=== PATIENT | male | born 1955 | race Caucasian/White ===

== ENCOUNTER → 2016-12-14 | Outpatient (CLI) | payer OTHER ==
[~2016-12-14] MED LIST: ASPCH81X PO; CALC-440 PO; CETI10TA10 PO; CHOL20007 PO; CLOP1TAB15 PO; COEN1CAP17 PO; CYAN100020 PO; DOCU100C31 PO; DOXA4TAB2 PO; FLUO20CA20 PO; FLUT0.15 NAE; GABA-112 PO; HYDR-4332 PO; HYDR50TA3 PO; HYOS1TAB PO; LANS30CA41 PO; LIVALO PO; METO1TAB71 PO; MULT-506 PO; NTRARSCL SL; OPTIRAY 320 IV PRN; OXYC-57 PO; POTA1TAB97 PO; RAMI10CA PO; SUCR1TAB29 PO; TEMA15CA4 PO; TYL325X PO
[2016-12-14 13:26] LABS: BASO % 0.2 %; BASO ABS # 0.01 K/uL (0-0.2); EOS % 3.7 %; LYMPH % 36.8 %; LYMPH ABS # 2.21 K/uL (1.2-3.4); MEAN CELL VOLUME 90.1 fL (80-100); MEAN CORPUSCULAR HEMOGLOBIN 31.7 pg (25-34); MEAN PLATELET VOLUME 9.9 fL (7.4-10.4); MONO % 7.7 %; NEUT % 51.6 %; PLATELET COUNT 183 K/uL (130-400); RED BLOOD COUNT 4.77 M/uL (4.7-6.1)
[2016-12-14 13:35] LABS: COMPLETE YES; MEAN CORPUSCULAR HGB CONC 35.1 g/dl (32-36)
[2016-12-14 13:49] LABS: ALT/SGPT 29 U/L (12-78); BLOOD UREA NITROGEN 14 mg/dl (7-18); BUN/CREATININE RATIO 14.2 (10-20); CARBON DIOXIDE 26 mmol/L (21-32); CHLORIDE 103 mmol/L (98-107); CREATININE 0.96 mg/dl (0.60-1.40); GLUCOSE 84 mg/dl (70-99); MAGNESIUM 2.1 mg/dl (1.8-2.4); POTASSIUM 3.8 mmol/L (3.5-5.1); SODIUM 140 mmol/L (136-145)
[2016-12-14 13:57] LABS: ALB/GLOB RATIO 1.4 (0.9-2); ALKALINE PHOSPHATASE 91 U/L (45-117); AST/SGOT 22 U/L (15-37)
--- NOTE | 2016-12-14 15:44 | DIAGNOSTIC IMAGING REPORT ---
CT OF THE ABDOMEN AND PELVIS WITH CONTRAST CLINICAL HISTORY: Abdominal pain. COMPARISON STUDY: CT of the abdomen and pelvis September 29, 2016. TECHNIQUE: Following IV administration of 93 mL of Optiray-320, axial images of the abdomen and pelvis were obtained from the lung bases to the proximal femurs. Images were reviewed in the axial, sagittal, and coronal planes. IV contrast was administered without complication. Oral contrast was administered. CT DOSE: 2175.06 mGy.cm FINDINGS: Lung bases are clear. Pacer leads are noted. Post surgical findings involving the stomach are unchanged. There is no pneumatosis, free air or portal venous gas. The liver, spleen, adrenal glands, kidneys and pancreas are unremarkable. There is no biliary or pancreatic ductal dilatation. There is no hydronephrosis. There are post surgical findings within the spine. The appendix is normal. An old epiploic appendage along the anterior aspect of the descending colon is incidentally noted. There is mild wall thickening with minimal mesenteric infiltration of a small bowel loop within the right mid abdomen. The extent of small bowel wall thickening has improved since exam of September 29, 2016. There is a moderate amount of stool within the colon. There is no lymphadenopathy. There are no suspicious osseous lesions. IMPRESSION: 1. Normal appendix. 2. Mild wall thickening with minimal associated mesenteric infiltration and hyperemia of a small bowel loop within the right mid abdomen. This suggests a nonspecific enteritis. Similar but more extensive findings were shown on CT of September 29, 2016. 3. Colonic diverticulosis without evidence for acute diverticulitis. Electronically signed by: Meir Vasquez M.D. 12/14/2016 3:42 PM Dictated Date/Time: 12/14/2016 3:32 PM
--- NOTE | 2016-12-18 09:41 | CODING QUERY MEDICAL NECESSITY ---
SUPPORTING DIAGNOSIS NEEDED A supporting diagnosis is required for the test/procedure performed on this patient in order for us to be reimbursed by the patient's insurance. Please provide a supporting diagnosis for the following test/procedure listed below next to the test name along with your signature. *If there is no additional diagnosis for this patient that would support the following test/procedure please document that below next to the test/procedure. Test(s)/Procedure(s) that require a supporting diagnosis: * VITAMIN D 25-HYDROXY DIAGNOSIS: * DOS: 12/14/16 Provider Signature: Date: Thank you Tianna Alejo Health Information Management Once completed, please kindly fax back to [phone] For questions please call [phone]
== END | disposition home or self-care (01) ==
LOC: C.CTS 12:54
PROVIDERS: ATTEND Nurse Practitioner
DX: K35.89 Other acute appendicitis (principal); M54.5 Low back pain; I10 Essential (primary) hypertension; E78.5 Hyperlipidemia, unspecified; K21.0 Gastro-esophageal reflux disease with esophagitis; F33.0 Major depressive disorder, recurrent, mild; E55.9 Vitamin D deficiency, unspecified

== ENCOUNTER 2016-12-22 07:29 | Day surgery (SDC) | payer OTHER ==
[2016-12-11 12:25] VITALS: BMI 41.0
--- NOTE | 2016-12-11 13:06 | PAT Medication Instructions ---
Service Date Dec 11, 2016. Current Home Medication List Acetaminophen (Tylenol), 650 MG PO Q4 PRN for Pain Aspirin (Aspirin Chewable), 81 MG PO HS Calcium Citrate-Vitamin D (Calcium Citrate + D3), 1 TAB PO QAM Cetirizine Hcl (Zyrtec), 10 MG PO QAM Cholecalciferol (Vitamin D3), 1 TAB PO QAM Clopidogrel (Plavix), 75 MG PO QAM Coenzyme Q10 (Ubidecarenone) (Co Q 10), 200 MG PO QPM Cyanocobalamin (Vitamin B12), 1 TAB PO DAILY AT NOON Docusate Sodium (Docusate Sodium), 100 MG PO BID Doxazosin Mesylate (Cardura), 4 MG PO HS Fluoxetine Hcl (Pmdd) (Fluoxetine), 1 CAP PO QPM Fluticasone Propionate (Nasal) (Flonase Allergy Relief), 1 SPRAY BHAVIK DAILY PRN for PRN Gabapentin (Neurontin), 100-200 MG PO QPM Hydrochlorothiazide (Hctz), 50 MG PO QAM Hydrocodone-Acetaminophen (LORTAB 10-325 mg), 1 TAB PO QID PRN for Pain Hyoscyamine Sulfate (Levsin), 0.125 MG PO Q6 PRN for ABD PAIN Lansoprazole (Prevacid), 30 MG PO BID Metoprolol Succinate (Toprolxl (Toprol-Xl), 100 MG PO QAM Multivitamin (Multivitamin), 1 TAB PO QAM Nitroglycerin (Nitrolingual Pumpspray), [address] SL DIRECTED PRN for Chest Pain Potassium Chloride (K-Tab), 1 TAB PO BID Ramipril (Ramipril), 1 CAP PO BID Sucralfate (Carafate), 1 TAB PO QID Temazepam (Restoril), 15 MG PO HS [Livalo], 4 MG PO HS Medication Instructions For Your Scheduled Surgery - To continue Aspirin prior to surgery per surgeon/news wire photo operator instructions: Aspirin (Aspirin Chewable), 81 MG PO HS - To hold Plavix 7 days prior to surgery per surgeon/news wire photo operator instructions: Clopidogrel (Plavix), 75 MG PO QAM - Hold the following medications starting 12/12/16: Coenzyme Q10 (Ubidecarenone) (Co Q 10), 200 MG PO QPM - Hold the following medications the morning of surgery: Sucralfate (Carafate), 1 TAB PO QID Potassium Chloride (K-Tab), 1 TAB PO BID Multivitamin (Multivitamin), 1 TAB PO QAM Hyoscyamine Sulfate (Levsin), 0.125 MG PO Q6 PRN for ABD PAIN Hydrochlorothiazide (Hctz), 50 MG PO QAM Docusate Sodium (Docusate Sodium), 100 MG PO BID Cyanocobalamin (Vitamin B12), 1 TAB PO DAILY AT NOON Cetirizine Hcl (Zyrtec), 10 MG PO QAM Cholecalciferol (Vitamin D3), 1 TAB PO QAM Calcium Citrate-Vitamin D (Calcium Citrate + D3), 1 TAB PO QAM Ramipril (Ramipril), 1 CAP PO BID - Take the following medications the morning of surgery with a sip of water: Nitroglycerin (Nitrolingual Pumpspray), 1 SPRAY SL DIRECTED PRN for Chest Pain (if needed) Metoprolol Succinate (Toprolxl (Toprol-Xl), 100 MG PO QAM Lansoprazole (Prevacid), 30 MG PO BID Hydrocodone-Acetaminophen (LORTAB 10-325 mg), 1 TAB PO QID PRN for Pain (okay to take up to 4 hours prior to surgery if needed) Fluticasone Propionate (Nasal) (Flonase Allergy Relief), 1 SPRAY BHAVIK DAILY PRN for PRN Acetaminophen (Tylenol), 650 MG PO Q4 PRN for Pain - Hold the following medications as scheduled the night before surgery: Ramipril (Ramipril), 1 CAP PO BID - Take the following medications as scheduled the night before surgery: Temazepam (Restoril), 15 MG PO HS Sucralfate (Carafate), 1 TAB PO QID Potassium Chloride (K-Tab), 1 TAB PO BID Nitroglycerin (Nitrolingual Pumpspray), 1 SPRAY SL DIRECTED PRN for Chest Pain (if needed) Lansoprazole (Prevacid), 30 MG PO BID Hyoscyamine Sulfate (Levsin), 0.125 MG PO Q6 PRN for ABD PAIN Hydrocodone-Acetaminophen (LORTAB 10-325 mg), 1 TAB PO QID PRN for Pain Gabapentin (Neurontin), 100-200 MG PO QPM Fluticasone Propionate (Nasal) (Flonase Allergy Relief), 1 SPRAY BHAVIK DAILY PRN for PRN Fluoxetine Hcl (Pmdd) (Fluoxetine), 1 CAP PO QPM Doxazosin Mesylate (Cardura), 4 MG PO HS Docusate Sodium (Docusate Sodium), 100 MG PO BID Acetaminophen (Tylenol), 650 MG PO Q4 PRN for Pain [Livalo], 4 MG PO HS If you have any questions please call us at [phone] (Courtney Tellez PA-C) or [phone] or [phone]
[2016-12-11 14:15] LABS: BASO % 0.6 %; BASO ABS # 0.03 K/uL (0-0.2); COMPLETE YES; HEMATOCRIT 42.3 % (42-52); LYMPH % 34.7 %; LYMPH ABS # 1.89 K/uL (1.2-3.4); MEAN CELL VOLUME 89.8 fL (80-100); MEAN CORPUSCULAR HEMOGLOBIN 31.6 pg (25-34); MEAN CORPUSCULAR HGB CONC 35.2 g/dl (32-36); MEAN PLATELET VOLUME 10.2 fL (7.4-10.4); MONO % 12.3 %; NEUT % 48.4 %; PLATELET COUNT 181 K/uL (130-400); RED BLOOD COUNT 4.71 M/uL (4.7-6.1); WHITE BLOOD COUNT 5.45 K/uL (4.8-10.8)
[2016-12-11 14:32] LABS: BUN/CREATININE RATIO 13.7 (10-20); CALCIUM 9.1 mg/dl (8.5-10.1); CREATININE 0.95 mg/dl (0.60-1.40); POTASSIUM 3.8 mmol/L (3.5-5.1)
[2016-12-22] VITALS (7 sets, daily range): BP systolic 124–150; BP diastolic 53–99; PULSE 69–76; TEMP 36.5–36.9; O2SAT 93–96; Ht 170.2 cm; Wt 121.3 kg
[~2016-12-22] VITALS: Ht 170.2 cm; Wt 121.3 kg
[~2016-12-22 07:29] MED LIST changes: +CEFAZOLIN 3000 MG/65 ML D5W 65 ML IV SCH; +LACTATED RINGER'S 1000ML 1,000 ML IV SCH; -OPTIRAY 320 IV PRN; -OXYC-57 PO
[2016-12-22] MEDS ORDERED: MIDAZOLAM HCL 1 MG/ML 2ML VIAL ONE (08:04)
[2016-12-22] MEDS ORDERED: PROPOFOL IV EMULSION 10 MG/ML 20 ML VIAL IV ONE (08:04)
[2016-12-22] MEDS ORDERED: FENTANYL CITRATE INJ 50 MCG/1 ML 2 ML VIAL ONE ×3 (08:04→10:27)
[2016-12-22] MEDS ORDERED: LIDOCAINE HCL 2% 2 ML VIAL (20MG/ML) ONE (08:04)
[2016-12-22] MEDS ORDERED: ONDANSETRON INJ 2 MG/ML 2 ML VIAL ONE (08:04)
[2016-12-22] MEDS ORDERED: ROCURONIUM BROMIDE 10 MG/ML 5 ML VIAL ONE (08:04)
[2016-12-22] MEDS ORDERED: LIDOCAINE HCL 1% 20 ML VIAL ONE (09:11)
[2016-12-22] MEDS ORDERED: BUPIVACAINE 0.5 % 5 MG/1 ML MPF 30ML VIAL ONE (09:12)
[2016-12-22] MEDS ORDERED: BACITRACIN OINT 15 GM TUBE ONE (09:12)
--- NOTE | 2016-12-22 09:13 | History and Physical ---
History & Physical Date & Time of Service: Dec 22, 2016 at 09:01 Chief Complaint: Chronic Cholecystitis Primary Care Physician: Apolonia Bolanos History of Present Illness Source: patient pt is a 61 year old male who presents with dysfunction of gallbladder, pt persents with RUQ pain, nausea, no vomiting, pt had HIDA scan showed lower EF of gallbladder, pt requests to do cholecystectomy, pt had CAD and 6 heart stents in and pacemaker in 2001, pt saw his broadcast news producer for cardiac clearence, pt acepted the surgery risks. Past Medical/Surgical History Medical Problems: (1) A-fib Status: Chronic (2) AAA (abdominal aortic aneurysm) Status: Resolved (3) ATRIAL FIBRILLATION Status: Chronic (4) CARDIAC PACEMAKER IN SITU Status: Chronic (5) CORONARY ATHEROSCLEROSIS OF [place] CORONARY VESSEL Status: Chronic (6) ESOPHAGEAL STRICTURE Status: Chronic (7) ESOPHAGUS DISORDERS NEC Status: Chronic (8) Heart disease Status: Chronic (9) HYPERLIPIDEMIA NEC/NOS Status: Chronic (10) Myocardial infarction Status: Resolved (11) OBESITY, NOS Status: Chronic (12) OLD MYOCARDIAL INFARCT Status: Chronic (13) Post percutaneous transluminal coronary angioplasty Status: Resolved Surgical Problems: (1) Stented coronary artery Permanent Comment: x6 Status: Resolved Family History Cancer Diabetes mellitus Heart disease Hypertension Kidney disease Kidney stones Lung disease Social History Smoking Status: Never Smoker Smokeless Tobacco Use: No Alcohol Use: occasionally Drug Use: none Marital Status: Occupational Status: employed Immunizations History of Influenza Vaccine: No History of Tetanus Vaccine?: Yes Tetanus Immunization Date: May 18, 2001 History of Pneumococcal: No History of Hepatitis B Vaccine: Unknown Multi-Drug Resistant Organisms History of MDRO: No Allergies Coded Allergies: Loratadine (Verified Allergy, Severe, BREATHING DIFFICULTY, 12/22/16) Shellfish (Verified Allergy, Severe, DYSPNEA, 12/22/16) Diphenhydramine (Verified Allergy, Intermediate, HIVES, 12/22/16) HIVES Macrolides (Verified Allergy, Intermediate, E-MYCIN=HIVES; "MYCINS"-- JAUNDICE, 12/22/16) Fish Allergy (Verified Allergy, Mild, THROAT SWELLS, 12/22/16) Rofecoxib (Verified Adverse Reaction, Severe, CARDIAC SX, 12/22/16) Home Medications Scheduled Aspirin (Aspirin Chewable), 81 MG PO HS Calcium Citrate-Vitamin D (Calcium Citrate + D3), 1 TAB PO BID Cetirizine Hcl (Zyrtec), 10 MG PO QAM Cholecalciferol (Vitamin D3), 1 TAB PO QAM Clopidogrel (Plavix), 75 MG PO QAM Coenzyme Q10 (Ubidecarenone) (Co Q 10), 200 MG PO QPM Cyanocobalamin (Vitamin B12), 1 TAB PO DAILY AT NOON Docusate Sodium (Docusate Sodium), 100 MG PO BID Doxazosin Mesylate (Cardura), 4 MG PO HS Fluoxetine Hcl (Pmdd) (Fluoxetine), 1 CAP PO QPM Gabapentin (Neurontin), 100-200 MG PO QPM Hydrochlorothiazide (Hctz), 50 MG PO QAM Lansoprazole (Prevacid), 30 MG PO BID Metoprolol Succinate (Toprolxl (Toprol-Xl), 100 MG PO QAM Multivitamin (Multivitamin), 1 TAB PO QAM Potassium Chloride (K-Tab), 1 TAB PO BID Ramipril (Ramipril), 1 CAP PO BID Sucralfate (Carafate), 1 TAB PO QID Temazepam (Restoril), 15 MG PO HS [Livalo], 4 MG PO HS Scheduled PRN Acetaminophen (Tylenol), 650 MG PO Q4 PRN for Pain Fluticasone Propionate (Nasal) (Flonase Allergy Relief), 1 SPRAY BHAVIK DAILY PRN for PRN Hydrocodone-Acetaminophen (LORTAB 10-325 mg), 1 TAB PO QID PRN for Pain Hyoscyamine Sulfate (Levsin), 0.125 MG PO Q6 PRN for ABD PAIN Nitroglycerin (Nitrolingual Pumpspray), [address] SPR[address] SL DIRECTED PRN for Chest Pain Review of Systems Constitutional: No chills, No fatigue, No fever, No problem reported, No sweats , No weakness, No weight loss Eyes: No diplopia, No discharge, No eye pain, No problem reported, No redness, No worsening of vision ENT: No dental problems, No hearing loss, No nasal symptoms, No problem reported, No sore throat, No tinnitus, No trouble swallowing, No unusual epistaxis Respiratory: No cough, No dyspnea at rest, No dyspnea on exertion, No hemoptysis, No problem reported, No shortness of breath, No sputum, No wheezing Cardiovascular: No PND, No chest pain, No claudication, No edema, No orthopnea , No palpitations, No problem reported Abdomen: + nausea (RUQ pain, ), + pain Musculoskeletal: No calf pain, No joint pain, No muscle pain, No problem reported, No swelling Genitourinary - Male: No dysuria, No hematuria, No impotence, No lesions, No penile discharge, No problem reported, No urinary frequency, No urinary hesitancy, No urinary incontinence, No urinary retention, No urinary urgency Neurologic: No balance problems, No memory loss, No numbness/tingling, No paralysis, No problem reported, No vertigo, No weakness Psychiatric: No anhedonism, No anxiety, No depression symptoms, No insomnia, No problem reported, No substance abuse Endocrine: No excessive thirst, No excessive urination, No fatigue, No problem reported Hematologic / Lymphatic: No abnormal bleeding/bruising, No clotting problems, No night sweats, No problem reported, No swollen lymph nodes Physical Exam Vital Signs Date Time Temp Pulse Resp B/P Pulse Ox O2 Delivery O2 Flow Rate FiO2 12/22/16 07:40 36.9 76 18 133/85 95 Room Air General Appearance: WD/WN Head: normocephalic Eyes: normal inspection ENT: normal ENT inspection Neck: supple, no JVD Respiratory/Chest: chest non-tender, lungs clear, normal breath sounds Cardiovascular: regular rate, rhythm, no edema, no gallop, no JVD Abdomen/GI: normal bowel sounds, non tender, soft, + tenderness (tenderness at RUQ, no rebound pain, ) Extremities/Musculoskelatal: normal inspection, no calf tenderness, normal capillary refill Neurologic/Psych: middleware 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 architect II-XII nml as tested, no motor/sensory deficits, alert, normal mood/affect Skin: normal color, warm/dry, no rash Diagnostics Diagnostic Radiology HIDA scan, dysfunction of gallbladder disorder Impression Assessment and Plan IMP chronic cholecystitis, dysfunction of gallbladder disorder Plan, pt will have laparospic cholecystectomy, possible open or cholangiogram, D /W benefits, risks and alternatives of catie procedure, the risks- infection, bleeding, injury CBD, bowel, may need ERCP, biliary leak, AR, DVT, stroke, , incisonal hernia, pt understood, he and his agree with the surgery, I answered all questions, ASA Classification: ASA Class III VTE Prophylaxis Given or contraindicated: SCD's
--- NOTE | 2016-12-22 09:13 | History & Physical Bridge Note ---
H&P Re-Evaluation Bridge Note: I have examined the patient, reviewed the History & Physical and in the interval since the performance of the History & Physical I have noted the following changes of clinical significance: No changes noted
[2016-12-22] MEDS ORDERED: DEXAMETHASONE SOD INJ 4 MG/ML VIAL ONE (09:51)
[2016-12-22] MEDS ORDERED: HYDROmorphone INJ 1 MG/ML SYR IV PRN ×2 (10:00→11:30)
[2016-12-22] MEDS ORDERED: EpHEDrine SULFATE INJ 50 MG/ML AMP IV PRN (10:00)
[2016-12-22] MEDS ORDERED: PROMETHAZINE HCL INJ 6.25 MG in SODIUM CHLORIDE 0.9% 50ML 50 ML IV PRN (10:00)
[2016-12-22] MEDS ORDERED: ONDANSETRON INJ 2 MG/ML 2 ML VIAL IV PRN ×2 (10:00→11:30)
[2016-12-22] MEDS ORDERED: ATROPINE SULFATE 0.1 MG/ML 5ML SYR IV PRN (10:00)
[2016-12-22] MEDS ORDERED: GLYCOPYRROLATE INJ 0.2 MG/ML VIAL ONE (10:53)
[2016-12-22] MEDS ORDERED: NEOSTIGMINE METHYLSULFATE 5 MG/5 ML SYR ONE (10:53)
[2016-12-22] MEDS ORDERED: D5W AND 1/2NSS + 20MEQ KCL 1,000 ML IV SCH (11:21)
--- NOTE | 2016-12-22 11:21 | [facility] Post Operative Brief Note ---
Immediate Operative Summary Operative Date Dec 22, 2016. Pre-Operative Diagnosis Chronic cholecystitis, dysfunction of gallbladder disorder Post-Operative Diagnosis Chronic cholecystitis, dysfunction of gallbladder disorder Procedure(s) Performed Laparoscopic Cholecystectomy Surgeon Dr. Durant Lead Oxide Mill Tender Surgeon(s) None Estimated Blood Loss 20mL Findings chronic cholecystitis Fluids (cc crystalloids) 900ml Specimens Specimen A. Gallbladder Drains none Anesthesia general Complication(s) None Disposition Recovery Room / PACU
[2016-12-22] MEDS ORDERED: OXYC-57 PO (11:26)
--- NOTE | 2016-12-22 11:28 | Discharge Instructions ---
Discharge Instructions Visit Reason for Visit: Chronic Cholecystitis Discharge Discharge Diagnosis / Problem: S/P laparoscopic cholecystectomy Discharge Goals Goal(s): Decrease discomfort, Improve function Activity Recommendations Activity Limitations: per Instructions/Follow-up section Lifting Limitations: no more than 25 pounds Exercise/Sports Limitations: gradually increase as tolerated May Resume Sexual Activity: when tolerated Shower/Bathe: may shower/bathe in 3 days Driving or Machine Use: resume 3 days after discharge Anesthesia . Post Anesthesia Instructions: If you have had General Anesthesia or IV Sedation: * Do not drive today. * Resume driving when surgeon permits. * Do not make important decisions or sign legal documents today. * Call surgeon for: 1. Temperature elevations greater than 101 degrees F. 2. Uncontrollable pain. 3. Excessive bleeding. 4. Persistent nausea and vomiting. 5. Medication intolerance (nausea, vomiting or rash). * For nausea and vomiting use only clear liquids such as: tea, soda, bouillon until nausea subsides, then gradually increase diet as tolerated. * If you have any concerns or questions, call your surgeon's office. If physician is unavailable and it is an emergency, call 911 or go to the nearest emergency room. . Instructions / Follow-Up Instructions / Follow-Up keep the dressing on for 4 days, he can take a shower on 12/26/2016, no driving while taking pain medicine. Follow up 1 week, . Procedures Procedures Performed: Laparoscopic Cholecystectomy Pending Studies Studies pending at discharge: no Medical Emergencies . Who to Call and When: Medical Emergencies: If at any time you feel your situation is an emergency, please call 911 immediately. . Non-Emergent Contact Non-Emergency issues call your: Primary Care Provider Call Non-Emergent contact if: you have a fever, temperature is above 100.5, your pain is not controlled, your pain is worsening, wound has increased drainage, wound has increased redness . . "Provider Documentation" section prepared by John Durant.
[2016-12-22] MEDS ORDERED: OXYCODONE/ACETAMINOPHEN 5-325 TAB PO PRN (11:30)
[2016-12-22] MEDS: FENTANYL CITRATE INJ 50 MCG/1 ML 2 ML VIAL IV PRN ×3 (11:35→11:45)
--- NOTE | 2016-12-22 12:12 | Anesthesiology Progress Note ---
Anesthesia Post Op Note Date & Time Dec 22, 2016 at 12:13 Vital Signs Pain Intensity: 2 Vital Signs Past 12 Hours Date Time Temp Pulse Resp B/P Pulse Ox O2 Delivery O2 Flow Rate FiO2 12/22/16 12:05 36.4 71 16 124/83 95 Nasal Cannula 2 12/22/16 11:55 73 12 136/94 95 Nasal Cannula 2 12/22/16 11:45 70 21 127/86 95 Nasal Cannula 2 12/22/16 11:35 70 18 132/92 100 Mask 10 12/22/16 11:27 36.0 71 16 146/93 100 Mask 10 12/22/16 07:40 36.9 76 18 133/85 95 Room Air Notes Mental Status: alert / awake / arousable, participated in evaluation Pt Amnestic to Procedure: Yes Nausea / Vomiting: adequately controlled Pain: adequately controlled Airway Patency, RR, SpO2: stable & adequate BP & HR: stable & adequate Hydration State: stable & adequate Anesthetic Complications: no major complications apparent
--- NOTE | 2016-12-22 12:57 | OPERATIVE REPORT ---
DATE OF OPERATION: 12/22/2016 PREOPERATIVE DIAGNOSIS: Chronic cholecystitis, dysfunctional gallbladder disease. POSTOPERATIVE DIAGNOSIS: Same. PROCEDURE: Laparoscopic cholecystectomy. SURGEON: Dr. John Durant. ANESTHESIA: General. ESTIMATED BLOOD LOSS: About 20 mL. FINDINGS: Chronic cholecystitis. COMPLICATIONS: None. IV FLUIDS: 900 mL. INDICATIONS FOR THE PROCEDURE: This is a 61-year-old gentleman who presented with right upper quadrant pain. The patient had HIDA scan showing dysfunctional gallbladder. The patient will be required to do laparoscopic cholecystectomy, possible open, possible cholangiogram. I did talk to the patient about the benefit and risk, alternate procedure. I indicated the risks may include but not limited such as bleeding, infection, injury to common bile duct, injury to bowel, myocardial infarction, DVT, stroke, incisional hernia, bile leak and even . The patient understands. He signed informed consent and I answered all questions. DETAILS OF PROCEDURE: We brought the patient to the OR, put the patient in the supine position. The patient received SCD on bilateral legs to prevent DVT. Also, the patient received 2 grams Ancef IV for prophylactic antibiotic. The patient received general anesthesia without difficulty. The abdomen was prepped and draped in routine sterile fashion. After a timeout, I injected local anesthesia by using 1% lidocaine mixed with 0.5% Marcaine around the umbilical area. I made a small incision just above umbilical, opened fascia and opened peritoneum under direct vision. I put a Margie trocar in, connected to CO2 to create pneumoperitoneum. Flow rate is 6 liter per minute. Pressure not more than 14 mmHg. Once we got a nice pneumoperitoneum, we put a 10 mm camera in to look around the abdomen. Shows no more findings on the small bowel, large bowel and liver. However, there was significant chronic inflammation on the gallbladder where the omentum covers the gallbladder on . Then, we put another three 5 mm trocar on the right upper quadrant. Once all trocars in, I put grasper in to hold the base of the gallbladder, put the direction to the diaphragm. Then, we put another grasper in to hold the pouch over the gallbladder, put the latter to expose the triangle of Calot. We peeled out the omentum from the gallbladder, we checked, no active bleeding. The cystic duct was identified and mobilized. I put two 5 mm metal clips on the proximal cystic duct, one on the distal cystic duct. Then I used scissor for transection of the cystic duct. Then the cystic artery was identified and mobilized. I put two 5 mm metal clips on the proximal cystic artery. On the distal cystic artery. Then I used scissor for transection of cystic artery. Then I used Bovie to take down the gallbladder from the liver bed, we checked, no active bleeding and no bile leak. Then we removed the gallbladder through the catch bag. Then we reinserted Margie trocar in and created pneumoperitoneum again. Checked abdomen and liver bed, no active bleeding, no bile leak. Then we removed all trocars under direct vision. No active bleeding from trocar sites. The pneumoperitoneum was released. The umbilical incision, fascial layer closed by #1 Vicryl [id number] x2, closed subcutaneous layer by using 2-0 Vicryl interrupted, and closed skin by using 4-0 Vicryl. I then closed another 5mm trocar site of skin only by using 4-0 Vicryl. Then we put the dressing on. The patient tolerated the procedure well. After the procedure, I did talk to the patient and about the OR finding and procedure. We did also give them the postop care instruction. The patient transferred to recovery room in stable condition. All the instrument, needle and sponge count correct x2 at the end of the case. The specimen sent to pathology. Also, instruct patient and patient's resume Plavix today. They understand. I will follow the patient in 1 week. I attest to the content of the Intraoperative Record and any orders documented therein. Any exceptions are noted below. JOSÉ ANTONIO
[2016-12-22] MEDS ORDERED: NURSING VERBAL MED ORDER ONE (15:03)
[2016-12-22] MEDS ORDERED: METOCLOPRAMIDE HCL INJ 5 MG/ML 2 ML VIAL ONE (15:04)
== END 2016-12-22 16:57 | disposition home or self-care (01) ==
LOC: C.ACU 07:29
PROVIDERS: ATTEND Surgery
DX: K80.10 Calculus of gallbladder with chronic cholecystitis without obstruction (principal); K82.8 Other specified diseases of gallbladder; I25.10 Atherosclerotic heart disease of native coronary artery without angina pectoris; I48.91 Unspecified atrial fibrillation; I25.2 Old myocardial infarction; F32.9 Major depressive disorder, single episode, unspecified; G47.33 Obstructive sleep apnea (adult) (pediatric); M19.90 Unspecified osteoarthritis, unspecified site; Z95.0 Presence of cardiac pacemaker; Z91.013 Allergy to seafood; Z98.84 Bariatric surgery status; E66.9 Obesity, unspecified; Z68.41 Body mass index [BMI] 40.0-44.9, adult; Z96.653 Presence of artificial knee joint, bilateral; Z98.890 Other specified postprocedural states; Z88.1 Allergy status to other antibiotic agents; Z79.02 Long term (current) use of antithrombotics/antiplatelets; Z79.82 Long term (current) use of aspirin; Z80.9 Family history of malignant neoplasm, unspecified; Z83.3 Family history of diabetes mellitus; Z82.49 Family history of ischemic heart disease and other diseases of the circulatory system; Z84.1 Family history of disorders of kidney and ureter

== ENCOUNTER → 2017-02-15 | Outpatient (CLI) | payer OTHER ==
[~2017-02-15] MED LIST changes: -CEFAZOLIN 3000 MG/65 ML D5W 65 ML IV SCH; -LACTATED RINGER'S 1000ML 1,000 ML IV SCH; +METO-649 PO; -METO1TAB71 PO
--- NOTE | 2017-02-15 17:51 | ECHOCARDIOGRAM REPORT ---
*NOTICE TO RECEIVING DEMOCRAT AGENCY This information is strictly Confidential and protected under [place] law. [place] law prohibits you from making any further disclosure of this information unless further disclosure is expressly permitted by the written consent of the person to whom it pertains or is authorized by law. A general authorization for the release of medical or other information is not sufficient for this purpose. Hospital accepts no responsibility if the information is made available to any other person, INCLUDING THE PATIENT. Interpretation Summary * Name: TAWNYA BUENO Study Date: 02/15/2017 03:04 PM BP: 167/97 mmHg * Patient Location: [facility] HR: 71 * : 1955 (M/d/yyyy) Gender: Male Height: 67 in * Age: 61 yrs Ethnicity: CA Weight: 260 lb * Ordering Physician: Pedro Burks * Referring Physician: Apolonia Bolanos * Performed By: Carola Myers RCS * * Reason For Study: CAD * BSA: 2.3 m2 * -- Conclusions -- * 1. Normal LV size. Mild concentric LVH. * 2. Normal LV systolic function. LVEF 55-60%. No regional wall motion abnormalities. * 3. Normal RV size and function. * 4. Moderate aortic regurgitation. * 5. Mild mitral regurgitation. * 6. Mildly dilated aortic root (4.3 cm). * 7. Grade I diastolic dysfunction. * 8. No prior studies for comparison. Procedure Details * A complete two-dimensional transthoracic echocardiogram was performed (2D, M-mode, Doppler and color flow Doppler). Left Ventricle * The left ventricle is normal in size. * There is mild concentric left ventricular hypertrophy. * Ejection Fraction = 55-60%. * No regional wall motion abnormalities noted. Right Ventricle * There is a pacemaker lead in the right ventricle. * The right ventricle is grossly normal size. * The right ventricular systolic function is normal as assessed by tricuspid annular plane systolic excursion (TAPSE) (normal >1.5 cm). Atria * The left atrium is borderline dilated. * Right atrial size is normal. * No ASD detected; PFO is not assessed. Mitral Valve * The mitral valve is grossly normal. * There is mild mitral annular calcification. * There is no mitral valve stenosis. * There is mild mitral regurgitation. Tricuspid Valve * The tricuspid valve is not well visualized. * There is no tricuspid stenosis. * There is trace tricuspid regurgitation. Aortic Valve * The aortic valve opens well. * No hemodynamically significant valvular aortic stenosis. * Moderate aortic regurgitation. Pulmonic Valve * The pulmonary valve is inadequately visualized, but the Doppler data is adequate for interpretation. * Pulmonic stenosis is absent. * Trace pulmonic valvular regurgitation. Great Vessels * The aortic Sinus(es) of Valsalva are mildly dilated. Pericardium/Pleural * There is no pericardial effusion. Great Vessels * There is no evidence of pulmonary hypertension. The PA systolic pressure is less than 36 mmHg. Left Ventricular Diastolic Function * Grade I diastolic dysfunction, (abnormal relaxation pattern). MMode 2D Measurements and Calculations IVSd 1.1 cm IVSs 1.6 cm LVIDd 5.6 cm LVIDs 4.0 cm LVPWd 1.1 cm LVPWs 1.7 cm IVS/LVPW 0.97 FS 28.5 % EDV(Teich) 151.2 ml ESV(Teich) 68.9 ml EF(Teich) 54.4 % EDV(cubed) 171.9 ml ESV(cubed) 62.7 ml EF(cubed) 63.5 % % IVS thick 48.6 % % LVPW thick 47.9 % LV mass(C)d 251.9 grams LV mass(C)dI 111.4 grams/m\S\2 LV mass(C)s 270.5 grams LV mass(C)sI 119.6 grams/m\S\2 CO(Teich) 5.8 l/min CI(Teich) 2.6 l/min/m\S\2 SV(Teich) 82.3 ml SI(Teich) 36.4 ml/m\S\2 CO(cubed) 7.8 l/min CI(cubed) 3.4 l/min/m\S\2 SV(cubed) 109.2 ml SI(cubed) 48.3 ml/m\S\2 Ao root diam 4.3 cm Ao root area 14.8 cm\S\2 ACS 1.8 cm LA dimension 4.8 cm LA/Ao 1.1 LVAd ap4 45.5 cm\S\2 LVLd ap4 9.9 cm EDV(MOD-sp4) 174.0 ml LVAs ap4 24.8 cm\S\2 LVLs ap4 8.1 cm ESV(MOD-sp4) 68.0 ml EF(MOD-sp4) 60.9 % LVAd ap2 43.0 cm\S\2 LVLd ap2 10.2 cm EDV(MOD-sp2) 152.0 ml LVAs ap2 23.8 cm\S\2 LVLs ap2 8.6 cm ESV(MOD-sp2) 57.0 ml EF(MOD-sp2) 62.5 % CO(MOD-sp4) 7.5 l/min CI(MOD-sp4) 3.3 l/min/m\S\2 SV(MOD-sp4) 106.0 ml SI(MOD-sp4) 46.9 ml/m\S\2 CO(MOD-sp2) 6.7 l/min CI(MOD-sp2) 3.0 l/min/m\S\2 SV(MOD-sp2) 95.0 ml SI(MOD-sp2) 42.0 ml/m\S\2 Doppler Measurements and Calculations MV E max vikash 64.1 cm/sec MV A max vikash 68.9 cm/sec MV E/A 0.93 MV P1/2t max vikash 77.1 cm/sec MV P1/2t 87.0 msec MVA(P1/2t) 2.5 cm\S\2 MV dec slope 259.5 cm/sec\S\2 MV dec time 0.20 sec Ao V2 max 147.3 cm/sec Ao max PG 8.7 mmHg Ao max PG (full) 4.5 mmHg AI max vikash 416.8 cm/sec AI max PG 69.5 mmHg AI dec slope 246.2 cm/sec\S\2 AI P1/2t 495.9 msec LV V1 max PG 4.1 mmHg LV V1 max 101.8 cm/sec PA V2 max 78.9 cm/sec PA max PG 2.5 mmHg PI max vikash 214.8 cm/sec PI max PG 18.4 mmHg PI dec slope 238.8 cm/sec\S\2 PI P1/2t 263.4 msec TR max vikash 237.0 cm/sec
== END | disposition home or self-care (01) ==
LOC: C.CPL 14:39
PROVIDERS: ATTEND Nurse Practitioner
DX: I25.10 Atherosclerotic heart disease of native coronary artery without angina pectoris (principal); E78.5 Hyperlipidemia, unspecified; I10 Essential (primary) hypertension

== ENCOUNTER → 2017-06-28 | Outpatient (CLI) | payer OTHER ==
[~2017-06-28] MED LIST changes: -METO-649 PO; +METO1TAB71 PO
[2017-06-28 11:55] LABS: BASO % 0.5 %; BASO ABS # 0.03 K/uL (0-0.2); COMPLETE YES; HEMATOCRIT 40.6 % (42-52); IG% 0.2 %; LYMPH % 19.1 %; LYMPH ABS # 1.24 K/uL (1.2-3.4); MEAN CELL VOLUME 88.6 fL (80-100); MEAN CORPUSCULAR HEMOGLOBIN 30.8 pg (25-34); MEAN CORPUSCULAR HGB CONC 34.7 g/dl (32-36); MEAN PLATELET VOLUME 10.1 fL (7.4-10.4); MONO % 9.3 %; NEUT % 68.9 %; PLATELET COUNT 166 K/uL (130-400); RED BLOOD COUNT 4.58 M/uL (4.7-6.1); WHITE BLOOD COUNT 6.48 K/uL (4.8-10.8)
[2017-06-28 12:15] LABS: ALT/SGPT 23 U/L (12-78); BLOOD UREA NITROGEN 18 mg/dl (7-18); BUN/CREATININE RATIO 19.9 (10-20); CALCIUM 8.7 mg/dl (8.5-10.1); CARBON DIOXIDE 28 mmol/L (21-32); CHLORIDE 105 mmol/L (98-107); CHOLESTEROL 131 mg/dl (0-200); CREATININE 0.91 mg/dl (0.60-1.40); GLUCOSE,FASTING 101 mg/dl (70-99); MAGNESIUM 1.9 mg/dl (1.8-2.4); POTASSIUM 3.4 mmol/L (3.5-5.1); SODIUM 141 mmol/L (136-145)
[2017-06-28 12:24] LABS: ALB/GLOB RATIO 1.3 (0.9-2); ALKALINE PHOSPHATASE 78 U/L (45-117); AST/SGOT 17 U/L (15-37); CHOLESTEROL/HDL RATIO 2.6; HDL CHOLESTEROL 51 mg/dl; LDL CHOLESTEROL CALCULATED 61 mg/dl; TRIGLYCERIDES 94 mg/dl (0-150); VERY LOW DENSITY LIPOPROT CALC 19 mg/dl
--- NOTE | 2017-07-07 11:45 | CODING QUERY MEDICAL NECESSITY ---
CQSUPPORTING DIAGNOSIS NEEDED A supporting diagnosis is required for the test/procedure performed on this patient in order for us to be reimbursed by the patient's insurance. Please provide a supporting diagnosis for the following test/procedure listed below next to the test name along with your signature. *If there is no additional diagnosis for this patient that would support the following test/procedure please document that below next to the test/procedure. Test(s)/Procedure(s) that require a supporting diagnosis: DOS 06/28/17 PROSTATE SPECIFIC (PSA) TEST Provider Signature: Date: Thank you Kathy Casas Health Information Management Once completed, please kindly fax back to [phone] For questions please call [phone]
== END | disposition home or self-care (01) ==
LOC: C.LABPBG 09:41
PROVIDERS: ATTEND Nurse Practitioner
DX: E55.9 Vitamin D deficiency, unspecified (principal); E78.5 Hyperlipidemia, unspecified; M54.5 Low back pain; E03.9 Hypothyroidism, unspecified; D51.1 Vitamin B12 deficiency anemia due to selective vitamin B12 malabsorption with proteinuria; I10 Essential (primary) hypertension; K21.0 Gastro-esophageal reflux disease with esophagitis; Z12.5 Encounter for screening for malignant neoplasm of prostate

== ENCOUNTER → 2017-10-08 | Outpatient (CLI) | payer OTHER ==
[~2017-10-08] MED LIST changes: +METO-649 PO; -METO1TAB71 PO; +REGADENOSON 0.4 MG/5 ML SYR ONE
--- NOTE | 2017-10-08 21:20 | Myocardial Perfusion Study ---
Myocardial Perfusion Study Rpt Myocardial Perfusion Study Rpt Date of Service 10/08/2017 Myocardial Perfusion Study Rpt Procedure: 1. Myocardial perfusion study performed in multiple views/images 2. Lexiscan pharmacologic stress ECG Indications: 1. Chest pain 2. Multivessel CAD Consent: Informed written consent was obtained prior to the procedure. Ordering physician: Dr. Jacome Procedural details: For the stress portion of the study, Lexiscan 0.4 mg was intravenously administered followed by a saline flush. This was followed by 32.9 mCi of technetium 99m Cardiolite, injected at 11:28 a.m. on 10/08/2017. 30 minutes following the injection, imaging of the heart was performed in multiple projections. For the rest portion of the study, 10.9 mCi technetium 99m Cardiolite was injected intravenously at 9:45 a.m. on 10/08/17. 1 hour following the injection, imaging of the heart was performed in the same projections. Lexiscan stress ECG: Resting ECG demonstrated: NSR at 71 bpm. Normal ECG. Maximum heart rate: 73 bpm Resting blood pressure: 160/96 mmHg Maximum blood pressure: 160/96 mmHg Maximal, age-predicted heart rate: 46 % Significant ST changes: None Arrhythmia: None Symptoms: Chest pain Findings: Rotating raw imaging demonstrated no significant lung uptake. There is no significant motion artifact. Heart size appeared normal. Myocardial perfusion demonstrated no significant fixed or reversible defect to suggest infarct or ischemia. Ejection fraction: 53 % Wall motion: Normal No significant transient ischemic dilation. Impression: 1. Normal myocardial perfusion study without suggestion of significant ischemia or infarct. 2. Low normal LV systolic function. EF 53%. 3. Normal wall motion. 4. No arrhythmia. 5. Lexiscan induced chest pain. 6. Nondiagnostic Lexiscan ECG.
== END | disposition home or self-care (01) ==
LOC: C.NUCL 09:27
PROVIDERS: ATTEND Internal Medicine Cardiovascular Disease
DX: I10 Essential (primary) hypertension (principal); I25.10 Atherosclerotic heart disease of native coronary artery without angina pectoris; R07.89 Other chest pain

== ENCOUNTER → 2017-10-22 | Outpatient (CLI) | payer OTHER ==
[~2017-10-22] MED LIST changes: +NURSING VERBAL MED ORDER ONE; -REGADENOSON 0.4 MG/5 ML SYR ONE
--- NOTE | 2017-10-22 12:59 | DIAGNOSTIC IMAGING REPORT ---
THORACIC SPINE WITHOUT HISTORY: 62 years-old Male THORACIC BACK PAIN acute generalized back pain COMPARISON: Chest CT 09/16/2015 TECHNIQUE: Multiplanar multisequence MRI of the thoracic spine was obtained without contrast. FINDINGS: Mild artifact on the power generating plant operator images from the patient's left pectoral pacemaker. Display Department Manager images demonstrate no gross abnormality of the chest, imaged neck or abdomen. Imaged posterior fossa structures are unremarkable. Postoperative changes with anterior fusion at C6-C7. Broad-based posterior disc bulge with mild facet arthropathy at C7-T1 flattens the ventral thecal sac without significant central canal or foraminal narrowing on the sagittal images alone. Indeterminate T2 hyperintense 5 mm lesion of the right hepatic lobe. Small hiatal hernia. Posterior marquise and screw fusion at T12-L1. The right pedicle screw at T12 is again noted to be in close proximity to the adjacent superior endplate of T12. There is moderate severe intervertebral disc space narrowing at the T11-T12 level with broad-based posterior disc osteophyte complex and moderate facet arthrosis with flattening of the ventral thecal sac. No significant central canal narrowing. There is moderate bilateral foraminal stenosis at this level. At T10-T11 there is posterior spondylitic spurring with broad-based posterior disc bulge and moderate facet arthrosis causing mild central canal and moderate bilateral foraminal narrowing. Small posterior disc bulging is seen at the T8-T9 and T9-T10 levels without significant central canal or foraminal narrowing identified. Mild to moderate bone marrow edema of the T11 vertebral body is likely reactive. No acute fracture or subluxation identified. IMPRESSION: 1. Posterior marquise and screw fusion at T12-L1. The right pedicle screw at T12 is again noted to be within close proximity to the adjacent superior endplate. 2. Moderate to severe intervertebral disc space narrowing at the T11-T12 level with broad-based posterior disc osteophyte complex and moderate facet arthropathy flattens the ventral thecal sac causing moderate bilateral foraminal narrowing without significant central canal stenosis. 3. Discogenic degenerative changes and facet arthropathy at T10-T11 as above cause mild central canal and moderate bilateral foraminal narrowing. The above report was generated using voice recognition software. It may contain grammatical, syntax or spelling errors. Electronically signed by: Clayton Dias M.D. 10/22/2017 12:58 PM Dictated Date/Time: 10/22/2017 9:34 AM
== END | disposition home or self-care (01) ==
LOC: C.MRI 08:14
PROVIDERS: ATTEND Orthopaedic Surgery Orthopaedic Surgery of the Spine
DX: M48.04 Spinal stenosis, thoracic region (principal); Z98.1 Arthrodesis status; M99.72 Connective tissue and disc stenosis of intervertebral foramina of thoracic region

== ENCOUNTER → 2017-11-19 | Outpatient (CLI) | payer OTHER ==
[~2017-11-19] MED LIST changes: +ACET-1693 PO; -CHOL20007 PO; +CYCL10TA6 PO; -DOXA4TAB2 PO; +DOXAZOSIN PO; +HYDR-4079 PO; -HYDR-4332 PO; -METO-649 PO; +METO200T32 PO; +NITROGLYCERIN SL; -NTRARSCL SL; -NURSING VERBAL MED ORDER ONE; +PROC1TAB5 PO; +RANI150T85 PO; -SUCR1TAB29 PO; -TYL325X PO; +VITAMIN D2 PO
== END | disposition home or self-care (01) ==
LOC: C.LABPBG 07:45
PROVIDERS: ATTEND Family Medicine
DX: I10 Essential (primary) hypertension (principal); E78.00 Pure hypercholesterolemia, unspecified; K21.0 Gastro-esophageal reflux disease with esophagitis

== ENCOUNTER 2017-11-22 11:26 | Inpatient (IN) | payer OTHER ==
[2017-11-11 12:53] VITALS: BMI 41.0
--- NOTE | 2017-11-11 13:42 | PAT Medication Instructions ---
Service Date Nov 11, 2017. Current Home Medication List Acetaminophen Tab (Tylenol), 650 MG PO PRN Aspirin (Aspirin Chewable), 81 MG PO HS Calcium Citrate-Vitamin D (Calcium Citrate + D3), 1 TAB PO BID Cetirizine Hcl (Zyrtec), 10 MG PO QAM Clopidogrel (Plavix), 75 MG PO QAM Coenzyme Q10 (Ubidecarenone) (Co Q 10), 200 MG PO QPM Cyanocobalamin (Vitamin B12), 500 MCG PO DAILY AT NOON Cyclobenzaprine Hcl (Flexeril), 10 MG PO TID Docusate Sodium (Docusate Sodium), 100 MG PO TID' Fluoxetine Hcl (Pmdd) (Fluoxetine), 1 CAP PO QPM Fluticasone Propionate (Nasal) (Flonase Allergy Relief), 1 SPRAY BHAVIK DAILY PRN for PRN Gabapentin (Neurontin), 300 MG PO BID Hydrochlorothiazide (Hctz), 50 MG PO QAM Hydrocodone/Acetaminophen 10MG/325MG ([place] 10MG/325MG), 1 TAB PO Q4H PRN for Pain Hyoscyamine Sulfate (Levsin), 0.125 MG PO TID Lansoprazole (Prevacid), 30 MG PO BID Metoprolol Succinate (Toprolxl (Toprol-Xl), 100 MG PO QAM Multivitamin (Multivitamin), 1 TAB PO QAM Potassium Chloride (K-Tab), 1 TAB PO BID Prochlorperazine Maleate (Compazine), 10 MG PO HS Ramipril (Ramipril), 1 CAP PO BID Ranitidine (Zantac), 150 MG PO QPM Temazepam (Restoril), 15 MG PO HS [Doxazosin], 1 MG PO HS [Livalo], 4 MG PO HS [Nitroglycerin], 1 SPRAY SL PRN [Vitamin D2], 1.25 MG PO WEEKLY Medication Instructions For Your Scheduled Surgery -Contact your bindery machine tender SOON POSSIBLE for instructions for: Clopidogrel (Plavix), 75 MG PO QAM -Continue as directed: [Nitroglycerin], 1 SPRAY SL PRN - Hold the following medications 2 weeks prior to surgery: Coenzyme Q10 (Ubidecarenone) (Co Q 10), 200 MG PO QPM - Hold the following medications the night before surgery: Ramipril (Ramipril), 1 CAP PO BID - Hold the following medications the morning of surgery: [Vitamin D2], 1.25 MG PO WEEKLY Calcium Citrate-Vitamin D (Calcium Citrate + D3), 1 TAB PO BID Cetirizine Hcl (Zyrtec), 10 MG PO QAM Cyclobenzaprine Hcl (Flexeril), 10 MG PO TID Docusate Sodium (Docusate Sodium), 100 MG PO TID' Hydrochlorothiazide (Hctz), 50 MG PO QAM Multivitamin (Multivitamin), 1 TAB PO QAM Ramipril (Ramipril), 1 CAP PO BID Potassium Chloride (K-Tab), 1 TAB PO BID Hyoscyamine Sulfate (Levsin), 0.125 MG PO TID - Take the following medications the morning of surgery with a sip of water: Acetaminophen Tab (Tylenol), 650 MG PO PRN (if needed, can be taken up to four hours before surgery) Fluticasone Propionate (Nasal) (Flonase Allergy Relief), 1 SPRAY BHAVIK DAILY PRN for PRN (if needed) Gabapentin (Neurontin), 300 MG PO BID Metoprolol Succinate (Toprolxl (Toprol-Xl), 100 MG PO QAM Lansoprazole (Prevacid), 30 MG PO BID Hydrocodone/Acetaminophen 10MG/325MG ([place] 10MG/325MG), 1 TAB PO Q4H PRN for Pain (if needed, can be taken up to four hours before surgery) - Take the following medications as scheduled the night before surgery: Acetaminophen Tab (Tylenol), 650 MG PO PRN (if needed) Aspirin (Aspirin Chewable), 81 MG PO HS Calcium Citrate-Vitamin D (Calcium Citrate + D3), 1 TAB PO BID Cyanocobalamin (Vitamin B12), 500 MCG PO DAILY AT NOON Cyclobenzaprine Hcl (Flexeril), 10 MG PO TID Docusate Sodium (Docusate Sodium), 100 MG PO TID' Fluoxetine Hcl (Pmdd) (Fluoxetine), 1 CAP PO QPM Fluticasone Propionate (Nasal) (Flonase Allergy Relief), 1 SPRAY BHAVIK DAILY PRN for PRN (if needed) Gabapentin (Neurontin), 300 MG PO BID Lansoprazole (Prevacid), 30 MG PO BID Ranitidine (Zantac), 150 MG PO QPM Temazepam (Restoril), 15 MG PO HS [Doxazosin], 1 MG PO HS [Livalo], 4 MG PO HS Potassium Chloride (K-Tab), 1 TAB PO BID Prochlorperazine Maleate (Compazine), 10 MG PO HS Hyoscyamine Sulfate (Levsin), 0.125 MG PO TID If you have any questions please call us at [phone] or [phone] or [phone]
--- NOTE | 2017-11-11 14:22 | DIAGNOSTIC IMAGING REPORT ---
TWO VIEW CHEST CLINICAL HISTORY: Preoperative examination. FINDINGS: PA and lateral chest radiographs are compared to study dated 08/27/2015 and correlated with chest CT dated 09/07/2016. A 2-lead cardiac pacemaker is unchanged in position and partially obscures the left mid chest. The heart is enlarged and there is atherosclerotic calcification of the thoracic aorta. The pulmonary vasculature is noncongested. There are low lung volumes with bibasilar atelectasis. No airspace consolidation or pleural effusion is identified. There is no pneumothorax. The skeletal structures are osteopenic. Degenerative changes noted throughout the imaged spine. Fusion hardware is seen in the lower cervical spine and in the lumbar spine. Cholecystectomy clips are noted. IMPRESSION: 1. Cardiomegaly and cardiac pacemaker. There is no radiographic evidence of congestive failure. 2. Low lung volumes with bibasilar atelectasis. Electronically signed by: Viraj Palacios M.D. 11/11/2017 2:21 PM Dictated Date/Time: 11/11/2017 2:20 PM
[2017-11-11 14:23] LABS: BASO % 0.3 %; BASO ABS # 0.02 K/uL (0-0.2); EOS % 4.1 %; EOS ABS # 0.27 K/uL (0-0.5); HEMATOCRIT 42.1 % (42-52); HEMOGLOBIN 14.6 g/dL (14.0-18.0); IG# 0.01 K/uL (0.00-0.02); LYMPH ABS # 1.45 K/uL (1.2-3.4); MEAN CORPUSCULAR HEMOGLOBIN 30.9 pg (25-34); MEAN CORPUSCULAR HGB CONC 34.7 g/dl (32-36); MEAN PLATELET VOLUME 9.9 fL (7.4-10.4); MONO ABS # 0.79 K/uL (0.11-0.59); NEUT % 61.4 %; NEUT ABS # 4.06 K/uL (1.4-6.5); PLATELET COUNT 200 K/uL (130-400); RED CELL DISTRIBUTION WIDTH CV 13.7 % (11.5-14.5)
[2017-11-11 14:33] LABS: PTT PATIENT 28.2 SECONDS (21.0-31.0)
[2017-11-11 16:34] LABS: CALCIUM 8.6 mg/dl (8.5-10.1); CREATININE 0.97 mg/dl (0.60-1.40); POTASSIUM 3.1 mmol/L (3.5-5.1)
[~2017-11-22] VITALS: Ht 172.7 cm; Wt 123.6 kg
[2017-11-22] VITALS (13 sets, daily range): BP systolic 130–153; BP diastolic 81–98; PULSE 70–72; TEMP 35.4–36.7; O2SAT 94–97; Ht 172.7 cm; Wt 123.6 kg
[~2017-11-22 11:26] MED LIST changes: +ATROPINE SULFATE 0.1 MG/ML 5ML SYR IV PRN; +CEFAZOLIN 3000MG IV PUSH 15 ML IV SCH; +EpHEDrine SULFATE INJ 50 MG/ML AMP IV PRN; +HYDROmorphone INJ 1 MG/ML SYR IV PRN; +LACTATED RINGER'S 1000ML 1,000 ML IV SCH; +ONDANSETRON INJ 2 MG/ML 2 ML VIAL IV PRN
[2017-11-22] MEDS ORDERED: MIDAZOLAM HCL 1 MG/ML 2ML VIAL ONE (13:20)
[2017-11-22] MEDS ORDERED: FENTANYL CITRATE INJ 50 MCG/1 ML 2 ML VIAL ONE ×3 (13:21→16:54)
--- NOTE | 2017-11-22 13:36 | History and Physical ---
History & Physical Date Nov 22, 2017. Chief Complaint Back pain, History of Present Illness The patient is a 62 year old male with complaints of back pain Past Medical/Surgical History Medical Problems: (1) A-fib (2) AAA (abdominal aortic aneurysm) (3) ATRIAL FIBRILLATION (4) CARDIAC PACEMAKER IN SITU (5) CORONARY ATHEROSCLEROSIS OF [place] CORONARY VESSEL (6) ESOPHAGEAL STRICTURE (7) ESOPHAGUS DISORDERS NEC (8) Heart disease (9) HYPERLIPIDEMIA NEC/NOS (10) Myocardial infarction (11) OBESITY, NOS (12) OLD MYOCARDIAL INFARCT (13) Post percutaneous transluminal coronary angioplasty Surgical Problems: (1) Stented coronary artery Additional History Hepatic Disease: No Endocrine Disorder: No Kidney Disease: No Hypertension: Yes Heart Disease: No Bleeding Tendencies: No Infectious Diseases: No Allergies Coded Allergies: Loratadine (Verified Allergy, Severe, BREATHING DIFFICULTY, 11/11/17) Shellfish (Verified Allergy, Severe, throat gets scratchy, 11/11/17) Diphenhydramine (Verified Allergy, Intermediate, HIVES, 11/11/17) HIVES Macrolides (Verified Allergy, Intermediate, E-MYCIN=HIVES; "MYCINS"-- JAUNDICE, 11/11/17) Fish Allergy (Verified Allergy, Mild, THROAT SWELLS, 11/11/17) Rofecoxib (Verified Adverse Reaction, Severe, CARDIAC SX, 11/11/17) Oxycodone (Verified Adverse Reaction, Unknown, TERRIBLE DREAMS, DISORIENTATION, 11/22/17) Home Medications Scheduled Acetaminophen Tab (Tylenol), 650 MG PO PRN Calcium Citrate-Vitamin D (Calcium Citrate + D3), 1 TAB PO BID Cetirizine Hcl (Zyrtec), 10 MG PO QAM Clopidogrel (Plavix), 75 MG PO QAM Coenzyme Q10 (Ubidecarenone) (Co Q 10), 200 MG PO QPM Cyanocobalamin (Vitamin B12), 500 MCG PO DAILY AT NOON Cyclobenzaprine Hcl (Flexeril), 10 MG PO TID Docusate Sodium (Docusate Sodium), 100 MG PO TID' Fluoxetine Hcl (Pmdd) (Fluoxetine), 1 CAP PO QPM Gabapentin (Neurontin), 300 MG PO BID Hydrochlorothiazide (Hctz), 50 MG PO QAM Hyoscyamine Sulfate (Levsin), 0.125 MG PO TID Lansoprazole (Prevacid), 30 MG PO BID Metoprolol Succinate (Toprolxl (Toprol-Xl), 100 MG PO QAM Multivitamin (Multivitamin), 1 TAB PO QAM Potassium Chloride (K-Tab), 1 TAB PO BID Prochlorperazine Maleate (Compazine), 10 MG PO HS Ramipril (Ramipril), 1 CAP PO BID Ranitidine (Zantac), 150 MG PO QPM Temazepam (Restoril), 15 MG PO HS [Doxazosin], 1 MG PO HS [Livalo], 4 MG PO HS [Nitroglycerin], 1 SPRAY SL PRN [Vitamin D2], 1.25 MG PO WEEKLY Scheduled PRN Fluticasone Propionate (Nasal) (Flonase Allergy Relief), 1 SPRAY BHAVIK DAILY PRN for PRN Hydrocodone/Acetaminophen 10MG/325MG ([place] 10MG/325MG), 1 TAB PO Q4H PRN for Pain Physical Examination Skin: warm/dry, no rash Eyes: normal inspection, EOMI, sclerae normal ENT: normal ENT inspection, pharynx normal Head: normocephalic, atraumatic Neck: supple, no adenopathy, trachea midline Respiratory/Chest: lungs clear, normal breath sounds, no respiratory distress Cardiovascular: regular rate, rhythm, no edema, no murmur Abdomen / GI: normal bowel sounds, non tender Back: normal inspection Extremities: normal inspection, normal range of motion Neurologic/Psych: no motor/sensory deficits, alert, normal reflexes, oriented x 3 Diagnosis Thoracic stenosis Plan of Treatment T9 to T12 decompression and fusion
[2017-11-22] MEDS ORDERED: BUPIVACAINE/EPINEPHRINE 0.5% MPF 1:200,000 30 ML VIAL ONE (14:04)
[2017-11-22] MEDS ORDERED: BACITRACIN 50000 UNIT VIAL ONE (14:04)
[2017-11-22] MEDS ORDERED: HYDROmorphone INJ 2 MG/ML SYR/VIAL ONE (14:53)
[2017-11-22] MEDS ORDERED: NEOSTIGMINE METHYLSULFATE 1 MG/ML 10ML VIAL ONE (15:05)
[2017-11-22] MEDS ORDERED: ONDANSETRON INJ 2 MG/ML 2 ML VIAL ONE (15:05)
[2017-11-22] MEDS ORDERED: LIDOCAINE HCL 2% 2 ML VIAL (20MG/ML) ONE (15:05)
[2017-11-22] MEDS ORDERED: DEXAMETHASONE SOD INJ 4 MG/ML VIAL ONE (15:05)
[2017-11-22] MEDS ORDERED: LABETALOL HCL IV 5 MG/ML 20ML IV ONE (15:05)
[2017-11-22] MEDS ORDERED: PROPOFOL IV EMULSION 10 MG/ML 20 ML VIAL IV ONE (15:05)
[2017-11-22] MEDS ORDERED: GLYCOPYRROLATE INJ 0.2 MG/ML VIAL ONE (15:05)
[2017-11-22] MEDS ORDERED: ROCURONIUM BROMIDE 10 MG/ML 5 ML VIAL IV ONE (15:05)
[2017-11-22] MEDS ORDERED: ALBUMIN HUMAN 5% 12.5 GM/250 ML VIAL IV ONE (16:14)
[2017-11-22] MEDS ORDERED: FLOSEAL HEMOSTATIC MATRIX 10ML TOP ONE (16:30)
[2017-11-22] MEDS ORDERED: SODIUM CHLORIDE 0.9% 1000ML 1,000 ML IV SCH (16:36)
--- NOTE | 2017-11-22 16:36 | [facility] Operative Report ---
Operative Report Operative Date Nov 22, 2017. Pre-Operative Diagnosis Thoracic stenosis T9-T12 Post-Operative Diagnosis Same as preoperative diagnosis Procedure(s) Performed #1 removal instrumentation T12. 2 extrusion of fusion T12-L1. 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 #4 posterior spinal fusion T9-T10 T11-T12. #5 this posterior segment instrumentation T9 T10 T11. #6 number effusion T 11 T12. #7 plates of the cage 8 x 22 mm T11 12. #8 placement of locally harvested morcellized autograft in the posterior gutters. #Physician in physical sponge and Master graft the posterior gutters and osteotome bone graft in the interbody space. Surgeon Dr. Almaraz Mid Level Practitioner Surgeon(s) Tatyana LOPEZ Estimated Blood Loss 400ml Findings Severe thoracic spinal stenosis with instability Specimens a. explanted hardware t12 Description of Procedure Patient was met with preoperatively case discussed all questions addressed. After informed consent obtained patient was taken to the operative suite and underwent intubation please temporal position injection table on top of the Montez frame. All bony prominences were well-padded I suspected to ensure no external pressure placed upon them. This point the lumbar spine is prepped and draped in the normal sterile fashion. Sharp dissection with the assistance of Bovie cautery was performed down to and exposing the lamina and transverse processes of T9 T10 T11 needs rotation at T12-L1. I then proceeded to remove the pedicle screws at T12 explained fusion mass at T12-L1 noted to be intact. Then performed a complete laminectomy of T11 and T 10 from caudal to cephalad fashion dressing obvious facet hypertrophy instability and stenosis. Pedicle screws were then placed and T9 T10 T11 bilaterally with assistance of fluoroscopy. I then performed a facetectomy of T 1112 and through a transforaminal approach on the right performed a complete discectomy of T 1112 turning the endplates to subcortical bleeding bone. An 8 x 22 mm peek cage filled with osteoporotic bone graft was inserted. Process rods were placed and connected to the existing marquise with barrel connectors. All apparatus was locked in position. The incision using copious irrigated and bone graft was placed from T9 to L1 bilaterally. A 15 round ROME drain inserted. Incision closed with 1 Vicryl in the fascia tubercle substantially 4-0 Monocryl for fashion closure Steri-Strips sterile dressing was placed. Patient was awakened taken to PACU in stable condition. Please note Elham Choudhary was present throughout the entire procedure involved in patient positioning complex portions of the surgery and for asking closure. I attest to the content of the Intraoperative Record and any orders documented therein. Any exceptions are noted below.
--- NOTE | 2017-11-22 16:44 | DIAGNOSTIC IMAGING REPORT ---
THORACIC SPINE 2 VIEW HISTORY: 62 years-old Male T9-T12 status post decompression with fusion at T9-T12 COMPARISON: Thoracic spine MR 10/22/2017 TECHNIQUE: 3 spot fluoroscopic images of the thoracic spine were obtained utilizing 35.2 seconds fluoroscopy time FINDINGS: Status post decompression posteriorly with posterior marquise and screw fusion hardware within the region of the thoracic spine with exact levels unknown secondary to small [id number]. Discectomy changes are seen at L1 level. Alignment appears satisfactory. IMPRESSION: Fluoroscopic assistance as above. Please see operative report for further details. The above report was generated using voice recognition software. It may contain grammatical, syntax or spelling errors. Electronically signed by: Clayton Dias M.D. 11/22/2017 4:43 PM Dictated Date/Time: 11/22/2017 4:41 PM
[2017-11-22] MEDS ORDERED: NALOXONE HCL 0.4 MG/1 ML VIAL/CARP IV PRN ×2 (16:45)
[2017-11-22] MEDS ORDERED: LORAZEPAM 0.5 MG TAB PO PRN (16:45)
[2017-11-22] MEDS ORDERED: DO NOT ADMINISTER FLU VACCINE PRN (16:45)
[2017-11-22] MEDS ORDERED: METOCLOPRAMIDE HCL INJ 5 MG/ML 2 ML VIAL IV PRN (16:45)
[2017-11-22] MEDS ORDERED: ALUMINUM/MAGNESIUM SUSP 30 ML UDC PO PRN (16:45)
[2017-11-22] MEDS ORDERED: hydrOXYzine HCL 25 MG TAB PO PRN (16:45)
[2017-11-22] MEDS ORDERED: FLUTICASONE PROPIONATE NA SPR 16 GM BTL NAE PRN (16:45)
[2017-11-22] MEDS ORDERED: BISACODYL 10 MG SUPP PR PRN (16:45)
[2017-11-22] MEDS ORDERED: MAGNESIUM HYDROXIDE SUSP 30 ML UDC PO PRN (16:45)
[2017-11-22] MEDS ORDERED: DO NOT ADMINISTER PNEUMOCOCCAL VACCINE PRN (16:45)
[2017-11-22] MEDS ORDERED: LORAZEPAM INJ 0.5 MG in SYRINGE 0 ML IV PRN (16:45)
[2017-11-22] MEDS ORDERED: ACETAMINOPHEN 500 MG TAB PO PRN (16:45)
[2017-11-22] MEDS ORDERED: ACETAMINOPHEN IV 100 ML IV PRN (16:45)
[2017-11-22] MEDS ORDERED: PROMETHAZINE HCL INJ 12.5 MG in SODIUM CHLORIDE 0.9% 50ML 50 ML IV PRN (16:45)
[2017-11-22] MEDS ORDERED: HYDROmorphone HCL 0.5MG/ML 50 ML CASSETTE IV PRN (16:45)
[2017-11-22] MEDS ORDERED: HYDROmorphone INJ 1 MG/ML SYR ONE (16:54)
[2017-11-22] MEDS ORDERED: HYDROmorphone HCL 0.5MG/ML 50 ML CASSETTE ONE (17:01)
[2017-11-22] MEDS: FENTANYL CITRATE INJ 50 MCG/1 ML 2 ML VIAL IV PRN ×3 (17:34→17:52)
[2017-11-22] MEDS ORDERED: DEXTROSE 5% IV SCH ×2 (17:45→18:30)
[2017-11-22] MEDS ORDERED: METHYLPREDNISOLONE IV SCH ×2 (17:45→18:30)
--- NOTE | 2017-11-22 18:26 | Anesthesiology Progress Note ---
Anesthesia Post Op Note Date & Time Nov 22, 2017 at 18:14 Vital Signs Pain Intensity: 5 Vital Signs Past 12 Hours Date Time Temp Pulse Resp B/P (MAP) Pulse Ox O2 Delivery O2 Flow Rate FiO2 11/22/17 18:00 36.0 70 11 143/84 95 Nasal Cannula 4 11/22/17 16:53 36.4 73 16 137/92 100 Oxymask 10 11/22/17 12:09 36.7 70 18 146/98 97 Room Air Notes Mental Status: alert / awake / arousable, participated in evaluation Pt Amnestic to Procedure: Yes Nausea / Vomiting: adequately controlled Pain: adequately controlled Airway Patency, RR, SpO2: stable & adequate BP & HR: stable & adequate Hydration State: stable & adequate Anesthetic Complications: no major complications apparent On emergence, patient had significant pain and was given a dose of dilaudid on arrival in pacu. this improved his pain significantly but it was noted that he had no voluntary movement in his lower extremities and no sensation noted below aproximately the inguinal ligament bilaterally. Dr Almaraz was at bedside and examined the patient extensively. During the case, adequate hemodynamics were maintained with MAP>80 throughout for adequate spinal cord perfusion by arterial line. Blood loss was reasonable for the procedure. He received adequate fluid volume and did have urine output throughout the case. No pressors were required for the case to maintain adequate MAP. Surgical positioning was carefully performed by both surgeon and anesthesia team. Intraoperative neuromonitoring data was not available. Surgeon did speak to the hospitalist and would like patient to be monitored on med-surgical floor. I see no acute medical issues that need critical care management in this patient. I spoke with Dr Almaraz who will start the patient on a steroid protocol.
--- NOTE | 2017-11-22 18:58 | Medical Consult ---
Consultation Date of Consultation: Nov 22, 2017. Attending Physician: Barry Almaraz D.O. Reason for Consultation: Medical Management History of Present Illness This is a 62 yo M with PMHx of CAD s/p multiple cardiac stents ( last in LAD x 2 at [facility]), parosysmal afib, smyptomatic bradycardia s/p dual chamber pacemaker insertion, HTN, HLD, DM II, DENICE, GERD, morbidy obesity, who is now s/p T9-T12 decompression/fusion, T12 hardware removal, interbody fusion at T11-T12 by Dr. Armstrong on 11/22/17. The patient lacked sensation below groin s/ p surgical procedure and was started on Solumedrol 30 mg/kg as a loading dose followed by a solumedrol infusion of 5.4 mg/kg/ml x 23 hours. The patients Lili, is present at bedside. The patient is very somnolent at the time of my exam, but easily awoken with verbal stimuli. He still has no sensation to light touch and is unable to move his lower extremities bilaterally. He is feeling somewhat nauseous at this point. A dilaudid PLATE DRYING MACHINE TENDER is in place without basal rate, but has 0.25 mg Q10 min and he has pushed it only a few times since being on the medical floor. He is having some back spasms at present but is relieved with minimal movement from side to side in the bed. He denies any other acute complaints. Past Medical/Surgical History Medical Problems: (1) A-fib (2) AAA (abdominal aortic aneurysm) (3) ATRIAL FIBRILLATION (4) CARDIAC PACEMAKER IN SITU (5) CORONARY ATHEROSCLEROSIS OF [place] CORONARY VESSEL (6) ESOPHAGEAL STRICTURE (7) ESOPHAGUS DISORDERS NEC (8) Heart disease (9) HYPERLIPIDEMIA NEC/NOS (10) Myocardial infarction (11) OBESITY, NOS (12) OLD MYOCARDIAL INFARCT (13) Post percutaneous transluminal coronary angioplasty (14) Thoracic spinal stenosis Surgical Problems: (1) Stented coronary artery Family History Cancer Diabetes mellitus Heart disease Hypertension Kidney disease Kidney stones Lung disease Social History Smoking Status: Former Smoker Drug Use: none Marital Status: Housing Status: lives with family Occupation Status: employed Allergies Coded Allergies: Loratadine (Verified Allergy, Severe, BREATHING DIFFICULTY, 11/11/17) Shellfish (Verified Allergy, Severe, throat gets scratchy, 11/11/17) Diphenhydramine (Verified Allergy, Intermediate, HIVES, 11/11/17) HIVES Macrolides (Verified Allergy, Intermediate, E-MYCIN=HIVES; "MYCINS"-- JAUNDICE, 11/11/17) Fish Allergy (Verified Allergy, Mild, THROAT SWELLS, 11/11/17) Rofecoxib (Verified Adverse Reaction, Severe, CARDIAC SX, 11/11/17) Oxycodone (Verified Adverse Reaction, Unknown, TERRIBLE DREAMS, DISORIENTATION, 11/22/17) Current Inpatient Medications Current Inpatient Medications Medications (Trade) Dose Ordered Sig/Berta Route Start Time Stop Time Status Last Admin Dose Admin Lactated Ringer's 1,000 ml @ 15 mls/hr Q24H IV 11/22/17 06:00 11/23/17 05:59 Fentanyl Citrate (Fentanyl Inj) 25 mcg Q5M PRN IV 11/22/17 09:30 11/22/17 19:00 11/22/17 17:52 25 MCG Hydromorphone HCl (Dilaudid Inj) 0.5 mg Q5M PRN IV 11/22/17 09:30 11/22/17 19:00 Ondansetron HCl (Zofran Inj) 4 mg ONE PRN IV 11/22/17 09:30 11/22/17 19:00 Ephedrine Sulfate (EpHEDrine SULFATE INJ) 5 mg Q5M PRN IV 11/22/17 09:30 11/22/17 19:00 Atropine Sulfate (Atropine Sulfate 0.1mg/ml Inj) 0.5 mg Q1M PRN IV 11/22/17 09:30 11/22/17 19:00 Dexamethasone Sodium Phosphate 6 mg/Syringe 1.5 ml @ 1 mls/min Q8H IV 11/22/17 16:45 11/23/17 08:47 UNV Promethazine HCl 12.5 mg/Sodium Chloride 50.5 ml @ 202 mls/hr Q6H PRN IV 11/22/17 16:45 12/22/17 16:44 Ondansetron HCl (Zofran Inj) 4 mg Q6H PRN IV 11/22/17 16:45 12/22/17 16:44 Metoclopramide HCl (Reglan Inj) 10 mg Q6H PRN IV 11/22/17 16:45 12/22/17 16:44 Lorazepam (Ativan Tab) 0.5 mg Q8H PRN PO 11/22/17 16:45 12/22/17 16:44 Lorazepam 0.5 mg/ Syringe 0.25 ml @ 1 mls/min Q8H PRN IV 11/22/17 16:45 12/22/17 16:44 Pneumococcal Polysaccharide Vaccine 1 ea PRN PRN N/A 11/22/17 16:45 12/22/17 16:44 Influenza Virus Vacc Triv Types A&B 1 ea PRN PRN N/A 11/22/17 16:45 12/22/17 16:44 Polyethylene (Miralax Powder Packet) 17 gm Q6 PO 11/24/17 06:00 12/24/17 05:59 UNV Bisacodyl (Dulcolax Supp) 10 mg DAILY PRN OR 11/22/17 16:45 12/22/17 16:44 Magnesium Hydroxide (Milk Of Magnesia Susp) 30 ml DAILY PRN PO 11/22/17 16:45 12/22/17 16:44 Hydromorphone HCl (Dilaudid Inj) 0.5-1mg prn moder... Q3H PRN IV 11/22/17 16:45 12/06/17 16:44 UNV Cefazolin Sodium 3000 mg/Dextrose 65 ml @ 100 mls/hr Q8H IV 11/22/17 16:45 11/23/17 01:23 UNV Sodium Chloride 1,000 ml @ 150 mls/hr Q6H40M IV 11/22/17 16:36 12/22/17 16:35 UNV Acetaminophen (Tylenol Tab) 1,000 mg Q8H PRN PO 11/22/17 16:45 12/22/17 16:44 Acetaminophen 100 ml @ 400 mls/hr Q8H PRN IV 11/22/17 16:45 12/22/17 16:44 Naloxone HCl (Narcan Inj) 0.1 mg Q5M PRN IV 11/22/17 16:45 12/22/17 16:44 Senna/Docusate Sodium (Senokot S Tab) 2 tab HS PO 11/22/17 21:00 12/22/17 20:59 UNV Sodium Biphosphate/ Sodium Phosphate (Fleet Enema) 132 ml ONE PRN OR 11/22/17 16:45 12/22/17 16:44 Hydroxyzine HCl (Vistaril Tab) 25 mg Q8H PRN PO 11/22/17 16:45 12/22/17 16:44 Al Hydroxide/Mg Hydroxide (Maalox Susp) 30 ml Q6H PRN PO 11/22/17 16:45 12/22/17 16:44 Famotidine (Pepcid Tab) 20 mg Q12 PRN PO 11/22/17 16:45 12/22/17 16:44 Miscellaneous Information (Discontinue PLATE DRYING MACHINE TENDER) 1 ea TODAY@0600 N/A 11/23/17 06:00 11/23/17 06:01 Naloxone HCl (Narcan Inj) 0.1 mg Q5M PRN IV 11/22/17 16:45 11/23/17 06:00 Hydromorphone HCl (Dilaudid Dairy Manufacturing Technologist) 25 mg PRN PRN IV 11/22/17 16:45 11/23/17 06:00 Sodium Chloride 1,000 ml @ 15 mls/hr Q24H IV 11/22/17 16:36 11/23/17 06:00 Cetirizine HCl (zyrTEC TAB) 10 mg QAM PO 11/23/17 09:00 12/23/17 08:59 UNV Cyclobenzaprine HCl (Flexeril Tab) 10 mg TID PO 11/22/17 21:00 12/22/17 20:59 UNV Fluticasone Propionate (Flonase Nasal Lander) 1 sprays DAILY PRN BHAVIK 11/22/17 16:45 12/22/17 16:44 Gabapentin (Neurontin Cap) 300 mg BID PO 11/22/17 21:00 12/22/17 20:59 UNV Hydrochlorothiazide (Hydrochlorothiazide Tab) 50 mg QAM PO 11/23/17 09:00 12/23/17 08:59 UNV Acetaminophen/ Hydrocodone Bitart ([place] 10/325 Tab) 1 tab Q4H PRN PO 11/22/17 16:45 12/06/17 16:44 UNV Hyoscyamine Sulfate (Levsin Tab) 0.125 mg TID PO 11/22/17 21:00 12/22/17 20:59 UNV Metoprolol Succinate (Toprol Xl Tab) 100 mg QAM PO 11/23/17 09:00 12/23/17 08:59 UNV Prochlorperazine Maleate (Compazine Tab) 10 mg HS PO 11/22/17 21:00 12/22/17 20:59 UNV Ranitidine HCl (zANTac TAB) 150 mg QPM PO 11/22/17 21:00 12/22/17 20:59 UNV Temazepam (Restoril Cap) 15 mg HS PO 11/22/17 21:00 12/22/17 20:59 UNV Non-Formulary Medication (Ramipril ) 1 cap BID PO 11/22/17 21:00 12/22/17 20:59 UNV Non-Formulary Medication ([Doxazosin] ) 1 mg HS PO 11/22/17 21:00 12/22/17 20:59 UNV Non-Formulary Medication ([Livalo] ) 4 mg HS PO 11/22/17 21:00 12/22/17 20:59 UNV Methylprednisolone Sodium Succinate 3700 mg/Dextrose 309.2 ml @ 618.4 mls/ hr TODAY@1745 IV 11/22/17 17:45 11/22/17 23:59 11/22/17 17:55 618.4 MLS/HR Methylprednisolone Sodium Succinate 85968 mg/Dextrose 1,245.6 ml @ 54.157 mls/hr TODAY@1830 IV 11/22/17 18:30 11/23/17 17:29 Review of Systems Constitutional: No fever, sweats or chills, + fatigue Eyes: No diplopia, no worsening or blurred vision ENT: normal hearing, no trouble swallowing Respiratory: No cough, sputum, dyspnea at rest or on exertion Cardiovascular: No chest pain, tightness or palpitations Abdomen: No pain, nausea, vomiting, diarrhea or constipation Back: lower back pain Neurologic: + weakness and numbness/tingling, or balance problems Psychiatric: No anxiety or depression Skin: No rash or itch Physical Exam Date Time Temp Pulse Resp B/P (MAP) Pulse Ox O2 Delivery O2 Flow Rate FiO2 11/22/17 18:28 72 10 11/22/17 18:28 73 10 97 1/22/18 18:26 129/69 18 18:23 70 19 96 18 18:23 70 19 11/22/17 18:21 139/69 11/22/17 18:20 70 20 139/69 97 Nasal Cannula 4 11/22/17 18:18 72 12 18 18:18 73 12 98 11/22/17 18:16 138/73 11/22/17 18:13 70 10 11/22/17 18:13 70 10 96 11/22/17 18:11 140/77 11/22/17 18:08 75 12 11/22/17 18:08 75 12 98 11/22/17 18:06 145/82 11/22/17 18:03 70 12 95 11/22/17 18:03 70 12 11/22/17 18:01 143/84 11/22/17 18:00 36.0 70 11 143/84 95 Nasal Cannula 4 11/22/17 17:58 70 12 94 11/22/17 17:58 70 12 11/22/17 17:56 146/85 11/22/17 17:53 70 16 92 11/22/17 17:53 70 16 11/22/17 17:51 149/80 11/22/17 17:48 70 12 11/22/17 17:48 70 12 93 11/22/17 17:46 157/90 11/22/17 17:43 70 21 11/22/17 17:43 70 21 97 11/22/17 17:42 153/78 11/22/17 17:38 70 17 11/22/17 17:38 70 17 97 11/22/17 17:37 154/84 18 17:33 70 10 18 17:33 71 10 100 18 17:31 151/106 18 17:28 70 24 98 18 17:28 69 24 18 17:26 171/96 11/22/17 17:23 70 14 18 17:23 70 14 98 11/22/17 17:21 152/108 11/22/17 17:20 177/98 11/22/17 17:18 70 10 11/22/17 17:18 70 10 99 11/22/17 17:16 147/103 11/22/17 17:13 70 19 11/22/17 17:13 70 19 173/84 99 11/22/17 17:11 168/108 11/22/17 17:08 73 14 11/22/17 17:08 73 14 152/100 99 11/22/17 17:06 143/109 11/22/17 17:03 70 1 11/22/17 17:03 70 10 99 11/22/17 17:01 143/75 11/22/17 16:58 72 18 11/22/17 16:58 71 18 99 11/22/17 16:56 140/84 11/22/17 16:53 75 18 137/92 100 11/22/17 16:53 36.4 73 16 137/92 100 Oxymask 10 11/22/17 16:53 75 18 11/22/17 12:09 36.7 70 18 146/98 97 Room Air General: + Somnolent, no apparent distress, awakens easily to verbal stimuli, obese Head: Normocephalic, atraumatic ENT: PERRL, EOMI, no pharyngeal exudate, mucous membranes moist Chest: on 4 L via NC, Clear to auscultation, no adventitious breath sounds Cardiac: Regular rate and rhythm, + systolic murmur grade III/, no JVD, normal peripheral pulses, good capillary refill Abdominal: NABS x 4 quadrants, soft, nontender to palpation, no rebound, guarding or tenderness Extremities: Normal inspection, no peripheral edema or erythema, calfs nontender to palpation Psych: Normal mood and affect Neuro: AAO x 3, strength absent in lower extremities bilaterally, absent sensation to light touch in bilateral lower extremity, no motor deficits, speech is clear Assessment & Plan This is a 62 yo M with PMHx of CAD s/p multiple cardiac stents ( last in LAD x 2 at [facility]), parosysmal afib, smyptomatic bradycardia s/p dual chamber pacemaker insertion, HTN, HLD, DM II, DENICE, GERD, morbid obesity, who is now s/p T9-T12 decompression/fusion, T12 hardware removal, interbody fusion at T11-T12 by Dr. Armstrong on 11/22/17. The patient lacked sensation below groin s/p surgical procedure and was started on Solumedrol protocol. S/p T9 - T12 decompression fusion, T12 hardware removal - Pain management with dilaudid take away worker, no muscle relaxer ordered at this time, pt does use this at home, consider adding if worsening muscle spasm but would wait at this time due to somnolence.. - Continue solumedrol infusion per primary team: Solumedrol 30 mg/kg as a loading dose followed by a solumedrol infusion of 5.4 mg/kg/ml x 23 hours. - Frequent neurochecks, recommend Q1H until resolvement of sx - Bowel regimen per primary team HTN HLD CAD s/p multiple stents Paroxsysmal afib - Continue on FINANCIAL DEALERS meds: metoprolol succ 100 mg QAM. Pt is not on a statin therapy. No blood thinners. DENICE - Pt is supposed to wear CPAP at home but does not tolerate it- therefore refusing to wear this currently. Maintain on 4 L O2 via NC for now. DM II - Not on home insulin or oral medications - Check A1C with am labs - ISS with accuchecks while on solumedrol infusion GERD - Cont ranitidine - patient likely the patient frequently wakes up with Altace and mouth, and vomits due to GERD - monitor. DVT ppx: no chemical anticoagulation, nonambulatory at this point, monitor closely. CODE STATU: Full code Disposition: From home, lives with , KAYLEE to assist with dc planning, per primary team Reviewed: Pt Seen/Exam by Me History Pt has been a bit groggy s/p anesthesia. Tolerating PO without issue but has not had much given grogginess. Denies chest pain, SOB. Has no sensation or motor function of LE. Agree with HPI/ROS as noted by PA. General Appearance: WD/WN, no apparent distress Respiratory: normal breath sounds, no respiratory distress Cardiovascular: normal peripheral pulses, regular rate, rhythm Gastrointestinal: non tender, soft Extremities: non-tender, no pedal edema Neurologic/Psychiatric: alert, other (answers all questions but is a bit slow to respond) Skin Characteristics: normal color, warm/dry Assessment/Plan Agree with plan as outlined above Pt is s/p ortho surgery and was found to have no sensation or motor use of his LE post-op. Has been started on high dose steroid protocol per ortho, they will manage this Otherwise reported as uncomplicated OR course, uncertain reasoning for paralysis Borderline DM, monitor with steroids Untx DENICE
[2017-11-22] MEDS ORDERED: GLUCOSE 40% GEL 15 GM TUBE PO PRN (19:30)
[2017-11-22] MEDS ORDERED: GLUCAGON FOR INJ 1 MG VIAL SQ PRN (19:30)
[2017-11-22] MEDS ORDERED: GLUCOSE 10 TABS/TUBE PO PRN (19:30)
[2017-11-22] MEDS ORDERED: DEXTROSE 50% 50 ML SYR IV PRN (19:30)
[2017-11-22] MEDS: ONDANSETRON INJ 2 MG/ML 2 ML VIAL IV PRN (19:44)
[2017-11-22] MEDS: SODIUM CHLORIDE 0.9% 1000ML 1,000 ML IV SCH (19:53)
[2017-11-22] MEDS ORDERED: POTASSIUM CHLORIDE 20 MEQ TABCR PO STA (20:15)
--- NOTE | 2017-11-22 20:19 | Progress Note ---
Progress Note Date of Service Nov 22, 2017. Progress Note low temp following surgery, will plan for shanel hugger x 2 hours and reassess need to continue, hemodynamically stable otherwise hypokalemia- 40 meq PO kcl
[2017-11-22] MEDS: TEMAZEPAM 15 MG CAP PO SCH (21:00)
[2017-11-22] MEDS: CYCLOBENZAPRINE HCL 10 MG TAB PO SCH (21:00)
[2017-11-22] MEDS: INSULIN ASPART 100 UNITS/ML 3 ML PEN SC SCH (21:00)
[2017-11-22] MEDS: RANITIDINE HCL 150 MG TAB PO SCH (21:44)
[2017-11-22] MEDS: DOCUSATE SODIUM/SENNA 50/8.6MG TAB PO SCH (21:44)
[2017-11-22] MEDS: GABAPENTIN 300 MG CAP PO SCH (21:44)
[2017-11-22] MEDS: CEFAZOLIN IV 3,000 MG in SYRINGE 0 ML IV SCH (21:45)
[2017-11-22] MEDS: PROCHLORPERAZINE MALEATE 10 MG TAB PO SCH (21:45)
[2017-11-22] MEDS: HYOSCYAMINE SULFATE 0.125 MG SL TAB PO SCH (21:45)
[2017-11-22] MEDS: DOXAZosin TAB 1 MG TAB PO SCH (21:45)
[2017-11-22] MEDS: ENALAPRIL MALEATE 10 MG TAB PO SCH (21:47)
[2017-11-22 23:04] LABS: HEMATOCRIT 38.3 % (42-52); HEMOGLOBIN 13.1 g/dL (14.0-18.0); IG# 0.03 K/uL (0.00-0.02); LYMPH % 7.1 %; LYMPH ABS # 0.65 K/uL (1.2-3.4); MEAN CELL VOLUME 88.7 fL (80-100); MEAN CORPUSCULAR HEMOGLOBIN 30.3 pg (25-34); MEAN PLATELET VOLUME 9.8 fL (7.4-10.4); MONO % 0.7 %; MONO ABS # 0.06 K/uL (0.11-0.59); NEUT % 91.9 %; NEUT ABS # 8.45 K/uL (1.4-6.5); PLATELET COUNT 166 K/uL (130-400); RED CELL DISTRIBUTION WIDTH CV 13.5 % (11.5-14.5); RED CELL DISTRIBUTION WIDTH SD 44.2 fL (36.4-46.3); WHITE BLOOD COUNT 9.19 K/uL (4.8-10.8)
[2017-11-22 23:24] LABS: BLOOD UREA NITROGEN 23 mg/dl (7-18); CARBON DIOXIDE 25 mmol/L (21-32); CREATININE 1.04 mg/dl (0.60-1.40); GLUCOSE 191 mg/dl (70-99); POTASSIUM 3.6 mmol/L (3.5-5.1); SODIUM 137 mmol/L (136-145)
[2017-11-22 23:28] LABS: MEAN CORPUSCULAR HGB CONC 34.2 g/dl (32-36)
[2017-11-23] VITALS (11 sets, daily range): BP systolic 120–143; BP diastolic 66–82; PULSE 69–81; TEMP 36.3–37.1; O2SAT 94–97
[2017-11-23] MEDS ORDERED: DEXTROSE 5% IV SCH ×2
[2017-11-23] MEDS ORDERED: METHYLPREDNISOLONE IV SCH ×2
[2017-11-23] MEDS ORDERED: DEXAMETHASONE INJ 6 MG in SYRINGE 0 ML IV SCH
[2017-11-23] MEDS: SODIUM CHLORIDE 0.9% 1000ML 1,000 ML IV SCH (02:35)
[2017-11-23] MEDS: ONDANSETRON INJ 2 MG/ML 2 ML VIAL IV PRN (05:47)
[2017-11-23] MEDS ORDERED: DC PCA SCH (06:00)
[2017-11-23] MEDS: CEFAZOLIN IV 3,000 MG in SYRINGE 0 ML IV SCH (06:32)
--- NOTE | 2017-11-23 06:54 | DIAGNOSTIC IMAGING REPORT ---
CHEST ONE VIEW PORTABLE HISTORY: 62 years-old Male hypoxia hypothermia acute hypoxia COMPARISON: Chest radiograph 11/11/2017 TECHNIQUE: Portable AP view of the chest FINDINGS: Cardiac silhouette is again mildly enlarged. Left subclavian pacer appears unchanged with leads intact. There is no pneumothorax, large pleural effusion or overt pulmonary edema. Linear subsegmental bibasilar opacities, left greater the right suggest atelectasis. Bones of the chest appear grossly intact. Fusion hardware of the thoracolumbar spine. Fusion hardware of the cervical spine also noted. IMPRESSION: 1. Cardiomegaly without acute process. 2. Minimal bibasilar opacities suggest atelectasis. The above report was generated using voice recognition software. It may contain grammatical, syntax or spelling errors. Electronically signed by: Clayton Dias M.D. 11/23/2017 6:52 AM Dictated Date/Time: 11/23/2017 6:51 AM
[2017-11-23 07:09] LABS: HEMOGLOBIN 11.8 g/dL (14.0-18.0); IG# 0.03 K/uL (0.00-0.02); LYMPH % 4.7 %; LYMPH ABS # 0.48 K/uL (1.2-3.4); MEAN CELL VOLUME 88.1 fL (80-100); MEAN CORPUSCULAR HEMOGLOBIN 30.6 pg (25-34); MEAN CORPUSCULAR HGB CONC 34.7 g/dl (32-36); MEAN PLATELET VOLUME 10.1 fL (7.4-10.4); MONO % 0.8 %; MONO ABS # 0.08 K/uL (0.11-0.59); NEUT % 94.2 %; NEUT ABS # 9.57 K/uL (1.4-6.5); PLATELET COUNT 173 K/uL (130-400); RED CELL DISTRIBUTION WIDTH CV 13.6 % (11.5-14.5); RED CELL DISTRIBUTION WIDTH SD 43.9 fL (36.4-46.3); WHITE BLOOD COUNT 10.16 K/uL (4.8-10.8)
[2017-11-23 07:41] LABS: CALCIUM 7.7 mg/dl (8.5-10.1); CREATININE 0.99 mg/dl (0.60-1.40)
[2017-11-23 08:07] LABS: HEMOGLOBIN A1C 4.8 % (4.5-5.6)
[2017-11-23] MEDS: HYDROmorphone INJ 0.5 MG/0.5 ML SYR IV PRN ×3 (08:22→21:51)
[2017-11-23] MEDS: INSULIN ASPART 100 UNITS/ML 3 ML PEN SC SCH ×4 (08:34→21:50)
--- NOTE | 2017-11-23 08:51 | Clinical Documentation Query ---
MARIA GUADALUPE Lester : CLINICAL DOCUMENTATION QUERIES QUERY 1 OF 2 Patient a 62 year old male admitted to undergo following elective procedure on 11/22/17: #1 removal instrumentation T12. 2 extrusion of fusion T12-L1. 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 #4 posterior spinal fusion T9-T10 T11-T12. #5 this posterior segment instrumentation T9 T10 T11. #6 number effusion T 11 T12. #7 plates of the cage 8 x 22 mm T11 12. #8 placement of locally harvested morcellized autograft in the posterior gutters. #Physician in physical sponge and Master graft the posterior gutters and osteotome bone graft in the interbody space. IM documentation includes T11-12 interbody fusion. [place] unsure if this is contradictory or voice recognition in operative record is erroneous. Please clarify as clinically appropriate to avoid phlebotomy tech uncertainty and ensure appropriate DRG assignment. Thank you. In your clinical opinion is this patient being managed for/was one of the performed procedures: ( ) T11-T12 Interbody fusion ( ) Not Agree ( ) Other explanation of clinical findings (Please Explain) ( ) Unable to determine (Please Define) ( ) Need to Discuss QUERY 2 OF 2 Patient remains without purposeful movement or sensation of bilateral legs and distal extremities since surgery. Patient was recieving and IV infusion of Solumedrol. No intraoperative complications noted. As appropriate, consider documentation as suggested below. Thank you. In your clinical opinion is this patient being managed for: ( ) (Possible)Spinal cord edema, incidental ( ) (Possible)Spinal cord edema, a complication of care ( ) Not Agree ( ) Other explanation of clinical findings (Please Explain) ( ) Unable to determine (Please Define) ( ) Need to Discuss The medical record reflects the following clinical findings, treatment, and risk factors. Clinical Indicators: As above Treatment: As above Risk Factors: Performed intraoperative procedures as documented. Please clarify and document your clinical opinion in the progress notes and discharge summary. Terms such as "probable", "suspected", "likely", "questionable", "possible", or "still to be ruled out" are acceptable. Please clarify and document your clinical opinion in the progress notes and discharge summary. Terms such as "probable", "suspected", "likely", "questionable", "possible", or "still to be ruled out" are acceptable. IF IN AGREEMENT, YOU MUST DOCUMENT ABOVE DIAGNOSTIC STATEMENT IN DAILY PROGRESS NOTES AND DISCHARGE SUMMARY. This document is not part of the patient's record. Thank You, Lenny Blanco, RN [phone]
--- NOTE | 2017-11-23 08:56 | Hospitalist Progress Note ---
Hospitalist Progress Note Date of Service Nov 23, 2017. Subjective Pt evaluation today including: conversation w/ patient, conversation w/ family , physical exam, chart review, lab review Pain: minimal low back pain PO Intake: fair Voiding: cooley catheter in place The patient was seen and examined this morning. Pt reports feeling ok this morning. He has some mild lower back pain. He still has no sensation in his legs bilaterally or the ability to move it. When sitting up for lung exam he notes a "wave of sensation down into both his legs" like "my leg is falling asleep" and further describes pin/needle-like sensation slightly. He vomited once this morning but was able to keep oatmeal down. We will plan on a neurology consult today and continuing the solumedrol infusion. Pts son is present at bedside and updated. His , Yvonne was also updated by phone. Additional Comments: Constitutional: No fever, sweats or chills, + fatigue Eyes: No diplopia, no worsening or blurred vision ENT: normal hearing, no trouble swallowing Respiratory: No cough, sputum, dyspnea at rest or on exertion Cardiovascular: No chest pain, tightness or palpitations Abdomen: No pain, nausea, vomiting, diarrhea or constipation Back: lower back pain Neurologic: + weakness and numbness/tingling, or balance problems Psychiatric: No anxiety or depression Skin: No rash or itch Objective Vital Signs Date Time Temp Pulse Resp B/P (MAP) Pulse Ox O2 Delivery O2 Flow Rate FiO2 11/23/17 08:25 36.3 69 18 131/78 (95) 96 Nasal Cannula 4.0 11/23/17 04:05 36.4 74 20 134/78 (96) 97 Nasal Cannula 4.0 11/23/17 04:00 Nasal Cannula 11/23/17 01:47 36.3 11/22/17 23:59 Nasal Cannula 11/22/17 23:24 36.4 72 14 150/83 (105) 97 Nasal Cannula 4.0 11/22/17 23:00 36.2 71 16 97 4.0 11/22/17 22:42 36.2 11/22/17 22:36 35.9 71 16 146/87 (106) 97 Nasal Cannula 4.0 11/22/17 22:18 35.9 11/22/17 21:38 72 130/81 (97) 94 Nasal Cannula 4.0 11/22/17 21:26 36.0 18 21:20 35.4 11/22/17 20:40 36.0 70 19 133/83 (100) 94 Nasal Cannula 4.0 11/22/17 20:02 35.5 11/22/17 19:40 35.6 70 19 153/91 (111) 96 Nasal Cannula 4.0 11/22/17 19:10 36.0 70 19 139/86 (103) 95 Nasal Cannula 4.0 11/22/17 18:40 94 Nasal Cannula 4.0 11/22/17 18:40 36.4 71 14 147/88 (107) 94 Nasal Cannula 4.0 11/22/17 18:40 Nasal Cannula 4.0 11/22/17 18:28 72 10 11/22/17 18:28 73 10 97 11/22/17 18:26 129/69 11/22/17 18:23 70 19 96 11/22/17 18:23 70 19 11/22/17 18:21 139/69 11/22/17 18:20 70 20 139/69 97 Nasal Cannula 4 11/22/17 18:18 72 12 11/22/17 18:18 73 12 98 11/22/17 18:16 138/73 11/22/17 18:13 70 10 11/22/17 18:13 70 10 96 11/22/17 18:11 140/77 11/22/17 18:08 75 12 11/22/17 18:08 75 12 98 11/22/17 18:06 145/82 11/22/17 18:03 70 12 95 11/22/17 18:03 70 12 11/22/17 18:01 143/84 11/22/17 18:00 36.0 70 11 143/84 95 Nasal Cannula 4 11/22/17 17:58 70 12 94 11/22/17 17:58 70 12 11/22/17 17:56 146/85 11/22/17 17:53 70 16 92 11/22/17 17:53 70 16 11/22/17 17:51 149/80 11/22/17 17:48 70 12 11/22/17 17:48 70 12 93 11/22/17 17:46 157/90 11/22/17 17:43 70 21 11/22/17 17:43 70 21 97 11/22/17 17:42 153/78 11/22/17 17:38 70 17 11/22/17 17:38 70 17 97 11/22/17 17:37 154/84 11/22/17 17:33 70 10 11/22/17 17:33 71 10 100 11/22/17 17:31 151/106 11/22/17 17:28 70 24 98 11/22/17 17:28 69 24 11/22/17 17:26 171/96 11/22/17 17:23 70 14 11/22/17 17:23 70 14 98 11/22/17 17:21 152/108 11/22/17 17:20 177/98 11/22/17 17:18 70 10 11/22/17 17:18 70 10 99 11/22/17 17:16 147/103 11/22/17 17:13 70 19 11/22/17 17:13 70 19 173/84 99 11/22/17 17:11 168/108 11/22/17 17:08 73 14 11/22/17 17:08 73 14 152/100 99 11/22/17 17:06 143/109 11/22/17 17:03 70 1 11/22/17 17:03 70 10 99 11/22/17 17:01 143/75 11/22/17 16:58 72 18 11/22/17 16:58 71 18 99 11/22/17 16:56 140/84 11/22/17 16:53 75 18 137/92 100 11/22/17 16:53 36.4 73 16 137/92 100 Oxymask 10 11/22/17 16:53 75 18 11/22/17 12:09 36.7 70 18 146/98 97 Room Air Physical Exam Notes: General: + Awake, no apparent distress, obese Head: Normocephalic, atraumatic ENT: PERRL, EOMI, no pharyngeal exudate, mucous membranes moist Chest: on 4 L via NC, Clear to auscultation, no adventitious breath sounds Cardiac: Regular rate and rhythm, + systolic murmur grade III/, no JVD, normal peripheral pulses, good capillary refill Abdominal: NABS x 4 quadrants, soft, nontender to palpation, no rebound, guarding or tenderness Extremities: Normal inspection, no peripheral edema or erythema, calfs nontender to palpation Psych: Normal mood and affect Neuro: AAO x 3, strength absent in lower extremities bilaterally, absent sensation to light touch in bilateral lower extremity, no motor deficits, speech is clear Laboratory Results Last 24 Hours Test 11/22/17 20:56 11/22/17 22:53 11/23/17 06:19 11/23/17 06:31 Bedside Glucose 169 mg/dl 191 mg/dl White Blood Count 9.19 K/uL 10.16 K/uL Red Blood Count 4.32 M/uL 3.86 M/uL Hemoglobin 13.1 g/dL 11.8 g/dL Hematocrit 38.3 % 34.0 % Mean Corpuscular Volume 88.7 fL 88.1 fL Mean Corpuscular Hemoglobin 30.3 pg 30.6 pg Mean Corpuscular Hemoglobin Concent 34.2 g/dl 34.7 g/dl Platelet Count 166 K/uL 173 K/uL Mean Platelet Volume 9.8 fL 10.1 fL Neutrophils (%) (Auto) 91.9 % 94.2 % Lymphocytes (%) (Auto) 7.1 % 4.7 % Monocytes (%) (Auto) 0.7 % 0.8 % Eosinophils (%) (Auto) 0.0 % 0.0 % Basophils (%) (Auto) 0.0 % 0.0 % Neutrophils # (Auto) 8.45 K/uL 9.57 K/uL Lymphocytes # (Auto) 0.65 K/uL 0.48 K/uL Monocytes # (Auto) 0.06 K/uL 0.08 K/uL Eosinophils # (Auto) 0.00 K/uL 0.00 K/uL Basophils # (Auto) 0.00 K/uL 0.00 K/uL RDW Standard Deviation 44.2 fL 43.9 fL RDW Coefficient of Variation 13.5 % 13.6 % Immature Granulocyte % (Auto) 0.3 % 0.3 % Immature Granulocyte # (Auto) 0.03 K/uL 0.03 K/uL Sodium Level 137 mmol/L 136 mmol/L Potassium Level 3.6 mmol/L 4.0 mmol/L Chloride Level 103 mmol/L 102 mmol/L Carbon Dioxide Level 25 mmol/L 23 mmol/L Anion Gap 9.0 mmol/L 10.0 mmol/L Blood Urea Nitrogen 23 mg/dl 20 mg/dl Creatinine 1.04 mg/dl 0.99 mg/dl Est Creatinine Clear Calc Drug Dose 94.2 ml/min 99.0 ml/min Estimated GFR () 88.8 94.2 Estimated GFR (Non- 76.6 81.3 BUN/Creatinine Ratio 21.6 19.9 Random Glucose 191 mg/dl 213 mg/dl Calcium Level 8.0 mg/dl 7.7 mg/dl Troponin I < 0.015 ng/ml Estimated Average Glucose 91 mg/dl Hemoglobin A1c 4.8 % Assessment and Plan This is a 62 yo M with PMHx of CAD s/p multiple cardiac stents ( last in LAD x 2 at [facility]), parosysmal afib, smyptomatic bradycardia s/p dual chamber pacemaker insertion, HTN, HLD, DM II, DENICE, GERD, morbid obesity, who is now s/p T9-T12 decompression/fusion, T12 hardware removal, interbody fusion at T11-T12 by Dr. Armstrong on 11/22/17. The patient lacked sensation below groin s/p surgical procedure and was started on Solumedrol protocol. S/p T9 - T12 decompression fusion, T12 hardware removal - Pain management with dilaudid manager council, no muscle relaxer ordered at this time, pt does use this at home, consider adding if worsening muscle spasm but would wait at this time due to somnolence.. - Continue solumedrol infusion per primary team: Solumedrol 30 mg/kg as a loading dose followed by a solumedrol infusion of 5.4 mg/kg/ml x 23 hours. - Frequent neurochecks, recommend Q1H until resolvement of sx - Consult neurology today - Considering MRI T-spine W/WO contrast - will make sure Dr. Almaraz agrees with this prior to ordering the study. Will not order until steriod infusion is completed. - Bowel regimen per primary team - PT nauseous and vomited this morning, continue antiemetics, likely dilaudid worsening nausea. He is tolerating PO intake fairly well this morning. 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 Pt is not on a statin therapy. No blood thinners. Hypokalemia - resolved. DENICE - Pt is supposed to wear CPAP at home but does not tolerate it- therefore refusing to wear this currently. Maintain on 4 L O2 via NC for now. DM II - Not on home insulin or oral medications - Check A1C with am labs - ISS with accuchecks while on solumedrol infusion GERD - Cont ranitidine - patient likely the patient frequently wakes up with foul taste in mouth, and vomits due to GERD - monitor. DVT ppx: no chemical anticoagulation, nonambulatory at this point, monitor closely. CODE STATU: Full code Disposition: From home, lives with , KAYLEE to assist with dc planning, per primary team Son, Chuck and , Yvonne both updated with plan for today.
[2017-11-23] MEDS: CETIRIZINE HCL 10 MG TAB PO SCH (09:30)
[2017-11-23] MEDS: CYCLOBENZAPRINE HCL 10 MG TAB PO SCH ×3 (09:31→22:00)
[2017-11-23] MEDS: METOPROLOL SUCC 50MG EXT REL TAB PO SCH (09:31)
[2017-11-23] MEDS: HYOSCYAMINE SULFATE 0.125 MG SL TAB PO SCH ×3 (09:31→22:00)
[2017-11-23] MEDS: ENALAPRIL MALEATE 10 MG TAB PO SCH ×2 (09:31→22:00)
[2017-11-23] MEDS: HYDROCHLOROTHIAZIDE 50 MG TAB PO SCH (09:31)
[2017-11-23] MEDS: GABAPENTIN 300 MG CAP PO SCH ×2 (09:31→22:00)
--- NOTE | 2017-11-23 09:33 | Anesthesiology Progress Note ---
Anesthesia Progress Note Date of Service Nov 23, 2017. Progress Notes Went to see Mr. Snyder this morning and spoke at length with he and his son. As stated in previous notes he continues to have inability to move his b/l lower extremities, has loss of sensation and also loss of proprioception. I was involved with the induction and intubation of this patient before turning over the case to pressure controller anesthesia team (report given, questions answered). Induction and intubation were uneventful. He was easily intubated and blood pressure was stable as demonstrated via the arterial line. I spoke briefly to attending surgeon, Dr. Almaraz, this morning and he stated he plans on doing an MRI on this patient today. I also called the patient's primary team and suggested that they involve neurology service in order to provide full neurological exam and treatment options. PA for primary team stated they would place the consult. In talking with the patient, I answered all questions relating to anesthesia. Our service will continue to monitor peripherally.
--- NOTE | 2017-11-23 09:47 | Anesthesiology Progress Note ---
Anesthesia Post Op Note Date & Time Nov 23, 2017 at 09:45 Vital Signs Pain Intensity: 4 Vital Signs Past 12 Hours Date Time Temp Pulse Resp B/P (MAP) Pulse Ox O2 Delivery O2 Flow Rate FiO2 11/23/17 08:25 36.3 69 18 131/78 (95) 96 Nasal Cannula 4.0 11/23/17 04:05 36.4 74 20 134/78 (96) 97 Nasal Cannula 4.0 11/23/17 04:00 Nasal Cannula 11/23/17 01:47 36.3 11/22/17 23:59 Nasal Cannula 11/22/17 23:24 36.4 72 14 150/83 (105) 97 Nasal Cannula 4.0 11/22/17 23:00 36.2 71 16 97 4.0 11/22/17 22:42 36.2 11/22/17 22:36 35.9 71 16 146/87 (106) 97 Nasal Cannula 4.0 11/22/17 22:18 35.9 Notes Mental Status: alert / awake / arousable Pt Amnestic to Procedure: Yes Nausea / Vomiting: improving with treatment Pain: improving with treatment Airway Patency, RR, SpO2: stable & adequate BP & HR: stable & adequate Hydration State: stable & adequate Anesthetic Complications: pt c/o nausea and having difficulty keep oral medications down; pt requests to continue IV pain medications until able to keep oral meds down; Pt is unable to move his lower extremeties and has no sensation in either leg. Pt states he woke up like this and has not had any improvement since; Pt also stated that he had a very low temperature over night that did not improve with a Jasmeet Hugger.
[2017-11-23] MEDS: HYDROCODONE/ACETAMI 10/325 TAB PO PRN ×2 (12:15→18:04)
--- NOTE | 2017-11-23 12:24 | Neurology Consultation ---
Neurology Consultation Date of Consultation: Nov 23, 2017. Attending Physician: Barry Almaraz D.O. Primary Care Physician: Apolonia Bolanos Reason for Consultation: Consultation for lower extremity paralysis and numbness History of Present Illness Source: patient, family, hospital records This is a 62-year-old male who presented for back pain and T9 through T12 thoracic decompression and fusion with T12 hardware removal on the . Patient postop was noted not to be able to move his legs and had diffuse numbness in lower extremities. Patient was started on a Solu-Medrol protocol per surgical team. Patient is not sure that he seen any sniffing improvement or worsening of symptoms since yesterday although his family reports that he was sort of out of it because of medications postop last night. Patient reports that overall his back pain does feel better compared to preop. He denies any radiculopathy type symptoms. He has some deep muscular pain in the area of the right hip. Denies any new arm symptoms. Reports that he normally has some intermittent numbness and tingling in his upper extremities secondary to chronic neck pain status post C5/C6 fusion. Denies any history of stroke. Denies any facial symptoms. Denies any changes with his vision. Denies any changes with his cognition. Denies any changes with his speech or swallowing. Patient reports that he did have some mild sense that he was urinating this morning. Past Medical/Surgical History CAD status post stents A. fib Bradycardia status post pacer Hypertension Dyslipidemia Diabetes type 2 Obstructive sleep apnea C5/C6 fusion Family History Family history cancer, diabetes, CAD Father: heart disease Mother: heart disease Sibling(s): heart disease Social History Normally patient is independent in his activities of daily living. No current tobacco use Smoking Status: Former smoker Drug Use: none Marital Status: Housing Status: lives with family Occupation Status: employed Allergies Coded Allergies: Loratadine (Verified Allergy, Severe, BREATHING DIFFICULTY, 11/11/17) Shellfish (Verified Allergy, Severe, throat gets scratchy, 11/11/17) Diphenhydramine (Verified Allergy, Intermediate, HIVES, 11/11/17) HIVES Macrolides (Verified Allergy, Intermediate, E-MYCIN=HIVES; "MYCINS"-- JAUNDICE, 11/11/17) Fish Allergy (Verified Allergy, Mild, THROAT SWELLS, 11/11/17) Rofecoxib (Verified Adverse Reaction, Severe, CARDIAC SX, 11/11/17) Oxycodone (Verified Adverse Reaction, Unknown, TERRIBLE DREAMS, DISORIENTATION, 11/22/17) Current Inpatient Medications Current Inpatient Medications Medications (Trade) Dose Ordered Sig/Berta Route Start Time Stop Time Status Last Admin Dose Admin Promethazine HCl 12.5 mg/Sodium Chloride 50.5 ml @ 202 mls/hr Q6H PRN IV 11/22/17 16:45 12/22/17 16:44 Ondansetron HCl (Zofran Inj) 4 mg Q6H PRN IV 11/22/17 16:45 12/22/17 16:44 11/23/17 05:47 4 MG Metoclopramide HCl (Reglan Inj) 10 mg Q6H PRN IV 11/22/17 16:45 12/22/17 16:44 11/23/17 08:32 10 MG Lorazepam (Ativan Tab) 0.5 mg Q8H PRN PO 11/22/17 16:45 12/22/17 16:44 Lorazepam 0.5 mg/ Syringe 0.25 ml @ 1 mls/min Q8H PRN IV 11/22/17 16:45 12/22/17 16:44 Pneumococcal Polysaccharide Vaccine 1 ea PRN PRN N/A 11/22/17 16:45 12/22/17 16:44 Influenza Virus Vacc Triv Types A&B 1 ea PRN PRN N/A 11/22/17 16:45 12/22/17 16:44 Polyethylene (Miralax Powder Packet) 17 gm Q6 PO 11/24/17 06:00 12/24/17 05:59 Bisacodyl (Dulcolax Supp) 10 mg DAILY PRN MD 11/22/17 16:45 12/22/17 16:44 Magnesium Hydroxide (Milk Of Magnesia Susp) 30 ml DAILY PRN PO 11/22/17 16:45 12/22/17 16:44 Hydromorphone HCl (Dilaudid Inj) 0.5-1mg prn moder... Q3H PRN IV 11/23/17 06:00 12/07/17 05:59 11/23/17 08:22 1 MG Acetaminophen (Tylenol Tab) 1,000 mg Q8H PRN PO 11/22/17 16:45 12/22/17 16:44 Acetaminophen 100 ml @ 400 mls/hr Q8H PRN IV 11/22/17 16:45 12/22/17 16:44 Naloxone HCl (Narcan Inj) 0.1 mg Q5M PRN IV 11/22/17 16:45 12/22/17 16:44 Senna/Docusate Sodium (Senokot S Tab) 2 tab HS PO 11/22/17 21:00 12/22/17 20:59 11/22/17 21:44 2 TAB Sodium Biphosphate/ Sodium Phosphate (Fleet Enema) 132 ml ONE PRN MD 11/22/17 16:45 12/22/17 16:44 Hydroxyzine HCl (Vistaril Tab) 25 mg Q8H PRN PO 11/22/17 16:45 12/22/17 16:44 Al Hydroxide/Mg Hydroxide (Maalox Susp) 30 ml Q6H PRN PO 11/22/17 16:45 12/22/17 16:44 Famotidine (Pepcid Tab) 20 mg Q12 PRN PO 11/22/17 16:45 12/22/17 16:44 Cetirizine HCl (zyrTEC TAB) 10 mg QAM PO 11/23/17 09:00 12/23/17 08:59 11/23/17 09:30 10 MG Cyclobenzaprine HCl (Flexeril Tab) 10 mg TID PO 11/22/17 21:00 12/22/17 20:59 11/23/17 09:31 10 MG Fluticasone Propionate (Flonase Nasal [place]) 1 sprays DAILY PRN BHAVIK 11/22/17 16:45 12/22/17 16:44 Gabapentin (Neurontin Cap) 300 mg BID PO 11/22/17 21:00 12/22/17 20:59 11/23/17 09:31 300 MG Hydrochlorothiazide (Hydrochlorothiazide Tab) 50 mg QAM PO 11/23/17 09:00 12/23/17 08:59 11/23/17 09:31 50 MG Acetaminophen/ Hydrocodone Bitart ([place] 10/325 Tab) 1 tab Q4H PRN PO 11/23/17 06:00 12/07/17 05:59 Hyoscyamine Sulfate (Levsin Tab) 0.125 mg TID PO 11/22/17 21:00 12/22/17 20:59 11/23/17 09:31 0.125 MG Metoprolol Succinate (Toprol Xl Tab) 100 mg QAM PO 11/23/17 09:00 12/23/17 08:59 11/23/17 09:31 100 MG Prochlorperazine Maleate (Compazine Tab) 10 mg HS PO 11/22/17 21:00 12/22/17 20:59 11/22/17 21:45 10 MG Ranitidine HCl (zANTac TAB) 150 mg QPM PO 11/22/17 21:00 12/22/17 20:59 11/22/17 21:44 150 MG Temazepam (Restoril Cap) 15 mg HS PO 11/22/17 21:00 12/22/17 20:59 Enalapril Maleate (Vasotec Tab) 20 mg BID PO 11/22/17 21:00 12/22/17 20:59 11/23/17 09:31 20 MG Doxazosin Mesylate (Cardura Tab) 1 mg HS PO 11/22/17 21:00 12/22/17 20:59 11/22/17 21:45 1 MG Miscellaneous Information (Order Awaiting Action) 1 ea QS N/A 11/23/17 00:00 12/23/17 00:00 Insulin Aspart (novoLOG ASPART) SLIDING SCALE If C... ACHS SC 11/22/17 21:00 12/22/17 20:59 11/23/17 08:34 5 UNITS Glucose (Glucose 40% Gel) 15-30 GRAMS 15 GRAMS... UD PRN PO 11/22/17 19:30 12/22/17 19:29 Glucose (Glucose Chew Tab) 4-8 Tablets 4 Tabl... UD PRN PO 11/22/17 19:30 12/22/17 19:29 Dextrose (Dextrose 50% 50ML Syringe) 25-50ML OF 50% DW IV FOR... UD PRN IV 11/22/17 19:30 12/22/17 19:29 Glucagon (Glucagon Inj) 1 mg UD PRN SQ 11/22/17 19:30 2/21/18 19:29 Review of Systems Complete review of systems otherwise negative except for the above noted in history of present illness Physical Exam Vital Signs (Past 24 Hrs): Date Time Temp Pulse Resp B/P (MAP) Pulse Ox O2 Delivery O2 Flow Rate FiO2 11/23/17 08:25 36.3 69 18 131/78 (95) 96 Nasal Cannula 4.0 11/23/17 08:00 Nasal Cannula 11/23/17 04:05 36.4 74 20 134/78 (96) 97 Nasal Cannula 4.0 11/23/17 04:00 Nasal Cannula 11/23/17 01:47 36.3 11/22/17 23:59 Nasal Cannula 11/22/17 23:24 36.4 72 14 150/83 (105) 97 Nasal Cannula 4.0 11/22/17 23:00 36.2 71 16 97 4.0 11/22/17 22:42 36.2 11/22/17 22:36 35.9 71 16 146/87 (106) 97 Nasal Cannula 4.0 11/22/17 22:18 35.9 11/22/17 21:38 72 130/81 (97) 94 Nasal Cannula 4.0 11/22/17 21:26 36.0 11/22/17 21:20 35.4 11/22/17 20:40 36.0 70 19 133/83 (100) 94 Nasal Cannula 4.0 11/22/17 20:02 35.5 11/22/17 19:40 35.6 70 19 153/91 (111) 96 Nasal Cannula 4.0 11/22/17 19:10 36.0 70 19 139/86 (103) 95 Nasal Cannula 4.0 11/22/17 18:40 94 Nasal Cannula 4.0 11/22/17 18:40 36.4 71 14 147/88 (107) 94 Nasal Cannula 4.0 11/22/17 18:40 Nasal Cannula 4.0 11/22/17 18:28 72 10 11/22/17 18:28 73 10 97 11/22/17 18:26 129/69 11/22/17 18:23 70 19 96 11/22/17 18:23 70 19 11/22/17 18:21 139/69 11/22/17 18:20 70 20 139/69 97 Nasal Cannula 4 11/22/17 18:18 72 12 11/22/17 18:18 73 12 98 11/22/17 18:16 138/73 11/22/17 18:13 70 10 11/22/17 18:13 70 10 96 11/22/17 18:11 140/77 11/22/17 18:08 75 12 11/22/17 18:08 75 12 98 11/22/17 18:06 145/82 11/22/17 18:03 70 12 95 11/22/17 18:03 70 12 11/22/17 18:01 143/84 11/22/17 18:00 36.0 70 11 143/84 95 Nasal Cannula 4 11/22/17 17:58 70 12 94 11/22/17 17:58 70 12 11/22/17 17:56 146/85 11/22/17 17:53 70 16 92 11/22/17 17:53 70 16 11/22/17 17:51 149/80 11/22/17 17:48 70 12 11/22/17 17:48 70 12 93 11/22/17 17:46 157/90 11/22/17 17:43 70 21 11/22/17 17:43 70 21 97 11/22/17 17:42 153/78 11/22/17 17:38 70 17 11/22/17 17:38 70 17 97 11/22/17 17:37 154/84 11/22/17 17:33 70 10 11/22/17 17:33 71 10 100 11/22/17 17:31 151/106 11/22/17 17:28 70 24 98 11/22/17 17:28 69 24 18 17:26 171/96 11/22/17 17:23 70 14 11/22/17 17:23 70 14 98 11/22/17 17:21 152/108 11/22/17 17:20 177/98 11/22/17 17:18 70 10 11/22/17 17:18 70 10 99 18 17:16 147/103 11/22/17 17:13 70 19 11/22/17 17:13 70 19 173/84 99 11/22/17 17:11 168/108 11/22/17 17:08 73 14 11/22/17 17:08 73 14 152/100 99 11/22/17 17:06 143/109 11/22/17 17:03 70 1 11/22/17 17:03 70 10 99 11/22/17 17:01 143/75 11/22/17 16:58 72 18 11/22/17 16:58 71 18 99 11/22/17 16:56 140/84 11/22/17 16:53 75 18 137/92 100 11/22/17 16:53 36.4 73 16 137/92 100 Oxymask 10 11/22/17 16:53 75 18 Gen.: Patient is alert and sitting in bed, in no acute distress. HEENT: Normocephalic /atraumatic, no scleral icterus Heart: Regular rate and rhythm Extremities: No gross deformities or rashes noted Neurological examination: Mental status: Patient is alert and oriented x3. Attention and concentration normal for the situation. Good fund of knowledge. Remote and recent memory intact. Speech is fluent without any dysarthria or aphasia noted Cranial nerve: Funduscopic examination was unremarkable. No papilledema. Pupils equally round and reactive to light. Extraocular muscles intact without nystagmus. No facial asymmetry noted. Facial sensation intact. Tongue is midline. Good palatal elevation. Good shoulder shrug bilaterally. Hearing grossly intact to voice. Strength: 5/5 both proximal and distally in bilateral upper extremities. There is no arm drift. Tone is normal. 0/5 in bilateral lower extremities in all muscle groups diffusely. Abdominal muscle movement appeared to be intact. Sensation: Grossly intact to light touch in bilateral upper extremities. Patient reported some burning sensation around the level of T10/T11 on his abdomen and decrease of sensation around T11/T12. Absolute no ability to feel in the groin area and lower extremities. Deep tendon reflexes: +1 in bilateral biceps, brachioradialis and +0 patellar. Toes were upgoing to plantar stimulation bilaterally Coordination: Patient had good finger to nose without dysmetria Gait could not be tested secondary to lower extremity paralysis Laboratory Results Past 24 Hours: 11/23/17 06:31 Red Blood Count 3.86, Mean Corpuscular Volume 88.1, Mean Corpuscular Hemoglobin 30.6, Mean Corpuscular Hemoglobin Concent 34.7, Mean Platelet Volume 10.1, Neutrophils (%) (Auto) 94.2, Lymphocytes (%) (Auto) 4.7, Monocytes (%) (Auto) 0.8, Eosinophils (%) (Auto) 0.0, Basophils (%) (Auto) 0.0, Neutrophils # (Auto) 9.57, Lymphocytes # (Auto) 0.48, Monocytes # (Auto) 0.08, Eosinophils # (Auto) 0.00, Basophils # (Auto) 0.00 11/23/17 06:31 Test 11/22/17 22:53 11/23/17 06:31 11/23/17 11:45 Troponin I < 0.015 ng/ml (0-0.045) White Blood Count 10.16 K/uL (4.8-10.8) Red Blood Count 3.86 M/uL (4.7-6.1) Hemoglobin 11.8 g/dL (14.0-18.0) Hematocrit 34.0 % (42-52) Mean Corpuscular Volume 88.1 fL (80-100) Mean Corpuscular Hemoglobin 30.6 pg (25-34) Mean Corpuscular Hemoglobin Concent 34.7 g/dl (32-36) Platelet Count 173 K/uL (130-400) Mean Platelet Volume 10.1 fL (7.4-10.4) Neutrophils (%) (Auto) 94.2 % Lymphocytes (%) (Auto) 4.7 % Monocytes (%) (Auto) 0.8 % Eosinophils (%) (Auto) 0.0 % Basophils (%) (Auto) 0.0 % Neutrophils # (Auto) 9.57 K/uL (1.4-6.5) Lymphocytes # (Auto) 0.48 K/uL (1.2-3.4) Monocytes # (Auto) 0.08 K/uL (0.11-0.59) Eosinophils # (Auto) 0.00 K/uL (0-0.5) Basophils # (Auto) 0.00 K/uL (0-0.2) RDW Standard Deviation 43.9 fL (36.4-46.3) RDW Coefficient of Variation 13.6 % (11.5-14.5) Immature Granulocyte % (Auto) 0.3 % Immature Granulocyte # (Auto) 0.03 K/uL (0.00-0.02) Anion Gap 10.0 mmol/L (3-11) Est Creatinine Clear Calc Drug Dose 99.0 ml/min Estimated GFR () 94.2 Estimated GFR (Non- 81.3 BUN/Creatinine Ratio 19.9 (10-20) Estimated Average Glucose 91 mg/dl Hemoglobin A1c 4.8 % (4.5-5.6) Calcium Level 7.7 mg/dl (8.5-10.1) Bedside Glucose 318 mg/dl (70-99) Impression This is a 62-year-old male with numbness and complete paralysis of the bilateral lower extremities with a sensory level around T11/T12. Symptoms occurred postop after T9 through T12 decompression and fusion with T12 hardware removal November 22. Differential diagnosis includes postoperative inflammation of the cord, spinal shock, compressive lesion, versus spinal stroke. Plan Agree with trial of steroids to see if this improves his symptoms. I don't have any additional recommendations for acute treatment Ideally an MRI of the T-spine would be helpful for further evaluation to evaluate for compressive lesion versus spinal infarct. May be limited due to recent hardware. If unable to get an MRI of the back, could consider CT of the T-spine, although this would not give good information on the spinal cord itself but would at least give us an idea if there is a compressive lesion. Discussed differential diagnosis with patient and family and various prognosis depending on etiology for spinal cord lesion and paralysis. Discussed that best case scenario would be spinal shock or inflammation as this would likely improve with steroids and time. Discussed intermediate prognosis if compressive lesion depending on type in etiology. Discussed likely poor prognosis if spinal stroke. If the patient truly does have A. fib, should be on anticoagulation for stroke prevention. Anticoagulation versus antiplatelets should be resumed postop whenever surgically safe to do so. Physical therapy evaluation and treatment as indicated postop Thank you for allowing me to participate in this patient's care. If there is any questions or concerns, fell free to call/page me
--- NOTE | 2017-11-23 13:18 | Progress Note ---
Progress Note Date of Service Nov 23, 2017. Progress Note Patient is postop day #1. His thoracic back pain is reasonably controlled. Describes a burning sensation along the lower abdomen bilaterally. Compared last evening he is starting to appreciate sensation in his lower extremities left greater than right. Last evening on exam he had absolutely no sensation to palpation of his upper thighs. Today there is some improvement to the upper thighs. He notes appreciable sensation bilateral lower extremities. No motor function at this time. He has reasonable proprioception to the left lower extremity absent on the right. He has Babinski bilaterally. There is no evidence of clonus. At this time we will order an MRI of the thoracic spine to be performed either today or tomorrow. We'll transfer him to the orthopedic floor today.
[2017-11-23] MEDS: PROCHLORPERAZINE MALEATE 10 MG TAB PO SCH (22:00)
[2017-11-23] MEDS: RANITIDINE HCL 150 MG TAB PO SCH (22:00)
[2017-11-23] MEDS: DOCUSATE SODIUM/SENNA 50/8.6MG TAB PO SCH (22:00)
[2017-11-23] MEDS: TEMAZEPAM 15 MG CAP PO SCH (22:32)
[2017-11-23] MEDS: DOXAZosin TAB 1 MG TAB PO SCH (22:32)
[2017-11-24] MEDS: POLYETHYLENE (MIRALAX) 17 GM PACK PO SCH ×4 (05:32→18:07)
[2017-11-24] MEDS: HYDROCODONE/ACETAMI 10/325 TAB PO PRN ×3 (05:37→21:03)
[2017-11-24 06:58] VITALS: BP 133/73; PULSE 75; TEMP 36.6; O2SAT 95
[2017-11-24] MEDS: HYOSCYAMINE SULFATE 0.125 MG SL TAB PO SCH ×3 (08:53→20:55)
[2017-11-24] MEDS: HYDROCHLOROTHIAZIDE 50 MG TAB PO SCH (08:53)
[2017-11-24] MEDS: CYCLOBENZAPRINE HCL 10 MG TAB PO SCH ×3 (08:53→20:56)
[2017-11-24] MEDS: METOPROLOL SUCC 50MG EXT REL TAB PO SCH (08:54)
[2017-11-24] MEDS: GABAPENTIN 300 MG CAP PO SCH ×2 (08:54→20:55)
[2017-11-24] MEDS: CETIRIZINE HCL 10 MG TAB PO SCH (08:55)
[2017-11-24] MEDS: ENALAPRIL MALEATE 10 MG TAB PO SCH ×2 (08:55→20:55)
[2017-11-24] MEDS ORDERED: NURSING VERBAL MED ORDER ONE (09:00)
[2017-11-24] MEDS: INSULIN ASPART 100 UNITS/ML 3 ML PEN SC SCH ×4 (09:02→21:53)
--- NOTE | 2017-11-24 09:03 | Hospitalist Progress Note ---
Hospitalist Progress Note Date of Service Nov 24, 2017. Subjective Pt evaluation today including: conversation w/ patient, conversation w/ family , physical exam, chart review, lab review Pain: Mild low back soreness PO Intake: Good Voiding: cooley catheter in place The patient was seen and examined this morning. Pt reports doing better today. He is starting to regain sensation in his lower extremities. Last evening could feel scd squeeze on the left side, and he is gaining sensation in the Left great toe. He has minimal sensation in the R upper leg and is beginning to feel the scds squeeze there as well. He is unsure if he's passing gas, and has not had a bowel movement, but is tolerating a PO diet without difficulty. His family at bedside was updated and all their questions and concerns were addressed. Plans to repeat thoracic MRI today since solumedrol gtt finished. ROS: 6 point ROS reviewed and negative. Objective Vital Signs Date Time Temp Pulse Resp B/P (MAP) Pulse Ox O2 Delivery O2 Flow Rate FiO2 11/24/17 08:22 Room Air 11/24/17 06:58 36.6 75 19 133/73 (93) 95 Room Air 11/23/17 23:52 95 Nasal Cannula 2.0 11/23/17 23:35 37.1 81 18 126/69 (88) 95 Nasal Cannula 2.0 11/23/17 22:30 78 135/78 (97) 11/23/17 21:55 77 133/73 (93) 11/23/17 19:29 36.8 80 16 125/73 (90) 94 Room Air 11/23/17 15:12 36.5 73 16 128/79 (95) 96 2.0 11/23/17 14:30 Nasal Cannula 11/23/17 14:18 36.7 75 18 143/82 (102) 94 Room Air 11/23/17 13:58 36.7 77 16 96 4.0 11/23/17 12:13 36.7 77 16 120/66 (84) 96 Nasal Cannula 4.0 11/23/17 12:00 Nasal Cannula Physical Exam Notes: General: + Awake, no apparent distress, obese Head: Normocephalic, atraumatic ENT: PERRL, EOMI, no pharyngeal exudate, mucous membranes moist Chest: on 4 L via NC, Clear to auscultation, no adventitious breath sounds Cardiac: Regular rate and rhythm, + systolic murmur grade III/, no JVD, normal peripheral pulses, good capillary refill Abdominal: NABS x 4 quadrants, soft, nontender to palpation, no rebound, guarding or tenderness Extremities: Normal inspection, no peripheral edema or erythema, calfs nontender to palpation Psych: Normal mood and affect Neuro: AAO x 3, Pt has sensation to light touch in the lateral dorsal aspect of the left foot, and upper lateral thighs bilaterally, strength 0/5 BLE. Pt is able to move R great toe slightly. Unable to dorsi or plantarflex BLE. Speech is clear Laboratory Results Last 24 Hours Test 11/23/17 11:45 11/23/17 17:29 11/23/17 20:57 Bedside Glucose 318 mg/dl 183 mg/dl 186 mg/dl Assessment and Plan This is a 62 yo M with PMHx of CAD s/p multiple cardiac stents ( last in LAD x 2 at [facility]), parosysmal afib, smyptomatic bradycardia s/p dual chamber pacemaker insertion, HTN, HLD, DM II, DENICE, GERD, morbid obesity, who is now s/p T9-T12 decompression/fusion, T12 hardware removal, interbody fusion at T11-T12 by Dr. Armstrong on 11/22/17. The patient lacked sensation below groin s/p surgical procedure and was started on Solumedrol protocol x 24 hrs. 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 - Neuro consulted - appreciate recs - Repeat MRI T-spine W/WO contrast today - N/V resolved at this point - continue antiemetics prn - Will start on daily miralax and dulcolax tabs as pt without BM x 3-4 days and tolerating PO intake. Can make prn once has BM. HTN HLD CAD s/p multiple stents Paroxsysmal afib - Continue on [employer] meds: metoprolol succ 100 mg QAM. Pt is not on a statin therapy. No blood thinners. - Neuro recs being on anticoagulation at earliest time when able for stroke prevention. Hypokalemia - resolved. DENICE - Pt is supposed to wear CPAP at home but does not tolerate it- therefore refusing to wear this currently. Maintain on 4 L O2 via NC for now. DM II - Not on home insulin or oral medications - A1C= 4.8 - ISS with accuchecks while on solumedrol infusion GERD - Cont ranitidine - patient likely the patient frequently wakes up with foul taste in mouth, and vomits due to GERD - monitor. DVT ppx: no chemical anticoagulation, nonambulatory at this point, monitor closely. CODE STATU: Full code Disposition: From home, lives with , KAYLEE to assist with dc planning, per primary team SonChuck other family at bedside updated, all questions and concerns were addressed.
[2017-11-24] MEDS: FAMOTIDINE 20 MG TAB PO PRN ×2 (09:25→22:00)
[2017-11-24] MEDS: HYDROmorphone INJ 0.5 MG/0.5 ML SYR IV PRN ×2 (12:51→16:53)
--- NOTE | 2017-11-24 12:51 | Neurology Progress Notes ---
Neurology Progress Note Date of Service Nov 24, 2017. Subjective The patient reports some improved sensation of movement since I saw him yesterday morning. Denies any new neurological symptoms or worsening of symptoms. Objective Date Time Temp Pulse Resp B/P (MAP) Pulse Ox O2 Delivery O2 Flow Rate FiO2 11/24/17 08:22 Room Air 11/24/17 06:58 36.6 75 19 133/73 (93) 95 Room Air 11/23/17 23:52 95 Nasal Cannula 2.0 11/23/17 23:35 37.1 81 18 126/69 (88) 95 Nasal Cannula 2.0 11/23/17 22:30 78 135/78 (97) 11/23/17 21:55 77 133/73 (93) 11/23/17 19:29 36.8 80 16 125/73 (90) 94 Room Air 11/23/17 15:12 36.5 73 16 128/79 (95) 96 2.0 11/23/17 14:30 Nasal Cannula 11/23/17 14:18 36.7 75 18 143/82 (102) 94 Room Air 11/23/17 13:58 36.7 77 16 96 4.0 Last 24 Hours Test 11/23/17 17:29 11/23/17 20:57 11/24/17 08:11 11/24/17 12:08 Bedside Glucose 183 mg/dl 186 mg/dl 161 mg/dl 188 mg/dl Exam: Gen.: Patient is alert and laying in bed, in no acute distress. HEENT: Normocephalic /atraumatic, no scleral icterus Extremities: No gross deformities or rashes noted Neurological examination: Mental status: Patient is alert and oriented x3. Attention and concentration normal for the situation. Good fund of knowledge. Remote and recent memory intact. Speech is fluent without any dysarthria or aphasia noted Cranial nerve: No facial asymmetry noted. Hearing grossly intact to voice. Strength: 5/5 both proximal and distally in bilateral upper extremities. Abdominal muscle movement appeared to be intact. 2/5 right great toe movement, 3 /5 to movement and dorsiflexion. Otherwise lower extremity strength bilaterally 0/5. Sensation: Grossly intact to light touch in bilateral upper extremities. Patient reported some burning sensation around the level of T10/T11 on his abdomen and decrease of sensation around T12 (seems slightly improved compared to yesterday). Absolute no ability to feel in the lower extremities. Gait could not be tested secondary to lower extremity paralysis Current Inpatient Medications Medications (Trade) Dose Ordered Sig/Berta Route Start Time Stop Time Status Last Admin Dose Admin Promethazine HCl 12.5 mg/Sodium Chloride 50.5 ml @ 202 mls/hr Q6H PRN IV 11/22/17 16:45 12/22/17 16:44 Ondansetron HCl (Zofran Inj) 4 mg Q6H PRN IV 11/22/17 16:45 12/22/17 16:44 11/23/17 05:47 4 MG Metoclopramide HCl (Reglan Inj) 10 mg Q6H PRN IV 11/22/17 16:45 12/22/17 16:44 11/23/17 08:32 10 MG Lorazepam (Ativan Tab) 0.5 mg Q8H PRN PO 11/22/17 16:45 12/22/17 16:44 Lorazepam 0.5 mg/ Syringe 0.25 ml @ 1 mls/min Q8H PRN IV 11/22/17 16:45 12/22/17 16:44 Pneumococcal Polysaccharide Vaccine 1 ea PRN PRN N/A 11/22/17 16:45 12/22/17 16:44 Influenza Virus Vacc Triv Types A&B 1 ea PRN PRN N/A 11/22/17 16:45 12/22/17 16:44 Polyethylene (Miralax Powder Packet) 17 gm Q6 PO 11/24/17 06:00 12/24/17 05:59 11/24/17 11:56 17 GM Bisacodyl (Dulcolax Supp) 10 mg DAILY PRN [place] 11/22/17 16:45 12/22/17 16:44 Magnesium Hydroxide (Milk Of Magnesia Susp) 30 ml DAILY PRN PO 11/22/17 16:45 12/22/17 16:44 Hydromorphone HCl (Dilaudid Inj) 0.5-1mg prn moder... Q3H PRN IV 11/23/17 06:00 12/07/17 05:59 11/23/17 21:51 0.5 MG Acetaminophen (Tylenol Tab) 1,000 mg Q8H PRN PO 11/22/17 16:45 12/22/17 16:44 Acetaminophen 100 ml @ 400 mls/hr Q8H PRN IV 11/22/17 16:45 12/22/17 16:44 Naloxone HCl (Narcan Inj) 0.1 mg Q5M PRN IV 11/22/17 16:45 12/22/17 16:44 Senna/Docusate Sodium (Senokot S Tab) 2 tab HS PO 11/22/17 21:00 12/22/17 20:59 11/23/17 22:00 2 TAB Sodium Biphosphate/ Sodium Phosphate (Fleet Enema) 132 ml ONE PRN [place] 11/22/17 16:45 12/22/17 16:44 Hydroxyzine HCl (Vistaril Tab) 25 mg Q8H PRN PO 11/22/17 16:45 12/22/17 16:44 Al Hydroxide/Mg Hydroxide (Maalox Susp) 30 ml Q6H PRN PO 11/22/17 16:45 12/22/17 16:44 Famotidine (Pepcid Tab) 20 mg Q12 PRN PO 11/22/17 16:45 12/22/17 16:44 11/24/17 09:25 20 MG Cetirizine HCl (zyrTEC TAB) 10 mg QAM PO 11/23/17 09:00 12/23/17 08:59 11/24/17 08:55 10 MG Cyclobenzaprine HCl (Flexeril Tab) 10 mg TID PO 11/22/17 21:00 12/22/17 20:59 11/24/17 08:53 10 MG Fluticasone Propionate (Flonase Nasal [place]) 1 sprays DAILY PRN BHAVIK 11/22/17 16:45 12/22/17 16:44 Gabapentin (Neurontin Cap) 300 mg BID PO 11/22/17 21:00 12/22/17 20:59 11/24/17 08:54 300 MG Hydrochlorothiazide (Hydrochlorothiazide Tab) 50 mg QAM PO 11/23/17 09:00 12/23/17 08:59 11/24/17 08:53 50 MG Acetaminophen/ Hydrocodone Bitart ([place] 10/325 Tab) 1 tab Q4H PRN PO 11/23/17 06:00 12/07/17 05:59 11/24/17 11:16 1 TAB Hyoscyamine Sulfate (Levsin Tab) 0.125 mg TID PO 11/22/17 21:00 12/22/17 20:59 11/24/17 08:53 0.125 MG Metoprolol Succinate (Toprol Xl Tab) 100 mg QAM PO 11/23/17 09:00 12/23/17 08:59 11/24/17 08:54 100 MG Prochlorperazine Maleate (Compazine Tab) 10 mg HS PO 11/22/17 21:00 12/22/17 20:59 11/23/17 22:00 10 MG Ranitidine HCl (zANTac TAB) 150 mg QPM PO 11/22/17 21:00 12/22/17 20:59 11/23/17 22:00 150 MG Temazepam (Restoril Cap) 15 mg HS PO 11/22/17 21:00 12/22/17 20:59 11/23/17 22:32 15 MG Enalapril Maleate (Vasotec Tab) 20 mg BID PO 11/22/17 21:00 12/22/17 20:59 11/24/17 08:55 20 MG Doxazosin Mesylate (Cardura Tab) 1 mg HS PO 11/22/17 21:00 12/22/17 20:59 11/23/17 22:32 1 MG Miscellaneous Information (Order Awaiting Action) 1 ea QS N/A 11/23/17 00:00 12/23/17 00:00 Insulin Aspart (novoLOG ASPART) SLIDING SCALE If C... ACHS SC 11/22/17 21:00 12/22/17 20:59 11/24/17 09:02 5 UNITS Glucose (Glucose 40% Gel) 15-30 GRAMS 15 GRAMS... UD PRN PO 11/22/17 19:30 12/22/17 19:29 Glucose (Glucose Chew Tab) 4-8 Tablets 4 Tabl... UD PRN PO 11/22/17 19:30 12/22/17 19:29 Dextrose (Dextrose 50% 50ML Syringe) 25-50ML OF 50% DW IV FOR... UD PRN IV 11/22/17 19:30 12/22/17 19:29 Glucagon (Glucagon Inj) 1 mg UD PRN SQ 11/22/17 19:30 12/22/17 19:29 Impression This is a 62-year-old male with numbness and complete paralysis of the bilateral lower extremities with a sensory level around T11/T12. Symptoms occurred postop after T9 through T12 decompression and fusion with T12 hardware removal November 22. Differential diagnosis includes postoperative inflammation of the cord, spinal shock, compressive lesion, versus spinal stroke. Mild improvement of strength and sensation in the last 24 hours Plan Agree with trial of steroids to see if this improves his symptoms. Ideally an MRI of the T-spine would be helpful for further evaluation to evaluate for compressive lesion versus spinal infarct. May be limited due to recent hardware. MRI is pending If unable to get an MRI of the back, could consider CT of the T-spine, although this would not give good information on the spinal cord itself but would at least give us an idea if there is a compressive lesion. If the patient truly does have A. fib, should be on anticoagulation for stroke prevention. Anticoagulation versus antiplatelets should be resumed postop whenever surgically safe to do so. Physical therapy evaluation and treatment as indicated postop Thank you for allowing me to participate in this patient's care. If there is any questions or concerns, fell free to call/page me
[2017-11-24] MEDS ORDERED: BISACODYL 5 MG TABEC PO SCH (13:30)
--- NOTE | 2017-11-24 16:07 | DIAGNOSTIC IMAGING REPORT ---
MRI OF THE THORACIC SPINE WITHOUT CONTRAST CLINICAL HISTORY: Postoperative neurologic deficit. Spinal stenosis. COMPARISON: MRI of the thoracic spine October 22, 2017. TECHNIQUE: Utilizing a 1.5 Teresa magnet and dedicated coil, multiplanar, multiecho imaging of the thoracic spine was performed without IV contrast. FINDINGS: The patient is status post interval T11-T12 discectomy with interbody spacer placement since MRI of October 22, 2017. T12 pedicle screws have been removed. Mild loss of height of the superior endplate of T12 is similar to exam of October 22, 2017. A multilevel laminectomy is noted. Evaluation is,] susceptibility artifact from the hardware. There has been placement of bilateral pedicle screws at the T9, T10 and T11 level since prior exam. Thoracic cord signal is suboptimally assessed given susceptibility artifact however there is suggestion of increased central T2 signal within the cord at the T10-T11 level. This was not present on prior MRI. Note is made of a tiny T1 and T2 hyperintense intracanalicular collection at the T9-T10 level within the posterior aspect of the canal that measures 3.5 x 0.2 cm in size. This may reflect a tiny subdural hematoma. No additional intracanalicular fluid collections are present. Paravertebral soft tissues are unremarkable. Central canal is patent within the thoracic canal. Please note that the inferior aspect of the fusion within the lumbar region was not imaged on this thoracic spine MRI. The neural foramen are difficult to assess given susceptibility artifact within the lower thoracic spine. IMPRESSION: 1. Interval postoperative findings within the thoracic spine including removal of T12 pedicle screws, T11-T12 discectomy and T9-T11 bilateral pedicle screw fusion. 2. Suspected central T2 hyperintensity within the thoracic cord at the T10-T11 level which is suboptimally assessed due to artifact from the hardware. This cord signal abnormality could reflect cord edema or short segment cord infarct. 3. Tiny 3.5 x 0.2 cm T1 and T2 hyperintense intracanalicular fluid collection at the T9-T10 level which may reflect a tiny subdural hematoma. No significant mass effect. A short-term follow-up MRI of the thoracic spine might be considered. Electronically signed by: Meir Vasquez M.D. 11/24/2017 4:06 PM Dictated Date/Time: 11/24/2017 3:42 PM
[2017-11-24 16:15] VITALS: BP 163/87; PULSE 84; TEMP 36.4; O2SAT 93
--- NOTE | 2017-11-24 16:22 | Progress Note ---
Progress Note Date of Service Nov 24, 2017. Progress Note Patient is seen today. He states his back pain is relatively well controlled. He describes continued burning sensation along the T12 dermatome bilaterally. His noting sensations in the bilateral lower extremities. On exam he's exhibiting the beginnings of motor function to plantar flexion dorsiflexion and hip flexors on the left. Absence of motor function on the right lower extremity. There is beginnings of sensation and proprioception to the left lower extremity compared to the right. An MRI was obtained of the thoracic spine. Demonstrates what appears to be some swelling within the cord at the T10 11 region. There is some difficulty in thorough assessment secondary to metal artifact. The hardware however isn't appropriate placement. There is no evidence of any significant epidural hematoma. Assessment status post thoracic fusion with postoperative neurologic deficit. Plan at this time we will initiate anticoagulation tomorrow. We'll consult occupational therapy further input as the patient would like to begin working with his lower extremities. We will be consult in [facility] for placement in the future.
[2017-11-24 20:30] VITALS: BP 136/70; PULSE 74; TEMP 36.6; O2SAT 96
[2017-11-24] MEDS: PROCHLORPERAZINE MALEATE 10 MG TAB PO SCH (20:55)
[2017-11-24] MEDS: DOCUSATE SODIUM/SENNA 50/8.6MG TAB PO SCH (20:55)
[2017-11-24] MEDS: RANITIDINE HCL 150 MG TAB PO SCH (20:55)
[2017-11-24] MEDS: TEMAZEPAM 15 MG CAP PO SCH (20:55)
[2017-11-24] MEDS: PITAVASTATIN CALCIUM 4 MG TAB PO SCH (20:56)
[2017-11-24] MEDS: DOXAZosin TAB 1 MG TAB PO SCH (21:00)
[2017-11-25] VITALS: BP 132/73; PULSE 71; TEMP 36.5; O2SAT 94
[2017-11-25] MEDS: POLYETHYLENE (MIRALAX) 17 GM PACK PO SCH ×6 (05:28→23:44)
--- NOTE | 2017-11-25 08:19 | Hospitalist Progress Note ---
Hospitalist Progress Note Date of Service Nov 25, 2017. Subjective Pt evaluation today including: conversation w/ patient, conversation w/ family , physical exam, chart review, lab review, review of studies Pain: Low back pain PO Intake: Good Voiding: cooley catheter in place The patient was seen and examined this morning. Pt reports not doing well today - his spirits are low, and he is borderline crying when I walked into the room. He is having pain in his back today, but denies sensation of pain down into his legs. His bowels have not moved since admission, although he is having the sensation of needing to have a BM. Pt is tolerating oral intake well. Pt has not yet worked with occupational or physical therapy, but agreeable to this today. ROS: 6 point ROS reviewed and otherwise negative. Objective Vital Signs Date Time Temp Pulse Resp B/P (MAP) Pulse Ox O2 Delivery O2 Flow Rate FiO2 11/25/17 00:00 36.5 71 18 132/73 (92) 94 Room Air 11/24/17 20:30 36.6 74 18 136/70 (92) 96 Room Air 11/24/17 20:00 Room Air 11/24/17 16:15 36.4 84 18 163/87 (112) 93 Room Air 11/24/17 08:22 Room Air Physical Exam Notes: General: + Awake, no apparent distress, obese Head: Normocephalic, atraumatic ENT: PERRL, EOMI, no pharyngeal exudate, mucous membranes moist Chest: on room air, Clear to auscultation, no adventitious breath sounds Cardiac: Regular rate and rhythm, + systolic murmur grade III/, no JVD, normal peripheral pulses, good capillary refill Abdominal: NABS x 4 quadrants, soft, nontender to palpation, no rebound, guarding or tenderness Extremities: Normal inspection, no peripheral edema or erythema, calfs nontender to palpation Psych: Normal mood and affect Neuro: AAO x 3, Pt has sensation to light touch in the lateral dorsal aspect of the left foot and bottom of the left foot below the great toe, sensation to upper lateral right thigh, strength 0/5 BLE. Unable to dorsi or plantarflex BLE. Speech is clear Laboratory Results Last 24 Hours Test 11/24/17 12:08 11/24/17 17:04 11/24/17 20:48 11/25/17 08:08 Bedside Glucose 188 mg/dl 156 mg/dl 183 mg/dl Assessment and Plan This is a 62 yo M with PMHx of CAD s/p multiple cardiac stents ( last in LAD x 2 at [facility]), parosysmal afib, smyptomatic bradycardia s/p dual chamber pacemaker insertion, HTN, HLD, DM II, DENICE, GERD, morbid obesity, who is now s/p T9-T12 decompression/fusion, T12 hardware removal, interbody fusion at T11-T12 by Dr. Armstrong on 11/22/17. The patient lacked sensation below groin s/p surgical procedure and was started on Solumedrol protocol x 24 hrs. S/p T9 - T12 decompression fusion, T12 hardware removal - Pain management with dilaudid fire investigator, flexeril on board for muscle spasm - Solumedrol 30 mg/kg as a loading dose followed by a solumedrol infusion of 5.4 mg/kg/ml x 23 hours - completed. - Neuro consulted - appreciate recs - Repeat MRI T-spine W/WO contrast11/24 showed T10-T11 hyperintensity which could reflect cord edema or short segment cord infarct. Also a ting 3.5 x 0.2 cm T1 and T2 hyperintense intracanalicular fluid collection at level of T9-T10 which may reflect a tiny subdural hematoma. Will repeat MRI short term, possibly tomorrow. - N/V resolved at this point - continue antiemetics prn - Cont daily miralax and increase dulcolax 10 mg BID today, pt uses 5 mg AC at home regularly. No BM x 4 days and tolerating PO intake. Can make prn once has BM. - PT/OT planning to do Passive ROM today and work with the pt HTN HLD CAD s/p multiple stents Paroxsysmal afib - Continue on [employer] meds: metoprolol succ 100 mg QAM. Pt is not on a statin therapy. - Resume plavix today. Hypokalemia - resolved DENICE - Pt is supposed to wear CPAP at home but does not tolerate it- therefore refusing to wear this currently. On room air DM II - Not on home insulin or oral medications - A1C= 4.8 - ISS with accuchecks while on solumedrol infusion GERD - Cont ranitidine - patient likely the patient frequently wakes up with foul taste in mouth, and vomits due to GERD - monitor. DVT ppx: no chemical anticoagulation, nonambulatory at this point, monitor closely. CODE STATU: Full code Disposition: From home, lives with , KAYLEE to assist with dc planning, per primary team Son, Chuck and daughter updated, all questions and concerns were addressed.
[2017-11-25 08:52] LABS: HEMATOCRIT 33.6 % (42-52); HEMOGLOBIN 11.5 g/dL (14.0-18.0); MEAN CELL VOLUME 89.8 fL (80-100); MEAN CORPUSCULAR HEMOGLOBIN 30.7 pg (25-34); MEAN CORPUSCULAR HGB CONC 34.2 g/dl (32-36); PLATELET COUNT 162 K/uL (130-400); RED CELL DISTRIBUTION WIDTH CV 13.9 % (11.5-14.5); RED CELL DISTRIBUTION WIDTH SD 45.7 fL (36.4-46.3); WHITE BLOOD COUNT 11.47 K/uL (4.8-10.8)
[2017-11-25 09:17] LABS: CALCIUM 8.2 mg/dl (8.5-10.1); CREATININE 0.78 mg/dl (0.60-1.40); POTASSIUM 3.5 mmol/L (3.5-5.1)
--- NOTE | 2017-11-25 09:39 | Neurology Progress Notes ---
Neurology Progress Note Date of Service Nov 25, 2017. Subjective Sensation and movement is about the same compared to yesterday. No new neurological symptoms MRI of the thoracic spine report and images were reviewed by myself. Patient does have some increased signal in the T10/T11 area of the spinal cord. To me looks more concentric and does not seem to necessarily fit a vascular territory. My opinion as this may be more consistent with edema rather than a spinal stroke, although spinal ischemia cannot 100% be ruled out. Also noted on MRI is a tiny T9/T10 hematoma Objective Date Time Temp Pulse Resp B/P (MAP) Pulse Ox O2 Delivery O2 Flow Rate FiO2 11/25/17 08:20 Room Air 11/25/17 00:00 36.5 71 18 132/73 (92) 94 Room Air 11/24/17 20:30 36.6 74 18 136/70 (92) 96 Room Air 11/24/17 20:00 Room Air 11/24/17 16:15 36.4 84 18 163/87 (112) 93 Room Air Last 24 Hours Test 11/24/17 12:08 11/24/17 17:04 11/24/17 20:48 11/25/17 08:31 Bedside Glucose 188 mg/dl 156 mg/dl 183 mg/dl 126 mg/dl Test 11/25/17 08:37 White Blood Count 11.47 K/uL Red Blood Count 3.74 M/uL Hemoglobin 11.5 g/dL Hematocrit 33.6 % Mean Corpuscular Volume 89.8 fL Mean Corpuscular Hemoglobin 30.7 pg Mean Corpuscular Hemoglobin Concent 34.2 g/dl RDW Standard Deviation 45.7 fL RDW Coefficient of Variation 13.9 % Platelet Count 162 K/uL Mean Platelet Volume 10.0 fL Sodium Level 138 mmol/L Potassium Level 3.5 mmol/L Chloride Level 103 mmol/L Carbon Dioxide Level 31 mmol/L Anion Gap 5.0 mmol/L Blood Urea Nitrogen 19 mg/dl Creatinine 0.78 mg/dl Est Creatinine Clear Calc Drug Dose 125.7 ml/min Estimated GFR () 112.1 Estimated GFR (Non- 96.7 BUN/Creatinine Ratio 24.8 Random Glucose 126 mg/dl Calcium Level 8.2 mg/dl Exam: Gen.: Patient is alert and laying in bed, in no acute distress. HEENT: Normocephalic /atraumatic, no scleral icterus Extremities: No gross deformities or rashes noted Neurological examination: Mental status: Patient is alert and oriented x3. Attention and concentration normal for the situation. Good fund of knowledge. Remote and recent memory intact. Speech is fluent without any dysarthria or aphasia noted Cranial nerve: No facial asymmetry noted. Hearing grossly intact to voice. Strength: 5/5 both proximal and distally in bilateral upper extremities. Abdominal muscle movement appeared to be intact.1-2/5 toe movement and dorsiflexion/planter flex. Otherwise lower extremity strength bilaterally 0/5. Sensation: Grossly intact to light touch in bilateral upper extremities. Sensory level around around T11/12. Absolute no ability to feel in the lower extremities. Gait could not be tested secondary to lower extremity paralysis Current Inpatient Medications Medications (Trade) Dose Ordered Sig/Berta Route Start Time Stop Time Status Last Admin Dose Admin Promethazine HCl 12.5 mg/Sodium Chloride 50.5 ml @ 202 mls/hr Q6H PRN IV 11/22/17 16:45 12/22/17 16:44 Ondansetron HCl (Zofran Inj) 4 mg Q6H PRN IV 11/22/17 16:45 12/22/17 16:44 11/23/17 05:47 4 MG Metoclopramide HCl (Reglan Inj) 10 mg Q6H PRN IV 11/22/17 16:45 12/22/17 16:44 11/23/17 08:32 10 MG Lorazepam (Ativan Tab) 0.5 mg Q8H PRN PO 11/22/17 16:45 12/22/17 16:44 Lorazepam 0.5 mg/ Syringe 0.25 ml @ 1 mls/min Q8H PRN IV 11/22/17 16:45 12/22/17 16:44 Pneumococcal Polysaccharide Vaccine 1 ea PRN PRN N/A 11/22/17 16:45 12/22/17 16:44 Influenza Virus Vacc Triv Types A&B 1 ea PRN PRN N/A 11/22/17 16:45 12/22/17 16:44 Polyethylene (Miralax Powder Packet) 17 gm Q6 PO 11/24/17 06:00 12/24/17 05:59 11/24/17 18:07 17 GM Bisacodyl (Dulcolax Supp) 10 mg DAILY PRN AL 11/22/17 16:45 12/22/17 16:44 Magnesium Hydroxide (Milk Of Magnesia Susp) 30 ml DAILY PRN PO 11/22/17 16:45 12/22/17 16:44 Hydromorphone HCl (Dilaudid Inj) 0.5-1mg prn moder... Q3H PRN IV 11/23/17 06:00 12/07/17 05:59 11/24/17 16:53 1 MG Acetaminophen (Tylenol Tab) 1,000 mg Q8H PRN PO 11/22/17 16:45 12/22/17 16:44 Acetaminophen 100 ml @ 400 mls/hr Q8H PRN IV 11/22/17 16:45 12/22/17 16:44 Naloxone HCl (Narcan Inj) 0.1 mg Q5M PRN IV 11/22/17 16:45 12/22/17 16:44 Senna/Docusate Sodium (Senokot S Tab) 2 tab HS PO 11/22/17 21:00 12/22/17 20:59 11/24/17 20:55 2 TAB Sodium Biphosphate/ Sodium Phosphate (Fleet Enema) 132 ml ONE PRN AL 11/22/17 16:45 12/22/17 16:44 Hydroxyzine HCl (Vistaril Tab) 25 mg Q8H PRN PO 11/22/17 16:45 12/22/17 16:44 Al Hydroxide/Mg Hydroxide (Maalox Susp) 30 ml Q6H PRN PO 11/22/17 16:45 12/22/17 16:44 Famotidine (Pepcid Tab) 20 mg Q12 PRN PO 11/22/17 16:45 12/22/17 16:44 11/24/17 22:00 20 MG Cetirizine HCl (zyrTEC TAB) 10 mg QAM PO 11/23/17 09:00 12/23/17 08:59 11/24/17 08:55 10 MG Cyclobenzaprine HCl (Flexeril Tab) 10 mg TID PO 11/22/17 21:00 12/22/17 20:59 11/24/17 20:56 10 MG Fluticasone Propionate (Flonase Nasal [place]) 1 sprays DAILY PRN BHAVIK 11/22/17 16:45 12/22/17 16:44 Gabapentin (Neurontin Cap) 300 mg BID PO 11/22/17 21:00 12/22/17 20:59 11/24/17 20:55 300 MG Hydrochlorothiazide (Hydrochlorothiazide Tab) 50 mg QAM PO 11/23/17 09:00 12/23/17 08:59 11/24/17 08:53 50 MG Acetaminophen/ Hydrocodone Bitart ([place] 10/325 Tab) 1 tab Q4H PRN PO 11/23/17 06:00 12/07/17 05:59 11/24/17 21:03 1 TAB Hyoscyamine Sulfate (Levsin Tab) 0.125 mg TID PO 11/22/17 21:00 12/22/17 20:59 11/24/17 20:55 0.125 MG Metoprolol Succinate (Toprol Xl Tab) 100 mg QAM PO 11/23/17 09:00 12/23/17 08:59 11/24/17 08:54 100 MG Prochlorperazine Maleate (Compazine Tab) 10 mg HS PO 11/22/17 21:00 12/22/17 20:59 11/24/17 20:55 10 MG Ranitidine HCl (zANTac TAB) 150 mg QPM PO 11/22/17 21:00 12/22/17 20:59 11/24/17 20:55 150 MG Temazepam (Restoril Cap) 15 mg HS PO 11/22/17 21:00 12/22/17 20:59 11/24/17 20:55 15 MG Enalapril Maleate (Vasotec Tab) 20 mg BID PO 11/22/17 21:00 12/22/17 20:59 11/24/17 20:55 20 MG Insulin Aspart (novoLOG ASPART) SLIDING SCALE If C... ACHS SC 11/22/17 21:00 12/22/17 20:59 11/24/17 21:53 1 UNITS Glucose (Glucose 40% Gel) 15-30 GRAMS 15 GRAMS... UD PRN PO 11/22/17 19:30 12/22/17 19:29 Glucose (Glucose Chew Tab) 4-8 Tablets 4 Tabl... UD PRN PO 11/22/17 19:30 12/22/17 19:29 Dextrose (Dextrose 50% 50ML Syringe) 25-50ML OF 50% DW IV FOR... UD PRN IV 11/22/17 19:30 12/22/17 19:29 Glucagon (Glucagon Inj) 1 mg UD PRN SQ 11/22/17 19:30 12/22/17 19:29 Polyethylene (Miralax Powder Packet) 17 gm DAILY PO 11/24/17 13:30 12/24/17 13:29 Bisacodyl (Dulcolax Tab) 10 mg DAILY PO 11/24/17 13:30 12/24/17 13:29 11/24/17 13:43 10 MG Pitavastatin (Livalo) 4 mg HS PO 11/24/17 21:00 12/24/17 20:59 11/24/17 20:56 4 MG Doxazosin Mesylate (Cardura Tab) 1 mg HS PO 11/24/17 21:00 12/24/17 20:59 11/24/17 21:00 1 MG Clopidogrel Bisulfate (plAVix TAB) 75 mg QAM PO 11/25/17 09:00 12/25/17 08:59 Impression This is a 62-year-old male with numbness and complete paralysis of the bilateral lower extremities with a sensory level around T11/T12. Symptoms occurred postop after T9 through T12 decompression and fusion with T12 hardware removal November 22. Likely symptoms secondary to postoperative spinal cord edema , but cannot completely rule out spinal stroke Plan Overall prognosis is uncertain. I'm hopeful that signal changes on MRI are more indicative of edema which could improve. My opinion is signal changes more consistent with edema rather than a spinal stroke, although spinal ischemia cannot 100% be ruled out. Physical therapy evaluation and treatment as indicated postop. Consider repeating MRI T-spine in 1-2days to make sure no worsening of T9/T10 subdural hematoma Thank you for allowing me to participate in this patient's care. If there is any questions or concerns, fell free to call/page me
[2017-11-25] MEDS: CETIRIZINE HCL 10 MG TAB PO SCH (10:10)
[2017-11-25] MEDS: ENALAPRIL MALEATE 10 MG TAB PO SCH ×2 (10:10→21:35)
[2017-11-25] MEDS: METOPROLOL SUCC 50MG EXT REL TAB PO SCH (10:10)
[2017-11-25] MEDS: GABAPENTIN 300 MG CAP PO SCH ×2 (10:10→21:35)
[2017-11-25] MEDS: HYDROCHLOROTHIAZIDE 50 MG TAB PO SCH (10:11)
[2017-11-25] MEDS: HYOSCYAMINE SULFATE 0.125 MG SL TAB PO SCH ×3 (10:11→21:40)
[2017-11-25] MEDS: CYCLOBENZAPRINE HCL 10 MG TAB PO SCH ×3 (10:11→21:34)
[2017-11-25] MEDS: INSULIN ASPART 100 UNITS/ML 3 ML PEN SC SCH ×4 (10:12→21:00)
[2017-11-25] MEDS: CLOPIDOGREL BISULFATE 75 MG TAB PO SCH (10:19)
[2017-11-25] MEDS: HYDROCODONE/ACETAMI 10/325 TAB PO PRN (10:20)
[2017-11-25] MEDS ORDERED: ENOXAPARIN 40 MG/0.4 ML SYR SQ SCH (10:45)
[2017-11-25] MEDS ORDERED: NURSING VERBAL MED ORDER ONE ×2 (11:00→13:15)
--- NOTE | 2017-11-25 12:07 | Progress Note ---
Progress Note Date of Service Nov 25, 2017. Progress Note Patient is seen today with his family at the bedside. States his pain is well- controlled. Denies any headache nausea or vomiting. He is eating relatively well. On exam his neuro status appears to be plateaued. He still has some motor function to the left lower extremity but absent on the right. Sensory he feels is steadily improving. Plan at this time we will initiate Lovenox maintain the ROME drain. We will be consult [facility] for possible transfer after the weekend.
--- NOTE | 2017-11-25 12:18 | Clinical Documentation Query ---
ROSALBA Mcpherosn : CLINICAL DOCUMENTATION QUERY Patient remains without purposeful movement or sensation of bilateral legs and distal extremities since surgery. Patient was recieving and IV infusion of Solumedrol. No intraoperative complications noted. As appropriate, consider documentation as suggested below. Thank you. In your clinical opinion is this patient being managed for: ( x ) Likely Spinal cord edema, a complication of care The medical record reflects the following clinical findings, treatment, and risk factors. Clinical Indicators: As above Treatment: As above Risk Factors: Performed intraoperative procedures as documented. Please clarify and document your clinical opinion in the progress notes and discharge summary. Terms such as "probable", "suspected", "likely", "questionable", "possible", or "still to be ruled out" are acceptable. IF IN AGREEMENT, YOU MUST DOCUMENT ABOVE DIAGNOSTIC STATEMENT IN DAILY PROGRESS NOTES AND DISCHARGE SUMMARY. This document is not part of the patient's record. Thank You, Lenny Blanco, RN [phone]
[2017-11-25] MEDS: LANSOPRAZOLE 30MG CAP PO SCH (13:50)
[2017-11-25] MEDS: HYDROmorphone INJ 0.5 MG/0.5 ML SYR IV PRN (14:07)
[2017-11-25 15:20] VITALS: BP 152/81; PULSE 70; TEMP 36.4; O2SAT 96
[2017-11-25] MEDS: ENOXAPARIN 30 MG/0.3 ML SYR SQ SCH (18:10)
[2017-11-25] MEDS ORDERED: POTASSIUM CHLORIDE 20 MEQ TABCR PO SCH (21:00)
[2017-11-25] MEDS ORDERED: PANTOprazole SOD 40 MG TAB PO SCH (21:00)
[2017-11-25] MEDS: BISACODYL 5 MG TABEC PO SCH (21:32)
[2017-11-25] MEDS: TEMAZEPAM 15 MG CAP PO SCH (21:32)
[2017-11-25] MEDS: DOXAZosin TAB 1 MG TAB PO SCH (21:33)
[2017-11-25] MEDS: PROCHLORPERAZINE MALEATE 10 MG TAB PO SCH (21:33)
[2017-11-25] MEDS: RANITIDINE HCL 150 MG TAB PO SCH (21:36)
[2017-11-25] MEDS: DOCUSATE SODIUM/SENNA 50/8.6MG TAB PO SCH (21:37)
[2017-11-25] MEDS: PITAVASTATIN CALCIUM 4 MG TAB PO SCH (21:39)
[2017-11-25] MEDS: POTASSIUM CHLORIDE 20 MEQ TABCR PO SCH (21:39)
[2017-11-25 23:25] VITALS: BP 142/76; PULSE 74; TEMP 36.5; O2SAT 95
[2017-11-26] MEDS: POLYETHYLENE (MIRALAX) 17 GM PACK PO SCH ×5 (05:29→23:23)
[2017-11-26] MEDS: ENOXAPARIN 30 MG/0.3 ML SYR SQ SCH (05:30)
[2017-11-26 07:09] VITALS: BP 158/91; PULSE 70; TEMP 36.6; O2SAT 95
[2017-11-26] MEDS: INSULIN ASPART 100 UNITS/ML 3 ML PEN SC SCH (08:00)
--- NOTE | 2017-11-26 08:26 | Hospitalist Progress Note ---
Hospitalist Progress Note Date of Service Nov 26, 2017. Subjective Pt evaluation today including: conversation w/ patient, conversation w/ family , physical exam, chart review, lab review, review of studies Pain: Mild low back pain PO Intake: Good Voiding: cooley catheter in place The patient was seen and examined this morning. Pt reports doing ok today. He is having mild lower back pain. Pt is unsure if his ability to feel in the lower legs is improved today. He has still not been able to have a BM, despite feeling the sensation like he needs to. ROS: Point ROS reviewed and negative other than listed per HPI. Objective Vital Signs Date Time Temp Pulse Resp B/P (MAP) Pulse Ox O2 Delivery O2 Flow Rate FiO2 11/26/17 07:09 36.6 70 19 158/91 (113) 95 Room Air 11/25/17 23:40 Room Air 11/25/17 23:25 36.5 74 18 142/76 (98) 95 Room Air 11/25/17 16:30 Room Air 11/25/17 15:20 36.4 70 18 152/81 (104) 96 Room Air Physical Exam Notes: General: + Awake, no apparent distress, obese Head: Normocephalic, atraumatic ENT: PERRL, EOMI, no pharyngeal exudate, mucous membranes moist Chest: on room air, Clear to auscultation, no adventitious breath sounds Cardiac: Regular rate and rhythm, + systolic murmur grade III/, no JVD, normal peripheral pulses, good capillary refill Abdominal: NABS x 4 quadrants, soft, nontender to palpation, no rebound, guarding or tenderness Extremities: Normal inspection, no peripheral edema or erythema, calfs nontender to palpation Psych: Normal mood and affect Neuro: AAO x 3, Pt has sensation to light touch in the lateral dorsal aspect and bottom of the left foot below the great toe, sensation to upper lateral left and right thigh, increased sensation to the right plantar region of foot. Pt can plantar flex with the left foot. Speech is clear Laboratory Results Last 24 Hours Test 11/25/17 08:31 11/25/17 08:37 11/25/17 12:04 11/25/17 17:15 Bedside Glucose 126 mg/dl 187 mg/dl 95 mg/dl White Blood Count 11.47 K/uL Red Blood Count 3.74 M/uL Hemoglobin 11.5 g/dL Hematocrit 33.6 % Mean Corpuscular Volume 89.8 fL Mean Corpuscular Hemoglobin 30.7 pg Mean Corpuscular Hemoglobin Concent 34.2 g/dl RDW Standard Deviation 45.7 fL RDW Coefficient of Variation 13.9 % Platelet Count 162 K/uL Mean Platelet Volume 10.0 fL Sodium Level 138 mmol/L Potassium Level 3.5 mmol/L Chloride Level 103 mmol/L Carbon Dioxide Level 31 mmol/L Anion Gap 5.0 mmol/L Blood Urea Nitrogen 19 mg/dl Creatinine 0.78 mg/dl Est Creatinine Clear Calc Drug Dose 125.7 ml/min Estimated GFR () 112.1 Estimated GFR (Non- 96.7 BUN/Creatinine Ratio 24.8 Random Glucose 126 mg/dl Calcium Level 8.2 mg/dl Test 11/25/17 20:42 Bedside Glucose 102 mg/dl Assessment and Plan This is a 62 yo M with PMHx of CAD s/p multiple cardiac stents ( last in [facility] x 2 at [facility]), parosysmal afib, smyptomatic bradycardia s/p dual chamber pacemaker insertion, HTN, HLD, DM II, DENICE, GERD, morbid obesity, who is now s/p T9-T12 decompression/fusion, T12 hardware removal, interbody fusion at T11-T12 by Dr. Armstrong on 11/22/17. The patient lacked sensation below groin s/p surgical procedure and was started on Solumedrol protocol x 24 hrs. S/p T9 - T12 decompression fusion, T12 hardware removal - Pain management with dilaudid job compositor, flexeril on board for muscle spasm - Solumedrol 30 mg/kg as a loading dose followed by a solumedrol infusion of 5.4 mg/kg/ml x 23 hours - completed. - Neuro consulted - appreciate recs - Repeat MRI T-spine W/WO contrast11/24 showed T10-T11 hyperintensity which could reflect cord edema or short segment cord infarct. Also a showed a 3.5 x 0.2 cm T1 and T2 hyperintense intracanalicular fluid collection at level of T9- T10 which may reflect a tiny subdural hematoma. Consider repeat MRI today or tomorrow - per Dr. Almaraz - N/V resolved at this point - continue antiemetics prn - Cont daily miralax and increase dulcolax 10 mg BID today, pt uses 5 mg AC at home regularly. No BM x 5 days and tolerating PO intake. Consider more aggressive bowel regimen if the pt does not have BM if loss of bowel function thought to be involved - PT/OT on board- planning for dc to [facility] after the weekend. 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 Pt is not on a statin therapy. - Resume plavix today. - Decrease lovenox 40 mg daily for DVT ppx - pt was not on anticoagulation for afib prior to admission, remote history and is atrially paced -follows in [place]. Hx femoral pseudoaneurysm Hx of AAA - Follow with Dr. Bey as an outpatient - reports these as stable. Hypokalemia - resolved DENICE - Pt is supposed to wear CPAP at home but does not tolerate it- therefore refusing to wear this currently. On room air DM II - Not on home insulin or oral medications - A1C= 4.8 - ISS with accuchecks can be d/c'd since off solumedrol x 48 hrs and glucose remains stable.. GERD - Cont ranitidine - patient likely the patient frequently wakes up with foul taste in mouth, and vomits due to GERD - monitor. DVT ppx: Lovenox daily, nonambulatory at this point CODE STATU: Full code Disposition: From home, lives with , KAYLEE to assist with dc planning to after weekend, per primary team updated at bedside, all questions and concerns were addressed. At this time medicine will sign off. Thank you for allowing us to participate in Mr. Snyder's care. Please do not hesitate to call with questions or concerns.
[2017-11-26] MEDS: HYDROmorphone INJ 0.5 MG/0.5 ML SYR IV PRN ×3 (08:28→17:00)
[2017-11-26] MEDS: CYCLOBENZAPRINE HCL 10 MG TAB PO SCH ×3 (09:49→20:21)
[2017-11-26] MEDS: POTASSIUM CHLORIDE 20 MEQ TABCR PO SCH ×2 (09:50→20:23)
[2017-11-26] MEDS: GABAPENTIN 300 MG CAP PO SCH ×2 (09:51→20:20)
[2017-11-26] MEDS: LANSOPRAZOLE 30MG CAP PO SCH (09:52)
[2017-11-26] MEDS: HYOSCYAMINE SULFATE 0.125 MG SL TAB PO SCH ×3 (09:52→20:21)
[2017-11-26] MEDS: CLOPIDOGREL BISULFATE 75 MG TAB PO SCH (09:55)
[2017-11-26] MEDS: CETIRIZINE HCL 10 MG TAB PO SCH (09:55)
[2017-11-26] MEDS: METOPROLOL SUCC 50MG EXT REL TAB PO SCH (09:58)
[2017-11-26] MEDS: ENALAPRIL MALEATE 10 MG TAB PO SCH ×2 (09:58→20:22)
[2017-11-26] MEDS: HYDROCHLOROTHIAZIDE 50 MG TAB PO SCH (09:59)
[2017-11-26] MEDS: BISACODYL 5 MG TABEC PO SCH ×2 (10:01→20:28)
[2017-11-26] MEDS ORDERED: NURSING VERBAL MED ORDER ONE (11:00)
[2017-11-26] MEDS: HYDROCODONE/ACETAMI 10/325 TAB PO PRN (11:11)
--- NOTE | 2017-11-26 13:29 | Progress Note ---
Progress Note Date of Service Nov 26, 2017. Progress Note Back pain is controlled this time. Vital signs are stable. ROME drain decreasing appropriate. On exam he is simple bed. He is talking with his family. He exhibits marked decreased sensation motor deficits to the right lower extremity. He demonstrates some maintenance of proprioception in beginnings of motor function involving the left lower extremity. Assessment status post thoracic decompression fusion preplan this time we will change his Lovenox to once daily. We will most likely discontinue the drain Wednesday or Wednesday. We'll plan for possible rehabilitation next week.
[2017-11-26 15:50] VITALS: BP 147/91; PULSE 70; TEMP 36.7; O2SAT 95
[2017-11-26] MEDS: DOCUSATE SODIUM/SENNA 50/8.6MG TAB PO SCH (20:19)
[2017-11-26] MEDS: RANITIDINE HCL 150 MG TAB PO SCH (20:19)
[2017-11-26] MEDS: PITAVASTATIN CALCIUM 4 MG TAB PO SCH (20:22)
[2017-11-26] MEDS: DOXAZosin TAB 1 MG TAB PO SCH (20:24)
[2017-11-26] MEDS: PROCHLORPERAZINE MALEATE 10 MG TAB PO SCH (20:24)
[2017-11-26] MEDS: TEMAZEPAM 15 MG CAP PO SCH (20:28)
[2017-11-26 20:30] VITALS: BP 128/77; PULSE 71
[2017-11-26 23:00] VITALS: BP 110/71; PULSE 79; TEMP 36.8; O2SAT 93
[2017-11-27] MEDS: POLYETHYLENE (MIRALAX) 17 GM PACK PO SCH ×5 (06:10→23:57)
[2017-11-27 07:27] VITALS: BP 149/85; PULSE 71; TEMP 36.7; O2SAT 96
[2017-11-27] MEDS: CYCLOBENZAPRINE HCL 10 MG TAB PO SCH ×3 (08:31→22:23)
[2017-11-27] MEDS: POTASSIUM CHLORIDE 20 MEQ TABCR PO SCH ×2 (08:31→22:23)
[2017-11-27] MEDS: HYOSCYAMINE SULFATE 0.125 MG SL TAB PO SCH ×3 (08:32→22:22)
[2017-11-27] MEDS: CLOPIDOGREL BISULFATE 75 MG TAB PO SCH (08:32)
[2017-11-27] MEDS: LANSOPRAZOLE 30MG CAP PO SCH (08:32)
[2017-11-27] MEDS: GABAPENTIN 300 MG CAP PO SCH ×2 (08:32→22:23)
[2017-11-27] MEDS: CETIRIZINE HCL 10 MG TAB PO SCH (08:33)
[2017-11-27] MEDS: ENOXAPARIN 40 MG/0.4 ML SYR SQ SCH (08:33)
[2017-11-27] MEDS: METOPROLOL SUCC 50MG EXT REL TAB PO SCH (08:34)
[2017-11-27] MEDS: ENALAPRIL MALEATE 10 MG TAB PO SCH ×2 (08:34→22:22)
[2017-11-27] MEDS: HYDROCHLOROTHIAZIDE 50 MG TAB PO SCH (08:35)
[2017-11-27] MEDS: BISACODYL 5 MG TABEC PO SCH ×2 (08:38→22:26)
[2017-11-27] MEDS: HYDROmorphone INJ 0.5 MG/0.5 ML SYR IV PRN ×3 (08:39→23:32)
[2017-11-27 08:40] VITALS: BP 126/79; PULSE 78
--- NOTE | 2017-11-27 09:32 | Progress Note ---
Progress Note Date of Service Nov 27, 2017. Progress Note Patient is denying any discomfort today. Continues to note sensation numbness tingling the right lower extremity. He is experiencing some modest increased motor function to the right foot. He has not had a bowel movement as of yet. He is having flatus. On exam his strength and bed he appears comfortable. Sensory exam is unchanged bilaterally. He was able to elicit some motion of the right toes. This is a new finding. Assessment status post thoracic decompression and fusion. Plan at this time we are considering [facility] transfer next week. We will DC the drain and change the dressing today. He is to get to the chair as tolerated.
[2017-11-27] MEDS: HYDROCODONE/ACETAMI 10/325 TAB PO PRN ×2 (12:21→18:39)
[2017-11-27 15:48] VITALS: BP 128/81; PULSE 75; TEMP 36.4; O2SAT 94
[2017-11-27] MEDS: DOXAZosin TAB 1 MG TAB PO SCH (22:21)
[2017-11-27] MEDS: PROCHLORPERAZINE MALEATE 10 MG TAB PO SCH (22:21)
[2017-11-27] MEDS: DOCUSATE SODIUM/SENNA 50/8.6MG TAB PO SCH (22:22)
[2017-11-27] MEDS: RANITIDINE HCL 150 MG TAB PO SCH (22:24)
[2017-11-27] MEDS: PITAVASTATIN CALCIUM 4 MG TAB PO SCH (22:26)
[2017-11-27] MEDS: TEMAZEPAM 15 MG CAP PO SCH (22:26)
[2017-11-27 22:51] VITALS: BP 134/81; PULSE 76; TEMP 36.9; O2SAT 94
[2017-11-28] MEDS: POLYETHYLENE (MIRALAX) 17 GM PACK PO SCH ×5 (05:36→23:43)
[2017-11-28 07:51] VITALS: BP 114/75; PULSE 80; TEMP 37; O2SAT 96
[2017-11-28] MEDS: LANSOPRAZOLE 30MG CAP PO SCH (08:24)
[2017-11-28] MEDS: CYCLOBENZAPRINE HCL 10 MG TAB PO SCH ×3 (08:25→21:22)
[2017-11-28] MEDS: HYOSCYAMINE SULFATE 0.125 MG SL TAB PO SCH ×3 (08:26→21:23)
[2017-11-28] MEDS: GABAPENTIN 300 MG CAP PO SCH ×2 (08:26→21:21)
[2017-11-28] MEDS: HYDROCHLOROTHIAZIDE 50 MG TAB PO SCH (08:26)
[2017-11-28] MEDS: POTASSIUM CHLORIDE 20 MEQ TABCR PO SCH ×2 (08:26→21:23)
[2017-11-28] MEDS: CETIRIZINE HCL 10 MG TAB PO SCH (08:27)
[2017-11-28] MEDS: METOPROLOL SUCC 50MG EXT REL TAB PO SCH (08:27)
[2017-11-28] MEDS: CLOPIDOGREL BISULFATE 75 MG TAB PO SCH (08:27)
[2017-11-28] MEDS: ENOXAPARIN 40 MG/0.4 ML SYR SQ SCH (08:28)
[2017-11-28] MEDS: ENALAPRIL MALEATE 10 MG TAB PO SCH ×2 (08:28→21:22)
[2017-11-28] MEDS: BISACODYL 5 MG TABEC PO SCH ×2 (08:34→21:15)
--- NOTE | 2017-11-28 12:39 | Progress Note ---
Progress Note Date of Service Nov 28, 2017. Progress Note Patient's pain is controlled. He expresses as anxiousness to begin a rehabilitation at [facility]. Vital signs are stable. On exam he is in chair at the bedside. His thoracic incision is clean is no erythema. She has modest swelling in the upper thoracic region mostly consistent with subcutaneous edema related to bed rest. Lower extremity exam neural function is unchanged. Plan at this time we will begin the process for transition to [facility] hopefully this week.
[2017-11-28] MEDS: HYDROmorphone INJ 0.5 MG/0.5 ML SYR IV PRN ×2 (12:44→18:48)
[2017-11-28] MEDS: HYDROCODONE/ACETAMI 10/325 TAB PO PRN ×2 (14:05→21:15)
--- NOTE | 2017-11-28 14:36 | DIAGNOSTIC IMAGING REPORT ---
BILATERAL LOWER EXTREMITY VENOUS DOPPLER CLINICAL HISTORY: rule out dvt COMPARISON STUDY: Left lower extremity venous Doppler May 20, 2009 and bilateral lower extremity venous Doppler August 06, 2008. TECHNIQUE: Sonography of the deep venous system of the bilateral lower extremities was performed. Compression and augmentation were evaluated. FINDINGS: The bilateral common femoral, superficial femoral and popliteal veins were compressible. Augmentation was normal. Flow was shown within the deep calf vessels. IMPRESSION: No evidence of deep venous thrombus within the bilateral lower extremities. Electronically signed by: Meir Vasquez M.D. 11/28/2017 2:35 PM Dictated Date/Time: 11/28/2017 2:34 PM
[2017-11-28 15:30] VITALS: BP 109/72; PULSE 79; TEMP 36.8; O2SAT 94
[2017-11-28] MEDS: SOD PHOSPHATE/SOD BIPHOSPHATE ENEMA 132 ML BTL PR PRN (17:47)
[2017-11-28 21:20] VITALS: BP 126/77; PULSE 88
[2017-11-28] MEDS: TEMAZEPAM 15 MG CAP PO SCH (21:20)
[2017-11-28] MEDS: PITAVASTATIN CALCIUM 4 MG TAB PO SCH (21:21)
[2017-11-28] MEDS: RANITIDINE HCL 150 MG TAB PO SCH (21:21)
[2017-11-28] MEDS: PROCHLORPERAZINE MALEATE 10 MG TAB PO SCH (21:23)
[2017-11-28] MEDS: DOXAZosin TAB 1 MG TAB PO SCH (21:23)
[2017-11-28] MEDS: DOCUSATE SODIUM/SENNA 50/8.6MG TAB PO SCH (21:24)
[2017-11-28 23:00] VITALS: BP 104/73; PULSE 99; TEMP 37; O2SAT 93
[2017-11-29] MEDS: POLYETHYLENE (MIRALAX) 17 GM PACK PO SCH ×3 (05:57→12:08)
[2017-11-29 06:10] VITALS: BP 111/69; PULSE 86; TEMP 36.7; O2SAT 94
[2017-11-29] MEDS: HYDROCODONE/ACETAMI 10/325 TAB PO PRN ×2 (07:34→17:14)
[2017-11-29] MEDS: BISACODYL 5 MG TABEC PO SCH ×2 (07:34→21:14)
[2017-11-29] MEDS: CYCLOBENZAPRINE HCL 10 MG TAB PO SCH ×3 (07:35→21:10)
[2017-11-29] MEDS: POTASSIUM CHLORIDE 20 MEQ TABCR PO SCH ×2 (07:35→21:10)
[2017-11-29] MEDS: LANSOPRAZOLE 30MG CAP PO SCH (07:36)
[2017-11-29] MEDS: HYOSCYAMINE SULFATE 0.125 MG SL TAB PO SCH ×3 (07:36→21:10)
[2017-11-29] MEDS: GABAPENTIN 300 MG CAP PO SCH ×2 (07:36→21:09)
[2017-11-29] MEDS: ENOXAPARIN 40 MG/0.4 ML SYR SQ SCH (07:37)
[2017-11-29] MEDS: CLOPIDOGREL BISULFATE 75 MG TAB PO SCH (07:37)
[2017-11-29] MEDS: CETIRIZINE HCL 10 MG TAB PO SCH (07:37)
[2017-11-29 07:38] VITALS: BP 97/62; PULSE 85
[2017-11-29] MEDS: METOPROLOL SUCC 50MG EXT REL TAB PO SCH (07:39)
[2017-11-29] MEDS: ENALAPRIL MALEATE 10 MG TAB PO SCH ×2 (07:40→21:09)
[2017-11-29] MEDS: HYDROCHLOROTHIAZIDE 50 MG TAB PO SCH (07:40)
[2017-11-29] MEDS ORDERED: NURSING VERBAL MED ORDER ONE (12:15)
[2017-11-29 12:17] VITALS: BP 106/68
[2017-11-29] MEDS: HYDROmorphone INJ 0.5 MG/0.5 ML SYR IV PRN ×2 (13:24→19:51)
--- NOTE | 2017-11-29 13:54 | Progress Note ---
Progress Note Date of Service Nov 29, 2017. Progress Note Patient's back pain is controlled today. His vital signs are stable. Results of his Doppler exam are negative for any evidence of DVT. His exam reveals some spontaneous motion of the bilateral lower extremities. Today I am appreciating more motor function spontaneity on the right lower extremity than previously. Assessment status post thoracic decompression and fusion. Plan this time we are waiting approval for [facility]. He is medically stable for transfer when possible.
[2017-11-29] MEDS ORDERED: HYDR-4079 PO (13:56)
--- NOTE | 2017-11-29 13:57 | Discharge Instructions ---
Discharge Instructions Date of Service Nov 29, 2017. Admission Reason for Admission: Spinal Stenosis Discharge Discharge Diagnosis / Problem: thoracic spinal stenosis Discharge Goals Goal(s): Improve function Activity Recommendations Activity Limitations: per Instructions/Follow-up section . Instructions / Follow-Up Instructions / Follow-Up ACTIVITY RECOMMENDATIONS: SELF CARE INSTRUCTIONS AFTER THORACIC/LUMBAR FUSIONS 1. You may walk to your tolerance. It is good exercise for your legs and back. Expect some back and intermittent leg aches and pains. 2. You may perform "counter-top" level activities (make a sandwich, antonio with a project, etc.). 3. No bending or lifting of more than 10 pounds or back twisting of any nature (roll like a log when turning in bed). 4. You may ride in a car for 20-30 minutes at a time. No driving until after your first visit with your doctor. 5. Frequent changes of position and restricting sitting to 30 minutes at a time will help limit the amount of back spasms and stiffness you may experience. 6. You may discontinue the use of ambulatory aids (cane, crutches, etc.) once your strength and confidence allow. 7. You may senior accounting associate the shower and let water strike your incision when you arrive home at least once daily. Do not take a tub bath, sit in a hot tub or go into a swimming pool until after your first recheck in the office. SPECIAL CARE INSTRUCTIONS: VERY IMPORTANT TO READ AND REVIEW A. Your surgical incision has been closed with a cosmetic suture under the skin that will dissolve in about 6 weeks. In 14 days, you can use a pair of clean scissors and cut the suture that is left outside of the skin at the ends of your incision. 1. The small skin tapes can be removed 7 days after surgery if they have not fallen off by that point. 2. You may keep the wound open to air as much as possible to promote healing after post-op day number 5 unless told otherwise by your doctor. 3. If you think the wound looks like it is becoming infected (redness or worsening drainage) and/or you are experiencing fever, chill or worsening back pain and muscle spasms, contact the office so that we may evaluate you as soon as possible. B. Complications are uncommon, but please contact us if you have any signs or symptoms of: 1. wound infection (fever higher than 102.5 degrees F, redness, separation of wound, drainage, or increasing pain from the incision) 2. blood clots in legs (pain, swelling, redness and warmth in legs) 3. urinary tract infection (fever higher than 102.5 degrees F, burning upon urination or increased frequency of urination) 4. nerve problems (inability to walk on your toes or heels, numbness, loss of bowel or bladder control) 5. any other symptoms that concern you C. Please call the office at if you have any concerns or questions about your operation or recovery. D. No smoking! Smoking drastically decreases the chance of a solid fusion. E. Do not take any anti-inflammatory medications (Indocin, Advil, Motrin, Aspirin, Naprosyn, etc.) as these may inhibit the chance of a solid fusion. Tylenol is okay to take for pain. MANAGING PAIN AFTER SPINAL SURGERY 1. Narcotic medication is intended for short-term use and will be provided for surgical pain. Surgical pain usually lasts for a period of 4-6 weeks. Narcotic medication includes Percocet, Vicodin, Darvocet, Tylenol #3 or Lortab. 2. Longer-term pain is more appropriately treated with non-narcotic medication such as Tylenol ES. 3. Muscle spasm is not appropriately treated with narcotics. Muscle relaxers such as Soma, Flexeril or Skelaxin can be used along with Tylenol ES. 4. Remember that we all live with some "aches and pains". This is not unusual or uncommon after an injury or as we get older. a. Back pain is expected and may include muscle spasms for 4 to 6 weeks after surgery. The pain should gradually improve. If the pain worsens for no apparent reason, please contact the office. b. Intermittent leg pain may also be experienced and should not be concerned about unless it worsens for no apparent reason. If so, please contact the office. 5. We will provide appropriate medication within the normal guidelines of their prescribed use. We will also be very cautious and aware of potential abuse and extended duration of patients' medication needs. a. Pain medications are for your comfort and to assist with sleep and rest so that the tissue can heal. They are not provided in order to return to normal activity and should not be used through the day. To do so or worsening pain at night can result from ongoing tissue damage and development of tolerance to the prescribed medicine. 6. Please allow 2-3 days to process refills. Prescriptions will not be mailed but must be picked up at the office. FOLLOW UP VISIT: Keep your scheduled follow-up appointment. Any questions, please call the office at . Current Hospital Diet Patient's current hospital diet: Regular Diet Discharge Diet Recommended Diet: Regular Diet Procedures Procedures Performed: #1 removal instrumentation T12. 2 extrusion of fusion T12-L1. 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 #4 posterior spinal fusion T9-T10 T11-T12. #5 this posterior segment instrumentation T9 T10 T11. #6 number effusion T 11 T12. #7 plates of the cage 8 x 22 mm T11 12. #8 placement of locally harvested morcellized autograft in the posterior gutters. #Physician in physical sponge and Master graft the posterior gutters and osteotome bone graft in the interbody space. Pending Studies Studies pending at discharge: no Laboratory Results Hemoglobin A1c Test 11/23/17 06:31 Range/Units Estimated Average Glucose 91 mg/dl Hemoglobin A1c 4.8 4.5-5.6 % Medical Emergencies . Who to Call and When: Medical Emergencies: If at any time you feel your situation is an emergency, please call 911 immediately. . Non-Emergent Contact Non-Emergency issues call your: Primary Care Provider . "Provider Documentation" section prepared by Barry Almaraz. . VTE Core Measure Inpt VTE Proph given/why not?: Enoxaparin (Lovenox)FREDY, TEliza Roman, SCD's
[2017-11-29 15:35] VITALS: BP 119/77; PULSE 95; TEMP 36.8; O2SAT 92
[2017-11-29 21:04] VITALS: BP 122/79; PULSE 98
[2017-11-29] MEDS: DOCUSATE SODIUM/SENNA 50/8.6MG TAB PO SCH (21:09)
[2017-11-29] MEDS: RANITIDINE HCL 150 MG TAB PO SCH (21:09)
[2017-11-29] MEDS: DOXAZosin TAB 1 MG TAB PO SCH (21:10)
[2017-11-29] MEDS: PROCHLORPERAZINE MALEATE 10 MG TAB PO SCH (21:10)
[2017-11-29] MEDS: PITAVASTATIN CALCIUM 4 MG TAB PO SCH (21:11)
[2017-11-29] MEDS: TEMAZEPAM 15 MG CAP PO SCH (21:14)
[2017-11-29 23:10] VITALS: BP 115/75; PULSE 104; TEMP 37.4; O2SAT 93
[2017-11-30] MEDS: HYDROmorphone INJ 0.5 MG/0.5 ML SYR IV PRN ×3 (04:24→14:02)
[2017-11-30 07:25] VITALS: BP 137/76; PULSE 89; TEMP 36.7; O2SAT 95
[2017-11-30] MEDS: BISACODYL 5 MG TABEC PO SCH (09:04)
[2017-11-30] MEDS: CYCLOBENZAPRINE HCL 10 MG TAB PO SCH ×2 (09:04→13:56)
[2017-11-30] MEDS: POTASSIUM CHLORIDE 20 MEQ TABCR PO SCH (09:05)
[2017-11-30] MEDS: HYDROCHLOROTHIAZIDE 50 MG TAB PO SCH (09:05)
[2017-11-30] MEDS: GABAPENTIN 300 MG CAP PO SCH (09:06)
[2017-11-30] MEDS: POLYETHYLENE (MIRALAX) 17 GM PACK PO SCH (09:06)
[2017-11-30] MEDS: HYOSCYAMINE SULFATE 0.125 MG SL TAB PO SCH ×2 (09:06→13:56)
[2017-11-30] MEDS: LANSOPRAZOLE 30MG CAP PO SCH (09:07)
[2017-11-30] MEDS: METOPROLOL SUCC 50MG EXT REL TAB PO SCH (09:09)
[2017-11-30] MEDS: CETIRIZINE HCL 10 MG TAB PO SCH (09:09)
[2017-11-30] MEDS: ENALAPRIL MALEATE 10 MG TAB PO SCH (09:09)
[2017-11-30] MEDS: ENOXAPARIN 40 MG/0.4 ML SYR SQ SCH (09:11)
[2017-11-30] MEDS: CLOPIDOGREL BISULFATE 75 MG TAB PO SCH (09:11)
[2017-11-30 10:10] VITALS: BP 149/91; PULSE 50; O2SAT 99
[2017-11-30] MEDS: SOD PHOSPHATE/SOD BIPHOSPHATE ENEMA 132 ML BTL PR PRN (11:13)
[2017-11-30 12:23] VITALS: BP 149/91; PULSE 50; TEMP 36.7; O2SAT 99
--- NOTE | 2017-11-30 16:59 | Discharge Summary ---
Orthopedic Discharge Summary Admission Date/Reason Nov 22, 2017 at 14:00 Spinal Stenosis. Discharge Date/Disposition Nov 30, 2017 Rehab Diagnosis Principal Diagnosis: Thoracic spinal stenosis with neurologic deficit Admission Physical Exam As per Admitting History & Physical. Hospital Course Patient underwent thoracic decompression and fusion on November 22. Postoperatively he developed marked paralysis the bilateral extremities. He was stable otherwise. Spent the first evening in the PACU and then transferred to the orthopedic floor for the remainder of his stay. Throughout his stay was initiated physical therapy occupational therapy. He was demonstrating some subtle signs of motor function involving the lower extremities. His incision was clean dry and intact and healing appropriate. The drain was removed postop day 5. He was simply transferred to [facility] for continued rehabilitation. Discharge orders and instructions can be found on the chart for further review. Discharge Instructions Please refer to the electronic Patient Visit Report (Discharge Instructions) for additional information.
--- NOTE | 2017-12-28 13:34 | EDITING REQUIRED CODING QUERY ---
CODING QUERY To promote full compliance with coding requirements relating to patient care, provider participation is requested in all cases of dental equipment repairer uncertainty. Please assist us with the question(s) below: Coding Question(s): 1. Please clarify below, in your clinical opinion, regarding documentation in record and Discharge Summary that postoperatively the patient developed marked paralysis in the bilateral extremities. ( x ) This was a postoperative complication ( ) This was not a postoperative complication - was an expected outcome 2. Please clarify below, in your clinical opinion regarding documentation by Neurology of likely symptoms secondary to postoperative spinal cord edema, but cannot completely rule out spinal stroke. ( x ) Spinal Cord Edema and possible Spinal Stroke were possible and were postoperative complications ( ) Spinal Cord Edema and possible Spinal Stroke were ruled out ( ) Spinal Cord Edema and possible Spinal Stroke were possible but were not postoperative complications ( ) Other: Specify Likely symptoms secondary to postoperative spinal cord edema, but cannot completely rule out spinal stroke Plan Physician's Response(s): Thank you Navya Abdalla Principal Diagnosis: "_that condition established after study, to be chiefly responsible for occasioning the admission of the patient to the hospital for care." Co-Existing Principal Diagnosis: "_when two or more diagnoses equally meet the criteria for principal diagnosis as determined by the circumstances of admission, diagnostic work up, and/or therapy provided, and the Alphabetic Index, Tabular List, or another coding guideline does not provide sequencing direction, any one of the diagnoses may be sequenced first." "When the physician has documented what appears to be a current diagnosis in the body of the record, but has not included the diagnosis in the final diagnostic statement, the physician should be asked whether the diagnosis should be added." (Source Coding [facility] 2 QTR90. p3-4)
== END 2017-11-30 15:00 | DRG 453 ==
LOC: C.ACU 11:26 → C.3E 14:00 → ENRESERV 18:13 → C.2T 23:22 → ENRESERV 11-23 13:30 → C.3E 11-23 13:59
PROVIDERS: ADMIT Orthopaedic Surgery Orthopaedic Surgery of the Spine; ATTEND Orthopaedic Surgery Orthopaedic Surgery of the Spine
PROC: 0RT90ZZ Resection of Thoracic Vertebral Disc, Open Approach (ICD-10-PCS; principal; 2017-11-22 13:45)
PROC: 0RG7071 Fusion of 2 to 7 Thoracic Vertebral Joints with Autologous Tissue Substitute, Posterior Approach, Posterior Column, Open Approach (ICD-10-PCS; principal; 2017-11-22 13:45)
PROC: 0RG60AJ Fusion of Thoracic Vertebral Joint with Interbody Fusion Device, Posterior Approach, Anterior Column, Open Approach (ICD-10-PCS; principal; 2017-11-22 13:45)
PROC: 0RP604Z Removal of Internal Fixation Device from Thoracic Vertebral Joint, Open Approach (ICD-10-PCS; principal; 2017-11-22 13:45)
DX: M48.04 Spinal stenosis, thoracic region (principal); G95.19 Other vascular myelopathies; G95.11 Acute infarction of spinal cord (embolic) (nonembolic); G97.82 Other postprocedural complications and disorders of nervous system; G95.89 Other specified diseases of spinal cord; G82.20 Paraplegia, unspecified; Z68.41 Body mass index [BMI] 40.0-44.9, adult; E87.6 Hypokalemia; I25.10 Atherosclerotic heart disease of native coronary artery without angina pectoris; I48.0 Paroxysmal atrial fibrillation; E11.9 Type 2 diabetes mellitus without complications; I25.2 Old myocardial infarction; K21.9 Gastro-esophageal reflux disease without esophagitis; G47.33 Obstructive sleep apnea (adult) (pediatric); E78.5 Hyperlipidemia, unspecified; E66.01 Morbid (severe) obesity due to excess calories; Z51.81 Encounter for therapeutic drug level monitoring; Z79.899 Other long term (current) drug therapy; Z79.82 Long term (current) use of aspirin; Z95.5 Presence of coronary angioplasty implant and graft; Z95.0 Presence of cardiac pacemaker; Z98.1 Arthrodesis status; Z87.891 Personal history of nicotine dependence; Z83.3 Family history of diabetes mellitus; Z82.49 Family history of ischemic heart disease and other diseases of the circulatory system; Z84.1 Family history of disorders of kidney and ureter; Y83.8 Other surgical procedures as the cause of abnormal reaction of the patient, or of later complication, without mention of misadventure at the time of the procedure; Y92.239 Unspecified place in hospital as the place of occurrence of the external cause; Y99.8 Other external cause status; I10 Essential (primary) hypertension; E78.00 Pure hypercholesterolemia, unspecified; K21.0 Gastro-esophageal reflux disease with esophagitis

== ENCOUNTER → 2017-12-03 | Outpatient (CLI) | payer OTHER ==
[~2017-12-03] MED LIST changes: -ACET-1693 PO; +ACET325T96 PO; -ASPCH81X PO; -ATROPINE SULFATE 0.1 MG/ML 5ML SYR IV PRN; -CEFAZOLIN 3000MG IV PUSH 15 ML IV SCH; -CLOP1TAB15 PO; -EpHEDrine SULFATE INJ 50 MG/ML AMP IV PRN; -HYDROmorphone INJ 1 MG/ML SYR IV PRN; -LACTATED RINGER'S 1000ML 1,000 ML IV SCH; +NURSING VERBAL MED ORDER ONE; -ONDANSETRON INJ 2 MG/ML 2 ML VIAL IV PRN; -RANI150T85 PO; +ZNTT/150 PO
--- NOTE | 2017-12-03 16:26 | DIAGNOSTIC IMAGING REPORT ---
THORACIC SPINE WITHOUT CLINICAL HISTORY: 62 years-old Male presenting with PAIN, RECENT SURGERY. TECHNIQUE: Multisequence, multiplanar MR imaging of the thoracic spine was performed without the use of intravenous contrast. IV contrast: None. COMPARISON: 11/24/2017. FINDINGS: Localizer images: Unremarkable. Extensive posterior bilateral transpedicular screw and marquise fixation extending from T9 to S1 skipping the T12 and L5 levels. Interbody spacer is noted at T11-12 as on prior exam. Laminectomy defect at T11, unchanged. Partially visualized anterior cervical discectomy and fusion of C6-7. Extensive T2 hyperintensity in the thoracolumbar operative bed and superficial edema in the posterior subcutaneous tissues. A laminar fluid collection is also evident, which is persistent. Extensive hardware results in susceptibility artifact that limits diagnostic sensitivity at the operative levels. Allowing for this, normal thoracic kyphosis preserved. Vertebral bodies maintain normal height and alignment. Few benign hemangiomas evident, for example at T7 and T8. Bone marrow signal intensity at the operative levels is grossly normal allowing for susceptibility artifact degradation. Allowing for limited visualization, no epidural or subdural collection on the current exam. The spinal cord demonstrates abnormal signal intensity at the level of T9-10, best demonstrated on axial images. This is centrally located and at the same level as on prior exam. The nonoperative levels demonstrate no evidence of neural foraminal or spinal canal narrowing. IMPRESSION: 1. Extensive postsurgical changes of the thoracolumbar spine with T9-S1 fusion, skipping the T12 and L5 levels. Laminectomy defect at T11. Extensive signal abnormality in the operative bed may relate to exuberant edema and/or granulation tissue. 2. Superficial fluid collection in the subcutaneous tissue of the operative bed, likely seroma. Sterility of the collection cannot be confirmed. 3. Persistent signal abnormality in the central spinal cord at T9-10, which raises concern for spinal cord infarct or edema. 4. The examination is limited due to extensive susceptibility artifact arising from the hardware at the operative levels. Electronically signed by: Leobardo Chow M.D. 12/03/2017 4:24 PM Dictated Date/Time: 12/03/2017 4:13 PM
== END | disposition home or self-care (01) ==
LOC: C.MRI 15:04
PROVIDERS: ATTEND Physical Medicine & Rehabilitation
DX: R52 Pain, unspecified (principal)

== ENCOUNTER → 2018-06-01 | Outpatient (CLI) | payer OTHER ==
[~2018-06-01] MED LIST changes: +ACET-1693 PO; -ACET325T96 PO; -NURSING VERBAL MED ORDER ONE; +PROC10TA PO; -PROC1TAB5 PO; +RANI150T85 PO; -ZNTT/150 PO
--- NOTE | 2018-06-01 17:21 | ECHOCARDIOGRAM REPORT ---
*NOTICE TO RECEIVING REPUBLICAN AGENCY This information is strictly Confidential and protected under [place] law. [place] law prohibits you from making any further disclosure of this information unless further disclosure is expressly permitted by the written consent of the person to whom it pertains or is authorized by law. A general authorization for the release of medical or other information is not sufficient for this purpose. Hospital accepts no responsibility if the information is made available to any other person, INCLUDING THE PATIENT. Interpretation Summary * Name: TAWNYA BUENO Study Date: 06/01/2018 12:32 PM BP: 136/92 mmHg * Patient Location: [facility] HR: 73 * : 1955 (M/d/yyyy) Gender: Male Height: 67 in * Age: 62 yrs Ethnicity: [place] Weight: 245 lb * Ordering Physician: Michael Wood * Referring Physician: Michael Wood * Performed By: Malia Garcia RDCS * * Reason For Study: Hypertension, History of Coronary Artery Disease, Atrial Fibrillation * BSA: 2.2 m2 * -- Conclusions -- * 1. Normal LV size. Mild concentric LVH. * 2. LVEF 50-55%. Inferior wall hypokinesis. * 3. Mildly dilated RV, normal function. * 4. Moderate aortic regurgitation. * 5. Mild mitral regurgitation. * 6. Borderline dilated aortic root (4.1 cm). * 7. Grade I diastolic dysfunction. * 8. Compared with prior study on 02/15/2017: No significant changes. Procedure Details * A complete two-dimensional transthoracic echocardiogram was performed (2D, M-mode, Doppler and color flow Doppler). Left Ventricle * The left ventricle is grossly normal size. * There is mild concentric left ventricular hypertrophy. * Ejection Fraction = 50-55%. * There is mild inferior wall hypokinesis. Right Ventricle * There is a pacemaker lead in the right ventricle. * The right ventricle is mildly dilated. * The right ventricular systolic function is qualitatively normal. Atria * The left atrial size is normal. * Right atrial size is normal. * No ASD detected; PFO is not assessed. Mitral Valve * The mitral valve is grossly normal. * There is no mitral valve stenosis. * There is mild mitral regurgitation. Tricuspid Valve * There is trace tricuspid regurgitation. * Right ventricular systolic pressure is normal. Aortic Valve * No hemodynamically significant valvular aortic stenosis. * Moderate aortic regurgitation. Pulmonic Valve * The pulmonary valve is inadequately visualized, but the Doppler data is adequate for interpretation. * Pulmonic stenosis is absent. * There is no significant pulmonary regurgitation. Great Vessels * Borderline dilated ascending aorta. Pericardium/Pleural * There is no pericardial effusion. Great Vessels * Normal inferior vena cava size and collapsability with sniff indicates a normal right atrial pressure of 3 mmHg Left Ventricular Diastolic Function * Grade I diastolic dysfunction, (abnormal relaxation pattern). MMode 2D Measurements and Calculations IVSd 1.1 cm IVSs 1.4 cm LVIDd 5.0 cm LVIDs 3.6 cm LVPWd 1.3 cm LVPWs 1.6 cm IVS/LVPW 0.88 FS 27.5 % EDV(Teich) 115.7 ml ESV(Teich) 54.2 ml EF(Teich) 53.2 % EDV(cubed) 121.5 ml ESV(cubed) 46.4 ml EF(cubed) 61.8 % % IVS thick 27.5 % % LVPW thick 24.7 % LV mass(C)d 227.3 grams LV mass(C)dI 103.1 grams/m\S\2 LV mass(C)s 200.0 grams LV mass(C)sI 90.7 grams/m\S\2 SV(Teich) 61.5 ml SI(Teich) 27.9 ml/m\S\2 SV(cubed) 75.1 ml SI(cubed) 34.1 ml/m\S\2 Ao root diam 3.5 cm Ao root area 9.8 cm\S\2 ACS 1.9 cm LA dimension 3.6 cm asc Aorta Diam 4.2 cm LA/Ao 1.0 LVAd ap4 46.4 cm\S\2 LVLd ap4 9.9 cm EDV(MOD-sp4) 180.2 ml EDV(sp4-el) 183.8 ml LVAs ap4 28.7 cm\S\2 LVLs ap4 8.7 cm ESV(MOD-sp4) 84.6 ml ESV(sp4-el) 80.4 ml EF(MOD-sp4) 53.0 % EF(sp4-el) 56.3 % LVAd ap2 44.7 cm\S\2 LVLd ap2 10.7 cm EDV(MOD-sp2) 163.8 ml EDV(sp2-el) 158.7 ml LVAs ap2 27.3 cm\S\2 LVLs ap2 8.9 cm ESV(MOD-sp2) 76.9 ml ESV(sp2-el) 71.4 ml EF(MOD-sp2) 53.1 % EF(sp2-el) 55.0 % LVLd %diff 7.1 % EDV(MOD-bp) 177.0 ml LVLs %diff 2.0 % ESV(MOD-bp) 81.3 ml EF(MOD-bp) 54.1 % SV(MOD-sp4) 95.6 ml SI(MOD-sp4) 43.4 ml/m\S\2 SV(MOD-sp2) 87.0 ml SI(MOD-sp2) 39.5 ml/m\S\2 SV(MOD-bp) 95.7 ml SI(MOD-bp) 43.4 ml/m\S\2 SV(sp4-el) 103.5 ml SI(sp4-el) 46.9 ml/m\S\2 SV(sp2-el) 87.3 ml SI(sp2-el) 39.6 ml/m\S\2 Doppler Measurements and Calculations MV E max vikash 56.1 cm/sec MV A max vikash 70.8 cm/sec MV E/A 0.79 MV dec time 0.23 sec Ao V2 max 179.1 cm/sec Ao max PG 12.9 mmHg Ao max PG (full) 7.9 mmHg AI max vikash 367.7 cm/sec AI max PG 54.2 mmHg AI dec slope 240.2 cm/sec\S\2 AI P1/2t 448.4 msec LV V1 max PG 5.0 mmHg LV V1 max 112.0 cm/sec PA V2 max 76.7 cm/sec PA max PG 2.4 mmHg TR max vikash 209.7 cm/sec
== END | disposition home or self-care (01) ==
LOC: C.CPL 12:56
PROVIDERS: ATTEND Family Medicine
DX: I10 Essential (primary) hypertension (principal); I25.10 Atherosclerotic heart disease of native coronary artery without angina pectoris; Z95.5 Presence of coronary angioplasty implant and graft

== ENCOUNTER 2018-12-13 07:00 | Inpatient (IN) ==
--- NOTE | 2018-12-06 13:57 | PAT Medication Instructions ---
Medication Instructions Date of Service December 06, 2018 Home Medications acetaminophen 325 mg PO Q6H NEEDED amlodipine [Norvasc] 5 mg PO QAM aspirin [Aspir-81] 81 mg PO DAILY baclofen 20 mg PO QID calcium carbonate-vitamin D3 [Calcium 500 + D] 1 tab PO BID cetirizine [Zyrtec] 10 mg PO QAM clopidogrel [Plavix] 75 mg PO DAILY coenzyme Q10 [CoQ-10] 200 mg PO QPM docusate sodium 100 mg PO TID doxazosin 1 mg PO HS fluticasone [Flonase] 1 spray INTRANASAL DAILY NEEDED glycerin (adult) [Suppository] 1 supp [place] DAILY NEEDED hydrochlorothiazide 12.5 mg PO QAM hydrocodone-acetaminophen 1 tab PO QID NEEDED lansoprazole [Prevacid] 30 mg PO QAM meclizine 12.5 mg PO TID NEEDED metoprolol succinate 100 mg PO QAM mirabegron [Myrbetriq] 50 mg PO QAM multivitamin 1 tab PO QAM nitroglycerin [Nitrostat] 1 tab SUBLINGUAL NEEDED pitavastatin calcium [Livalo] 4 mg PO HS potassium chloride 20 meq PO BID pregabalin [Lyrica] 200 mg PO BID prochlorperazine maleate 10 mg PO HS ramipril 10 mg PO HS ranitidine HCl 150 mg PO HS temazepam 15 mg PO HS NEEDED vitamin Y58-zomsx acid 1 tab PO QAM duloxetine 60 mg PO PM famotidine 20 mg PO HS lidocaine [Lidocaine Pain Relief] 2 patch TOPICAL DAILY sennosides 8.6 mg PO Lunch trazodone 0.5 tab PO HS Continue as directed nitroglycerin [Nitrostat] 1 tab SUBLINGUAL NEEDED ASK your prescriber and surgeon clopidogrel [Plavix] 75 mg PO DAILY STOP taking 2 weeks before surgery coenzyme Q10 [CoQ-10] 200 mg PO QPM STOP taking 24 hours before surgery lidocaine [Lidocaine Pain Relief] 2 patch TOPICAL DAILY Lidocaine Ointment DO NOT take the morning of surgery baclofen 20 mg PO QID calcium carbonate-vitamin D3 [Calcium 500 + D] 1 tab PO BID cetirizine [Zyrtec] 10 mg PO QAM docusate sodium 100 mg PO TID fluticasone [Flonase] 1 spray INTRANASAL DAILY NEEDED glycerin (adult) [Suppository] 1 supp [place] DAILY NEEDED hydrochlorothiazide 12.5 mg PO QAM meclizine 12.5 mg PO TID NEEDED mirabegron [Myrbetriq] 50 mg PO QAM multivitamin 1 tab PO QAM potassium chloride 20 meq PO BID pregabalin [Lyrica] 200 mg PO BID vitamin L29-avjcm acid 1 tab PO QAM sennosides 8.6 mg PO Lunch Take morning of surgery With a small sip of water, OTHERWISE NOTHING TO EAT OR DRINK AFTER MIDNIGHT: acetaminophen 325 mg PO Q6H NEEDED amlodipine [Norvasc] 5 mg PO QAM aspirin [Aspir-81] 81 mg PO DAILY hydrocodone-acetaminophen 1 tab PO QID NEEDED lansoprazole [Prevacid] 30 mg PO QAM metoprolol succinate 100 mg PO QAM Take evening before surgery acetaminophen 325 mg PO Q6H NEEDED baclofen 20 mg PO QID calcium carbonate-vitamin D3 [Calcium 500 + D] 1 tab PO BID docusate sodium 100 mg PO TID doxazosin 1 mg PO HS hydrocodone-acetaminophen 1 tab PO QID NEEDED meclizine 12.5 mg PO TID NEEDED pitavastatin calcium [Livalo] 4 mg PO HS potassium chloride 20 meq PO BID pregabalin [Lyrica] 200 mg PO BID prochlorperazine maleate 10 mg PO HS ramipril 10 mg PO HS temazepam 15 mg PO HS NEEDED duloxetine 60 mg PO PM famotidine 20 mg PO HS sennosides 8.6 mg PO Lunch trazodone 0.5 tab PO HS Other Notes If you have any questions please call us at [phone] or [phone] or [phone] or [phone]
--- NOTE | 2018-12-06 14:03 | Anesthesiology Consultation ---
Date of Service December 06, 2018 Assessment & Plan (1) Encounter for pre-operative examination: Chart Review Chart Review: Acceptable Risk for Surgery and Patient seen in Pre Admission Testing Consults Requested cardiac (Nehemiah Springer PA-C (12/09)) Patient was seen by cardio on 12/09 who stated that "Patient is a low to intermediate cardiac risk for his upcoming spinal surgery. Recommend that patient take his usual doses of Metoprolol Succinate ER and Aspirin on the morning of surgery with sips of water. Patient may hold Plavix for 5 to 7 days leading up to surgery -- and should restart Plavix after surgery as soon as hemostasis allows. There is no need for further cardiac workup at this time." Teaching & Discussion Pre-Anesthesia Teaching/Discussion Notes: Instructed NPO after midnight before surgery, except medications with 15 cc of water. Medication instructions provided according to the PAT guidelines. History Surgery Operation Date: 12/13/18 09:05 Proposed Procedures p T9-T11 Removal of Hardware, T5-T11 Decompression and Fusion - Barry Almaraz DO Height/Weight Height: 5 ft 7 in Weight: 140.614 kg Allergies Allergy/AdvReac Type Severity Reaction Status Date / Time loratadine Allergy Severe BREATHING Verified 12/05/18 15:36 DIFFICULTY shellfish derived Allergy Severe throat Verified 12/05/18 15:36 gets scratchy diphenhydramine Allergy Intermediate HIVES Verified 12/05/18 15:36 Macrolide Antibiotics Allergy Intermediate E-MYCIN=HIVES; Verified 12/05/18 15: 36 "MYCINS"--JAUNDICE Fish Containing Products Allergy Mild THROAT Verified 12/05/18 15:36 SWELLS rofecoxib AdvReac Severe CARDIAC SX Verified 12/05/18 15:36 oxycodone AdvReac Intermediate TERRIBLE Verified 12/05/18 15:36 DREAMS,DISORIENTATION Medications Home Medications Medication Instructions Recorded Confirmed Last Taken acetaminophen 325 mg PO Q6H PRN 12/05/18 12/05/18 Unknown amlodipine [Norvasc] 5 mg PO QAM 12/05/18 12/05/18 Unknown aspirin [Aspir-81] 81 mg PO DAILY 12/05/18 12/05/18 Unknown baclofen 20 mg PO QID 12/05/18 12/05/18 Unknown calcium carbonate-vitamin D3 1 tab PO BID 12/05/18 12/05/18 Unknown [Calcium 500 + D] cetirizine [Zyrtec] 10 mg PO QAM 12/05/18 12/05/18 Unknown clopidogrel [Plavix] 75 mg PO DAILY 12/05/18 12/05/18 Unknown coenzyme Q10 [CoQ-10] 200 mg PO QPM 12/05/18 12/05/18 Unknown docusate sodium 100 mg PO TID 12/05/18 12/05/18 Unknown doxazosin 1 mg PO HS 12/05/18 12/05/18 Unknown fluticasone [Flonase Allergy 1 spray INTRANASAL DAILY PRN 12/05/18 12/05/18 Unknown Relief] glycerin (adult) [Suppository 1 supp [place] DAILY PRN 12/05/18 12/05/18 Unknown Adult] hydrochlorothiazide 12.5 mg PO QAM 12/05/18 12/05/18 Unknown hydrocodone-acetaminophen 1 tab PO QID PRN 12/05/18 12/05/18 Unknown lansoprazole [Prevacid] 30 mg PO QAM 12/05/18 12/05/18 Unknown meclizine 12.5 mg PO TID PRN 12/05/18 12/05/18 Unknown metoprolol succinate 100 mg PO QAM 12/05/18 12/05/18 Unknown mirabegron [Myrbetriq] 50 mg PO QAM 12/05/18 12/05/18 Unknown multivitamin 1 tab PO QAM 12/05/18 12/05/18 Unknown nitroglycerin [Nitrostat] 1 tab SUBLINGUAL UD PRN 12/05/18 12/05/18 Unknown pitavastatin calcium [Livalo] 4 mg PO HS 12/05/18 12/05/18 Unknown potassium chloride 20 meq PO BID 12/05/18 12/05/18 Unknown pregabalin [Lyrica] 200 mg PO BID 12/05/18 12/05/18 Unknown prochlorperazine maleate 10 mg PO HS 12/05/18 12/05/18 Unknown ramipril 10 mg PO HS 12/05/18 12/05/18 Unknown temazepam 15 mg PO HS PRN 12/05/18 12/05/18 Unknown vitamin Q60-mfypj acid 1 tab PO QAM 12/05/18 12/05/18 Unknown duloxetine 60 mg PO PM 12/06/18 12/06/18 Unknown famotidine 20 mg PO HS 12/06/18 12/06/18 Unknown lidocaine [Lidocaine Pain Relief] 2 patch TOPICAL DAILY 12/06/18 12/06/18 Unknown sennosides 8.6 mg PO LD 12/06/18 12/06/18 Unknown trazodone 0.5 tab PO HS 12/06/18 12/06/18 Unknown Past Medical History Medical History Aortic aneurysm MONITORED WITH DR. KURTZ Atrial fibrillation Bilateral leg paresthesia FOLLOW THORACIC INTERBODY FUSION NOV 2017 CAD (coronary artery disease) STENTS X6 GERD (gastroesophageal reflux disease) Hyperlipidemia Hypertension Myocardial Infarction PER MEDICAL RECORD. S/P PCI X 6 STENTS, LAST 2 IN [facility] Neurogenic bladder Neurogenic bowel Osteoarthritis Pacemaker HX OF SYMPTOMATIC SINUS BRADYCARDIA. PT FOLLOWS WITH DR. CONTRERAS Paralysis PARLYSIS/PARATHESIA OF B/L LOWER EXTREMITIES FOLLOW LOWER THORACIC INTERBODY FUSION NOV 2017. Self-catheterizes urinary bladder Q3H. USES 16FRENCH Sleep apnea DOES NOT WEAR CPAP Past Surgical History Surgical History Fusion of spine THORACIC NOV 2017 - 8.0 ETT, MAC #3, Secured @ 22cm. Smooth induction with atraumatic intubation. Grade 1 view. H/O sinus surgery History of arthroscopic surgery of shoulder X2 (LEFT) History of cardiac cath TOTAL OF 6 STENTS, FOLLOWS WITH DR. CONTRERAS History of cardiac pacemaker History of cholecystectomy History of gastric bypass GASTRIC SLEEVE PROCEDURE History of total knee replacement BILATERAL S/P UPPP (uvulopalatopharyngoplasty) S/P cervical spinal fusion c5-6 Past Anesthesia History No Hx of Anesthesia Complications and No Family Hx of Anesthesia Complications History of PONV No Motion Sickness Screening History of Motion Sickness: Yes Social History Smoking Status: Former smoker Smoking cigarettes per day: Smoked 1ppd x 15 years Do You Dip or Chew Tobacco: No Smoking End Date: Quit 32 years ago Hx Alcohol Use: No alcohol intake frequency: holidays/special occasions only Hx Substance Use: No substance use type: does not use Exercise / Class Metabolic Activity IV < 2 Limit ADL/Bedbound Review of Systems Patient denies chest pain, shortness of breath, dyspnea on exertion, joint pain , reflux, cough, wheezing, palpitations. +Joint pain (back, hands) Physical Exam Vital Signs BP: 147/82 P: 71 R: 16 T: 98.0 SPO2: 95% on RA Constitutional + morbidly obese ENMT Thyromental Distance: < 3.5 Finger Breadths (3) Mallampati Class: I Mouth / Teeth: 2 1. s/p UPPP Neck normal visual inspection, trachea midline and + thick neck Respiratory normal respiratory effort Auscultation: lungs clear to auscultation bilaterally Cardiovascular Rate/Rhythm: regular rate and regular rhythm Heart Sounds: + murmur (3/6) Vessels: no carotid bruit Psychiatric Orientation: alert and oriented x 3 lethargic Testing Electrocardiogram Date: 08/01/18 Atrial paced rhythm @ 72bpm. Moderate voltage criteria for LVH, may be normal variant. When compared with ECG of 11/22/17, T wave inversion no longer evident in inferior leads. Other Testing Chest CT 09/19/18: No axillary, supraclavicular, or mediastinal lymphadenopathy. Evaluation of the pamela limited without intravenous contrast. Allowing for nongated technique, the ascending aorta measures 4.3 cm, previously 4.2 cm. Normal heart size. Coronary artery calcification. No pericardial or pleural effusion. Postsurgical changes of the stomach along the greater curvature. Small hiatal hernia. Mild stool burden throughout normal caliber colon. Cholecystectomy clips. On lung windows, no pneumothorax. Central airways patent. No focal infiltrate or nodule. PACER CHECK 11/01/18: [employer] A2DR01 Battery Remainin-11.5 years Implant Date: 05/22/14 % Pacing: A - 91.8, RV - 0.0 Mode: AAIR <=> DDDR Ventricular High Rate Episodes #41 Laboratory Results Blood Type O Positive 12/06/18 14:40 Antibody Screen NEGATIVE 12/06/18 14:40 PT 10.7 Seconds (9.0-12.0) 12/06/18 14:40 INR 1.1 (0.9-1.1) 12/06/18 14:40 APTT 28.7 Seconds (21.0-31.0) 12/06/18 14:40 Urine Color Yellow 12/06/18 Unknown Urine Appearance Clear (Clear) 12/06/18 Unknown Urine pH 7.0 (4.5-7.5) 12/06/18 Unknown Ur Specific [place] 1.018 (1.000-1.030) 12/06/18 Unknown Urine Protein Negative (Negative) 12/06/18 Unknown Urine Glucose (UA) Negative (Negative) 12/06/18 Unknown Urine Ketones Negative (Negative) 12/06/18 Unknown Urine Nitrite Positive (Negative) H 12/06/18 Unknown Ur Leukocyte Esterase 2+ (Negative) H 12/06/18 Unknown Urine WBC (Auto) 10-30 /hpf (0-5) H 12/06/18 Unknown Urine RBC (Auto) 0-4 /hpf (0-4) 12/06/18 Unknown U Hyaline Cast (Auto) 5-10 /lpf (0-5) H 12/06/18 Unknown U Epithel Cells (Auto) >30 /lpf (0-5) H 12/06/18 Unknown Urine Bacteria (Auto) 4+ (Negative) H 12/06/18 Unknown 12/06/18 Unknown Urine Culture - Final Urine,Straight Cath Escherichia coli Laboratory Tests 11/03/18 11/03/18 14:42 14:42 WBC 5.64 Hgb 13.6 L Hct 41.2 L Plt Count 213 Sodium 140 Potassium 3.6 Chloride 108 H Carbon Dioxide 28 BUN 24 H Creatinine 0.79 Glucose 76
[2018-12-06 15:24] LABS: INR 1.1 (0.9-1.1); Partial Thromboplastin Ratio 1.1; Partial Thromboplastin Time 28.7 Seconds (21.0-31.0); Prothrombin Time 10.7 Seconds (9.0-12.0)
[2018-12-06 15:44] LABS: Appearance Urine Clear (Clear); Bacteria Urine Automated 4+ (Negative); Bilirubin Urine Negative (Negative); Color Urine Yellow; Epithelial Cell Urine Auto >30 /lpf (0-5); Glucose Urine UA Negative (Negative); Ketones Urine Negative (Negative); Leukocyte Esterase Urine 2+ (Negative); Nitrite Urine Positive (Negative); Protein Urine Negative (Negative); Specific Gravity Urine 1.018 (1.000-1.030); Urobilinogen Urine Negative (Negative)
[~2018-12-13 07:00] MED LIST changes: -ACET-1693 PO; +ACETAMINOPHEN 500 MG TAB PO SCH; -CALC-440 PO; +CEFAZOLIN 3000MG 65 ML IV SCH; -CETI10TA10 PO; -COEN1CAP17 PO; -CYAN100020 PO; -CYCL10TA6 PO; +CeleBREX 200 MG CAP PO SCH; -DOCU100C31 PO; -DOXAZOSIN PO; -FLUO20CA20 PO; -FLUT0.15 NAE; -GABA-112 PO; +GABAPENTIN 300 MG x 2 PO SCH; -HYDR-4079 PO; -HYDR50TA3 PO; -HYOS1TAB PO; -LANS30CA41 PO; -LIVALO PO; +LR 15ML/HR IV SCH; -METO200T32 PO; -MULT-506 PO; -NITROGLYCERIN SL; -POTA1TAB97 PO; -PROC10TA PO; -RAMI10CA PO; -RANI150T85 PO; -TEMA15CA4 PO; -VITAMIN D2 PO
[2018-12-13] MEDS ORDERED: fentaNYL citrate 100 MCG/2 ML VIAL ONE ×6 (08:10→12:15)
[2018-12-13] MEDS ORDERED: MIDAZOLAM HCL 1 MG/ML 2ML VIAL ONE (08:11)
[2018-12-13] MEDS ORDERED: HYDROmorphone INJ 2 MG/ML SYR/VIAL ONE ×3 (08:11→11:19)
--- NOTE | 2018-12-13 08:39 | History & Physical Bridge Note ---
Date of Service December 13, 2018 History & Physical Bridge Note I have examined the patient, reviewed the History & Physical and in the interval since the performance of the History & Physical I have noted the following changes of clinical significance: no changes noted
--- NOTE | 2018-12-13 08:41 | History & Physical Report ---
Date of Service December 13, 2018 Assessment & Plan (1) Fracture of pedicle of thoracic vertebra: Removal of hardware T9-T11 fusion T5-T11 Present on Admission?: Yes History of Present Illness Chief Complaint: Back and leg pain Primary Care Provider: Apolonia Bolanos This is a 63-year-old male well-known to me is here for surgical intervention after failing extensive course of nonoperative care. Allergies Allergy/AdvReac Type Severity Reaction Status Date / Time loratadine Allergy Severe BREATHING Verified 12/13/18 07:55 DIFFICULTY shellfish derived Allergy Severe throat Verified 12/13/18 07:55 gets scratchy diphenhydramine Allergy Intermediate HIVES Verified 12/13/18 07:55 Macrolide Antibiotics Allergy Intermediate E-MYCIN=HIVES; Verified 12/13/18 07: 55 "MYCINS"--JAUNDICE Fish Containing Products Allergy Mild THROAT Verified 12/13/18 07:55 SWELLS rofecoxib AdvReac Severe CARDIAC SX Verified 12/13/18 07:55 oxycodone AdvReac Intermediate TERRIBLE Verified 12/13/18 07:55 DREAMS,DISORIENTATION Home Medications Home Medications Medication Instructions Recorded Confirmed Type acetaminophen 325 mg PO Q6H PRN 12/05/18 12/05/18 History amlodipine [Norvasc] 5 mg PO QAM 12/05/18 12/13/18 History aspirin [Aspir-81] 81 mg PO DAILY 12/05/18 12/13/18 History baclofen 20 mg PO QID 12/05/18 12/13/18 History calcium carbonate-vitamin D3 1 tab PO BID 12/05/18 12/13/18 History [Calcium 500 + D] cetirizine [Zyrtec] 10 mg PO QAM 12/05/18 12/13/18 History clopidogrel [Plavix] 75 mg PO DAILY 12/05/18 12/13/18 History coenzyme Q10 [CoQ-10] 200 mg PO QPM 12/05/18 12/13/18 History docusate sodium 100 mg PO TID 12/05/18 12/13/18 History doxazosin 1 mg PO HS 12/05/18 12/13/18 History fluticasone [Flonase Allergy 1 spray INTRANASAL DAILY PRN 12/05/18 12/13/18 History Relief] glycerin (adult) [Suppository 1 supp [place] DAILY PRN 12/05/18 12/13/18 History Adult] hydrochlorothiazide 12.5 mg PO QAM 12/05/18 12/13/18 History hydrocodone-acetaminophen 1 tab PO QID PRN 12/05/18 12/13/18 History lansoprazole [Prevacid] 30 mg PO QAM 12/05/18 12/13/18 History meclizine 12.5 mg PO TID PRN 12/05/18 12/13/18 History metoprolol succinate 100 mg PO QAM 12/05/18 12/13/18 History mirabegron [Myrbetriq] 50 mg PO QAM 12/05/18 12/13/18 History multivitamin 1 tab PO QAM 12/05/18 12/13/18 History nitroglycerin [Nitrostat] 1 tab SUBLINGUAL UD PRN 12/05/18 12/05/18 History pitavastatin calcium [Livalo] 4 mg PO HS 12/05/18 12/13/18 History potassium chloride 20 meq PO BID 12/05/18 12/13/18 History pregabalin [Lyrica] 200 mg PO BID 12/05/18 12/13/18 History prochlorperazine maleate 10 mg PO HS 12/05/18 12/05/18 History ramipril 10 mg PO HS 12/05/18 12/13/18 History temazepam 15 mg PO HS PRN 12/05/18 12/05/18 History vitamin O71-yuwoq acid 1 tab PO QAM 12/05/18 12/13/18 History duloxetine 60 mg PO PM 12/06/18 12/13/18 History famotidine 20 mg PO HS 12/06/18 12/13/18 History lidocaine [Lidocaine Pain Relief] 2 patch TOPICAL DAILY 12/06/18 12/06/18 History sennosides 8.6 mg PO LD 12/06/18 12/13/18 History trazodone 0.5 tab PO HS 12/06/18 12/13/18 History Past Med/Surg History Social History Current Living Situation: Spouse Other Information That Helps Us Care for You: No Feels Safe at Home: Yes Safety Concerns: Feels Safe At This Time Smoking Status: Former smoker Cigarettes per Day: Smoked 1ppd x 15 years Do You Dip or Chew Tobacco: No Smoking End Date: Quit 32 years ago Hx Alcohol Use: No Hx Substance Use: No Beliefs That Will Affect Care: None Preferred Language: Korean Communication Ability: Effective Heavy Equipment Supervisor Required: No
[2018-12-13] MEDS ORDERED: BACITRACIN INJ 50,000 UNIT VIAL ONE (08:47)
[2018-12-13] MEDS ORDERED: BUPIVACAINE/EPINEPHRINE 0.5% MPF 1:200,000 30 ML VIAL ONE (08:47)
[2018-12-13] MEDS ORDERED: LARYING-O-JET KIT (LTA) ONE (08:52)
[2018-12-13] MEDS ORDERED: DEXAMETHASONE SOD INJ 4 MG/ML VIAL ONE ×2 (08:52→11:24)
[2018-12-13] MEDS ORDERED: LIDOCAINE HCL 2% 2 ML VIAL/AMP(20MG/ML) INFIL ONE ×2 (08:52→11:24)
[2018-12-13] MEDS ORDERED: GLYCOPYRROLATE 0.2 MG/ML VIAL ONE ×2 (08:52→11:24)
[2018-12-13] MEDS ORDERED: NEOSTIGMINE METHYLSULFATE 1 MG/ML 10ML VIAL ONE ×2 (08:52→11:24)
[2018-12-13] MEDS ORDERED: ONDANSETRON INJ 2 MG/ML 2 ML VIAL ONE ×2 (08:52→11:24)
[2018-12-13] MEDS ORDERED: PROPOFOL IV EMULSION 10 MG/ML 20 ML VIAL IV ONE ×2 (08:52→11:24)
[2018-12-13] MEDS ORDERED: ePHEDrine sulfate 50 MG/ML AMP IV PRN (09:15)
[2018-12-13] MEDS ORDERED: ONDANSETRON INJ 2 MG/ML 2 ML VIAL IV PRN ×2 (09:15→13:52)
[2018-12-13] MEDS ORDERED: fentaNYL citrate 100 MCG/2 ML VIAL IV PRN (09:15)
[2018-12-13] MEDS ORDERED: HYDROmorphone INJ 2 MG/ML SYR/VIAL IV PRN (09:15)
[2018-12-13] MEDS ORDERED: ATROPINE SULFATE 0.1 MG/ML 10ML SYR IV PRN (09:15)
[2018-12-13] MEDS ORDERED: ESMOLOL HCL INJ 10 MG/ML 10ML VIAL IV ONE ×2 (10:04→11:24)
[2018-12-13] MEDS ORDERED: PHENYLEPHRINE 100MCG/ML 5ML SYR ONE ×2 (10:04→11:24)
[2018-12-13] MEDS ORDERED: FLOSEAL HEMOSTATIC MATRIX 10ML TOP ONE (10:13)
[2018-12-13] MEDS ORDERED: ROCURONIUM BROMIDE 10 MG/ML 5 ML VIAL ONE ×2 (11:24→12:05)
--- NOTE | 2018-12-13 11:59 | Operative Report ---
Post Operative Report Pre & Post Diagnosis Operation Date: 12/13/18 07:45 Pre-Op Diagnosis: Pain in Thoracic Spine Post-Op Diagnosis: Pain in Thoracic Spine Procedure Operation Date: 12/13/18 07:45 Actual Procedures #1 removal of posterior segmental instrumentation T9 through T11. #2 expiration of fusion T9 through T11. #3 posterior spinal fusion T5-T10. #4 placement posterior segmental instrumentation T6-T11. Surgeon Barry Almaraz DO Director Of Music Elham Choudhary Estimated Blood Loss 200 Findings Consistent with Post-Op Diagnosis Specimens None Description of Procedure Patient was met with preoperatively case discussed all questions addressed. After informed consent obtained patient was taken to the operative suite underwent intubation and placed in a prone position the Zach table on top of the Montez frame. All bony prominences well-padded eyes inspected to ensure no external pressure placed upon. This point the thoracolumbar spine was prepped and draped in a sterile fashion. Sharp dissection with the assistance of Bovie cautery was performed down to and exposing the lamina and transverse processes of T5 T6-T7-T8 and the instrumentation at the T9-T10-T11 bilaterally. Then proceeded move the hardware bilaterally and upon expiration of fusion noted evidence of nonunion the T9-T10 level. I then proceeded to put pedicle screws in T6-T7-T8 bilaterally with assistance of fluoroscopy and placed new screws in T8 10 and T11 bilaterally. The previously placed barrel connectors were removed and new ones placed. Process marquise was then contoured and locked in position bilaterally. A cross-link was also utilized. I then burred the lamina and transverse process of T5-T6-T7 T8-T9-T10 to subcortical bleeding bone placed infuse collagen sponge, mass graft and local autograft in the posterior gutters. 15 round ROME drain inserted. Incision was then closed with 1 Vicryl fascia 2-0 Vicryl subtenons in 4 Monocryl for final skin closure Steri- Strip sterile dressings placed. Patient awakened taken to PACU in stable condition. Please note Elham Choudhary was present throughout the entire procedure involved in patient positioning complex portions of the surgery and final skin closure. I attest to the content of the Intraoperative Record and any orders documented therein. Any exceptions are noted below.
--- NOTE | 2018-12-13 12:06 | Fluoroscopy Report ---
Thoracic SPINE, INTRAOPERATIVE FLUOROSCOPY HISTORY: T9 T11 removal of hardware. T5 T11 fusion. FLUOROSCOPY TIME: 1 minute and 14 seconds. FINDINGS: Intraoperative fluoroscopy was provided for the thoracic spine. 2 fluoroscopic spot images were obtained. Posterior decompression and fusion seen within the mid to lower thoracic spine. The ex act levels are difficult to determine on this focused imaging. IMPRESSION: Fluoroscopy provided for a posterior decompression and fusion within the mid to lower tho racic spine. Electronically signed by: Sukhi Alanis M.D. 12/13/2018 12:04 PM
[2018-12-13] MEDS ORDERED: raNITIdine HCl 25 MG/ML VIAL ONE (12:22)
[2018-12-13] MEDS ORDERED: METOCLOPRAMIDE HCL INJ 5 MG/ML 2 ML VIAL ONE (12:22)
--- NOTE | 2018-12-13 13:24 | Anesthesiology Progress Note ---
Date of Service December 13, 2018 Anesthesia Post Procedure Vital Signs Vital Signs: Temp Pulse Pulse Resp BP BP Pulse Ox 12/13/18 13:20 70 16 160/91 H 95 12/13/18 13:10 36.4 C L 70 14 158/84 H 94 12/13/18 13:00 70 14 163/91 H 94 12/13/18 12:50 70 14 176/96 H 98 12/13/18 12:40 70 14 145/90 H 97 12/13/18 12:30 36.0 C L 71 12 144/84 H 98 12/13/18 08:21 36.5 C 69 18 163/95 H 94 Pain Intensity Medial Back: Pain Intensity: 5 Notes Mental Status: alert / awake / arousable Patient Amnestic to Procedure: Yes Nausea / Vomiting: adequately controlled Pain: adequately controlled Airway Patency, RR, SpO2: stable & adequate BP & HR: stable & adequate Hydration State: stable & adequate Anesthetic Complications: no major complications apparent
[2018-12-13] MEDS ORDERED: MECLIZINE 12.5 MG TAB PO PRN (13:52)
[2018-12-13] MEDS ORDERED: MAGNESIUM HYDROXIDE SUSP 30 ML UDC PO PRN (13:52)
[2018-12-13] MEDS ORDERED: LORazepam 0.5 MG/1 ML VIAL IV PRN (13:52)
[2018-12-13] MEDS ORDERED: PROMETHAZINE HCL 12.5 MG in SODIUM CHLORIDE 0.9% 50 ML IV PRN (13:52)
[2018-12-13] MEDS ORDERED: FAMOTIDINE 20 MG TAB PO PRN (13:52)
[2018-12-13] MEDS ORDERED: DO NOT ADMINISTER FLU VACCINE PRN (13:52)
[2018-12-13] MEDS ORDERED: DO NOT ADMINISTER PNEUMOCOCCAL VACCINE PRN (13:52)
[2018-12-13] MEDS ORDERED: GLYCERIN ADULT 12 EA SUPP PR PRN (13:52)
[2018-12-13] MEDS ORDERED: SENNA 8.6 MG TAB PO SCH (13:52)
[2018-12-13] MEDS ORDERED: ONDANSETRON 4 MG TAB PO PRN (13:52)
[2018-12-13] MEDS ORDERED: HYDROCODONE/ACETAMOPHEN 5/325MG TAB PO PRN (13:52)
[2018-12-13] MEDS ORDERED: ACETAMINOPHEN 500 MG TAB PO PRN (13:52)
[2018-12-13] MEDS ORDERED: ALUMINUM/MAGNESIUM SUSP 30 ML UDC PO PRN (13:52)
[2018-12-13] MEDS ORDERED: LORazepam 0.5 MG TAB PO PRN (13:52)
[2018-12-13] MEDS ORDERED: METOCLOPRAMIDE HCL INJ 5 MG/ML 2 ML VIAL IV PRN (13:52)
[2018-12-13] MEDS ORDERED: ACETAMINOPHEN 325 MG TAB PO PRN (13:52)
[2018-12-13] MEDS ORDERED: SOD PHOSPHATE/SOD BIPHOSPHATE ENEMA 132 ML BTL PR PRN (13:52)
[2018-12-13] MEDS ORDERED: NITROGLYCERIN SL 0.4 MG/TAB TAB SL PRN (13:52)
[2018-12-13] MEDS ORDERED: NON-FORMULARY MEDICATION (Docusate Sodium [Docusate Sodium] 100 MG) PO SCH (14:00)
[2018-12-13] MEDS ORDERED: ALBUT/IPRATROP 3MG/0.5MG NEB 3 ML VIAL NEB STA (14:14)
--- NOTE | 2018-12-13 14:20 | History & Physical Report ---
Date of Service December 13, 2018 Assessment & Plan (1) Back pain: s/p OR on 12/[address] Almaraz Diet per ortho Pre-op Hb 13.6 Pt is still quite sedated post-op O2 sats and HR/BP are WNL Advised to call anesthesia if new issues arise or pulse ox is dropping (2) Wheezing: No documented hx of COPD Pt quit smoking >30 yrs ago Likely related to intubation during OR, possibly some underlying lung disease Nebs now x1, Q4hr x24hr Would benefit from formal PFTs as outpt (3) UTI (urinary tract infection): Pre-op UA on 12/06 + for UTI with cx showing pansensitive ecoli Start rocephin 12/13 (4) Paralysis: Occurred s/p ortho surgery last year No movement of R LE, some ability to lift L LE Baclofen and lyrica for spasm related to paralysis UE were not affected (5) Myocardial infarction: Hx of [place] x4, stents x6 states aspirin was not held pre-op per ortho instructions Resume plavix when able (6) A-fib: Ongoing aspirin Pt was cardioverted many years ago (7) Stented coronary artery: As above (8) Hypertension: continue home meds (9) DENICE (obstructive sleep apnea): Noncompliant with CPAP per (10) Hyperlipidemia: continue home meds (11) GERD (gastroesophageal reflux disease): continue home meds (12) Depression: continue home meds (13) DVT prophylaxis: As per ortho History of Present Illness Primary Care Provider: Apolonia Bolanos 63 y/o M who was admitted on 12/13 s/p hardware removal and fusion with Dr. Almaraz. Nursing is having a difficult time keeping pt awake post-op. He does wake to physical stimulus but does not stay awake. No PO intake attempted yet. states she was told that surgery went well and without complications. states she was called by PCP last night to notify that pt has a UTI that was found on his pre-op labs. Pt has neurogenic bladder with urinary frequency and pain at baseline. Pt does not stay awake long enough for full ROS. Allergies Allergy/AdvReac Type Severity Reaction Status Date / Time loratadine Allergy Severe BREATHING Verified 12/13/18 07:55 DIFFICULTY shellfish derived Allergy Severe throat Verified 12/13/18 07:55 gets scratchy diphenhydramine Allergy Intermediate HIVES Verified 12/13/18 07:55 Macrolide Antibiotics Allergy Intermediate E-MYCIN=HIVES; Verified 12/13/18 07: 55 "MYCINS"--JAUNDICE Fish Containing Products Allergy Mild THROAT Verified 12/13/18 07:55 SWELLS rofecoxib AdvReac Severe CARDIAC SX Verified 12/13/18 07:55 oxycodone AdvReac Intermediate TERRIBLE Verified 12/13/18 07:55 DREAMS,DISORIENTATION Home Medications Home Medications Medication Instructions Recorded Confirmed Type acetaminophen 325 mg PO Q6H PRN 12/05/18 12/05/18 History amlodipine [Norvasc] 5 mg PO QAM 12/05/18 12/13/18 History aspirin [Aspir-81] 81 mg PO DAILY 12/05/18 12/13/18 History baclofen 20 mg PO QID 12/05/18 12/13/18 History calcium carbonate-vitamin D3 1 tab PO BID 12/05/18 12/13/18 History [Calcium 500 + D] cetirizine [Zyrtec] 10 mg PO QAM 12/05/18 12/13/18 History clopidogrel [Plavix] 75 mg PO DAILY 12/05/18 12/13/18 History coenzyme Q10 [CoQ-10] 200 mg PO QPM 12/05/18 12/13/18 History docusate sodium 100 mg PO TID 12/05/18 12/13/18 History doxazosin 1 mg PO HS 12/05/18 12/13/18 History fluticasone [Flonase Allergy 1 spray INTRANASAL DAILY PRN 12/05/18 12/13/18 History Relief] glycerin (adult) [Suppository 1 supp ME DAILY PRN 12/05/18 12/13/18 History Adult] hydrochlorothiazide 25 mg PO QAM 12/05/18 12/13/18 History hydrocodone-acetaminophen 1 tab PO QID PRN 12/05/18 12/13/18 History lansoprazole [Prevacid] 30 mg PO QAM 12/05/18 12/13/18 History meclizine 12.5 mg PO TID PRN 12/05/18 12/13/18 History metoprolol succinate 100 mg PO QAM 12/05/18 12/13/18 History mirabegron [Myrbetriq] 50 mg PO QAM 12/05/18 12/13/18 History multivitamin 1 tab PO QAM 12/05/18 12/13/18 History nitroglycerin [Nitrostat] 1 tab SUBLINGUAL UD PRN 12/05/18 12/05/18 History pitavastatin calcium [Livalo] 4 mg PO HS 12/05/18 12/13/18 History potassium chloride 20 meq PO BID 12/05/18 12/13/18 History pregabalin [Lyrica] 200 mg PO TID 12/05/18 12/13/18 History ramipril 10 mg PO HS 12/05/18 12/13/18 History vitamin [id number] acid 1 tab PO QAM 12/05/18 12/13/18 History duloxetine 60 mg PO PM 12/06/18 12/13/18 History famotidine 20 mg PO HS 12/06/18 12/13/18 History lidocaine [Lidocaine Pain Relief] 2 patch TOPICAL DAILY 12/06/18 12/06/18 History sennosides 8.6 mg PO LD 12/06/18 12/13/18 History trazodone 0.5 tab PO HS 12/06/18 12/13/18 History Past Med/Surg History Medical History Aortic aneurysm MONITORED WITH DR. KURTZ Atrial fibrillation Bilateral leg paresthesia FOLLOW THORACIC INTERBODY FUSION NOV 2017 CAD (coronary artery disease) STENTS X6 GERD (gastroesophageal reflux disease) Hyperlipidemia Hypertension Myocardial Infarction PER MEDICAL RECORD. S/P PCI X 6 STENTS, LAST 2 IN LAD, [facility] Neurogenic bladder Neurogenic bowel Osteoarthritis Pacemaker HX OF SYMPTOMATIC SINUS BRADYCARDIA. PT FOLLOWS WITH DR. CONTRERAS Paralysis PARLYSIS/PARATHESIA OF B/L LOWER EXTREMITIES FOLLOW LOWER THORACIC INTERBODY FUSION NOV 2017. Self-catheterizes urinary bladder Q3H. USES 16FRENCH Sleep apnea DOES NOT WEAR CPAP Surgical History Fusion of spine THORACIC NOV 2017 - 8.0 ETT, MAC #3, Secured @ 22cm. Smooth induction with atraumatic intubation. Grade 1 view. H/O sinus surgery History of arthroscopic surgery of shoulder X2 (LEFT) History of cardiac cath TOTAL OF 6 STENTS, FOLLOWS WITH DR. CONTRERAS History of cardiac pacemaker History of cholecystectomy History of gastric bypass GASTRIC SLEEVE PROCEDURE History of total knee replacement BILATERAL S/P UPPP (uvulopalatopharyngoplasty) S/P cervical spinal fusion c5-6 Social History Current Living Situation: Spouse Other Information That Helps Us Care for You: No Feels Safe at Home: Yes Safety Concerns: Feels Safe At This Time Smoking Status: Former smoker Cigarettes per Day: Smoked 1ppd x 15 years Do You Dip or Chew Tobacco: No Smoking End Date: Quit 32 years ago Hx Alcohol Use: No Hx Substance Use: No Beliefs That Will Affect Care: None Preferred Language: Welsh Communication Ability: Effective 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 Required: No Review of Systems Pertinent positives and negatives reviewed in HPI--all others negative Physical Exam 2 Vital Signs (Past 24 Hours): Last Vital Signs Temp 36.4 C L 12/13/18 13:53 Pulse 70 12/13/18 13:53 Resp 12 12/13/18 13:53 BP 154/95 H 12/13/18 13:53 Pulse Ox 95 12/13/18 13:53 Constitutional: WD/WN, vitals as above Eyes: normal visual reyes by confrontation and + anicteric sclerae Neck: normal visual inspection and trachea midline Respiratory: normal respiratory effort; no respiratory distress Auscultation: + wheezes (diffuse, expiratory) Cardiovascular: Rate/Rhythm: regular rate and regular rhythm Gastrointestinal (Abdomen): Inspection/Auscultation: abdomen not distended Percussion/Palpation: abdomen soft; abdomen nontender Musculoskeletal: Head/Neck/Chest: normocephalic and head atraumatic negative for edema, peripheral pulses intact Skin: no rashes, warm and dry Neurologic: awake; not confused Wakes to physical stimulus but does not stay awake Psychiatric: Orientation: alert and oriented to person Resting comfortably Code Status & VTE Plan Code Status Full code VTE Prophylaxis Plan VTE Prophylaxis will be ordered: Yes
[2018-12-13] MEDS: ALBUT/IPRATROP 3MG/0.5MG NEB 3 ML VIAL NEB SCH ×3 (15:17→23:15)
[2018-12-13] MEDS: HYDROCODONE/ACETAMOPHEN 5/325MG TAB PO PRN ×2 (15:55→22:10)
[2018-12-13] MEDS: cefTRIAXone SODIUM 1,000 MG in SODIUM CHLOR 0.9% AD-VAN 50 ML IV SCH (15:58)
[2018-12-13] MEDS: SODIUM CHLORIDE 0.9% 1000ML 1,000 ML IV SCH (16:02)
[2018-12-13] MEDS: PREGABALIN 100 MG CAP PO SCH ×2 (16:02→22:10)
[2018-12-13] MEDS: BACLOFEN 20 MG TAB PO SCH ×2 (19:25→22:11)
[2018-12-13] MEDS: CEFAZOLIN 2000MG 2,000 MG/15 ML SYR IV SCH (19:46)
[2018-12-13] MEDS: HYDROmorphone INJ 0.5 MG/0.5 ML SYR IV PRN ×2 (19:47→23:56)
[2018-12-13] MEDS ORDERED: NON-FORMULARY MEDICATION (Coenzyme Q10 [Coq-10] 200 MG) PO SCH (21:00)
[2018-12-13] MEDS: CALCIUM 600MG + VIT D 400 IU TAB PO SCH (22:11)
[2018-12-13] MEDS: DOCUSATE SODIUM/SENNA 50/8.6MG TAB PO SCH (22:12)
[2018-12-13] MEDS: ENALAPRIL MALEATE 10 MG TAB PO SCH (22:12)
[2018-12-13] MEDS: FAMOTIDINE 20 MG TAB PO SCH (22:13)
[2018-12-13] MEDS: TRAZODONE HCL 50 MG TAB PO SCH (22:13)
[2018-12-13] MEDS: DULOXETINE HCL 60 MG CAP PO SCH (22:14)
[2018-12-13] MEDS: DOXAZOSIN MESYLATE 1 MG TAB PO SCH (22:15)
[2018-12-13] MEDS: POTASSIUM CHLORIDE 20 MEQ TABCR PO SCH (22:15)
[2018-12-14] MEDS: SODIUM CHLORIDE 0.9% 1000ML 1,000 ML IV SCH ×2 (00:01→06:40)
[2018-12-14] MEDS: CEFAZOLIN 2000MG 2,000 MG/15 ML SYR IV SCH (00:04)
[2018-12-14] MEDS: HYDROCODONE/ACETAMOPHEN 5/325MG TAB PO PRN ×3 (03:22→17:52)
[2018-12-14] MEDS: ALBUT/IPRATROP 3MG/0.5MG NEB 3 ML VIAL NEB SCH ×6 (04:40→23:15)
[2018-12-14] MEDS: POLYETHYLENE (MIRALAX) 17 GM PACK PO SCH ×3 (05:29→17:51)
[2018-12-14] MEDS ORDERED: Nursing to Pharmacy Communication ONE (05:54)
[2018-12-14 06:46] LABS: Basophils # (auto) 0.02 K/uL (0-0.2); Basophils % (auto) 0.2 %; Eosinophils # (auto) 0.11 K/uL (0-0.5); Eosinophils % (auto) 1.3 %; Hematocrit (blood only) 32.9 % (42-52); Hemoglobin 10.7 g/dL (14.0-18.0); Immature Granulocytes # (auto) 0.02 K/uL (0.00-0.02); Immature Granulocytes % (auto) 0.2 %; Lymphocytes # (auto) 1.28 K/uL (1.2-3.4); Lymphocytes % (auto) 15.6 %; Mean Corpuscular Hgb Conc 32.5 g/dL (32-36); Mean Corpuscular Volume 90.1 fL (80-100); Mean Platelet Volume 9.9 fL (7.4-10.4); Monocytes # (auto) 0.81 K/uL (0.11-0.59); Monocytes % (auto) 9.9 %; Neutrophils # (auto) 5.97 K/uL (1.4-6.5); Neutrophils % (auto) 72.8 %; Platelet Count 164 K/uL (130-400); RDW Coefficient of Variation 15.9 % (11.5-14.5); Red Blood Count 3.65 M/uL (4.7-6.1); White Blood Count 8.21 K/uL (4.8-10.8)
[2018-12-14 07:22] LABS: Calcium 7.8 mg/dl (8.5-10.1); Est GFR (African American) 107.5; Est GFR (Non-African American) 92.7; Potassium 3.9 mmol/L (3.5-5.1)
[2018-12-14] MEDS: HYDROmorphone INJ 0.5 MG/0.5 ML SYR IV PRN ×2 (08:27→23:53)
[2018-12-14] MEDS ORDERED: CYANOCOBALAMIN 500 MCG TABLET (VITAMIN B-12) PO SCH (09:00)
[2018-12-14] MEDS: PREGABALIN 100 MG CAP PO SCH ×3 (09:01→21:54)
[2018-12-14] MEDS: MIRABEGRON ER 25 MG TAB PO SCH (09:01)
[2018-12-14] MEDS: PANTOprazole 40 MG TAB PO SCH (09:01)
[2018-12-14] MEDS: FOLIC ACID 400 MCG TAB PO SCH (09:02)
[2018-12-14] MEDS: AMLODIPINE BESYLATE 5 MG TAB PO SCH (09:02)
[2018-12-14] MEDS: POTASSIUM CHLORIDE 20 MEQ TABCR PO SCH (09:02)
[2018-12-14] MEDS: hydroCHLOROthiazide 25 MG TAB PO SCH (09:02)
[2018-12-14] MEDS: ASPIRIN 81 MG ECTAB PO SCH (09:03)
[2018-12-14] MEDS: MULTIVITAMIN TAB PO SCH (09:03)
[2018-12-14] MEDS: CETIRIZINE HCL 10 MG TABLET PO SCH (09:04)
[2018-12-14] MEDS: BACLOFEN 20 MG TAB PO SCH ×4 (09:04→22:23)
[2018-12-14] MEDS: CALCIUM 600MG + VIT D 400 IU TAB PO SCH ×2 (09:04→21:31)
[2018-12-14] MEDS: METOPROLOL SUCC 50MG EXT REL TAB PO SCH (09:04)
[2018-12-14] MEDS: CYANOCOBALAMIN 500 MCG TABLET (VITAMIN B-12) PO SCH (09:17)
[2018-12-14] MEDS: BISACODYL 10 MG SUPP PR PRN (10:34)
--- NOTE | 2018-12-14 13:07 | Orthopedic Progress Note ---
Date of Service December 14, 2018 Assessment & Plan (1) Fracture of pedicle of thoracic vertebra: This time we will begin process for hopeful transfer to rehab facility. He may begin occupational therapy physical therapy today we would like to avoid heavy straining and pulling of his upper extremities so as not to loosen the upper thoracic construct. Present on Admission?: Yes Subjective Patient's pain is controlled. Denies any radicular complaints. Physical Exam 2 Vital Signs (Past 24 Hours): Last Vital Signs Temp 36.9 C 12/14/18 08:06 Pulse 82 12/14/18 11:24 Resp 18 12/14/18 11:24 BP 101/58 L 12/14/18 10:50 Pulse Ox 91 12/14/18 11:24 Physical Exam: On exam is alert and oriented comfortable with range of motion of his upper extremities. No changes in his lower extremity exam.
[2018-12-14] MEDS: cefTRIAXone SODIUM 1,000 MG in SODIUM CHLOR 0.9% AD-VAN 50 ML IV SCH (14:13)
--- NOTE | 2018-12-14 20:57 | Hospitalist Progress Note ---
Date of Service December 14, 2018 Assessment & Plan (1) Back pain: s/p OR on 12/[address] Almaraz for thoracic spine fusion -doing well post-op -ain control, bowel regimen in place Pre-op Hb 13.6 and 10.7 post-op -plan for rehab placement (2) Wheezing: Had wheezing post-op, now resolved No documented hx of COPD Pt quit smoking >30 yrs ago Likely related to intubation during OR, possibly some underlying lung disease -continue nebs Would benefit from formal PFTs as outpt (3) UTI (urinary tract infection): Has neurogenic bladder and self-caths at home Pre-op UA on 12/06 + for UTI with cx showing pansensitive ecoli -continue rocephin -day #2 (4) Paralysis: Occurred s/p ortho surgery last year No movement of R LE, some ability to lift L LE -continue Baclofen and lyrica for spasm related to paralysis UE were not affected (5) Myocardial infarction: Hx of [place] x4, stents x6, most recent was to the LAD in [facility] in 2012 -continue ASA, metoprolol -his statin not available here-asked to bring in from home Resume plavix when able as per Ortho Had Lexiscan stress in 2017 that was normal (6) A-fib: Had Afib x 3 months several years ago and was cardioverted, no problems since then and not on anticoagulation (7) Stented coronary artery: As above (8) Hypertension: Controlled -continue home meds of metoprolol, ACEi (substituted here with enalapril for ramipril 5mg bid), HCTZ, and amlodipine 5mg daily (9) DENICE (obstructive sleep apnea): Noncompliant with CPAP per (10) Hyperlipidemia: -on Livalo at home, not available here-can bring in from home (11) GERD (gastroesophageal reflux disease): continue PPI, H2 vasquez (12) Depression: stable -continue Cymbalta (13) DVT prophylaxis: SCDs Dispo-remain on med/surg floor, plan to transfer to rehab when ok with Ortho Will follow along Subjective Pt feeling better than yesterday, pain in back is improved. Denies CP or SOB. Has a mildly productive cough. No BM yet, has Izquierdo in place, self-caths at home. Denies abd pain. Review of Systems All systems reviewed & are unremarkable except as noted in HPI & below Physical Exam 2 Vital Signs (Past 24 Hours): Last Vital Signs Temp 37 C 12/14/18 15:01 Pulse 77 12/14/18 19:34 Resp 16 12/14/18 19:34 BP 138/70 12/14/18 15:01 Pulse Ox 90 12/14/18 19:34 Constitutional: WD/WN, vitals as above + morbidly obese Eyes: PERRL, conjunctivae normal, anicteric sclerae ENMT: external ear and nose normal, oropharynx normal Neck: trachea midline, no thyromegaly Respiratory: normal respiratory effort, lungs clear to auscultation Cardiovascular: RRR, no murmur, no edema Gastrointestinal (Abdomen): normal bowel sounds, soft, nontender, no hepatosplenomegaly Musculoskeletal: Extremities: extremities normal to inspection; no cyanosis and no clubbing Skin: no rashes, warm and dry Neurologic: awake Psychiatric: A+Ox3, euthymic affect Genitourinary: Izquierdo catheter in place Results & Data Laboratory Results 12/14/18 12/14/18 12/14/18 Range/Units 06:29 06:29 06:29 WBC 8.21 (4.8-10.8) K/uL RBC 3.65 L (4.7-6.1) M/uL Hgb 10.7 L (14.0-18.0) g/dL Hct 32.9 L (42-52) % MCV 90.1 (80-100) fL MCH 29.3 (25-34) pg MCHC 32.5 (32-36) g/dL RDW Std Deviation 52.0 H (36.4-46.3) fL RDW Coeff of Jimi 15.9 H (11.5-14.5) % Plt Count 164 (130-400) K/uL MPV 9.9 (7.4-10.4) fL Immature Gran % (Auto) 0.2 % Neut % (Auto) 72.8 % Lymph % (Auto) 15.6 % [place] % (Auto) 9.9 % Eos % (Auto) 1.3 % Baso % (Auto) 0.2 % Immature Gran # (Auto) 0.02 (0.00-0.02) K/uL Neut # (Auto) 5.97 (1.4-6.5) K/uL Lymph # (Auto) 1.28 (1.2-3.4) K/uL [place] # (Auto) 0.81 H (0.11-0.59) K/uL Eos # (Auto) 0.11 (0-0.5) K/uL Baso # (Auto) 0.02 (0-0.2) K/uL Sodium 138 (136-145) mmol/L Potassium 3.9 (3.5-5.1) mmol/L Chloride 106 (98-107) mmol/L Carbon Dioxide 27 (21-32) mmol/L Anion Gap 5.0 (3-11) BUN 21 H (7-18) mg/dl Creatinine 0.85 (0.6-1.4) mg/dl Est Cr Clr Drug Dosing 121.0 ml/min Est GFR ( Amer) 107.5 Est GFR (Non-Af Amer) 92.7 BUN/Creatinine Ratio 25.0 H (10-20) Glucose 120 H (70-99) mg/dl Calcium 7.8 L (8.5-10.1) mg/dl Hepatitis C Ab Screen Neg (Neg) _ (1) UTI (urinary tract infection) Urinary tract infection type: catheter-associated UTI Indwelling urinary catheter type: unspecified Encounter type: subsequent encounter Qualified Code (s): T83.511D - Infection and inflammatory reaction due to indwelling urethral catheter, subsequent encounter; N39.0 - Urinary tract infection, site not specified (2) A-fib Atrial fibrillation type: paroxysmal Qualified Code(s): I48.0 - Paroxysmal atrial fibrillation (3) Hypertension Hypertension type: essential hypertension Qualified Code(s): I10 - Essential (primary) hypertension (4) Hyperlipidemia Hyperlipidemia type: unspecified Qualified Code(s): E78.5 - Hyperlipidemia, unspecified
[2018-12-14] MEDS: TRAMADOL HCL 50 MG TABLET PO PRN (21:25)
[2018-12-14] MEDS: TRAZODONE HCL 50 MG TAB PO SCH (21:29)
[2018-12-14] MEDS: DULOXETINE HCL 60 MG CAP PO SCH (21:31)
[2018-12-14] MEDS: DOXAZOSIN MESYLATE 1 MG TAB PO SCH (21:31)
[2018-12-14] MEDS: FAMOTIDINE 20 MG TAB PO SCH (21:33)
[2018-12-14] MEDS: DOCUSATE SODIUM/SENNA 50/8.6MG TAB PO SCH (21:33)
[2018-12-14] MEDS: ENALAPRIL MALEATE 10 MG TAB PO SCH (21:34)
[2018-12-15] MEDS: POLYETHYLENE (MIRALAX) 17 GM PACK PO SCH (01:28)
[2018-12-15] MEDS: ALBUT/IPRATROP 3MG/0.5MG NEB 3 ML VIAL NEB SCH ×4 (02:50→15:58)
[2018-12-15 07:44] LABS: Basophils # (auto) 0.01 K/uL (0-0.2); Basophils % (auto) 0.1 %; Eosinophils # (auto) 0.17 K/uL (0-0.5); Hematocrit (blood only) 34.3 % (42-52); Hemoglobin 10.8 g/dL (14.0-18.0); Immature Granulocytes # (auto) 0.02 K/uL (0.00-0.02); Immature Granulocytes % (auto) 0.2 %; Lymphocytes # (auto) 1.23 K/uL (1.2-3.4); Lymphocytes % (auto) 14.8 %; Mean Corpuscular Hgb Conc 31.5 g/dL (32-36); Mean Corpuscular Volume 91.5 fL (80-100); Mean Platelet Volume 10.5 fL (7.4-10.4); Monocytes # (auto) 0.88 K/uL (0.11-0.59); Monocytes % (auto) 10.6 %; Neutrophils % (auto) 72.3 %; Platelet Count 166 K/uL (130-400); RDW Coefficient of Variation 16.2 % (11.5-14.5); RDW Standard Deviation 54.3 fL (36.4-46.3); Red Blood Count 3.75 M/uL (4.7-6.1); White Blood Count 8.31 K/uL (4.8-10.8)
[2018-12-15 08:22] LABS: BUN Creatinine Ratio 19.3 (10-20); Calcium 8.1 mg/dl (8.5-10.1); Creatinine Clr Calc Pharmacy 130.2 ml/min; Est GFR (African American) 110.8; Est GFR (Non-African American) 95.6; Potassium 3.9 mmol/L (3.5-5.1)
[2018-12-15] MEDS: PREGABALIN 100 MG CAP PO SCH ×3 (08:48→21:03)
[2018-12-15] MEDS: POTASSIUM CHLORIDE 20 MEQ TABCR PO SCH (08:48)
[2018-12-15] MEDS: CYANOCOBALAMIN 500 MCG TABLET (VITAMIN B-12) PO SCH (08:48)
[2018-12-15] MEDS: CALCIUM 600MG + VIT D 400 IU TAB PO SCH ×2 (08:48→21:05)
[2018-12-15] MEDS: MULTIVITAMIN TAB PO SCH (08:49)
[2018-12-15] MEDS: PANTOprazole 40 MG TAB PO SCH (08:49)
[2018-12-15] MEDS: CETIRIZINE HCL 10 MG TABLET PO SCH (08:49)
[2018-12-15] MEDS: METOPROLOL SUCC 50MG EXT REL TAB PO SCH (08:49)
[2018-12-15] MEDS: AMLODIPINE BESYLATE 5 MG TAB PO SCH (08:49)
[2018-12-15] MEDS: MIRABEGRON ER 25 MG TAB PO SCH (08:50)
[2018-12-15] MEDS: FOLIC ACID 400 MCG TAB PO SCH (08:51)
[2018-12-15] MEDS: hydroCHLOROthiazide 25 MG TAB PO SCH (08:51)
[2018-12-15] MEDS: ASPIRIN 81 MG ECTAB PO SCH (08:51)
[2018-12-15] MEDS: BACLOFEN 20 MG TAB PO SCH ×5 (08:52→21:10)
--- NOTE | 2018-12-15 09:03 | Orthopedic Progress Note ---
Date of Service December 15, 2018 Assessment & Plan (1) Fracture of pedicle of thoracic vertebra: This time were hoping to have him qualified for rehab in the next few days. ROME drain is decreasing appropriately. He be okay for discharge by Wednesday. Present on Admission?: Yes Subjective Back pain is controlled. He did not get out of the bed yesterday. But hopefully will today upon arrival of his custom wheelchair. Physical Exam 2 Vital Signs (Past 24 Hours): Last Vital Signs Temp 37.0 C 12/15/18 08:00 Pulse 88 12/15/18 08:00 Resp 20 12/15/18 08:00 BP 109/70 12/15/18 08:00 Pulse Ox 95 12/15/18 08:00 Physical Exam: Exam he is alert and oriented. Neurologically unchanged. Appears comfortable.
[2018-12-15] MEDS: HYDROmorphone INJ 0.5 MG/0.5 ML SYR IV PRN ×2 (09:33→18:05)
[2018-12-15] MEDS: cefTRIAXone SODIUM 1,000 MG in SODIUM CHLOR 0.9% AD-VAN 50 ML IV SCH ×2 (14:20→15:42)
[2018-12-15] MEDS ORDERED: ALBUT/IPRATROP 3MG/0.5MG NEB 3 ML VIAL NEB PRN (16:16)
[2018-12-15] MEDS ORDERED: COUGH DROP (SUGAR FREE) LOZ 24 LOZ/1 BOX BUCCAL ONE (17:31)
[2018-12-15] MEDS ORDERED: NURSING DECISION MEDICATION ONE (18:03)
[2018-12-15] MEDS ORDERED: COUGH DROP (SUGAR FREE) LOZ 24 LOZ/1 BOX BUCCAL PRN (18:13)
[2018-12-15] MEDS: BISACODYL 10 MG SUPP PR PRN (20:43)
[2018-12-15] MEDS: TRAZODONE HCL 50 MG TAB PO SCH (21:03)
[2018-12-15] MEDS: DOXAZOSIN MESYLATE 1 MG TAB PO SCH (21:04)
[2018-12-15] MEDS: FAMOTIDINE 20 MG TAB PO SCH (21:04)
[2018-12-15] MEDS: DULOXETINE HCL 60 MG CAP PO SCH (21:05)
[2018-12-15] MEDS: ENALAPRIL MALEATE 10 MG TAB PO SCH (21:05)
[2018-12-15] MEDS: DOCUSATE SODIUM/SENNA 50/8.6MG TAB PO SCH (21:07)
[2018-12-15] MEDS: [UNRECOGNIZED DRUG - REMARK] PO SCH (21:07)
[2018-12-15] MEDS: HYDROCODONE/ACETAMOPHEN 5/325MG TAB PO PRN (23:46)
[2018-12-16] MEDS: HYDROmorphone INJ 0.5 MG/0.5 ML SYR IV PRN ×2 (05:15→11:11)
--- NOTE | 2018-12-16 06:52 | Hospitalist Progress Note ---
Date of Service December 15, 2018 Assessment & Plan (1) Back pain: s/p OR on 12/[address] Almaraz for thoracic spine fusion -doing well post-op -Continue with pain control, bowel regimen in place Pre-op Hb 13.6 and mean stable at 10.8 post-op day #2 -plan for rehab placement in the next 1-2 days (2) Wheezing: Had wheezing post-op, now resolved, has some mildly productive cough Lung exam is clear No documented hx of COPD Pt quit smoking >30 yrs ago Likely related to intubation during OR, possibly some underlying lung disease -continue nebs Would benefit from formal PFTs as outpt -Encouraged incentive spirometry at the bedside-moved it to where he could reach it on the bedside table -No need for antibiotics at this point (3) UTI (urinary tract infection): Has neurogenic bladder and self-caths at home Pre-op UA on 12/06 + for UTI with cx showing pansensitive ecoli -continue rocephin -day #3 and transition to p.o. antibiotics tomorrow for 4 more days (4) Paralysis: Occurred s/p ortho surgery last year No movement of R LE, some ability to lift L LE -continue Baclofen and lyrica for spasm related to paralysis UE were not affected (5) Myocardial infarction: Hx of [place] x4, stents x6, most recent was to the LAD in [facility] in 2012 -continue ASA, metoprolol -his statin not available here-asked to bring in from home which he did today Resume plavix when able as per Ortho Had Lexiscan stress in 2017 that was normal No evidence of perioperative ID at this point (6) A-fib: Had Afib x 3 months several years ago and was cardioverted, no problems since then and not on anticoagulation (7) Stented coronary artery: As above (8) Hypertension: Controlled -continue home meds of metoprolol, ACEi (substituted here with enalapril for ramipril 5mg bid), HCTZ, and amlodipine 5mg daily (9) DENICE (obstructive sleep apnea): Noncompliant with CPAP per (10) Hyperlipidemia: -on Livalo at home,-his brought it in from home today (11) GERD (gastroesophageal reflux disease): continue PPI, H2 vasquez (12) Depression: stable -continue Cymbalta (13) DVT prophylaxis: SCDs Dispo-remain on med/surg floor, plan to transfer to rehab when ok with Ortho Hospitalist service will sign off at this time -Just needs 4 more days of Keflex, restart Plavix when able to Please call with questions or reconsult if new or acute issues arise. Thank you Subjective Patient reports still having pain in the mid back but is perhaps a little bit better. He is coughing up a little bit of mucus, but remains afebrile. No chest pain or shortness of breath. He is feeling frustrated with his situation and wishes he can walk again. Vital signs remained stable Review of Systems All systems reviewed & are unremarkable except as noted in HPI & below Physical Exam 2 Vital Signs (Past 24 Hours): Last Vital Signs Temp 36.9 C 12/15/18 23:44 Pulse 88 12/15/18 23:17 Resp 18 12/15/18 23:17 BP 118/64 12/15/18 23:17 Pulse Ox 95 12/15/18 23:17 Constitutional: WD/WN, vitals as above + morbidly obese Eyes: PERRL, conjunctivae normal, anicteric sclerae ENMT: external ear and nose normal, oropharynx normal Neck: trachea midline, no thyromegaly Respiratory: normal respiratory effort, lungs clear to auscultation Cardiovascular: RRR, no murmur, no edema Gastrointestinal (Abdomen): normal bowel sounds, soft, nontender, no hepatosplenomegaly Musculoskeletal: Extremities: extremities normal to inspection; no cyanosis and no clubbing Skin: no rashes, warm and dry Neurologic: awake Psychiatric: A+Ox3, euthymic affect Genitourinary: Izquierdo catheter in place draining clear yellow urine Results & Data Laboratory Results 12/15/18 12/15/18 Range/Units 06:56 06:56 WBC 8.31 (4.8-10.8) K/uL RBC 3.75 L (4.7-6.1) M/uL Hgb 10.8 L (14.0-18.0) g/dL Hct 34.3 L (42-52) % MCV 91.5 (80-100) fL MCH 28.8 (25-34) pg MCHC 31.5 L (32-36) g/dL RDW Std Deviation 54.3 H (36.4-46.3) fL RDW Coeff of Jimi 16.2 H (11.5-14.5) % Plt Count 166 (130-400) K/uL MPV 10.5 H (7.4-10.4) fL Immature Gran % (Auto) 0.2 % Neut % (Auto) 72.3 % Lymph % (Auto) 14.8 % [place] % (Auto) 10.6 % Eos % (Auto) 2.0 % Baso % (Auto) 0.1 % Immature Gran # (Auto) 0.02 (0.00-0.02) K/uL Neut # (Auto) 6.00 (1.4-6.5) K/uL Lymph # (Auto) 1.23 (1.2-3.4) K/uL [place] # (Auto) 0.88 H (0.11-0.59) K/uL Eos # (Auto) 0.17 (0-0.5) K/uL Baso # (Auto) 0.01 (0-0.2) K/uL Sodium 140 (136-145) mmol/L Potassium 3.9 (3.5-5.1) mmol/L Chloride 105 (98-107) mmol/L Carbon Dioxide 29 (21-32) mmol/L Anion Gap 6.0 (3-11) BUN 15 (7-18) mg/dl Creatinine 0.79 (0.6-1.4) mg/dl Est Cr Clr Drug Dosing 130.2 ml/min Est GFR ( Amer) 110.8 Est GFR (Non-Af Amer) 95.6 BUN/Creatinine Ratio 19.3 (10-20) Glucose 123 H (70-99) mg/dl Calcium 8.1 L (8.5-10.1) mg/dl _ (1) UTI (urinary tract infection) Urinary tract infection type: catheter-associated UTI Hematuria presence: Indwelling urinary catheter type: unspecified Encounter type: subsequent encounter Qualified Code(s): T83.511D - Infection and inflammatory reaction due to indwelling urethral catheter, subsequent encounter; N39.0 - Urinary tract infection, site not specified (2) A-fib Atrial fibrillation type: paroxysmal Qualified Code(s): I48.0 - Paroxysmal atrial fibrillation (3) Hypertension Hypertension type: essential hypertension Qualified Code(s): I10 - Essential (primary) hypertension (4) Hyperlipidemia Hyperlipidemia type: unspecified Qualified Code(s): E78.5 - Hyperlipidemia, unspecified
[2018-12-16] MEDS: TRAMADOL HCL 50 MG TABLET PO PRN (07:27)
[2018-12-16] MEDS: cephALEXin 500 MG CAP PO SCH ×3 (09:32→20:49)
[2018-12-16] MEDS: PANTOprazole 40 MG TAB PO SCH (09:33)
[2018-12-16] MEDS: METOPROLOL SUCC 50MG EXT REL TAB PO SCH (09:33)
[2018-12-16] MEDS: MULTIVITAMIN TAB PO SCH (09:33)
[2018-12-16] MEDS: BACLOFEN 20 MG TAB PO SCH ×4 (09:33→20:46)
[2018-12-16] MEDS: CYANOCOBALAMIN 500 MCG TABLET (VITAMIN B-12) PO SCH (09:34)
[2018-12-16] MEDS: ASPIRIN 81 MG ECTAB PO SCH (09:34)
[2018-12-16] MEDS: AMLODIPINE BESYLATE 5 MG TAB PO SCH (09:34)
[2018-12-16] MEDS: POTASSIUM CHLORIDE 20 MEQ TABCR PO SCH (09:34)
[2018-12-16] MEDS: CALCIUM 600MG + VIT D 400 IU TAB PO SCH ×2 (09:34→20:51)
[2018-12-16] MEDS: CETIRIZINE HCL 10 MG TABLET PO SCH (09:35)
[2018-12-16] MEDS: FOLIC ACID 400 MCG TAB PO SCH (09:35)
[2018-12-16] MEDS: hydroCHLOROthiazide 25 MG TAB PO SCH (09:35)
[2018-12-16] MEDS: MIRABEGRON ER 25 MG TAB PO SCH (09:35)
[2018-12-16] MEDS: PREGABALIN 100 MG CAP PO SCH ×3 (09:37→20:46)
--- NOTE | 2018-12-16 15:07 | Orthopedic Progress Note ---
Date of Service December 16, 2018 Assessment & Plan (1) Fracture of pedicle of thoracic vertebra: This time we will continue physical therapy throughout the weekend. Monitor his ROME output. Hopefully in the next few days begin transitioning from IV narcotics to p.o.'s. We are awaiting rehab placement hopefully early next week as this is undoubtedly the best disposition for this patient. Present on Admission?: Yes Subjective Patient's back pain is controlled however he is still requiring IV narcotic medications to control his pain. He is tolerating physical therapy relatively well. He does require considerable assistance to transfer from the bed to his chair. Physical Exam 2 Vital Signs (Past 24 Hours): Last Vital Signs Temp 37.0 C 12/16/18 06:52 Pulse 78 12/16/18 06:52 Resp 18 12/16/18 06:52 BP 106/67 12/16/18 06:52 Pulse Ox 93 12/16/18 06:52 Physical Exam: Neurologically unchanged testing to his lower extremities. Upper extremities are strong to testing.
[2018-12-16] MEDS: HYDROCODONE/ACETAMOPHEN 5/325MG TAB PO PRN (19:14)
[2018-12-16] MEDS: BISACODYL 10 MG SUPP PR PRN (20:32)
[2018-12-16] MEDS: [UNRECOGNIZED DRUG - REMARK] PO SCH (20:47)
[2018-12-16] MEDS: FAMOTIDINE 20 MG TAB PO SCH (20:49)
[2018-12-16] MEDS: DOCUSATE SODIUM/SENNA 50/8.6MG TAB PO SCH (20:49)
[2018-12-16] MEDS: DOXAZOSIN MESYLATE 1 MG TAB PO SCH (20:50)
[2018-12-16] MEDS: TRAZODONE HCL 50 MG TAB PO SCH (20:50)
[2018-12-16] MEDS: DULOXETINE HCL 60 MG CAP PO SCH (20:52)
[2018-12-16] MEDS: ENALAPRIL MALEATE 10 MG TAB PO SCH (20:53)
[2018-12-17] MEDS: HYDROCODONE/ACETAMOPHEN 5/325MG TAB PO PRN ×3 (07:17→17:40)
[2018-12-17] MEDS: POTASSIUM CHLORIDE 20 MEQ TABCR PO SCH (08:41)
[2018-12-17] MEDS: MULTIVITAMIN TAB PO SCH (08:41)
[2018-12-17] MEDS: cephALEXin 500 MG CAP PO SCH ×3 (08:41→21:29)
[2018-12-17] MEDS: PANTOprazole 40 MG TAB PO SCH (08:41)
[2018-12-17] MEDS: hydroCHLOROthiazide 25 MG TAB PO SCH (08:41)
[2018-12-17] MEDS: MIRABEGRON ER 25 MG TAB PO SCH (08:42)
[2018-12-17] MEDS: CALCIUM 600MG + VIT D 400 IU TAB PO SCH ×2 (08:42→21:30)
[2018-12-17] MEDS: CETIRIZINE HCL 10 MG TABLET PO SCH (08:42)
[2018-12-17] MEDS: ASPIRIN 81 MG ECTAB PO SCH (08:42)
[2018-12-17] MEDS: CYANOCOBALAMIN 500 MCG TABLET (VITAMIN B-12) PO SCH (08:42)
[2018-12-17] MEDS: FOLIC ACID 400 MCG TAB PO SCH (08:42)
[2018-12-17] MEDS: BACLOFEN 20 MG TAB PO SCH ×4 (08:42→21:29)
[2018-12-17] MEDS: AMLODIPINE BESYLATE 5 MG TAB PO SCH (08:42)
[2018-12-17] MEDS: METOPROLOL SUCC 50MG EXT REL TAB PO SCH (08:43)
[2018-12-17] MEDS: PREGABALIN 100 MG CAP PO SCH ×3 (08:47→21:26)
[2018-12-17] MEDS: HYDROmorphone INJ 0.5 MG/0.5 ML SYR IV PRN ×4 (08:47→15:21)
--- NOTE | 2018-12-17 09:20 | Orthopedic Progress Note ---
Date of Service December 17, 2018 Assessment & Plan (1) Fracture of pedicle of thoracic vertebra: We will continue with pain control efforts. Continue GI and DVT prophylaxis. We will continue with efforts to get him into a rehab facility later this week. Subjective Patient was seen in room 312 bedside this morning. He is postoperative day #4. He states he has some increased pain in the back itself. He is not nauseous. He is tolerating p.o. without difficulties. Physical Exam 2 Vital Signs (Past 24 Hours): Last Vital Signs Temp 37.1 C 12/17/18 08:00 Pulse 76 12/17/18 08:00 Resp 20 12/17/18 08:00 BP 110/72 12/17/18 08:00 Pulse Ox 94 12/17/18 08:00 Physical Exam: On exam he is alert and oriented. He answers questions appropriately. His abdomen soft nontender his calves are supple and nontender. His dressings clean dry and intact.
[2018-12-17] MEDS: TRAZODONE HCL 50 MG TAB PO SCH (21:26)
[2018-12-17] MEDS: DOCUSATE SODIUM/SENNA 50/8.6MG TAB PO SCH (21:28)
[2018-12-17] MEDS: FAMOTIDINE 20 MG TAB PO SCH (21:29)
[2018-12-17] MEDS: ENALAPRIL MALEATE 10 MG TAB PO SCH (21:31)
[2018-12-17] MEDS: DULOXETINE HCL 60 MG CAP PO SCH (21:32)
[2018-12-17] MEDS: [UNRECOGNIZED DRUG - REMARK] PO SCH (21:33)
[2018-12-17] MEDS: DOXAZOSIN MESYLATE 1 MG TAB PO SCH (21:33)
[2018-12-18] MEDS: HYDROmorphone INJ 0.5 MG/0.5 ML SYR IV PRN ×4 (04:34→18:23)
[2018-12-18] MEDS: HYDROCODONE/ACETAMOPHEN 5/325MG TAB PO PRN ×2 (06:01→21:59)
[2018-12-18] MEDS: POTASSIUM CHLORIDE 20 MEQ TABCR PO SCH (08:49)
[2018-12-18] MEDS: hydroCHLOROthiazide 25 MG TAB PO SCH (08:49)
[2018-12-18] MEDS: BACLOFEN 20 MG TAB PO SCH ×4 (08:49→20:24)
[2018-12-18] MEDS: CETIRIZINE HCL 10 MG TABLET PO SCH (08:49)
[2018-12-18] MEDS: FOLIC ACID 400 MCG TAB PO SCH (08:49)
[2018-12-18] MEDS: MIRABEGRON ER 25 MG TAB PO SCH (08:49)
[2018-12-18] MEDS: cephALEXin 500 MG CAP PO SCH ×3 (08:49→20:27)
[2018-12-18] MEDS: AMLODIPINE BESYLATE 5 MG TAB PO SCH (08:49)
[2018-12-18] MEDS: MULTIVITAMIN TAB PO SCH (08:50)
[2018-12-18] MEDS: METOPROLOL SUCC 50MG EXT REL TAB PO SCH (08:50)
[2018-12-18] MEDS: CYANOCOBALAMIN 500 MCG TABLET (VITAMIN B-12) PO SCH (08:50)
[2018-12-18] MEDS: CALCIUM 600MG + VIT D 400 IU TAB PO SCH ×2 (08:50→20:29)
[2018-12-18] MEDS: PANTOprazole 40 MG TAB PO SCH (08:50)
[2018-12-18] MEDS: ASPIRIN 81 MG ECTAB PO SCH (08:50)
[2018-12-18] MEDS: PREGABALIN 100 MG CAP PO SCH ×3 (08:54→21:25)
--- NOTE | 2018-12-18 12:26 | Orthopedic Progress Note ---
Date of Service December 18, 2018 Assessment & Plan (1) Fracture of pedicle of thoracic vertebra: At this time we are awaiting rehab placement. He would be a very poor candidate for a halfway facility as it did not be equipped to handle his needs as a spinal cord injury patient. We will change and DC his dressing today. Present on Admission?: Yes Subjective Back pain is controlled. Still requiring some IV Dilaudid to control all of his symptoms. He is not transferred to the chair yet today. Physical Exam 2 Vital Signs (Past 24 Hours): Last Vital Signs Temp 37.0 C 12/18/18 07:16 Pulse 71 12/18/18 08:50 Resp 18 12/18/18 07:13 BP 123/72 12/18/18 08:50 Pulse Ox 94 12/18/18 07:13 Physical Exam: On exam he does appear alert and oriented today much improved from a day ago. He is relatively comfortable. There is no changes in his neurologic status.
[2018-12-18] MEDS: ACETAMINOPHEN 1,000 MG/100 ML VIAL IV PRN (15:14)
[2018-12-18] MEDS: BISACODYL 10 MG SUPP PR PRN (18:24)
[2018-12-18] MEDS: DOXAZOSIN MESYLATE 1 MG TAB PO SCH (20:28)
[2018-12-18] MEDS: FAMOTIDINE 20 MG TAB PO SCH (20:29)
[2018-12-18] MEDS: [UNRECOGNIZED DRUG - REMARK] PO SCH (20:30)
[2018-12-18] MEDS: DULOXETINE HCL 60 MG CAP PO SCH (20:30)
[2018-12-18] MEDS: TRAZODONE HCL 50 MG TAB PO SCH (20:31)
[2018-12-18] MEDS: DOCUSATE SODIUM/SENNA 50/8.6MG TAB PO SCH (20:31)
[2018-12-18] MEDS: ENALAPRIL MALEATE 10 MG TAB PO SCH (20:33)
[2018-12-19] MEDS: HYDROmorphone INJ 0.5 MG/0.5 ML SYR IV PRN ×3 (08:01→19:50)
[2018-12-19] MEDS: hydroCHLOROthiazide 25 MG TAB PO SCH (09:09)
[2018-12-19] MEDS: cephALEXin 500 MG CAP PO SCH ×3 (09:10→19:58)
[2018-12-19] MEDS: ASPIRIN 81 MG ECTAB PO SCH (09:10)
[2018-12-19] MEDS: CALCIUM 600MG + VIT D 400 IU TAB PO SCH ×2 (09:10→19:58)
[2018-12-19] MEDS: FOLIC ACID 400 MCG TAB PO SCH (09:10)
[2018-12-19] MEDS: POTASSIUM CHLORIDE 20 MEQ TABCR PO SCH (09:11)
[2018-12-19] MEDS: BACLOFEN 20 MG TAB PO SCH ×4 (09:11→19:56)
[2018-12-19] MEDS: MIRABEGRON ER 25 MG TAB PO SCH (09:12)
[2018-12-19] MEDS: AMLODIPINE BESYLATE 5 MG TAB PO SCH (09:12)
[2018-12-19] MEDS: MULTIVITAMIN TAB PO SCH (09:12)
[2018-12-19] MEDS: METOPROLOL SUCC 50MG EXT REL TAB PO SCH (09:13)
[2018-12-19] MEDS: PANTOprazole 40 MG TAB PO SCH (09:13)
[2018-12-19] MEDS: CYANOCOBALAMIN 500 MCG TABLET (VITAMIN B-12) PO SCH (09:14)
[2018-12-19] MEDS: CETIRIZINE HCL 10 MG TABLET PO SCH (09:14)
[2018-12-19] MEDS: PREGABALIN 100 MG CAP PO SCH ×3 (09:19→21:00)
[2018-12-19] MEDS: HYDROCODONE/ACETAMOPHEN 5/325MG TAB PO PRN ×2 (11:28→15:53)
--- NOTE | 2018-12-19 16:10 | Hospitalist Progress Note ---
Date of Service December 19, 2018 Assessment & Plan (1) Back pain: S/p OR on 12/[address] Almaraz for thoracic spine fusion. Doing well post- op. - Post-operative care per primary team. (2) Wheezing: Had some wheezing post-op, now resolved. Also had some mildly productive cough, but this is also resolved at this point. No documented hx of COPD, and patient quit smoking >30 yrs ago. - Likely related to intubation during OR, or possibly some underlying lung disease - Has not used PRN nebs. - Would benefit from formal PFTs as outpatient (3) UTI (urinary tract infection): Has neurogenic bladder and self-caths at home. Pre-op UA on 12/06 was + for UTI with culture showing fulton-sensitive E. coli. Initially on ceftriaxone; then switched to cephalexin. - Finish Keflex on 12/20 (4) Paralysis: Occurred s/p ortho surgery last year. No movement of R LE, some ability to lift L LE. Upper extremities not effected. - Continue Baclofen and lyrica for spasm related to paralysis (5) Myocardial infarction: Hx of MS x4, stents x6, most recent was to the LAD in [facility] in 2011. Had Lexiscan stress in 2017 that was normal. - Continue ASA, metoprolol - Continue pitavastatin. - As of 12/19, Plavix has not been restarted. - Resume Plavix when able as per ortho (6) A-fib: Had Afib x 3 months several years ago and was cardioverted, no problems since then and not on anticoagulation. - No inpatient needs (7) Hypertension: Controlled while inpatient with BPs mostly 110/75. - Continue home meds of metoprolol, ACEi (substituted here with enalapril for ramipril 5mg bid), HCTZ, and amlodipine 5mg daily (8) DENICE (obstructive sleep apnea): Non-compliant with CPAP per . - No inpatient needs (9) Hyperlipidemia: - Continue home pitavastatin (10) GERD (gastroesophageal reflux disease): - Continue PPI, H2 vasquez (11) Depression: Stable. - Continue Cymbalta (12) DVT prophylaxis: SCDs Given medical stability, Hospital Medicine team will sign off. Please re- consult with any questions or concerns. Thank you for letting us assist in the care of this patient! Subjective 63yo M w/ hx of back pain who was presented as a medical consult after surgery. This morning, he has no issues. Denies further back pain. Would like to go to the [facility]. Reports no fevers/chills, chest pain, shortness of breath, abdominal pain, nausea, or vomiting. Physical Exam 2 Vital Signs (Past 24 Hours): Last Vital Signs Temp 36.5 C 12/19/18 15:15 Pulse 70 12/19/18 15:15 Resp 18 12/19/18 15:15 BP 115/75 12/19/18 15:15 Pulse Ox 93 12/19/18 15:15 Constitutional: WD/WN, vitals as above + morbidly obese Eyes: PERRL, conjunctivae normal, anicteric sclerae normal visual reyes by confrontation and + anicteric sclerae ENMT: external ear and nose normal, oropharynx normal Neck: trachea midline, no thyromegaly normal visual inspection and trachea midline Respiratory: normal respiratory effort, lungs clear to auscultation normal respiratory effort; no respiratory distress Auscultation: + wheezes (diffuse , expiratory) Cardiovascular: RRR, no murmur, no edema Rate/Rhythm: regular rate and regular rhythm Gastrointestinal (Abdomen): normal bowel sounds, soft, nontender, no hepatosplenomegaly Inspection/Auscultation: abdomen not distended Percussion/Palpation: abdomen soft; abdomen nontender Musculoskeletal: Head/Neck/Chest: normocephalic and head atraumatic Extremities: extremities normal to inspection; no cyanosis and no clubbing Skin: no rashes, warm and dry Neurologic: awake; not confused Psychiatric: A+Ox3, euthymic affect Orientation: alert and oriented to person _ (1) UTI (urinary tract infection) Encounter type: subsequent encounter Hematuria presence: Indwelling urinary catheter type: unspecified Urinary tract infection type: catheter- associated UTI Qualified Code(s): T83.511D - Infection and inflammatory reaction due to indwelling urethral catheter, subsequent encounter; N39.0 - Urinary tract infection, site not specified (2) A-fib Atrial fibrillation type: paroxysmal Qualified Code(s): I48.0 - Paroxysmal atrial fibrillation (3) Hyperlipidemia Hyperlipidemia type: unspecified Qualified Code(s): E78.5 - Hyperlipidemia, unspecified (4) Hypertension Hypertension type: essential hypertension Qualified Code(s): I10 - Essential (primary) hypertension
[2018-12-19] MEDS: DOCUSATE SODIUM/SENNA 50/8.6MG TAB PO SCH (19:56)
[2018-12-19] MEDS: TRAZODONE HCL 50 MG TAB PO SCH (19:57)
[2018-12-19] MEDS: DOXAZOSIN MESYLATE 1 MG TAB PO SCH (19:58)
[2018-12-19] MEDS: FAMOTIDINE 20 MG TAB PO SCH (19:59)
[2018-12-19] MEDS: DULOXETINE HCL 60 MG CAP PO SCH (19:59)
[2018-12-19] MEDS: ENALAPRIL MALEATE 10 MG TAB PO SCH (20:00)
[2018-12-19] MEDS: [UNRECOGNIZED DRUG - REMARK] PO SCH (20:00)
[2018-12-20] MEDS: HYDROCODONE/ACETAMOPHEN 5/325MG TAB PO PRN ×2 (05:43→18:37)
[2018-12-20] MEDS: MULTIVITAMIN TAB PO SCH (08:46)
[2018-12-20] MEDS: METOPROLOL SUCC 50MG EXT REL TAB PO SCH (08:47)
[2018-12-20] MEDS: PANTOprazole 40 MG TAB PO SCH (08:47)
[2018-12-20] MEDS: CYANOCOBALAMIN 500 MCG TABLET (VITAMIN B-12) PO SCH (08:47)
[2018-12-20] MEDS: AMLODIPINE BESYLATE 5 MG TAB PO SCH (08:47)
[2018-12-20] MEDS: MIRABEGRON ER 25 MG TAB PO SCH (08:47)
[2018-12-20] MEDS: hydroCHLOROthiazide 25 MG TAB PO SCH (08:48)
[2018-12-20] MEDS: FOLIC ACID 400 MCG TAB PO SCH (08:48)
[2018-12-20] MEDS: BACLOFEN 20 MG TAB PO SCH ×4 (08:48→20:47)
[2018-12-20] MEDS: POTASSIUM CHLORIDE 20 MEQ TABCR PO SCH (08:48)
[2018-12-20] MEDS: ASPIRIN 81 MG ECTAB PO SCH (08:48)
[2018-12-20] MEDS: CALCIUM 600MG + VIT D 400 IU TAB PO SCH ×2 (08:48→20:47)
[2018-12-20] MEDS: CETIRIZINE HCL 10 MG TABLET PO SCH (08:48)
[2018-12-20] MEDS: PREGABALIN 100 MG CAP PO SCH ×3 (08:56→21:01)
[2018-12-20] MEDS: HYDROmorphone INJ 0.5 MG/0.5 ML SYR IV PRN ×2 (08:56→16:27)
--- NOTE | 2018-12-20 09:26 | Orthopedic Progress Note ---
Date of Service December 19, 2018 Assessment & Plan (1) Paralysis: This time we will continue to monitor his pain control. We await placement for rehab in the next few days. Present on Admission?: Yes Subjective Thoracic back pain is controlled yet still requiring IV narcotics for adequate pain control. Physical Exam 2 Vital Signs (Past 24 Hours): Last Vital Signs Temp 36.8 C 12/20/18 07:17 Pulse 70 12/20/18 08:45 Resp 18 12/20/18 07:17 BP 128/72 12/20/18 08:45 Pulse Ox 93 12/20/18 07:17 Physical Exam: Physical exam he is alert and oriented today. Appears comfortable. He is able to sit up without significant discomfort. Neurologically unchanged.
--- NOTE | 2018-12-20 10:21 | Orthopedic Progress Note ---
Date of Service December 20, 2018 Assessment & Plan (1) Paralysis: At this time we will continue to encourage transfers from the bed to the chair. We will await final disposition for rehab. Present on Admission?: Yes Subjective Patient's back pain is steadily improving. He is requiring less IV narcotic. Physical Exam 2 Vital Signs (Past 24 Hours): Last Vital Signs Temp 36.8 C 12/20/18 07:17 Pulse 70 12/20/18 08:45 Resp 18 12/20/18 07:17 BP 128/72 12/20/18 08:45 Pulse Ox 93 12/20/18 07:17 Physical Exam: On exam he is sitting in bed. Appears comfortable.
[2018-12-20] MEDS: ACETAMINOPHEN 1,000 MG/100 ML VIAL IV PRN (13:49)
[2018-12-20] MEDS: FLUTICASONE PROPIONATE NA SPR 16 GM BTL PRN (16:35)
[2018-12-20] MEDS: DULOXETINE HCL 60 MG CAP PO SCH (20:47)
[2018-12-20] MEDS: DOXAZOSIN MESYLATE 1 MG TAB PO SCH (20:47)
[2018-12-20] MEDS: TRAZODONE HCL 50 MG TAB PO SCH (20:47)
[2018-12-20] MEDS: ENALAPRIL MALEATE 10 MG TAB PO SCH (20:49)
[2018-12-20] MEDS: FAMOTIDINE 20 MG TAB PO SCH (20:49)
[2018-12-20] MEDS: DOCUSATE SODIUM/SENNA 50/8.6MG TAB PO SCH (20:49)
[2018-12-20] MEDS: [UNRECOGNIZED DRUG - REMARK] PO SCH (20:50)
[2018-12-20] MEDS: BISACODYL 10 MG SUPP PR PRN (20:58)
[2018-12-21] MEDS: HYDROmorphone INJ 0.5 MG/0.5 ML SYR IV PRN (00:32)
[2018-12-21] MEDS: HYDROCODONE/ACETAMOPHEN 5/325MG TAB PO PRN ×3 (07:52→20:40)
[2018-12-21] MEDS: FLUTICASONE PROPIONATE NA SPR 16 GM BTL PRN (07:53)
[2018-12-21] MEDS: METOPROLOL SUCC 50MG EXT REL TAB PO SCH (07:55)
[2018-12-21] MEDS: CALCIUM 600MG + VIT D 400 IU TAB PO SCH ×2 (08:46→20:35)
[2018-12-21] MEDS: BACLOFEN 20 MG TAB PO SCH ×4 (08:46→20:34)
[2018-12-21] MEDS: PANTOprazole 40 MG TAB PO SCH (08:46)
[2018-12-21] MEDS: CYANOCOBALAMIN 500 MCG TABLET (VITAMIN B-12) PO SCH (08:46)
[2018-12-21] MEDS: MIRABEGRON ER 25 MG TAB PO SCH (08:46)
[2018-12-21] MEDS: MULTIVITAMIN TAB PO SCH (08:46)
[2018-12-21] MEDS: AMLODIPINE BESYLATE 5 MG TAB PO SCH (08:46)
[2018-12-21] MEDS: CETIRIZINE HCL 10 MG TABLET PO SCH (08:46)
[2018-12-21] MEDS: FOLIC ACID 400 MCG TAB PO SCH (08:47)
[2018-12-21] MEDS: ASPIRIN 81 MG ECTAB PO SCH (08:48)
[2018-12-21] MEDS: hydroCHLOROthiazide 25 MG TAB PO SCH (08:48)
[2018-12-21] MEDS: PREGABALIN 100 MG CAP PO SCH ×3 (08:52→20:34)
[2018-12-21] MEDS: POTASSIUM CHLORIDE 20 MEQ TABCR PO SCH (09:51)
--- NOTE | 2018-12-21 10:53 | Orthopedic Progress Note ---
Date of Service December 21, 2018 Assessment & Plan (1) Paralysis: At this time we will continue to encourage bed to chair transfers. He stands with assistance. We are awaiting final determination for rehab placement. Hopefully this will be accomplished in the next day or so. Present on Admission?: Yes Subjective Patient feels that his thoracic back symptoms are steadily improving. Physical Exam 2 Vital Signs (Past 24 Hours): Last Vital Signs Temp 36.7 C 12/21/18 07:20 Pulse 72 12/21/18 07:20 Resp 18 12/21/18 07:20 BP 105/67 12/21/18 07:20 Pulse Ox 93 12/21/18 07:20 Physical Exam: On exam he is alert and oriented today. Upper extremity function excellent. No changes with his lower extremity exam.
[2018-12-21] MEDS: FAMOTIDINE 20 MG TAB PO SCH (20:34)
[2018-12-21] MEDS: DOCUSATE SODIUM/SENNA 50/8.6MG TAB PO SCH (20:34)
[2018-12-21] MEDS: DOXAZOSIN MESYLATE 1 MG TAB PO SCH (20:34)
[2018-12-21] MEDS: DULOXETINE HCL 60 MG CAP PO SCH (20:34)
[2018-12-21] MEDS: ENALAPRIL MALEATE 10 MG TAB PO SCH (20:34)
[2018-12-21] MEDS: TRAZODONE HCL 50 MG TAB PO SCH (20:34)
[2018-12-21] MEDS: [UNRECOGNIZED DRUG - REMARK] PO SCH (20:37)
[2018-12-22] MEDS: HYDROCODONE/ACETAMOPHEN 5/325MG TAB PO PRN ×3 (06:21→20:34)
[2018-12-22] MEDS: CYANOCOBALAMIN 500 MCG TABLET (VITAMIN B-12) PO SCH (09:04)
[2018-12-22] MEDS: AMLODIPINE BESYLATE 5 MG TAB PO SCH (09:04)
[2018-12-22] MEDS: FLUTICASONE PROPIONATE NA SPR 16 GM BTL PRN (09:05)
[2018-12-22] MEDS: MULTIVITAMIN TAB PO SCH (09:05)
[2018-12-22] MEDS: MIRABEGRON ER 25 MG TAB PO SCH (09:05)
[2018-12-22] MEDS: PANTOprazole 40 MG TAB PO SCH (09:05)
[2018-12-22] MEDS: BACLOFEN 20 MG TAB PO SCH ×4 (09:05→20:30)
[2018-12-22] MEDS: METOPROLOL SUCC 50MG EXT REL TAB PO SCH (09:05)
[2018-12-22] MEDS: CALCIUM 600MG + VIT D 400 IU TAB PO SCH ×2 (09:06→20:29)
[2018-12-22] MEDS: ASPIRIN 81 MG ECTAB PO SCH (09:06)
[2018-12-22] MEDS: hydroCHLOROthiazide 25 MG TAB PO SCH (09:06)
[2018-12-22] MEDS: POTASSIUM CHLORIDE 20 MEQ TABCR PO SCH (09:06)
[2018-12-22] MEDS: FOLIC ACID 400 MCG TAB PO SCH (09:06)
[2018-12-22] MEDS: CETIRIZINE HCL 10 MG TABLET PO SCH (09:06)
[2018-12-22] MEDS: PREGABALIN 100 MG CAP PO SCH ×3 (09:13→20:30)
[2018-12-22] MEDS ORDERED: ANUSOL SUPP 1 EA PR PRN (10:01)
--- NOTE | 2018-12-22 10:03 | Orthopedic Progress Note ---
Date of Service December 22, 2018 Assessment & Plan (1) Paralysis: This time we will continue transfers from bed to chair. Like him to stand as much as possible with assistance. We will hope for rehab placement the next day or so. Present on Admission?: Yes Subjective Thoracic back pain is steadily improving. Physical Exam 2 Vital Signs (Past 24 Hours): Last Vital Signs Temp 36.6 C 12/22/18 07:19 Pulse 73 12/22/18 09:00 Resp 18 12/22/18 07:19 BP 121/72 12/22/18 09:00 Pulse Ox 91 12/22/18 07:19 Physical Exam: Patient is very alert and oriented today. Is good strength testing upper extremities. Left lower extremity demonstrates steady strength. Right lower extremity still dense weakness.
[2018-12-22] MEDS: TRAZODONE HCL 50 MG TAB PO SCH (20:29)
[2018-12-22] MEDS: DOXAZOSIN MESYLATE 1 MG TAB PO SCH (20:29)
[2018-12-22] MEDS: DULOXETINE HCL 60 MG CAP PO SCH (20:29)
[2018-12-22] MEDS: [UNRECOGNIZED DRUG - REMARK] PO SCH (20:30)
[2018-12-22] MEDS: ENALAPRIL MALEATE 10 MG TAB PO SCH (20:31)
[2018-12-22] MEDS: FAMOTIDINE 20 MG TAB PO SCH (20:31)
[2018-12-22] MEDS: DOCUSATE SODIUM/SENNA 50/8.6MG TAB PO SCH (20:31)
[2018-12-22] MEDS: BISACODYL 10 MG SUPP PR PRN (20:31)
[2018-12-23] MEDS: HYDROCODONE/ACETAMOPHEN 5/325MG TAB PO PRN ×3 (04:47→22:53)
[2018-12-23] MEDS: ASPIRIN 81 MG ECTAB PO SCH (09:42)
[2018-12-23] MEDS: CALCIUM 600MG + VIT D 400 IU TAB PO SCH ×2 (09:42→21:30)
[2018-12-23] MEDS: PANTOprazole 40 MG TAB PO SCH (09:42)
[2018-12-23] MEDS: hydroCHLOROthiazide 25 MG TAB PO SCH (09:42)
[2018-12-23] MEDS: FOLIC ACID 400 MCG TAB PO SCH (09:42)
[2018-12-23] MEDS: CETIRIZINE HCL 10 MG TABLET PO SCH (09:43)
[2018-12-23] MEDS: CYANOCOBALAMIN 500 MCG TABLET (VITAMIN B-12) PO SCH (09:43)
[2018-12-23] MEDS: MIRABEGRON ER 25 MG TAB PO SCH (09:43)
[2018-12-23] MEDS: AMLODIPINE BESYLATE 5 MG TAB PO SCH (09:43)
[2018-12-23] MEDS: MULTIVITAMIN TAB PO SCH (09:43)
[2018-12-23] MEDS: BACLOFEN 20 MG TAB PO SCH ×4 (09:43→21:29)
[2018-12-23] MEDS: FLUTICASONE PROPIONATE NA SPR 16 GM BTL PRN (09:43)
[2018-12-23] MEDS: METOPROLOL SUCC 50MG EXT REL TAB PO SCH (09:43)
[2018-12-23] MEDS: POTASSIUM CHLORIDE 20 MEQ TABCR PO SCH (09:44)
[2018-12-23] MEDS: PREGABALIN 100 MG CAP PO SCH ×3 (09:48→21:30)
--- NOTE | 2018-12-23 10:05 | Orthopedic Progress Note ---
Date of Service December 23, 2018 Assessment & Plan (1) Paralysis: This time we will continue therapy while he is in the hospital. We are awaiting approval for rehab. Present on Admission?: Yes Subjective Back pain is steadily improving. No other complaints today. Physical Exam 2 Vital Signs (Past 24 Hours): Last Vital Signs Temp 36.6 C 12/23/18 07:02 Pulse 70 12/23/18 09:41 Resp 20 12/23/18 09:41 BP 103/63 12/23/18 09:41 Pulse Ox 95 12/23/18 07:02 Physical Exam: On exam he sitting up in bed. He appears comfortable. No changes in neurologic status.
[2018-12-23] MEDS: HYDROmorphone INJ 0.5 MG/0.5 ML SYR IV PRN (16:24)
[2018-12-23] MEDS: ENALAPRIL MALEATE 10 MG TAB PO SCH (21:28)
[2018-12-23] MEDS: BISACODYL 10 MG SUPP PR PRN (21:28)
[2018-12-23] MEDS: DOCUSATE SODIUM/SENNA 50/8.6MG TAB PO SCH (21:28)
[2018-12-23] MEDS: FAMOTIDINE 20 MG TAB PO SCH (21:29)
[2018-12-23] MEDS: TRAZODONE HCL 50 MG TAB PO SCH (21:29)
[2018-12-23] MEDS: DULOXETINE HCL 60 MG CAP PO SCH (21:29)
[2018-12-23] MEDS: DOXAZOSIN MESYLATE 1 MG TAB PO SCH (21:29)
[2018-12-23] MEDS: [UNRECOGNIZED DRUG - REMARK] PO SCH (21:30)
[2018-12-24] MEDS: HYDROCODONE/ACETAMOPHEN 5/325MG TAB PO PRN ×2 (08:24→23:27)
[2018-12-24] MEDS: ASPIRIN 81 MG ECTAB PO SCH (08:56)
[2018-12-24] MEDS: CALCIUM 600MG + VIT D 400 IU TAB PO SCH ×2 (08:56→20:59)
[2018-12-24] MEDS: FOLIC ACID 400 MCG TAB PO SCH (08:57)
[2018-12-24] MEDS: hydroCHLOROthiazide 25 MG TAB PO SCH (08:57)
[2018-12-24] MEDS: POTASSIUM CHLORIDE 20 MEQ TABCR PO SCH (08:58)
[2018-12-24] MEDS: PREGABALIN 100 MG CAP PO SCH ×3 (08:58→21:05)
[2018-12-24] MEDS: BACLOFEN 20 MG TAB PO SCH ×4 (08:58→20:55)
[2018-12-24] MEDS: AMLODIPINE BESYLATE 5 MG TAB PO SCH (08:59)
[2018-12-24] MEDS: MULTIVITAMIN TAB PO SCH (08:59)
[2018-12-24] MEDS: MIRABEGRON ER 25 MG TAB PO SCH (08:59)
[2018-12-24] MEDS: CYANOCOBALAMIN 500 MCG TABLET (VITAMIN B-12) PO SCH (09:00)
[2018-12-24] MEDS: PANTOprazole 40 MG TAB PO SCH (09:00)
[2018-12-24] MEDS: CETIRIZINE HCL 10 MG TABLET PO SCH (09:00)
[2018-12-24] MEDS: METOPROLOL SUCC 50MG EXT REL TAB PO SCH (09:00)
--- NOTE | 2018-12-24 10:32 | Orthopedic Progress Note ---
Date of Service December 24, 2018 Assessment & Plan (1) Paralysis: This time we will continue therapy while he is in the hospital. We are awaiting approval for rehab. Supervising Physician Co-Signing Physician Notes Dr. Barry Almaraz Subjective Back pain is steadily improving. No other complaints today. We are continuing to wait for authorization to discharge to [facility] Physical Exam 2 Vital Signs (Past 24 Hours): Last Vital Signs Temp 36.5 C 12/24/18 07:49 Pulse 69 12/24/18 07:49 Resp 18 12/24/18 07:49 BP 119/75 12/24/18 07:49 Pulse Ox 96 12/24/18 07:49 Physical Exam: Sitting in his motorized wheelchair. No obvious distress. Alert and oriented x3. Strength is unchanged bilateral lower extremities. Constitutional: WD/WN, vitals as above well developed and + morbidly obese Eyes: normal visual reyes by confrontation ENMT: external ear and nose normal, oropharynx normal Neck: normal visual inspection Respiratory: normal respiratory effort Cardiovascular: Extremities: normal capillary refill Gastrointestinal (Abdomen): Inspection/Auscultation: abdomen normal to inspection Skin: no rashes, warm and dry Psychiatric: A+Ox3, euthymic affect Eye Contact: good eye contact
[2018-12-24] MEDS: HYDROmorphone INJ 0.5 MG/0.5 ML SYR IV PRN ×2 (13:19→18:49)
[2018-12-24] MEDS: DULOXETINE HCL 60 MG CAP PO SCH (20:55)
[2018-12-24] MEDS: DOCUSATE SODIUM/SENNA 50/8.6MG TAB PO SCH (20:56)
[2018-12-24] MEDS: FAMOTIDINE 20 MG TAB PO SCH (20:56)
[2018-12-24] MEDS: TRAZODONE HCL 50 MG TAB PO SCH (20:57)
[2018-12-24] MEDS: ENALAPRIL MALEATE 10 MG TAB PO SCH (20:57)
[2018-12-24] MEDS: DOXAZOSIN MESYLATE 1 MG TAB PO SCH (20:58)
[2018-12-24] MEDS: [UNRECOGNIZED DRUG - REMARK] PO SCH (20:59)
[2018-12-25] MEDS: HYDROCODONE/ACETAMOPHEN 5/325MG TAB PO PRN ×4 (06:18→21:50)
[2018-12-25] MEDS: CALCIUM 600MG + VIT D 400 IU TAB PO SCH ×2 (08:39→20:29)
[2018-12-25] MEDS: ASPIRIN 81 MG ECTAB PO SCH (08:40)
[2018-12-25] MEDS: POTASSIUM CHLORIDE 20 MEQ TABCR PO SCH (08:40)
[2018-12-25] MEDS: hydroCHLOROthiazide 25 MG TAB PO SCH (08:40)
[2018-12-25] MEDS: FOLIC ACID 400 MCG TAB PO SCH (08:40)
[2018-12-25] MEDS: BACLOFEN 20 MG TAB PO SCH ×4 (08:41→20:29)
[2018-12-25] MEDS: PREGABALIN 100 MG CAP PO SCH ×3 (08:41→20:28)
[2018-12-25] MEDS: MULTIVITAMIN TAB PO SCH (08:41)
[2018-12-25] MEDS: MIRABEGRON ER 25 MG TAB PO SCH (08:42)
[2018-12-25] MEDS: PANTOprazole 40 MG TAB PO SCH (08:42)
[2018-12-25] MEDS: AMLODIPINE BESYLATE 5 MG TAB PO SCH (08:42)
[2018-12-25] MEDS: HYDROmorphone INJ 0.5 MG/0.5 ML SYR IV PRN (08:43)
[2018-12-25] MEDS: CETIRIZINE HCL 10 MG TABLET PO SCH (08:43)
[2018-12-25] MEDS: METOPROLOL SUCC 50MG EXT REL TAB PO SCH (08:43)
[2018-12-25] MEDS: CYANOCOBALAMIN 500 MCG TABLET (VITAMIN B-12) PO SCH (08:43)
--- NOTE | 2018-12-25 10:16 | Orthopedic Progress Note ---
Date of Service December 25, 2018 Assessment & Plan (1) Paralysis: This time we will continue therapy while he is in the hospital. We are awaiting approval for rehab. Supervising Physician Co-Signing Physician Notes Dr. Barry Almaraz Subjective Back pain is steadily improving. No other complaints today. We are continuing to wait for authorization to discharge to [facility] Physical Exam 2 Vital Signs (Past 24 Hours): Last Vital Signs Temp 36.2 C L 12/25/18 07:15 Pulse 69 12/25/18 07:15 Resp 15 12/25/18 07:15 BP 120/77 12/25/18 07:15 Pulse Ox 98 12/25/18 07:15 Constitutional: WD/WN, vitals as above well developed and + morbidly obese Eyes: normal visual reyes by confrontation ENMT: external ear and nose normal, oropharynx normal Neck: normal visual inspection Respiratory: normal respiratory effort Cardiovascular: Extremities: normal capillary refill Gastrointestinal (Abdomen): Inspection/Auscultation: abdomen normal to inspection Skin: no rashes, warm and dry Psychiatric: A+Ox3, euthymic affect Eye Contact: good eye contact
[2018-12-25] MEDS: ENALAPRIL MALEATE 10 MG TAB PO SCH (20:28)
[2018-12-25] MEDS: DOCUSATE SODIUM/SENNA 50/8.6MG TAB PO SCH (20:28)
[2018-12-25] MEDS: DOXAZOSIN MESYLATE 1 MG TAB PO SCH (20:29)
[2018-12-25] MEDS: FAMOTIDINE 20 MG TAB PO SCH (20:29)
[2018-12-25] MEDS: TRAZODONE HCL 50 MG TAB PO SCH (20:29)
[2018-12-25] MEDS: [UNRECOGNIZED DRUG - REMARK] PO SCH (20:29)
[2018-12-25] MEDS: DULOXETINE HCL 60 MG CAP PO SCH (20:29)
[2018-12-25] MEDS: BISACODYL 10 MG SUPP PR PRN (21:45)
[2018-12-26] MEDS: HYDROCODONE/ACETAMOPHEN 5/325MG TAB PO PRN ×5 (05:21→23:49)
[2018-12-26] MEDS: CALCIUM 600MG + VIT D 400 IU TAB PO SCH ×2 (08:33→21:51)
[2018-12-26] MEDS: ASPIRIN 81 MG ECTAB PO SCH (08:33)
[2018-12-26] MEDS: hydroCHLOROthiazide 25 MG TAB PO SCH (08:34)
[2018-12-26] MEDS: FOLIC ACID 400 MCG TAB PO SCH (08:34)
[2018-12-26] MEDS: POTASSIUM CHLORIDE 20 MEQ TABCR PO SCH (08:34)
[2018-12-26] MEDS: MULTIVITAMIN TAB PO SCH (08:35)
[2018-12-26] MEDS: BACLOFEN 20 MG TAB PO SCH ×4 (08:35→21:50)
[2018-12-26] MEDS: PREGABALIN 100 MG CAP PO SCH ×3 (08:35→21:48)
[2018-12-26] MEDS: MIRABEGRON ER 25 MG TAB PO SCH (08:35)
[2018-12-26] MEDS: PANTOprazole 40 MG TAB PO SCH (08:36)
[2018-12-26] MEDS: METOPROLOL SUCC 50MG EXT REL TAB PO SCH (08:36)
[2018-12-26] MEDS: AMLODIPINE BESYLATE 5 MG TAB PO SCH (08:36)
[2018-12-26] MEDS: CETIRIZINE HCL 10 MG TABLET PO SCH (08:36)
[2018-12-26] MEDS: CYANOCOBALAMIN 500 MCG TABLET (VITAMIN B-12) PO SCH (08:36)
--- NOTE | 2018-12-26 13:42 | Orthopedic Progress Note ---
Date of Service December 26, 2018 Assessment & Plan (1) Paralysis: After discussion with the physician in [place] at the rehab facility. She is working to accept this patient in next day or so. Clearly this is the best disposition for Mr. Snyder. Hopefully he will be discharged Wednesday or Wednesday. Present on Admission?: Yes Subjective Back pain is steadily improving. No complaints today. Physical Exam 2 Vital Signs (Past 24 Hours): Last Vital Signs Temp 36.5 C 12/26/18 07:25 Pulse 75 12/26/18 07:25 Resp 18 12/26/18 07:25 BP 128/74 12/26/18 07:25 Pulse Ox 92 12/26/18 07:25 Physical Exam: Patient is in the chair at the bedside. His dressing is clean dry and intact. There is no erythema no drainage.
[2018-12-26] MEDS: FLUTICASONE PROPIONATE NA SPR 16 GM BTL PRN (16:26)
[2018-12-26] MEDS: BISACODYL 10 MG SUPP PR PRN (21:48)
[2018-12-26] MEDS: [UNRECOGNIZED DRUG - REMARK] PO SCH (21:48)
[2018-12-26] MEDS: FAMOTIDINE 20 MG TAB PO SCH (21:50)
[2018-12-26] MEDS: DOXAZOSIN MESYLATE 1 MG TAB PO SCH (21:51)
[2018-12-26] MEDS: ENALAPRIL MALEATE 10 MG TAB PO SCH (21:51)
[2018-12-26] MEDS: TRAZODONE HCL 50 MG TAB PO SCH (21:52)
[2018-12-26] MEDS: DOCUSATE SODIUM/SENNA 50/8.6MG TAB PO SCH (21:52)
[2018-12-26] MEDS: DULOXETINE HCL 60 MG CAP PO SCH (21:53)
[2018-12-27] MEDS: CALCIUM 600MG + VIT D 400 IU TAB PO SCH ×2 (07:51→20:36)
[2018-12-27] MEDS: ASPIRIN 81 MG ECTAB PO SCH (07:52)
[2018-12-27] MEDS: BACLOFEN 20 MG TAB PO SCH ×4 (07:53→20:35)
[2018-12-27] MEDS: PREGABALIN 100 MG CAP PO SCH ×3 (07:53→20:37)
[2018-12-27] MEDS: hydroCHLOROthiazide 25 MG TAB PO SCH (07:53)
[2018-12-27] MEDS: POTASSIUM CHLORIDE 20 MEQ TABCR PO SCH (07:53)
[2018-12-27] MEDS: MIRABEGRON ER 25 MG TAB PO SCH (07:54)
[2018-12-27] MEDS: PANTOprazole 40 MG TAB PO SCH (07:54)
[2018-12-27] MEDS: AMLODIPINE BESYLATE 5 MG TAB PO SCH (07:54)
[2018-12-27] MEDS: METOPROLOL SUCC 50MG EXT REL TAB PO SCH (07:54)
[2018-12-27] MEDS: MULTIVITAMIN TAB PO SCH (07:54)
[2018-12-27] MEDS: CYANOCOBALAMIN 500 MCG TABLET (VITAMIN B-12) PO SCH (07:55)
[2018-12-27] MEDS: HYDROCODONE/ACETAMOPHEN 5/325MG TAB PO PRN (07:56)
[2018-12-27] MEDS: FOLIC ACID 400 MCG TAB PO SCH (08:16)
[2018-12-27] MEDS: CETIRIZINE HCL 10 MG TABLET PO SCH (08:16)
[2018-12-27] MEDS: HYDROmorphone INJ 0.5 MG/0.5 ML SYR IV PRN (11:03)
[2018-12-27] MEDS: TRAMADOL HCL 50 MG TABLET PO PRN ×2 (17:15→22:07)
[2018-12-27] MEDS: ENALAPRIL MALEATE 10 MG TAB PO SCH (20:34)
[2018-12-27] MEDS: TRAZODONE HCL 50 MG TAB PO SCH (20:34)
[2018-12-27] MEDS: DOCUSATE SODIUM/SENNA 50/8.6MG TAB PO SCH (20:35)
[2018-12-27] MEDS: FAMOTIDINE 20 MG TAB PO SCH (20:35)
[2018-12-27] MEDS: DOXAZOSIN MESYLATE 1 MG TAB PO SCH (20:36)
[2018-12-27] MEDS: DULOXETINE HCL 60 MG CAP PO SCH (20:36)
[2018-12-27] MEDS: [UNRECOGNIZED DRUG - REMARK] PO SCH (20:36)
[2018-12-27] MEDS: BISACODYL 10 MG SUPP PR PRN (20:44)
[2018-12-28] MEDS: TRAMADOL HCL 50 MG TABLET PO PRN (07:10)
[2018-12-28] MEDS: PANTOprazole 40 MG TAB PO SCH (08:17)
[2018-12-28] MEDS: hydroCHLOROthiazide 25 MG TAB PO SCH (08:17)
[2018-12-28] MEDS: MULTIVITAMIN TAB PO SCH (08:17)
[2018-12-28] MEDS: METOPROLOL SUCC 50MG EXT REL TAB PO SCH (08:18)
[2018-12-28] MEDS: CALCIUM 600MG + VIT D 400 IU TAB PO SCH (08:18)
[2018-12-28] MEDS: AMLODIPINE BESYLATE 5 MG TAB PO SCH (08:18)
[2018-12-28] MEDS: CYANOCOBALAMIN 500 MCG TABLET (VITAMIN B-12) PO SCH (08:18)
[2018-12-28] MEDS: FOLIC ACID 400 MCG TAB PO SCH (08:18)
[2018-12-28] MEDS: POTASSIUM CHLORIDE 20 MEQ TABCR PO SCH (08:18)
[2018-12-28] MEDS: CETIRIZINE HCL 10 MG TABLET PO SCH (08:19)
[2018-12-28] MEDS: BACLOFEN 20 MG TAB PO SCH (08:19)
[2018-12-28] MEDS: ASPIRIN 81 MG ECTAB PO SCH (08:19)
[2018-12-28] MEDS: MIRABEGRON ER 25 MG TAB PO SCH (08:19)
[2018-12-28] MEDS: PREGABALIN 100 MG CAP PO SCH (08:21)
--- NOTE | 2018-12-28 16:38 | Discharge Summary ---
Date of Service December 28, 2018 Admission HPI Per Admitting Provider 63 y/o M who was admitted on 12/13 s/p hardware removal and fusion with Dr. Almaraz. Nursing is having a difficult time keeping pt awake post-op. He does wake to physical stimulus but does not stay awake. No PO intake attempted yet. states she was told that surgery went well and without complications. states she was called by PCP last night to notify that pt has a UTI that was found on his pre-op labs. Pt has neurogenic bladder with urinary frequency and pain at baseline. Pt does not stay awake long enough for full ROS. Principal Diagnosis Fractured pedicle with loose instrumentation and chronic persistent back pain. Discharge Data Allergies Allergy/AdvReac Type Severity Reaction Status Date / Time loratadine Allergy Severe BREATHING Verified 12/13/18 07:55 DIFFICULTY shellfish derived Allergy Severe throat Verified 12/13/18 07:55 gets scratchy diphenhydramine Allergy Intermediate HIVES Verified 12/13/18 07:55 Macrolide Antibiotics Allergy Intermediate E-MYCIN=HIVES; Verified 12/13/18 07:55 "MYCINS"--JAUNDICE Fish Containing Products Allergy Mild THROAT Verified 12/13/18 07:55 SWELLS rofecoxib AdvReac Severe CARDIAC SX Verified 12/13/18 07:55 oxycodone AdvReac Intermediate TERRIBLE Verified 12/13/18 07:55 DREAMS,DISORIENTATION Consultations 12/13/18 13:52 Consult Case Management - Discharge Planning Routine Consult Hospitalist Routine 12/27/18 10:07 Burn CD for patient Routine Procedures Performed Operation Date: 12/13/18 07:45 Actual Procedures p T6-T11 Fusion, Use of Infuse and Osteamp(Not Applicable) - Barry Almaraz DO s T9-T11 Removal of Hardware(Not Applicable) - Barry Almaraz DO Ordered Studies 12/13/18 09:05 FL fluoroscopy <1hr Routine FL thoracic spine 2V Routine Hospital Course (1) Paralysis: Patient underwent removal of instrumentation and extension of the fusion from T6-T11. He tolerated this well was taken to orthopedic floor postoperatively. His postoperative course was relatively uneventful. His ROME drain decreased over the normal time. 3-4 days was subsequently removed. His pain would require IV narcotics for about a week. But eventually became much more controlled. He tolerated physical therapy occupational outpatient therapy throughout his stay and was ultimately transferred to inpatient rehab facility in [facility]. Total Time Total Time Spent Total Time Spent (In Minutes): Not applicable Discharge Plan Discharge Items Patient Disposition: Transfer Inpatient Rehab Fac Reason For Visit: Pain in Thoracic Spine Discharge Diagnosis: spinal cord injury with neurodeficits Discharge Goals: Improve function and Increase independence Activity: Per 'Additional Instructions' section Non-emergency contact: Primary Care Provider Call non-emergency contact if: you have any medication questions Follow-up/Referrals: Apolonia Bolanos [Primary Care Provider] - Diet: Regular Addtl Provider Instructions: ACTIVITY RECOMMENDATIONS: SELF CARE INSTRUCTIONS AFTER THORACIC/LUMBAR FUSIONS 1. You may walk to your tolerance. It is good exercise for your legs and back. Expect some back and intermittent leg aches and pains. 2. You may perform "counter-top" level activities (make a sandwich, antonio with a project, etc.). 3. No bending or lifting of more than 10 pounds or back twisting of any nature (roll like a log when turning in bed). 4. You may ride in a car for 20-30 minutes at a time. No driving until after your first visit with your doctor. 5. Frequent changes of position and restricting sitting to 30 minutes at a time will help limit the amount of back spasms and stiffness you may experience. 6. You may discontinue the use of ambulatory aids (cane, crutches, etc.) once your strength and confidence allow. 7. You may injection molding machine operator the shower and let water strike your incision when you arrive home at least once daily. Do not take a tub bath, sit in a hot tub or go into a swimming pool until after your first recheck in the office. SPECIAL CARE INSTRUCTIONS: VERY IMPORTANT TO READ AND REVIEW A. Your surgical incision has been closed with a cosmetic suture under the skin that will dissolve in about 6 weeks. In 14 days, you can use a pair of clean scissors and cut the suture that is left outside of the skin at the ends of your incision. 1. The small skin tapes can be removed 7 days after surgery if they have not fallen off by that point. 2. You may keep the wound open to air as much as possible to promote healing after post-op day number 5 unless told otherwise by your doctor. 3. If you think the wound looks like it is becoming infected (redness or worsening drainage) and/or you are experiencing fever, chill or worsening back pain and muscle spasms, contact the office so that we may evaluate you as soon as possible. B. Complications are uncommon, but please contact us if you have any signs or symptoms of: 1. wound infection (fever higher than 102.5 degrees F, redness, separation of wound, drainage, or increasing pain from the incision) 2. blood clots in legs (pain, swelling, redness and warmth in legs) 3. urinary tract infection (fever higher than 102.5 degrees F, burning upon urination or increased frequency of urination) 4. nerve problems (inability to walk on your toes or heels, numbness, loss of bowel or bladder control) 5. any other symptoms that concern you C. Please call the office at if you have any concerns or questions about your operation or recovery. D. No smoking! Smoking drastically decreases the chance of a solid fusion. E. Do not take any anti-inflammatory medications (Indocin, Advil, Motrin, Aspirin, Naprosyn, etc.) as these may inhibit the chance of a solid fusion. Tylenol is okay to take for pain. MANAGING PAIN AFTER SPINAL SURGERY 1. Narcotic medication is intended for short-term use and will be provided for surgical pain. Surgical pain usually lasts for a period of 4-6 weeks. Narcotic medication includes Percocet, Vicodin, Darvocet, Tylenol #3 or Lortab. 2. Longer-term pain is more appropriately treated with non-narcotic medication such as Tylenol ES. 3. Muscle spasm is not appropriately treated with narcotics. Muscle relaxers such as Soma, Flexeril or Skelaxin can be used along with Tylenol ES. 4. Remember that we all live with some "aches and pains". This is not unusual or uncommon after an injury or as we get older. a. Back pain is expected and may include muscle spasms for 4 to 6 weeks after surgery. The pain should gradually improve. If the pain worsens for no apparent reason, please contact the office. b. Intermittent leg pain may also be experienced and should not be concerned about unless it worsens for no apparent reason. If so, please contact the office. 5. We will provide appropriate medication within the normal guidelines of their prescribed use. We will also be very cautious and aware of potential abuse and extended duration of patients' medication needs. a. Pain medications are for your comfort and to assist with sleep and rest so that the tissue can heal. They are not provided in order to return to normal activity and should not be used through the day. To do so or worsening pain at night can result from ongoing tissue damage and development of tolerance to the prescribed medicine. 6. Please allow 2-3 days to process refills. Prescriptions will not be mailed but must be picked up at the office. FOLLOW UP VISIT: Keep your scheduled follow-up appointment. Any questions, please call the office at . Prescriptions: New hydrocodone-acetaminophen [Rusk] 5-325 mg Tablet 1 - 2 tab PO Q4H PRN (Reason: Pain, Severe) Qty: 30 RF: 0 tramadol 50 mg Tablet 50 mg PO Q4H PRN (Reason: Pain, Moderate) Qty: 30 RF: 0 Continued multivitamin Tablet 1 tab PO QAM RF: 0 acetaminophen 325 mg Tablet 325 mg PO Q6H PRN (Reason: Pain) RF: 0 doxazosin 1 mg Tablet 1 mg PO HS RF: 0 hydrocodone-acetaminophen 5-325 mg Tablet 1 tab PO QID PRN (Reason: Pain) RF: 0 metoprolol succinate 100 mg Tablet Extended Release 24 Hr 100 mg PO QAM RF: 0 meclizine 12.5 mg Tablet 12.5 mg PO TID PRN (Reason: Vertigo) RF: 0 clopidogrel [Plavix] 75 mg Tablet 75 mg PO DAILY RF: 0 amlodipine [Norvasc] 5 mg Tablet 5 mg PO QAM RF: 0 aspirin [Aspir-81] 81 mg Tablet,Delayed Release (Dr/Ec) 81 mg PO DAILY RF: 0 baclofen 20 mg Tablet 20 mg PO QID RF: 0 lansoprazole [Prevacid] 30 mg Capsule,Delayed Release(Dr/Ec) 30 mg PO QAM RF: 0 nitroglycerin [Nitrostat] 0.4 mg Tablet, Sublingual 1 tab Sublingual UD PRN (Reason: Chest Pain) RF: 0 fluticasone [Flonase Allergy Relief] 50 mcg/actuation [place],Suspension 1 spray INTRANASAL DAILY PRN (Reason: PRN) RF: 0 docusate sodium 100 mg Tablet 100 mg PO TID RF: 0 ramipril 5 mg Capsule 10 mg PO HS RF: 0 coenzyme Q10 [CoQ-10] 100 mg Capsule 200 mg PO QPM RF: 0 glycerin (adult) [Suppository Adult] Suppository 1 supp [place] DAILY PRN (Reason: Constipation) RF: 0 calcium carbonate-vitamin D3 [Calcium 500 + D] 500 mg(1,250mg) -200 unit Tablet 1 tab PO BID RF: 0 pregabalin [Lyrica] 200 mg Capsule 200 mg PO TID RF: 0 cetirizine [Zyrtec] 10 mg Capsule 10 mg PO QAM RF: 0 vitamin U48-drnpr acid 500-400 mcg Tablet 1 tab PO QAM RF: 0 pitavastatin calcium [Livalo] 4 mg Tablet 4 mg PO HS RF: 0 mirabegron [Myrbetriq] 50 mg Tablet Extended Release 24 Hr 50 mg PO QAM RF: 0 potassium chloride 20 mEq Tablet Extended Release 20 meq PO QAM RF: 0 famotidine 20 mg Tablet 20 mg PO HS RF: 0 trazodone 50 mg Tablet 0.5 tab PO HS RF: 0 duloxetine 60 mg Capsule,Delayed Release(Dr/Ec) 60 mg PO PM RF: 0 sennosides 8.6 mg Tablet 8.6 mg PO LD RF: 0 lidocaine [Lidocaine Pain Relief] 4 % Adhesive Patch,Medicated 2 patch TOPICAL DAILY RF: 0 hydrochlorothiazide 25 mg Tablet 50 mg PO DAILY RF: 0 Stand-Alone Forms: [facility], Opioid Pain Management Discharge Orders: Discharge Order (Routine); Ordered 12/27/18 Ordered By: Barry Almaraz Skilled Items Patient informed of condition?: Yes DNR: No Discharge Level of Care: Acute rehab Communicable Disease: No Discharge Prognosis: Stable Admission Data Admit Date/Time: 12/13/18 12:08 Attending Provider: Barry Almaraz Admit Provider: Barry Almaraz Primary Care Provider: Apolonia Bolanos Other Providers: Reginaldo Nova Service: Surgical Services Other DC Date/Time DO NOT enter until pt leaves facility: 12/28/18 09:30
== END 2018-12-28 09:30 | DRG 460 ==
LOC: ASU 07:00 → 3E 12:08

== ENCOUNTER 2022-02-13 12:25 | Inpatient (IN) ==
[2022-02-13] MEDS ORDERED: SODIUM CHLORIDE 0.9% 1000ML 1,000 ML IV STA (13:02)
[2022-02-13] MEDS ORDERED: ACETAMINOPHEN 1000 MG/100 ML IV IV STA (13:02)
[2022-02-13] MEDS ORDERED: MoRPHine SULFATE 4 MG/ML 1 ML CARP\\VIAL IV STA (13:02)
[2022-02-13] MEDS ORDERED: ONDANSETRON INJ 2 MG/ML 2 ML VIAL IV STA (13:02)
[2022-02-13 13:12] LABS: Basophils # (auto) 0.01 K/uL (0-0.2); Basophils % (auto) 0.1 %; Eosinophils # (auto) 0.01 K/uL (0-0.5); Eosinophils % (auto) 0.1 %; Hematocrit (blood only) 48.5 % (42-52); Hemoglobin 16.3 g/dL (14.0-18.0); Immature Granulocytes # (auto) 0.04 K/uL (0.00-0.02); Immature Granulocytes % (auto) 0.2 %; Lymphocytes # (auto) 1.17 K/uL (1.2-3.4); Lymphocytes % (auto) 5.9 %; Mean Corpuscular Hgb Conc 33.6 g/dL (32-36); Mean Corpuscular Volume 92.4 fL (80-100); Mean Platelet Volume 11.5 fL (7.4-10.4); Monocytes # (auto) 1.48 K/uL (0.11-0.59); Monocytes % (auto) 7.5 %; Neutrophils # (auto) 17.09 K/uL (1.4-6.5); Neutrophils % (auto) 86.2 %; Platelet Count 341 K/uL (130-400); RDW Coefficient of Variation 16.4 % (11.5-14.5); RDW Standard Deviation 55.2 fL (36.4-46.3); Red Blood Count 5.25 M/uL (4.7-6.1)
[2022-02-13] MEDS ORDERED: CEFEPIME 2,000 MG/20 ML VIAL IV STA (13:15)
[2022-02-13 13:22] LABS: Albumin Level 4.4 gm/dl (3.4-5.0); Bilirubin,Total 1.2 mg/dl (0.2-1.0); Calcium 10.1 mg/dl (8.5-10.1); Partial Thromboplastin Time 26.4 Seconds (21.0-31.0); Potassium 4.4 mmol/L (3.5-5.1); Prothrombin Time 10.9 Seconds (9.0-12.0)
--- NOTE | 2022-02-13 13:32 | XRay Report ---
XR chest 1V portable CLINICAL HISTORY: abd pain TECHNIQUE: Single frontal radiograph of the chest was obtained. Comparison: Comparison is made to chest radiograph 11/02/2020 FINDINGS: Pacemaker is unchanged. The cardiomediastinal silhouette is normal. Lungs are underinflated but clear . Degenerative changes are seen in the left greater than right shoulders. No evidence of pleural effu jason or pneumothorax. IMPRESSION: No acute chest disease. ACT 112: Negative or not required by law. Electronically signed by: Fransico Austin M.D. 02/13/2022 1:31 PM
[2022-02-13 13:36] LABS: Albumin Globulin Ratio 1.6 (0.9-2); BUN Creatinine Ratio 28.9 (10-20); Creatinine Clr Calc Pharmacy 115.2 ml/min; Est GFR (African American) 102.8 ml/min; Est GFR (Non-African American) 88.7 ml/min; Globulin 2.8 gm/dl (2.5-4.0); Total Protein 7.2 gm/dl (6.0-8.3)
--- NOTE | 2022-02-13 13:36 | Emergency Department Note ---
Impression & Plan Diffuse abdominal pain, SBO (small bowel obstruction), Vomiting, Leukocytosis, Acute hyperglycemia ED Provider Note NAME: TAWNYA BUENO AGE: 66 SEX: M : 1955 ARRIVES VIA: Ambulance INFORMANT: [Patient] ED PROVIDER(S): [Viraj Ma MD] CHIEF COMPLAINT: Abdominal pain, vomiting HISTORY OF PRESENT ILLNESS: The patient is a 66-year-old male who is paraplegic at the T10 level. The patient states that for 3 days, he has had some diffuse abdominal pain and bloating and vomiting. He has not had a good bowel movement in a week. He is concerned for bowel obstruction as he has had 1 before. There has been no fever, no respiratory complaints, no cough or congestion. He does have a chronic Izquierdo catheter but the urine has stayed its normal color. The patient has tried an enema as well as some magnesium citrate, this has not helped. He vomited up the mag citrate. The abdominal pain is diffuse and moderate in severity. REVIEW OF SYSTEMS: See HPI for pertinent positives and negatives. A total of ten systems were reviewed and were otherwise negative. PMHx/PSHx: See Below SOCIAL HISTORY: See Below. PHYSICAL EXAM: GENERAL: Patient is in no acute distress. HEENT: No acute trauma, normocephalic atraumatic, mucous membranes moist, no na jillian congestion, no scleral icterus. NECK: No stridor, no adenopathy, no meningismus, trachea is midline. LUNGS: Clear to auscultation bilaterally, no wheeze, no rhonchi, breath sounds equal. HEART: Without murmurs gallops or rubs, regular rate and rhythm. ABDOMEN: Soft, mildly diffusely tender, distention noted, bowel sounds positive, no hernias, no peritonitis. EXTREMITIES: No cyanosis. Moderate bilateral pedal edema. NEUROLOGIC: Oriented x 3, upper extremities move normally, no movement of his lower extremities. SKIN: No rash, no jaundice, no diaphoresis. DIFFERENTIAL DIAGNOSIS: Appendicitis, testicular torsion, diverticulitis, UTI, bacteremia or sepsis, obstruction, mesenteric ischemia, aortic pathology, inflammatory bowel disease, renal colic, PUD, pancreatitis, biliary pathology, hernia, volvulus, constipation, as well as other pathologies. EMERGENCY DEPARTMENT COURSE/PROCEDURES: ECG: Indication is abdominal pain and vomiting. The ECG shows a sinus tachycardia with a rate of 110. There is some nonspecific ST change. There is an old inferior infarct. There is no ST elevation, no PVCs. The QTc is 441. Continuous Cardiac Monitoring: An order was placed for continuous cardiac monitoring. The monitor shows a rate of 119 with sinus tachycardia. MEDICAL DECISION MAKING: There is a significant leukocytosis at 19,000, this would be consistent with infection or the stress of his vomiting. There was a normal hemoglobin and platelet count. No coagulopathy. Renal panel testing did not show renal failure. Glucose was high at 400. Lactic acid level was not elevated making sepsis or bowel ischemia less likely. There were some very subtle liver enzyme elevations. No evidence for pancreatitis. Urinalysis was suspicious for infection, urine culture is pending. COVID testing is pending. Chest film did not show pneumonia or CHF. No free air. Abdominal and pelvis CT shows evidence for a small bowel obstruction. A kidney lesion was noted for which follow-up was suggested. The patient was given IV saline, 2 L. He received IV morphine, IV Zofran and IV cefepime. He received IV Tylenol and IV insulin. The patient is in need of a hospital stay. He has a high white count, he has a small bowel obstruction, he was quite hyperglycemic and did present tachycardic. I spoke with the patient, I talked to general surgery. The patient has consented to an NG tube to low intermittent suction. This was ordered. I spoke with case management, the on-call hospitalist was consulted. 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 GERD (gastroesophageal reflux disease) Hyperlipidemia Hypertension Morbid obesity Myocardial Infarction X4 - LAST WAS 2011 Neurogenic bladder Neurogenic bowel Osteoarthritis Pacemaker MEDTRONIC; 2/2 SYMPTOMATIC BRADYCARDIA- LAST PACER CHECK 12/09/18 Paralysis PARLYSIS/PARATHESIA OF B/L LOWER EXTREMITIES FOLLOWING LOWER THORACIC INTERBODY FUSION 11/2017 Prediabetes Self-catheterizes urinary bladder Q3H WITH 16FRENCH Sleep apnea DOES NOT WEAR CPAP; S/P UPPP 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 Surgical History Fusion of spine T9-T11 Removal of Hardware, T5-T11 Decompression and Fusion: 12/13/18: Grade view 1, MAC#3, ETT 8.5 at [facility] H/O sinus surgery History of arthroscopic surgery of shoulder X2 (LEFT) History of back surgery X4 History of cardiac cath X15; TOTAL OF 6 STENTS History of cardiac pacemaker History of cholecystectomy History of gastric bypass GASTRIC SLEEVE PROCEDURE History of total knee replacement B/L S/P cervical spinal fusion C5-6 S/P UPPP (uvulopalatopharyngoplasty) Status post insertion of intrathecal baclofen pump May 2020-Prometra pump at [facility] Social History Smoking Status: Former smoker Tobacco Type: Cigarettes Second Hand Exposure: No; Hx Alcohol Use: Yes Alcohol type: hard liquor Hx Substance Use: No Preferred Language: Sinhala Communication Ability: Effective Visual Impairment: No Limitations Hearing Ability: Normal Content Assistant Required: No Beliefs That Will Affect Care: None marital status: Current Living Situation: Spouse current occupational status: retired Feels Safe at Home: Yes Assistive Devices: Glasses and Wheelchair Allergies Allergies Allergy/AdvReac Type Severity Reaction Status Date / Time loratadine Allergy Severe BREATHING Verified 02/13/22 14:24 DIFFICULTY shellfish derived Allergy Severe throat Verified 02/13/22 14:24 gets scratchy diphenhydramine Allergy Intermediate HIVES Verified 02/13/22 14:24 Macrolide Antibiotics Allergy Intermediate E-MYCIN=HIVES; Verified 02/13/22 14:24 "MYCINS"--JAUNDICE Fish Containing Products Allergy Mild THROAT Verified 02/13/22 14:24 SWELLS rofecoxib AdvReac Severe CHEST PAIN Verified 02/13/22 14:24 oxycodone AdvReac Intermediate TERRIBLE Verified 02/13/22 14:24 DREAMS,DISORIENTATION Home Meds Home Medications Medication Instructions Recorded Confirmed calcium carbonate 500 mg-vitamin 1 tab PO BID 12/05/18 02/13/22 D3 5 mcg (200 unit) tablet (Calcium 500 + D) cetirizine 10 mg capsule (Zyrtec) 10 mg PO QAM 12/05/18 02/13/22 clopidogrel 75 mg tablet (Plavix) 75 mg PO QAM 12/05/18 02/13/22 coenzyme Q10 100 mg capsule 200 mg PO HS 12/05/18 02/13/22 (CoQ-10) docusate sodium 100 mg tablet 100 mg PO TID 12/05/18 02/13/22 fluticasone propionate 50 1 spray INTRANASAL QAM 12/05/18 02/13/22 mcg/actuation nasal spray,suspension (Flonase Allergy Relief) multivitamin 1 tab PO QAM 12/05/18 02/13/22 nitroglycerin 0.4 mg sublingual 1 tab SUBLINGUAL UD PRN 12/05/18 02/13/22 tablet (Nitrostat) duloxetine 60 mg capsule,delayed 60 mg PO HS 12/06/18 02/13/22 release sennosides 8.6 mg tablet 8.6 mg PO BID 12/06/18 02/13/22 trazodone 50 mg tablet 25 mg PO HS 12/06/18 02/13/22 omeprazole 20 mg capsule,delayed 20 mg PO BID 04/15/20 02/13/22 release metformin 1,000 mg tablet 1,000 mg PO BID 07/02/20 02/13/22 lidocaine 5 % topical ointment 1 applic TOPICAL Q6H g 07/10/20 02/13/22 mirabegron 50 mg tablet,extended 50 mg PO QAM 07/10/20 02/13/22 release 24 hr (Myrbetriq) bisacodyl 10 mg rectal suppository 10 mg WV QAM 09/24/20 02/13/22 (Dulcolax (bisacodyl)) polyethylene glycol 3350 17 8.5 g PO HS 09/24/20 02/13/22 gram/dose oral powder (Miralax) tizanidine 4 mg capsule 4 mg PO TID 09/24/20 02/13/22 aspirin 81 mg tablet,delayed 81 mg PO HS 10/30/20 02/13/22 release hydrocodone 10 mg-acetaminophen 1 tab PO TID PRN 10/30/20 02/13/22 325 mg tablet alendronate 70 mg tablet 70 mg PO WK 02/13/22 02/13/22 bacitracin zinc 500 unit/gram 1 applic TOPICAL QAM 02/13/22 02/13/22 topical ointment carvedilol 12.5 mg tablet 6.25 mg PO BID 02/13/22 02/13/22 cholecalciferol (vitamin D3) 25 50 mcg PO QDL 02/13/22 02/13/22 mcg (1,000 unit) capsule (Vitamin D3) clotrimazole 1 % topical cream 1 applic TOPICAL QAM 02/13/22 02/13/22 cyanocobalamin (vitamin B-12) 500 1,000 mcg PO QAM 02/13/22 02/13/22 mcg tablet (Vitamin B-12) furosemide 40 mg tablet 40 mg PO QAM 02/13/22 02/13/22 ibuprofen 400 mg tablet 400 mg PO Q8H PRN 02/13/22 02/13/22 lidocaine 5 % topical patch 1 patch TRANSDERMAL ONAMOFFPM 02/13/22 02/13/22 lidocaine HCl 2 % mucosal jelly 1 applic TOPICAL QAM 02/13/22 02/13/22 nitroglycerin 400 mcg/spray 1 spray TRANSLINGUAL UD PRN 02/13/22 02/13/22 translingual nystatin 100,000 unit/gram topical 1 applic TOPICAL QAM 02/13/22 02/13/22 powder pitavastatin magnesium 4 mg tablet 4 mg PO HS 02/13/22 02/13/22 (Zypitamag) ramipril 10 mg capsule 10 mg PO BID 02/13/22 02/13/22 spironolactone 25 mg tablet 25 mg PO QAM 02/13/22 02/13/22 Results & Data (ED) Vital Signs Vital Signs - 24 hr 02/13/22 12:27 02/13/22 13:41 Temperature 36.6 C Temperature Source Oral Pulse Rate 121 H Pulse Rate [Left] 108 H Pulse Rhythm Regular Pulse Rhythm [Left] Regular Pulse Strength Normal Pulse Strength [Left] Normal Respiratory Rate 16 18 Respiratory Effort / Characteristics Non-Labored Spontaneous Non-Labored Spontaneous Respiratory Depth Normal Normal Respiratory Pattern Regular Blood Pressure 175/110 H Blood Pressure [Right Arm] 108/73 Blood Pressure Mean 131 Blood Pressure Mean [Right Arm] 84 Blood Pressure Position Lying Blood Pressure Position [Right Arm] Lying Pulse Oximetry 93 96 Oxygen Delivery Method Room Air Nasal Cannula Oxygen Flow Rate 2 Sepsis Recent Fever Within 48 Hours No Sepsis New/Unexplained Change in Mental Status No Sepsis Action Taken by Nursing No Action Required Home Medications Current Medication List: was personally reviewed by me Laboratory Data Attestation: I reviewed the patient's lab results. Result diagrams: 02/13/22 12:30 02/13/22 12:30 Lab Results 02/13/22 02/13/22 02/13/22 Range/Units 12:30 12:30 12:30 WBC 19.80 H (4.8-10.8) K/uL RBC 5.25 (4.7-6.1) M/uL Hgb 16.3 (14.0-18.0) g/dL Hct 48.5 (42-52) % MCV 92.4 (80-100) fL MCH 31.0 (25-34) pg MCHC 33.6 (32-36) g/dL RDW Std Deviation 55.2 H (36.4-46.3) fL RDW Coeff of Jimi 16.4 H (11.5-14.5) % Plt Count 341 (130-400) K/uL MPV 11.5 H (7.4-10.4) fL Immature Gran % (Auto) 0.2 % Neut % (Auto) 86.2 % Lymph % (Auto) 5.9 % Isabela % (Auto) 7.5 % Eos % (Auto) 0.1 % Baso % (Auto) 0.1 % Neut # (Auto) 17.09 H (1.4-6.5) K/uL Lymph # (Auto) 1.17 L (1.2-3.4) K/uL Isabela # (Auto) 1.48 H (0.11-0.59) K/uL Eos # (Auto) 0.01 (0-0.5) K/uL Baso # (Auto) 0.01 (0-0.2) K/uL Immature Gran # (Auto) 0.04 H (0.00-0.02) K/uL PT 10.9 (9.0-12.0) Seconds INR 1.0 (0.9-1.1) APTT 26.4 (21.0-31.0) Seconds PTT Ratio 1.0 Sodium 132 L (136-145) mmol/L Potassium 4.4 (3.5-5.1) mmol/L Chloride 91 L (98-107) mmol/L Carbon Dioxide 30 (21-32) mmol/L Anion Gap 11 (3-11) BUN 26 H (6-23) mg/dl Creatinine 0.90 (0.6-1.4) mg/dl Est Cr Clr Drug Dosing 115.2 ml/min Est GFR ( Amer) 102.8 ml/min Est GFR (Non-Af Amer) 88.7 ml/min BUN/Creatinine Ratio 28.9 H (10-20) Glucose 401 H* (70-99(Fasting)) mg/dl POC Glucose (70-99) mg/dl Lactate (0.4-2.0) mmol/L Calcium 10.1 (8.5-10.1) mg/dl Total Bilirubin 1.2 H (0.2-1.0) mg/dl AST 43 H (13-39) U/L ALT 66 H (7-52) U/L Alkaline Phosphatase 92 (34-104) U/L Total Protein 7.2 (6.0-8.3) gm/dl Albumin 4.4 (3.4-5.0) gm/dl Globulin 2.8 (2.5-4.0) gm/dl Albumin/Globulin Ratio 1.6 (0.9-2) Lipase 14 (11-82) U/L Urine Color Urine Appearance (Clear) Urine pH (4.5-7.5) Ur Specific [place] (1.000-1.030) Urine Protein (Negative) Urine Glucose (UA) (Negative) Urine Ketones (Negative) Urine Blood (Negative) Urine Nitrite (Negative) Urine Bilirubin (Negative) Urine Urobilinogen (Negative) Ur Leukocyte Esterase (Negative) Urine WBC (Auto) (0-5) /hpf Urine RBC (Auto) (0-4) /hpf U Hyaline Cast (Auto) (0-5) /lpf U Epithel Cells (Auto) (0-5) /lpf Urine Bacteria (Auto) (Negative) Amorphous Sediment (None Prsent) 02/13/22 02/13/22 02/13/22 Range/Units 12:45 13:26 15:43 WBC (4.8-10.8) K/uL RBC (4.7-6.1) M/uL Hgb (14.0-18.0) g/dL Hct (42-52) % MCV (80-100) fL MCH (25-34) pg MCHC (32-36) g/dL RDW Std Deviation (36.4-46.3) fL RDW Coeff of Jimi (11.5-14.5) % Plt Count (130-400) K/uL MPV (7.4-10.4) fL Immature Gran % (Auto) % Neut % (Auto) % Lymph % (Auto) % Isabela % (Auto) % Eos % (Auto) % Baso % (Auto) % Neut # (Auto) (1.4-6.5) K/uL Lymph # (Auto) (1.2-3.4) K/uL Isabela # (Auto) (0.11-0.59) K/uL Eos # (Auto) (0-0.5) K/uL Baso # (Auto) (0-0.2) K/uL Immature Gran # (Auto) (0.00-0.02) K/uL PT (9.0-12.0) Seconds INR (0.9-1.1) APTT (21.0-31.0) Seconds PTT Ratio Sodium (136-145) mmol/L Potassium (3.5-5.1) mmol/L Chloride (98-107) mmol/L Carbon Dioxide (21-32) mmol/L Anion Gap (3-11) BUN (6-23) mg/dl Creatinine (0.6-1.4) mg/dl Est Cr Clr Drug Dosing ml/min Est GFR ( Amer) ml/min Est GFR (Non-Af Amer) ml/min BUN/Creatinine Ratio (10-20) Glucose (70-99(Fasting)) mg/dl POC Glucose 345 H* (70-99) mg/dl Lactate 1.5 (0.4-2.0) mmol/L Calcium (8.5-10.1) mg/dl Total Bilirubin (0.2-1.0) mg/dl AST (13-39) U/L ALT (7-52) U/L Alkaline Phosphatase (34-104) U/L Total Protein (6.0-8.3) gm/dl Albumin (3.4-5.0) gm/dl Globulin (2.5-4.0) gm/dl Albumin/Globulin Ratio (0.9-2) Lipase (11-82) U/L Urine Color Yellow Urine Appearance Cloudy A (Clear) Urine pH 5.0 (4.5-7.5) Ur Specific [place] 1.029 (1.000-1.030) Urine Protein Trace H (Negative) Urine Glucose (UA) 3+ H (Negative) Urine Ketones 2+ H (Negative) Urine Blood Trace H (Negative) Urine Nitrite Negative (Negative) Urine Bilirubin Negative (Negative) Urine Urobilinogen Negative (Negative) Ur Leukocyte Esterase Trace H (Negative) Urine WBC (Auto) 10-30 H (0-5) /hpf Urine RBC (Auto) 5-10 H (0-4) /hpf U Hyaline Cast (Auto) 0 (0-5) /lpf U Epithel Cells (Auto) >30 H (0-5) /lpf Urine Bacteria (Auto) 4+ H (Negative) Amorphous Sediment Present A (None Prsent) Administered Medications Discontinued Medications Acetaminophen (Acetaminophen 1000 Mg/100 Ml Iv) 1,000 mg IV NOW STA Stop: 02/13/22 13:03 Last Admin: 02/13/22 13:20 Dose: 1,000 mg Documented by: [id number] Sodium Chloride (Nss 1000ml) 1,000 mls @ 999 mls/hr IV .Q1H1M STA Stop: 02/13/22 14:02 Last Infusion: 02/13/22 14:24 Dose: 0 mls/hr Documented by: [id number] Admin: 02/13/22 13:19 Dose: 999 mls/hr Documented by: [id number] Cefepime HCl (Maxipime) 2,000 mg in 20 mls @ 5 mls/min IV NOW STA; Protocol Stop: 02/13/22 13:18 Last Admin: 02/13/22 13:43 Dose: 5 mls/min Documented by: [id number] Insulin Human Regular (Novolin-R Insulin Per Unit Charge) 10 units IV NOW STA Stop: 02/13/22 13:55 Last Admin: 02/13/22 14:51 Dose: 10 units Documented by: [id number] Cosigned by: [id number] Ioversol (Optiray 320 125ml) 120 ml IV ONCE ONE Stop: 02/13/22 14:36 Last Admin: 02/13/22 14:36 Dose: 120 ml Documented by: [id number] Morphine Sulfate (Morphine Sulfate 4 Mg/Ml 1 Ml Carp\\Vial) 4 mg IV NOW STA Stop: 02/13/22 13:03 Last Admin: 02/13/22 13:21 Dose: 4 mg Documented by: [id number] Ondansetron HCl (Ondansetron Inj 2 Mg/Ml 2 Ml Vial) 4 mg IV NOW STA Stop: 02/13/22 13:03 Last Admin: 02/13/22 13:19 Dose: 4 mg Documented by: [id number] Imaging Data Radiologist's Impression: Abdomen/Pelvis CT 02/13/22 13:02 CT SCAN OF THE ABDOMEN AND PELVIS WITH IV CONTRAST CLINICAL HISTORY: Generalized abdominal pain. Vomiting. COMPARISON STUDY: Abdominal CT dated 10/30/2020 and 12/14/2016. TECHNIQUE: Following the IV administration of 120 cc of Optiray 320, CT scan of the abdomen and pelvis is performed from the lung bases to the proximal femora. Images are reviewed in the axial, sagittal, and coronal planes. IV contrast was administered without complication. A dose lowering technique was utilized adhering to the principles of ALARA. The examination is degraded by large body habitus, with streak artifact from the body wall abutting the CT gantry. There is also erosive and streak artifact from metallic spinal hardware. CT DOSE: 2238.70 mGy.cm FINDINGS: Lung bases: The heart is normal in size and without pericardial effusion. Pacemaker leads are noted. Circumferential wall thickening is noted in the mid to distal esophagus with mucosal hyperemia. The lung bases are clear noting bibasilar scarring/atelectasis. Liver: The contrast-enhanced liver is enlarged, measuring 22.0 cm in length. The liver demonstrates diffusely diminished attenuation consistent with severe hepatic steatosis.. There is no intrahepatic biliary ductal dilatation. The hepatic veins and portal veins are patent. Gallbladder: Surgically absent noting clips in the gallbladder fossa. Spleen: Normal in size and attenuation. Pancreas: Unremarkable. Adrenal glands: Unremarkable. Kidneys: The contrast enhanced kidneys demonstrate cortical atrophy and are without hydronephrosis. The kidneys enhance symmetrically. A 1.6 cm enhancing cortical lesion is suggested in the interpolar left kidney on axial image #255. Abdominal vasculature: The abdominal aorta is normal in course and caliber noting moderate to advanced atherosclerotic calcification. Stomach and bowel: There is a small hiatal hernia. Postoperative change is noted in the stomach. The small bowel loops are distended and fluid-filled, measuring up to 4.5 cm in diameter. The distal/terminal ileum is decompressed, and the appearance is consistent with a small bowel obstruction. A transition point is suggested in the anterior right lower quadrant on image #265. No focally thick walled bowel loops are identified. There is no pneumatosis intestinalis or portal venous gas. There is mild colonic diverticulosis without CT evidence of acute diverticulitis. Fecal retention is seen throughout the colon. The appendix is well-visualized and normal. Peritoneum: There is no intraperitoneal free air or abdominal ascites. Lymphadenopathy: None. Pelvic viscera: The bladder is decompressed around a suprapubic catheter. The prostate is diminutive and heterogeneous. Skeletal structures: The skeletal structures are osteopenic. Spondylotic and extensive postoperative change is seen throughout the thoracolumbar spine. No lytic or blastic lesions are seen. A pain pump catheter is noted in the right lower quadrant abdominal wall. Lead enters the central spinal canal in the lumbar region and extends into the thoracic region. 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 IMPRESSION: 1. Findings are consistent with a small bowel obstruction. A transition point is identified in the right lower quadrant involving the distal ileum. 2. No intraperitoneal free air is identified. There are no thick walled bowel loops, pneumatosis intestinalis, or portal venous gas. 3. There is a new 1.6 cm enhancing cortical lesion suggested in the interpolar left kidney. This is highly suspicious for renal cell carcinoma, and follow-up with urology is recommended. 4. The mid to distal esophagus is thick walled and edematous. Correlate clinically for evidence of esophagitis. 5. Hepatomegaly and severe hepatic steatosis. 6. Additional findings as above. ACT 112: Positive. There are findings on this exam that require communication between the performing entity and the patient following Patient Test Result Information Act ([place] Act 112) guidelines. Electronically signed by: Viraj Palacios M.D. 02/13/2022 3:08 PM Chest X-Ray 02/13/22 13:03 XR chest 1V portable CLINICAL HISTORY: abd pain TECHNIQUE: Single frontal radiograph of the chest was obtained. Comparison: Comparison is made to chest radiograph 11/02/2020 FINDINGS: Pacemaker is unchanged. The cardiomediastinal silhouette is normal. Lungs are underinflated but clear. Degenerative changes are seen in the left greater than right shoulders. No evidence of pleural effusion or pneumothorax. IMPRESSION: No acute chest disease. ACT 112: Negative or not required by law. Electronically signed by: Fransico Austin M.D. 02/13/2022 1:31 PM Discharge Plan Visit Data Chief Complaint: Abdominal Pain Stated Complaint: Abdominal pain ED Provider: Viraj Ma Discharge Problem: Diffuse abdominal pain, SBO (small bowel obstruction), Vomiting, Leukocytosis, Acute hyperglycemia Patient Disposition: Admitted As Inpatient Condition: Fair Forms Stand Alone Forms: [facility] Prescriptions Prescriptions: No Action tizanidine 4 mg capsule 4 mg PO TID RF: 0 polyethylene glycol 3350 [Miralax] 17 gram/dose powder 8.5 g PO HS RF: 0 bisacodyl [Dulcolax (bisacodyl)] 10 mg suppository 10 mg WV QAM RF: 0 metformin 1,000 mg tablet 1,000 mg PO BID RF: 0 lidocaine 5 % ointment 1 applic topical Q6H RF: 0 Myrbetriq 50 mg tablet extended release 24 hr 50 mg PO QAM RF: 0 omeprazole 20 mg capsule,delayed release(DR/EC) 20 mg PO BID RF: 0 multivitamin Tablet 1 tab PO QAM RF: 0 clopidogrel [Plavix] 75 mg Tablet 75 mg PO QAM RF: 0 nitroglycerin [Nitrostat] 0.4 mg Tablet, Sublingual 1 tab Sublingual UD PRN (Reason: Chest Pain) RF: 0 fluticasone propionate [Flonase Allergy Relief] 50 mcg/actuation [place],Suspension 1 spray INTRANASAL QAM RF: 0 docusate sodium 100 mg Tablet 100 mg PO TID RF: 0 coenzyme Q10 [CoQ-10] 100 mg Capsule 200 mg PO HS RF: 0 calcium carbonate-vitamin D3 [Calcium 500 + D] 500 mg(1,250mg) -200 unit Tablet 1 tab PO BID RF: 0 Zyrtec 10 mg Capsule 10 mg PO QAM RF: 0 trazodone 50 mg Tablet 25 mg PO HS RF: 0 duloxetine 60 mg Capsule,Delayed Release(Dr/Ec) 60 mg PO HS RF: 0 sennosides 8.6 mg Tablet 8.6 mg PO BID RF: 0 aspirin 81 mg Tablet,Delayed Release (Dr/Ec) 81 mg PO HS RF: 0 hydrocodone-acetaminophen 10-325 mg Tablet 1 tab PO TID PRN (Reason: Pain) RF: 0 carvedilol 12.5 mg tablet 6.25 mg PO BID RF: 0 alendronate 70 mg tablet 70 mg PO WK RF: 0 bacitracin zinc 500 unit/gram ointment 1 applic TOPICAL QAM RF: 0 cyanocobalamin (vitamin B-12) [Vitamin B-12] 500 mcg Tablet 1,000 mcg PO QAM RF: 0 clotrimazole 1 % cream 1 applic TOPICAL QAM RF: 0 cholecalciferol (vitamin D3) [Vitamin D3] 25 mcg (1,000 unit) Capsule 50 mcg PO QDL RF: 0 furosemide 40 mg tablet 40 mg PO QAM RF: 0 lidocaine HCl 2 % jelly 1 applic topical QAM RF: 0 spironolactone 25 mg tablet 25 mg PO QAM RF: 0 lidocaine 5 % adhesive patch,medicated 1 patch transdermal ONAMOFFPM RF: 0 ibuprofen 400 mg tablet 400 mg PO Q8H PRN (Reason: Pain) RF: 0 nitroglycerin 400 mcg/spray spray,non-aerosol 1 spray translingual UD PRN (Reason: Chest Pain) RF: 0 nystatin 100,000 unit/gram powder 1 applic TOPICAL QAM RF: 0 ramipril 10 mg capsule 10 mg PO BID RF: 0 Zypitamag 4 mg tablet 4 mg PO HS RF: 0 Referrals Referrals: Apolonia Bolanos CRNP [Outside Practitioners] -
[2022-02-13 13:48] LABS: Appearance Urine Cloudy (Clear); Bacteria Urine Automated 4+ (Negative); Bilirubin Urine Negative (Negative); Blood Urine Trace (Negative); Color Urine Yellow; Epithelial Cell Urine Auto >30 /lpf (0-5); Glucose Urine UA 3+ (Negative); Ketones Urine 2+ (Negative); Leukocyte Esterase Urine Trace (Negative); Nitrite Urine Negative (Negative); Protein Urine Trace (Negative); Specific Gravity Urine 1.029 (1.000-1.030); Urobilinogen Urine Negative (Negative)
[2022-02-13] MEDS ORDERED: NovoLIN-R INSULIN PER UNIT CHARGE IV STA (13:54)
[2022-02-13 14:04] LABS: Amorphous Sediment Urine Present (None Prsent)
[2022-02-13 14:05] LABS: Cast Urine Automated 0 /lpf (0-5)
[2022-02-13] MEDS ORDERED: OPTIRAY 320 125ml IV ONE (14:35)
[2022-02-13] MEDS ORDERED: SODIUM CHLORIDE 0.9% 1000ML 1,000 ML IV ONE (15:02)
--- NOTE | 2022-02-13 15:11 | CT Scan Report ---
CT SCAN OF THE ABDOMEN AND PELVIS WITH IV CONTRAST CLINICAL HISTORY: Generalized abdominal pain. Vomiting. COMPARISON STUDY: Abdominal CT dated 10/30/2020 and 12/14/2016. TECHNIQUE: Following the IV administration of 120 cc of Optiray 320, CT scan of the abdomen and pelv is is performed from the lung bases to the proximal femora. Images are reviewed in the axial, sagitta l, and coronal planes. IV contrast was administered without complication. A dose lowering technique w as utilized adhering to the principles of ALARA. The examination is degraded by large body habitus, w ith streak artifact from the body wall abutting the CT gantry. There is also erosive and streak artif act from metallic spinal hardware. CT DOSE: 2238.70 mGy.cm FINDINGS: Lung bases: The heart is normal in size and without pericardial effusion. Pacemaker leads are noted. Circumferential wall thickening is noted in the mid to distal esophagus with mucosal hyperemia. The l nighat bases are clear noting bibasilar scarring/atelectasis. Liver: The contrast-enhanced liver is enlarged, measuring 22.0 cm in length. The liver demonstrates d iffusely diminished attenuation consistent with severe hepatic steatosis.. There is no intrahepatic b iliary ductal dilatation. The hepatic veins and portal veins are patent. Gallbladder: Surgically absent noting clips in the gallbladder fossa. Spleen: Normal in size and attenuation. Pancreas: Unremarkable. Adrenal glands: Unremarkable. Kidneys: The contrast enhanced kidneys demonstrate cortical atrophy and are without hydronephrosis. T he kidneys enhance symmetrically. A 1.6 cm enhancing cortical lesion is suggested in the interpolar l eft kidney on axial image #255. Abdominal vasculature: The abdominal aorta is normal in course and caliber noting moderate to advance d atherosclerotic calcification. Stomach and bowel: There is a small hiatal hernia. Postoperative change is noted in the stomach. The small bowel loops are distended and fluid-filled, measuring up to 4.5 cm in diameter. The distal/term inal ileum is decompressed, and the appearance is consistent with a small bowel obstruction. A transi tion point is suggested in the anterior right lower quadrant on image #265. No focally thick walled b owel loops are identified. There is no pneumatosis intestinalis or portal venous gas. There is mild c olonic diverticulosis without CT evidence of acute diverticulitis. Fecal retention is seen throughout the colon. The appendix is well-visualized and normal. Peritoneum: There is no intraperitoneal free air or abdominal ascites. Lymphadenopathy: None. Pelvic viscera: The bladder is decompressed around a suprapubic catheter. The prostate is diminutive and heterogeneous. Skeletal structures: The skeletal structures are osteopenic. Spondylotic and extensive postoperative change is seen throughout the thoracolumbar spine. No lytic or blastic lesions are seen. A pain pump catheter is noted in the right lower quadrant abdominal wall. Lead enters the central spinal canal in the lumbar region and extends into the thoracic region. 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 IMPRESSION: 1. Findings are consistent with a small bowel obstruction. A transition point is identified in the ri ght lower quadrant involving the distal ileum. 2. No intraperitoneal free air is identified. There are no thick walled bowel loops, pneumatosis inte stinalis, or portal venous gas. 3. There is a new 1.6 cm enhancing cortical lesion suggested in the interpolar left kidney. This is h ighly suspicious for renal cell carcinoma, and follow-up with urology is recommended. 4. The mid to distal esophagus is thick walled and edematous. Correlate clinically for evidence of es ophagitis. 5. Hepatomegaly and severe hepatic steatosis. 6. Additional findings as above. ACT 112: Positive. There are findings on this exam that require communication between the performing entity and the patient following Patient Test Result Information Act ([place] Act 112) guidelines. Electronically signed by: Viraj Palacios M.D. 02/13/2022 3:08 PM
--- NOTE | 2022-02-13 15:28 | History & Physical Report ---
Date of Service February 13, 2022 Assessment & Plan (1) SBO (small bowel obstruction): Plan: -Small bowel loops distended and fluid-filled with distal/terminal ileum decompressed, transition point suggested an anterior right lower quadrant. -NG placed in ED, CXR confirmed correct position. -General surgery consulted, recommending nonoperative treatment for now. -N.p.o. with LRs at 80 cc/hour. -Zofran 4 mg IV every 6 hours as needed. -Famotidine 20 mg IV every 12 hours. -Pain management with Tylenol, Toradol, Dilaudid. -With leukocytosis, otherwise nontoxic and afebrile. No signs/symptoms of infection, suspect this is reactive. Received cefepime in ED, will hold off on further abx. -Will hold aspirin and Plavix for 24 hours in case the need for surgical intervention arises. Plan to restart this tomorrow. (2) CAD (coronary artery disease): Plan: -Long history of numerous drug-eluting stents placed over the years, has been stable for some time. -Hold aspirin, Plavix, carvedilol, statin, ramipril, diuretics while NPO. (3) Hypertension: Plan: -Normotensive now, will hold p.o. BP meds while patient is n.p.o due to SBO -10 mg IV hydralazine every 4 hours as needed for SBP >180. (4) Atrial fibrillation: Plan: -Paroxysmal, pacer in place. Not on anticoagulation. -Follows with Dr. Jacome as outpatient. -Holding p.o. meds for now while n.p.o. due to SBO. (5) Hyperglycemia: Plan: -Glucose on BMP 401, patient is on Metformin only at home. -DC Metformin while here, received 10 units IV insulin in ED. Repeat BGM 345. -While patient is n.p.o., will have BGM every 6 hours with SSI. BGM achs when tolerating p.o. intake. -A1c in AM. -Perhaps elevated in setting of infection. Per , his sugars run in the 140 - 190s at home. -Heart healthy/CC diet once tolerating p.o. intake. (6) Pacemaker: Plan: -Follow-up with cardiology as outpatient. (7) Neurogenic bladder: Plan: -Indwelling Izquierdo catheter in place. - (8) Spastic paraparesis: Plan: -With baclofen pump and Zanaflex 4mg 3 times daily. -Has been having increasing spasms for the past 2 weeks, requesting an IV muscle relaxer in place of p.o. Zanaflex while inpatient. (9) Aortic aneurysm: Plan: -Chronic, stable. -Follows as outpatient with vascular surgery. (10) Aortic insufficiency: Plan: -Echocardiogram from 2018 shows moderate AI. -Follows with outpatient cardiology. (11) GERD (gastroesophageal reflux disease): Plan: -Pepcid 20 mg twice daily at home, will convert to IV while NPO. (12) Renal mass: Plan: -New 1.6 cm enhancing cortical lesion on left kidney, highly suspicious for renal cell carcinoma. Patient reports that he is aware and that it has been present on previous imaging, do not see it reported on CT from 10/2020. -Recommend follow-up with urology upon discharge. (13) LFT elevation: Plan: -CT A/P noted hepatomegaly and severe hepatic steatosis. -Is on Lasix and spironolactone, will continue these when tolerating PO intake. Plan: -Admit to Med/Surg -SCDs and Lovenox for DVT ppx. -DNR/DNI. Did discuss this with both patient and , who is at bedside. Patient states after having several heart attacks, he no longer wishes for any interventions, including chest compressions, defibrillation, medications, intubation in the event that his heart were to stop. History of Present Illness Primary Care Provider: NO PCP Mr. Snyder is a 65y M with a PMH of paraplegia from T10 down with neurogenic bladder & suprapubic catheter, CAD with multiple stents on plavix & ASA, HTN, HLD, paroxysmal afib, pacemaker placement, AAA, GERD, and depression who presents today with complaints of constipation and vomiting. Patient has not had a bowel movement in 4-5 days despite a regular bowel regimen due to his paraplegic status. Last night he took mag citrate to try to have a BM, shortly after he began throwing it up and has been vomiting intermittently ever since. Emesis is nonbloody, he has some abdominal pain with distention. Is otherwise without complaint, no fever/chills, weakness, myalgias, chest pain, palpitations, shortness breath, cough, melena, hematochezia, increased urinary urgency/frequency, dysuria, hematuria. In ED, he was initially hypertensive 175/110, now 108/73 after adequate pain control. Other vital signs within normal limits, stable. CT A/P revealed small bowel loops distended and fluid-filled with distal/terminal ileum decompressed, transition point in anterior RLQ. Also noted is a new 1.6 cm lesion on left kidney suspicious for renal cell carcinoma. Hepatomegaly and severe hepatic steatosis. Labs significant for WBC 19.8, glucose 401, to be 1.2, AST 43, ALT 66. UA contaminated with >30 epi cells, significant for some white blood cells and bacteria with suprapubic catheter in place. CXR unremarkable. Allergies Allergy/AdvReac Type Severity Reaction Status Date / Time loratadine Allergy Severe BREATHING Verified 02/13/22 14:24 DIFFICULTY shellfish derived Allergy Severe throat Verified 02/13/22 14:24 gets scratchy diphenhydramine Allergy Intermediate HIVES Verified 02/13/22 14:24 Macrolide Antibiotics Allergy Intermediate E-MYCIN=HIVES; Verified 02/13/22 14:24 "MYCINS"--JAUNDICE Fish Containing Products Allergy Mild THROAT Verified 02/13/22 14:24 SWELLS rofecoxib AdvReac Severe CHEST PAIN Verified 02/13/22 14:24 oxycodone AdvReac Intermediate TERRIBLE Verified 02/13/22 14:24 DREAMS,DISORIENTATION Home Medications Medication Instructions Recorded Confirmed Type calcium carbonate 500 mg-vitamin 1 tab PO BID 12/05/18 02/13/22 History D3 5 mcg (200 unit) tablet (Calcium 500 + D) cetirizine 10 mg capsule (Zyrtec) 10 mg PO QAM 12/05/18 02/13/22 History clopidogrel 75 mg tablet (Plavix) 75 mg PO QAM 12/05/18 02/13/22 History coenzyme Q10 100 mg capsule 200 mg PO HS 12/05/18 02/13/22 History (CoQ-10) docusate sodium 100 mg tablet 100 mg PO TID 12/05/18 02/13/22 History fluticasone propionate 50 1 spray INTRANASAL QAM 12/05/18 02/13/22 History mcg/actuation nasal spray,suspension (Flonase Allergy Relief) multivitamin 1 tab PO QAM 12/05/18 02/13/22 History nitroglycerin 0.4 mg sublingual 1 tab SUBLINGUAL UD PRN 12/05/18 02/13/22 History tablet (Nitrostat) duloxetine 60 mg capsule,delayed 60 mg PO HS 12/06/18 02/13/22 History release sennosides 8.6 mg tablet 8.6 mg PO BID 12/06/18 02/13/22 History trazodone 50 mg tablet 25 mg PO HS 12/06/18 02/13/22 History omeprazole 20 mg capsule,delayed 20 mg PO BID 04/15/20 02/13/22 History release metformin 1,000 mg tablet 1,000 mg PO BID 07/02/20 02/13/22 History lidocaine 5 % topical ointment 1 applic TOPICAL Q6H g 07/10/20 02/13/22 History mirabegron 50 mg tablet,extended 50 mg PO QAM 07/10/20 02/13/22 History release 24 hr (Myrbetriq) bisacodyl 10 mg rectal suppository 10 mg FL QAM 09/24/20 02/13/22 History (Dulcolax (bisacodyl)) polyethylene glycol 3350 17 8.5 g PO HS 09/24/20 02/13/22 History gram/dose oral powder (Miralax) tizanidine 4 mg capsule 4 mg PO TID 09/24/20 02/13/22 History aspirin 81 mg tablet,delayed 81 mg PO HS 10/30/20 02/13/22 History release hydrocodone 10 mg-acetaminophen 1 tab PO TID PRN 10/30/20 02/13/22 History 325 mg tablet alendronate 70 mg tablet 70 mg PO WK 02/13/22 02/13/22 History bacitracin zinc 500 unit/gram 1 applic TOPICAL QAM 02/13/22 02/13/22 History topical ointment carvedilol 12.5 mg tablet 6.25 mg PO BID 02/13/22 02/13/22 History cholecalciferol (vitamin D3) 25 50 mcg PO QDL 02/13/22 02/13/22 History mcg (1,000 unit) capsule (Vitamin D3) clotrimazole 1 % topical cream 1 applic TOPICAL QAM 02/13/22 02/13/22 History cyanocobalamin (vitamin B-12) 500 1,000 mcg PO QAM 02/13/22 02/13/22 History mcg tablet (Vitamin B-12) furosemide 40 mg tablet 40 mg PO QAM 02/13/22 02/13/22 History ibuprofen 400 mg tablet 400 mg PO Q8H PRN 02/13/22 02/13/22 History lidocaine 5 % topical patch 1 patch TRANSDERMAL ONAMOFFPM 02/13/22 02/13/22 History lidocaine HCl 2 % mucosal jelly 1 applic TOPICAL QAM 02/13/22 02/13/22 History nitroglycerin 400 mcg/spray 1 spray TRANSLINGUAL UD PRN 02/13/22 02/13/22 History translingual nystatin 100,000 unit/gram topical 1 applic TOPICAL QAM 02/13/22 02/13/22 History powder pitavastatin magnesium 4 mg tablet 4 mg PO HS 02/13/22 02/13/22 History (Zypitamag) ramipril 10 mg capsule 10 mg PO BID 02/13/22 02/13/22 History spironolactone 25 mg tablet 25 mg PO QAM 02/13/22 02/13/22 History 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 GERD (gastroesophageal reflux disease) Hyperlipidemia Hypertension Morbid obesity Myocardial Infarction X4 - LAST WAS 2011 Neurogenic bladder Neurogenic bowel Osteoarthritis Pacemaker MEDTRONIC; 2/2 SYMPTOMATIC BRADYCARDIA- LAST PACER CHECK 12/09/18 Paralysis PARLYSIS/PARATHESIA OF B/L LOWER EXTREMITIES FOLLOWING LOWER THORACIC INTERBODY FUSION 11/2017 Prediabetes Self-catheterizes urinary bladder Q3H WITH 16FRENCH Sleep apnea DOES NOT WEAR CPAP; S/P UPPP 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 Surgical History Fusion of spine T9-T11 Removal of Hardware, T5-T11 Decompression and Fusion: 12/13/18: Grade view 1, MAC#3, ETT 8.5 at [facility] H/O sinus surgery History of arthroscopic surgery of shoulder X2 (LEFT) History of back surgery X4 History of cardiac cath X15; TOTAL OF 6 STENTS History of cardiac pacemaker History of cholecystectomy History of gastric bypass GASTRIC SLEEVE PROCEDURE History of total knee replacement B/L S/P cervical spinal fusion C5-6 S/P UPPP (uvulopalatopharyngoplasty) Status post insertion of intrathecal baclofen pump May 2020-Prometra pump at [facility] Social History Smoking Status: Former smoker Tobacco Type: Cigarettes Second Hand Exposure: No; Hx Alcohol Use: Yes Alcohol type: hard liquor Hx Substance Use: No Preferred Language: Kenyan Communication Ability: Effective Visual Impairment: No Limitations Hearing Ability: Normal Estimator Binding Required: No Beliefs That Will Affect Care: None marital status: Current Living Situation: Spouse current occupational status: retired Feels Safe at Home: Yes Assistive Devices: Glasses and Wheelchair Review of Systems Review of Systems: Constitutional: No fever/chills, weakness, fatigue, myalgias, anorexia, night sweats Eyes: No diplopia, no worsening or blurred vision ENT: normal hearing, no trouble swallowing Respiratory: No cough, sputum, dyspnea at rest or on exertion Cardiovascular: No chest pain, tightness or palpitations Abdomen: abdominal pain with nausea, vomiting since last evening, constipated with last BM reportedly 4-5 days ago. : Denies dysuria, hematuria, increased urgency/frequency, urinary retention Musculoskeletal: No joint pain, calf pain, swelling Neurologic: No weakness, numbness/tingling, or balance problems Psychiatric: No anxiety or depression Skin: No rash or itch Physical Exam Physical Exam: General: awake, alert, no apparent distress, wearing 2L NC; patient with visible spasms occurring periodically during my visit Head: Normocephalic, atraumatic ENT: PERRL, EOMI, no pharyngeal exudate, mucous membranes moist Chest: Clear to auscultation, on room air, no adventitious breath sounds Cardiac: Regular rate and rhythm, no murmur, no JVD, normal peripheral pulses, good capillary refill Abdominal: abdomen is distended, nontender to palpation, NABS x 4 quadrants, soft, nontender to palpation, no rebound, guarding Extremities: Normal inspection, no peripheral edema or erythema, calfs nontender to palpation Psych: Normal mood and affect Neuro: AAO x 3, strength intact bilaterally and rated 5/5, no motor deficits, speech is clear, no peripheral sensory deficits Skin: no rash or erythema Results & Data Results & Data ([facility]) Vital Signs (Past 12 Hours) Vital Signs Temp Pulse Pulse Resp BP BP Pulse Ox 02/13/22 13:41 108 H 18 108/73 96 02/13/22 12:27 36.6 C 121 H 16 175/110 H 93 Laboratory Results Abnormal lab results 02/13/22 02/13/22 02/13/22 Range/Units 12:30 12:30 12:45 WBC 19.80 H (4.8-10.8) K/uL RDW Std Deviation 55.2 H (36.4-46.3) fL RDW Coeff of Jimi 16.4 H (11.5-14.5) % MPV 11.5 H (7.4-10.4) fL Neut # (Auto) 17.09 H (1.4-6.5) K/uL Lymph # (Auto) 1.17 L (1.2-3.4) K/uL Terry # (Auto) 1.48 H (0.11-0.59) K/uL Immature Gran # (Auto) 0.04 H (0.00-0.02) K/uL Sodium 132 L (136-145) mmol/L Chloride 91 L (98-107) mmol/L BUN 26 H (6-23) mg/dl BUN/Creatinine Ratio 28.9 H (10-20) Glucose 401 H* (70-99(Fasting)) mg/dl POC Glucose (70-99) mg/dl Total Bilirubin 1.2 H (0.2-1.0) mg/dl AST 43 H (13-39) U/L ALT 66 H (7-52) U/L Urine Appearance Cloudy A (Clear) Urine Protein Trace H (Negative) Urine Glucose (UA) 3+ H (Negative) Urine Ketones 2+ H (Negative) Urine Blood Trace H (Negative) Ur Leukocyte Esterase Trace H (Negative) Urine WBC (Auto) 10-30 H (0-5) /hpf Urine RBC (Auto) 5-10 H (0-4) /hpf U Epithel Cells (Auto) >30 H (0-5) /lpf Urine Bacteria (Auto) 4+ H (Negative) Amorphous Sediment Present A (None Prsent) 02/13/22 Range/Units 15:43 WBC (4.8-10.8) K/uL RDW Std Deviation (36.4-46.3) fL RDW Coeff of Jimi (11.5-14.5) % MPV (7.4-10.4) fL Neut # (Auto) (1.4-6.5) K/uL Lymph # (Auto) (1.2-3.4) K/uL Terry # (Auto) (0.11-0.59) K/uL Immature Gran # (Auto) (0.00-0.02) K/uL Sodium (136-145) mmol/L Chloride (98-107) mmol/L BUN (6-23) mg/dl BUN/Creatinine Ratio (10-20) Glucose (70-99(Fasting)) mg/dl POC Glucose 345 H* (70-99) mg/dl Total Bilirubin (0.2-1.0) mg/dl AST (13-39) U/L ALT (7-52) U/L Urine Appearance (Clear) Urine Protein (Negative) Urine Glucose (UA) (Negative) Urine Ketones (Negative) Urine Blood (Negative) Ur Leukocyte Esterase (Negative) Urine WBC (Auto) (0-5) /hpf Urine RBC (Auto) (0-4) /hpf U Epithel Cells (Auto) (0-5) /lpf Urine Bacteria (Auto) (Negative) Amorphous Sediment (None Prsent) Diagnostic Findings Abdomen/Pelvis CT 02/13/22 13:02 CT SCAN OF THE ABDOMEN AND PELVIS WITH IV CONTRAST CLINICAL HISTORY: Generalized abdominal pain. Vomiting. COMPARISON STUDY: Abdominal CT dated 10/30/2020 and 12/14/2016. TECHNIQUE: Following the IV administration of 120 cc of Optiray 320, CT scan of the abdomen and pelvis is performed from the lung bases to the proximal femora. Images are reviewed in the axial, sagittal, and coronal planes. IV contrast was administered without complication. A dose lowering technique was utilized adhering to the principles of ALARA. The examination is degraded by large body habitus, with streak artifact from the body wall abutting the CT gantry. There is also erosive and streak artifact from metallic spinal hardware. CT DOSE: 2238.70 mGy.cm FINDINGS: Lung bases: The heart is normal in size and without pericardial effusion. Pacemaker leads are noted. Circumferential wall thickening is noted in the mid to distal esophagus with mucosal hyperemia. The lung bases are clear noting bibasilar scarring/atelectasis. Liver: The contrast-enhanced liver is enlarged, measuring 22.0 cm in length. The liver demonstrates diffusely diminished attenuation consistent with severe hepatic steatosis.. There is no intrahepatic biliary ductal dilatation. The hepatic veins and portal veins are patent. Gallbladder: Surgically absent noting clips in the gallbladder fossa. Spleen: Normal in size and attenuation. Pancreas: Unremarkable. Adrenal glands: Unremarkable. Kidneys: The contrast enhanced kidneys demonstrate cortical atrophy and are without hydronephrosis. The kidneys enhance symmetrically. A 1.6 cm enhancing cortical lesion is suggested in the interpolar left kidney on axial image #255. Abdominal vasculature: The abdominal aorta is normal in course and caliber noting moderate to advanced atherosclerotic calcification. Stomach and bowel: There is a small hiatal hernia. Postoperative change is noted in the stomach. The small bowel loops are distended and fluid-filled, measuring up to 4.5 cm in diameter. The distal/terminal ileum is decompressed, and the appearance is consistent with a small bowel obstruction. A transition point is suggested in the anterior right lower quadrant on image #265. No focally thick walled bowel loops are identified. There is no pneumatosis intestinalis or portal venous gas. There is mild colonic diverticulosis without CT evidence of acute diverticulitis. Fecal retention is seen throughout the colon. The appendix is well-visualized and normal. Peritoneum: There is no intraperitoneal free air or abdominal ascites. Lymphadenopathy: None. Pelvic viscera: The bladder is decompressed around a suprapubic catheter. The prostate is diminutive and heterogeneous. Skeletal structures: The skeletal structures are osteopenic. Spondylotic and extensive postoperative change is seen throughout the thoracolumbar spine. No lytic or blastic lesions are seen. A pain pump catheter is noted in the right lower quadrant abdominal wall. Lead enters the central spinal canal in the lumbar region and extends into the thoracic region. 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 IMPRESSION: 1. Findings are consistent with a small bowel obstruction. A transition point is identified in the right lower quadrant involving the distal ileum. 2. No intraperitoneal free air is identified. There are no thick walled bowel loops, pneumatosis intestinalis, or portal venous gas. 3. There is a new 1.6 cm enhancing cortical lesion suggested in the interpolar left kidney. This is highly suspicious for renal cell carcinoma, and follow-up with urology is recommended. 4. The mid to distal esophagus is thick walled and edematous. Correlate clinically for evidence of esophagitis. 5. Hepatomegaly and severe hepatic steatosis. 6. Additional findings as above. ACT 112: Positive. There are findings on this exam that require communication between the performing entity and the patient following Patient Test Result Inf ormation Act ([place] Act 112) guidelines. Electronically signed by: Viraj Palacios M.D. 02/13/2022 3:08 PM Chest X-Ray 02/13/22 13:03 XR chest 1V portable CLINICAL HISTORY: abd pain TECHNIQUE: Single frontal radiograph of the chest was obtained. Comparison: Comparison is made to chest radiograph 11/02/2020 FINDINGS: Pacemaker is unchanged. The cardiomediastinal silhouette is normal. Lungs are underinflated but clear. Degenerative changes are seen in the left greater than right shoulders. No evidence of pleural effusion or pneumothorax. IMPRESSION: No acute chest disease. ACT 112: Negative or not required by law. Electronically signed by: Fransico Austin M.D. 02/13/2022 1:31 PM ECG Additional Comments: Sinus tachycardia Inferior infarct (cited on or before 13-DEC-2018) Possible Anterior infarct , age undetermined Abnormal ECG When compared with ECG of 13-DEC-2018 15:07, Sinus rhythm has replaced Electronic atrial pacemaker Vent. rate has increased BY 40 BPM Questionable change in QRS duration. Code Status & VTE Plan Code Status Full code. Supervising Physician Co-Signing Physician Notes Patient seen and examined, chart reviewed, case discussed with Bernadette Bull PA-C and agree with assessment and plan as above except as otherwise noted. 65-year-old male with a history of paraplegia from T10 down with suprapubic catheter with reduced output and who on CT has evidence of small bowel obstruction with right lower quadrant transition point. Leukocytosis to 19. Patient is sleeping comfortably at provider assessment at bedside, some output from NG tube which has been repositioned just prior to visit. Abdomen is distended but nontender. Breathing comfortably on exam. Tachycardia improved, regular rate and rhythm at bedside assessment. Surgery consulted, recommended for conservative medical management at this time. Continue n.p.o. with IV fluids, bowel rest, NGT. Management of chronic issues as above. Given that no surgery anticipated at this time, would resume antiplatelets as soon as able to tolerate p.o given cardiac history with stents PG Care Time/CCT Total # of Minutes Spent Total Time Spent with Patient: Total time spent is greater than 50% in coordination of care (as documented) at patient's floor/unit and/or counseling patient: Coding Level of Care Code 44372 Initial Inpt Care Lvl 3 Diagnoses SBO (small bowel obstruction) K56.609 CAD (coronary artery disease) I25.10 Atrial fibrillation I48.91 Pacemaker Z95.0 Neurogenic bladder N31.9 Spastic paraparesis Aortic aneurysm I71.9 Hypertension I10 Hypertension type: essential hypertension GERD (gastroesophageal reflux disease) K21.9 Aortic insufficiency I35.1 Renal mass N28.89 Hyperglycemia R73.9 LFT elevation R79.89 (1) Hypertension Hypertension type: essential hypertension Qualified Code(s): I10 - Essential (primary) hypertension
--- NOTE | 2022-02-13 16:07 | Surgery Consultation ---
Date of Consultation February 13, 2022 Assessment & Plan (1) SBO (small bowel obstruction): This is a 65y M with a PMH of paraplegia from T10 down with suprapubic catheter, h/o spinal surgery, CAD with multiple stents on plavix, pacemaker placement, sleeve gastrectomy, cholecystectomy, who presents to the [facility] ED on 02/13/22 with complaints of constipation despite an aggressive bowel regimen associated with nausea/vomiting.Patient has been constipated for the last 3-5 days despite a prescribed bowel regimen the helps him with daily. In the ER today patient underwent a CT a/p that revealed findings consistent with a small bowel obstruction with transition point in the RLQ. WBC 19. On exam patient's abdomen is soft with no specific tenderness to palpation. Patient is tachycardic currently receiving IVF hydration. At this point we recommend a trial of conservative measures for his SBO. He has gotten through on previous admission without surgical intervention. We recommend and NGT and NPO with IVF for bowel rest. We will continue to follow. History of Present Illness History of Present Illness This is a 65y M with a PMH of paraplegia from T10 down with suprapubic catheter, h/o spinal surgery, CAD with multiple stents on plavix, pacemaker placement, sleeve gastrectomy, cholecystectomy, who presents to the [facility] ED on 02/13/22 with complaints of constipation associated with nausea/vomiting.Patient has been constipated for the last 3-5 days despite a prescribed bowel regimen the helps him with daily. She started using Mg Citrate and Enema's with only very small BM's yesterday and today. After patient ate some ukrainian soup yesterday he began feeling unwell and started having multiple bouts of emesis. He has been having ongoing abdominal spasms over the last couple of weeks and have gotten slightly worse of recent. In the ER today patient underwent a CT a/p that revealed findings consistent with a small bowel obstruction with transition point in the RLQ. He is feeling mildly better at the moment. Allergies Allergy/AdvReac Type Severity Reaction Status Date / Time loratadine Allergy Severe BREATHING Verified 02/13/22 14:24 DIFFICULTY shellfish derived Allergy Severe throat Verified 02/13/22 14:24 gets scratchy diphenhydramine Allergy Intermediate HIVES Verified 02/13/22 14:24 Macrolide Antibiotics Allergy Intermediate E-MYCIN=HIVES; Verified 02/13/22 14:24 "MYCINS"--JAUNDICE Fish Containing Products Allergy Mild THROAT Verified 02/13/22 14:24 SWELLS rofecoxib AdvReac Severe CHEST PAIN Verified 02/13/22 14:24 oxycodone AdvReac Intermediate TERRIBLE Verified 02/13/22 14:24 DREAMS,DISORIENTATION Home Medications Medication Instructions Recorded Confirmed Type calcium carbonate 500 mg-vitamin 1 tab PO BID 12/05/18 02/13/22 History D3 5 mcg (200 unit) tablet (Calcium 500 + D) cetirizine 10 mg capsule (Zyrtec) 10 mg PO QAM 12/05/18 02/13/22 History clopidogrel 75 mg tablet (Plavix) 75 mg PO QAM 12/05/18 02/13/22 History coenzyme Q10 100 mg capsule 200 mg PO HS 12/05/18 02/13/22 History (CoQ-10) docusate sodium 100 mg tablet 100 mg PO TID 12/05/18 02/13/22 History fluticasone propionate 50 1 spray INTRANASAL QAM 12/05/18 02/13/22 History mcg/actuation nasal spray,suspension (Flonase Allergy Relief) multivitamin 1 tab PO QAM 12/05/18 02/13/22 History nitroglycerin 0.4 mg sublingual 1 tab SUBLINGUAL UD PRN 12/05/18 02/13/22 History tablet (Nitrostat) duloxetine 60 mg capsule,delayed 60 mg PO HS 12/06/18 02/13/22 History release sennosides 8.6 mg tablet 8.6 mg PO BID 12/06/18 02/13/22 History trazodone 50 mg tablet 25 mg PO HS 12/06/18 02/13/22 History omeprazole 20 mg capsule,delayed 20 mg PO BID 04/15/20 02/13/22 History release metformin 1,000 mg tablet 1,000 mg PO BID 07/02/20 02/13/22 History lidocaine 5 % topical ointment 1 applic TOPICAL Q6H g 07/10/20 02/13/22 History mirabegron 50 mg tablet,extended 50 mg PO QAM 07/10/20 02/13/22 History release 24 hr (Myrbetriq) bisacodyl 10 mg rectal suppository 10 mg DE QAM 09/24/20 02/13/22 History (Dulcolax (bisacodyl)) polyethylene glycol 3350 17 8.5 g PO HS 09/24/20 02/13/22 History gram/dose oral powder (Miralax) tizanidine 4 mg capsule 4 mg PO TID 09/24/20 02/13/22 History aspirin 81 mg tablet,delayed 81 mg PO HS 10/30/20 02/13/22 History release hydrocodone 10 mg-acetaminophen 1 tab PO TID PRN 10/30/20 02/13/22 History 325 mg tablet alendronate 70 mg tablet 70 mg PO WK 02/13/22 02/13/22 History bacitracin zinc 500 unit/gram 1 applic TOPICAL QAM 02/13/22 02/13/22 History topical ointment carvedilol 12.5 mg tablet 6.25 mg PO BID 02/13/22 02/13/22 History cholecalciferol (vitamin D3) 25 50 mcg PO QDL 02/13/22 02/13/22 History mcg (1,000 unit) capsule (Vitamin D3) clotrimazole 1 % topical cream 1 applic TOPICAL QAM 02/13/22 02/13/22 History cyanocobalamin (vitamin B-12) 500 1,000 mcg PO QAM 02/13/22 02/13/22 History mcg tablet (Vitamin B-12) furosemide 40 mg tablet 40 mg PO QAM 02/13/22 02/13/22 History ibuprofen 400 mg tablet 400 mg PO Q8H PRN 02/13/22 02/13/22 History lidocaine 5 % topical patch 1 patch TRANSDERMAL ONAMOFFPM 02/13/22 02/13/22 History lidocaine HCl 2 % mucosal jelly 1 applic TOPICAL QAM 02/13/22 02/13/22 History nitroglycerin 400 mcg/spray 1 spray TRANSLINGUAL UD PRN 02/13/22 02/13/22 History translingual nystatin 100,000 unit/gram topical 1 applic TOPICAL QAM 02/13/22 02/13/22 History powder pitavastatin magnesium 4 mg tablet 4 mg PO HS 02/13/22 02/13/22 History (Zypitamag) ramipril 10 mg capsule 10 mg PO BID 02/13/22 02/13/22 History spironolactone 25 mg tablet 25 mg PO QAM 02/13/22 02/13/22 History baclofen 10 mg tablet 10 mg PO QID 02/14/22 02/14/22 History pregabalin 225 mg capsule 225 mg PO BID 02/14/22 02/14/22 History Patient History Medical History Aortic aneurysm UNDER SURVEILLANCE BY VASCULAR (TESSIE) Aortic insufficiency Atrial fibrillation CAD (coronary artery disease) STENTS X6*; MOST RECENT 08/2012 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 GERD (gastroesophageal reflux disease) Hyperlipidemia Hypertension Morbid obesity Myocardial Infarction X4 - LAST WAS 2011 Neurogenic bladder Neurogenic bowel Osteoarthritis Pacemaker [employer]TR[employer]; 12/03 SYMPTOMATIC BRADYCARDIA- LAST PACER CHECK 12/09/18 Paralysis PARLYSIS/PARATHESIA OF B/L LOWER EXTREMITIES FOLLOWING LOWER THORACIC INTERBODY FUSION 11/2017 Prediabetes Self-catheterizes urinary bladder Q3H WITH 16FRENCH Sleep apnea DOES NOT WEAR CPAP; S/P UPPP 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 Surgical History Fusion of spine T9-T11 Removal of Hardware, T5-T11 Decompression and Fusion: 12/13/18: Grade view 1, MAC#3, ETT 8.5 at [facility] H/O sinus surgery History of arthroscopic surgery of shoulder X2 (LEFT) History of back surgery X4 History of cardiac cath X15; TOTAL OF 6 STENTS History of cardiac pacemaker History of cholecystectomy History of gastric bypass GASTRIC SLEEVE PROCEDURE History of total knee replacement B/L S/P cervical spinal fusion C5-6 S/P UPPP (uvulopalatopharyngoplasty) Status post insertion of intrathecal baclofen pump May 2020-Prometra pump at [facility] Social History Smoking Status: Former smoker Tobacco Type: Cigarettes Second Hand Exposure: No; Do You Dip or Chew Tobacco: No; Hx Alcohol Use: No Hx Substance Use: No Preferred Language: Greek Communication Ability: Effective Visual Impairment: No Limitations Hearing Ability: Normal Property Insurance Claims Examiner Required: No Beliefs That Will Affect Care: None marital status: Current Living Situation: Spouse Current Living Situation Comment: is care 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 current occupational status: retired Other Information That Helps Us Care for You: No Feels Safe at Home: Yes Safety Concerns: Feels Safe At This Time Assistive Devices: Glasses and Wheelchair Assistive Devices Comment: Cpap on recall Review of Systems Constitutional: + sweats; no fever and no chills Respiratory: no dyspnea Gastrointestinal: + abdominal pain, + bloating, + nausea, + vomiting and + constipation Physical Exam Physical Exam: drowsy, but easily awakens and communicative Gastrointestinal (Abdomen): Inspection/Auscultation: + abdomen distended (mild) Percussion/Palpation: abdomen soft; abdomen nontender Results & Data ([facility]) Vital Signs (Past 12 Hours) Vital Signs Temp Pulse Pulse Resp BP BP Pulse Ox 02/13/22 13:41 108 H 18 108/73 96 02/13/22 12:27 36.6 C 121 H 16 175/[address] SCAN OF THE ABDOMEN AND PELVIS WITH IV CONTRAST CLINICAL HISTORY: Generalized abdominal pain. Vomiting. COMPARISON STUDY: Abdominal CT dated 10/30/2020 and 12/14/2016. TECHNIQUE: Following the IV administration of 120 cc of Optiray 320, CT scan of the abdomen and pelvis is performed from the lung bases to the proximal femora. Images are reviewed in the axial, sagittal, and coronal planes. IV contrast was administered without complication. A dose lowering technique was utilized adhering to the principles of ALARA. The examination is degraded by large body habitus, with streak artifact from the body wall abutting the CT gantry. There is also erosive and streak artifact from metallic spinal hardware. CT DOSE: 2238.70 mGy.cm FINDINGS: Lung bases: The heart is normal in size and without pericardial effusion. Pacemaker leads are noted. Circumferential wall thickening is noted in the mid to distal esophagus with mucosal hyperemia. The lung bases are clear noting bibasilar scarring/atelectasis. Liver: The contrast-enhanced liver is enlarged, measuring 22.0 cm in length. The liver demonstrates diffusely diminished attenuation consistent with severe hepatic steatosis.. There is no intrahepatic biliary ductal dilatation. The hepatic veins and portal veins are patent. Gallbladder: Surgically absent noting clips in the gallbladder fossa. Spleen: Normal in size and attenuation. Pancreas: Unremarkable. Adrenal glands: Unremarkable. Kidneys: The contrast enhanced kidneys demonstrate cortical atrophy and are without hydronephrosis. The kidneys enhance symmetrically. A 1.6 cm enhancing cortical lesion is suggested in the interpolar left kidney on axial image #255. Abdominal vasculature: The abdominal aorta is normal in course and caliber noting moderate to advanced atherosclerotic calcification. Stomach and bowel: There is a small hiatal hernia. Postoperative change is noted in the stomach. The small bowel loops are distended and fluid-filled, measuring up to 4.5 cm in diameter. The distal/terminal ileum is decompressed, and the appearance is consistent with a small bowel obstruction. A transition point is suggested in the anterior right lower quadrant on image #265. No focally thick walled bowel loops are identified. There is no pneumatosis intestinalis or portal venous gas. There is mild colonic diverticulosis without CT evidence of acute diverticulitis. Fecal retention is seen throughout the colon. The appendix is well-visualized and normal. Peritoneum: There is no intraperitoneal free air or abdominal ascites. Lymphadenopathy: None. Pelvic viscera: The bladder is decompressed around a suprapubic catheter. The prostate is diminutive and heterogeneous. Skeletal structures: The skeletal structures are osteopenic. Spondylotic and extensive postoperative change is seen throughout the thoracolumbar spine. No lytic or blastic lesions are seen. A pain pump catheter is noted in the right lower quadrant abdominal wall. Lead enters the central spinal canal in the lumbar region and extends into the thoracic region. 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 IMPRESSION: 1. Findings are consistent with a small bowel obstruction. A transition point is identified in the right lower quadrant involving the distal ileum. 2. No intraperitoneal free air is identified. There are no thick walled bowel loops, pneumatosis intestinalis, or portal venous gas. 3. There is a new 1.6 cm enhancing cortical lesion suggested in the interpolar left kidney. This is highly suspicious for renal cell carcinoma, and follow-up with urology is recommended. 4. The mid to distal esophagus is thick walled and edematous. Correlate clinically for evidence of esophagitis. 5. Hepatomegaly and severe hepatic steatosis. 6. Additional findings as above. ACT 112: Positive. There are findings on this exam that require communication between the performing entity and the patient following Patient Test Result Information Act ([place] Act 112) guidelines. Electronically signed by: Viraj Palacios M.D. 02/13/2022 3:08 PM PG Care Time/CCT Total # of Minutes Spent Total Time Spent with Patient: Total time spent is greater than 50% in coordination of care (as documented) at patient's floor/unit and/or counseling patient: Coding Level of Care Code 63036 Initial Inpt Care Lvl 3 Diagnoses SBO (small bowel obstruction) K56.609
--- NOTE | 2022-02-13 16:24 | XRay Report ---
XR KUB/Abdomen 1 view CLINICAL HISTORY: ng tube placement TECHNIQUE: 1 view of the abdomen was obtained. Comparison: Comparison is made to abdomen radiograph 11/02/2020 FINDINGS: Posterior fixation hardware and dual-lead pacemaker are seen. An enteric tube terminates within the s tomach, however the side port appears to lie above the stomach. Lung bases are unremarkable. Partial visualization of bowel gas with suggestion of gaseous distention. IMPRESSION: Enteric tube side-port appears to lie above the diaphragm. The tube could be advanced approximately 1 0 cm for improved positioning. ACT 112: Negative or not required by law. Electronically signed by: Fransico Austin M.D. 02/13/2022 4:21 PM
[2022-02-13] MEDS ORDERED: ONDANSETRON INJ 2 MG/ML 2 ML VIAL IV PRN (19:14)
[2022-02-13] MEDS ORDERED: DEXTROSE 50% 50 ML SYRINGE IV PRN (19:14)
[2022-02-13] MEDS ORDERED: GLUCAGON FOR INJ 1 MG VIAL SQ PRN (19:14)
[2022-02-13] MEDS ORDERED: GLUCOSE 40% GEL 15 GM TUBE PO PRN (19:14)
[2022-02-13] MEDS ORDERED: ACETAMINOPHEN 1000 MG/100 ML IV IV PRN (19:14)
[2022-02-13] MEDS ORDERED: GLUCOSE 10 TABS/TUBE PO PRN (19:14)
[2022-02-13] MEDS ORDERED: CARBOHYDRATES FOR HYPOGLYCEMIA PO PRN (19:14)
[2022-02-13] MEDS ORDERED: NITROGLYCERIN SL 0.4 MG/TAB TAB SL PRN (19:39)
[2022-02-13] MEDS ORDERED: hydrALAZINE HCL 20 MG/ML VIAL IV PRN (20:49)
[2022-02-13] MEDS: LACTATED RINGER'S 1,000 ML IV SCH (22:01)
[2022-02-13] MEDS ORDERED: Nursing to Pharmacy Communication SCH (22:15)
[2022-02-13] MEDS: INSULIN ASPART PER UNIT SC SCH ×2 (22:26→22:27)
[2022-02-14] MEDS: INSULIN ASPART PER UNIT SC SCH ×4 (00:17→21:48)
[2022-02-14] MEDS: MoRPHine SULFATE 2 MG/ML CARP IV PRN ×3 (06:30→19:45)
[2022-02-14 06:50] LABS: BUN Creatinine Ratio 34.5 (10-20); Calcium 8.5 mg/dl (8.5-10.1); Creatinine Clr Calc Pharmacy 116.4 ml/min; Est GFR (African American) 104.2 ml/min; Est GFR (Non-African American) 89.9 ml/min; Magnesium 2.6 mg/dl (1.7-2.4); Potassium 4.2 mmol/L (3.5-5.1)
--- NOTE | 2022-02-14 06:52 | Electrocardiogram Report ---
Test Reason : Blood Pressure : / mmHG Vent. Rate : 110 BPM Atrial Rate : 110 BPM P-R Int : 156 ms QRS Dur : 084 ms QT Int : 326 ms P-R-T Axes : 053 -17 090 degrees QTc Int : 441 ms Sinus tachycardia Inferior infarct (cited on or before 13-DEC-2018) Possible Anterior infarct , age undetermined Nonspecific T wave abnormality Abnormal ECG When compared with ECG of 13-DEC-2018 15:07, Sinus rhythm has replaced Electronic atrial pacemaker Vent. rate has increased BY 40 BPM Confirmed by Pedro Burks ([id number]) on 02/14/2022 6:52:33 AM Referred By: Confirmed By:Pedro Burks
[2022-02-14 07:27] LABS: Basophils # (auto) 0.02 K/uL (0-0.2); Basophils % (auto) 0.2 %; Eosinophils # (auto) 0.34 K/uL (0-0.5); Eosinophils % (auto) 3.5 %; Hematocrit (blood only) 44.2 % (42-52); Hemoglobin 14.5 g/dL (14.0-18.0); Immature Granulocytes # (auto) 0.01 K/uL (0.00-0.02); Immature Granulocytes % (auto) 0.1 %; Lymphocytes # (auto) 1.48 K/uL (1.2-3.4); Lymphocytes % (auto) 15.2 %; Mean Corpuscular Hemoglobin 30.9 pg (25-34); Mean Corpuscular Hgb Conc 32.8 g/dL (32-36); Mean Platelet Volume 10.9 fL (7.4-10.4); Monocytes # (auto) 1.13 K/uL (0.11-0.59); Monocytes % (auto) 11.6 %; Neutrophils # (auto) 6.75 K/uL (1.4-6.5); Neutrophils % (auto) 69.4 %; Platelet Count 265 K/uL (130-400); RDW Coefficient of Variation 16.9 % (11.5-14.5); RDW Standard Deviation 58.3 fL (36.4-46.3); White Blood Count 9.73 K/uL (4.8-10.8)
[2022-02-14] MEDS: CHLORASEPTIC 1.4% SOLN 180 ML BTL MT PRN ×4 (08:15→16:54)
[2022-02-14] MEDS: BACITRACIN OINT 15 GM TUBE TOP SCH (08:18)
[2022-02-14] MEDS: CLOTRIMAZOLE 1% CR 15 GM TUBE TOP SCH (08:18)
[2022-02-14 08:34] LABS: Estimated Average Glucose 223 mg/dl; Hemoglobin A1C 9.4 % (4.5-5.6)
--- NOTE | 2022-02-14 10:39 | Surgery Progress Note ---
Date of Service February 14, 2022 Assessment & Plan (1) SBO (small bowel obstruction): Plan: Patient here with concern for SBO NGT placed yesterday, so far 125cc documented Pt is drowsy, but reports no belly pain/nausea at time being WBC improved to 9 (19) KUB ordered and we will f/u on results (appears there may be gas in colon), but anticipate keeping NGT in until further return of bowel function as above. labs much improved. KUB now shows no sbo will perform clamp trial and d/c ngt and start clears if tolerates clamp trial. Admission and Anticipated Discharge Date Admission Date: February 13, 2022 Subjective Patient drowsy this AM. But he does deny abdominal pain/nausea currently. Physical Exam Physical Exam: drowsy Gastrointestinal (Abdomen): Percussion/Palpation: abdomen nontender NGT with 125cc documented Results & Data ([facility]) Vital Signs (Past 12 Hours) Vital Signs Temp Pulse Resp BP BP Pulse Ox 02/14/22 08:10 36.7 C 86 16 165/89 H 97 02/13/22 22:51 36.6 C 90 18 106/73 97 PG Care Time/CCT Total # of Minutes Spent Total Time Spent with Patient: Total time spent is greater than 50% in coordination of care (as documented) at patient's floor/unit and/or counseling patient: Coding Level of Care Code 98320 Subseq Hosp Care Lvl 3 Diagnoses SBO (small bowel obstruction) K56.609
--- NOTE | 2022-02-14 10:48 | XRay Report ---
XR KUB/Abdomen 1 view CLINICAL HISTORY: Evaluate suspected small bowel obstruction. COMPARISON STUDY: 02/13/2022 TECHNIQUE: Multiple supine radiographs were obtained. FINDINGS: The bowel gas pattern is within normal limits without evidence for dilatation or obstruction. NG tube is seen within the region of the gastric fundus. There is no evidence for organomegaly or gross intr a-abdominal mass. No abnormal calcifications are seen along the course of the urinary tracts bilatera lly. No acute osseous pathology. IMPRESSION: 1. No acute intra-abdominal abnormality. ACT 112: Negative or not required by law. Electronically signed by: Diego Santana M.D. 02/14/2022 10:47 AM
[2022-02-14] MEDS: LIDOCAINE 5% 1 PATCH TD SCH (12:04)
[2022-02-14] MEDS: NYSTATIN POWDER 15GM BTL EXT SCH (12:06)
[2022-02-14] MEDS ORDERED: Nursing to Pharmacy Communication SCH ×2 (12:30→16:45)
[2022-02-14] MEDS: bisacodyL 10 MG SUPP PR SCH ×2 (13:25→13:49)
[2022-02-14] MEDS: LACTATED RINGER'S 1,000 ML IV SCH (15:30)
--- NOTE | 2022-02-14 15:30 | Hospitalist Progress Note ---
Date of Service February 14, 2022 Assessment & Plan (1) SBO (small bowel obstruction): Plan: -Small bowel loops distended and fluid-filled with distal/terminal ileum decompressed, transition point suggested an anterior right lower quadrant. -Appreciate surgery management, appears to be improving -Zofran 4 mg IV every 6 hours as needed. -Famotidine 20 mg IV every 12 hours. -Pain management with Tylenol, Toradol, Dilaudid. -With leukocytosis, otherwise nontoxic and afebrile. No signs/symptoms of infection, suspect this is reactive. Received cefepime in ED, will hold off on further abx. (2) CAD (coronary artery disease): Plan: -Long history of numerous drug-eluting stents placed over the years, has been stable for some time. -Hold aspirin, Plavix, carvedilol, statin, ramipril, diuretics while NPO. (3) Hypertension: Plan: -Normotensive now, continue to hold carvedilol, ramipril, furosemide and spironolactone. (4) Atrial fibrillation: Plan: -Paroxysmal, pacer in place. Not on anticoagulation. -Follows with Dr. Jacome as outpatient. -Holding p.o. meds for now while n.p.o. due to SBO. (5) Hyperglycemia: Plan: -Glucose on BMP 401, patient is on Metformin only at home. -DC Metformin while here -Continue Novolog: Goal BSG Range: Low 100 mg/dL, High 140 mg/dL Correction Factor: 20 mg/dL/unit Carbohydrate ratio = 10 g/unit BSGs ACHS if eating, q6h if npo -start Lantus -HbA1C 9.4; likely will need escalation of medications on discharge -Perhaps elevated in setting of infection. Per , his sugars run in the 140 - 190s at home. -Heart healthy/CC diet once tolerating p.o. intake. (6) Pacemaker: Plan: -Follow-up with cardiology as outpatient. (7) Neurogenic bladder: Plan: -Indwelling suprapubic catheter in place. (8) Spastic paraparesis: Plan: -With baclofen pump, baclofen PO and Zanaflex 4mg 3 times daily - restarted now tolerating PO. -IV lorazepam 0.5mg now to help with this. (9) Aortic aneurysm: Plan: -Chronic, stable. -Follows as outpatient with vascular surgery. (10) Aortic insufficiency: Plan: -Echocardiogram from 2018 shows moderate AI. -Follows with outpatient cardiology. (11) GERD (gastroesophageal reflux disease): Plan: -Pepcid 20 mg twice daily at home, will convert to IV while NPO. (12) Renal mass: Plan: -New 1.6 cm enhancing cortical lesion on left kidney, highly suspicious for renal cell carcinoma. Patient reports that he is aware and that it has been present on previous imaging, do not see it reported on CT from 10/2020. -Recommend follow-up with urology upon discharge. (13) LFT elevation: Plan: -CT A/P noted hepatomegaly and severe hepatic steatosis. -Is on Lasix and spironolactone, will continue these when tolerating PO intake. Plan: -Admit to Med/Surg -SCDs and Lovenox for DVT ppx -DNR/DNI Admission and Anticipated Discharge Date Admission Date: February 13, 2022 Subjective NG tube removed by surgery. No nausea, vomiting or abdominal pain. Main concern is muscle spasms in his lower legs. Usually takes routine tizanidine and baclofen.but held due to not taking oral intake. Now cleared for clear liquid diet per surgery. KUB XR this morning unremakrable. Review of Systems Review of Systems: All systems reviewed & are unremarkable except as noted in Subjective Physical Exam Constitutional: WD/WN, vitals as above + morbidly obese Respiratory: normal respiratory effort, lungs clear to auscultation Cardiovascular: Rate/Rhythm: regular rate and regular rhythm Heart Sounds: no murmur Gastrointestinal (Abdomen): Inspection/Auscultation: normal bowel sounds Percussion/Palpation: abdomen soft; abdomen nontender, no guarding and abdomen not rigid Neurologic: moves all extremities and awake; not confused frequent spasm of bilateral lower extremities Psychiatric: A+Ox3, euthymic affect Results & Data Results & Data ([facility]) Vital Signs (Past 12 Hours) Vital Signs Temp Pulse Resp BP Pulse Ox 02/14/22 12:57 84 137/83 02/14/22 08:10 36.7 C 86 16 165/89 H 97 PG Care Time/CCT Total # of Minutes Spent Total Time Spent with Patient: Total time spent is greater than 50% in coordination of care (as documented) at patient's floor/unit and/or counseling patient: Coding Level of Care Code 55894 Subseq Hosp Care Lvl 2 Diagnoses SBO (small bowel obstruction) K56.609 CAD (coronary artery disease) I25.10 Hypertension I10 Hypertension type: essential hypertension Atrial fibrillation I48.91 Hyperglycemia R73.9 Pacemaker Z95.0 Neurogenic bladder N31.9 Spastic paraparesis Aortic aneurysm I71.9 Aortic insufficiency I35.1 GERD (gastroesophageal reflux disease) K21.9 Renal mass N28.89 LFT elevation R79.89 (1) Hypertension Hypertension type: essential hypertension Qualified Code(s): I10 - Essential (primary) hypertension
[2022-02-14] MEDS ORDERED: LORazepam 2 MG/1 ML VIAL IV STA (17:43)
[2022-02-14] MEDS: traZODone HCL 50 MG TAB PO SCH (20:05)
[2022-02-14] MEDS: BACLOFEN 10 MG TAB PO SCH (20:05)
[2022-02-14] MEDS: tiZANidine HCL 4 MG TABLET PO SCH (20:05)
[2022-02-14] MEDS: PREGABALIN 75 MG CAP PO SCH (20:05)
[2022-02-14] MEDS: DULoxetine HCL 60 MG CAP PO SCH (20:05)
[2022-02-14] MEDS: FLUTICASONE PROPIONATE NA SPR 16 GM BTL NAE SCH (20:06)
[2022-02-14] MEDS: FAMOTIDINE 20 MG in SYRINGE 3 ML IV SCH (21:47)
[2022-02-14] MEDS: INSULIN GLARGINE SOLOSTAR 100 UNITS/ML 3 ML PEN SC SCH (21:48)
[2022-02-15] MEDS: MoRPHine SULFATE 4 MG/ML 1 ML CARP\\VIAL IV PRN ×3 (00:26→07:19)
[2022-02-15] MEDS ORDERED: BACLOFEN 10 MG TAB PO STA (02:37)
[2022-02-15] MEDS: LACTATED RINGER'S 1,000 ML IV SCH (02:44)
[2022-02-15 07:06] LABS: Basophils # (auto) 0.01 K/uL (0-0.2); Basophils % (auto) 0.2 %; Eosinophils # (auto) 0.23 K/uL (0-0.5); Eosinophils % (auto) 3.7 %; Hematocrit (blood only) 39.2 % (42-52); Hemoglobin 12.8 g/dL (14.0-18.0); Immature Granulocytes # (auto) 0.01 K/uL (0.00-0.02); Immature Granulocytes % (auto) 0.2 %; Lymphocytes # (auto) 1.56 K/uL (1.2-3.4); Lymphocytes % (auto) 25.3 %; Mean Corpuscular Hemoglobin 30.8 pg (25-34); Mean Corpuscular Hgb Conc 32.7 g/dL (32-36); Mean Corpuscular Volume 94.5 fL (80-100); Mean Platelet Volume 10.4 fL (7.4-10.4); Monocytes # (auto) 0.86 K/uL (0.11-0.59); Monocytes % (auto) 13.9 %; Neutrophils % (auto) 56.7 %; Platelet Count 189 K/uL (130-400); RDW Coefficient of Variation 16.7 % (11.5-14.5); Red Blood Count 4.15 M/uL (4.7-6.1); White Blood Count 6.17 K/uL (4.8-10.8)
[2022-02-15 07:27] LABS: BUN Creatinine Ratio 29.7 (10-20); Creatinine Clr Calc Pharmacy 158.2 ml/min; Est GFR (African American) 118.3 ml/min
[2022-02-15] MEDS: tiZANidine HCL 4 MG TABLET PO SCH ×4 (08:25→20:17)
[2022-02-15] MEDS: BACLOFEN 10 MG TAB PO SCH ×3 (08:25→17:12)
[2022-02-15] MEDS: FLUTICASONE PROPIONATE NA SPR 16 GM BTL NAE SCH ×2 (08:26→20:16)
[2022-02-15] MEDS: NYSTATIN POWDER 15GM BTL EXT SCH (08:26)
[2022-02-15] MEDS: LIDOCAINE 5% 1 PATCH TD SCH (08:26)
[2022-02-15] MEDS: CLOTRIMAZOLE 1% CR 15 GM TUBE TOP SCH (08:27)
[2022-02-15] MEDS: BACITRACIN OINT 15 GM TUBE TOP SCH (08:27)
[2022-02-15] MEDS: PREGABALIN 75 MG CAP PO SCH ×2 (08:30→20:17)
[2022-02-15] MEDS: FAMOTIDINE 20 MG in SYRINGE 3 ML IV SCH ×2 (08:31→20:16)
[2022-02-15] MEDS: INSULIN ASPART PER UNIT SC SCH ×4 (08:41→21:11)
[2022-02-15] MEDS ORDERED: ALENDRONATE SODIUM 70 MG TAB PO SCH (09:00)
--- NOTE | 2022-02-15 09:22 | Surgery Progress Note ---
Date of Service February 15, 2022 Assessment & Plan (1) SBO (small bowel obstruction): Plan: Small bowel obstruction appears to clinically be resolved. We will advance his diet. I would recommend consideration from the primary service for discharge later today so that he can see his neurologist in [place] which she has an appointment for tomorrow. With his spastic paralysis getting this appointment is his priority and I agree with this. (2) Status post insertion of intrathecal baclofen pump: (3) Spastic paraparesis: Admission and Anticipated Discharge Date Admission Date: February 13, 2022 Subjective Patient seen. From a GI perspective is doing well. He had 2 bowel movements. No nausea and is tolerating liquids. Physical Exam Physical Exam: Alert. No acute distress however he intermittently has full body spasms from his spinal cord disease. Abdomen is obese. Soft. Nontender. Results & Data ([facility]) Vital Signs (Past 12 Hours) Vital Signs Temp Pulse Pulse Resp BP Pulse Ox 02/15/22 07:18 36.4 C L 85 18 113/70 95 02/15/22 00:50 80 12 96 02/14/22 22:03 36.4 C L 87 18 122/78 98 PG Care Time/CCT Total # of Minutes Spent Total Time Spent with Patient: Total time spent is greater than 50% in coordination of care (as documented) at patient's floor/unit and/or counseling patient: Coding Level of Care Code 89287 Subseq Hosp Care Lvl 2 Diagnoses SBO (small bowel obstruction) K56.609 Status post insertion of intrathecal baclofen pump Z97.8 Spastic paraparesis
[2022-02-15] MEDS ORDERED: FUROSEMIDE 40 MG/4 ML VIAL IV STA (10:05)
[2022-02-15] MEDS: CLOPIDOGREL BISULFATE 75 MG TAB PO SCH (10:38)
[2022-02-15] MEDS: MIRABEGRON ER 25 MG TAB PO SCH (10:38)
[2022-02-15] MEDS: PANTOprazole 40 MG TAB PO SCH ×2 (10:38→20:17)
[2022-02-15] MEDS: SPIRONOLACTONE 25 MG TAB PO SCH (10:38)
--- NOTE | 2022-02-15 10:49 | XRay Report ---
XR chest 1V portable HISTORY: 66 years-old Male shortness of breath acute shortness of breath COMPARISON: Chest radiograph 02/13/2022 TECHNIQUE: AP view of the chest FINDINGS: The cardiac silhouette is enlarged. Left subclavian pacer. There is no pneumothorax, pleural effusion , airspace consolidation or overt pulmonary edema. Eventration of the right hemidiaphragm. Degenerati ve changes of the shoulders and spine. Cervical spinal fusion hardware. Thoracolumbar spinal fusion h ardware. Intrathecal catheter is better seen on the comparison CT study. Air-filled loops of bowel wi thin the upper abdomen are partially imaged. IMPRESSION: No acute process. ACT 112: Negative or not required by law. The above report was generated using voice recognition software. It may contain grammatical, syntax o r spelling errors. Electronically signed by: Sg Dias M.D. 02/15/2022 10:48 AM
[2022-02-15] MEDS ORDERED: LORazepam 2 MG/1 ML VIAL IV STA (10:58)
[2022-02-15] MEDS: cefTRIAXone SODIUM 2,000 MG in DEXTROSE 5% 50 ML IV SCH (11:58)
[2022-02-15] MEDS: LORazepam 2 MG/1 ML VIAL IV PRN (14:16)
--- NOTE | 2022-02-15 15:05 | Hospitalist Progress Note ---
Date of Service February 15, 2022 Assessment & Plan (1) SBO (small bowel obstruction): Plan: -Small bowel loops distended and fluid-filled with distal/terminal ileum decompressed, transition point suggested an anterior right lower quadrant. -Appreciate surgery management, mostly resolved at this time. Patient on full liquid diet and tolerating well. -Zofran 4 mg IV every 6 hours as needed. -Famotidine 20 mg IV every 12 hours. -Pain management with Tylenol, will stop morphine as he is maily using this for muscle spasms and prefer lorazepam to help with this instead of morphine. (2) Catheter-associated urinary tract infection: Plan: I suspect the E. coli grown in urine is a true infection given increased bladder spasms. Start ceftriaxone 2g IV daily Mirabegron restarted this morning for bladder spasms (3) CAD (coronary artery disease): Plan: -Long history of numerous drug-eluting stents placed over the years, has been stable for some time. -Restart aspirin, Plavix, statin and diuretics. -Continue to hold carvedilol and ramipril given current low normal blood pressures. (4) Hypertension: Plan: -Normotensive now, will resume furosemide and spironolactone. - Continue to hold carvedilol and ACEi pending stability in his blood pressure following reintroduction of diuretics. (5) Atrial fibrillation: Plan: -Paroxysmal, pacer in place. Not on anticoagulation. -Follows with Dr. Jacome as outpatient. (6) Hyperglycemia: Plan: -Glucose on BMP 401, patient is on Metformin only at home. -DC Metformin while here -Continue Novolog: Goal BSG Range: Low 100 mg/dL, High 140 mg/dL Correction Factor: 20 mg/dL/unit Carbohydrate ratio = 10 g/unit BSGs ACHS if eating, q6h if npo -start Lantus 10 units HS -HbA1C 9.4; likely will need escalation of medications on discharge -Perhaps elevated in setting of infection. Per , his sugars run in the 140 - 190s at home. -Heart healthy/CC diet once tolerating p.o. intake. (7) Pacemaker: Plan: -Follow-up with cardiology as outpatient. (8) Neurogenic bladder: Plan: -Indwelling suprapubic catheter in place, will be changed by his today under supervision. (9) Spastic paraparesis: Plan: -With baclofen pump, baclofen PO and Zanaflex 4mg 3 times daily - restarted now tolerating PO. Will switch baclofen back to PRN as patient appears overly sedated today -IV lorazepam 0.5mg PRN for ongoing severe spasms (10) Aortic aneurysm: Plan: -Chronic, stable. -Follows as outpatient with vascular surgery. (11) Aortic insufficiency: Plan: -Echocardiogram from 2018 shows moderate AI. -Follows with outpatient cardiology. (12) GERD (gastroesophageal reflux disease): Plan: -Pepcid 20 mg twice daily at home, will continue on IV (13) Renal mass: Plan: -New 1.6 cm enhancing cortical lesion on left kidney, highly suspicious for renal cell carcinoma. Patient reports that he is aware and that it has been present on previous imaging, do not see it reported on CT from 10/2020. -Recommend follow-up with urology upon discharge. (14) LFT elevation: Plan: -CT A/P noted hepatomegaly and severe hepatic steatosis. -Is on Lasix and spironolactone, will continue these when tolerating PO intake. Plan: -Admit to Med/Surg -SCDs and Lovenox for DVT ppx -DNR/DNI Admission and Anticipated Discharge Date Admission Date: February 13, 2022 Subjective Despite baclofen and tizanidine reintroduced yesterday he is having significantly worse spasm today. He reports they appear to start from his bladder/penis and accelerate upwards making it difficult to breath due to tightness around his throat. Reports burning sensation from his penis for the last 2 months. Recently started back on Myrbetriq a few weeks ago due to bladder spasms but were not this intense. No fever or chills. Review of Systems Review of Systems: All systems reviewed & are unremarkable except as noted in Subjective Physical Exam Constitutional: WD/WN, vitals as above + morbidly obese Respiratory: normal respiratory effort, lungs clear to auscultation Cardiovascular: Rate/Rhythm: regular rate and regular rhythm Heart Sounds: no murmur Extremities: + pedal edema (2+ b/l equal) Gastrointestinal (Abdomen): Inspection/Auscultation: normal bowel sounds Percussion/Palpation: abdomen soft; abdomen nontender, no guarding and abdomen not rigid Neurologic: awake; + does not move all extremities (lwer extremity paralysis) and not confused Significant ongoing spasms while awake affecting his whole body; ccuring every 5 minutes Psychiatric: A+Ox3, euthymic affect Results & Data Results & Data ([facility]) Vital Signs (Past 12 Hours) Vital Signs Temp Pulse Resp BP Pulse Ox 02/15/22 14:20 126/76 02/15/22 13:00 95 02/15/22 09:56 36.3 C L 73 18 129/83 98 02/15/22 07:18 36.4 C L 85 18 113/70 95 PG Care Time/CCT Total # of Minutes Spent Total Time Spent with Patient: Total time spent is greater than 50% in coordination of care (as documented) at patient's floor/unit and/or counseling patient: Coding Level of Care Code 84196 Subseq Hosp Care Lvl 3 Diagnoses SBO (small bowel obstruction) K56.609 CAD (coronary artery disease) I25.10 Hypertension I10 Hypertension type: essential hypertension Atrial fibrillation I48.91 Hyperglycemia R73.9 Pacemaker Z95.0 Neurogenic bladder N31.9 Spastic paraparesis Aortic aneurysm I71.9 Aortic insufficiency I35.1 GERD (gastroesophageal reflux disease) K21.9 Renal mass N28.89 LFT elevation R79.89 Catheter-associated urinary tract infection T83.511A; N39.0 (1) Hypertension Hypertension type: essential hypertension Qualified Code(s): I10 - Essential (primary) hypertension
[2022-02-15] MEDS: DULoxetine HCL 60 MG CAP PO SCH (20:16)
[2022-02-15] MEDS: ASPIRIN 81 MG ECTAB PO SCH (20:16)
[2022-02-15] MEDS: BACLOFEN 10 MG TAB PO PRN (20:17)
[2022-02-15] MEDS: traZODone HCL 50 MG TAB PO SCH (20:17)
[2022-02-15] MEDS ORDERED: [UNRECOGNIZED DRUG - OTHER] PO SCH (21:00)
[2022-02-15] MEDS: INSULIN GLARGINE SOLOSTAR 100 UNITS/ML 3 ML PEN SC SCH (21:11)
[2022-02-16] MEDS: PREGABALIN 75 MG CAP PO SCH ×2 (08:14→21:37)
[2022-02-16] MEDS: CLOPIDOGREL BISULFATE 75 MG TAB PO SCH (08:14)
[2022-02-16] MEDS: MIRABEGRON ER 25 MG TAB PO SCH (08:14)
[2022-02-16] MEDS: tiZANidine HCL 4 MG TABLET PO SCH ×3 (08:14→21:39)
[2022-02-16] MEDS: SPIRONOLACTONE 25 MG TAB PO SCH (08:14)
[2022-02-16] MEDS: PANTOprazole 40 MG TAB PO SCH ×2 (08:14→21:38)
[2022-02-16] MEDS: FLUTICASONE PROPIONATE NA SPR 16 GM BTL NAE SCH ×2 (08:15→21:36)
[2022-02-16 09:15] LABS: Basophils # (auto) 0.02 K/uL (0-0.2); Basophils % (auto) 0.3 %; Eosinophils # (auto) 0.13 K/uL (0-0.5); Eosinophils % (auto) 2.2 %; Hematocrit (blood only) 38.8 % (42-52); Hemoglobin 12.9 g/dL (14.0-18.0); Immature Granulocytes # (auto) 0.02 K/uL (0.00-0.02); Immature Granulocytes % (auto) 0.3 %; Lymphocytes # (auto) 1.18 K/uL (1.2-3.4); Lymphocytes % (auto) 19.7 %; Mean Corpuscular Hemoglobin 30.7 pg (25-34); Mean Corpuscular Hgb Conc 33.2 g/dL (32-36); Mean Corpuscular Volume 92.4 fL (80-100); Mean Platelet Volume 10.8 fL (7.4-10.4); Monocytes # (auto) 0.69 K/uL (0.11-0.59); Monocytes % (auto) 11.5 %; Neutrophils # (auto) 3.95 K/uL (1.4-6.5); Platelet Count 172 K/uL (130-400); RDW Coefficient of Variation 15.9 % (11.5-14.5); RDW Standard Deviation 53.8 fL (36.4-46.3); White Blood Count 5.99 K/uL (4.8-10.8)
[2022-02-16] MEDS: carvediloL 6.25 MG TAB PO SCH ×2 (09:24→21:39)
[2022-02-16] MEDS: FUROSEMIDE 40 MG TAB PO SCH (09:24)
[2022-02-16] MEDS: FAMOTIDINE 20 MG in SYRINGE 3 ML IV SCH (09:24)
[2022-02-16 09:29] LABS: Albumin Globulin Ratio 1.7 (0.9-2); Albumin Level 3.7 gm/dl (3.4-5.0); BUN Creatinine Ratio 17.5 (10-20); Bilirubin,Total 0.7 mg/dl (0.2-1.0); Calcium 8.4 mg/dl (8.5-10.1); Creatinine Clr Calc Pharmacy 160.7 ml/min; Est GFR (Non-African American) 102.7 ml/min; Globulin 2.2 gm/dl (2.5-4.0); Potassium 3.8 mmol/L (3.5-5.1); Total Protein 5.9 gm/dl (6.0-8.3)
[2022-02-16] MEDS: BACLOFEN 10 MG TAB PO PRN ×2 (09:30→21:56)
[2022-02-16] MEDS: INSULIN GLARGINE SOLOSTAR 100 UNITS/ML 3 ML PEN SC SCH ×2 (09:31→21:38)
[2022-02-16] MEDS: INSULIN ASPART PER UNIT SC SCH ×4 (09:32→21:37)
[2022-02-16] MEDS: LIDOCAINE 5% 1 PATCH TD SCH (09:40)
[2022-02-16] MEDS: CLOTRIMAZOLE 1% CR 15 GM TUBE TOP SCH (10:00)
[2022-02-16] MEDS: BACITRACIN OINT 15 GM TUBE TOP SCH (10:00)
[2022-02-16] MEDS: NYSTATIN POWDER 15GM BTL EXT SCH (10:00)
--- NOTE | 2022-02-16 10:06 | Surgery Progress Note ---
Date of Service February 16, 2022 Assessment & Plan (1) SBO (small bowel obstruction): Plan: clinically resolved. can advance diet will sign off . call if any questions or concerns. Admission and Anticipated Discharge Date Admission Date: February 13, 2022 Subjective pt feeling well. bridget diet. no nausea or pain. Physical Exam Physical Exam: alert. nad abd: obese. soft. nt. Results & Data ([facility]) Vital Signs (Past 12 Hours) Vital Signs Temp Pulse Pulse Resp BP Pulse Ox 02/16/22 07:32 36.7 C 79 18 178/88 H 93 02/15/22 22:16 70 22 96 02/15/22 22:07 36.4 C L 70 18 117/78 96 PG Care Time/CCT Total # of Minutes Spent Total Time Spent with Patient: Total time spent is greater than 50% in coordination of care (as documented) at patient's floor/unit and/or counseling patient: Coding Level of Care Code 21608 Subseq Hosp Care Lvl 2 Diagnoses SBO (small bowel obstruction) K56.609
[2022-02-16] MEDS: cefTRIAXone SODIUM 2,000 MG in DEXTROSE 5% 50 ML IV SCH (12:02)
[2022-02-16] MEDS: LORazepam 2 MG/1 ML VIAL IV PRN ×2 (16:12→19:29)
[2022-02-16] MEDS ORDERED: CETIRIZINE HCL 10 MG TABLET PO ONE (16:15)
--- NOTE | 2022-02-16 16:20 | Hospitalist Progress Note ---
Date of Service February 16, 2022 Assessment & Plan (1) SBO (small bowel obstruction): Plan: Small bowel loops distended and fluid-filled with distal/terminal ileum decompressed, transition point suggested an anterior right lower quadrant. Appreciate surgery management, mostly resolved at this time. Advance diet to regular and restart his usual laxatives other than senna. Zofran 4 mg IV every 6 hours as needed. Pain management with Tylenol, will stop morphine as he is mainly using this for muscle spasms and prefer lorazepam to help with this instead of morphine. (2) Catheter-associated urinary tract infection: Plan: I suspect the E. coli grown in urine is a true infection given increased bladder spasms. Continue ceftriaxone 2g IV daily. Mirabegron restarted. (3) CAD (coronary artery disease): Plan: Long history of numerous drug-eluting stents placed over the years, has been stable for some time. Restarted aspirin, Plavix, carvedilol, statin and diuretics. (4) Hypertension: Plan: Normotensive now, will resume carvedilol, furosemide and spironolactone. (5) Atrial fibrillation: Plan: Paroxysmal, pacer in place. Not on anticoagulation. Follows with Dr. Jacome as outpatient. (6) Hyperglycemia: Plan: -Glucose on BMP 401, patient is on Metformin only at home. -DC Metformin while here -Continue Novolog: Goal BSG Range: Low 100 mg/dL, High 140 mg/dL Correction Factor: 20 mg/dL/unit Carbohydrate ratio = 10 g/unit BSGs ACHS if eating, q6h if npo -increase Lantus to 10 units BID -HbA1C 9.4; likely will need escalation of medications on discharge -Perhaps elevated in setting of infection. Per , his sugars run in the 140 - 190s at home. -Heart healthy/CC diet once tolerating p.o. intake. (7) Pacemaker: Plan: -Follow-up with cardiology as outpatient. (8) Neurogenic bladder: Plan: -Indwelling suprapubic catheter in place, will be changed by his 02/15 under supervision. (9) Spastic paraparesis: Plan: -suspect bladder spasms worse due to catheter associated UTI -With baclofen pump, baclofen PO and Zanaflex 4mg 3 times daily - restarted now tolerating PO. Will switch baclofen back to PRN as patient appears overly sedated today -IV lorazepam 0.5mg PRN for ongoing severe spasms (10) Aortic aneurysm: Plan: -Chronic, stable. -Follows as outpatient with vascular surgery. (11) Aortic insufficiency: Plan: -Echocardiogram from 2018 shows moderate AI. -Follows with outpatient cardiology. (12) GERD (gastroesophageal reflux disease): Plan: -Pepcid 20 mg twice daily at home, will continue on IV (13) Renal mass: Plan: -New 1.6 cm enhancing cortical lesion on left kidney, highly suspicious for renal cell carcinoma. Patient reports that he is aware and that it has been present on previous imaging, do not see it reported on CT from 10/2020. -Recommend follow-up with urology upon discharge. Plan: -Admit to Med/Surg -SCDs and Lovenox for DVT ppx -DNR/DNI Admission and Anticipated Discharge Date Admission Date: February 13, 2022 Subjective Still having bladder spasms but possibly less severe than yesterday. He was sig nificantly sedated this morning. Tolerating full liquids but no BM yesterday. No nausea or vomiting. Review of Systems Review of Systems: All systems reviewed & are unremarkable except as noted in Subjective Physical Exam Constitutional: WD/WN, vitals as above + morbidly obese Respiratory: normal respiratory effort, lungs clear to auscultation Cardiovascular: Rate/Rhythm: regular rate and regular rhythm Heart Sounds: no murmur Extremities: + pedal edema (2+ b/l equal) Gastrointestinal (Abdomen): Inspection/Auscultation: normal bowel sounds Percussion/Palpation: abdomen soft; abdomen nontender, no guarding and abdomen not rigid Neurologic: awake; + does not move all extremities (lwer extremity paralysis) and not confused Significant ongoing spasms while awake affecting his whole body; ccuring every 5 minutes Psychiatric: A+Ox3, euthymic affect Results & Data Results & Data ([facility]) Vital Signs (Past 12 Hours) Vital Signs Temp Pulse Resp BP Pulse Ox 02/16/22 14:38 36.6 C 80 18 114/70 93 02/16/22 07:32 36.7 C 79 18 178/88 H 93 PG Care Time/CCT Total # of Minutes Spent Total Time Spent with Patient: Total time spent is greater than 50% in coordination of care (as documented) at patient's floor/unit and/or counseling patient: Coding Level of Care Code 11311 Subseq Hosp Care Lvl 2 Diagnoses SBO (small bowel obstruction) K56.609 Catheter-associated urinary tract infection T83.511A; N39.0 CAD (coronary artery disease) I25.10 Hypertension I10 Hypertension type: essential hypertension Atrial fibrillation I48.91 Hyperglycemia R73.9 Pacemaker Z95.0 Neurogenic bladder N31.9 Spastic paraparesis Aortic aneurysm I71.9 Aortic insufficiency I35.1 GERD (gastroesophageal reflux disease) K21.9 Renal mass N28.89 (1) Hypertension Hypertension type: essential hypertension Qualified Code(s): I10 - Essential (primary) hypertension
[2022-02-16] MEDS ORDERED: NURSING DECISION MEDICATION ONE (17:19)
[2022-02-16] MEDS ORDERED: SODIUM CHLORIDE 0.65% NA SOLN 45 ML (OCEAN) ONE (17:26)
[2022-02-16] MEDS ORDERED: SODIUM CHLORIDE 0.65% NA SOLN 45 ML (OCEAN) PRN (17:36)
[2022-02-16] MEDS ORDERED: POLYETHYLENE (MIRALAX) 17 GM PACK PO SCH (21:00)
[2022-02-16] MEDS: PITAVASTATIN 4 MG PO SCH (21:36)
[2022-02-16] MEDS: DOCUSATE SODIUM 100 MG CAP PO SCH (21:38)
[2022-02-16] MEDS: ASPIRIN 81 MG ECTAB PO SCH (21:38)
[2022-02-16] MEDS: DULoxetine HCL 60 MG CAP PO SCH (21:38)
[2022-02-16] MEDS: traZODone HCL 50 MG TAB PO SCH (21:39)
[2022-02-17] MEDS: LORazepam 2 MG/1 ML VIAL IV PRN ×2 (06:08→21:45)
[2022-02-17 06:38] LABS: Basophils # (auto) 0.01 K/uL (0-0.2); Basophils % (auto) 0.2 %; Eosinophils # (auto) 0.13 K/uL (0-0.5); Eosinophils % (auto) 2.6 %; Hematocrit (blood only) 39.9 % (42-52); Hemoglobin 13.1 g/dL (14.0-18.0); Immature Granulocytes # (auto) 0.01 K/uL (0.00-0.02); Immature Granulocytes % (auto) 0.2 %; Lymphocytes # (auto) 1.58 K/uL (1.2-3.4); Lymphocytes % (auto) 31.8 %; Mean Corpuscular Hemoglobin 30.9 pg (25-34); Mean Corpuscular Hgb Conc 32.8 g/dL (32-36); Mean Corpuscular Volume 94.1 fL (80-100); Mean Platelet Volume 10.8 fL (7.4-10.4); Monocytes # (auto) 0.46 K/uL (0.11-0.59); Monocytes % (auto) 9.3 %; Neutrophils # (auto) 2.78 K/uL (1.4-6.5); Neutrophils % (auto) 55.9 %; Platelet Count 201 K/uL (130-400); RDW Coefficient of Variation 16.1 % (11.5-14.5); RDW Standard Deviation 55.5 fL (36.4-46.3); Red Blood Count 4.24 M/uL (4.7-6.1); White Blood Count 4.97 K/uL (4.8-10.8)
[2022-02-17 07:10] LABS: Albumin Globulin Ratio 1.6 (0.9-2); Albumin Level 3.7 gm/dl (3.4-5.0); BUN Creatinine Ratio 16.9 (10-20); Bilirubin,Total 0.6 mg/dl (0.2-1.0); Calcium 8.7 mg/dl (8.5-10.1); Creatinine Clr Calc Pharmacy 142.6 ml/min; Est GFR (African American) 113.3 ml/min; Est GFR (Non-African American) 97.8 ml/min; Globulin 2.3 gm/dl (2.5-4.0); Potassium 3.9 mmol/L (3.5-5.1)
[2022-02-17] MEDS: BACITRACIN OINT 15 GM TUBE TOP SCH (08:01)
[2022-02-17] MEDS: CLOPIDOGREL BISULFATE 75 MG TAB PO SCH (08:02)
[2022-02-17] MEDS: MULTIVITAMIN TAB PO SCH (08:02)
[2022-02-17] MEDS: FUROSEMIDE 40 MG TAB PO SCH (08:02)
[2022-02-17] MEDS: tiZANidine HCL 4 MG TABLET PO SCH ×3 (08:03→21:50)
[2022-02-17] MEDS: carvediloL 6.25 MG TAB PO SCH ×2 (08:03→21:54)
[2022-02-17] MEDS: PANTOprazole 40 MG TAB PO SCH ×2 (08:03→21:53)
[2022-02-17] MEDS: SPIRONOLACTONE 25 MG TAB PO SCH (08:03)
[2022-02-17] MEDS: bisacodyL 10 MG SUPP PR SCH (08:03)
[2022-02-17] MEDS: CETIRIZINE HCL 10 MG TABLET PO SCH (08:04)
[2022-02-17] MEDS: CLOTRIMAZOLE 1% CR 15 GM TUBE TOP SCH (08:04)
[2022-02-17] MEDS: CYANOCOBALAMIN (B-12) 500 MCG TABLET PO SCH (08:05)
[2022-02-17] MEDS: DOCUSATE SODIUM 100 MG CAP PO SCH ×3 (08:05→21:51)
[2022-02-17] MEDS: FLUTICASONE PROPIONATE NA SPR 16 GM BTL NAE SCH ×2 (08:05→21:48)
[2022-02-17] MEDS: MIRABEGRON ER 25 MG TAB PO SCH (08:06)
[2022-02-17] MEDS: LIDOCAINE 5% 1 PATCH TD SCH (08:07)
[2022-02-17] MEDS: NYSTATIN POWDER 15GM BTL EXT SCH (08:07)
[2022-02-17] MEDS: PREGABALIN 75 MG CAP PO SCH ×2 (08:10→21:58)
[2022-02-17] MEDS: INSULIN GLARGINE SOLOSTAR 100 UNITS/ML 3 ML PEN SC SCH ×2 (08:50→21:47)
[2022-02-17] MEDS: INSULIN ASPART PER UNIT SC SCH ×4 (08:51→21:46)
[2022-02-17] MEDS ORDERED: CHOLECALCIFEROL 1,000 UNITS 25 MCG TAB PO SCH (11:30)
[2022-02-17] MEDS: CHOLECALCIFEROL 1,000 UNITS 25 MCG TAB PO SCH (12:10)
[2022-02-17] MEDS: cefTRIAXone SODIUM 2,000 MG in DEXTROSE 5% 50 ML IV SCH (12:10)
[2022-02-17] MEDS ORDERED: bisacodyL 10 MG SUPP PR STA (13:25)
[2022-02-17] MEDS: POLYETHYLENE (MIRALAX) 17 GM PACK PO SCH ×2 (13:51→21:49)
[2022-02-17] MEDS: SENNA 8.6 MG TAB PO SCH ×2 (13:51→21:54)
--- NOTE | 2022-02-17 16:37 | Hospitalist Progress Note ---
Date of Service February 17, 2022 Assessment & Plan (1) SBO (small bowel obstruction): Plan: Small bowel loops distended and fluid-filled with distal/terminal ileum decompressed, transition point suggested an anterior right lower quadrant. Appreciate surgery management, mostly resolved at this time. Advance diet to regular and restart all his usual laxatives including suppository. Pain management with Tylenol, will stop morphine as he is mainly using this for muscle spasms and prefer lorazepam to help with this instead of morphine. (2) Catheter-associated urinary tract infection: Plan: I suspect the E. coli grown in urine is a true infection given increased bladder spasms. Continue ceftriaxone 2g IV daily. Mirabegron restarted. (3) CAD (coronary artery disease): Plan: Long history of numerous drug-eluting stents placed over the years, has been stable for some time. Restarted aspirin, Plavix, carvedilol, statin and diuretics. (4) Hypertension: Plan: Normotensive now, will resume carvedilol, furosemide and spironolactone. (5) Atrial fibrillation: Plan: Paroxysmal, pacer in place. Not on anticoagulation. Follows with Dr. Jacome as outpatient. (6) Hyperglycemia: Plan: -Glucose on BMP 401, patient is on Metformin only at home. -DC Metformin while here -Continue Novolog: Goal BSG Range: Low 100 mg/dL, High 140 mg/dL Correction Factor: 20 mg/dL/unit Carbohydrate ratio = 10 g/unit BSGs ACHS if eating, q6h if npo -increase Lantus to 10 units BID -HbA1C 9.4; likely will need escalation of medications on discharge - patient declining and thinks it is down to his recent sweet diet -Perhaps elevated in setting of infection. Per , his sugars run in the 140 - 190s at home. -Heart healthy/CC diet once tolerating p.o. intake. (7) Pacemaker: Plan: -Follow-up with cardiology as outpatient. (8) Neurogenic bladder: Plan: -Indwelling suprapubic catheter in place, will be changed by his 02/15 under supervision. (9) Spastic paraparesis: Plan: -suspect bladder spasms worse due to catheter associated UTI -With baclofen pump, baclofen PO and Zanaflex 4mg 3 times daily - restarted now tolerating PO. Will switch baclofen back to PRN as patient appears overly sedated today -IV lorazepam 0.5mg PRN for ongoing severe spasms (10) Aortic aneurysm: Plan: -Chronic, stable. -Follows as outpatient with vascular surgery. (11) Aortic insufficiency: Plan: -Echocardiogram from 2018 shows moderate AI. -Follows with outpatient cardiology. (12) GERD (gastroesophageal reflux disease): Plan: -Pepcid 20 mg twice daily (13) Renal mass: Plan: -New 1.6 cm enhancing cortical lesion on left kidney, highly suspicious for renal cell carcinoma. Patient reports that he is aware and that it has been present on previous imaging, do not see it reported on CT from 10/2020. -Recommend follow-up with urology upon discharge. (14) Nocturnal hypoxia: Plan: Overnight pulse oximetry requested to see if he qualifies for home O2 Plan: -Admit to Med/Surg -SCDs and Lovenox for DVT ppx -DNR/DNI Admission and Anticipated Discharge Date Admission Date: February 13, 2022 Subjective Patient seen in the morning and afternoon. Initially in the morning he had not had a bowel movement but after re-introduction of all his laxatives he had a large BM. Initially still requiring oxygen at rest but this was managed to be weaned down to O2 sats 90-94% on room air. He is not on oxygen at home. On sleeping his O2 sats drop quickly to 80%. He has known obstructive sleep apnea but his CPAP was recalled 2 years ago and he is yet to get a replacement. I suspect he chronically desaturates at night but given significant from at night time recommend investigating here as inpatient to get home O2 at night at least ordered and then he can work on replacement CPAP with his PCP. Possible mild improvement of bladder spasms but he is still getting them. Review of Systems Review of Systems: All systems reviewed & are unremarkable except as noted in Subjective Physical Exam Constitutional: WD/WN, vitals as above + morbidly obese Respiratory: normal respiratory effort, lungs clear to auscultation Cardiovascular: Rate/Rhythm: regular rate and regular rhythm Heart Sounds: no murmur Extremities: + pedal edema (2+ b/l equal) Gastrointestinal (Abdomen): Inspection/Auscultation: normal bowel sounds Percussion/Palpation: abdomen soft; abdomen nontender, no guarding and abdomen not rigid Neurologic: awake; + does not move all extremities (lwer extremity paralysis) and not confused Psychiatric: A+Ox3, euthymic affect Results & Data Results & Data ([facility]) Vital Signs (Past 12 Hours) Vital Signs Temp Pulse Resp BP Pulse Ox 02/17/22 07:30 36.4 C L 71 18 155/89 H 95 PG Care Time/CCT Total # of Minutes Spent Total Time Spent with Patient: Total time spent is greater than 50% in coordination of care (as documented) at patient's floor/unit and/or counseling patient: Coding Level of Care Code 98874 Subseq Hosp Care Lvl 2 Diagnoses SBO (small bowel obstruction) K56.609 Catheter-associated urinary tract infection T83.511A; N39.0 CAD (coronary artery disease) I25.10 Hypertension I10 Hypertension type: essential hypertension Atrial fibrillation I48.91 Hyperglycemia R73.9 Pacemaker Z95.0 Neurogenic bladder N31.9 Spastic paraparesis Aortic aneurysm I71.9 Aortic insufficiency I35.1 GERD (gastroesophageal reflux disease) K21.9 Renal mass N28.89 Nocturnal hypoxia G47.34 (1) Hypertension Hypertension type: essential hypertension Qualified Code(s): I10 - Essential (primary) hypertension
[2022-02-17] MEDS: traZODone HCL 50 MG TAB PO SCH (21:51)
[2022-02-17] MEDS: ASPIRIN 81 MG ECTAB PO SCH (21:52)
[2022-02-17] MEDS: DULoxetine HCL 60 MG CAP PO SCH (21:53)
[2022-02-17] MEDS: PITAVASTATIN 4 MG PO SCH (21:55)
[2022-02-18] MEDS: LORazepam 2 MG/1 ML VIAL IV PRN (03:46)
[2022-02-18] MEDS: SENNA 8.6 MG TAB PO SCH (07:28)
[2022-02-18] MEDS: carvediloL 6.25 MG TAB PO SCH (07:28)
[2022-02-18] MEDS: tiZANidine HCL 4 MG TABLET PO SCH ×2 (07:29→13:05)
[2022-02-18] MEDS: FUROSEMIDE 40 MG TAB PO SCH (07:29)
[2022-02-18] MEDS: DOCUSATE SODIUM 100 MG CAP PO SCH ×2 (07:29→13:05)
[2022-02-18] MEDS: PANTOprazole 40 MG TAB PO SCH (07:29)
[2022-02-18] MEDS: MULTIVITAMIN TAB PO SCH (07:29)
[2022-02-18] MEDS: CHOLECALCIFEROL 1,000 UNITS 25 MCG TAB PO SCH (07:30)
[2022-02-18] MEDS: CYANOCOBALAMIN (B-12) 500 MCG TABLET PO SCH (07:30)
[2022-02-18] MEDS: MIRABEGRON ER 25 MG TAB PO SCH (07:30)
[2022-02-18] MEDS: FLUTICASONE PROPIONATE NA SPR 16 GM BTL NAE SCH (07:30)
[2022-02-18] MEDS: CLOPIDOGREL BISULFATE 75 MG TAB PO SCH (07:30)
[2022-02-18] MEDS: CETIRIZINE HCL 10 MG TABLET PO SCH (07:30)
[2022-02-18] MEDS: SPIRONOLACTONE 25 MG TAB PO SCH (07:31)
[2022-02-18] MEDS: CLOTRIMAZOLE 1% CR 15 GM TUBE TOP SCH (07:31)
[2022-02-18] MEDS: POLYETHYLENE (MIRALAX) 17 GM PACK PO SCH ×2 (07:31→13:05)
[2022-02-18] MEDS: NYSTATIN POWDER 15GM BTL EXT SCH (07:32)
[2022-02-18] MEDS: LIDOCAINE 5% 1 PATCH TD SCH (07:33)
[2022-02-18] MEDS: bisacodyL 10 MG SUPP PR SCH (07:33)
[2022-02-18] MEDS: BACITRACIN OINT 15 GM TUBE TOP SCH (07:34)
[2022-02-18] MEDS: PREGABALIN 75 MG CAP PO SCH (07:36)
[2022-02-18] MEDS: INSULIN GLARGINE SOLOSTAR 100 UNITS/ML 3 ML PEN SC SCH (08:47)
[2022-02-18] MEDS: INSULIN ASPART PER UNIT SC SCH ×2 (08:54→12:33)
[2022-02-18] MEDS ORDERED: ENALAPRIL MALEATE 10 MG TAB PO SCH (09:00)
[2022-02-18] MEDS: cefTRIAXone SODIUM 2,000 MG in DEXTROSE 5% 50 ML IV SCH (12:40)
--- NOTE | 2022-02-18 14:15 | Discharge Summary ---
Date of Service February 18, 2022 Admission HPI Per Admitting Provider Mr. Snyder is a 65y M with a PMH of paraplegia from T10 down with neurogenic bladder & suprapubic catheter, CAD with multiple stents on plavix & ASA, HTN, HLD, paroxysmal afib, pacemaker placement, AAA, GERD, and depression who presents today with complaints of constipation and vomiting. Patient has not had a bowel movement in 4-5 days despite a regular bowel regimen due to his paraplegic status. Last night he took mag citrate to try to have a BM, shortly after he began throwing it up and has been vomiting intermittently ever since. Emesis is nonbloody, he has some abdominal pain with distention. Is otherwise without complaint, no fever/chills, weakness, myalgias, chest pain, palpitations, shortness breath, cough, melena, hematochezia, increased urinary urgency/frequency, dysuria, hematuria. In ED, he was initially hypertensive 175/110, now 108/73 after adequate pain control. Other vital signs within normal limits, stable. CT A/P revealed small bowel loops distended and fluid-filled with distal/terminal ileum decompressed, transition point in anterior RLQ. Also noted is a new 1.6 cm lesion on left kidney suspicious for renal cell carcinoma. Hepatomegaly and severe hepatic steatosis. Labs significant for WBC 19.8, glucose 401, to be 1.2, AST 43, ALT 66. UA contaminated with >30 epi cells, significant for some white blood cells and bacteria with suprapubic catheter in place. CXR unremarkable. Principal Diagnosis Small bowel obstruction Nocturnal hypoxia Catheter associated UTI Incidental renal mass Discharge Exam Constitutional WD/WN, vitals as above + morbidly obese Respiratory normal respiratory effort, lungs clear to auscultation Cardiovascular Rate/Rhythm: regular rate and regular rhythm Heart Sounds: no murmur Extremities: + pedal edema (2+ b/l equal) Gastrointestinal (Abdomen) Inspection/Auscultation: normal bowel sounds Percussion/Palpation: abdomen soft; abdomen nontender, no guarding and abdomen not rigid Neurologic awake; + does not move all extremities (lower extremity paralysis) and not confused Psychiatric A+Ox3, euthymic affect Discharge Data Allergies Allergy/AdvReac Type Severity Reaction Status Date / Time loratadine Allergy Severe BREATHING Verified 02/13/22 14:24 DIFFICULTY shellfish derived Allergy Severe throat Verified 02/13/22 14:24 gets scratchy diphenhydramine Allergy Intermediate HIVES Verified 02/13/22 14:24 Macrolide Antibiotics Allergy Intermediate E-MYCIN=HIVES; Verified 02/13/22 14:24 "MYCINS"--JAUNDICE Fish Containing Products Allergy Mild THROAT Verified 02/13/22 14:24 SWELLS rofecoxib AdvReac Severe CHEST PAIN Verified 02/13/22 14:24 oxycodone AdvReac Intermediate TERRIBLE Verified 02/13/22 14:24 DREAMS,DISORIENTATION Consultations 02/13/22 15:45 ED Decision to Admit Stat 02/13/22 19:14 Consult General Surgery Routine Ordered Studies 02/13/22 13:02 CT abd pelvis IV con only Stat IMPRESSION: 1. Findings are consistent with a small bowel obstruction. A transition point is identified in the right lower quadrant involving the distal ileum. 2. No intraperitoneal free air is identified. There are no thick walled bowel loops, pneumatosis intestinalis, or portal venous gas. 3. There is a new 1.6 cm enhancing cortical lesion suggested in the interpolar left kidney. This is highly suspicious for renal cell carcinoma, and follow-up with urology is recommended. 4. The mid to distal esophagus is thick walled and edematous. Correlate clinically for evidence of esophagitis. 5. Hepatomegaly and severe hepatic steatosis. 6. Additional findings as above. Diabetes Follow up Diabetes Follow-up Needed for HgbA1c >9% Hospital Course (1) SBO (small bowel obstruction): Chuck Snyder is a 66 year old male admitted to [facility] from February 13 - 2021 due to constipation and vomiting. He was diagnosed with a small bowel obstruction seen on CT. This was treated with nasogastric tube, intravenous fluids and bowel rest. He will continue on his usual bowel regimen on discharge. He was also having severe bladder spasms. E. coli grew from suprapubic catheter and given increased in bladder spasm we elected to treat this as a true urinary tract infection initially with ceftriaxone and switched to Keflex on discharge. He was also noted to have low oxygen saturations when sleeping. Suspect due to known underlying obstructive sleep apnea. His current CPAP has been recalled 2 years ago and recommend possibly re-prescribing a different machine. Nocturnal hypoxia confirmed on overnight pulse oximetry and he was prescribed 2 LPM O2 in the mean time to be used at night. HbA1C 9.4. This was discussed with the patient and he reports much worse diet with sweet foods recently. He declined increasing his outpatient diabetes medications. He was recommended to follow up with his primary care provider regarding this. He was also noted to have an incidental renal mass on CT. Recommend referral to urology regarding follow up for this. (2) Catheter-associated urinary tract infection: (3) CAD (coronary artery disease): (4) Hypertension: (5) Atrial fibrillation: (6) Hyperglycemia: (7) Pacemaker: (8) Neurogenic bladder: (9) Spastic paraparesis: (10) Aortic aneurysm: (11) Aortic insufficiency: (12) GERD (gastroesophageal reflux disease): (13) Renal mass: (14) Nocturnal hypoxia: Total Time Total Time Spent Total Time Spent (In Minutes): 45 Discharge Plan Discharge Items Patient Disposition: Home - Self-Care Reason For Visit: SBO Discharge Diagnosis: Small bowel obstruction Nocturnal hypoxia Catheter associated UTI Incidental renal mass Condition on Discharge: Fair Activity: Resume your previous activity Non-emergency contact: Primary Care Provider Call non-emergency contact if: you have any medication questions and your symptoms worsen Follow-up/Referrals: Channing Mock MD [Physician] - (Renal mass follow up) Fransico Mccoy MD [Primary Care Provider] - 02/24/22 1:30 pm Diet: Carb Consistent or DM2 Addtl Attending Provider Instructions: You were admitted to [facility] from February 13 - 2021 due to constipation and vomiting. You were diagnosed with a small bowel obstruction. This was treated with nasogastric tube, intravenous fluids and bowel rest. Ple ase continue on your usual bowel regimen on discharge. You were also having severe bladder spasms. This is possibly due to a catheter associated urinary tract infection. You were treated with ceftriaxone during your inpatient admission and will be switched to Keflex on discharge. You were also noted to have low oxygen saturations when you sleep. This is likely due to your obstructive sleep apnea. Please continue to work with your primary care physician to replace your CPAP machine. We have prescribed you to use 2 LPM O2 in the mean time to be used at night. You diabetes was also not well controlled. HbA1C 9.4. As discussed we will not increase your diabetes mediations but recommend reduce sugar and flour containing foods in your diet. You were also noted to have an incidental renal mass on CT. Please make an appointment and follow up with urology regarding this. Kind regards, Dr Clayton Coates Pending Studies at Discharge: No Stand-Alone Forms: My [facility], Smoking Cessation Medications and DC Order Prescriptions: New cephalexin 500 mg tablet 500 mg PO QID 5 Days Qty: 20 RF: 0 Continued tizanidine 4 mg capsule 4 mg PO TID RF: 0 polyethylene glycol 3350 [Miralax] 17 gram/dose powder 8.5 g PO HS RF: 0 bisacodyl [Dulcolax (bisacodyl)] 10 mg suppository 10 mg IA QAM RF: 0 metformin 1,000 mg tablet 1,000 mg PO BID RF: 0 lidocaine 5 % ointment 1 applic topical Q6H RF: 0 Myrbetriq 50 mg tablet extended release 24 hr 50 mg PO QAM RF: 0 omeprazole 20 mg capsule,delayed release(DR/EC) 20 mg PO BID RF: 0 multivitamin Tablet 1 tab PO QAM RF: 0 clopidogrel [Plavix] 75 mg Tablet 75 mg PO QAM RF: 0 nitroglycerin [Nitrostat] 0.4 mg Tablet, Sublingual 1 tab Sublingual UD PRN (Reason: Chest Pain) RF: 0 fluticasone propionate [Flonase Allergy Relief] 50 mcg/actuation [place],Suspension 1 spray INTRANASAL QAM RF: 0 docusate sodium 100 mg Tablet 100 mg PO TID RF: 0 coenzyme Q10 [CoQ-10] 100 mg Capsule 200 mg PO HS RF: 0 calcium carbonate-vitamin D3 [Calcium 500 + D] 500 mg(1,250mg) -200 unit Tablet 1 tab PO BID RF: 0 Zyrtec 10 mg Capsule 10 mg PO QAM RF: 0 trazodone 50 mg Tablet 25 mg PO HS RF: 0 duloxetine 60 mg Capsule,Delayed Release(Dr/Ec) 60 mg PO HS RF: 0 sennosides 8.6 mg Tablet 8.6 mg PO BID RF: 0 aspirin 81 mg Tablet,Delayed Release (Dr/Ec) 81 mg PO HS RF: 0 hydrocodone-acetaminophen 10-325 mg Tablet 1 tab PO TID PRN (Reason: Pain) RF: 0 carvedilol 12.5 mg tablet 6.25 mg PO BID RF: 0 alendronate 70 mg tablet 70 mg PO WK RF: 0 bacitracin zinc 500 unit/gram ointment 1 applic TOPICAL QAM RF: 0 cyanocobalamin (vitamin B-12) [Vitamin B-12] 500 mcg Tablet 1,000 mcg PO QAM RF: 0 clotrimazole 1 % cream 1 applic TOPICAL QAM RF: 0 cholecalciferol (vitamin D3) [Vitamin D3] 25 mcg (1,000 unit) Capsule 50 mcg PO QDL RF: 0 furosemide 40 mg tablet 40 mg PO QAM RF: 0 lidocaine HCl 2 % jelly 1 applic topical QAM RF: 0 spironolactone 25 mg tablet 25 mg PO QAM RF: 0 lidocaine 5 % adhesive patch,medicated 1 patch transdermal ONAMOFFPM RF: 0 ibuprofen 400 mg tablet 400 mg PO Q8H PRN (Reason: Pain) RF: 0 nitroglycerin 400 mcg/spray spray,non-aerosol 1 spray translingual UD PRN (Reason: Chest Pain) RF: 0 nystatin 100,000 unit/gram powder 1 applic TOPICAL QAM RF: 0 ramipril 10 mg capsule 10 mg PO BID RF: 0 Zypitamag 4 mg tablet 4 mg PO HS RF: 0 baclofen 10 mg tablet 10 mg PO QID RF: 0 pregabalin 225 mg capsule 225 mg PO BID RF: 0 Discharge Orders: Discharge Order (Routine); Ordered 02/18/22 Ordered By: Clayton Moreno/Other Patient Handouts: High Blood Sugar (Hyperglycemia), Managing Type 2 Diabetes, Diabetes: Meal Planning Admission Data Admit Date/Time: 02/13/22 15:45 Attending Provider: Clayton Coates Admit Provider: Leobardo Rico Primary Care Provider: Fransico Mccoy Other Providers: Leobardo Rico ; Salas Saunders ; Jimmy Nicholas ; Khoa Reid ; Dinesh Simon Jr ; Peter Turner ; Yariel Livingston ; Madelin Sanders ; Phil Jordan ; Dayo Murphy ; [facility] Other Interventions: Discharge Summary Assessment (RN) Last Done: 02/18/22 14:33 Coding Level of Care Code D/C DAY MANAGEMENT >30 MINS Diagnoses SBO (small bowel obstruction) K56.609 Catheter-associated urinary tract infection T83.511A; N39.0 CAD (coronary artery disease) I25.10 Hypertension I10 Hypertension type: essential hypertension Atrial fibrillation I48.91 Hyperglycemia R73.9 Pacemaker Z95.0 Neurogenic bladder N31.9 Spastic paraparesis Aortic aneurysm I71.9 Aortic insufficiency I35.1 GERD (gastroesophageal reflux disease) K21.9 Renal mass N28.89 Nocturnal hypoxia G47.34
== END 2022-02-18 16:45 | disposition home or self-care (01) | DRG 389 ==
LOC: ED 12:25 → 3W 15:45 → SUATTDRO 15:45 → 3W 18:54

== ENCOUNTER 2022-10-07 08:37 | Inpatient (IN) ==
--- NOTE | 2022-09-03 09:51 | PAT Medication Instructions ---
Medication Instructions Date of Service September 03, 2022 Home Medications Medication Instructions Recorded benzonatate 100 mg capsule 100 mg PO TID PRN cough #15 caps 04/22/22 calcium carbonate 500 mg-vitamin D3 5 mcg (200 unit) tablet (Calcium 500 + D) 1 tab PO BID clopidogrel 75 mg tablet (Plavix) 75 mg PO QAM coenzyme Q10 100 mg capsule (CoQ-10) 100 mg PO HS docusate sodium 100 mg tablet 100 mg PO TID fluticasone propionate 50 mcg/actuation nasal spray,suspension (Flonase Allergy Relief) 1 spray intranasal QAM PRN multivitamin 1 tab PO QAM nitroglycerin 0.4 mg sublingual tablet (Nitrostat) 1 tab sublingual UD PRN duloxetine 60 mg capsule,delayed release 60 mg PO HS sennosides 8.6 mg tablet 8.6 mg PO BID trazodone 50 mg tablet 25 mg PO HS omeprazole 20 mg capsule,delayed release 20 mg PO BID metformin 1,000 mg tablet 1,000 mg PO BID lidocaine 5 % topical ointment 1 applic topical Q6H FOOT & BACK PAIN mirabegron 50 mg tablet,extended release 24 hr (Myrbetriq) 50 mg PO QAM bisacodyl 10 mg rectal suppository (Dulcolax (bisacodyl)) 10 mg NV QAM PRN polyethylene glycol 3350 17 gram/dose oral powder (Miralax) 17 g PO HS tizanidine 4 mg capsule 4 mg PO TID aspirin 81 mg tablet,delayed release 81 mg PO HS alendronate 70 mg tablet 70 mg PO WK bacitracin zinc 500 unit/gram topical ointment 1 applic topical QAM PRN carvedilol 12.5 mg tablet 6.25 mg PO BID cholecalciferol (vitamin D3) 25 mcg (1,000 unit) capsule (Vitamin D3) 50 mcg PO QDL clotrimazole 1 % topical cream 1 applic topical BID PRN cyanocobalamin (vitamin B-12) 500 mcg tablet (Vitamin B-12) 1,000 mcg PO DAILY furosemide 40 mg tablet 40 mg PO QAM ibuprofen 400 mg tablet 400 mg PO Q8H PRN lidocaine 5 % topical patch 1 patch transdermal ONAMOFFPM PRN lidocaine HCl 2 % mucosal jelly 1 applic topical DIRECTED PRN nitroglycerin 400 mcg/spray translingual 1 spray translingual UD PRN nystatin 100,000 unit/gram topical powder 1 applic topical BID PRN ramipril 10 mg capsule 10 mg PO BID spironolactone 25 mg tablet 25 mg PO QAM baclofen 10 mg tablet 10 mg PO QID PRN pregabalin 225 mg capsule 225 mg PO BID benzonatate 100 mg capsule 100 mg PO TID PRN carboxymethylcellulose sodium 0.5 % eye drops 1 drp OPL QID cetirizine 10 mg tablet (Zyrtec) 10 mg PO QAM citric ac 1980.6 mg-glucono 59.4 mg-mag carb 980.4 mg/30 mL irrig.soln (Renacidin) 30 ml irrigation DAILY PRN clobetasol 0.05 % scalp solution 1 applic topical BID PRN dantrolene 25 mg capsule 25 mg PO TID desonide 0.05 % topical cream 1 applic topical BID PRN ketoconazole 2 % shampoo 1 ea topical 2XWK lorazepam 1 mg tablet 1 mg PO BID PRN magnesium oxide 420 mg tablet 420 mg PO DAILY phenylephrine 0.25 %-pramoxine 1 %-glycerin-wh.petrolatum rectal cream (Hemorrhoidal Cream) 1 applic NV HS PRN pitavastatin magnesium 4 mg tablet 4 mg PO HS sodium chloride 0.65 % nasal spray aerosol (Saline Nasal) 1 spray intranasal Q2H PRN Minie Ememez Plus 1 dose NV QAM hydrocodone 5 mg-acetaminophen 325 mg tablet 1 tab PO TID semaglutide 1 mg/dose (2 mg/1.5 mL) subcutaneous pen injector (Ozempic) 1 mg subcut WK Continue as directed nitroglycerin 0.4 mg sublingual tablet (Nitrostat) 1 tab sublingual UD PRN(if needed) alendronate 70 mg tablet 70 mg PO WK (do NOT take day of surgery) nitroglycerin 400 mcg/spray translingual 1 spray translingual UD PRN(if needed) citric ac 1980.6 mg-glucono 59.4 mg-mag carb 980.4 mg/30 mL irrig.soln (Renacidin) 30 ml irrigation DAILY PRN(if needed) semaglutide 1 mg/dose (2 mg/1.5 mL) subcutaneous pen injector (Ozempic) 1 mg west bcut WK ASK your surgeon for instructions ibuprofen 400 mg tablet 400 mg PO Q8H PRN ASK your prescriber and surgeon clopidogrel 75 mg tablet (Plavix) 75 mg PO QAM aspirin 81 mg tablet,delayed release 81 mg PO HS STOP taking 2 weeks before surgery coenzyme Q10 100 mg capsule (CoQ-10) 100 mg PO HS STOP taking 24 hours before surgery lidocaine 5 % topical ointment 1 applic topical Q6H FOOT & BACK PAIN bacitracin zinc 500 unit/gram topical ointment 1 applic topical QAM PRN clotrimazole 1 % topical cream 1 applic topical BID PRN lidocaine 5 % topical patch 1 patch transdermal ONAMOFFPM PRN lidocaine HCl 2 % mucosal jelly 1 applic topical DIRECTED PRN nystatin 100,000 unit/gram topical powder 1 applic topical BID PRN clobetasol 0.05 % scalp solution 1 applic topical BID PRN desonide 0.05 % topical cream 1 applic topical BID PRN ketoconazole 2 % shampoo 1 ea topical 2XWK phenylephrine 0.25 %-pramoxine 1 %-glycerin-wh.petrolatum rectal cream (Hemorrhoidal Cream) 1 applic NV HS PRN DO NOT take the morning of surgery calcium carbonate 500 mg-vitamin D3 5 mcg (200 unit) tablet (Calcium 500 + D) 1 tab PO BID docusate sodium 100 mg tablet 100 mg PO TID multivitamin 1 tab PO QAM sennosides 8.6 mg tablet 8.6 mg PO BID metformin 1,000 mg tablet 1,000 mg PO BID bisacodyl 10 mg rectal suppository (Dulcolax (bisacodyl)) 10 mg NV QAM PRN mirabegron 50 mg tablet,extended release 24 hr (Myrbetriq) 50 mg PO QAM tizanidine 4 mg capsule 4 mg PO TID cholecalciferol (vitamin D3) 25 mcg (1,000 unit) capsule (Vitamin D3) 50 mcg PO QDL cyanocobalamin (vitamin B-12) 500 mcg tablet (Vitamin B-12) 1,000 mcg PO DAILY furosemide 40 mg tablet 40 mg PO QAM ramipril 10 mg capsule 10 mg PO BID spironolactone 25 mg tablet 25 mg PO QAM baclofen 10 mg tablet 10 mg PO QID PRN benzonatate 100 mg capsule 100 mg PO TID PRN cetirizine 10 mg tablet (Zyrtec) 10 mg PO QAM dantrolene 25 mg capsule 25 mg PO TID magnesium oxide 420 mg tablet 420 mg PO DAILY Minie Ememez Plus 1 dose NV QAM Take morning of surgery With a small sip of water, OTHERWISE NOTHING TO EAT OR DRINK AFTER MIDNIGHT: fluticasone propionate 50 mcg/actuation nasal spray,suspension (Flonase Allergy Relief) 1 spray intranasal QAM PRN(if needed) omeprazole 20 mg capsule,delayed release 20 mg PO BID carvedilol 12.5 mg tablet 6.25 mg PO BID pregabalin 225 mg capsule 225 mg PO BID carboxymethylcellulose sodium 0.5 % eye drops 1 drp OPL QID lorazepam 1 mg tablet 1 mg PO BID PRN(if needed) sodium chloride 0.65 % nasal spray aerosol (Saline Nasal) 1 spray intranasal Q2H PRN(if needed) hydrocodone 5 mg-acetaminophen 325 mg tablet 1 tab PO TID Take evening before surgery calcium carbonate 500 mg-vitamin D3 5 mcg (200 unit) tablet (Calcium 500 + D) 1 tab PO BID docusate sodium 100 mg tablet 100 mg PO TID duloxetine 60 mg capsule,delayed release 60 mg PO HS sennosides 8.6 mg tablet 8.6 mg PO BID trazodone 50 mg tablet 25 mg PO HS omeprazole 20 mg capsule,delayed release 20 mg PO BID metformin 1,000 mg tablet 1,000 mg PO BID polyethylene glycol 3350 17 gram/dose oral powder (Miralax) 17 g PO HS tizanidine 4 mg capsule 4 mg PO TID carvedilol 12.5 mg tablet 6.25 mg PO BID ramipril 10 mg capsule 10 mg PO BID baclofen 10 mg tablet 10 mg PO QID PRN(if needed) pregabalin 225 mg capsule 225 mg PO BID benzonatate 100 mg capsule 100 mg PO TID PRN(if needed) carboxymethylcellulose sodium 0.5 % eye drops 1 drp OPL QID dantrolene 25 mg capsule 25 mg PO TID lorazepam 1 mg tablet 1 mg PO BID PRN(if needed) pitavastatin magnesium 4 mg tablet 4 mg PO HS sodium chloride 0.65 % nasal spray aerosol (Saline Nasal) 1 spray intranasal Q2H PRN(if needed) hydrocodone 5 mg-acetaminophen 325 mg tablet 1 tab PO TID Other Notes If you have any questions please call us at [phone] or [phone] or [phone] or [phone]
--- NOTE | 2022-09-08 10:51 | Anesthesiology Consultation ---
Date of Service September 08, 2022 Assessment & Plan (1) Encounter for pre-operative examination: - awaiting stress test, final cardiology clearance. - high cardio risk: Case discussed in detail with Dr Gomez. He advised patient undergo stress testing as per cardiology below and if cleared by cardiology, can undergo surgery at [facility]. He advised patient use Minie Ememez night before surgery, NOT DOS. Pt and made aware. - Home medications, pt's requested if/what she should bring in which has been requested during previous admissions. Per Jose Antonio in pharmacy that would pend formulary so he recommends at this time that patient's would bring in all home medications to nursing staff at admission for planned surgery. - check BSG am DOS. - pacemaker: Medtronic. - intrathecal baclofen pump. - cardiology pre-op 09/07/22 [facility]: "...Markedly complex 67-year-old male here today for routine cardiology follow-up as well as preoperative cardiology consultation prior to back surgery by Dr. Almaraz on October 07, 2022. Options of management discussed in detail with patient and . Functional capacity poor. Estimated risk of adverse outcome for this noncardiac surgery is high, multifactorial in etiology. Risks discussed. Referral for pharmacological stress testing discussed (both with limitations) including possible outcomes. Patient declines referral for pharmacological stress testing and accepts associated perioperative risks. Pre-admission laboratory work and chest x-ray to be obtaine d. If aspirin (81 mg/day) needs to be held, please hold for the shortest period of time and resume postoperatively as soon as determined to be safe. Ok to hold clopidogrel (Plavix) 7 days prior to procedure. Continue carvedilol without perioperative interruption. Hold furosemide (Lasix), spironolactone (Aldactone), and ramipril (Altace) the morning of the procedure, resuming postoperatively as hemodynamics permit..." Chart Review Chart Review: Pending: Refer to Additional Notes / Consult section and Patient seen in Pre Admission Testing Teaching & Discussion Pre-Anesthesia Teaching/Discussion Notes: Instructed NPO after midnight before surgery, except medications with 15 cc of water. Medication instructions provided according to the PAT guidelines. History Surgery Operation Date: 10/07/22 07:45 Proposed Procedures p T3-T6 Decompression and Fusion, Hardware Removal at T6-T8, Spinal Cord Monitoring - Barry Almaraz, Height/Weight Height: 5 ft 8 in Weight: 131.088 kg Allergies Allergy/AdvReac Type Severity Reaction Status Date / Time erythromycin base Allergy Severe Anaphylaxis Verified 09/02/22 09:53 Fish Containing Products Allergy Severe THROAT Verified 09/02/22 09:53 SWELLS loratadine Allergy Severe BREATHING Verified 09/02/22 09:53 DIFFICULTY shellfish derived Allergy Severe throat Verified 09/02/22 09:53 gets scratchy diphenhydramine Allergy Intermediate HIVES Verified 09/02/22 09:53 Macrolide Antibiotics Allergy Intermediate E-MYCIN=HIVES; Verified 09/02/22 09:53 "MYCINS"--JAUNDICE rofecoxib AdvReac Severe CHEST PAIN Verified 09/02/22 09:53 zolpidem AdvReac Severe NIGHTMARES Verified 09/02/22 09:53 oxycodone AdvReac Intermediate TERRIBLE Verified 09/02/22 09:53 DREAMS,DISORIENTATION Medications Home Medications Medication Instructions Recorded Confirmed Last Taken calcium carbonate 500 mg-vitamin 1 tab PO BID 12/05/18 09/02/22 04/22/22 08:00 D3 5 mcg (200 unit) tablet (Calcium 500 + D) clopidogrel 75 mg tablet (Plavix) 75 mg PO QAM 12/05/18 09/02/22 04/22/22 coenzyme Q10 100 mg capsule 100 mg PO HS 12/05/18 09/02/22 04/21/22 (CoQ-10) docusate sodium 100 mg tablet 100 mg PO TID 12/05/18 09/02/22 02/13/22 fluticasone propionate 50 1 spray intranasal QAM PRN Nasal 12/05/18 09/02/22 02/13/22 mcg/actuation nasal Congestion spray,suspension (Flonase Allergy Relief) multivitamin 1 tab PO QAM 12/05/18 09/02/22 04/22/22 nitroglycerin 0.4 mg sublingual 1 tab sublingual UD PRN Chest Pain 12/05/18 09/02/22 Unknown tablet (Nitrostat) duloxetine 60 mg capsule,delayed 60 mg PO HS 12/06/18 09/02/22 04/21/22 release sennosides 8.6 mg tablet 8.6 mg PO BID 12/06/18 09/02/22 02/13/22 trazodone 50 mg tablet 25 mg PO HS 12/06/18 09/02/22 02/12/22 omeprazole 20 mg capsule,delayed 20 mg PO BID 04/15/20 09/02/22 04/22/22 release metformin 1,000 mg tablet 1,000 mg PO BID 07/02/20 09/02/22 04/22/22 08:00 lidocaine 5 % topical ointment 1 applic topical Q6H FOOT & BACK 07/10/20 09/02/22 02/11/22 PAIN mirabegron 50 mg tablet,extended 50 mg PO QAM 07/10/20 09/02/22 04/22/22 release 24 hr (Myrbetriq) bisacodyl 10 mg rectal suppository 10 mg OR QAM PRN Constipation 09/24/20 09/02/22 02/13/22 (Dulcolax (bisacodyl)) polyethylene glycol 3350 17 17 g PO HS 09/24/20 09/02/22 04/21/22 gram/dose oral powder (Miralax) tizanidine 4 mg capsule 4 mg PO TID 09/24/20 09/02/22 04/22/22 14:00 aspirin 81 mg tablet,delayed 81 mg PO HS 10/30/20 09/02/22 04/21/22 release alendronate 70 mg tablet 70 mg PO WK 02/13/22 09/02/22 04/19/22 bacitracin zinc 500 unit/gram 1 applic topical QAM PRN Skin 02/13/22 09/02/22 02/13/22 topical ointment Irritation carvedilol 12.5 mg tablet 6.25 mg PO BID 02/13/22 09/02/22 04/22/22 08:00 cholecalciferol (vitamin D3) 25 50 mcg PO QDL 02/13/22 09/02/22 04/22/22 mcg (1,000 unit) capsule (Vitamin D3) clotrimazole 1 % topical cream 1 applic topical BID PRN SKIN 02/13/22 09/02/22 02/13/22 IRRITATION ON CHEST cyanocobalamin (vitamin B-12) 500 1,000 mcg PO DAILY 02/13/22 09/02/22 04/21/22 mcg tablet (Vitamin B-12) furosemide 40 mg tablet 40 mg PO QAM 02/13/22 09/02/22 04/22/22 ibuprofen 400 mg tablet 400 mg PO Q8H PRN Pain 02/13/22 09/02/22 02/12/22 lidocaine 5 % topical patch 1 patch transdermal ONAMOFFPM PRN 02/13/22 09/02/22 02/11/22 Back Pain lidocaine HCl 2 % mucosal jelly 1 applic topical DIRECTED PRN 02/13/22 09/02/22 02/13/22 BOWEL PROGRAM nitroglycerin 400 mcg/spray 1 spray translingual UD PRN Chest 02/13/22 09/02/22 Unknown translingual Pain nystatin 100,000 unit/gram topical 1 applic topical BID PRN Skin 02/13/22 09/02/22 02/13/22 powder Irritation ramipril 10 mg capsule 10 mg PO BID 02/13/22 09/02/22 04/22/22 08:00 spironolactone 25 mg tablet 25 mg PO QAM 02/13/22 09/02/22 04/22/22 baclofen 10 mg tablet 10 mg PO QID PRN MUSCLE SPASMS 02/14/22 09/02/22 Unknown pregabalin 225 mg capsule 225 mg PO BID 02/14/22 09/02/22 04/22/22 08:00 benzonatate 100 mg capsule 100 mg PO TID PRN cough #15 caps 04/22/22 09/02/22 Unknown carboxymethylcellulose sodium 0.5 1 drp OPL QID 04/22/22 09/02/22 04/22/22 12:00 % eye drops cetirizine 10 mg tablet (Zyrtec) 10 mg PO QAM 04/22/22 09/02/22 Unknown citric ac 1980.6 mg-glucono 59.4 30 ml irrigation DAILY PRN 04/22/22 09/02/22 Unknown mg-mag carb 980.4 mg/30 mL NEEDED irrig.soln (Renacidin) clobetasol 0.05 % scalp solution 1 applic topical BID PRN EAR 04/22/22 09/02/22 Unknown DERMATITIS dantrolene 25 mg capsule 25 mg PO TID 04/22/22 09/02/22 04/22/22 14:00 desonide 0.05 % topical cream 1 applic topical BID PRN SKIN 04/22/22 09/02/22 Unknown IRRITATION ON FACE ketoconazole 2 % shampoo 1 ea topical 2XWK 04/22/22 09/02/22 Unknown lorazepam 1 mg tablet 1 mg PO BID PRN MUSCLE SPASMS 04/22/22 04/22/22 Unknown magnesium oxide 420 mg tablet 420 mg PO DAILY 04/22/22 09/02/22 04/22/22 phenylephrine 0.25 %-pramoxine 1 1 applic OR HS PRN Hemorrhoids 04/22/22 09/02/22 Unknown %-glycerin-wh.petrolatum rectal cream (Hemorrhoidal Cream) pitavastatin magnesium 4 mg tablet 4 mg PO HS 04/22/22 09/02/22 04/21/22 sodium chloride 0.65 % nasal spray 1 spray intranasal Q2H PRN NASAL 04/22/22 09/02/22 Unknown aerosol (Saline Nasal) DRYNESS Minie Ememez Plus 1 dose OR QAM 09/02/22 09/02/22 Unknown hydrocodone 5 mg-acetaminophen 325 1 tab PO TID 09/02/22 09/02/22 Unknown mg tablet semaglutide 1 mg/dose (2 mg/1.5 1 mg subcut WK 09/02/22 09/02/22 Unknown mL) subcutaneous pen injector (Ozempic) Past Medical History Medical History (Updated 09/08/22 @ 16:25 by Diya Fulton PA-C) Aortic aneurysm UNDER SURVEILLANCE BY VASCULAR (STEPAN) Aortic insufficiency mild on 05/2022 echo Aortic stenosis mild to moderate, 05/2022 echo Atrial fibrillation CAD (coronary artery disease) s/p 6 stents, most recent in 2011 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 Depression Diabetes mellitus, type 2 NIDDM 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 moderately enlarged 4.4 cm GERD (gastroesophageal reflux disease) controlled, stable per pt History of COVID-19 10/18/20>hospitalized for SBO, COVID symptoms resolved History of intestinal obstruction NO SURGERY REQUIRED History of pressure ulcer NOTHING CURRENT NOW>"NOTHING OPENED, REDNESS ONLY" Hyperlipidemia Hypertension controlled, stable per pt Morbid obesity Myocardial Infarction X4 - LAST WAS 2011 Neurogenic bladder indwelling supra-pubic catheter Neurogenic bowel see med list for bowel regimen Pacemaker MEDTRONIC; 2/2 SYMPTOMATIC BRADYCARDIA- LAST PACER CHECK/STACY 08/13/22 Paralysis PARLYSIS/PARATHESIA OF B/L LOWER EXTREMITIES FOLLOWING LOWER THORACIC INTERBODY FUSION 11/2017 Renal lesion new 1.6 cm enhancing cortical lesion suggested in the interpolar left kidney. This is highly suspicious for renal cell carcinoma, and follow-up with urology is recommended-they report monitoring CT in [address] Bran Nova with [facility] Rotator cuff tear rt Sleep apnea CPAP RECALLED>USING O2 AT 2L HS 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 Suprapubic catheter Patient denies h/o stroke, seizures, blood clots or blood transfusions. Exercise / Class Metabolic Activity IV < 2 Limit ADL/Bedbound Past Family History Family History Other No family history of adverse response to anesthesia Past Surgical History Surgical History Fusion of spine T9-T11 Removal of Hardware, T5-T11 Decompression and Fusion: 12/13/18: Grade view 1, MAC#3, ETT 8.5 at [facility] "fused from T6-S1" T9-T12 Grade 1 view, MAC 3, ETT 8 11/22/17: "...no voluntary movement in his lower extremities...no sensation noted below approx inguinal ligament bilat...to be monitored on med-surgical floor...Dr. Almaraz will start...steroid protocol..." H/O sinus surgery History of arthroscopic surgery of shoulder X2 (LEFT) 09/20/15 LMA 5 + PNB. Post-op note: "...in the PACU he was initially hypertensive with BP 170s/110s...given labetalol and hydralazine...now 140s/80s...HR remained in the 60s to 70s...SpO2 has been in the high 90s..." History of back surgery X4 History of cardiac cath X15; TOTAL OF 6 STENTS (STENT PLACED LAST 2011) History of cardiac pacemaker History of cholecystectomy History of cystoscopy History of gastric bypass GASTRIC SLEEVE PROCEDURE History of tonsillectomy and adenoidectomy History of tooth extraction History of total knee replacement B/L S/P cervical spinal fusion C5-6 limited rom S/P UPPP (uvulopalatopharyngoplasty) Status post insertion of intrathecal baclofen pump May 2020-Prometra pump at [facility] Past Anesthesia History No Hx of Anesthesia Complications and No Family Hx of Anesthesia Complications History of PONV No Hx of PONV and Hx of Motion Sickness Social History Smoking Status: Former smoker tobacco type: cigarettes Do You Dip or Chew Tobacco: No Smoking End Date: 1986 Hx Alcohol Use: Yes Alcohol type: hard liquor alcohol intake frequency: holidays/special occasions only substance use type: does not use Review of Systems Patient denies chest pain, shortness of breath, dyspnea on exertion, snoring, witnessed apneas, reflux, fever, chills, cough, wheezing, or palpitations. Physical Exam Vital Signs Vitals BP 130/82 P 73 SP02 96% on RA RESP 18 Physical Patient is alert and oriented when I entered room, dozing off occasionally during visit (per his , this is typical degree of somnolence for pt at this interval from taking his am medications) Pt was quickly responsive to verbal stimuli and answers were obtained from pt and PMHx from his with patient's verbal consent. He is speaking clearly and coherently in full sentences awake Full cervical extension range of motion without pain TMD 3.5 finger breadths Mallampati Score 3 Dentition: intact, chipped front upper tooth, crown left upper back tooth; denies loose teeth, implants or bridges Lungs: normal respiratory effort. Clear throughout to auscultation, no adventitious breath sounds Cardiac: regular rate and rhythm, no murmurs noted Carotid arteries: negative bruit bilat Lab Results Anesthesia Preop Results Results Anesthesia Widget: WBC 7.45 K/ul (4.8-10.8) 09/08/22 Hgb 13.8 g/dl (14.0-18.0) L 09/08/22 Hct 41.3 % (40.1-51.0) 09/08/22 Plt 222 K/uL (130-400) 09/08/22 Na 136 mmol/L (136-145) 09/08/22 K 3.6 mmol/L (3.5-5.1) 09/08/22 Cl 98 mmol/L (98-107) 09/08/22 CO2 29 mmol/L (21-32) 09/08/22 BUN 15 mg/dl (6-23) 09/08/22 Creat 0.76 mg/dl (0.6-1.4) 09/08/22 Glucose Level 127 mg/dl (70-99(Fasting)) H 09/08/22 PT 10.9 Seconds (9.0-12.0) 09/08/22 PTT 29.5 Seconds (21.0-31.0) 09/08/22 INR 1.0 (0.9-1.1) 09/08/22 HA1c 5.3 % (4.5-5.6) 09/08/22 Urine Color Yellow 09/08/22 Urine Appearance Clear (Clear) 09/08/22 Urine pH 7.0 (4.5-7.5) 09/08/22 Urine Specific [place] 1.007 (1.000-1.030) 09/08/22 Urine Protein Negative (Negative) 09/08/22 Urine Glucose (UA) Negative (Negative) 09/08/22 Urine Ketones Negative (Negative) 09/08/22 Urine Blood Negative (Negative) 09/08/22 Urine Nitrite Positive (Negative) A 09/08/22 Urine Bilirubin Negative (Negative) 09/08/22 Urine Urobilinogen Negative (Negative) 09/08/22 Urine Leukocyte Esterase 3+ (Negative) H 09/08/22 Urine WBC (Auto) 10-30 /hpf (0-5) H 09/08/22 Urine RBC (Auto) 0-4 /hpf (0-4) 09/08/22 Urine Hyaline Casts (Auto) 1-5 /lpf (0-5) 09/08/22 Urine Epithelial Cells (Auto) 0-5 /lpf (0-5) 09/08/22 Urine Bacteria (Auto) 4+ (Negative) H 09/08/22 Blood Type O Positive 09/08/22 Antibody Screen NEGATIVE 09/08/22 Testing Laboratory Results Joan at surgeon's office aware of abnormal UA. Electrocardiogram Date: 04/22/22 Atrial paced rhythm, rate 70 bpm Poor R wave progression, consider anterior MS vs lead placement vs LVH Echocardiogram Date: 05/11/22 EF 60-64% Grade II diastolic dysfunction Normal LV wall motion Moderate cLVH Aortic valve moderately calcified Mild to moderate aortic valve stenosis, peak aortic valve velocity 2.9 c/sec. Max PG 33mmHg, mean 18.6 mmHg. EZ 1.2-1.3 cm2 Mild aortic valve regurgitation Aortic root borderline enlarged 3.8 cm Proximal ascending thoracic aorta moderately enlarged 4.4 cm Other Testing Pacemaker report 08/13/22 Medtronic Mode AAIR/DDDR Mode switch episodes 0 Atrial pacing 48%, RV pacing 0% Thoracic spine CT 07/23/22 1. Severe disc space narrowing with vacuum phenomenon, subchondral sclerosis, and subchondral cystic change at the T4-T5 level has progressed in the interval. There is also sclerosis and vacuum phenomenon within the T4-T5 facets which has progressed. There is moderate paravertebral soft tissue thickening/edema at this level which is also progressed compared to the 2020 examination but is similar to the 04/22/2022 chest CTA. Therefore, these findings favor severe degenerative changes. A superimposed discitis/osteolysis is considered less likely given the long-standing change but not entirely excluded. 2. Progressive healing with a nondisplaced right posterior fifth rib. 3. Postoperative changes again noted. The hardware appears intact. Chest CTA 04/22/22 1. No CTA evidence for pulmonary embolus. 2. No acute chest disease. 3. Mild cardiomegaly with extensive coronary artery calcification. Abdomen pelvis CT 02/13/22 Lung bases: The heart is normal in size and without pericardial effusion. Pacemaker leads are noted. Circumferential wall thickening is noted in the mid to distal esophagus with mucosal hyperemia. The lung bases are clear noting bibasilar scarring/atelectasis. Liver: The contrast-enhanced liver is enlarged, measuring 22.0 cm in length. The liver demonstrates diffusely diminished attenuation consistent with severe hepatic steatosis.. There is no intrahepatic biliary ductal dilatation. The hepatic veins and portal veins are patent. Gallbladder: Surgically absent noting clips in the gallbladder fossa. Kidneys: The contrast enhanced kidneys demonstrate cortical atrophy and are without hydronephrosis. The kidneys enhance symmetrically. A 1.6 cm enhancing cortical lesion is suggested in the interpolar left kidney on axial image #255. Abdominal vasculature: The abdominal aorta is normal in course and caliber noting moderate to advanced atherosclerotic calcification. Stomach and bowel: There is a small hiatal hernia. Postoperative change is noted in the stomach. The small bowel loops are distended and fluid-filled, measuring up to 4.5 cm in diameter. The distal/terminal ileum is decompressed, and the appearance is consistent with a small bowel obstruction. A transition point is suggested in the anterior right lower quadrant on image #265. No focally thick walled bowel loops are identified. There is no pneumatosis intestinalis or portal venous gas. There is mild colonic diverticulosis without CT evidence of acute diverticulitis. Fecal retention is seen throughout the colon. The appendix is well-visualized and normal. Pelvic viscera: The bladder is decompressed around a suprapubic catheter. The prostate is diminutive and heterogeneous. Skeletal structures: The skeletal structures are osteopenic. Spondylotic and extensive postoperative change is seen throughout the thoracolumbar spine. No lytic or blastic lesions are seen. A pain pump catheter is noted in the right lower quadrant abdominal wall. Lead enters the central spinal canal in the lumbar region and extends into the thoracic region. 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 IMPRESSION: 1. Findings are consistent with a small bowel obstruction. A transition point is identified in the right lower quadrant involving the distal ileum. 2. No intraperitoneal free air is identified. There are no thick walled bowel loops, pneumatosis intestinalis, or portal venous gas. 3. There is a new 1.6 cm enhancing cortical lesion suggested in the interpolar left kidney. This is highly suspicious for renal cell carcinoma, and follow-up with urology is recommended. 4. The mid to distal esophagus is thick walled and edematous. Correlate clinically for evidence of esophagitis. 5. Hepatomegaly and severe hepatic steatosis. 6. Additional findings as above. COVID-19 Risk Screen Screening Information COVID-19 Screen Date: 09/08/22 Exposure 21 Days Family/Household +COVID Last 21 Days: No Exposure 10 Days Any COVID Exposure Last 10 Days: No Symptoms Last 10 Days Experienced COVID Sx Last 10 Days: No + COVID 0-90 Days COVID + in Last 0-90 Days: No
[~2022-10-07 08:37] MED LIST changes: -CEFAZOLIN 3000MG 65 ML IV SCH; -CeleBREX 200 MG CAP PO SCH; +GABAPENTIN 300 MG CAP PO SCH; -GABAPENTIN 300 MG x 2 PO SCH
[2022-10-07] MEDS ORDERED: LIDOCAINE 2% MPF LOCAL 5 ML VIAL INFIL ONE (09:13)
[2022-10-07] MEDS ORDERED: ONDANSETRON INJ 2 MG/ML 2 ML VIAL ONE (09:13)
[2022-10-07] MEDS ORDERED: PROPOFOL IV EMULSION 10 MG/ML 20 ML VIAL IV ONE (09:13)
[2022-10-07] MEDS ORDERED: ROCURONIUM BROMIDE 10 MG/ML 5 ML VIAL IV ONE (09:13)
[2022-10-07] MEDS ORDERED: DEXAMETHASONE SOD INJ 4 MG/ML VIAL ONE (09:13)
[2022-10-07] MEDS ORDERED: fentaNYL citrate 100 MCG/2 ML VIAL ONE ×2 (09:14→12:51)
[2022-10-07] MEDS ORDERED: MIDAZOLAM HCL 1 MG/ML 2ML VIAL ONE (09:14)
--- NOTE | 2022-10-07 09:19 | History & Physical Bridge Note ---
Date of Service October 07, 2022 History & Physical Bridge Note I have examined the patient, reviewed the History & Physical and in the interval since the performance of the History & Physical I have noted the following changes of clinical significance: no changes noted
--- NOTE | 2022-10-07 09:20 | History & Physical Report ---
Date of Service October 07, 2022 Assessment & Plan (1) Thoracic spinal stenosis: Plan: T3-T6 decompression and fusion, hardware removal T6 T8 History of Present Illness Chief Complaint: Thoracic back pain Primary Care Provider: Fransico Yost MD This is a 67-year-old male well-known to the presents with persistent thoracic back pain after failing course of nonoperative care is here for surgical invention. Allergies Allergy/AdvReac Type Severity Reaction Status Date / Time erythromycin base Allergy Severe Anaphylaxis Verified 09/02/22 09:53 Fish Containing Products Allergy Severe THROAT Verified 09/02/22 09:53 SWELLS loratadine Allergy Severe BREATHING Verified 09/02/22 09:53 DIFFICULTY shellfish derived Allergy Severe throat Verified 09/02/22 09:53 gets scratchy diphenhydramine Allergy Intermediate HIVES Verified 09/02/22 09:53 Macrolide Antibiotics Allergy Intermediate E-MYCIN=HIVES; Verified 09/02/22 09:53 "MYCINS"--JAUNDICE rofecoxib AdvReac Severe CHEST PAIN Verified 09/02/22 09:53 zolpidem AdvReac Severe NIGHTMARES Verified 09/02/22 09:53 oxycodone AdvReac Intermediate TERRIBLE Verified 09/02/22 09:53 DREAMS,DISORIENTATION Home Medications Medication Instructions Recorded Confirmed Type calcium carbonate 500 mg-vitamin 1 tab PO BID 12/05/18 09/02/22 History D3 5 mcg (200 unit) tablet (Calcium 500 + D) clopidogrel 75 mg tablet (Plavix) 75 mg PO QAM 12/05/18 09/02/22 History coenzyme Q10 100 mg capsule 100 mg PO HS 12/05/18 09/02/22 History (CoQ-10) docusate sodium 100 mg tablet 100 mg PO TID 12/05/18 09/02/22 History fluticasone propionate 50 1 spray intranasal QAM PRN Nasal 12/05/18 09/02/22 History mcg/actuation nasal Congestion spray,suspension (Flonase Allergy Relief) multivitamin 1 tab PO QAM 12/05/18 09/02/22 History nitroglycerin 0.4 mg sublingual 1 tab sublingual UD PRN Chest Pain 12/05/18 09/02/22 History tablet (Nitrostat) duloxetine 60 mg capsule,delayed 60 mg PO HS 12/06/18 09/02/22 History release sennosides 8.6 mg tablet 8.6 mg PO BID 12/06/18 09/02/22 History trazodone 50 mg tablet 25 mg PO HS 12/06/18 09/02/22 History omeprazole 20 mg capsule,delayed 20 mg PO BID 04/15/20 09/02/22 History release metformin 1,000 mg tablet 1,000 mg PO BID 07/02/20 09/02/22 History lidocaine 5 % topical ointment 1 applic topical Q6H FOOT & BACK 07/10/20 09/02/22 History PAIN mirabegron 50 mg tablet,extended 50 mg PO QAM 07/10/20 09/02/22 History release 24 hr (Myrbetriq) bisacodyl 10 mg rectal suppository 10 mg IA QAM PRN Constipation 09/24/20 09/02/22 History (Dulcolax (bisacodyl)) polyethylene glycol 3350 17 17 g PO HS 09/24/20 09/02/22 History gram/dose oral powder (Miralax) tizanidine 4 mg capsule 4 mg PO TID 09/24/20 09/02/22 History aspirin 81 mg tablet,delayed 81 mg PO HS 10/30/20 09/02/22 History release alendronate 70 mg tablet 70 mg PO WK 02/13/22 09/02/22 History bacitracin zinc 500 unit/gram 1 applic topical QAM PRN Skin 02/13/22 09/02/22 History topical ointment Irritation carvedilol 12.5 mg tablet 6.25 mg PO BID 02/13/22 09/02/22 History cholecalciferol (vitamin D3) 25 50 mcg PO QDL 02/13/22 09/02/22 History mcg (1,000 unit) capsule (Vitamin D3) clotrimazole 1 % topical cream 1 applic topical BID PRN SKIN 02/13/22 09/02/22 History IRRITATION ON CHEST cyanocobalamin (vitamin B-12) 500 1,000 mcg PO DAILY 02/13/22 09/02/22 History mcg tablet (Vitamin B-12) furosemide 40 mg tablet 40 mg PO QAM 02/13/22 09/02/22 History ibuprofen 400 mg tablet 400 mg PO Q8H PRN Pain 02/13/22 09/02/22 History lidocaine 5 % topical patch 1 patch transdermal ONAMOFFPM PRN 02/13/22 09/02/22 History Back Pain lidocaine HCl 2 % mucosal jelly 1 applic topical DIRECTED PRN 02/13/22 09/02/22 History BOWEL PROGRAM nitroglycerin 400 mcg/spray 1 spray translingual UD PRN Chest 02/13/22 09/02/22 History translingual Pain nystatin 100,000 unit/gram topical 1 applic topical BID PRN Skin 02/13/22 09/02/22 History powder Irritation ramipril 10 mg capsule 10 mg PO BID 02/13/22 09/02/22 History spironolactone 25 mg tablet 25 mg PO QAM 02/13/22 09/02/22 History baclofen 10 mg tablet 10 mg PO QID PRN MUSCLE SPASMS 02/14/22 09/02/22 History pregabalin 225 mg capsule 225 mg PO BID 02/14/22 09/02/22 History benzonatate 100 mg capsule 100 mg PO TID PRN cough #15 caps 04/22/22 09/02/22 Rx carboxymethylcellulose sodium 0.5 1 drp OPL QID 04/22/22 09/02/22 History % eye drops cetirizine 10 mg tablet (Zyrtec) 10 mg PO QAM 04/22/22 09/02/22 History citric ac 1980.6 mg-glucono 59.4 30 ml irrigation DAILY PRN 04/22/22 09/02/22 History mg-mag carb 980.4 mg/30 mL NEEDED irrig.soln (Renacidin) clobetasol 0.05 % scalp solution 1 applic topical BID PRN EAR 04/22/22 09/02/22 History DERMATITIS dantrolene 25 mg capsule 25 mg PO TID 04/22/22 09/02/22 History desonide 0.05 % topical cream 1 applic topical BID PRN SKIN 04/22/22 09/02/22 History IRRITATION ON FACE ketoconazole 2 % shampoo 1 ea topical 2XWK 04/22/22 09/02/22 History lorazepam 1 mg tablet 1 mg PO BID PRN MUSCLE SPASMS 04/22/22 04/22/22 History magnesium oxide 420 mg tablet 420 mg PO DAILY 04/22/22 09/02/22 History phenylephrine 0.25 %-pramoxine 1 1 applic IA HS PRN Hemorrhoids 04/22/22 09/02/22 History %-glycerin-wh.petrolatum rectal cream (Hemorrhoidal Cream) pitavastatin magnesium 4 mg tablet 4 mg PO HS 04/22/22 09/02/22 History sodium chloride 0.65 % nasal spray 1 spray intranasal Q2H PRN NASAL 04/22/22 09/02/22 History aerosol (Saline Nasal) DRYNESS Minie Ememez Plus 1 dose IA QAM 09/02/22 09/02/22 History hydrocodone 5 mg-acetaminophen 325 1 tab PO TID 09/02/22 09/02/22 History mg tablet semaglutide 1 mg/dose (2 mg/1.5 1 mg subcut WK 09/02/22 09/02/22 History mL) subcutaneous pen injector (Ozempic) Past Med/Surg History Medical History (Updated 09/08/22 @ 16:25 by Diya Fulton PA-C) Aortic aneurysm UNDER SURVEILLANCE BY VASCULAR (TESSIE) Aortic insufficiency mild on 05/2022 echo Aortic stenosis mild to moderate, 05/2022 echo Atrial fibrillation CAD (coronary artery disease) s/p 6 stents, most recent in 2011 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 Depression Diabetes mellitus, type 2 NIDDM 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 moderately enlarged 4.4 cm GERD (gastroesophageal reflux disease) controlled, stable per pt History of COVID-19 10/18/20>hospitalized for SBO, COVID symptoms resolved History of intestinal obstruction NO SURGERY REQUIRED History of pressure ulcer NOTHING CURRENT NOW>"NOTHING OPENED, REDNESS ONLY" Hyperlipidemia Hypertension controlled, stable per pt Morbid obesity Myocardial Infarction X4 - LAST WAS 2011 Neurogenic bladder indwelling supra-pubic catheter Neurogenic bowel see med list for bowel regimen Pacemaker MEDTRONIC; 2/2 SYMPTOMATIC BRADYCARDIA- LAST PACER CHECK/STACY 08/13/22 Paralysis PARLYSIS/PARATHESIA OF B/L LOWER EXTREMITIES FOLLOWING LOWER THORACIC INTERBODY FUSION 11/2017 Renal lesion new 1.6 cm enhancing cortical lesion suggested in the interpolar left kidney. This is highly suspicious for renal cell carcinoma, and follow-up with urology is recommended-they report monitoring CT in [address] Bran Nova with [facility] Rotator cuff tear rt Sleep apnea CPAP RECALLED>USING O2 AT 2L HS 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 Suprapubic catheter Surgical History Fusion of spine T9-T11 Removal of Hardware, T5-T11 Decompression and Fusion: 12/13/18: Grade view 1, MAC#3, ETT 8.5 at [facility] "fused from T6-S1" T9-T12 Grade 1 view, MAC 3, ETT 8 11/22/17: "...no voluntary movement in his lower extremities...no sensation noted below approx inguinal ligament bilat...to be monitored on med-surgical floor...Dr. Almaraz will start...steroid protocol..." H/O sinus surgery History of arthroscopic surgery of shoulder X2 (LEFT) 09/20/15 LMA 5 + PNB. Post-op note: "...in the PACU he was initially hypertensive with BP 170s/110s...given labetalol and hydralazine...now 140s/80s...HR remained in the 60s to 70s...SpO2 has been in the high 90s..." History of back surgery X4 History of cardiac cath X15; TOTAL OF 6 STENTS (STENT PLACED LAST 2011) History of cardiac pacemaker History of cholecystectomy History of cystoscopy History of gastric bypass GASTRIC SLEEVE PROCEDURE History of tonsillectomy and adenoidectomy History of tooth extraction History of total knee replacement B/L S/P cervical spinal fusion C5-6 limited rom S/P UPPP (uvulopalatopharyngoplasty) Status post insertion of intrathecal baclofen pump May 2020-Prometra pump at [facility] Family History Other No family history of adverse response to anesthesia Social History Smoking Status: Former smoker Tobacco Type: Cigarettes Smoking End Date: 1986; Second Hand Exposure: Yes ( A CHILD); Do You Dip or Chew Tobacco: No; Hx Alcohol Use: No Preferred Language: [place] Communication Ability: Effective Visual Impairment: No Limitations Hearing Ability: Normal Set Illustrator Required: No Beliefs That Will Affect Care: Advent Advent Beliefs: TAOISM marital status: Current Living Situation: Spouse Current 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) Vital Signs (Past 12 Hours) Vital Signs Temp Pulse Resp BP Pulse Ox O2 Del Method 10/07/22 09:16 36.5 C 70 18 123/71 92 Room Air
[2022-10-07] MEDS ORDERED: ceFAZolin 330 MG/ML 1 GM VIAL ONE (09:41)
[2022-10-07] MEDS ORDERED: BUPIVACAINE/EPINEPHRINE 0.25% 1:200,000 30 ML VIAL ONE (09:41)
[2022-10-07] MEDS ORDERED: ePHEDrine sulfate 50 MG/ML AMP IV PRN (10:47)
[2022-10-07] MEDS ORDERED: ATROPINE SULFATE 0.1 MG/ML 10ML SYR IV PRN (10:47)
[2022-10-07] MEDS ORDERED: ONDANSETRON INJ 2 MG/ML 2 ML VIAL IV PRN ×2 (10:47→15:29)
[2022-10-07] MEDS ORDERED: PROMETHAZINE HCL 12.5 MG in SODIUM CHLORIDE 0.9% 50 ML IV PRN ×2 (10:47→15:29)
[2022-10-07] MEDS ORDERED: HYDROmorphone INJ 2 MG/ML SYR/VIAL IV PRN (10:47)
[2022-10-07] MEDS ORDERED: FLOSEAL HEMOSTATIC MATRIX 5ML TOP ONE (11:33)
--- NOTE | 2022-10-07 13:21 | Operative Report ---
Post Operative Report Pre & Post Diagnosis Operation Date: 10/07/22 09:55 Pre-Op Diagnosis: Thoracic Spinal Stenosis Post-Op Diagnosis: Thoracic Spinal Stenosis I identified the patient and participated in the time-out.: Yes Procedure Operation Date: 10/07/22 09:55 Actual Procedures #1 removal of posterior instrumentation T6-T7-T8. #2 exploration of fusion T6- T8. #3 thoracic decompression with bilateral medial facetectomies and foraminotomies T3-T4, T4-T5, and T5 C6. #4 posterior spinal fusion T3-T6. #5 placement posterior segmental instrumentation T3-T7. #6 placement locally harvested morselized autograft and posterior gutters. #7 placement of infuse collagen sponge bone mass graft and posterior gutters T3-T7. Surgeon Barry Almaraz, DO Efficiency Engineer Elham Choudhary Estimated Blood Loss 500 Findings See Below The patient is 5 foot 8 inches tall weighing over 120 kg with a BMI in excess of 40. Patient's body was did contribute to significant technical difficulty with positioning and retraction at least 50% increased to the operative time. Specimens None Indications This is a 67-year-old male who presents with adjacent levels thoracic stenosis. Failing conservative course of nonoperative care is here for surgical invention. Description of Procedure Patient met with identified informed consent obtained. Patient was then taken to the operative suite underwent a patient placed in a prone position the [place] table top Montez frame. All bony prominences well-padded eyes inspected to ensure no external pressure placed upon the. This point the thoracolumbar spine was prepped and draped no sterile fashion. Sharp dissection with the ass istance of Denny Oneil form down to and exposing the lamina transverse processes of T3-T4-T5 and instrumentation at T6-T7-T8. I then removed the pedicle screws and connectors at T6-T7-T8. And then using a marquise cutter cut the marquise at the T8 level. I then performed complete decompression medial facetectomies at T5 T4 and T3 addressing severe spinal stenosis marked epidural lipomatosis facet hypertrophy. Pedicle screws were then placed in T3 T4-T5-T6 and T7. By using barrel connectors and the previous rods I connected new rods that were contoured and placed to the pre-existing rods. The barrel connectors were locked in position the rods were locked in final position. The transverse processes of T3-T4-T5 and T6 T8 burred to subcortical bleeding bone. Infuse collagen sponge bone mass graft locally harvested morselized autograft was then placed in the posterior gutters. A cross-link was locked into position. A 15 round ROME drain inserted. Incision was then closed with 1 Vicryl the fascia 2-0 Vicryl subcutaneously and 4 Monocryl for fascial closure. Steri-Strips dressings placed. Patient waken taken to PACU in stable condition. Please note Elham Choudhary was present out the entire surgeon while the patient positioning complex portions of the surgery and final skin closure. I attest to the content of the Intraoperative Record and any orders documented t herein. Any exceptions are noted below.
--- NOTE | 2022-10-07 13:35 | Fluoroscopy Report ---
FL thoracic spine 2V CLINICAL HISTORY: T3-T6 DECOMPRESSION AND FUSION HW REMOVAL T6-T8 COMPARISON STUDY: Thoracic spine CT July 23, 2022. FLUOROSCOPY TIME: 33 seconds. FLUOROSCOPIC IMAGES: 4 FINDINGS: Exact localization is not possible given partial visualization of the spine. Multilevel tho racic spine decompression and fusion is noted. Postoperative findings within the lower cervical spine are incidentally noted. Visualized portions of the hardware are intact. IMPRESSION: Fluoroscopy provided during thoracic spine decompression and fusion. ACT 112: Negative or not required by law. Electronically signed by: Meir Vasquez M.D. 10/07/2022 1:33 PM
[2022-10-07] MEDS: fentaNYL citrate 100 MCG/2 ML VIAL IV PRN ×2 (14:25→14:43)
[2022-10-07] MEDS ORDERED: NALOXONE HCL 0.4 MG/1 ML VIAL/CARP IV PRN (15:29)
[2022-10-07] MEDS ORDERED: ACETAMINOPHEN 500 MG TAB PO PRN (15:29)
[2022-10-07] MEDS ORDERED: NON-FORMULARY MEDICATION (Semaglutide [Ozempic] 1 mg/dose (2 mg/1.5 mL) Pen Injector) SQ SCH (15:29)
[2022-10-07] MEDS ORDERED: NYSTATIN POWDER 15GM BTL EXT PRN (15:29)
[2022-10-07] MEDS ORDERED: BACITRACIN ZINC TOP PRN (15:29)
[2022-10-07] MEDS ORDERED: ALUMINUM/MAGNESIUM SUSP 30 ML UDC PO PRN (15:29)
[2022-10-07] MEDS ORDERED: FAMOTIDINE 20 MG TAB PO PRN (15:29)
[2022-10-07] MEDS ORDERED: LIDOCAINE 5% OINT 30 GM TUBE TOP SCH (15:29)
[2022-10-07] MEDS ORDERED: CLOBETASOL 0.05% TOP PRN (15:29)
[2022-10-07] MEDS ORDERED: BENZONATATE 100 MG CAPSULE PO PRN (15:29)
[2022-10-07] MEDS ORDERED: NITROGLYCERIN 60 SPRAYS/4.9 GM SPRAY SL PRN (15:29)
[2022-10-07] MEDS ORDERED: CLOTRIMAZOLE 1% CR 15 GM TUBE TOP PRN (15:29)
[2022-10-07] MEDS ORDERED: PHENYLEPH PRAMOXIN GLYCR W PET PR PRN (15:29)
[2022-10-07] MEDS ORDERED: SOD PHOSPHATE/SOD BIPHOSPHATE ENEMA 132 ML BTL PR PRN (15:29)
[2022-10-07] MEDS ORDERED: DO NOT ADMINISTER PNEUMOCOCCAL VACCINE PRN (15:29)
[2022-10-07] MEDS ORDERED: ACETAMINOPHEN 1,000 MG/100 ML VIAL IV PRN (15:29)
[2022-10-07] MEDS ORDERED: LORazepam 0.5 MG in SYRINGE 0 ML IV PRN (15:29)
[2022-10-07] MEDS ORDERED: DESONIDE CR 15 GM TUBE EXT PRN (15:29)
[2022-10-07] MEDS ORDERED: METOCLOPRAMIDE HCL INJ 5 MG/ML 2 ML VIAL IV PRN (15:29)
[2022-10-07] MEDS ORDERED: DO NOT ADMINISTER FLU VACCINE PRN (15:29)
[2022-10-07] MEDS ORDERED: LIDOCAINE 2% JELLY 5 ML TUBE EXT PRN (15:29)
[2022-10-07] MEDS ORDERED: CITRIC AC GLUCONOLACT MAG CARB IR PRN (15:29)
[2022-10-07] MEDS ORDERED: MAGNESIUM HYDROXIDE SUSP 30 ML UDC PO PRN (15:29)
[2022-10-07] MEDS ORDERED: hydrOXYzine HCl 25 MG TAB PO PRN (15:29)
[2022-10-07] MEDS ORDERED: NITROGLYCERIN SL 0.4 MG/TAB TAB SL PRN (15:29)
[2022-10-07] MEDS ORDERED: bisacodyL 10 MG SUPP PR PRN ×2 (15:29)
[2022-10-07] MEDS ORDERED: NON-FORMULARY MEDICATION (Ketoconazole 2 % Shampoo) TOP SCH (15:29)
[2022-10-07] MEDS ORDERED: diphenhydrAMINE Capsule 25 MG CAP PO PRN (15:29)
[2022-10-07] MEDS ORDERED: ONDANSETRON 4 MG OD TAB PO PRN (15:29)
[2022-10-07] MEDS: ALLERGY Noted to ORDERED Medication SCH ×3 (15:34→16:18)
--- NOTE | 2022-10-07 16:00 | Hospitalist Consultation ---
Date of Consultation October 07, 2022 Assessment & Plan (1) Thoracic spinal stenosis: Thoracic spinal stenosis, hx paraplegia S/p operative intervention 10/07/2022 #1 removal of posterior instrumentation T6-T7-T8. #2 exploration of fusion T6- T8. #3 thoracic decompression with bilateral medial facetectomies and foraminotomies T3-T4, T4-T5, and T5 C6. #4 posterior spinal fusion T3-T6. #5 placement posterior segmental instrumentation T3-T7. #6 placement locally harvested morselized autograft and posterior gutters. #7 placement of infuse collagen sponge bone mass graft and posterior gutters T3-T7. Management including DVT prophylaxis/activity/pain control per primary team Sensation intact in upper extremities, strength is intact in upper extremities. Patient has loss of sensation, bladder function, and strength below the umbilicus. - Hx of autonomic dysreflexia. Doing well at time of assessment. Continue serial clinical exams continue baclofen for spasm May resume pregabalin for neuropathic pain CAD with history of multiple PCI History of multiple ZOFIA placement including PCI of the LAD, unstable angina 2002 s/p PCI to RCA, and catheterization August 2012 with PCI to LAD Negative dobutamine stress echo/EKG prior to surgical intervention Recommend resuming antiplatelet agents at 24 hours. Last PCI was 2011. Recommend resuming at least monotherapy with ASA at 24 hours. Given extensive cardiac history would resume DAPT as soon as OK bleeding risk per surgical team Continue amlodipine, HCTZ, metoprolol Resume ramipril tomorrow if creatinine normal, may resume today if renal function stable and hypertensive A. fib with history of bradycardia most recent EKGs atrially paced, Pacer operating normally, last checked by cardiology 2021 Not on anticoagulation as outpatient, follows with cardiology Continue metoprolol as noted Adequately rate controlled at bedside assessment Hypertension Continue antihypertensives as above Neurogenic bladder secondary to spinal cord injury -Suprapubic was exchanged on October 01 Draining clear yellow urine assessment No signs of surrounding infection Continue to monitor AAA No signs of worsening / expansion. Continue outpatient follow-up. 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 Hold home antilipemics Glucose checks AC/at bedtime, will add weight-based SSI - Weight based SSI Goal BSG 822909 BMP daily Aortic insufficiency Echo as noted, no acute interventions at this time DENICE - CPAP qHS - waiting on recall list for new machine at home, follow-up with PCP to help facilitate (2) Spastic paraparesis: (3) Paralysis: (4) DENICE (obstructive sleep apnea): (5) CAD (coronary artery disease): (6) Atrial fibrillation: (7) Aortic insufficiency: (8) Aortic aneurysm: (9) Depression: (10) Hyperlipidemia: (11) Neurogenic bladder: (12) Pacemaker: History of Present Illness Attending Physician: Barry Almaraz, History of Present Illness Chuck is a 67-year-old male with a past medical history of chronic back pain/spasticity, untreated DENICE, type II DM, iron deficiency, obesity s/p gastric sleeve 01/2014, SBO, AAA, dual-chamber pacemaker for symptomatic bradycardia placed 2005 with generator exchange 2013, CAD s/p NSTEMI 1996, PCI of the LAD, unstable angina 2002 s/p PCI to RCA, and catheterization August 2012 with PCI to LAD, paraplegia T10 with history of autonomic dysreflexia, GERD, suprapubic catheter placement, Preoperative cardiac evaluation was performed by [facility] cardiology. Did have a dobutamine stress echo with EF 60-64%, normal LV SF, and no signs of inducible ischemia either on stress echo or stress EKG Patient is seen postoperatively with his at bedside. He is somnolent, but awakens easily and answers questions appropriately. Reports he has some pain in his back at his surgical site, otherwise denies pain. He does have right-sided chest/rib discomfort greatly worsened on palpation. Denies chest pressure/left- sided chest pain. Denies shortness of breath. Denies fever/chills/sweats. Paraplegia with complete numbness below the umbilicus. Feels sensation in his upper extremities is normal and intact to soft touch bilaterally. Denies shooting pains in his arms at time of assessment reviewed medications with his at bedside who brought his medication list. Did not take his Lasix, spironolactone, or [place] and did take his metoprolol as directed. His reports that he is easily constipated has history of small bowel obstructions, she would like to bring in his ememez tomorrow to use. Discussed okay to bring it in, can verify with pharmacy tomorrow. Chuck does have a history of cardiac stents, last stent was placed in 2011. Plavix was held preoperatively for 1 week, was instructed to resume aspirin day after surgery with reassessment for Plavix. Medical History: Reviewed Medications: Reviewed Surgical History: Reviewed Allergies: Reviewed Social History: Reviewed Code Status: Full code Allergies Allergy/AdvReac Type Severity Reaction Status Date / Time erythromycin base Allergy Severe Anaphylaxis Verified 10/07/22 09:38 Fish Containing Products Allergy Severe THROAT Verified 10/07/22 09:38 SWELLS loratadine Allergy Severe BREATHING Verified 10/07/22 09:38 DIFFICULTY shellfish derived Allergy Severe throat Verified 10/07/22 09:38 gets scratchy diphenhydramine Allergy Intermediate HIVES Verified 10/07/22 09:38 Macrolide Antibiotics Allergy Intermediate E-MYCIN=HIVES; Verified 10/07/22 09:38 "MYCINS"--JAUNDICE rofecoxib AdvReac Severe CHEST PAIN Verified 10/07/22 09:38 zolpidem AdvReac Severe NIGHTMARES Verified 10/07/22 09:38 oxycodone AdvReac Intermediate TERRIBLE Verified 10/07/22 09:38 DREAMS,DISORIENTATION Home Medications Medication Instructions Recorded Confirmed Type calcium carbonate 500 mg-vitamin 1 tab PO BID 12/05/18 10/07/22 History D3 5 mcg (200 unit) tablet (Calcium 500 + D) clopidogrel 75 mg tablet (Plavix) 75 mg PO QAM 12/05/18 10/07/22 History coenzyme Q10 100 mg capsule 100 mg PO HS 12/05/18 10/07/22 History (CoQ-10) docusate sodium 100 mg tablet 100 mg PO TID 12/05/18 10/07/22 History fluticasone propionate 50 1 spray intranasal QAM PRN Nasal 12/05/18 10/07/22 History mcg/actuation nasal Congestion spray,suspension (Flonase Allergy Relief) multivitamin 1 tab PO QAM 12/05/18 10/07/22 History nitroglycerin 0.4 mg sublingual 1 tab sublingual UD PRN Chest Pain 12/05/18 10/07/22 History tablet (Nitrostat) duloxetine 60 mg capsule,delayed 60 mg PO HS 12/06/18 10/07/22 History release sennosides 8.6 mg tablet 8.6 mg PO BID 12/06/18 10/07/22 History trazodone 50 mg tablet 25 mg PO HS 12/06/18 10/07/22 History omeprazole 20 mg capsule,delayed 20 mg PO BID 04/15/20 10/07/22 History release metformin 1,000 mg tablet 1,000 mg PO BID 07/02/20 10/07/22 History lidocaine 5 % topical ointment 1 applic topical Q6H FOOT & BACK 07/10/20 10/07/22 History PAIN mirabegron 50 mg tablet,extended 50 mg PO QAM 07/10/20 10/07/22 History release 24 hr (Myrbetriq) bisacodyl 10 mg rectal suppository 10 mg AK QAM PRN Constipation 09/24/2005/22 History (Dulcolax (bisacodyl)) polyethylene glycol 3350 17 17 g PO HS 09/24/20 10/07/22 History gram/dose oral powder (Miralax) tizanidine 4 mg capsule 4 mg PO TID 09/24/20 10/07/22 History aspirin 81 mg tablet,delayed 81 mg PO HS 10/30/20 10/07/22 History release alendronate 70 mg tablet 70 mg PO WK 02/13/22 10/07/22 History bacitracin zinc 500 unit/gram 1 applic topical QAM PRN Skin 02/13/22 10/07/22 History topical ointment Irritation carvedilol 12.5 mg tablet 6.25 mg PO BID 02/13/22 10/07/22 History cholecalciferol (vitamin D3) 25 50 mcg PO QDL 02/13/22 10/07/22 History mcg (1,000 unit) capsule (Vitamin D3) clotrimazole 1 % topical cream 1 applic topical BID PRN SKIN 02/13/22 10/07/22 History IRRITATION ON CHEST cyanocobalamin (vitamin B-12) 500 1,000 mcg PO DAILY 02/13/22 10/07/22 History mcg tablet (Vitamin B-12) furosemide 40 mg tablet 40 mg PO QAM 02/13/22 10/07/22 History ibuprofen 400 mg tablet 400 mg PO Q8H PRN Pain 02/13/22 10/07/22 History lidocaine 5 % topical patch 1 patch transdermal ONAMOFFPM PRN 02/13/22 10/07/22 History Back Pain lidocaine HCl 2 % mucosal jelly 1 applic topical DIRECTED PRN 02/13/22 10/07/22 History BOWEL PROGRAM nitroglycerin 400 mcg/spray 1 spray translingual UD PRN Chest 02/13/22 10/07/22 History translingual Pain nystatin 100,000 unit/gram topical 1 applic topical BID PRN Skin 02/13/22 10/07/22 History powder Irritation ramipril 10 mg capsule 10 mg PO BID 02/13/22 10/07/22 History spironolactone 25 mg tablet 25 mg PO QAM 02/13/22 10/07/22 History baclofen 10 mg tablet 10 mg PO QID PRN MUSCLE SPASMS 02/14/22 10/07/22 History pregabalin 225 mg capsule 225 mg PO BID 02/14/22 10/07/22 History benzonatate 100 mg capsule 100 mg PO TID PRN cough #15 caps 04/22/22 10/07/22 Rx carboxymethylcellulose sodium 0.5 1 drp OPL QID 04/22/22 10/07/22 History % eye drops cetirizine 10 mg tablet (Zyrtec) 10 mg PO QAM 04/22/22 10/07/22 History citric ac 1980.6 mg-glucono 59.4 30 ml irrigation DAILY PRN 04/22/22 10/07/22 History mg-mag carb 980.4 mg/30 mL NEEDED irrig.soln (Renacidin) clobetasol 0.05 % scalp solution 1 applic topical BID PRN EAR 04/22/22 10/07/22 History DERMATITIS dantrolene 25 mg capsule 25 mg PO TID 04/22/22 10/07/22 History desonide 0.05 % topical cream 1 applic topical BID PRN SKIN 04/22/22 10/07/22 History IRRITATION ON FACE ketoconazole 2 % shampoo 1 ea topical 2XWK 04/22/22 10/07/22 History lorazepam 1 mg tablet 1 mg PO BID PRN MUSCLE SPASMS 04/22/22 10/07/22 History magnesium oxide 420 mg tablet 420 mg PO DAILY 04/22/22 10/07/22 History phenylephrine 0.25 %-pramoxine 1 1 applic AK HS PRN Hemorrhoids 04/22/22 10/07/22 History %-glycerin-wh.petrolatum rectal cream (Hemorrhoidal Cream) pitavastatin magnesium 4 mg tablet 4 mg PO HS 04/22/22 10/07/22 History sodium chloride 0.65 % nasal spray 1 spray intranasal Q2H PRN NASAL 04/22/22 10/07/22 History aerosol (Saline Nasal) DRYNESS Minie Ememez Plus 1 dose AK QAM 09/02/22 10/07/22 History hydrocodone 5 mg-acetaminophen 325 1 tab PO TID 09/02/22 10/07/22 History mg tablet semaglutide 1 mg/dose (2 mg/1.5 1 mg subcut WK 09/02/22 10/07/22 History mL) subcutaneous pen injector (Ozempic) Patient History Medical History Aortic aneurysm UNDER SURVEILLANCE BY VASCULAR (TESSIE) Aortic insufficiency mild on 05/2022 echo Aortic stenosis mild to moderate, 05/2022 echo Atrial fibrillation CAD (coronary artery disease) s/p 6 stents, most recent in 2011 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 Depression Diabetes mellitus, type 2 NIDDM 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 moderately enlarged 4.4 cm GERD (gastroesophageal reflux disease) controlled, stable per pt History of COVID-19 10/18/20>hospitalized for SBO, COVID symptoms resolved History of intestinal obstruction NO SURGERY REQUIRED History of pressure ulcer NOTHING CURRENT NOW>"NOTHING OPENED, REDNESS ONLY" Hyperlipidemia Hypertension controlled, stable per pt Morbid obesity Myocardial Infarction X4 - LAST WAS 2011 Neurogenic bladder indwelling supra-pubic catheter Neurogenic bowel see med list for bowel regimen Pacemaker MEDTRONIC; 2/2 SYMPTOMATIC BRADYCARDIA- LAST PACER CHECK/STACY 08/13/22 Paralysis PARLYSIS/PARATHESIA OF B/L LOWER EXTREMITIES FOLLOWING LOWER THORACIC INTERBODY FUSION 11/2017 Renal lesion new 1.6 cm enhancing cortical lesion suggested in the interpolar left kidney. This is highly suspicious for renal cell carcinoma, and follow-up with urology is recommended-they report monitoring CT in [address] Bran Nova with [facility] Rotator cuff tear rt Sleep apnea CPAP RECALLED>USING O2 AT 2L HS 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 Suprapubic catheter Surgical History Fusion of spine T9-T11 Removal of Hardware, T5-T11 Decompression and Fusion: 12/13/18: Grade view 1, MAC#3, ETT 8.5 at [facility] "fused from T6-S1" T9-T12 Grade 1 view, MAC 3, ETT 8 11/22/17: "...no voluntary movement in his lower extremities...no sensation noted below approx inguinal ligament bilat...to be monitored on med-surgical floor...Dr. Almaraz will start...steroid protocol..." H/O sinus surgery History of arthroscopic surgery of shoulder X2 (LEFT) 09/20/15 LMA 5 + PNB. Post-op note: "...in the PACU he was initially hypertensive with BP 170s/110s...given labetalol and hydralazine...now 140s/80s...HR remained in the 60s to 70s...SpO2 has been in the high 90s..." History of back surgery X4 History of cardiac cath X15; TOTAL OF 6 STENTS (STENT PLACED LAST 2011) History of cardiac pacemaker History of cholecystectomy History of cystoscopy History of gastric bypass GASTRIC SLEEVE PROCEDURE History of tonsillectomy and adenoidectomy History of tooth extraction History of total knee replacement B/L S/P cervical spinal fusion C5-6 limited rom S/P UPPP (uvulopalatopharyngoplasty) Status post insertion of intrathecal baclofen pump May 2020-Prometra pump at [facility] Family History Other No family history of adverse response to anesthesia Social History Smoking Status: Former smoker Tobacco Type: Cigarettes Smoking End Date: 1986; Second Hand Exposure: Yes ( A CHILD); Do You Dip or Chew Tobacco: No; Hx Alcohol Use: No Preferred Language: Uzbek Communication Ability: Effective Visual Impairment: No Limitations Hearing Ability: Normal Wind Up Worker Required: No Beliefs That Will Affect Care: Nondenominational Nondenominational Beliefs: GNOSTICIST marital status: Current Living Situation: Spouse Current 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 Oriented to name, month, and place HEENT: Atraumatic, normocephalic. Pulm: Distant, grossly clear withou wheezes or rales. Symmetrical chest rise. No increase in work of breathing. No respiratory distress. Cardiac: RRR. No JVD Abdominal: Nontender, nondistended, soft. BS present. Neuro/extremities: Moves upper extremities equally, 4/5 strength which improves with alertness and effort. No sensation to soft touch in feet, thighs bilaterally with transition point just under umbilicus.. Hip flexion, lower extremity strength absent bilaterally. Results & Data Results & Data ([facility]) Vital Signs (Past 12 Hours) Vital Signs Temp Pulse Pulse Pulse Resp BP BP 10/07/22 15:29 36.6 C 81 16 117/79 10/07/22 15:15 85 12 125/71 10/07/22 15:05 36.3 C L 83 14 111/74 10/07/22 14:55 86 12 139/96 10/07/22 14:45 83 12 101/81 10/07/22 14:35 90 12 117/68 10/07/22 14:21 83 10/07/22 14:25 85 12 119/77 10/07/22 14:15 91 H 12 111/62 10/07/22 14:05 92 H 12 117/76 10/07/22 13:55 100 H 12 123/88 10/07/22 13:49 36.2 C L 94 H 16 117/79 10/07/22 09:16 36.5 C 70 18 123/71 Pulse Ox O2 Del Method O2 Flow Rate 10/07/22 15:29 95 Room Air 10/07/22 15:15 94 Nasal Cannula 3 10/07/22 15:05 95 Nasal Cannula 3 10/07/22 14:55 94 Nasal Cannula 3 10/07/22 14:45 94 Oxymask 5 10/07/22 14:35 94 Oxymask 5 10/07/22 14:21 10/07/22 14:25 95 Oxymask 5 10/07/22 14:15 97 Oxymask 7 12/07/22 14:05 99 Oxymask 10 10/07/22 13:55 93 Oxymask 10 10/07/22 13:49 96 Oxymask 10 10/07/22 09:16 92 Room Air PG Care Time/CCT Total # of Minutes Spent Total Time Spent with Patient: Total time spent is greater than 50% in coordination of care (as documented) at patient's floor/unit and/or counseling patient: Coding Level of Care Code 38679 Inpt Consult Level 4 Diagnoses Thoracic spinal stenosis M48.04 Spastic paraparesis Paralysis G83.9 DENICE (obstructive sleep apnea) G47.33 CAD (coronary artery disease) I25.10 Atrial fibrillation I48.91 Aortic insufficiency I35.1 Aortic aneurysm I71.9 Depression F32.9 Hyperlipidemia E78.5 Hyperlipidemia type: unspecified Neurogenic bladder N31.9 Pacemaker Z95.0 (1) Hyperlipidemia Hyperlipidemia type: unspecified Qualified Code(s): E78.5 - Hyperlipidemia, unspecified
[2022-10-07] MEDS: SODIUM CHLORIDE 0.9% 1000ML 1,000 ML IV SCH ×2 (16:19→22:29)
[2022-10-07] MEDS ORDERED: LIDOCAINE 5% 1 PATCH TD PRN (16:41)
[2022-10-07] MEDS: DOCUSATE SODIUM 100 MG CAP PO SCH ×2 (17:04→20:56)
[2022-10-07] MEDS: tiZANidine HCL 4 MG TABLET PO SCH ×2 (17:04→20:57)
[2022-10-07] MEDS: DANTROLENE SODIUM 25 MG CAP PO SCH ×2 (17:05→20:57)
[2022-10-07] MEDS ORDERED: GLUCOSE 40% GEL 15 GM TUBE PO PRN (17:15)
[2022-10-07] MEDS ORDERED: GLUCAGON FOR INJ 1 MG VIAL IM PRN (17:15)
[2022-10-07] MEDS ORDERED: CARBOHYDRATES FOR HYPOGLYCEMIA PO PRN (17:15)
[2022-10-07] MEDS ORDERED: DEXTROSE 50% 50 ML SYRINGE IV PRN (17:15)
[2022-10-07] MEDS ORDERED: GLUCOSE 10 TAB/TUBE PO PRN (17:15)
[2022-10-07] MEDS: ceFAZolin 2000MG 2,000 MG/15 ML SYR IV SCH (17:32)
[2022-10-07] MEDS: INSULIN ASPART PER UNIT SC SCH ×2 (18:00→20:55)
[2022-10-07] MEDS: PREGABALIN 75 MG CAP PO SCH (20:55)
[2022-10-07] MEDS: PANTOprazole 40 MG TAB PO SCH (20:55)
[2022-10-07] MEDS: carvediloL 6.25 MG TAB PO SCH (20:56)
[2022-10-07] MEDS: SENNA 8.6 MG TAB PO SCH (20:56)
[2022-10-07] MEDS: DULoxetine HCL 60 MG CAP PO SCH (20:56)
[2022-10-07] MEDS: ASPIRIN 81 MG ECTAB PO SCH (20:57)
[2022-10-07] MEDS: traZODone HCL 50 MG TAB PO SCH (20:58)
[2022-10-07] MEDS ORDERED: NON-FORMULARY MEDICATION (Coenzyme Q10 [Coq-10] 100 mg Capsule) PO SCH (21:00)
[2022-10-07] MEDS ORDERED: DOCUSATE SODIUM/SENNA 50/8.6MG TAB PO SCH (21:00)
[2022-10-07] MEDS: POLYETHYLENE (MIRALAX) 17 GM PACK PO SCH (21:04)
[2022-10-07] MEDS: HYDROCODONE/ACETAMOPHEN 5/325MG TAB PO PRN (21:20)
[2022-10-08] MEDS: ceFAZolin 2000MG 2,000 MG/15 ML SYR IV SCH (03:24)
[2022-10-08] MEDS: HYDROCODONE/ACETAMOPHEN 5/325MG TAB PO PRN ×4 (03:34→21:38)
[2022-10-08] MEDS: SODIUM CHLORIDE 0.9% 1000ML 1,000 ML IV SCH (05:18)
[2022-10-08] MEDS ORDERED: POLYETHYLENE (MIRALAX) 17 GM PACK PO SCH (06:00)
[2022-10-08] MEDS: traMADol HCL 50 MG TABLET PO PRN (06:02)
[2022-10-08] MEDS: BACLOFEN 10 MG TAB PO PRN (06:50)
[2022-10-08 08:08] LABS: Basophils # (auto) 0.02 K/uL (0-0.2); Basophils % (auto) 0.2 %; Eosinophils # (auto) 0.04 K/uL (0-0.50); Eosinophils % (auto) 0.3 %; Hematocrit (blood only) 32.6 % (40.1-51.0); Hemoglobin 10.7 g/dl (14.0-18.0); Immature Granulocytes # (auto) 0.04 K/uL (0.00-0.02); Immature Granulocytes % (auto) 0.3 %; Lymphocytes # (auto) 1.64 K/uL (1.2-3.4); Mean Corpuscular Hemoglobin 30.1 pg (25.0-34.0); Mean Corpuscular Hgb Conc 32.8 g/dL (32.0-36.0); Mean Corpuscular Volume 91.6 fL (80.0-100.0); Mean Platelet Volume 10.7 fL (9.4-12.4); Monocytes # (auto) 1.16 K/uL (0.24-0.82); Monocytes % (auto) 9.9 %; Neutrophils # (auto) 8.83 K/uL (1.4-6.5); Neutrophils % (auto) 75.3 %; Platelet Count 227 K/uL (130-400); RDW Coefficient of Variation 15.9 % (11.5-14.5); Red Blood Count 3.56 M/uL (4.63-6.08); White Blood Count 11.73 K/ul (4.8-10.8)
[2022-10-08] MEDS: PANTOprazole 40 MG TAB PO SCH ×2 (08:15→21:08)
[2022-10-08] MEDS: CYANOCOBALAMIN (B-12) 500 MCG TABLET PO SCH (08:15)
[2022-10-08] MEDS: carvediloL 6.25 MG TAB PO SCH ×2 (08:15→21:09)
[2022-10-08] MEDS: CALCIUM 600MG + VIT D 400 IU TAB PO SCH (08:15)
[2022-10-08] MEDS: CHOLECALCIFEROL 1,000 UNITS 25 MCG TAB PO SCH (08:16)
[2022-10-08] MEDS: MULTIVITAMIN TAB PO SCH (08:16)
[2022-10-08] MEDS: CETIRIZINE HCL 10 MG TABLET PO SCH (08:16)
[2022-10-08] MEDS: SPIRONOLACTONE 25 MG TAB PO SCH (08:16)
[2022-10-08] MEDS: FUROSEMIDE 40 MG TAB PO SCH (08:16)
[2022-10-08] MEDS: MAGNESIUM OXIDE 400 MG TAB PO SCH (08:16)
[2022-10-08] MEDS: DANTROLENE SODIUM 25 MG CAP PO SCH ×3 (08:18→21:09)
[2022-10-08] MEDS: dexAMETHasone 6 MG in SYRINGE 0 ML IV SCH (08:18)
[2022-10-08] MEDS: ENALAPRIL MALEATE 10 MG TAB PO SCH (08:19)
[2022-10-08] MEDS: DOCUSATE SODIUM 100 MG CAP PO SCH ×3 (08:19→21:08)
[2022-10-08] MEDS: SENNA 8.6 MG TAB PO SCH ×2 (08:20→21:08)
[2022-10-08] MEDS: MIRABEGRON ER 25 MG TAB PO SCH (08:20)
[2022-10-08] MEDS: tiZANidine HCL 4 MG TABLET PO SCH ×3 (08:21→21:09)
[2022-10-08] MEDS: PREGABALIN 75 MG CAP PO SCH ×2 (08:30→21:07)
[2022-10-08 08:32] LABS: BUN Creatinine Ratio 19.6 (10-20); Calcium 8.1 mg/dl (8.5-10.1); Creatinine Clr Calc Pharmacy 177.3 ml/min; Est GFR (African American) 128.9 ml/min; Est GFR (Non-African American) 111.2 ml/min; Potassium 4.5 mmol/L (3.5-5.1)
[2022-10-08] MEDS: INSULIN ASPART PER UNIT SC SCH ×4 (09:50→21:00)
[2022-10-08] MEDS: HYDROmorphone INJ 0.5 MG/0.5 ML SYR IV PRN (10:17)
--- NOTE | 2022-10-08 11:13 | Orthopedic Progress Note ---
Date of Service October 08, 2022 Assessment & Plan (1) Thoracic spinal stenosis: Plan: At this time we will have him assessed with OT and PT. He be a very good candidate for rehab. Transfer to chair is 1 ready. Admission and Anticipated Discharge Date Admission Date: October 07, 2022 Subjective Patient's pain is controlled. Physical Exam Physical Exam: On exam he is simply bed. He has good strength testing to the upper extremities. He has no shoulder pain. Results & Data ([facility]) Vital Signs (Past 12 Hours) Vital Signs Temp Pulse Resp BP Pulse Ox O2 Del Method O2 Flow Rate 10/08/22 07:26 36.5 C 72 18 126/67 96 Nasal Cannula 3 10/08/22 03:00 36.2 C L 72 18 119/75 98 Nasal Cannula 3
[2022-10-08] MEDS: FLUTICASONE PROPIONATE NA SPR 16 GM BTL PRN (15:48)
--- NOTE | 2022-10-08 17:39 | Hospitalist Progress Note ---
Date of Service October 08, 2022 Assessment & Plan (1) Thoracic spinal stenosis: Plan: Thoracic spinal stenosis, hx paraplegia S/p operative intervention 10/07/2022 #1 removal of posterior instrumentation T6-T7-T8. #2 exploration of fusion T6- T8. #3 thoracic decompression with bilateral medial facetectomies and foraminotomies T3-T4, T4-T5, and T5 C6. #4 posterior spinal fusion T3-T6. #5 placement posterior segmental instrumentation T3-T7. #6 placement locally harvested morselized autograft and posterior gutters. #7 placement of infuse collagen sponge bone mass graft and posterior gutters T3-T7. Management including DVT prophylaxis/activity/pain control per primary team Sensation intact in upper extremities, strength is intact in upper extremities. Patient has loss of sensation, bladder function, and strength below the umbilicus. - Hx of autonomic dysreflexia. Doing well at time of assessment. Continue serial clinical exams continue baclofen for spasm Continue pregabalin for neuropathic pain (2) Spastic paraparesis: (3) Paralysis: (4) DENICE (obstructive sleep apnea): Plan: - CPAP qHS - waiting on recall list for new machine at home, follow-up with PCP to help facilitate (5) CAD (coronary artery disease): Plan: History of multiple ZOFIA placement including PCI of the LAD, unstable angina 2002 s/p PCI to RCA, and catheterization August 2012 with PCI to LAD Negative dobutamine stress echo/EKG prior to surgical intervention Recommend resuming antiplatelet agents at 24 hours. Last PCI was 2011. Recommend resuming at least monotherapy with ASA at 24 hours. Given extensive cardiac history would resume DAPT as soon as OK bleeding risk per surgical team Continue amlodipine, HCTZ, metoprolol Ramipril switched to enalapril per hospital formulary (6) Atrial fibrillation: Plan: most recent EKGs atrially paced, Pacer operating normally, last checked by cardiology 2021 Not on anticoagulation as outpatient, follows with cardiology Continue metoprolol as noted Adequately rate controlled at bedside assessment (7) Aortic insufficiency: Plan: Echo as noted, no acute interventions at this time (8) Aortic aneurysm: Plan: No signs of worsening / expansion. Continue outpatient follow-up. 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 Glucose checks AC/at bedtime, will add weight-based SSI - Weight based SSI Goal BSG 448087 BMP daily (14) GERD (gastroesophageal reflux disease): Plan: Convert omeprazole to Protonix while inpatient (15) Hypertension: Plan: Continue antihypertensives as above Plan VTE Prophylaxis - per primary orthopedic service Diet - T2DM Disposition - per primary orthopedics team, no acute medical needs requiring ongoing inpatient care Admission and Anticipated Discharge Date Admission Date: October 07, 2022 Subjective Main concern is his thoracic back pain since his operation. Not had norco since his operation. Also not yet had a bowel movement (relatively recently he was admitted here in January with small bowel obstruction). Just had milk of magnesia when seen. Vital signs stable. Post operative labs unremarkable. Mild hypoxia earlier in the day but improves whenever he takes deep breaths which he finds hard given the operation site. Review of Systems Review of Systems: All systems reviewed & are unremarkable except as noted in Subjective Physical Exam Constitutional: WD/WN, vitals as above Respiratory: normal respiratory effort, lungs clear to auscultation Cardiovascular: Rate/Rhythm: regular rate and regular rhythm Heart Sounds: + murmur (throughout, loudest systolic LUSB) Gastrointestinal (Abdomen): normal bowel sounds, soft, nontender, no hepatosplenomegaly Skin: no rashes, warm and dry Psychiatric: A+Ox3, euthymic affect Results & Data Results & Data ([facility]) Vital Signs (Past 12 Hours) Vital Signs Temp Pulse Resp BP Pulse Ox O2 Del Method O2 Flow Rate 10/08/22 16:15 95 Nasal Cannula 2 10/08/22 15:22 36.3 C L 84 18 101/63 90 Room Air 10/08/22 13:09 36.9 C 72 16 113/69 94 Room Air 10/08/22 12:44 36.9 C 72 16 113/69 94 Room Air 10/08/22 12:27 36.6 C 69 18 100/67 92 Room Air 10/08/22 07:26 36.5 C 72 18 126/67 96 Nasal Cannula 3 PG Care Time/CCT Total # of Minutes Spent Total Time Spent with Patient: Total time spent is greater than 50% in coordination of care (as documented) at patient's floor/unit and/or counseling patient: Coding Level of Care Code 14994 Subseq Hosp Care Lvl 2 Diagnoses Thoracic spinal stenosis M48.04 Spastic paraparesis Paralysis G83.9 DENICE (obstructive sleep apnea) G47.33 CAD (coronary artery disease) I25.10 Atrial fibrillation I48.91 Aortic insufficiency I35.1 Aortic aneurysm I71.9 Depression F32.9 Hyperlipidemia E78.5 Hyperlipidemia type: unspecified Neurogenic bladder N31.9 Pacemaker Z95.0 Type 2 diabetes mellitus E11.9 GERD (gastroesophageal reflux disease) K21.9 Hypertension I10 Hypertension type: essential hypertension (1) Hyperlipidemia Hyperlipidemia type: unspecified Qualified Code(s): E78.5 - Hyperlipidemia, unspecified (2) Hypertension Hypertension type: essential hypertension Qualified Code(s): I10 - Essential (primary) hypertension
[2022-10-08] MEDS: DULoxetine HCL 60 MG CAP PO SCH (21:08)
[2022-10-08] MEDS: traZODone HCL 50 MG TAB PO SCH (21:08)
[2022-10-08] MEDS: ASPIRIN 81 MG ECTAB PO SCH (21:09)
[2022-10-08] MEDS: POLYETHYLENE (MIRALAX) 17 GM PACK PO SCH (21:10)
--- NOTE | 2022-10-08 21:29 | Electrocardiogram Report ---
Test Reason : Blood Pressure : / mmHG Vent. Rate : 083 BPM Atrial Rate : 083 BPM P-R Int : 164 ms QRS Dur : 098 ms QT Int : 392 ms P-R-T Axes : 055 -16 016 degrees QTc Int : 460 ms Normal sinus rhythm Inferior infarct , age undetermined Abnormal ECG When compared with ECG of 22-APR-2022 16:44, Sinus rhythm has replaced Electronic atrial pacemaker Inferior infarct is now Present Confirmed by Pedro Burks ([id number]) on 10/08/2022 9:29:10 PM Referred By: Barry Almaraz Confirmed By:Pedro Burks
[2022-10-09] MEDS: HYDROCODONE/ACETAMOPHEN 5/325MG TAB PO PRN ×4 (04:10→22:24)
[2022-10-09] MEDS ORDERED: PHARMACY GLYCEMIC MGMT CONSULT PRN (07:47)
[2022-10-09] MEDS: tiZANidine HCL 4 MG TABLET PO SCH ×3 (08:20→20:40)
[2022-10-09] MEDS: carvediloL 6.25 MG TAB PO SCH ×2 (08:20→20:38)
[2022-10-09] MEDS: DANTROLENE SODIUM 25 MG CAP PO SCH ×3 (08:21→20:39)
[2022-10-09] MEDS: SENNA 8.6 MG TAB PO SCH ×2 (08:21→20:38)
[2022-10-09] MEDS: PANTOprazole 40 MG TAB PO SCH ×2 (08:22→20:40)
[2022-10-09] MEDS: ENALAPRIL MALEATE 10 MG TAB PO SCH (08:22)
[2022-10-09] MEDS: MAGNESIUM OXIDE 400 MG TAB PO SCH (08:23)
[2022-10-09] MEDS: SPIRONOLACTONE 25 MG TAB PO SCH (08:24)
[2022-10-09] MEDS: MULTIVITAMIN TAB PO SCH (08:25)
[2022-10-09] MEDS: FUROSEMIDE 40 MG TAB PO SCH (08:25)
[2022-10-09] MEDS: MIRABEGRON ER 25 MG TAB PO SCH (08:25)
[2022-10-09] MEDS: CETIRIZINE HCL 10 MG TABLET PO SCH (08:26)
[2022-10-09] MEDS: DOCUSATE SODIUM 100 MG CAP PO SCH ×3 (08:26→20:39)
[2022-10-09] MEDS: dexAMETHasone 6 MG in SYRINGE 0 ML IV SCH (08:29)
[2022-10-09] MEDS: PREGABALIN 75 MG CAP PO SCH ×2 (08:37→20:38)
[2022-10-09] MEDS: INSULIN ASPART PER UNIT SC SCH ×4 (08:56→20:56)
--- NOTE | 2022-10-09 09:35 | Pharmacy Report ---
Pharmacy Glycemic Short Note 2 - Date of Service October 09, 2022 - Glycemic Short BSG Results (Last 24 hours): 10/08/22 10/08/22 10/08/22 12:24 17:02 20:44 POC Glucose 144 H 239 H 135 H 10/09/22 08:26 POC Glucose 105 H OUTPATIENT ANTIDIABETIC REGIMEN: * Metformin 1000 mg PO BID * Ozempic 1 mg SQ QWK ASSESSMENT: * Claudio Woods is a 67 year male with a past medical history of T2DM. Spinal surgery was done 10/07. On Dexamethasone 4mg x 1 on 10/07, then 6mg x 3 days * Was started on Novolog POD 1 (CF 35 & CR 12; Goal range 110-160) BSG has been between 135 -167 mg/dl (one time lunch BSG of 239 mg/dl on 10/08) * FBSG this morning is 105 mg/dl PLAN FOR INPATIENT GLYCEMIC CONTROL: * Hold outpatient oral diabetes medications * Will monitor prandial BSG * Bolus insulin * NovoLog per scale ACHS or Q6hrs while NPO * Goal Range: Low 110 mg/dL - High 160 mg/dL * Correction Factor: 35 mg/dL/unit * Nutritional / Prandial insulin per carb ratio of 1 unit per 12 grams CHO consumed
--- NOTE | 2022-10-09 10:53 | Orthopedic Progress Note ---
Date of Service October 09, 2022 Assessment & Plan (1) Thoracic spinal stenosis: Plan: At this time we will continue therapy as tolerated. We have discussed transfer to rehab in the next few days. Admission and Anticipated Discharge Date Admission Date: October 07, 2022 Subjective Patient's back pain is controlled symptoms overall improved Physical Exam Physical Exam: Patient is comfortable at this time. Skin strength testing upper extremities. Results & Data ([facility]) Vital Signs (Past 12 Hours) Vital Signs Temp Pulse Resp BP Pulse Ox O2 Del Method O2 Flow Rate 10/09/22 08:18 72 114/75 10/09/22 07:23 36.3 C L 73 18 103/66 94 Nasal Cannula 2
[2022-10-09] MEDS: CYANOCOBALAMIN (B-12) 500 MCG TABLET PO SCH (11:09)
[2022-10-09] MEDS: CHOLECALCIFEROL 1,000 UNITS 25 MCG TAB PO SCH (11:09)
[2022-10-09] MEDS: CALCIUM 600MG + VIT D 400 IU TAB PO SCH (11:09)
--- NOTE | 2022-10-09 20:14 | Hospitalist Progress Note ---
Date of Service October 09, 2022 Assessment & Plan (1) Thoracic spinal stenosis: Plan: Thoracic spinal stenosis, hx paraplegia S/p operative intervention 10/07/2022 #1 removal of posterior instrumentation T6-T7-T8. #2 exploration of fusion T6- T8. #3 thoracic decompression with bilateral medial facetectomies and foraminotomies T3-T4, T4-T5, and T5 C6. #4 posterior spinal fusion T3-T6. #5 placement posterior segmental instrumentation T3-T7. #6 placement locally harvested morselized autograft and posterior gutters. #7 placement of infuse collagen sponge bone mass graft and posterior gutters T3-T7. Management including DVT prophylaxis/activity/pain control per primary team Sensation intact in upper extremities, strength is intact in upper extremities. Patient has loss of sensation, bladder function, and strength below the umbilicus. - Hx of autonomic dysreflexia. Doing well at time of assessment. Continue serial clinical exams continue baclofen for spasm Continue pregabalin for neuropathic pain (2) Hypoxia: Plan: Suspect due to poor inspiratory effort due to operation site and underlying DENICE Encourage CPAP HS CXR in AM to assess for pulmonary edema and need for increased diuretics. Repeat labs in AM. Usually on 2LPM O2 at night but none during the day (3) Constipation: Plan: Post operative but he also has chronic problems with this. No significant bowel movement since admission Will increase MiraLAX to TID as his does this at home. Continue his usual senna. Use Enemeez in the morning (4) Spastic paraparesis: (5) Paralysis: (6) DENICE (obstructive sleep apnea): Plan: - CPAP qHS - encouraged patient to use this - waiting on recall list for new machine at home, follow-up with PCP to help facilitate (7) CAD (coronary artery disease): Plan: History of multiple ZOFIA placement including PCI of the LAD, unstable angina 2002 s/p PCI to RCA, and catheterization August 2012 with PCI to LAD Negative dobutamine stress echo/EKG prior to surgical intervention Recommend resuming antiplatelet agents at 24 hours. Last PCI was 2011. Recommend resuming at least monotherapy with ASA at 24 hours. Given extensive cardiac history would resume DAPT as soon as OK bleeding risk per surgical team Continue amlodipine, HCTZ, metoprolol, spironolactone Ramipril switched to enalapril per hospital formulary (8) Atrial fibrillation: Plan: most recent EKGs atrially paced, Pacer operating normally, last checked by cardiology 2021 Not on anticoagulation as outpatient, follows with cardiology Continue metoprolol as noted Adequately rate controlled at bedside assessment (9) Aortic insufficiency: Plan: Echo as noted, no acute interventions at this time (10) Aortic aneurysm: Plan: No signs of worsening / expansion. Continue outpatient follow-up. 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 Glucose checks AC/at bedtime, will add weight-based SSI - Weight based SSI Goal BSG [id number] (16) GERD (gastroesophageal reflux disease): Plan: Convert omeprazole to Protonix while inpatient (17) Hypertension: Plan: Continue antihypertensives as above Plan VTE Prophylaxis - per primary orthopedic service Diet - T2DM Disposition - per primary orthopedics team, no acute medical needs requiring ongoing inpatient care Admission and Anticipated Discharge Date Admission Date: October 07, 2022 Subjective Had a small hard bowel movement today but nothing large. Hypoxia continues. Main concern is his significant amount of sweating although he has no objective fever. Talked to his over the phone and she brought in Enemeez which has already been prescribed for tomorrow. Review of Systems Review of Systems: All systems reviewed & are unremarkable except as noted in Subjective Physical Exam Constitutional: WD/WN, vitals as above Respiratory: normal respiratory effort, lungs clear to auscultation Cardiovascular: Rate/Rhythm: regular rate and regular rhythm Heart Sounds: + murmur (throughout, loudest systolic LUSB) Gastrointestinal (Abdomen): normal bowel sounds, soft, nontender, no hepatosplenomegaly Skin: no rashes, warm and dry Psychiatric: A+Ox3, euthymic affect Results & Data Results & Data ([facility]) Vital Signs (Past 12 Hours) Vital Signs Temp Pulse Resp BP Pulse Ox O2 Del Method 10/09/22 15:33 36.5 C 76 16 105/68 93 Room Air 10/09/22 08:18 72 114/75 PG Care Time/CCT Total # of Minutes Spent Total Time Spent with Patient: Total time spent is greater than 50% in coordination of care (as documented) at patient's floor/unit and/or counseling patient: Coding Level of Care Code 08836 Subseq Hosp Care Lvl 2 Diagnoses Thoracic spinal stenosis M48.04 Hypoxia R09.02 Constipation K59.00 Spastic paraparesis Paralysis G83.9 DENICE (obstructive sleep apnea) G47.33 CAD (coronary artery disease) I25.10 Atrial fibrillation I48.91 Aortic insufficiency I35.1 Aortic aneurysm I71.9 Depression F32.9 Hyperlipidemia E78.5 Hyperlipidemia type: unspecified Neurogenic bladder N31.9 Pacemaker Z95.0 Type 2 diabetes mellitus E11.9 GERD (gastroesophageal reflux disease) K21.9 Hypertension I10 Hypertension type: essential hypertension (1) Hyperlipidemia Hyperlipidemia type: unspecified Qualified Code(s): E78.5 - Hyperlipidemia, unspecified (2) Hypertension Hypertension type: essential hypertension Qualified Code(s): I10 - Essential (primary) hypertension
[2022-10-09] MEDS ORDERED: POLYETHYLENE (MIRALAX) 17 GM PACK PO ONE (20:20)
[2022-10-09] MEDS: ASPIRIN 81 MG ECTAB PO SCH (20:39)
[2022-10-09] MEDS: DULoxetine HCL 60 MG CAP PO SCH (20:39)
[2022-10-09] MEDS: traZODone HCL 50 MG TAB PO SCH (20:40)
[2022-10-09] MEDS: traMADol HCL 50 MG TABLET PO PRN (20:46)
[2022-10-10] MEDS: BACLOFEN 10 MG TAB PO PRN ×3 (05:02→20:13)
[2022-10-10] MEDS: LORazepam 0.5 MG TAB PO PRN ×2 (05:27→16:09)
[2022-10-10] MEDS: HYDROCODONE/ACETAMOPHEN 5/325MG TAB PO PRN ×3 (05:27→20:12)
--- NOTE | 2022-10-10 07:07 | XRay Report ---
XR chest 1V portable CLINICAL HISTORY: hypoxia COMPARISON STUDY: Chest radiograph and chest CT April 22, 2022. FINDINGS: Dual lead left subclavian pacer and postoperative findings within the spine are incidentall y noted. Cardiomegaly is unchanged. There is no evidence for pulmonary edema. No pneumothorax or pleu ral effusion is identified. IMPRESSION: No acute cardiopulmonary findings. No change in appearance of the chest. ACT 112: Negative or not required by law. Electronically signed by: Meir Vasquez M.D. 10/10/2022 7:06 AM
[2022-10-10 07:26] LABS: Basophils # (auto) 0.02 K/uL (0-0.2); Basophils % (auto) 0.2 %; Eosinophils % (auto) 1.1 %; Hematocrit (blood only) 31.4 % (40.1-51.0); Hemoglobin 10.2 g/dl (14.0-18.0); Immature Granulocytes # (auto) 0.04 K/uL (0.00-0.02); Immature Granulocytes % (auto) 0.4 %; Lymphocytes % (auto) 22.1 %; Mean Corpuscular Hemoglobin 30.5 pg (25.0-34.0); Mean Corpuscular Hgb Conc 32.5 g/dL (32.0-36.0); Mean Platelet Volume 10.3 fL (9.4-12.4); Monocytes # (auto) 1.05 K/uL (0.24-0.82); Monocytes % (auto) 11.6 %; Neutrophils # (auto) 5.84 K/uL (1.4-6.5); Neutrophils % (auto) 64.6 %; Platelet Count 198 K/uL (130-400); RDW Coefficient of Variation 16.3 % (11.5-14.5); RDW Standard Deviation 55.6 fL (36.4-46.3); Red Blood Count 3.34 M/uL (4.63-6.08); White Blood Count 9.05 K/ul (4.8-10.8)
[2022-10-10 07:44] LABS: BUN Creatinine Ratio 31.9 (10-20); Calcium 7.9 mg/dl (8.5-10.1); Creatinine Clr Calc Pharmacy 192.4 ml/min; Est GFR (African American) 133.3 ml/min; Potassium 4.2 mmol/L (3.5-5.1)
[2022-10-10] MEDS: PREGABALIN 75 MG CAP PO SCH ×2 (08:21→20:30)
[2022-10-10] MEDS: POLYETHYLENE (MIRALAX) 17 GM PACK PO SCH ×3 (08:21→20:24)
[2022-10-10] MEDS: HYDROmorphone INJ 1 MG/ML SYRINGE IV PRN (08:21)
[2022-10-10] MEDS: FUROSEMIDE 40 MG TAB PO SCH (08:22)
[2022-10-10] MEDS: dexAMETHasone 6 MG in SYRINGE 0 ML IV SCH (08:22)
[2022-10-10] MEDS: SPIRONOLACTONE 25 MG TAB PO SCH (08:23)
[2022-10-10] MEDS: MAGNESIUM OXIDE 400 MG TAB PO SCH (08:23)
[2022-10-10] MEDS: DANTROLENE SODIUM 25 MG CAP PO SCH ×3 (08:24→20:19)
[2022-10-10] MEDS: tiZANidine HCL 4 MG TABLET PO SCH ×3 (08:24→20:19)
[2022-10-10] MEDS: PANTOprazole 40 MG TAB PO SCH ×2 (08:24→20:22)
[2022-10-10] MEDS: CETIRIZINE HCL 10 MG TABLET PO SCH (08:24)
[2022-10-10] MEDS: ENALAPRIL MALEATE 10 MG TAB PO SCH (08:24)
[2022-10-10] MEDS: MIRABEGRON ER 25 MG TAB PO SCH (08:25)
[2022-10-10] MEDS: DOCUSATE SODIUM 100 MG CAP PO SCH ×3 (08:25→20:21)
[2022-10-10] MEDS: SENNA 8.6 MG TAB PO SCH ×2 (08:25→20:22)
[2022-10-10] MEDS: carvediloL 6.25 MG TAB PO SCH ×2 (08:25→20:19)
[2022-10-10] MEDS ORDERED: [UNRECOGNIZED DRUG - OTHER] SCH (09:00)
[2022-10-10] MEDS: INSULIN ASPART PER UNIT SC SCH ×4 (09:23→21:30)
[2022-10-10] MEDS: BENZOCAINE PR SCH ×2 (09:26→10:30)
[2022-10-10] MEDS: DOCUSATE PR SCH ×2 (09:26→10:30)
[2022-10-10] MEDS ORDERED: LORazepam 1 MG in SYRINGE 0 ML IV STA (09:34)
--- NOTE | 2022-10-10 10:09 | Orthopedic Progress Note ---
Date of Service October 10, 2022 Assessment & Plan (1) Thoracic spinal stenosis: Plan: This time he is having spasms. Apparently has had these in the past in the perioperative period his drain is decreasing appropriately. We will attempt some IV medications. If we continue to struggle with pain I may consult interventional pain management for their input. Admission and Anticipated Discharge Date Admission Date: October 07, 2022 Subjective Patient struggling with significant spasms. He states this involves his thoracic spine down to his abdomen and perineal area. He has had these in the past. The become more troublesome today. It is responsive to IV medications. Physical Exam Physical Exam: On exam he is alert and cooperative today. He is lying supine. He is having spasms. He is neurologically intact to the upper extremities. Results & Data ([facility]) Vital Signs (Past 12 Hours) Vital Signs Temp Pulse Resp BP Pulse Ox O2 Del Method 10/10/22 07:29 36.5 C 70 16 129/83 93 Room Air
--- NOTE | 2022-10-10 11:06 | Hospitalist Progress Note ---
Date of Service October 10, 2022 Assessment & Plan (1) Thoracic spinal stenosis: Plan: Thoracic spinal stenosis, hx paraplegia S/p operative intervention 10/07/2022 #1 removal of posterior instrumentation T6-T7-T8. #2 exploration of fusion T6- T8. #3 thoracic decompression with bilateral medial facetectomies and foraminotomies T3-T4, T4-T5, and T5 C6. #4 posterior spinal fusion T3-T6. #5 placement posterior segmental instrumentation T3-T7. #6 placement locally harvested morselized autograft and posterior gutters. #7 placement of infuse collagen sponge bone mass graft and posterior gutters T3-T7. Management including DVT prophylaxis/activity/pain control per primary team Sensation intact in upper extremities, strength is intact in upper extremities. Patient has loss of sensation, bladder function, and strength below the umbilicus. - Hx of autonomic dysreflexia. Doing well at time of assessment. Continue serial clinical exams continue baclofen for spasm Continue pregabalin for neuropathic pain (2) Hypoxia: Plan: Suspect due to poor inspiratory effort due to operation site and underlying DENICE Encourage CPAP HS. Patient's previous polysomnography exam with split study required 10 cm of water. Will order CPAP while in the hospital. Home CPAP machine under recall CXR in AM to assess for pulmonary edema and need for increased diuretics. Repeat labs in AM. Usually on 2LPM O2 at night but none during the day (3) Constipation: Plan: Post operative but he also has chronic problems with this. No significant bowel movement since admission Will increase MiraLAX to TID as his does this at home. Continue his usual senna. Use Enemeez in the morning (4) Spastic paraparesis: Plan: Per Dr. Almaraz (5) Paralysis: Plan: Per Dr. Almaraz (6) DENICE (obstructive sleep apnea): Plan: - CPAP qHS - encouraged patient to use this - waiting on recall list for new machine at home, follow-up with PCP to help facilitate -Initially CPAP was ordered the patient had respiratory rate of 8 breaths/min. Converted to BiPAP with backup rate -Continue BiPAP at bedtime and as needed during the day with naps (7) CAD (coronary artery disease): Plan: History of multiple ZOFIA placement including PCI of the LAD, unstable angina 2002 s/p PCI to RCA, and catheterization August 2012 with PCI to LAD Negative dobutamine stress echo/EKG prior to surgical intervention Recommend resuming antiplatelet agents at 24 hours. Last PCI was 2011. Re commend resuming at least monotherapy with ASA at 24 hours. Given extensive cardiac history would resume DAPT as soon as OK bleeding risk per surgical team Continue amlodipine, HCTZ, metoprolol, spironolactone Ramipril switched to enalapril per hospital formulary (8) Atrial fibrillation: Plan: most recent EKGs atrially paced, Pacer operating normally, last checked by cardiology 2021 Not on anticoagulation as outpatient, follows with cardiology Continue metoprolol as noted Adequately rate controlled at bedside assessment (9) Aortic insufficiency: Plan: Echo as noted, no acute interventions at this time (10) Aortic aneurysm: Plan: No signs of worsening / expansion. Continue outpatient follow-up. 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 Glucose checks AC/at bedtime, will add weight-based SSI - Weight based SSI Goal BSG [id number] (16) GERD (gastroesophageal reflux disease): Plan: Convert omeprazole to Protonix while inpatient (17) Hypertension: Plan: Continue antihypertensives as above Plan VTE Prophylaxis - per primary orthopedic service Diet - T2DM Disposition - per primary orthopedics team, no acute medical needs requiring ongoing inpatient care Admission and Anticipated Discharge Date Admission Date: October 07, 2022 Supervising Physician Co-Signing Physician Notes Attending Attestation - Chart reviewed, care plan d/w JESSICA Lazaro. I agree with the forte components of his documentation. Clayton Real MD Subjective Attending: Dr. Real Patient seen and examined in room 318. Patient was sleeping and was witnessed to have episodes of apnea prior to my awakening him. Upon waking up, patient will have startle reflex. He seemed to be somewhat disoriented and sleepy. Needed reorientation to place. Was able to give me mixed history. As my interview went along, he began to wake up more. Patient reports that he has history of obstructive sleep apnea but has not been using CPAP machine secondary to recall. He denies any chest pain or shortness of breath. Continues with surgical pain but otherwise doing fairly well. He denies any other acute complaints. Review of Systems Review of Systems: A total of 10 systems was reviewed and is negative other than as listed in the HPI Physical Exam Physical Exam: GENERAL : No acute distress. Patient somewhat groggy and disoriented. He just received narcotics for pain medication and lorazepam have been ordered. EYES: No icterus, gaze conjugate NOSE: No evidence of epistaxis MOUTH: No lesions or candidiasis NECK: Supple LUNGS: CTA B/L, no wheezes, rales or rhonchi HEART: Regular, rate controlled ABDOMEN: Soft, NT, ND, BS Present EXTREMITIES: No LE edema, pedal pulses intact. Sensation intact NEURO: A&OX3 Results & Data Results & Data ([facility]) Vital Signs (Past 12 Hours) Vital Signs Temp Pulse Resp BP Pulse Ox O2 Del Method 10/10/22 08:10 Room Air 10/10/22 07:29 36.5 C 70 16 129/83 93 Room Air Critical Care Results & Data Vital Signs (Past 12 Hours) Vital Signs Temp Pulse Pulse Resp BP Pulse Ox O2 Del Method 10/10/22 20:45 36.4 C L 10/10/22 20:14 78 18 127/75 94 Room Air 10/10/22 15:18 36.5 C 83 16 119/71 93 Room Air 10/10/22 11:31 70 19 97 O2 Flow Rate 10/10/22 20:45 10/10/22 20:14 10/10/22 15:18 10/10/22 11:31 4 Lab & Micro Results (Past 24 Hours) No Data to Display No Data to Display No Data to Display Diagnostic Findings (Past 24 Hours) Chest X-Ray 10/10/22 07:00 XR chest 1V portable CLINICAL HISTORY: hypoxia COMPARISON STUDY: Chest radiograph and chest CT April 22, 2022. FINDINGS: Dual lead left subclavian pacer and postoperative findings within the spine are incidentally noted. Cardiomegaly is unchanged. There is no evidence for pulmonary edema. No pneumothorax or pleural effusion is identified. IMPRESSION: No acute cardiopulmonary findings. No change in appearance of the chest. ACT 112: Negative or not required by law. Electronically signed by: Meir Vasquez M.D. 10/10/2022 7:06 AM I & O Totals 24 Hours 10/09/22 10/10/22 10/11/22 06:59 06:59 06:59 Intake Total 475 / 475 1625 / 1625 300 / 300 Output Total 4000 / 4000 3727 / 3727 2635 / 2635 Balance -3525 / -3525 -2102 / -2102 -2335 / -2335 Cumulative 08/17/22 12:24 thru 10/10/22 20:45 Intake Total 6397.5 Output Total 65931 Balance -5434.5 RT Ventilator Mngmt (Last Documented) Ventilator Ordered Settings Respiratory Rate 18 10/10/22 20:14 Ventilator - PT Measurements Respiratory Rate 18 PG Care Time/CCT Total # of Minutes Spent Total Time Spent with Patient: Total time spent is greater than 50% in coordination of care (as documented) at patient's floor/unit and/or counseling patient: Coding Level of Care Code 63860 Subseq Hosp Care Lvl 2 Diagnoses Thoracic spinal stenosis M48.04 Hypoxia R09.02 Constipation K59.00 Spastic paraparesis Paralysis G83.9 DENICE (obstructive sleep apnea) G47.33 CAD (coronary artery disease) I25.10 Atrial fibrillation I48.91 Aortic insufficiency I35.1 Aortic aneurysm I71.9 Depression F32.9 Hyperlipidemia E78.5 Hyperlipidemia type: unspecified Neurogenic bladder N31.9 Pacemaker Z95.0 Type 2 diabetes mellitus E11.9 GERD (gastroesophageal reflux disease) K21.9 Hypertension I10 Hypertension type: essential hypertension (1) Hyperlipidemia Hyperlipidemia type: unspecified Qualified Code(s): E78.5 - Hyperlipidemia, unspecified (2) Hypertension Hypertension type: essential hypertension Qualified Code(s): I10 - Essential (primary) hypertension
[2022-10-10] MEDS: CALCIUM 600MG + VIT D 400 IU TAB PO SCH (13:19)
[2022-10-10] MEDS: MULTIVITAMIN TAB PO SCH (13:20)
[2022-10-10] MEDS: CYANOCOBALAMIN (B-12) 500 MCG TABLET PO SCH (13:20)
[2022-10-10] MEDS: CHOLECALCIFEROL 1,000 UNITS 25 MCG TAB PO SCH (13:20)
[2022-10-10] MEDS: traZODone HCL 50 MG TAB PO SCH (20:20)
[2022-10-10] MEDS: ASPIRIN 81 MG ECTAB PO SCH (20:22)
[2022-10-10] MEDS: [UNRECOGNIZED DRUG - OTHER] PO SCH (20:23)
[2022-10-10] MEDS: DULoxetine HCL 60 MG CAP PO SCH (20:23)
[2022-10-10] MEDS: HYDROmorphone INJ 0.5 MG/0.5 ML SYR IV PRN (21:31)
[2022-10-11] MEDS: HYDROCODONE/ACETAMOPHEN 5/325MG TAB PO PRN ×2 (00:05→09:55)
[2022-10-11] MEDS: LORazepam 0.5 MG TAB PO PRN (00:05)
--- NOTE | 2022-10-11 08:42 | Orthopedic Progress Note ---
Date of Service October 11, 2022 Assessment & Plan (1) Thoracic spinal stenosis: Plan: Will continue with pain control today. DVT prophylaxis is in the form teds and SCDs. Maintain ROME drain. Most likely remove this tomorrow. Currently awaiting discharge to [facility]. Admission and Anticipated Discharge Date Admission Date: October 07, 2022 Subjective Patient is postoperative day 4 status post thoracic decompression and instrumented fusion. He was having quite a bit of spasms yesterday but this seems to be improved. ROME drain output last shift was 30 cc. He is a bit frustrated with his progress today. Regarding awaiting authorization from [facility]. Review of Systems Review of Systems: All systems reviewed & are unremarkable except as noted in HPI & below Physical Exam Physical Exam: He is lying in bed in no acute distress Alert and oriented x3 Upper extremity motor strength is intact Motor strength is unchanged in his lower extremities Results & Data ([facility]) Vital Signs (Past 12 Hours) Vital Signs Temp Pulse Pulse Resp BP Pulse Ox O2 Del Method 10/11/22 07:07 37 C 103 H 20 152/81 H 92 BiPAP 10/11/22 03:17 79 24 92 10/10/22 22:25 68 18 97 10/10/22 20:45 36.4 C L O2 Flow Rate 10/11/22 07:07 10/11/22 03:17 2 10/10/22 22:25 2 10/10/22 20:45
[2022-10-11] MEDS: DOCUSATE PR SCH (09:16)
[2022-10-11] MEDS: BENZOCAINE PR SCH (09:16)
[2022-10-11] MEDS: SPIRONOLACTONE 25 MG TAB PO SCH (09:22)
[2022-10-11] MEDS: MULTIVITAMIN TAB PO SCH (09:22)
[2022-10-11] MEDS: POLYETHYLENE (MIRALAX) 17 GM PACK PO SCH ×3 (09:22→21:21)
[2022-10-11] MEDS: PANTOprazole 40 MG TAB PO SCH ×2 (09:22→21:17)
[2022-10-11] MEDS: FUROSEMIDE 40 MG TAB PO SCH (09:22)
[2022-10-11] MEDS: ENALAPRIL MALEATE 10 MG TAB PO SCH (09:22)
[2022-10-11] MEDS: SENNA 8.6 MG TAB PO SCH ×2 (09:22→21:16)
[2022-10-11] MEDS: DOCUSATE SODIUM 100 MG CAP PO SCH ×3 (09:23→21:19)
[2022-10-11] MEDS: DANTROLENE SODIUM 25 MG CAP PO SCH ×3 (09:23→21:18)
[2022-10-11] MEDS: CETIRIZINE HCL 10 MG TABLET PO SCH (09:23)
[2022-10-11] MEDS: carvediloL 6.25 MG TAB PO SCH (09:23)
[2022-10-11] MEDS: MIRABEGRON ER 25 MG TAB PO SCH (09:23)
[2022-10-11] MEDS: MAGNESIUM OXIDE 400 MG TAB PO SCH (09:23)
[2022-10-11] MEDS: tiZANidine HCL 4 MG TABLET PO SCH ×3 (09:23→21:16)
[2022-10-11] MEDS: INSULIN ASPART PER UNIT SC SCH ×4 (09:33→21:25)
[2022-10-11] MEDS: PREGABALIN 75 MG CAP PO SCH ×2 (09:54→21:14)
[2022-10-11] MEDS: HYDROmorphone INJ 1 MG/ML SYRINGE IV PRN (11:22)
[2022-10-11] MEDS: CYANOCOBALAMIN (B-12) 500 MCG TABLET PO SCH (12:50)
[2022-10-11] MEDS: CHOLECALCIFEROL 1,000 UNITS 25 MCG TAB PO SCH (12:55)
[2022-10-11] MEDS: CALCIUM 600MG + VIT D 400 IU TAB PO SCH (12:55)
--- NOTE | 2022-10-11 13:38 | Pharmacy Report ---
Pharmacy Glycemic Short Note 2 - Date of Service October 11, 2022 - Glycemic Short BSG Results (Last 24 hours): 10/10/22 10/10/22 10/11/22 17:06 21:01 08:03 POC Glucose 277 H 220 H 92 10/11/22 12:06 POC Glucose 168 H OUTPATIENT ANTIDIABETIC REGIMEN: * Metformin 1000 mg PO BID * Ozempic 1 mg SQ QWK HbA1c: 5.3% (09/08/22) ASSESSMENT: 10/11/22 * BSGs had been elevated secondary to IV dexamethasone, steroids have now been discontinued * Will hold off on basal insulin given fasting BSGs continue to be at goal * Will maintain aggressive Novolog parameters for today, but anticipate loosening in near future 10/09/22 * Claudio Woods is a 67 year male with a past medical history of T2DM. Spinal surgery was done 10/07. On Dexamethasone 4mg x 1 on 10/07, then 6mg x 3 days * Was started on Novolog POD 1 (CF 35 & CR 12; Goal range 110-160) BSG has been between 135 -167 mg/dl (one time lunch BSG of 239 mg/dl on 10/08) * FBSG this morning is 105 mg/dl PLAN FOR INPATIENT GLYCEMIC CONTROL: * Hold outpatient oral diabetes medications * Basal insulin * Hold * Bolus insulin * NovoLog per scale ACHS or Q6hrs while NPO * Goal Range: Low 110 mg/dL - High 160 mg/dL * Correction Factor: 20 mg/dL/unit * Nutritional / Prandial insulin per carb ratio of 1 unit per 7 grams CHO consumed
[2022-10-11] MEDS ORDERED: LORazepam 0.5 MG in SYRINGE 0 ML IV PRN (16:11)
[2022-10-11 16:41] LABS: Base Excess ABG 8.2 mEq/L (-9-1.8); HCO3 ABG 33 mmol/L (19-24); Oxygen Saturation ABG 98.3 % (90-95); PCO2 ABG 44 mmHg (35-46); PO2 ABG 80 mmHg (80-95); pH ABG 7.48 (7.35-7.45)
[2022-10-11 16:42] LABS: Allen Test Pos (Pos)
[2022-10-11 17:00] LABS: Albumin Level 3.1 gm/dl (3.4-5.0); Bilirubin Direct 0.1 mg/dl (0-0.2); Bilirubin,Total 0.5 mg/dl (0.2-1.0); Total Protein 5.5 gm/dl (6.0-8.3)
[2022-10-11] MEDS ORDERED: SODIUM CHLORIDE 0.9% 1000ML 250 ML IV ONE (17:39)
[2022-10-11] MEDS: DULoxetine HCL 60 MG CAP PO SCH (21:15)
[2022-10-11] MEDS: ASPIRIN 81 MG ECTAB PO SCH (21:17)
[2022-10-11] MEDS: [UNRECOGNIZED DRUG - OTHER] PO SCH (21:18)
[2022-10-11] MEDS: traZODone HCL 50 MG TAB PO SCH (21:20)
[2022-10-11] MEDS ORDERED: ACETAMINOPHEN 1,000 MG/100 ML VIAL IV STA (21:53)
--- NOTE | 2022-10-11 22:13 | Hospitalist Progress Note ---
Date of Service October 11, 2022 Assessment & Plan (1) Thoracic spinal stenosis: Plan: Thoracic spinal stenosis, hx paraplegia S/p operative intervention 10/07/2022 #1 removal of posterior instrumentation T6-T7-T8. #2 exploration of fusion T6- T8. #3 thoracic decompression with bilateral medial facetectomies and foraminotomies T3-T4, T4-T5, and T5 C6. #4 posterior spinal fusion T3-T6. #5 placement posterior segmental instrumentation T3-T7. #6 placement locally harvested morselized autograft and posterior gutters. #7 placement of infuse collagen sponge bone mass graft and posterior gutters T3-T7. Management including DVT prophylaxis/activity/pain control per primary team Sensation intact in upper extremities, strength is intact in upper extremities. Patient has loss of sensation, bladder function, and strength below the umbilicus. - Hx of autonomic dysreflexia. Doing well at time of assessment. Continue serial clinical exams continue baclofen for spasm Continue pregabalin for neuropathic pain -Patient with early warning system score deemed critical event. Received naloxone. Responded well to the counter treatment. Dr. Almaraz aware and will further discuss pain management tomorrow with the patient. If patient should continue to have low respiratory rate, low threshold for transfer to telemetry unit for closer monitoring. (2) Hypoxia: Plan: Suspect due to poor inspiratory effort due to operation site and underlying DENICE Encouraged CPAP HS. Patient's previous polysomnography exam with split study required 10 cm of water. Will order CPAP while in the hospital. Home CPAP machine under recall CXR in AM to assess for pulmonary edema and need for increased diuretics. Repeat labs in AM. Usually on 2LPM O2 at night but none during the day Due to patient's low respiratory rate, BiPAP with backup rate of 16 was ordered and is to be used not only at night but during the day when patient is napping Arterial blood gas was collected today and shows no hypercapnia or hypoxia. However patient is alkalotic with a pH of 7.48 and should be monitored closely (3) Constipation: Plan: Post operative but he also has chronic problems with this. No significant bowel movement since admission Will increase MiraLAX to TID as his does this at home. Continue his usual s tyler. Use Enemeez as needed (4) Spastic paraparesis: Plan: Per Dr. Almaraz (5) Paralysis: Plan: Per Dr. Almaraz (6) DENICE (obstructive sleep apnea): Plan: - CPAP qHS - encouraged patient to use this - waiting on recall list for new machine at home, follow-up with PCP to help facilitate -Initially CPAP was ordered the patient had respiratory rate of 8 breaths/min. Converted to BiPAP with backup rate -Continue BiPAP at bedtime and as needed during the day with naps while inpatient (7) CAD (coronary artery disease): Plan: History of multiple ZOFIA placement including PCI of the LAD, unstable angina 2002 s/p PCI to RCA, and catheterization August 2012 with PCI to LAD Negative dobutamine stress echo/EKG prior to surgical intervention Recommend resuming antiplatelet agents at 24 hours. Last PCI was 2011. Recommend resuming at least monotherapy with ASA at 24 hours. Given extensive cardiac history would resume DAPT as soon as OK bleeding risk per surgical team Continue amlodipine, HCTZ, metoprolol, spironolactone Ramipril switched to enalapril per hospital formulary (8) Atrial fibrillation: Plan: most recent EKGs atrially paced, Pacer operating normally, last checked by cardiology 2021 Not on anticoagulation as outpatient, follows with cardiology Continue metoprolol as noted Adequately rate controlled at bedside assessment (9) Aortic insufficiency: Plan: Echo as noted, no acute interventions at this time (10) Aortic aneurysm: Plan: No signs of worsening / expansion. Continue outpatient follow-up. (11) Depression: Plan: Continue duloxetine 60 mg at bedtime (12) Hyperlipidemia: Plan: Continue Pitavastatin Patient may use his own medication (13) Neurogenic bladder: Plan: - Suprapubic catheter was exchanged on October 01 Draining clear yellow urine assessment No signs of surrounding infection Continue to monitor (14) Pacemaker: Plan: No indication for interrogation at this time (15) Type 2 diabetes mellitus: Plan: - On metformin and ozempic DIETETIC INTERN. Glucose checks AC/at bedtime, will add weight-based SSI - Weight based SSI Goal BSG [id number] (16) GERD (gastroesophageal reflux disease): Plan: Convert omeprazole to Protonix while inpatient (17) Hypertension: Plan: Continue antihypertensives as above Plan VTE Prophylaxis - per primary orthopedic service Diet - T2DM Disposition - per primary orthopedics team Admission and Anticipated Discharge Date Admission Date: October 07, 2022 Supervising Physician Co-Signing Physician Notes Attending Attestation - Chart reviewed, care plan d/w JESSICA Lazaro. I agree with the forte components of his documentation. Clayton Real MD Subjective Attending: Dr. Real Patient seen and examined initially in the morning in room 318. Although he was somnolent, he was easily arousable and answer to questions appropriately. He continues to complain about pain at his surgical site. No fever or chills. He has no nausea or vomiting. No other acute complaints. This afternoon at approximately 1545, I received a [place] text from the on-duty nurse who indicated that the patient had an early warning system score that was critical. I reported to the room and found the patient to be lethargic and somewhat apneic with a reduced respiratory rate of approximately 8 breaths/min. Pulse oximetry was 94% on 2 L via nasal cannula. Heart rate was palpable. Patient was given 0.1 mg of naloxone and became more awake and alert within about 4 minutes. Patient had received [place] earlier in the day as well as 1 mg of Dilaudid. He has also received lorazepam for complaints of spasm. Patient recovered nicely. Dr. Almaraz was made aware of not only the event but also the medications were reduced to try to avoid future occurrences. He will review pain medication regimen tomorrow and discuss options with the patient Review of Systems Review of Systems: A total of 10 systems was reviewed and is negative other than as listed in the HPI Physical Exam Physical Exam: GENERAL : No acute distress. Patient somewhat groggy and disoriented. He just received narcotics for pain medication and lorazepam have been ordered. EYES: No icterus, gaze conjugate NOSE: No evidence of epistaxis MOUTH: No lesions or candidiasis NECK: Supple LUNGS: CTA B/L, no wheezes, rales or rhonchi HEART: Regular, rate controlled ABDOMEN: Soft, NT, ND, BS Present EXTREMITIES: No LE edema, pedal pulses intact. Sensation intact NEURO: A&OX3 Results & Data Results & Data ([facility]) Vital Signs (Past 12 Hours) Vital Signs Temp Pulse Resp BP Pulse Ox O2 Del Method O2 Flow Rate 10/11/22 21:53 36.3 C L 82 18 147/88 H 94 Room Air 10/11/22 20:17 36.8 C 71 18 118/73 93 Nasal CPAP 2.0 10/11/22 19:23 116/72 10/11/22 18:00 78 16 120/73 10/11/22 17:15 70 16 91/59 L 96 BiPAP 10/11/22 16:15 77 16 99/63 L 92 BiPAP 10/11/22 16:05 74 16 102/67 92 Nasal Cannula 2 10/11/22 16:48 81 16 110/69 92 Nasal Cannula 2 10/11/22 15:55 77 16 99/63 L 92 Nasal Cannula 2 10/11/22 15:13 36.3 C L 75 18 85/57 L 93 Nasal Cannula 3 Critical Care Results & Data Vital Signs (Past 12 Hours) Vital Signs Temp Pulse Resp BP Pulse Ox O2 Del Method O2 Flow Rate 10/11/22 21:53 36.3 C L 82 18 147/88 H 94 Room Air 10/11/22 20:17 36.8 C 71 18 118/73 93 Nasal CPAP 2.0 10/11/22 19:23 116/72 10/11/22 18:00 78 16 120/73 10/11/22 17:15 70 16 91/59 L 96 BiPAP 10/11/22 16:15 77 16 99/63 L 92 BiPAP 10/11/22 16:05 74 16 102/67 92 Nasal Cannula 2 10/11/22 16:48 81 16 110/69 92 Nasal Cannula 2 10/11/22 15:55 77 16 99/63 L 92 Nasal Cannula 2 10/11/22 15:13 36.3 C L 75 18 85/57 L 93 Nasal Cannula 3 Lab & Micro Results (Past 24 Hours) No Data to Display No Data to Display No Data to Display I & O Totals 24 Hours 10/10/22 10/11/22 10/12/22 06:59 06:59 06:59 Intake Total 1625 / 1625 300 / 300 600 / 600 Output Total 3727 / 3727 4115 / 4115 1490 / 1490 Balance -2102 / -2102 -3815 / -3815 -890 / -890 Cumulative 08/17/22 12:24 thru 10/11/22 21:53 Intake Total 6997.5 Output Total 32273 Balance -7804.5 RT Ventilator Mngmt (Last Documented) Ventilator Ordered Settings Respiratory Rate 18 10/11/22 21:53 Ventilator - PT Measurements Respiratory Rate 18 PG Care Time/CCT Total # of Minutes Spent Total Time Spent with Patient: Total time spent is greater than 50% in coordination of care (as documented) at patient's floor/unit and/or counseling patient: Coding Level of Care Code 35862 Subseq Hosp Care Lvl 3 (25 - SIGNIFICANT, SEPARATELY IDENTIFIABLE ) Diagnoses Thoracic spinal stenosis M48.04 Hypoxia R09.02 Constipation K59.00 Spastic paraparesis Paralysis G83.9 DENICE (obstructive sleep apnea) G47.33 CAD (coronary artery disease) I25.10 Atrial fibrillation I48.91 Aortic insufficiency I35.1 Aortic aneurysm I71.9 Depression F32.9 Hyperlipidemia E78.5 Hyperlipidemia type: unspecified Neurogenic bladder N31.9 Pacemaker Z95.0 Type 2 diabetes mellitus E11.9 GERD (gastroesophageal reflux disease) K21.9 Hypertension I10 Hypertension type: essential hypertension Time Spent (min) 50 Comment 50 minutes of critical care time including reversal of narcotics / respiratory depression (1) Hyperlipidemia Hyperlipidemia type: unspecified Qualified Code(s): E78.5 - Hyperlipidemia, unspecified (2) Hypertension Hypertension type: essential hypertension Qualified Code(s): I10 - Essential (primary) hypertension
[2022-10-12 07:04] LABS: Hematocrit (blood only) 31.4 % (40.1-51.0); Hemoglobin 10.3 g/dl (14.0-18.0); Mean Corpuscular Hemoglobin 30.6 pg (25.0-34.0); Mean Corpuscular Hgb Conc 32.8 g/dL (32.0-36.0); Mean Corpuscular Volume 93.2 fL (80.0-100.0); Platelet Count 215 K/uL (130-400); RDW Coefficient of Variation 16.2 % (11.5-14.5); Red Blood Count 3.37 M/uL (4.63-6.08); White Blood Count 8.28 K/ul (4.8-10.8)
[2022-10-12 07:27] LABS: BUN Creatinine Ratio 26.7 (10-20); Calcium 8.3 mg/dl (8.5-10.1); Est GFR (African American) 135.7 ml/min; Est GFR (Non-African American) 117.1 ml/min; Potassium 4.1 mmol/L (3.5-5.1)
--- NOTE | 2022-10-12 08:11 | XRay Report ---
XR chest 1V portable HISTORY: Possible aspiration. Assess for pneumonia. Aspiration? COMPARISON: Chest 10/10/2022. FINDINGS: No pneumothorax. No pleural effusions. The heart remains mildly enlarged. Is left-sided judith l-chamber pacemaker. Cervical and thoracic spinal fusion hardware is noted. No evidence for pulmonary edema. Patchy right middle lobe airspace opacities are new from the prior study. This could be due t o an aspiration pneumonitis. IMPRESSION: There are new patchy right middle lobe airspace opacities. This may represent an aspiration pneumonit is. ACT 112: Negative or not required by law. Electronically signed by: Sukhi Alanis M.D. 10/12/2022 8:10 AM
[2022-10-12] MEDS: MAGNESIUM OXIDE 400 MG TAB PO SCH (08:32)
[2022-10-12] MEDS: PREGABALIN 75 MG CAP PO SCH ×2 (08:32→21:15)
[2022-10-12] MEDS: FUROSEMIDE 40 MG TAB PO SCH (08:32)
[2022-10-12] MEDS: SENNA 8.6 MG TAB PO SCH ×2 (08:32→21:09)
[2022-10-12] MEDS: ENALAPRIL MALEATE 10 MG TAB PO SCH (08:32)
[2022-10-12] MEDS: DOCUSATE SODIUM 100 MG CAP PO SCH ×3 (08:32→21:07)
[2022-10-12] MEDS: DANTROLENE SODIUM 25 MG CAP PO SCH ×3 (08:32→21:06)
[2022-10-12] MEDS: PANTOprazole 40 MG TAB PO SCH ×2 (08:32→21:08)
[2022-10-12] MEDS: SPIRONOLACTONE 25 MG TAB PO SCH (08:32)
[2022-10-12] MEDS: MULTIVITAMIN TAB PO SCH (08:32)
[2022-10-12] MEDS: MIRABEGRON ER 25 MG TAB PO SCH (08:32)
[2022-10-12] MEDS: tiZANidine HCL 4 MG TABLET PO SCH ×3 (08:33→21:09)
[2022-10-12] MEDS: FLUTICASONE PROPIONATE NA SPR 16 GM BTL PRN (08:34)
[2022-10-12] MEDS: POLYETHYLENE (MIRALAX) 17 GM PACK PO SCH ×3 (08:49→22:27)
[2022-10-12] MEDS: INSULIN ASPART PER UNIT SC SCH ×4 (08:51→21:12)
--- NOTE | 2022-10-12 09:55 | Orthopedic Progress Note ---
Date of Service October 12, 2022 Assessment & Plan (1) Thoracic spinal stenosis: Plan: At this time we will continue to wean him from his medication requirements. He is to sit up at all times specially when trying to sleep. He struggles with the CPAP machine. We are awaiting approval for transfer to [facility]. Admission and Anticipated Discharge Date Admission Date: October 07, 2022 Subjective Patient's pain is controlled today. He feels that he is improving. Physical Exam Physical Exam: On exam he is much more oriented today. Upper extremity strength consistent. Results & Data ([facility]) Vital Signs (Past 12 Hours) Vital Signs Temp Pulse Pulse Pulse Resp BP Pulse Ox 10/12/22 08:15 36.8 C 74 12 144/86 H 93 10/12/22 07:22 36.5 C 75 14 132/81 92 10/12/22 02:45 60 18 94 10/11/22 23:47 69 20 96 O2 Del Method O2 Flow Rate 10/12/22 08:15 Room Air 10/12/22 07:22 Room Air 10/12/22 02:45 3 10/11/22 23:47 3
[2022-10-12] MEDS: HYDROCODONE/ACETAMOPHEN 5/325MG TAB PO PRN ×2 (10:40→21:11)
[2022-10-12] MEDS: BENZOCAINE PR SCH (11:53)
[2022-10-12] MEDS: DOCUSATE PR SCH (11:53)
[2022-10-12] MEDS: CHOLECALCIFEROL 1,000 UNITS 25 MCG TAB PO SCH (13:09)
[2022-10-12] MEDS: CALCIUM 600MG + VIT D 400 IU TAB PO SCH (13:09)
[2022-10-12] MEDS: CYANOCOBALAMIN (B-12) 500 MCG TABLET PO SCH (13:13)
[2022-10-12] MEDS: ASPIRIN 81 MG ECTAB PO SCH (21:05)
[2022-10-12] MEDS: [UNRECOGNIZED DRUG - OTHER] PO SCH (21:07)
[2022-10-12] MEDS: DULoxetine HCL 60 MG CAP PO SCH (21:08)
[2022-10-12] MEDS: traZODone HCL 50 MG TAB PO SCH (21:10)
[2022-10-12] MEDS: carvediloL 6.25 MG TAB PO SCH (21:11)
[2022-10-13] MEDS: HYDROCODONE/ACETAMOPHEN 5/325MG TAB PO PRN ×3 (04:57→13:41)
[2022-10-13] MEDS: FLUTICASONE PROPIONATE NA SPR 16 GM BTL PRN (08:09)
[2022-10-13] MEDS: POLYETHYLENE (MIRALAX) 17 GM PACK PO SCH ×2 (08:09→14:22)
[2022-10-13] MEDS: BENZOCAINE PR SCH (08:19)
[2022-10-13] MEDS: DOCUSATE PR SCH (08:19)
--- NOTE | 2022-10-13 08:19 | Orthopedic Progress Note ---
Date of Service October 13, 2022 Assessment & Plan (1) Thoracic spinal stenosis: Plan: At this time he is cleared for [facility] from an orthopedic standpoint. We will have him discharge when bed available. Admission and Anticipated Discharge Date Admission Date: October 07, 2022 Subjective Patient's back pain is controlled. He slept better last night. Physical Exam Physical Exam: On exam is much more alert. Is good strength testing epidermid es. Results & Data ([facility]) Vital Signs (Past 12 Hours) Vital Signs Temp Pulse Resp BP Pulse Ox O2 Del Method O2 Flow Rate 10/13/22 07:48 36.3 C L 82 16 121/76 96 Nasal Cannula 3 10/12/22 21:20 Nasal Cannula 2 10/12/22 20:21 36.6 C 89 18 135/82 92 Nasal Cannula 3.0
[2022-10-13] MEDS: tiZANidine HCL 4 MG TABLET PO SCH ×2 (08:24→14:22)
[2022-10-13] MEDS: PANTOprazole 40 MG TAB PO SCH (08:24)
[2022-10-13] MEDS: SPIRONOLACTONE 25 MG TAB PO SCH (08:24)
[2022-10-13] MEDS: MAGNESIUM OXIDE 400 MG TAB PO SCH (08:24)
[2022-10-13] MEDS: DANTROLENE SODIUM 25 MG CAP PO SCH ×2 (08:24→14:22)
[2022-10-13] MEDS: carvediloL 6.25 MG TAB PO SCH (08:24)
[2022-10-13] MEDS: MIRABEGRON ER 25 MG TAB PO SCH (08:24)
[2022-10-13] MEDS: PREGABALIN 75 MG CAP PO SCH (08:24)
[2022-10-13] MEDS: FUROSEMIDE 40 MG TAB PO SCH (08:24)
[2022-10-13] MEDS: ENALAPRIL MALEATE 10 MG TAB PO SCH (08:24)
[2022-10-13] MEDS: MULTIVITAMIN TAB PO SCH (08:24)
[2022-10-13] MEDS: DOCUSATE SODIUM 100 MG CAP PO SCH ×2 (08:24→14:22)
[2022-10-13] MEDS: INSULIN ASPART PER UNIT SC SCH ×2 (09:29→12:59)
[2022-10-13] MEDS: CALCIUM 600MG + VIT D 400 IU TAB PO SCH (11:32)
[2022-10-13] MEDS: SENNA 8.6 MG TAB PO SCH (11:32)
[2022-10-13] MEDS: CYANOCOBALAMIN (B-12) 500 MCG TABLET PO SCH (11:32)
[2022-10-13] MEDS: CHOLECALCIFEROL 1,000 UNITS 25 MCG TAB PO SCH (11:32)
[2022-10-13] MEDS: BACLOFEN 10 MG TAB PO PRN (13:11)
--- NOTE | 2022-10-13 13:22 | Hospitalist Progress Note ---
Date of Service October 13, 2022 Assessment & Plan (1) Thoracic spinal stenosis: Plan: Thoracic spinal stenosis, hx paraplegia S/p operative intervention 10/07/2022 #1 removal of posterior instrumentation T6-T7-T8. #2 exploration of fusion T6- T8. #3 thoracic decompression with bilateral medial facetectomies and foraminotomies T3-T4, T4-T5, and T5 C6. #4 posterior spinal fusion T3-T6. #5 placement posterior segmental instrumentation T3-T7. #6 placement locally harvested morselized autograft and posterior gutters. #7 placement of infuse collagen sponge bone mass graft and posterior gutters T3-T7. Management including DVT prophylaxis/activity/pain control per primary team Sensation intact in upper extremities, strength is intact in upper extremities. Patient has loss of sensation, bladder function, and strength below the umbilicus. - Hx of autonomic dysreflexia. Doing well at time of assessment. Continue serial clinical exams continue baclofen for spasm and pregabalin for neuropathic pain (2) Hypoxia: Plan: Suspect due to poor inspiratory effort due to operation site and underlying DENICE - Encouraged CPAP HS. Patient's previous polysomnography exam with split study required 10 cm of water. Will order CPAP while in the hospital. Home CPAP machine under recall - Usually on 2LPM O2 at night but none during the day - Due to patient's low respiratory rate, BiPAP with backup rate of 16 was ordered and is to be used not only at night but during the day when patient is napping - Arterial blood gas was collected today and shows no hypercapnia or hypoxia. However patient is alkalotic with a pH of 7.48 and should be monitored closely - Current sat 96% on room air, did not require supplemental O2 yesterday during the day either - CXR 10/12 mentioned new patchy RML opacities, but pt with normal wbc count, afebrile, and no s/sx concerning for aspiration (3) Constipation: Plan: Post operative but he also has chronic problems with this. No significant bowel movement since admission Will increase MiraLAX to TID as his does this at home. Continue his usual senna. Use Enemeez as needed (4) Spastic paraparesis: Plan: Per Dr. Almaraz (5) Paralysis: Plan: Per Dr. Almaraz (6) DENICE (obstructive sleep apnea): Plan: - CPAP qHS - encouraged patient to use this - waiting on recall list for new machine at home, follow-up with PCP to help facilitate -Initially CPAP was ordered the patient had respiratory rate of 8 breaths/min. Converted to BiPAP with backup rate -Continue BiPAP at bedtime and as needed during the day with naps while inpatient (7) CAD (coronary artery disease): Plan: History of multiple ZOFIA placement including PCI of the LAD, unstable angina 2002 s/p PCI to RCA, and catheterization August 2012 with PCI to LAD Negative dobutamine stress echo/EKG prior to surgical intervention Recommend resuming antiplatelet agents at 24 hours. Last PCI was 2011. Recommend resuming at least monotherapy with ASA at 24 hours. Given extensive cardiac history would resume DAPT as soon as OK bleeding risk per surgical team Continue amlodipine, HCTZ, metoprolol, spironolactone Ramipril switched to enalapril per hospital formulary (8) Atrial fibrillation: Plan: most recent EKGs atrially paced, Pacer operating normally, last checked by cardiology 2021 Not on anticoagulation as outpatient, follows with cardiology Continue metoprolol as noted Adequately rate controlled at bedside assessment (9) Aortic insufficiency: Plan: Echo as noted, no acute interventions at this time (10) Aortic aneurysm: Plan: No signs of worsening / expansion. Continue outpatient follow-up. (11) Depression: Plan: Continue duloxetine 60 mg at bedtime (12) Hyperlipidemia: Plan: Continue Pitavastatin Patient may use his own medication (13) Neurogenic bladder: Plan: - Suprapubic catheter was exchanged on October 01 Draining clear yellow urine assessment No signs of surrounding infection Continue to monitor (14) Pacemaker: Plan: No indication for interrogation at this time (15) Type 2 diabetes mellitus: Plan: - On metformin and ozempic [place]. Glucose checks AC/at bedtime, will add weight-based SSI - Weight based SSI Goal BSG [id number] (16) GERD (gastroesophageal reflux disease): Plan: Convert omeprazole to Protonix while inpatient (17) Hypertension: Plan: Continue antihypertensives as above Plan Patient is medically stable for discharge to [facility] once bed is available. No further recommendations at this time. Thank you for allowing us to participate in the care of your patient, will sign off but please feel free to contact if the need should arise while patient remains in house. Plan d/w Dr. Nova. Admission and Anticipated Discharge Date Admission Date: October 07, 2022 Subjective Patient seen on daily rounds this morning. He is currently in bed, appears comfortable but when asked how his back is he replies "hurts." He denies cp, dyspnea, cough, fever/chills. Review of Systems Review of Systems: All systems reviewed and are unremarkable except as noted in HPI and below. Denies fever, chills, fatigue, headache, nasal congestion, sore throat, cough, chest pain, shortness of breath, palpitations, orthopnea, PND, abdominal pain, n/v/d, constipation, dysuria, hematuria, frequency, joint pain or swelling, easy bruising or bleeding, skin lesions or rashes. Physical Exam Physical Exam: GENERAL: pleasant 67 yo obese WM. NAD. LUNGS: Clear to auscultation bilaterally. Diminished in bases. CARDIOVASCULAR: Regular rate and rhythm. 2-3/6 FAVIAN ABDOMEN: Soft, non-tender and non-distended. BS normoactive x 4 quad. EXTREMITIES: No edema. Non-tender. Peripheral pulses +2/4. NEUROLOGIC: A&O x3. paraplegic PSYCHIATRIC: Cooperative. Appropriate mood and affect. SKIN: Warm, dry, intact. No rashes or lesions. Results & Data Results & Data ([facility]) Vital Signs (Past 12 Hours) Vital Signs Temp Pulse Resp BP Pulse Ox O2 Del Method O2 Flow Rate 10/13/22 08:10 Room Air 10/13/22 07:48 36.3 C L 82 16 121/76 96 Nasal Cannula 3 PG Care Time/CCT Total # of Minutes Spent Total Time Spent with Patient: Total time spent is greater than 50% in coordination of care (as documented) at patient's floor/unit and/or counseling patient: Coding Level of Care Code 39184 Subseq Hosp Care Lvl 2 Diagnoses Thoracic spinal stenosis M48.04 Hypoxia R09.02 Constipation K59.00 Spastic paraparesis Paralysis G83.9 DENICE (obstructive sleep apnea) G47.33 CAD (coronary artery disease) I25.10 Atrial fibrillation I48.91 Aortic insufficiency I35.1 Aortic aneurysm I71.9 Depression F32.9 Hyperlipidemia E78.5 Hyperlipidemia type: unspecified Neurogenic bladder N31.9 Pacemaker Z95.0 Type 2 diabetes mellitus E11.9 GERD (gastroesophageal reflux disease) K21.9 Hypertension I10 Hypertension type: essential hypertension (1) Hyperlipidemia Hyperlipidemia type: unspecified Qualified Code(s): E78.5 - Hyperlipidemia, unspecified (2) Hypertension Hypertension type: essential hypertension Qualified Code(s): I10 - Essential (primary) hypertension
--- NOTE | 2022-10-14 13:04 | Discharge Summary ---
Date of Service October 14, 2022 Admission HPI Per Admitting Provider This is a 67-year-old male well-known to the presents with persistent thoracic back pain after failing course of nonoperative care is here for surgical invention. Principal Diagnosis Thoracic spinal stenosis with neurogenic claudication Discharge Data Allergies Allergy/AdvReac Type Severity Reaction Status Date / Time erythromycin base Allergy Severe Anaphylaxis Verified 10/07/22 09:38 Fish Containing Products Allergy Severe THROAT Verified 10/07/22 09:38 SWELLS loratadine Allergy Severe BREATHING Verified 10/07/22 09:38 DIFFICULTY shellfish derived Allergy Severe throat Verified 10/07/22 09:38 gets scratchy diphenhydramine Allergy Intermediate HIVES Verified 10/07/22 09:38 Macrolide Antibiotics Allergy Intermediate E-MYCIN=HIVES; Verified 10/07/22 09:38 "MYCINS"--JAUNDICE rofecoxib AdvReac Severe CHEST PAIN Verified 10/07/22 09:38 zolpidem AdvReac Severe NIGHTMARES Verified 10/07/22 09:38 oxycodone AdvReac Intermediate TERRIBLE Verified 10/07/22 09:38 DREAMS,DISORIENTATION Consultations 10/07/22 15:29 Consult Hospitalist Routine Procedures Performed Operation Date: 10/07/22 09:55 Actual Procedures p T3-T6 Decompression and Fusion, (Not Applicable) - Barry Almaraz DO s Hardware Removal at T6-T8(Not Applicable) - Barry Almaraz DO Ordered Studies 10/07/22 09:55 FL thoracic spine 2V Routine Hospital Course (1) Thoracic spinal stenosis: Patient underwent thoracic decompression fusion tolerated well was taken to orthopedic for postop labor postop day 1 he was obtaining some relief but did require increased pain medicine over the past next few days. Steadily declined his requirements ROME drain decreased appropriately and was subsequently discharged to rehab. Discharge orders instructions from the chart for further review. Total Time Total Time Spent Total Time Spent (In Minutes): 20 minutes Discharge Plan Discharge Items Patient Disposition: Transfer Inpatient Rehab Fac Reason For Visit: Spinal Stenosis, Thoracic Region Discharge Diagnosis: Thoracic spinal stenosis Activity: As commented below Non-emergency contact: Primary Care Provider Call non-emergency contact if: you have any medication questions Follow-up/Referrals: Fransico Mccoy MD [Primary Care Provider] - Diet: Regular Addtl Attending Provider Instructions: ACTIVITY RECOMMENDATIONS: SELF CARE INSTRUCTIONS AFTER THORACIC/LUMBAR FUSIONS 1. You may walk to your tolerance. It is good exercise for your legs and back. Expect some back and intermittent leg aches and pains. 2. You may perform "counter-top" level activities (make a sandwich, antonio with a project, etc.). 3. No bending or lifting of more than 10 pounds or back twisting of any nature (roll like a log when turning in bed). 4. You may ride in a car for 20-30 minutes at a time. No driving until after your first visit with your doctor. 5. Frequent changes of position and restricting sitting to 30 minutes at a time will help limit the amount of back spasms and stiffness you may experience. 6. You may discontinue the use of ambulatory aids (cane, crutches, etc.) once your strength and confidence allow. 7. 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 Do not take a tub bath, sit in a hot tub or go into a swimming pool until after your first recheck in the office. SPECIAL CARE INSTRUCTIONS: VERY IMPORTANT TO READ AND REVIEW A. Your surgical incision has been closed with a cosmetic suture under the skin that will dissolve in about 6 weeks. In 14 days, you can use a pair of clean scissors and cut the suture that is left outside of the skin at the ends of your incision. 1. The small skin tapes can be removed 7 days after surgery if they have not fallen off by that point. 2. You may keep the wound open to air as much as possible to promote healing after post-op day number 5 unless told otherwise by your doctor. 3. If you think the wound looks like it is becoming infected (redness or worsening drainage) and/or you are experiencing fever, chill or worsening back pain and muscle spasms, contact the office so that we may evaluate you as soon as possible. B. Complications are uncommon, but please contact us if you have any signs or symptoms of: 1. wound infection (fever higher than 102.5 degrees F, redness, separation of wound, drainage, or increasing pain from the incision) 2. blood clots in legs (pain, swelling, redness and warmth in legs) 3. urinary tract infection (fever higher than 102.5 degrees F, burning upon urination or increased frequency of urination) 4. nerve problems (inability to walk on your toes or heels, numbness, loss of bowel or bladder control) 5. any other symptoms that concern you C. Please call the office at if you have any concerns or questions about your operation or recovery. D. No smoking! Smoking drastically decreases the chance of a solid fusion. E. Do not take any anti-inflammatory medications (Indocin, Advil, Motrin, Aspirin, Naprosyn, etc.) as these may inhibit the chance of a solid fusion. Tylenol is okay to take for pain. MANAGING PAIN AFTER SPINAL SURGERY 1. Narcotic medication is intended for short-term use and will be provided for surgical pain. Surgical pain usually lasts for a period of 4-6 weeks. Narcotic medication includes Percocet, Vicodin, Darvocet, Tylenol #3 or Lortab. 2. Longer-term pain is more appropriately treated with non-narcotic medication such as Tylenol ES. 3. Muscle spasm is not appropriately treated with narcotics. Muscle relaxers such as Soma, Flexeril or Skelaxin can be used along with Tylenol ES. 4. Remember that we all live with some "aches and pains". This is not unusual or uncommon after an injury or as we get older. a. Back pain is expected and may include muscle spasms for 4 to 6 weeks after surgery. The pain should gradually improve. If the pain worsens for no apparent reason, please contact the office. b. Intermittent leg pain may also be experienced and should not be concerned about unless it worsens for no apparent reason. If so, please contact the office. 5. We will provide appropriate medication within the normal guidelines of their prescribed use. We will also be very cautious and aware of potential abuse and extended duration of patients' medication needs. a. Pain medications are for your comfort and to assist with sleep and rest so that the tissue can heal. They are not provided in order to return to normal activity and should not be used through the day. To do so or worsening pain at night can result from ongoing tissue damage and development of tolerance to the prescribed medicine. 6. Please allow 2-3 days to process refills. Prescriptions will not be mailed but must be picked up at the office. FOLLOW UP VISIT: Keep your scheduled follow-up appointment. Any questions, please call the office at . Pending Studies at Discharge: No Stand-Alone Forms: My [facility] Skilled Items Patient informed of condition?: Yes DNR: No Discharge Level of Care: Acute rehab Communicable Disease: No Discharge Prognosis: Improving Lines: None Urinary Catheter: Yes Medications and DC Order Prescriptions: New hydrocodone-acetaminophen 5-325 mg tablet 1 tab PO Q6H PRN (Reason: pain) Qty: 30 0RF Rx Instructions: 1 tab PO PRN; Continued tizanidine 4 mg capsule 4 mg PO TID polyethylene glycol 3350 [Miralax] 17 gram/dose powder 17 g PO HS bisacodyl [Dulcolax (bisacodyl)] 10 mg suppository 10 mg KS QAM PRN (Reason: Constipation) metformin 1,000 mg tablet 1,000 mg PO BID lidocaine 5 % ointment 1 applic topical Q6H Myrbetriq 50 mg tablet extended release 24 hr 50 mg PO QAM omeprazole 20 mg capsule,delayed release(DR/EC) 20 mg PO BID multivitamin Tablet 1 tab PO QAM clopidogrel [Plavix] 75 mg Tablet 75 mg PO QAM nitroglycerin [Nitrostat] 0.4 mg Tablet, Sublingual 1 tab Sublingual UD PRN (Reason: Chest Pain) fluticasone propionate [Flonase Allergy Relief] 50 mcg/actuation [place],Suspension 1 spray INTRANASAL QAM PRN (Reason: Nasal Congestion) docusate sodium 100 mg Tablet 100 mg PO TID coenzyme Q10 [CoQ-10] 100 mg Capsule 100 mg PO HS calcium carbonate-vitamin D3 [Calcium 500 + D] 500 mg(1,250mg) -200 unit Tablet 1 tab PO BID trazodone 50 mg Tablet 25 mg PO HS duloxetine 60 mg Capsule,Delayed Release(Dr/Ec) 60 mg PO HS sennosides 8.6 mg Tablet 8.6 mg PO BID aspirin 81 mg Tablet,Delayed Release (Dr/Ec) 81 mg PO HS carvedilol 12.5 mg tablet 6.25 mg PO BID alendronate 70 mg tablet 70 mg PO WK Rx Instructions: Wednesday bacitracin zinc 500 unit/gram ointment 1 applic TOPICAL QAM PRN (Reason: Skin Irritation) cyanocobalamin (vitamin B-12) [Vitamin B-12] 500 mcg Tablet 1,000 mcg PO DAILY Rx Instructions: 1200 clotrimazole 1 % cream 1 applic TOPICAL BID PRN (Reason: SKIN IRRITATION ON CHEST) cholecalciferol (vitamin D3) [Vitamin D3] 25 mcg (1,000 unit) Capsule 50 mcg PO QDL furosemide 40 mg tablet 40 mg PO QAM lidocaine HCl 2 % jelly 1 applic topical DIRECTED PRN (Reason: BOWEL PROGRAM) spironolactone 25 mg tablet 25 mg PO QAM lidocaine 5 % adhesive patch,medicated 1 patch transdermal ONAMOFFPM PRN (Reason: Back Pain) nitroglycerin 400 mcg/spray spray,non-aerosol 1 spray translingual UD PRN (Reason: Chest Pain) nystatin 100,000 unit/gram powder 1 applic TOPICAL BID PRN (Reason: Skin Irritation) ramipril 10 mg capsule 10 mg PO BID baclofen 10 mg tablet 10 mg PO QID PRN (Reason: MUSCLE SPASMS) pregabalin 225 mg capsule 225 mg PO BID desonide 0.05 % Cream 1 applic TOPICAL BID PRN (Reason: SKIN IRRITATION ON FACE) magnesium oxide 420 mg Tablet 420 mg PO DAILY Label Comments: 1200 ketoconazole 2 % Shampoo 1 ea TOPICAL 2XWK dantrolene 25 mg Capsule 25 mg PO TID cetirizine [Zyrtec] 10 mg Tablet 10 mg PO QAM carboxymethylcellulose sodium 0.5 % Drops 1 drp OPL QID lorazepam 1 mg Tablet 1 mg PO BID PRN (Reason: MUSCLE SPASMS) clobetasol 0.05 % Solution 1 applic TOPICAL BID PRN (Reason: EAR DERMATITIS) Hemorrhoidal Cream 0.25-1 % Cream 1 applic KS HS PRN (Reason: Hemorrhoids) Renacidin 1,980.6 mg-59.4 mg-980.4mg/30mL Solution 30 ml irrigation DAILY PRN (Reason: NEEDED) Rx Instructions: IRRIGATE BLADDER AND CLAMP CATH FOR 15-20 MIN. pitavastatin magnesium 4 mg Tablet 4 mg PO HS Saline Nasal 0.65 % Aerosol,[place] 1 spray INTRANASAL Q2H PRN (Reason: NASAL DRYNESS) benzonatate 100 mg capsule 100 mg PO TID PRN (Reason: cough) Qty: 15 0RF hydrocodone-acetaminophen 5-325 mg Tablet 1 tab PO TID Ozempic 1 mg/dose (2 mg/1.5 mL) Pen Injector 1 mg SUBCUT WK Label Comments: tuesdays Minie Ememez Plus 1 dose KS QAM Discontinued ibuprofen 400 mg tablet 400 mg PO Q8H PRN (Reason: Pain) Discharge Orders: Discharge Order (Routine); Ordered 10/13/22 Ordered By: Barry Almaraz Admission Data Admit Date/Time: 10/07/22 13:27 Attending Provider: Barry Almaraz Admit Provider: Barry Almaraz Primary Care Provider: Fransico Mccoy Other Providers: Robert Ortega ; [facility] ; [facility] ; Reginaldo Nova Other Interventions: Discharge Summary Assessment (RN) Last Done: 10/13/22 14:29
== END 2022-10-13 14:40 | DRG 460 ==
LOC: ASU 08:37 → 3E 13:27

== ENCOUNTER 2022-11-04 16:08 | Inpatient (IN) ==
[2022-11-04 17:25] LABS: Basophils # (auto) 0.01 K/uL (0-0.2); Basophils % (auto) 0.3 %; Hematocrit (blood only) 34.3 % (40.1-51.0); Hemoglobin 11.4 g/dl (14.0-18.0); Immature Granulocytes # (auto) 0.02 K/uL (0.00-0.02); Immature Granulocytes % (auto) 0.6 %; Lymphocytes # (auto) 0.71 K/uL (1.2-3.4); Lymphocytes % (auto) 21.6 %; Mean Corpuscular Hemoglobin 28.9 pg (25.0-34.0); Mean Corpuscular Hgb Conc 33.2 g/dL (32.0-36.0); Mean Corpuscular Volume 86.8 fL (80.0-100.0); Mean Platelet Volume 11.2 fL (9.4-12.4); Monocytes # (auto) 0.72 K/uL (0.24-0.82); Monocytes % (auto) 21.9 %; Neutrophils # (auto) 1.73 K/uL (1.4-6.5); Neutrophils % (auto) 52.6 %; Platelet Count 194 K/uL (130-400); RDW Standard Deviation 48.1 fL (36.4-46.3); Red Blood Count 3.95 M/uL (4.63-6.08); White Blood Count 3.29 K/ul (4.8-10.8)
--- NOTE | 2022-11-04 17:54 | Emergency Department Note ---
Impression & Plan Weakness, Back pain, Acute UTI, Fever, Hallucinations ED Provider Note Provider: Triston Brsicoe MD DATE OF SERVICE: 11/04/2022 CHIEF COMPLAINT: Back and groin pain with chills and fever HISTORY OF PRESENT ILLNESS: Patient is a 67-year-old gentleman extensive past medical history including type 2 diabetes, suprapubic Izquierdo for neurogenic bladder, CAD, and thoracic spine [facility] and having pain in the neck and groin developing over the past week. Patient as well as provide history. Reports some increased auditory loose [place] last night and sounds which has worsened some since the surgery. Some pain across the upper back with some shooting pain around the chest has been present since the surgery. Had suprapubic catheter changed and blood work as an outpatient this past week. Has been using ibuprofen and Tylenol at home for symptom control but having spikes of fevers at various times. Denies significant sore throat or cough. Reports that uses oxygen at night and has required a little bit of oxygen at times during the day. She states it seems like he is having some autonomic dysfunction and is not eating or drinking as much. Urine is more concentrated. No rashes or wounds reported. Increased muscle spasms at times. PAST MEDICAL HISTORY: As noted above MEDICATIONS: Reviewed home medications SOCIAL HISTORY: Lives at home with PHYSICAL EXAM: Fatigued in appearance GENERAL: alert and oriented in no acute distress on stretcher Head: normocephalic and atraumatic EYES: No injection, discharge or icterus. NECK: Trachea midline. Supple. ENT: Mucous membranes pink and moist. LUNGS: Airway patent. No retractions. Breath sounds clear anteriorly. HEART: Regular rate and rhythm. Some mild diffuse chest wall tenderness ABDOMEN: Soft and non-tender, without guarding or rebound. Suprapubic catheter. BACK: Patient with some mild diffuse pain of the upper back. SKIN: Acyanotic, warm, dry, without rashes EXTREMITIES: Without swelling, tenderness or deformity NEUROLOGICAL: No aphasia. No facial droop or slurred speech. Paraplegic in the lower extremities EK bpm normal sinus rhythm without acute ST segment elevation or depression without PAC or PVC noted. QTc 423. CONTINUOUS CARDIAC MONITORING: was ordered and showed a heart rate of 70s-90s bpm in normal sinus rhythm PDMP was checked without noted issue. Patient's laboratory studies and imaging reviewed. Differential includes Infection, dehydration, metabolic abnormality, hypo/hyperglycemia, electrolyte disturbance, anemia, hypoxia, cardiac sources, intracerebral event, neurologic, as well as other pathologies. IMPRESSION/MEDICAL DECISION MAKING: Reported intermittent fever and chills. History unfortunately of paraplegia as well as recent spinal surgery. Some autonomic dysfunction seems likely. Afebr ile here. No new trauma likely reported. Patient and provide history but decreased intake and had some increased hallucinations recently. Basic blood work change here. Slightly improved mild anemia. Slight leukopenia. Slight hyponatremia. Renal function not far off baseline at 0.73 from baseline around 0.4. Given some IV fluid is here does appear a bit concentrated. Has suprapubic catheter. We will send this for culture. COVID flu and RSV testing negative. Not significantly having abdominal discomfort. Does report some shooting pain around the chest as well as some pain in the upper thoracic back region. Did recently have surgery. At times having some low oxygen numbers a ccording to . Reviewing the prior medical records here appears he had some transient episodes of this while he was in the hospital as well. We will complete a CT of the chest to exclude pneumonia as well as pulmonary embolism given his decreased mobility status. CT of the thoracic spine to be completed as well and given the reported some hallucinations a CT of the head. does report that some component of the hallucinations may be chronic but are recently exacerbated. Not doing well at home. Did have a a fever on reevaluation here. Given Tylenol. CT head, thoracic spine, and chest with contrast without evidence of PE, fracture, or acute intracranial abnormality per radiology report. Urinalysis concerning for infection. We will have sent for culture to know for sure but gi priscila his fevers chills and increased fatigue and decreased output discussed with further care here at the hospital. Based on prior cultures which were reviewed given a dose of ceftriaxone. Again does not appear grossly septic received IV fluid hydration. Patient resting now. Hospitalist contacted. DIAGNOSIS: Acute UTI, back pain, fevers, weakness, history of paraplegia, hallucinations DISPOSITION: Hospitalist will evaluate Patient was agreeable with this plan. 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 Depression Diabetes mellitus, type 2 NIDDM 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 moderately enlarged 4.4 cm GERD (gastroesophageal reflux disease) controlled, stable per pt History of COVID-19 10/18/20>hospitalized for SBO, COVID symptoms resolved History of intestinal obstruction NO SURGERY REQUIRED History of pressure ulcer NOTHING CURRENT NOW>"NOTHING OPENED, REDNESS ONLY" Hyperlipidemia Hypertension controlled, stable per pt Morbid obesity Myocardial Infarction X4 - LAST WAS 2011 Neurogenic bladder indwelling supra-pubic catheter Neurogenic bowel see med list for bowel regimen Pacemaker [employer]; 12/03 SYMPTOMATIC BRADYCARDIA- LAST PACER CHECK/STACY 08/13/22 Paralysis PARLYSIS/PARATHESIA OF B/L LOWER EXTREMITIES FOLLOWING LOWER THORACIC INTERBODY FUSION 11/2017 Renal lesion new 1.6 cm enhancing cortical lesion suggested in the interpolar left kidney. This is highly suspicious for renal cell carcinoma, and follow-up with urology is recommended-they report monitoring CT in [address] Bran Nova with [facility] Rotator cuff tear rt Sleep apnea CPAP RECALLED>USING O2 AT 2L HS 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 Suprapubic catheter Surgical History Fusion of spine T9-T11 Removal of Hardware, T5-T11 Decompression and Fusion: 12/13/18: Grade view 1, MAC#3, ETT 8.5 at [facility] "fused from T6-S1" T9-T12 Grade 1 view, MAC 3, ETT 8 11/22/17: "...no voluntary movement in his lower extremities...no sensation noted below approx inguinal ligament bilat...to be monitored on med-surgical floor...Dr. Almaraz will start...stero id protocol..." H/O sinus surgery History of arthroscopic surgery of shoulder X2 (LEFT) 09/20/15 LMA 5 + PNB. Post-op note: "...in the PACU he was initially hypertensive with BP 170s/110s...given labetalol and hydralazine...now 140s/80s...HR remained in the 60s to 70s...SpO2 has been in the high 90s..." History of back surgery X4 History of cardiac cath X15; TOTAL OF 6 STENTS (STENT PLACED LAST 2011) History of cardiac pacemaker History of cholecystectomy History of cystoscopy History of gastric bypass GASTRIC SLEEVE PROCEDURE History of tonsillectomy and adenoidectomy History of tooth extraction History of total knee replacement B/L S/P cervical spinal fusion C5-6 limited rom S/P UPPP (uvulopalatopharyngoplasty) Status post insertion of intrathecal baclofen pump May 2020-Prometra pump at [facility] Family History Other No family history of adverse response to anesthesia Social History Smoking Status: Former smoker Tobacco Type: Cigarettes Second Hand Exposure: Yes ( A CHILD); Do You Dip or Chew Tobacco: No; Hx Alcohol Use: No Hx Substance Use: No Preferred Language: Spanish Communication Ability: Effective Visual Impairment: No Limitations Hearing Ability: Normal Foreign Student Adviser Required: No Beliefs That Will Affect Care: Christian Christian Beliefs: YAZIDISM marital status: Current Living Situation: Spouse Current Living Situation Comment: is resident care spec current occupational status: retired Feels Safe at Home: Yes Safety Concerns: Feels Safe At This Time Assistive Devices: Glasses, Mechanical Lift, Oxygen - at Night and Wheelchair Allergies Allergies Allergy/AdvReac Type Severity Reaction Status Date / Time erythromycin base Allergy Severe Anaphylaxis Verified 10/07/22 09:38 Fish Containing Products Allergy Severe THROAT Verified 10/07/22 09:38 SWELLS loratadine Allergy Severe BREATHING Verified 10/07/22 09:38 DIFFICULTY shellfish derived Allergy Severe throat Verified 10/07/22 09:38 gets scratchy diphenhydramine Allergy Intermediate HIVES Verified 10/07/22 09:38 Macrolide Antibiotics Allergy Intermediate E-MYCIN=HIVES; Verified 10/07/22 09:38 "MYCINS"--JAUNDICE rofecoxib AdvReac Severe CHEST PAIN Verified 10/07/22 09:38 zolpidem AdvReac Severe NIGHTMARES Verified 10/07/22 09:38 oxycodone AdvReac Intermediate TERRIBLE Verified 10/07/22 09:38 DREAMS,DISORIENTATION Home Meds Home Medications Medication Instructions Recorded Confirmed calcium carbonate 500 mg-vitamin 1 tab PO BID 12/05/18 11/04/22 D3 5 mcg (200 unit) tablet (Calcium 500 + D) clopidogrel 75 mg tablet (Plavix) 75 mg PO QAM 12/05/18 11/04/22 coenzyme Q10 100 mg capsule 100 mg PO HS 12/05/18 11/04/22 (CoQ-10) docusate sodium 100 mg tablet 100 mg PO TID 12/05/18 11/04/22 fluticasone propionate 50 1 spray intranasal QAM PRN Nasal 12/05/18 11/04/22 mcg/actuation nasal Congestion spray,suspension (Flonase Allergy Relief) multivitamin 1 tab PO QAM 12/05/18 11/04/22 nitroglycerin 0.4 mg sublingual 1 tab sublingual UD PRN Chest Pain 12/05/18 11/04/22 tablet (Nitrostat) duloxetine 60 mg capsule,delayed 60 mg PO HS 12/06/18 11/04/22 release sennosides 8.6 mg tablet 8.6 mg PO BID 12/06/18 11/04/22 trazodone 50 mg tablet 25 mg PO HS 12/06/18 11/04/22 omeprazole 20 mg capsule,delayed 20 mg PO BID 04/15/20 11/04/22 release metformin 1,000 mg tablet 1,000 mg PO BID 07/02/20 11/04/22 lidocaine 5 % topical ointment 1 applic topical Q6H FOOT & BACK 07/10/20 11/04/22 PAIN mirabegron 50 mg tablet,extended 50 mg PO QAM 07/10/20 11/04/22 release 24 hr (Myrbetriq) bisacodyl 10 mg rectal suppository 10 mg PA QAM PRN Constipation 09/24/20 11/04/22 (Dulcolax (bisacodyl)) polyethylene glycol 3350 17 17 g PO HS 09/24/20 11/04/22 gram/dose oral powder (Miralax) tizanidine 4 mg capsule 4 mg PO TID 09/24/20 11/04/22 aspirin 81 mg tablet,delayed 81 mg PO HS 10/30/20 11/04/22 release alendronate 70 mg tablet 70 mg PO WK 02/13/22 11/04/22 bacitracin zinc 500 unit/gram 1 applic topical QAM PRN Skin 02/13/22 11/04/22 topical ointment Irritation carvedilol 12.5 mg tablet 6.25 mg PO BID 02/13/22 11/04/22 cholecalciferol (vitamin D3) 25 50 mcg PO QDL 02/13/22 11/04/22 mcg (1,000 unit) capsule (Vitamin D3) clotrimazole 1 % topical cream 1 applic topical BID PRN SKIN 02/13/22 11/04/22 IRRITATION ON CHEST cyanocobalamin (vitamin B-12) 500 1,000 mcg PO DAILY 02/13/22 11/04/22 mcg tablet (Vitamin B-12) furosemide 40 mg tablet 40 mg PO QAM 02/13/22 11/04/22 lidocaine 5 % topical patch 1 patch transdermal ONAMOFFPM PRN 02/13/22 11/04/22 Back Pain lidocaine HCl 2 % mucosal jelly 1 applic topical DIRECTED PRN 02/13/22 11/04/22 BOWEL PROGRAM nitroglycerin 400 mcg/spray 1 spray translingual UD PRN Chest 02/13/22 11/04/22 translingual Pain nystatin 100,000 unit/gram topical 1 applic topical BID PRN Skin 02/13/22 11/04/22 powder Irritation ramipril 10 mg capsule 10 mg PO BID 02/13/22 11/04/22 spironolactone 25 mg tablet 25 mg PO QAM 02/13/22 11/04/22 baclofen 10 mg tablet 10 mg PO QID PRN MUSCLE SPASMS 02/14/22 11/04/22 pregabalin 225 mg capsule 225 mg PO BID 02/14/22 11/04/22 carboxymethylcellulose sodium 0.5 1 drp OPL QID 04/22/22 11/04/22 % eye drops cetirizine 10 mg tablet (Zyrtec) 10 mg PO QAM 04/22/22 11/04/22 citric ac 1980.6 mg-glucono 59.4 30 ml irrigation DAILY PRN 04/22/22 11/04/22 mg-mag carb 980.4 mg/30 mL NEEDED irrig.soln (Renacidin) clobetasol 0.05 % scalp solution 1 applic topical BID PRN EAR 04/22/22 11/04/22 DERMATITIS dantrolene 25 mg capsule 25 mg PO TID 04/22/22 11/04/22 desonide 0.05 % topical cream 1 applic topical BID PRN SKIN 04/22/22 11/04/22 IRRITATION ON FACE magnesium oxide 420 mg tablet 420 mg PO DAILY 04/22/22 11/04/22 phenylephrine 0.25 %-pramoxine 1 1 applic PA HS PRN Hemorrhoids 04/22/22 11/04/22 %-glycerin-wh.petrolatum rectal cream (Hemorrhoidal Cream) pitavastatin magnesium 4 mg tablet 4 mg PO HS 04/22/22 11/04/22 sodium chloride 0.65 % nasal spray 1 spray intranasal Q2H PRN NASAL 04/22/22 11/04/22 aerosol (Saline Nasal) DRYNESS Minie Ememez Plus 1 dose PA QAM 09/02/22 11/04/22 hydrocodone 10 mg-acetaminophen 1 tab PO Q4 PRN Pain 11/04/22 11/04/22 325 mg tablet semaglutide 1 mg/dose (2 mg/1.5 1 mg subcut WK 11/04/22 11/04/22 mL) subcutaneous pen injector (Ozempic) Previous Rx's Medication Instructions Recorded benzonatate 100 mg capsule 100 mg PO TID PRN cough #15 caps 04/22/22 Results & Data (ED) Vital Signs Vital Signs - 24 hr 11/04/22 16:10 11/04/22 18:08 Temperature 36.8 C 38.1 C H Temperature Source Temporal Artery Scan Oral Pulse Rate 86 Pulse Rhythm Regular Respiratory Rate 20 16 Respiratory Effort / Characteristics Non-Labored Spontaneous Respiratory Depth Normal Blood Pressure 109/71 Blood Pressure [Left Arm] 121/71 Blood Pressure Mean 83 Blood Pressure Mean [Left Arm] 87 Pulse Oximetry 94 94 Oxygen Delivery Method Room Air Room Air Sepsis Recent Fever Within 48 Hours No Sepsis New/Unexplained Change in Mental Status No Sepsis Action Taken by Nursing No Action Required Laboratory Data 11/04/22 17:06 11/04/22 17:06 Lab Results 11/04/22 11/04/22 11/04/22 Range/Units 17:06 17:06 17:06 WBC 3.29 L (4.8-10.8) K/ul RBC 3.95 L (4.63-6.08) M/uL Hgb 11.4 L (14.0-18.0) g/dl Hct 34.3 L (40.1-51.0) % MCV 86.8 (80.0-100.0) fL MCH 28.9 (25.0-34.0) pg MCHC 33.2 (32.0-36.0) g/dL RDW Std Deviation 48.1 H (36.4-46.3) fL RDW Coeff of Jimi 15.0 H (11.5-14.5) % Plt Count 194 (130-400) K/uL MPV 11.2 (9.4-12.4) fL Immature Gran % (Auto) 0.6 % Neut % (Auto) 52.6 % Lymph % (Auto) 21.6 % [place] % (Auto) 21.9 % Eos % (Auto) 3.0 % Baso % (Auto) 0.3 % Neut # (Auto) 1.73 (1.4-6.5) K/uL Lymph # (Auto) 0.71 L (1.2-3.4) K/uL Montgomery # (Auto) 0.72 (0.24-0.82) K/uL Eos # (Auto) 0.10 (0-0.50) K/uL Baso # (Auto) 0.01 (0-0.2) K/uL Immature Gran # (Auto) 0.02 (0.00-0.02) K/uL Sodium 132 L (136-145) mmol/L Potassium 4.5 (3.5-5.1) mmol/L Chloride 95 L (98-107) mmol/L Carbon Dioxide 27 (21-32) mmol/L Anion Gap 10 (3-11) BUN 23 (6-23) mg/dl Creatinine 0.73 (0.6-1.4) mg/dl Est Cr Clr Drug Dosing Not Reportable Est GFR ( Amer) 111.2 ml/min Est GFR (Non-Af Amer) 96.0 ml/min BUN/Creatinine Ratio 31.5 H (10-20) Glucose 106 H (70-99(Fasting)) mg/dl Calcium 8.3 L (8.5-10.1) mg/dl Total Bilirubin 0.5 (0.2-1.0) mg/dl AST 27 (13-39) U/L ALT 21 (7-52) U/L Alkaline Phosphatase 78 (34-104) U/L Troponin I High Sens 7.6 (0-20) pg/ml Total Protein 6.6 (6.0-8.3) gm/dl Albumin 3.5 (3.4-5.0) gm/dl Globulin 3.1 (2.5-4.0) gm/dl Albumin/Globulin Ratio 1.1 (0.9-2) Administered Medications Discontinued Medications Acetaminophen (Acetaminophen 500 Mg Tab) 1,000 mg PO NOW STA Stop: 11/04/22 18:12 Last Admin: 11/04/22 18:23 Dose: 1,000 mg Documented By: KT Sodium Chloride (Nss 1000ml) 1,000 mls @ 999 mls/hr IV .Q1H1M ONE Stop: 11/04/22 19:09 Last Infusion: 11/04/22 20:30 Dose: 0 mls/hr Documented By: Admin: 11/04/22 18:23 Dose: 999 mls/hr Documented By: KT Ceftriaxone Sodium (Rocephin) 2,000 mg in 70 mls @ 140 mls/hr IV NOW STA Stop: 11/04/22 21:34 Last Admin: 11/04/22 23:01 Dose: 140 mls/hr Documented By: EVARISTO Ioversol (Optiray 320 500ml) 108 ml IV ONCE ONE Stop: 11/04/22 18:54 Last Admin: 11/04/22 18:53 Dose: 108 ml Documented By: ZHEN Imaging Data Radiologist's Impression: Chest CTA 11/04/22 18:08 CT angio chest PE protocol, CT thoracic spine w con CLINICAL HISTORY: PE, fevers, recent thoracic surg, cp TECHNIQUE: Multidetector row helical CT of the chest was performed with angiog raphic protocol. Coronal and sagittal reformations were obtained. Coronal and sagittal MIPS were obtained from the axial data set and were submitted for review. Automated dose lowering techniques and/or adjustment according to patient size were utilized for this exam. CT DOSE: 1942.48 mGy.cm Comparison: Comparison is made to CTA chest 04/22/2022 FINDINGS: Lungs and pleura: Normal. Heart and pericardium: Heart size is normal. No pericardial effusion. Vessels: No evidence of pulmonary embolism. Mediastinum and pamela: Unremarkable. Chest wall and lower neck: Unremarkable. Abdomen: A hiatal hernia is seen. Patient is status post gastric bypass surgery. Patient is status post cholecystectomy. Bones: Posterior fixation hardware is seen in the thoracic spine. A spinal stimulator is noted. Incidentally noted, a few right screws appear to terminate in chronically fragmented bones outside the main vertebral body. IMPRESSION: No acute abnormality and in particular no evidence of acute fracture. Posterior fixation hardware is seen in the thoracic spine. ACT 112: Negative or not required by law. Electronically signed by: Fransico Austin M.D. 11/04/2022 7:[address] 11/04/22 18:08 CT head/brain wo con CLINICAL HISTORY: hallucinations Technique: Contiguous axial CT images of the head were acquired from the base of the skull to the vertex without intravenous contrast administration. Images were viewed in brain, subdural and bone windows. Automated dose lowering techniques and/or adjustment according to patient size were utilized for this exam. Comparison: None available at the time of this dictation. Findings: Areas of decreased attenuation are present in the periventricular and subcorti harry white matter bilaterally consistent with small vessel ischemic disease. Generalized cerebral atrophy with commensurate enlargement of the ventricles, sulci, and cisterns is also present. There is no acute intracranial hemorrhage or evidence of acute territorial infarction. No shift of the midline structures, mass effect, or extra-axial abnormalities are shown. Atherosclerotic calcifications are present in the intracranial segments of the internal carotid arteries. Imaged portions of the paranasal sinuses and mastoid air cells are clear. The orbits appear normal. There are no acute fractures of the calvaria or scalp swelling. Impression: No acute intracranial hemorrhage, no evidence of acute territorial infarction or other acute intracranial disease process. ACT 112: Negative or not required by law. Electronically signed by: Fransico Austin M.D. 11/04/2022 7:[address] 11/04/22 18:08 CT angio chest PE protocol, CT thoracic spine w con CLINICAL HISTORY: PE, fevers, recent thoracic surg, cp TECHNIQUE: Multidetector row helical CT of the chest was performed with angiographic protocol. Coronal and sagittal reformations were obtained. Coronal and sagittal MIPS were obtained from the axial data set and were submitted for review. Automated dose lowering techniques and/or adjustment according to patient size were utilized for this exam. CT DOSE: 1942.48 mGy.cm Comparison: Comparison is made to CTA chest 04/22/2022 FINDINGS: Lungs and pleura: Normal. Heart and pericardium: Heart size is normal. No pericardial effusion. Vessels: No evidence of pulmonary embolism. Mediastinum and pamela: Unremarkable. Chest wall and lower neck: Unremarkable. Abdomen: A hiatal hernia is seen. Patient is status post gastric bypass surgery. Patient is status post cholecystectomy. Bones: Posterior fixation hardware is seen in the thoracic spine. A spinal stimulator is noted. Incidentally noted, a few right screws appear to terminate in chronically fragmented bones outside the main vertebral body. IMPRESSION: No acute abnormality and in particular no evidence of acute fracture. Posterior fixation hardware is seen in the thoracic spine. ACT 112: Negative or not required by law. Electronically signed by: Fransico Austin M.D. 11/04/2022 7:10 PM Discharge Plan Visit Data Chief Complaint: Flu Like Symptoms Stated Complaint: FEVER, CHILLS ED Provider: Triston Briscoe Discharge Problem: Weakness, Back pain, Acute UTI, Fever, Hallucinations Patient Disposition: Being Evaluated by Hospitalist Discharge Instructions Interventions: ED Discharge Assessment Last Done: 11/05/22 00:17 : Back pain Qualifiers: Back pain location: thoracic back pain Chronicity: acute Back pain laterality: bilateral Qualified Code(s): M54.6 - Pain in thoracic spine Fever Qualifiers: Fever type: unspecified Qualified Code(s): R50.9 - Fever, unspecified
[2022-11-04 17:56] LABS: Alanine Aminotransferase 21 U/L (7-52); Albumin Globulin Ratio 1.1 (0.9-2); Albumin Level 3.5 gm/dl (3.4-5.0); Alkaline Phosphatase 78 U/L (34-104); Anion Gap 10 (3-11); Aspartate Aminotransferase 27 U/L (13-39); BUN Creatinine Ratio 31.5 (10-20); Bilirubin,Total 0.5 mg/dl (0.2-1.0); Blood Urea Nitrogen 23 mg/dl (6-23); Calcium 8.3 mg/dl (8.5-10.1); Carbon Dioxide 27 mmol/L (21-32); Chloride 95 mmol/L (98-107); Est GFR (African American) 111.2 ml/min; Globulin 3.1 gm/dl (2.5-4.0); Glucose 106 mg/dl (70-99(Fasting)); Potassium 4.5 mmol/L (3.5-5.1); Sodium 132 mmol/L (136-145); Total Protein 6.6 gm/dl (6.0-8.3)
[2022-11-04 18:05] LABS: Influenza A virus by PCR Negative (Neg); Influenza B virus by PCR Negative (Neg); RSV by PCR Negative (Neg); SARS CoV2 RNA(COVID-19) Ceph NEGATIVE (Negative)
[2022-11-04] MEDS ORDERED: SODIUM CHLORIDE 0.9% 1000ML 1,000 ML IV ONE (18:09)
[2022-11-04] MEDS ORDERED: ACETAMINOPHEN 500 MG TAB PO STA (18:11)
[2022-11-04] MEDS ORDERED: OPTIRAY 320 500ml IV ONE (18:53)
--- NOTE | 2022-11-04 19:04 | CT Scan Report ---
CT head/brain wo con CLINICAL HISTORY: hallucinations Technique: Contiguous axial CT images of the head were acquired from the base of the skull to the papo tamera without intravenous contrast administration. Images were viewed in brain, subdural and bone [facility]. Automated dose lowering techniques and/or adjustment according to patient size were utilized for this exam. Comparison: None available at the time of this dictation. Findings: Areas of decreased attenuation are present in the periventricular and subcortical white matter bilate rally consistent with small vessel ischemic disease. Generalized cerebral atrophy with commensurate e nlargement of the ventricles, sulci, and cisterns is also present. There is no acute intracranial hem orrhage or evidence of acute territorial infarction. No shift of the midline structures, mass effect, or extra-axial abnormalities are shown. Atherosclerotic calcifications are present in the intracran ial segments of the internal carotid arteries. Imaged portions of the paranasal sinuses and mastoid air cells are clear. The orbits appear normal. There are no acute fractures of the calvaria or scalp swelling. Impression: No acute intracranial hemorrhage, no evidence of acute territorial infarction or other acute intracra nial disease process. ACT 112: Negative or not required by law. Electronically signed by: Fransico Austin M.D. 11/04/2022 7:02 PM
--- NOTE | 2022-11-04 19:12 | CT Scan Report ---
CT angio chest PE protocol, CT thoracic spine w con CLINICAL HISTORY: PE, fevers, recent thoracic surg, cp TECHNIQUE: Multidetector row helical CT of the chest was performed with angiographic protocol. Iraheta l and sagittal reformations were obtained. Coronal and sagittal MIPS were obtained from the axial bejnamin a set and were submitted for review. Automated dose lowering techniques and/or adjustment according to patient size were utilized for this exam. CT DOSE: 1942.48 mGy.cm Comparison: Comparison is made to CTA chest 04/22/2022 FINDINGS: Lungs and pleura: Normal. Heart and pericardium: Heart size is normal. No pericardial effusion. Vessels: No evidence of pulmonary embolism. Mediastinum and pamela: Unremarkable. Chest wall and lower neck: Unremarkable. Abdomen: A hiatal hernia is seen. Patient is status post gastric bypass surgery. Patient is status po st cholecystectomy. Bones: Posterior fixation hardware is seen in the thoracic spine. A spinal stimulator is noted. Incid entally noted, a few right screws appear to terminate in chronically fragmented bones outside the rosa isela n vertebral body. IMPRESSION: No acute abnormality and in particular no evidence of acute fracture. Posterior fixation hardware is seen in the thoracic spine. ACT 112: Negative or not required by law. Electronically signed by: Fransico Austin M.D. 11/04/2022 7:10 PM
[2022-11-04 20:06] LABS: Appearance Urine Cloudy (Clear); Bacteria Urine Automated 2+ (Negative); Bilirubin Urine Negative (Negative); Blood Urine 1+ (Negative); Color Urine Yellow; Glucose Urine UA Negative (Negative); Ketones Urine Negative (Negative); Leukocyte Esterase Urine 3+ (Negative); Nitrite Urine Positive (Negative); Protein Urine Negative (Negative); Specific Gravity Urine > 1.045 (1.000-1.030); Urobilinogen Urine Negative (Negative); WBC Urine Automated >30 /hpf (0-5)
--- NOTE | 2022-11-04 20:43 | History & Physical Report ---
Date of Service November 04, 2022 Assessment & Plan (1) UTI (urinary tract infection): Plan: - One week of groin pain, fevers, confusion, auditory hallucinations (chronically an issue, have been worse this week). - Has suprapubic catheter due to neurogenic bladder/paralysis. - WBC 3.29 - UA with 3+ leuk esterase, nitrites, > 30 WBCs, bacteria. - Urine culture pending. - Review of prior urine cultures dating back to 2018 reveal E coli growth susceptible to Rocephin, will start 2g daily. (2) Type 2 diabetes mellitus: Plan: - Home meds--> metformin, Ozempic. Hold while inpatient. - Weight based SSI, accuchecks ACHS. (3) CAD (coronary artery disease): Plan: - History of multiple ZOFIA placement including PCI of the LAD, unstable angina 2002 s/p PCI to RCA, and catheterization August 2012 with PCI to LAD - Negative dobutamine stress echo/EKG in September. - Continue Plavix + ASA. - Continue amlodipine, HCTZ, metoprolol, spironolactone - Ramipril switched to enalapril per hospital formulary. (4) A-fib: Plan: - Atrial paced, not on anticoagulation as outpatient. - Continue metoprolol. - Currently rate controlled. (5) Hypertension: Plan: - Continue carvedilol, spironolactone, switch ramipril to lisinopril per hospital formulary. (6) Aortic insufficiency: Plan: - Noted, stable. (7) Aortic aneurysm: Plan: - Noted, stable. Follows with vascular. (8) Paralysis: Plan: - Continue home medications for pain, muscle spasms. (9) Neurogenic bladder: Plan: - Suprapubic catheter. - UTI management as above. (10) GERD (gastroesophageal reflux disease): Plan: - Continue PPI, omeprazole switched to pantoprazole per hospital formulary. (11) DENICE (obstructive sleep apnea): Plan: - Patient refuses CPAP at night, prefers NC--wear 2L with sleep. (12) Depression: Plan: - Continue duloxetine at night, trazodone at night. Plan - Admit to medicine with telemetry. - SCDs, Lovenox for VTE ppx. - DNR/DNI. History of Present Illness Chief Complaint: fevers groin pain, auditory hallucinations x 1 week Primary Care Provider: Fransico Yost MD Chuck Snyder is a 67-year-old male with past medical history significant for thoracic spinal stenosis s/p surgery 10/11, paralysis, neurogenic bladder, DENICE, CAD, A. fib, aortic insufficiency, aortic aneurysm, pacemaker placement, DM2, hyperlipidemia, GERD, hypertension, depression who is presenting today with groin pain and fever over the past week. Patient had back surgery with Dr. Almaraz 10/07 and reports night sweats since discharge, had been worse over the past week since around New Year'. He has not had any reported fevers at home but is having some night sweats soaking his clothes, with intermittent chills. He is also complaining of bilateral groin pain. He has home health nurses, he recently noted that his urine had a foul odor and had sediment. He changed his suprapubic catheter and collected a urinalysis, which apparently was thought suspicious for infection. He is presenting today as the groin pain, night sweats, and chills have continued and he is starting to have acute exacerbation of his chronic auditory hallucinations. On presentation to ED, he had a temperature of 100.5 F, otherwise vital signs within normal limits and stable. UA appears infected with nitrites, leuk esterase, WBCs, and bacteria. Labs notable for leukopenia and chronic, stable anemia. Sodium 132, calcium 8.3. No other electrolyte abnormalities. Renal and hepatic function at baseline. COVID/flu/RSV negative. Chest CTA, head CT, thoracic spine CT all unremarkable. Allergies Allergy/AdvReac Type Severity Reaction Status Date / Time erythromycin base Allergy Severe Anaphylaxis Verified 10/07/22 09:38 Fish Containing Products Allergy Severe THROAT Verified 10/07/22 09:38 SWELLS loratadine Allergy Severe BREATHING Verified 10/07/22 09:38 DIFFICULTY shellfish derived Allergy Severe throat Verified 10/07/22 09:38 gets scratchy diphenhydramine Allergy Intermediate HIVES Verified 10/07/22 09:38 Macrolide Antibiotics Allergy Intermediate E-MYCIN=HIVES; Verified 10/07/22 09:38 "MYCINS"--JAUNDICE rofecoxib AdvReac Severe CHEST PAIN Verified 10/07/22 09:38 zolpidem AdvReac Severe NIGHTMARES Verified 10/07/22 09:38 oxycodone AdvReac Intermediate TERRIBLE Verified 10/07/22 09:38 DREAMS,DISORIENTATION Home Medications Medication Instructions Recorded Confirmed Type calcium carbonate 500 mg-vitamin 1 tab PO BID 12/05/18 11/04/22 History D3 5 mcg (200 unit) tablet (Calcium 500 + D) clopidogrel 75 mg tablet (Plavix) 75 mg PO QAM 12/05/18 11/04/22 History coenzyme Q10 100 mg capsule 100 mg PO HS 12/05/18 11/04/22 History (CoQ-10) docusate sodium 100 mg tablet 100 mg PO TID 12/05/18 11/04/22 History fluticasone propionate 50 1 spray intranasal QAM PRN Nasal 12/05/18 11/04/22 History mcg/actuation nasal Congestion spray,suspension (Flonase Allergy Relief) multivitamin 1 tab PO QAM 12/05/18 11/04/22 History nitroglycerin 0.4 mg sublingual 1 tab sublingual UD PRN Chest Pain 12/05/18 11/04/22 History tablet (Nitrostat) duloxetine 60 mg capsule,delayed 60 mg PO HS 12/06/18 11/04/22 History release sennosides 8.6 mg tablet 8.6 mg PO BID 12/06/18 11/04/22 History trazodone 50 mg tablet 25 mg PO HS 12/06/18 11/04/22 History omeprazole 20 mg capsule,delayed 20 mg PO BID 04/15/20 11/04/22 History release metformin 1,000 mg tablet 1,000 mg PO BID 07/02/20 11/04/22 History lidocaine 5 % topical ointment 1 applic topical Q6H FOOT & BACK 07/10/20 11/04/22 History PAIN mirabegron 50 mg tablet,extended 50 mg PO QAM 07/10/20 11/04/22 History release 24 hr (Myrbetriq) bisacodyl 10 mg rectal suppository 10 mg AR QAM PRN Constipation 09/24/20 11/04/22 History (Dulcolax (bisacodyl)) polyethylene glycol 3350 17 17 g PO HS 09/24/20 11/04/22 History gram/dose oral powder (Miralax) tizanidine 4 mg capsule 4 mg PO TID 09/24/20 11/04/22 History aspirin 81 mg tablet,delayed 81 mg PO HS 10/30/20 11/04/22 History release alendronate 70 mg tablet 70 mg PO WK 02/13/22 11/04/22 History bacitracin zinc 500 unit/gram 1 applic topical QAM PRN Skin 02/13/22 11/04/22 History topical ointment Irritation carvedilol 12.5 mg tablet 6.25 mg PO BID 02/13/22 11/04/22 History cholecalciferol (vitamin D3) 25 50 mcg PO QDL 02/13/22 11/04/22 History mcg (1,000 unit) capsule (Vitamin D3) clotrimazole 1 % topical cream 1 applic topical BID PRN SKIN 02/13/22 11/04/22 History IRRITATION ON CHEST cyanocobalamin (vitamin B-12) 500 1,000 mcg PO DAILY 02/13/22 11/04/22 History mcg tablet (Vitamin B-12) furosemide 40 mg tablet 40 mg PO QAM 02/13/22 11/04/22 History lidocaine 5 % topical patch 1 patch transdermal ONAMOFFPM PRN 02/13/22 11/04/22 History Back Pain lidocaine HCl 2 % mucosal jelly 1 applic topical DIRECTED PRN 02/13/22 11/04/22 History BOWEL PROGRAM nitroglycerin 400 mcg/spray 1 spray translingual UD PRN Chest 02/13/22 11/04/22 History translingual Pain nystatin 100,000 unit/gram topical 1 applic topical BID PRN Skin 02/13/22 11/04/22 History powder Irritation ramipril 10 mg capsule 10 mg PO BID 02/13/22 11/04/22 History spironolactone 25 mg tablet 25 mg PO QAM 02/13/22 11/04/22 History baclofen 10 mg tablet 10 mg PO QID PRN MUSCLE SPASMS 02/14/22 11/04/22 History pregabalin 225 mg capsule 225 mg PO BID 02/14/22 11/04/22 History benzonatate 100 mg capsule 100 mg PO TID PRN cough #15 caps 04/22/22 11/04/22 Rx carboxymethylcellulose sodium 0.5 1 drp OPL QID 04/22/22 11/04/22 History % eye drops cetirizine 10 mg tablet (Zyrtec) 10 mg PO QAM 04/22/22 11/04/22 History citric ac 1980.6 mg-glucono 59.4 30 ml irrigation DAILY PRN 04/22/22 11/04/22 History mg-mag carb 980.4 mg/30 mL NEEDED irrig.soln (Renacidin) clobetasol 0.05 % scalp solution 1 applic topical BID PRN EAR 04/22/22 11/04/22 History DERMATITIS dantrolene 25 mg capsule 25 mg PO TID 04/22/22 11/04/22 History desonide 0.05 % topical cream 1 applic topical BID PRN SKIN 04/22/22 11/04/22 History IRRITATION ON FACE magnesium oxide 420 mg tablet 420 mg PO DAILY 04/22/22 11/04/22 History phenylephrine 0.25 %-pramoxine 1 1 applic AR HS PRN Hemorrhoids 04/22/22 11/04/22 History %-glycerin-wh.petrolatum rectal cream (Hemorrhoidal Cream) pitavastatin magnesium 4 mg tablet 4 mg PO HS 04/22/22 11/04/22 History sodium chloride 0.65 % nasal spray 1 spray intranasal Q2H PRN NASAL 04/22/22 11/04/22 History aerosol (Saline Nasal) DRYNESS Minie Ememez Plus 1 dose AR QAM 09/02/22 11/04/22 History hydrocodone 10 mg-acetaminophen 1 tab PO Q4 PRN Pain 11/04/22 11/04/22 History 325 mg tablet semaglutide 1 mg/dose (2 mg/1.5 1 mg subcut WK 11/04/22 11/04/22 History mL) subcutaneous pen injector (Ozempic) 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 Depression Diabetes mellitus, type 2 NIDDM 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 moderately enlarged 4.4 cm GERD (gastroesophageal reflux disease) controlled, stable per pt History of COVID-19 12/18/20>hospitalized for SBO, COVID symptoms resolved History of intestinal obstruction NO SURGERY REQUIRED History of pressure ulcer NOTHING CURRENT NOW>"NOTHING OPENED, REDNESS ONLY" Hyperlipidemia Hypertension controlled, stable per pt Morbid obesity Myocardial Infarction X4 - LAST WAS 2011 Neurogenic bladder indwelling supra-pubic catheter Neurogenic bowel see med list for bowel regimen Pacemaker MEDTRONIC; 2/2 SYMPTOMATIC BRADYCARDIA- LAST PACER CHECK/STACY 08/13/22 Paralysis PARLYSIS/PARATHESIA OF B/L LOWER EXTREMITIES FOLLOWING LOWER THORACIC INTERBODY FUSION 11/2017 Renal lesion new 1.6 cm enhancing cortical lesion suggested in the interpolar left kidney. This is highly suspicious for renal cell carcinoma, and follow-up with urology is recommended-they report monitoring CT in [address] Bran Nova with [facility] Rotator cuff tear rt Sleep apnea CPAP RECALLED>USING O2 AT 2L HS 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 Suprapubic catheter Surgical History Fusion of spine T9-T11 Removal of Hardware, T5-T11 Decompression and Fusion: 12/13/18: Grade view 1, MAC#3, ETT 8.5 at [facility] "fused from T6-S1" T9-T12 Grade 1 view, MAC 3, ETT 8 11/22/17: "...no voluntary movement in his lower extremities...no sensation noted below approx inguinal ligament bilat...to be monitored on med-surgical floor...Dr. Almaraz will start...stero id protocol..." H/O sinus surgery History of arthroscopic surgery of shoulder X2 (LEFT) 09/20/15 LMA 5 + PNB. Post-op note: "...in the PACU he was initially hypertensive with BP 170s/110s...given labetalol and hydralazine...now 140s/80s...HR remained in the 60s to 70s...SpO2 has been in the high 90s..." History of back surgery X4 History of cardiac cath X15; TOTAL OF 6 STENTS (STENT PLACED LAST 2011) History of cardiac pacemaker History of cholecystectomy History of cystoscopy History of gastric bypass GASTRIC SLEEVE PROCEDURE History of tonsillectomy and adenoidectomy History of tooth extraction History of total knee replacement B/L S/P cervical spinal fusion C5-6 limited rom S/P UPPP (uvulopalatopharyngoplasty) Status post insertion of intrathecal baclofen pump May 2020-Prometra pump at [facility] Family History Other No family history of adverse response to anesthesia Social History Smoking Status: Former smoker Tobacco Type: Cigarettes Second Hand Exposure: Yes ( A CHILD); Do You Dip or Chew Tobacco: No; Hx Alcohol Use: No Hx Substance Use: No Preferred Language: [place] Communication Ability: Effective Visual Impairment: No Limitations Hearing Ability: Normal Self Rising Flour Mixer Required: No Beliefs That Will Affect Care: Adventist Adventist Beliefs: JEW marital status: Current Living Situation: Spouse Current Living Situation Comment: is rn complex care current occupational status: retired Feels Safe at Home: Yes Safety Concerns: Feels Safe At This Time Assistive Devices: Mechanical Lift, Oxygen - at Night and Wheelchair Review of Systems Review of Systems: Constitutional: night sweats, chills, confusion x one week; no weakness, fatigue, myalgias, anorexia, night sweats Eyes: No diplopia, no worsening or blurred vision ENT: normal hearing, no trouble swallowing Respiratory: No cough, sputum, dyspnea at rest or on exertion Cardiovascular: No chest pain, tightness or palpitations Abdomen: No pain, nausea, vomiting, diarrhea or constipation : b/l groin pain, foul urine; Denies dysuria, hematuria, increased urgency/frequency, urinary retention Musculoskeletal: No joint pain, calf pain, swelling Neurologic: No weakness, numbness/tingling, or balance problems Psychiatric: more frequent auditory hallucinations; No anxiety or depression Skin: No rash or itch Physical Exam Physical Exam: General: awake, alert, no apparent distress Head: Normocephalic, atraumatic ENT: PERRL, EOMI, no pharyngeal exudate, mucous membranes moist Chest: Clear to auscultation, on room air, no adventitious breath sounds Cardiac: Regular rate and rhythm, no murmur, no JVD, normal peripheral pulses, good capillary refill Abdominal: mild suprapubic pain with palpation; no rebound or guarding; NABS x 4 quadrants, soft Extremities: Normal inspection, no peripheral edema or erythema, calfs nontender to palpation Psych: Normal mood and affect Neuro: AAO x 3, strength intact bilaterally and rated 5/5, no motor deficits, speech is clear, no peripheral sensory deficits Skin: no rash or erythema Results & Data Results & Data ([facility]) Vital Signs (Past 12 Hours) Vital Signs Temp Pulse Resp BP BP Pulse Ox O2 Del Method 11/04/22 18:08 38.1 C H 16 121/71 94 Room Air 11/04/22 16:10 36.8 C 86 20 109/71 94 Room Air Laboratory Results Abnormal lab results 11/04/22 11/04/22 11/04/22 Range/Units 17:06 17:06 Unknown WBC 3.29 L (4.8-10.8) K/ul RBC 3.95 L (4.63-6.08) M/uL Hgb 11.4 L (14.0-18.0) g/dl Hct 34.3 L (40.1-51.0) % RDW Std Deviation 48.1 H (36.4-46.3) fL RDW Coeff of Jimi 15.0 H (11.5-14.5) % Lymph # (Auto) 0.71 L (1.2-3.4) K/uL Sodium 132 L (136-145) mmol/L Chloride 95 L (98-107) mmol/L BUN/Creatinine Ratio 31.5 H (10-20) Glucose 106 H (70-99(Fasting)) mg/dl Calcium 8.3 L (8.5-10.1) mg/dl Urine Appearance Cloudy A (Clear) Urine pH 8.0 H (4.5-7.5) Ur Specific [place] > 1.045 H (1.000-1.030) Urine Blood 1+ H (Negative) Urine Nitrite Positive A (Negative) Ur Leukocyte Esterase 3+ H (Negative) Urine WBC (Auto) >30 H (0-5) /hpf Urine RBC (Auto) 5-10 H (0-4) /hpf U Hyaline Cast (Auto) 5-10 H (0-5) /lpf U Epithel Cells (Auto) 10-20 H (0-5) /lpf Urine Bacteria (Auto) 2+ H (Negative) Diagnostic Findings Chest CTA 11/04/22 18:08 CT angio chest PE protocol, CT thoracic spine w con CLINICAL HISTORY: PE, fevers, recent thoracic surg, cp TECHNIQUE: Multidetector row helical CT of the chest was performed with angiographic protocol. Coronal and sagittal reformations were obtained. Coronal and sagittal MIPS were obtained from the axial data set and were submitted for review. Automated dose lowering techniques and/or adjustment according to patient size were utilized for this exam. CT DOSE: 1942.48 mGy.cm Comparison: Comparison is made to CTA chest 04/22/2022 FINDINGS: Lungs and pleura: Normal. Heart and pericardium: Heart size is normal. No pericardial effusion. Vessels: No evidence of pulmonary embolism. Mediastinum and pamela: Unremarkable. Chest wall and lower neck: Unremarkable. Abdomen: A hiatal hernia is seen. Patient is status post gastric bypass surgery. Patient is status post cholecystectomy. Bones: Posterior fixation hardware is seen in the thoracic spine. A spinal stimulator is noted. Incidentally noted, a few right screws appear to terminate in chronically fragmented bones outside the main vertebral body. IMPRESSION: No acute abnormality and in particular no evidence of acute fracture. Posterior fixation hardware is seen in the thoracic spine. ACT 112: Negative or not required by law. Electronically signed by: Franscio Austin M.D. 11/04/2022 7:[address] 11/04/22 18:08 CT head/brain wo con CLINICAL HISTORY: hallucinations Technique: Contiguous axial CT images of the head were acquired from the base of the skull to the vertex without intravenous contrast administration. Images were viewed in brain, subdural and bone windows. Automated dose lowering techniques and/or adjustment according to patient size were utilized for this exam. Comparison: None available at the time of this dictation. Findings: Areas of decreased attenuation are present in the periventricular and subcortical white matter bilaterally consistent with small vessel ischemic disease. Generalized cerebral atrophy with commensurate enlargement of the ventricles, sulci, and cisterns is also present. There is no acute intracranial hemorrhage or evidence of acute territorial infarction. No shift of the midline structures, mass effect, or extra-axial abnormalities are shown. Atherosclerotic calcifications are present in the intracranial segments of the internal carotid arteries. Imaged portions of the paranasal sinuses and mastoid air cells are clear. The orbits appear normal. There are no acute fractures of the calvaria or scalp swelling. Impression: No acute intracranial hemorrhage, no evidence of acute territorial infarction or other acute intracranial disease process. ACT 112: Negative or not required by law. Electronically signed by: Fransico Austin M.D. 11/04/2022 7:[address] 11/04/22 18:08 CT angio chest PE protocol, CT thoracic spine w con CLINICAL HISTORY: PE, fevers, recent thoracic surg, cp TECHNIQUE: Multidetector row helical CT of the chest was performed with angiographic protocol. Coronal and sagittal reformations were obtained. Coronal and sagittal MIPS were obtained from the axial data set and were submitted for review. Automated dose lowering techniques and/or adjustment according to patient size were utilized for this exam. CT DOSE: 1942.48 mGy.cm Comparison: Comparison is made to CTA chest 04/22/2022 FINDINGS: Lungs and pleura: Normal. Heart and pericardium: Heart size is normal. No pericardial effusion. Vessels: No evidence of pulmonary embolism. Mediastinum and pamela: Unremarkable. Chest wall and lower neck: Unremarkable. Abdomen: A hiatal hernia is seen. Patient is status post gastric bypass surgery. Patient is status post cholecystectomy. Bones: Posterior fixation hardware is seen in the thoracic spine. A spinal stimulator is noted. Incidentally noted, a few right screws appear to terminate in chronically fragmented bones outside the main vertebral body. IMPRESSION: No acute abnormality and in particular no evidence of acute fracture. Posterior fixation hardware is seen in the thoracic spine. ACT 112: Negative or not required by law. Electronically signed by: Fransico Austin M.D. 11/04/2022 7:10 PM ECG Additional Comments: Normal sinus rhythm Cannot rule out Anterior infarct , age undetermined Abnormal ECG When compared with ECG of 07-OCT-2022 14:21, No significant change was found. Code Status & VTE Plan Code Status DNR/DNI. Supervising Physician Co-Signing Physician Notes Attending addendum: I have physically seen this patient, have supervised the [place]'s activities, and agree with the H&P unless as otherwise noted. Assessment and Plan: Urinary tract infection/neurogenic bladder/suprapubic catheter- History of E. coli pansensitive Follow urine culture and sensitivity Empiric ceftriaxone 2 g IV daily Diabetes mellitus- Hold metformin and Ozempic while inpatient Patient Accu-Cheks before meals and at bedtime with NovoLog SSI CAD/atrial fibrillation/hypertension/aortic insufficiency- Telemetry admission Continue metoprolol, carvedilol, spironolactone and change ramipril to lisinopril per hospital formulary Paralysis- Continue routine home medications Remaining orders and notations as noted PG Care Time/CCT Total # of Minutes Spent Total Time Spent with Patient: Total time spent is greater than 50% in coordination of care (as documented) at patient's floor/unit and/or counseling patient: Coding Level of Care Code 67593 INT INP/OBS CARE MIN Diagnoses UTI (urinary tract infection) T83.511D; N39.0 Encounter type: subsequent encounter Indwelling urinary catheter type: unspecified Urinary tract infection type: catheter-associated UTI Type 2 diabetes mellitus E11.9 CAD (coronary artery disease) I25.10 A-fib I48.0 Atrial fibrillation type: paroxysmal Hypertension I10 Hypertension type: essential hypertension Aortic insufficiency I35.1 Aortic aneurysm I71.9 Paralysis G83.9 Neurogenic bladder N31.9 GERD (gastroesophageal reflux disease) K21.9 DENICE (obstructive sleep apnea) G47.33 Depression F32.9 (1) UTI (urinary tract infection) Encounter type: subsequent encounter Indwelling urinary catheter type: unspecified Urinary tract infection type: catheter-associated UTI Qualified Code(s): T83.511D - Infection and inflammatory reaction due to indwelling urethral catheter, subsequent encounter; N39.0 - Urinary tract infection, site not specified (2) A-fib Atrial fibrillation type: paroxysmal Qualified Code(s): I48.0 - Paroxysmal atrial fibrillation (3) Hypertension Hypertension type: essential hypertension Qualified Code(s): I10 - Essential (primary) hypertension
[2022-11-04] MEDS ORDERED: cefTRIAXone SODIUM 2,000 MG/70 ML BAG IV STA (21:05)
[2022-11-04] MEDS ORDERED: ALUMINUM/MAGNESIUM SUSP 30 ML UDC PO PRN (22:01)
[2022-11-04] MEDS ORDERED: FLUTICASONE PROPIONATE NA SPR 16 GM BTL PRN (22:01)
[2022-11-04] MEDS ORDERED: GLUCOSE 40% GEL 15 GM TUBE PO PRN (22:01)
[2022-11-04] MEDS ORDERED: NYSTATIN POWDER 15GM BTL EXT PRN (22:01)
[2022-11-04] MEDS ORDERED: ONDANSETRON INJ 2 MG/ML 2 ML VIAL IV PRN (22:01)
[2022-11-04] MEDS ORDERED: NITROGLYCERIN SL 0.4 MG/TAB TAB SL PRN (22:01)
[2022-11-04] MEDS ORDERED: SODIUM CHLORIDE 0.65% NA SOLN 45 ML (OCEAN) PRN (22:01)
[2022-11-04] MEDS ORDERED: GLUCAGON FOR INJ 1 MG VIAL SQ PRN (22:01)
[2022-11-04] MEDS ORDERED: CLOTRIMAZOLE 1% CR 15 GM TUBE TOP PRN (22:01)
[2022-11-04] MEDS ORDERED: GLUCOSE 10 TAB/TUBE PO PRN (22:01)
[2022-11-04] MEDS ORDERED: DEXTROSE 50% 50 ML SYRINGE IV PRN (22:01)
[2022-11-04] MEDS ORDERED: bisacodyL 10 MG SUPP PR PRN (22:01)
[2022-11-04] MEDS ORDERED: DESONIDE CR 15 GM TUBE EXT PRN (22:01)
[2022-11-04] MEDS ORDERED: BENZONATATE 100 MG CAPSULE PO PRN (22:01)
[2022-11-04] MEDS ORDERED: CARBOHYDRATES FOR HYPOGLYCEMIA PO PRN (22:01)
[2022-11-04] MEDS ORDERED: PHENYLEPH PRAMOXIN GLYCR W PET PR PRN (22:01)
[2022-11-04] MEDS ORDERED: BACITRACIN OINT 15 GM TUBE TOP PRN (23:16)
[2022-11-04] MEDS ORDERED: PNEUMOCOCCAL POLYSACCHARIDES 25 MCG/0.5 ML VIAL/SYR IM ONE (23:41)
[2022-11-05] MEDS: ENOXAPARIN INJ 40 MG/0.4 ML SYR SQ SCH ×3 (01:29→21:55)
[2022-11-05] MEDS: CLOBETASOL 0.05% SCH ×3 (01:31→15:51)
[2022-11-05] MEDS: LIDOCAINE 5% OINT 30 GM TUBE TOP SCH ×3 (05:28→18:23)
[2022-11-05] MEDS: BACLOFEN 10 MG TAB PO PRN ×4 (05:28→22:47)
[2022-11-05 05:49] LABS: Basophils # (auto) 0.02 K/uL (0-0.2); Basophils % (auto) 0.5 %; Eosinophils # (auto) 0.17 K/uL (0-0.50); Eosinophils % (auto) 4.6 %; Hematocrit (blood only) 34.3 % (40.1-51.0); Hemoglobin 11.3 g/dl (14.0-18.0); Immature Granulocytes # (auto) 0.02 K/uL (0.00-0.02); Immature Granulocytes % (auto) 0.5 %; Lymphocytes # (auto) 1.14 K/uL (1.2-3.4); Lymphocytes % (auto) 31.1 %; Mean Corpuscular Hemoglobin 28.9 pg (25.0-34.0); Mean Corpuscular Hgb Conc 32.9 g/dL (32.0-36.0); Mean Corpuscular Volume 87.7 fL (80.0-100.0); Mean Platelet Volume 10.9 fL (9.4-12.4); Monocytes # (auto) 0.96 K/uL (0.24-0.82); Monocytes % (auto) 26.2 %; Neutrophils # (auto) 1.36 K/uL (1.4-6.5); Neutrophils % (auto) 37.1 %; Platelet Count 152 K/uL (130-400); RDW Coefficient of Variation 15.2 % (11.5-14.5); RDW Standard Deviation 48.9 fL (36.4-46.3); Red Blood Count 3.91 M/uL (4.63-6.08); White Blood Count 3.67 K/ul (4.8-10.8)
[2022-11-05 06:20] LABS: Calcium 8.4 mg/dl (8.5-10.1); Creatinine Clr Calc Pharmacy 152.9 ml/min; Est GFR (African American) 122.3 ml/min; Est GFR (Non-African American) 105.5 ml/min
[2022-11-05] MEDS: CETIRIZINE HCL 10 MG TABLET PO SCH (09:25)
[2022-11-05] MEDS: CALCIUM 600MG + VIT D 400 IU TAB PO SCH ×2 (09:25→21:55)
[2022-11-05] MEDS: carvediloL 6.25 MG TAB PO SCH ×2 (09:25→21:55)
[2022-11-05] MEDS: FUROSEMIDE 40 MG TAB PO SCH (09:26)
[2022-11-05] MEDS: DANTROLENE SODIUM 25 MG CAP PO SCH ×3 (09:26→21:55)
[2022-11-05] MEDS: SPIRONOLACTONE 25 MG TAB PO SCH (09:26)
[2022-11-05] MEDS: MIRABEGRON ER 25 MG TAB PO SCH (09:26)
[2022-11-05] MEDS: ENALAPRIL MALEATE 10 MG TAB PO SCH ×2 (09:26→21:55)
[2022-11-05] MEDS: DOCUSATE SODIUM 100 MG CAP PO SCH ×3 (09:26→21:55)
[2022-11-05] MEDS: SENNA 8.6 MG TAB PO SCH ×2 (09:26→21:55)
[2022-11-05] MEDS: PANTOprazole 40 MG TAB PO SCH ×2 (09:26→21:55)
[2022-11-05] MEDS: CLOPIDOGREL BISULFATE 75 MG TAB PO SCH (09:26)
[2022-11-05] MEDS: MAGNESIUM OXIDE 400 MG TAB PO SCH (09:27)
[2022-11-05] MEDS: tiZANidine HCL 4 MG TABLET PO SCH ×3 (09:27→21:55)
[2022-11-05] MEDS: PREGABALIN 75 MG CAP PO SCH ×2 (09:35→22:29)
[2022-11-05] MEDS: LIDOCAINE 5% 1 PATCH TD SCH (09:38)
[2022-11-05] MEDS: INSULIN ASPART PER UNIT SC SCH ×4 (09:40→21:55)
[2022-11-05] MEDS: ARTIFICIAL TEARS OP SCH ×4 (09:56→21:55)
[2022-11-05] MEDS: CYANOCOBALAMIN (B-12) 500 MCG TABLET PO SCH (12:50)
[2022-11-05] MEDS: CHOLECALCIFEROL 1,000 UNITS 25 MCG TAB PO SCH (12:50)
--- NOTE | 2022-11-05 12:58 | Hospitalist Progress Note ---
Date of Service November 05, 2022 Assessment & Plan (1) Sepsis secondary to UTI: Plan: - One week of groin pain, fevers, confusion, auditory hallucinations (chronically an issue, have been worse this week). - Has suprapubic catheter due to neurogenic bladder/paralysis. - WBC 3.29, stable. No fevers overnight, last fever 1/4 at 6pm. - UA with 3+ leuk esterase, nitrites, > 30 WBCs, bacteria. - Urine culture with GNR x2. Continue ceftriaxone, as review of prior urine c ultures dating back to 2018 reveal E coli growth susceptible to Rocephin. (2) Type 2 diabetes mellitus: Plan: - Home meds--> metformin, Ozempic. Hold while inpatient. - Weight based SSI, accuchecks ACHS. (3) CAD (coronary artery disease): Plan: - History of multiple ZOFIA placement including PCI of the LAD, unstable angina 2002 s/p PCI to RCA, and catheterization August 2012 with PCI to LAD - Negative dobutamine stress echo/EKG in September. - Continue Plavix + ASA. - Continue amlodipine, HCTZ, metoprolol, spironolactone. - Ramipril switched to enalapril per hospital formulary. (4) A-fib: Plan: - Atrial paced, not on anticoagulation as outpatient. - Continue metoprolol. - Currently rate controlled. (5) Hypertension: Plan: - Continue carvedilol, spironolactone, switch ramipril to lisinopril per hospital formulary. (6) Aortic insufficiency: Plan: - Noted, stable. (7) Aortic aneurysm: Plan: - Noted, stable. Follows with vascular. (8) Paralysis: Plan: - Continue home medications for pain, muscle spasms. (9) Neurogenic bladder: Plan: - Suprapubic catheter. - UTI management as above. (10) GERD (gastroesophageal reflux disease): Plan: - Continue PPI, omeprazole switched to pantoprazole per hospital formulary. (11) DENICE (obstructive sleep apnea): Plan: - Patient refuses CPAP at night, prefers 2LNC with sleep. (12) Depression: Plan: - Continue duloxetine at night, trazodone at night. Plan - Admit to medicine with telemetry. - SCDs, Lovenox for VTE ppx. - DNR/DNI. Admission and Anticipated Discharge Date Admission Date: November 04, 2022 Subjective Today more awake per but not wuite to baseline in that regard. Some chills still. Sore lip blister. Otherwise no complaints. Review of Systems Review of Systems: All systems reviewed & are unremarkable except as noted in Subjective Physical Exam Constitutional: WD/WN, vitals as above Respiratory: normal respiratory effort, lungs clear to auscultation Cardiovascular: RRR, no murmur, no edema Gastrointestinal (Abdomen): normal bowel sounds, soft, nontender, no hepatosplenomegaly Skin: no rashes, warm and dry upper lip with vesicular lesion, suspect cold sore Neurologic: paraplegic intermittent leg/abdomen spasm noted during interview Psychiatric: A+Ox3, euthymic affect Genitourinary: suprapubic catheter site clean, dry, no purulent drinage or surrounding erythema. Results & Data Results & Data ([facility]) Vital Signs (Past 12 Hours) Vital Signs Temp Pulse Resp BP Pulse Ox Pulse Ox O2 Del Method 11/05/22 08:06 36.3 C L 72 18 107/68 96 Nasal Cannula 11/05/22 01:10 Nasal Cannula 11/05/22 01:10 Nasal Cannula 11/05/22 01:10 96 11/05/22 01:10 36.5 C 71 18 130/78 96 Nasal Cannula O2 Del Method O2 Flow Rate O2 Flow Rate 11/05/22 08:06 1 11/05/22 01:10 2 11/05/22 01:10 2 11/05/22 01:10 Nasal Cannula 2 11/05/22 01:10 2 PG Care Time/CCT Total # of Minutes Spent Total Time Spent with Patient: Total time spent is greater than 50% in coordination of care (as documented) at patient's floor/unit and/or counseling patient: Coding Level of Care Code 73651 SUB INP/OBS CARE 3/50MIN Diagnoses Sepsis secondary to UTI A41.9; N39.0 Type 2 diabetes mellitus E11.9 CAD (coronary artery disease) I25.10 A-fib I48.0 Atrial fibrillation type: paroxysmal Hypertension I10 Hypertension type: essential hypertension Aortic insufficiency I35.1 Aortic aneurysm I71.9 Paralysis G83.9 Neurogenic bladder N31.9 GERD (gastroesophageal reflux disease) K21.9 DENICE (obstructive sleep apnea) G47.33 Depression F32.9 (1) A-fib Atrial fibrillation type: paroxysmal Qualified Code(s): I48.0 - Paroxysmal atrial fibrillation (2) Hypertension Hypertension type: essential hypertension Qualified Code(s): I10 - Essential (primary) hypertension
[2022-11-05] MEDS: RENACIDIN IR SCH (15:51)
[2022-11-05] MEDS ORDERED: SODIUM CHLORIDE 0.9% 1000ML 500 ML IV ONE (16:36)
--- NOTE | 2022-11-05 21:34 | Electrocardiogram Report ---
Test Reason : Blood Pressure : / mmHG Vent. Rate : 086 BPM Atrial Rate : 086 BPM P-R Int : 152 ms QRS Dur : 088 ms QT Int : 354 ms P-R-T Axes : 050 -16 025 degrees QTc Int : 423 ms Normal sinus rhythm Poor R wave progression, consider anterior OH vs. lead placement vs. LVH Abnormal ECG When compared with ECG of 07-OCT-2022 14:21, No significant change was found Confirmed by Pedro Burks ([id number]) on 11/05/2022 9:33:50 PM Referred By: REFERRED SELF Confirmed By:Pedro Burks
[2022-11-05] MEDS: [UNRECOGNIZED DRUG - OTHER] PO SCH (21:55)
[2022-11-05] MEDS: POLYETHYLENE (MIRALAX) 17 GM PACK PO SCH (21:55)
[2022-11-05] MEDS: DULoxetine HCL 60 MG CAP PO SCH (21:55)
[2022-11-05] MEDS: traZODone HCL 50 MG TAB PO SCH (21:55)
[2022-11-05] MEDS: ASPIRIN 81 MG ECTAB PO SCH (21:55)
[2022-11-05] MEDS: HYDROcodone/ACETAMINOPHEN 10/325 TAB PO PRN (22:29)
[2022-11-05] MEDS ORDERED: cefTRIAXone SODIUM 2,000 MG in DEXTROSE 5% 50 ML IV SCH (23:00)
[2022-11-06] MEDS: CLOBETASOL 0.05% SCH ×3 (00:51→15:21)
[2022-11-06] MEDS: LIDOCAINE 5% OINT 30 GM TUBE TOP SCH ×4 (00:51→17:58)
[2022-11-06 01:45] LABS: A calco-baum cmplx NotReported Not Detected (NotDetected); Bact fragilis Not Reported Not Detected (NotDetected); C auris Not Reported Not Detected (NotDetected); Calbicans Not Reported Not Detected (NotDetected); Candida glabrata Not Reported Not Detected (NotDetected); Candida krusei Not Reported Not Detected (NotDetected); Cneoformans/gatti Not Reported Not Detected (NotDetected); Cparapsilosis Not Reported Not Detected (NotDetected); Ctropicalis Not Reported Not Detected (NotDetected); E cloacae compx Not Reported Not Detected (NotDetected); Efaecalis Not Reported Not Detected (NotDetected); Efaecium Not Reported Not Detected (NotDetected); Enterobacterales Not Reported Not Detected (NotDetected); Escherichia coli Not Reported Not Detected (NotDetected); H influenzae Not Reported Not Detected (NotDetected); K aerogenes Not Reported Not Detected (NotDetected); Koxytoca Not Reported Not Detected (NotDetected); Kpneumoniae grp Not Reported Not Detected (NotDetected); Lmonocyt Not Reported Not Detected (NotDetected); N meningitidis Not Reported Not Detected (NotDetected); P aeruginosa Not Reported Not Detected (NotDetected); Proteus spp Not Reported Not Detected (NotDetected); Salmonella spp Not Reported Not Detected (NotDetected); Smarcescens Not Reported Not Detected (NotDetected); Staph lugdunensis Not Reported Not Detected (NotDetected); Staph spp. Not Reported DETECTED (NotDetected); Staphaureus Not Reported Not Detected (NotDetected); Staphepi Not Reported DETECTED (NotDetected); Staphylococcus spp. DETECTED (NotDetected); Stenmaltophilia Not Reported Not Detected (NotDetected); Strep agal(GrpB) Not Reported Not Detected (NotDetected); Strep pneum Not Reported Not Detected (NotDetected); Strep pyog (GrpA) Not Reported Not Detected (NotDetected); Strep spp Not Reported Not Detected (NotDetected); mecAC Resistant Gene DETECTED (NotDetected)
[2022-11-06 02:07] LABS: Staphylococcus epidermidis DETECTED (NotDetected)
[2022-11-06] MEDS: INSULIN ASPART PER UNIT SC SCH ×4 (08:57→21:16)
[2022-11-06] MEDS: HYDROcodone/ACETAMINOPHEN 10/325 TAB PO PRN ×3 (08:58→23:13)
[2022-11-06] MEDS: FUROSEMIDE 40 MG TAB PO SCH (08:59)
[2022-11-06] MEDS: BACLOFEN 10 MG TAB PO PRN (08:59)
[2022-11-06] MEDS: CLOPIDOGREL BISULFATE 75 MG TAB PO SCH (08:59)
[2022-11-06] MEDS: MAGNESIUM OXIDE 400 MG TAB PO SCH (09:00)
[2022-11-06] MEDS: tiZANidine HCL 4 MG TABLET PO SCH ×3 (09:00→21:11)
[2022-11-06] MEDS: SPIRONOLACTONE 25 MG TAB PO SCH (09:00)
[2022-11-06] MEDS: ENALAPRIL MALEATE 10 MG TAB PO SCH ×2 (09:01→21:12)
[2022-11-06] MEDS: DANTROLENE SODIUM 25 MG CAP PO SCH ×3 (09:01→21:10)
[2022-11-06] MEDS: PANTOprazole 40 MG TAB PO SCH ×2 (09:01→21:09)
[2022-11-06] MEDS: SENNA 8.6 MG TAB PO SCH ×2 (09:01→21:10)
[2022-11-06] MEDS: DOCUSATE SODIUM 100 MG CAP PO SCH ×3 (09:01→21:11)
[2022-11-06] MEDS: MIRABEGRON ER 25 MG TAB PO SCH (09:02)
[2022-11-06] MEDS: CETIRIZINE HCL 10 MG TABLET PO SCH (09:02)
[2022-11-06] MEDS: carvediloL 6.25 MG TAB PO SCH ×2 (09:02→21:10)
[2022-11-06] MEDS: ARTIFICIAL TEARS OP SCH ×4 (09:03→21:08)
[2022-11-06] MEDS: CALCIUM 600MG + VIT D 400 IU TAB PO SCH ×2 (09:03→21:09)
[2022-11-06] MEDS: LIDOCAINE 5% 1 PATCH TD SCH (09:03)
[2022-11-06] MEDS: ENOXAPARIN INJ 40 MG/0.4 ML SYR SQ SCH ×2 (09:03→21:13)
[2022-11-06] MEDS: ENEMEEZ PR SCH (09:04)
[2022-11-06] MEDS: PREGABALIN 75 MG CAP PO SCH ×2 (09:10→21:06)
[2022-11-06] MEDS ORDERED: BACLOFEN 10 MG TAB PO STA (10:23)
[2022-11-06 12:54] LABS: Hematocrit (blood only) 33.1 % (40.1-51.0); Mean Corpuscular Hemoglobin 28.8 pg (25.0-34.0); Mean Corpuscular Hgb Conc 33.2 g/dL (32.0-36.0); Mean Corpuscular Volume 86.6 fL (80.0-100.0); Mean Platelet Volume 11.2 fL (9.4-12.4); Platelet Count 185 K/uL (130-400); RDW Standard Deviation 47.8 fL (36.4-46.3); Red Blood Count 3.82 M/uL (4.63-6.08); White Blood Count 4.89 K/ul (4.8-10.8)
[2022-11-06] MEDS: BACLOFEN 20 MG TAB PO SCH ×3 (13:08→21:08)
[2022-11-06] MEDS: CHOLECALCIFEROL 1,000 UNITS 25 MCG TAB PO SCH (13:08)
[2022-11-06] MEDS: CYANOCOBALAMIN (B-12) 500 MCG TABLET PO SCH (13:08)
[2022-11-06 13:22] LABS: BUN Creatinine Ratio 23.4 (10-20); Calcium 8.4 mg/dl (8.5-10.1); Creatinine Clr Calc Pharmacy 138.6 ml/min; Est GFR (African American) 117.4 ml/min; Est GFR (Non-African American) 101.3 ml/min; Potassium 4.1 mmol/L (3.5-5.1)
--- NOTE | 2022-11-06 15:01 | Hospitalist Progress Note ---
Date of Service November 06, 2022 Assessment & Plan (1) UTI (urinary tract infection): Plan: awaiting final cultures. 1 of 2 organisms is sensitive to ceftriaxone, awaiting sensitivities to second organism. will transition to cefdinir as patient is clinically improving and monitor. (2) Type 2 diabetes mellitus: Plan: - Home meds--> metformin, Ozempic. Hold while inpatient. - Weight based SSI, accuchecks ACHS. (3) CAD (coronary artery disease): Plan: - History of multiple ZOFIA placement including PCI of the LAD, unstable angina 2002 s/p PCI to RCA, and catheterization August 2012 with PCI to LAD - Negative dobutamine stress echo/EKG in September. - Continue Plavix + ASA. - Continue amlodipine, HCTZ, metoprolol, spironolactone. - Ramipril switched to enalapril per hospital formulary. (4) A-fib: Plan: - Atrial paced, not on anticoagulation as outpatient. - Continue metoprolol. - Currently rate controlled. (5) Hypertension: Plan: - Continue carvedilol, spironolactone, switch ramipril to lisinopril per hospital formulary. (6) Aortic insufficiency: Plan: - Noted, stable. (7) Aortic aneurysm: Plan: - Noted, stable. Follows with vascular. (8) Paralysis: Plan: - Continue home medications for pain, muscle spasms. Increase baclofen due to his muscle spasms. Increased to 20 4 times a day, and will transition to scheduled dosing. (9) Neurogenic bladder: Plan: - Suprapubic catheter. - UTI management as above. (10) GERD (gastroesophageal reflux disease): Plan: - Continue PPI, omeprazole switched to pantoprazole per hospital formulary. (11) DENICE (obstructive sleep apnea): Plan: - Patient refuses CPAP at night, prefers 2LNC with sleep. (12) Depression: Plan: - Continue duloxetine at night, trazodone at night. Plan - Admit to medicine with telemetry. - SCDs, Lovenox for VTE ppx. - DNR/DNI. Admission and Anticipated Discharge Date Admission Date: November 04, 2022 Subjective 67 yo male reports having more spasms today. He normally reports that these are controlled. He reports his pump has not set off any alarms. Review of Systems Review of Systems: All systems reviewed & are unremarkable except as noted in HPI & below Physical Exam Constitutional: WD/WN, vitals as above Respiratory: normal respiratory effort, lungs clear to auscultation Cardiovascular: RRR, no murmur, no edema Gastrointestinal (Abdomen): normal bowel sounds, soft, nontender, no hepatosplenomegaly Skin: no rashes, warm and dry Psychiatric: A+Ox3, euthymic affect Results & Data Results & Data ([facility]) Vital Signs (Past 12 Hours) Vital Signs Temp Pulse Resp BP Pulse Ox O2 Del Method O2 Flow Rate 11/06/22 08:45 Room Air 11/06/22 07:05 36.5 C 64 16 138/73 95 Nasal Cannula 2 PG Care Time/CCT Total # of Minutes Spent Total Time Spent with Patient: Total time spent is greater than 50% in coordination of care (as documented) at patient's floor/unit and/or counseling patient: Coding Level of Care Code 83338 SUB INP/OBS CARE 2/35MIN Diagnoses UTI (urinary tract infection) T83.511D; N39.0 Encounter type: subsequent encounter Indwelling urinary catheter type: unspecified Urinary tract infection type: catheter-associated UTI Type 2 diabetes mellitus E11.9 CAD (coronary artery disease) I25.10 A-fib I48.0 Atrial fibrillation type: paroxysmal Hypertension I10 Hypertension type: essential hypertension Aortic insufficiency I35.1 Aortic aneurysm I71.9 Paralysis G83.9 Neurogenic bladder N31.9 GERD (gastroesophageal reflux disease) K21.9 DENICE (obstructive sleep apnea) G47.33 Depression F32.9 (1) UTI (urinary tract infection) Encounter type: subsequent encounter Indwelling urinary catheter type: unspecified Urinary tract infection type: catheter-associated UTI Qualified Code(s): T83.511D - Infection and inflammatory reaction due to indwelling urethral catheter, subsequent encounter; N39.0 - Urinary tract infection, site not specified (2) A-fib Atrial fibrillation type: paroxysmal Qualified Code(s): I48.0 - Paroxysmal atrial fibrillation (3) Hypertension Hypertension type: essential hypertension Qualified Code(s): I10 - Essential (primary) hypertension
[2022-11-06] MEDS: RENACIDIN IR SCH (15:43)
[2022-11-06] MEDS: CEFDINIR 300 MG CAP PO SCH (18:21)
--- NOTE | 2022-11-06 21:05 | Urology Consultation ---
Date of Consultation November 06, 2022 Assessment & Plan (1) Type 2 diabetes mellitus: (2) Neurogenic bladder: (3) Altered mental status: (4) Acute UTI: (5) Back pain: (6) Weakness: (7) Renal mass: Plan Extensive conversation with patient today also spoke briefly to patient's on the phone. Patient had previously been seen in the hospital but has a long-term neurogenic condition with neurogenic bladder. Has catheters which are changed every 2 weeks and a suprapubic tract without major issue or problem. Has had issues with leakage and had been upsized to a 24 Mauritian catheter. Patient's had changed within the last week. He has not experienced any major increase in issues with urine. Has not had considerably purulent urine and has not had major or bothersome issues in the pelvis. Main complaint by patient today has largely been related to significant back issues. Did review with patient different options with possibility of catheter change. With patient's possible UTI related issues and possibility of possible other intervention especially related to his significant back pain did discuss exchange catheter today. Patient was amenable to this. Patient did want to confirm with his and did briefly speak with her and confirm the size of the catheter as well as the plan to proceed with exchange. Patient had been prepped and draped in the typical sterile fashion. The suprapubic catheter balloon was deflated. The balloon was in catheter was then removed. A 24 Mauritian catheter was then placed through the tract into the bladder with a small amount of clear yellow urine return. The balloon was elevated in position. Patient did have a minor amount of pain on the initial placement of the catheter but no major issues or problems otherwise. No signs of bleeding or other irritation. Clear yellow urine was appreciated draining through the catheter. Patient was then cleaned and dressed. Patient's imaging was reviewed interpreted by myself. Does have suprapubic catheter in place on CT imaging. Patient has pending cultures. Currently vitals are stable. He is altered mental status issues have improved drastically and patient is at this point oriented x4. Reviewed different concerns and issues with patient. Discussed his complicated history. Extremely complicated urologic history with multiple previous admissions and previous admission at our hospital. Has been seen personally by myself a few years prior with similar type issues. No considerable family history of neurogenic bladder Patient did state that he is undergoing further work-up and close management with his [facility] urologist. He does have plans for further assessment of a kidney lesion with plans for CT imaging in the coming few days. Depending on patient's status in the hospital at that time may consider doing the imaging while here in the hospital. Would need a renal mass protocol CT scan. Otherwise the patient is discharged prior to when the plan scan is he can complete at that time or have it rescheduled. Patient was resting comfortably. Vitals have remained stable. Current urine analysis was reviewed with signs of likely contamination from chronic catheterization. Awaiting results of cultures. Creatinine and blood work otherwise was reviewed and is stable with no considerable white count at 4.8 and creatinine in a excellent range at 0.6. We will plan for patient to continue with follow-up with his [facility] urologist. Please call back if any issues or concerns further along in this admission History of Present Illness Attending Physician: Michael Maldonado History of Present Illness New consultation for patient with UTI/Pyelo, discomfort, and ill feelings. Patient had undergone a spinal surgery last month and since has been dealing with night sweats ill feelings and had developed a worsening altered mental status and confusion. Has been dealing with occasional abdominal pain discomfort. Has severe back pain at baseline with exacerbation of issues. Patient continues to state that his main complaint for the admission was related to his ongoing back issues. Did not have any considerable episodes of sudden onset of pain into flank going down and or bladder pain radiating into groin and back. Patient has a significant history of paraplegia. Has neurogenic bladder with chronic suprapubic catheter which is changed every 2 weeks by the patient's family. Utilizes a 24 Mauritian catheter. Has had a history of significant issues with possible autonomic dysreflexia with bladder distention. Concern for patient's altered mental status and ill feelings possibly related to a UTI issue. UA does appear to be considerably contaminated likely secondary to the suprapubic catheter. Full cultures are not yet available. Discussed and reviewed patient's family history for any history of issues, infections, and disease. Also, discussed patient's medical/surgery history especially related to any history of urinary issues or stone disease. Patient was admitted and is undergoing observation with broad spectrum IV antibiotics. Allergies Allergy/AdvReac Type Severity Reaction Status Date / Time erythromycin base Allergy Severe Anaphylaxis Verified 10/07/22 09:38 Fish Containing Products Allergy Severe THROAT Verified 10/07/22 09:38 SWELLS loratadine Allergy Severe BREATHING Verified 10/07/22 09:38 DIFFICULTY shellfish derived Allergy Severe throat Verified 10/07/22 09:38 gets scratchy diphenhydramine Allergy Intermediate HIVES Verified 10/07/22 09:38 Macrolide Antibiotics Allergy Intermediate E-MYCIN=HIVES; Verified 10/07/22 09:38 "MYCINS"--JAUNDICE rofecoxib AdvReac Severe CHEST PAIN Verified 10/07/22 09:38 zolpidem AdvReac Severe NIGHTMARES Verified 10/07/22 09:38 oxycodone AdvReac Intermediate TERRIBLE Verified 10/07/22 09:38 DREAMS,DISORIENTATION Home Medications Medication Instructions Recorded Confirmed Type calcium carbonate 500 mg-vitamin 1 tab PO BID 12/05/18 11/04/22 History D3 5 mcg (200 unit) tablet (Calcium 500 + D) clopidogrel 75 mg tablet (Plavix) 75 mg PO QAM 12/05/18 11/04/22 History coenzyme Q10 100 mg capsule 100 mg PO HS 12/05/18 11/04/22 History (CoQ-10) docusate sodium 100 mg tablet 100 mg PO TID 12/05/18 11/04/22 History fluticasone propionate 50 1 spray intranasal QAM PRN Nasal 12/05/18 11/04/22 History mcg/actuation nasal Congestion spray,suspension (Flonase Allergy Relief) multivitamin 1 tab PO QAM 12/05/18 11/04/22 History nitroglycerin 0.4 mg sublingual 1 tab sublingual UD PRN Chest Pain 12/05/18 11/04/22 History tablet (Nitrostat) duloxetine 60 mg capsule,delayed 60 mg PO HS 12/06/18 11/04/22 History release sennosides 8.6 mg tablet 8.6 mg PO BID 12/06/18 11/04/22 History trazodone 50 mg tablet 25 mg PO HS 12/06/18 11/04/22 History omeprazole 20 mg capsule,delayed 20 mg PO BID 04/15/20 11/04/22 History release metformin 1,000 mg tablet 1,000 mg PO BID 07/02/20 11/04/22 History lidocaine 5 % topical ointment 1 applic topical Q6H FOOT & BACK 07/10/20 11/04/22 History PAIN mirabegron 50 mg tablet,extended 50 mg PO QAM 07/10/20 11/04/22 History release 24 hr (Myrbetriq) bisacodyl 10 mg rectal suppository 10 mg AR QAM PRN Constipation 09/24/20 11/04/22 History (Dulcolax (bisacodyl)) polyethylene glycol 3350 17 17 g PO HS 09/24/20 11/04/22 History gram/dose oral powder (Miralax) tizanidine 4 mg capsule 4 mg PO TID 09/24/20 11/04/22 History aspirin 81 mg tablet,delayed 81 mg PO HS 10/30/20 11/04/22 History release alendronate 70 mg tablet 70 mg PO WK 02/13/22 11/04/22 History bacitracin zinc 500 unit/gram 1 applic topical QAM PRN Skin 02/13/22 11/04/22 History topical ointment Irritation carvedilol 12.5 mg tablet 6.25 mg PO BID 02/13/22 11/04/22 History cholecalciferol (vitamin D3) 25 50 mcg PO QDL 02/13/22 11/04/22 History mcg (1,000 unit) capsule (Vitamin D3) clotrimazole 1 % topical cream 1 applic topical BID PRN SKIN 02/13/22 11/04/22 History IRRITATION ON CHEST cyanocobalamin (vitamin B-12) 500 1,000 mcg PO DAILY 02/13/22 11/04/22 History mcg tablet (Vitamin B-12) furosemide 40 mg tablet 40 mg PO QAM 02/13/22 11/04/22 History lidocaine 5 % topical patch 1 patch transdermal ONAMOFFPM PRN 02/13/22 11/04/22 History Back Pain lidocaine HCl 2 % mucosal jelly 1 applic topical DIRECTED PRN 02/13/22 11/04/22 History BOWEL PROGRAM nitroglycerin 400 mcg/spray 1 spray translingual UD PRN Chest 02/13/22 11/04/22 History translingual Pain nystatin 100,000 unit/gram topical 1 applic topical BID PRN Skin 02/13/22 11/04/22 History powder Irritation ramipril 10 mg capsule 10 mg PO BID 02/13/22 11/04/22 History spironolactone 25 mg tablet 25 mg PO QAM 02/13/22 11/04/22 History baclofen 10 mg tablet 10 mg PO QID PRN MUSCLE SPASMS 02/14/22 11/04/22 History pregabalin 225 mg capsule 225 mg PO BID 02/14/22 11/04/22 History benzonatate 100 mg capsule 100 mg PO TID PRN cough #15 caps 04/22/22 11/04/22 Rx carboxymethylcellulose sodium 0.5 1 drp OPL QID 04/22/22 11/04/22 History % eye drops cetirizine 10 mg tablet (Zyrtec) 10 mg PO QAM 04/22/22 11/04/22 History citric ac 1980.6 mg-glucono 59.4 30 ml irrigation DAILY PRN 04/22/22 11/04/22 History mg-mag carb 980.4 mg/30 mL NEEDED irrig.soln (Renacidin) clobetasol 0.05 % scalp solution 1 applic topical BID PRN EAR 04/22/22 11/04/22 History DERMATITIS dantrolene 25 mg capsule 25 mg PO TID 04/22/22 11/04/22 History desonide 0.05 % topical cream 1 applic topical BID PRN SKIN 04/22/22 11/04/22 History IRRITATION ON FACE magnesium oxide 420 mg tablet 420 mg PO DAILY 04/22/22 11/04/22 History phenylephrine 0.25 %-pramoxine 1 1 applic AR HS PRN Hemorrhoids 04/22/22 11/04/22 History %-glycerin-wh.petrolatum rectal cream (Hemorrhoidal Cream) pitavastatin magnesium 4 mg tablet 4 mg PO HS 04/22/22 11/04/22 History sodium chloride 0.65 % nasal spray 1 spray intranasal Q2H PRN NASAL 04/22/22 11/04/22 History aerosol (Saline Nasal) DRYNESS Minie Ememez Plus 1 dose AR QAM 09/02/22 11/04/22 History hydrocodone 10 mg-acetaminophen 1 tab PO Q4 PRN Pain 11/04/22 11/04/22 History 325 mg tablet semaglutide 1 mg/dose (2 mg/1.5 1 mg subcut WK 11/04/22 11/04/22 History mL) subcutaneous pen injector (Ozempic) Patient History Medical History Aortic aneurysm UNDER SURVEILLANCE BY VASCULAR (TESSIE) Aortic insufficiency mild on 05/2022 echo Aortic stenosis mild to moderate, 05/2022 echo Atrial fibrillation CAD (coronary artery disease) s/p 6 stents, most recent in 2011 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 Depression Diabetes mellitus, type 2 NIDDM 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 moderately enlarged 4.4 cm GERD (gastroesophageal reflux disease) controlled, stable per pt History of COVID-19 10/18/20>hospitalized for SBO, COVID symptoms resolved History of intestinal obstruction NO SURGERY REQUIRED History of pressure ulcer NOTHING CURRENT NOW>"NOTHING OPENED, REDNESS ONLY" Hyperlipidemia Hypertension controlled, stable per pt Morbid obesity Myocardial Infarction X4 - LAST WAS 2011 Neurogenic bladder indwelling supra-pubic catheter Neurogenic bowel see med list for bowel regimen Pacemaker MEDTRONIC; 2/ SYMPTOMATIC BRADYCARDIA- LAST PACER CHECK/STACY 08/13/22 Paralysis PARLYSIS/PARATHESIA OF B/L LOWER EXTREMITIES FOLLOWING LOWER THORACIC INTERBODY FUSION 11/2017 Renal lesion new 1.6 cm enhancing cortical lesion suggested in the interpolar left kidney. This is highly suspicious for renal cell carcinoma, and follow-up with urology is recommended-they report monitoring CT in [address] Bran Nova with [facility] Rotator cuff tear rt Sleep apnea CPAP RECALLED>USING O2 AT 2L HS 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 Suprapubic catheter Surgical History Fusion of spine T9-T11 Removal of Hardware, T5-T11 Decompression and Fusion: 12/13/18: Grade view 1, MAC#3, ETT 8.5 at [facility] "fused from T6-S1" T9-T12 Grade 1 view, MAC 3, ETT 8 11/22/17: "...no voluntary movement in his lower extremities...no sensation noted below approx inguinal ligament bilat...to be monitored on med-surgical floor...Dr. Almaraz will start...steroid protocol..." H/O sinus surgery History of arthroscopic surgery of shoulder X2 (LEFT) 09/20/15 LMA 5 + PNB. Post-op note: "...in the PACU he was initially hypertensive with BP 170s/110s...given labetalol and hydralazine...now 140s/80s...HR remained in the 60s to 70s...SpO2 has been in the high 90s..." History of back surgery X4 History of cardiac cath X15; TOTAL OF 6 STENTS (STENT PLACED LAST 2011) History of cardiac pacemaker History of cholecystectomy History of cystoscopy History of gastric bypass GASTRIC SLEEVE PROCEDURE History of tonsillectomy and adenoidectomy History of tooth extraction History of total knee replacement B/L S/P cervical spinal fusion C5-6 limited rom S/P UPPP (uvulopalatopharyngoplasty) Status post insertion of intrathecal baclofen pump May 2020-Prometra pump at [facility] Family History Other No family history of adverse response to anesthesia Social History Smoking Status: Former smoker Tobacco Type: Cigarettes Second Hand Exposure: Yes ( A CHILD); Do You Dip or Chew Tobacco: No; Hx Alcohol Use: No Hx Substance Use: No Preferred Language: Cymraes Communication Ability: Effective Visual Impairment: No Limitations Hearing Ability: Normal Bolting 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 Obese. Paraplegia. HEENT: Normocephalic Atraumatic. Inspection normal. Cranial Nerves 2-12 Grossly intact. Nares are clear. Neck is supple. Normal inspection of face. Normal inspection of neck. Neurologic: No deficits on inspection. Baseline for motor function and sensory. Psychologic: Normal affect. Respiratory: Nonlabored. No use of accessory muscles. No tachypnea or dyspnea. Cardiovascular: No tachycardia Skin: [place] and Dry. No rashes or visible lesions. Extremities: Moving upper extremities without issue. No notable change Abdomen: Soft Non-distended. No rebound or guarding. : Morbid obesity with suprapubic catheter in place draining clear yellow urine. Exchanged to a new 24 Mauritian suprapubic catheter utilizing sterile technique. Results & Data ([facility]) Vital Signs (Past 12 Hours) Vital Signs Temp Pulse Resp BP Pulse Ox O2 Del Method 11/06/22 15:01 36.7 C 77 16 106/67 95 Room Air PG Care Time/CCT Total # of Minutes Spent Total Time Spent with Patient: Total time spent is greater than 50% in coordination of care (as documented) at patient's floor/unit and/or counseling patient: Coding Level of Care Code 13316 INT INP/OBS CARE 3/75MIN Diagnoses Type 2 diabetes mellitus E11.9 Neurogenic bladder N31.9 Altered mental status R41.82 Acute UTI N39.0 Back pain M54.6 Back pain laterality: bilateral Back pain location: thoracic back pain Chronicity: acute Weakness R53.1 Renal mass N28.89 (1) Back pain Back pain laterality: bilateral Back pain location: thoracic back pain Chronicity: acute Qualified Code(s): M54.6 - Pain in thoracic spine
[2022-11-06] MEDS: ACETAMINOPHEN 325 MG TAB PO PRN (21:06)
[2022-11-06] MEDS: traZODone HCL 50 MG TAB PO SCH (21:09)
[2022-11-06] MEDS: DULoxetine HCL 60 MG CAP PO SCH (21:10)
[2022-11-06] MEDS: ASPIRIN 81 MG ECTAB PO SCH (21:11)
[2022-11-06] MEDS: [UNRECOGNIZED DRUG - OTHER] PO SCH (21:13)
[2022-11-06] MEDS: POLYETHYLENE (MIRALAX) 17 GM PACK PO SCH (21:14)
[2022-11-07] MEDS: LIDOCAINE 5% OINT 30 GM TUBE TOP SCH ×5 (02:14→23:40)
[2022-11-07] MEDS: CLOBETASOL 0.05% SCH ×4 (02:15→23:40)
[2022-11-07] MEDS: CEFDINIR 300 MG CAP PO SCH ×2 (05:34→18:18)
[2022-11-07 07:56] LABS: Hematocrit (blood only) 34.7 % (40.1-51.0); Hemoglobin 11.3 g/dl (14.0-18.0); Mean Corpuscular Hemoglobin 28.9 pg (25.0-34.0); Mean Corpuscular Hgb Conc 32.6 g/dL (32.0-36.0); Mean Corpuscular Volume 88.7 fL (80.0-100.0); Platelet Count 198 K/uL (130-400); RDW Coefficient of Variation 15.2 % (11.5-14.5); RDW Standard Deviation 48.8 fL (36.4-46.3); Red Blood Count 3.91 M/uL (4.63-6.08); White Blood Count 5.84 K/ul (4.8-10.8)
[2022-11-07 07:56] LABS: Base Excess ABG 4.5 mEq/L (-9-1.8); HCO3 ABG 31 mmol/L (19-24); Oxygen Saturation ABG 98.5 % (90-95); PCO2 ABG 54 mmHg (35-46); PO2 ABG 109 mmHg (80-95); pH ABG 7.37 (7.35-7.45)
[2022-11-07 08:21] LABS: Albumin Globulin Ratio 1.2 (0.9-2); Albumin Level 3.6 gm/dl (3.4-5.0); BUN Creatinine Ratio 22.2 (10-20); Bilirubin,Total 0.3 mg/dl (0.2-1.0); Calcium 8.6 mg/dl (8.5-10.1); Creatinine Clr Calc Pharmacy 98.6 ml/min; Est GFR (African American) 102.1 ml/min; Est GFR (Non-African American) 88.1 ml/min; Globulin 2.9 gm/dl (2.5-4.0); Potassium 3.8 mmol/L (3.5-5.1); Total Protein 6.5 gm/dl (6.0-8.3)
[2022-11-07 08:22] LABS: Basophils # (auto) 0.02 K/uL (0-0.2); Basophils % (auto) 0.3 %; Eosinophils # (auto) 0.21 K/uL (0-0.50); Eosinophils % (auto) 3.6 %; Immature Granulocytes # (auto) 0.11 K/uL (0.00-0.02); Immature Granulocytes % (auto) 1.9 %; Lymphocytes # (auto) 1.85 K/uL (1.2-3.4); Lymphocytes % (auto) 31.7 %; Monocytes # (auto) 0.72 K/uL (0.24-0.82); Monocytes % (auto) 12.3 %; Neutrophils # (auto) 2.93 K/uL (1.4-6.5); Neutrophils % (auto) 50.2 %
--- NOTE | 2022-11-07 08:25 | Hospitalist Progress Note ---
Date of Service November 07, 2022 Assessment & Plan (1) Paralysis: Plan: - Continue home medications for pain, muscle spasms. - Baclofen returned to 10mg q6h due to worsening confusion overnight, improved with decreased dose. - Having worsening of spasms, Neurology consulted and appreciate recommendations, case discussed with Dr. Nguyen: Suspect pain is triggering arm spasms, consider Ativan q8h as needed for spasms/pain. Some concern about functioning of intrathecal baclofen pump given increased spasms. Pain Management consulted. - On CTAP for different cause patient noted to have T4-5 findings possibly suggestive of discitis. Patient did have fevers on admission but no fevers since on 3rd gen cephalosporins. No septic signs. WBC count normal. Unfortunately cannot get MRI as patient's baclofen pump was refilled on 10/28. Have asked Ortho Spine to evaluate patient for recs in regard to this finding. (2) UTI (urinary tract infection): Plan: - Initially started on ceftriaxone after blood and urine cultures collected. - E. coli and Morganella morganii susceptible to ceftriaxone, given clinical improvement patient was transitioned to cefdinir. (3) Type 2 diabetes mellitus: Plan: - Home meds--> metformin, Ozempic. Hold while inpatient. - Weight based SSI, accuchecks ACHS. (4) CAD (coronary artery disease): Plan: - History of multiple ZOFIA placement including PCI of the LAD, unstable angina 2002 s/p PCI to RCA, and catheterization August 2012 with PCI to LAD - Negative dobutamine stress echo/EKG in September. - Continue Plavix + ASA. - Continue amlodipine, HCTZ, metoprolol, spironolactone. - Ramipril switched to enalapril per hospital formulary. (5) A-fib: Plan: - Atrial paced, not on anticoagulation as outpatient. - Continue metoprolol. - Currently rate controlled. (6) Hypertension: Plan: - Continue carvedilol, spironolactone, switch ramipril to lisinopril per hospital formulary. (7) Aortic insufficiency: Plan: - Noted, stable. (8) Aortic aneurysm: Plan: - Noted, stable. Follows with vascular. (9) Neurogenic bladder: Plan: - Suprapubic catheter. - UTI management as above. (10) GERD (gastroesophageal reflux disease): Plan: - Continue PPI, omeprazole switched to pantoprazole per hospital formulary. (11) DENICE (obstructive sleep apnea): Plan: - Patient refuses CPAP at night, prefers 2LNC with sleep. - Hypercapnic on ABG, discussed BIPAP use with patient to improve this (may also be contributing to his confusion). (12) Depression: Plan: - Continue duloxetine at night (increased dose after discussing with Neurology), trazodone at night. Plan - Admit to medicine with telemetry. - SCDs, Lovenox for VTE ppx. - DNR/DNI. Admission and Anticipated Discharge Date Admission Date: November 04, 2022 Subjective and patient report more spasms again this morning. Overnight was lethargic and confused which improved in the morning on my interview. states that he has had spasms for a long time, however the spasms reaching his arms and happening this often is unusual. Review of Systems Review of Systems: All systems reviewed & are unremarkable except as noted in Subjective Physical Exam Constitutional: WD/WN, vitals as above Respiratory: normal respiratory effort, lungs clear to auscultation Cardiovascular: RRR, no murmur, no edema Gastrointestinal (Abdomen): normal bowel sounds, soft, nontender, no hepatosplenomegaly Skin: no rashes, warm and dry Psychiatric: A+Ox3, euthymic affect Results & Data Results & Data ([facility]) Vital Signs (Past 12 Hours) Vital Signs Temp Pulse Resp BP Pulse Ox O2 Del Method O2 Del Method 11/07/22 06:26 36.5 C 70 16 156/90 H 97 Nasal Cannula 11/07/22 02:00 Room Air 11/06/22 21:50 36.6 C 76 17 117/76 97 Room Air 11/06/22 21:21 37.0 C 80 18 158/90 H 95 Room Air O2 Flow Rate 11/07/22 06:26 2 11/07/22 02:00 11/06/22 21:50 11/06/22 21:21 PG Care Time/CCT Total # of Minutes Spent Total Time Spent with Patient: Total time spent is greater than 50% in coordination of care (as documented) at patient's floor/unit and/or counseling patient: Coding Level of Care Code 83272 SUB INP/OBS CARE 3/50MIN Diagnoses Paralysis G83.9 UTI (urinary tract infection) T83.511D; N39.0 Encounter type: subsequent encounter Indwelling urinary catheter type: unspecified Urinary tract infection type: catheter-associated UTI Type 2 diabetes mellitus E11.9 CAD (coronary artery disease) I25.10 A-fib I48.0 Atrial fibrillation type: paroxysmal Hypertension I10 Hypertension type: essential hypertension Aortic insufficiency I35.1 Aortic aneurysm I71.9 Neurogenic bladder N31.9 GERD (gastroesophageal reflux disease) K21.9 DENICE (obstructive sleep apnea) G47.33 Depression F32.9 (1) UTI (urinary tract infection) Encounter type: subsequent encounter Indwelling urinary catheter type: unspecified Urinary tract infection type: catheter-associated UTI Qualified Code(s): T83.511D - Infection and inflammatory reaction due to indwelling urethral catheter, subsequent encounter; N39.0 - Urinary tract infection, site not specified (2) A-fib Atrial fibrillation type: paroxysmal Qualified Code(s): I48.0 - Paroxysmal atrial fibrillation (3) Hypertension Hypertension type: essential hypertension Qualified Code(s): I10 - Essential (primary) hypertension
[2022-11-07 08:43] LABS: Troponin I High Sensitivity 11.4 pg/ml (0-20)
[2022-11-07 08:51] LABS: Allen Test Pos (Pos)
[2022-11-07] MEDS: INSULIN ASPART PER UNIT SC SCH ×4 (09:53→22:22)
[2022-11-07] MEDS: PREGABALIN 75 MG CAP PO SCH ×2 (09:54→22:24)
[2022-11-07] MEDS: ENALAPRIL MALEATE 10 MG TAB PO SCH ×2 (09:55→22:11)
[2022-11-07] MEDS: CETIRIZINE HCL 10 MG TABLET PO SCH (09:55)
[2022-11-07] MEDS: tiZANidine HCL 4 MG TABLET PO SCH ×3 (09:55→22:09)
[2022-11-07] MEDS: DOCUSATE SODIUM 100 MG CAP PO SCH ×3 (09:56→22:09)
[2022-11-07] MEDS: SPIRONOLACTONE 25 MG TAB PO SCH (09:57)
[2022-11-07] MEDS: DANTROLENE SODIUM 25 MG CAP PO SCH ×3 (09:57→22:10)
[2022-11-07] MEDS: carvediloL 6.25 MG TAB PO SCH ×2 (09:57→22:08)
[2022-11-07] MEDS: SENNA 8.6 MG TAB PO SCH ×2 (09:57→22:10)
[2022-11-07] MEDS: ARTIFICIAL TEARS OP SCH ×4 (09:58→22:06)
[2022-11-07] MEDS: PANTOprazole 40 MG TAB PO SCH ×2 (09:58→22:12)
[2022-11-07] MEDS: CLOPIDOGREL BISULFATE 75 MG TAB PO SCH (09:58)
[2022-11-07] MEDS: CALCIUM 600MG + VIT D 400 IU TAB PO SCH ×2 (09:58→22:11)
[2022-11-07] MEDS: FUROSEMIDE 40 MG TAB PO SCH (09:58)
[2022-11-07] MEDS: MAGNESIUM OXIDE 400 MG TAB PO SCH (09:59)
[2022-11-07] MEDS: LIDOCAINE 5% 1 PATCH TD SCH ×2 (09:59→12:48)
[2022-11-07] MEDS: ENOXAPARIN INJ 40 MG/0.4 ML SYR SQ SCH ×2 (09:59→22:13)
[2022-11-07] MEDS: BACLOFEN 10 MG TAB PO SCH ×4 (09:59→22:08)
[2022-11-07] MEDS: ENEMEEZ PR SCH (09:59)
[2022-11-07] MEDS: MIRABEGRON ER 25 MG TAB PO SCH (09:59)
[2022-11-07] MEDS ORDERED: OPTIRAY 320 500ml IV ONE (12:34)
[2022-11-07] MEDS: CHOLECALCIFEROL 1,000 UNITS 25 MCG TAB PO SCH (12:43)
[2022-11-07] MEDS: CYANOCOBALAMIN (B-12) 500 MCG TABLET PO SCH (12:45)
[2022-11-07] MEDS: HYDROcodone/ACETAMINOPHEN 10/325 TAB PO PRN (13:01)
--- NOTE | 2022-11-07 13:23 | Neurology Consultation ---
Date of Consultation November 07, 2022 Assessment & Plan (1) Altered mental status: (2) Spastic paraparesis: (3) Back pain: (4) Thoracic spinal stenosis: (5) Neurogenic bladder: (6) Status post insertion of intrathecal baclofen pump: (7) Pacemaker: Plan This patient has a history of paraplegia with sensory and motor dysfunction from T11 down, since 2018. He was admitted recently with the UTI and increased pain and spasms. He is on multiple medications for pain and spasms and has an intrathecal baclofen pump. He also has a pacemaker and we cannot get MRIs. He continues to have thoracic and lumbar spine pain with pain radiating into the groin centrally I witnessed episodes of shaking in both arms ( from pain) with the ability to speak and follow commands. I do not believe these represent seizures. Recommendations: 1. increasing baclofen Orally yesterday lead to increased confusion ( although it seems like his spasms were little bit better yesterday afternoon ). decreased oral baclofen down to 10 mg 4 times a day. 2. I wonder if his baclofen pump is working correctly. 3. Continue dantrolene, tizanidine, Lyrica, at usual doses. 4. Consider increasing duloxetine to 120 mg each evening. 5. consider low-dose benzodiazepines ( for example, diazepam 2 mg 3 times a day as needed) to help with pain and spasms. This will make him sleepy but if we are Careful in dosing we can control this. The sides, a little rest/ sleepiness may help his pain). 6. Consider pain management consultation to evaluate the functioning of the baclofen pump and additional ideas for pain and spasm control. Overall, I spent a total of 100 minutes with this case including review of records, review of CT films, direct evaluation patient bedside, and discussion of the case with the patient, , and RN at bedside, and Dr. Pacheco including differential diagnosis and treatment options. History of Present Illness Reason for Consultation: patient is a 67-year-old, who I was asked to see at the request of Dr. Pacheco, for neurologic consultation regarding acute spasticity and altered mental status. Requesting Physician: Dr. Pacheco Attending Physician: Jenny Triplett, DO History of Present Illness patient was seen in November of [address] Chairez for the inability to move or feel his legs following a thoracic spine procedure (decompression and fusion T9 through T12 ). The patient has had weakness, numbness and at T11 level with spasticity and pain. He is followed by pain management and has had paraplegia ever since. He uses a power wheelchair and is non ambulatory. He follows with pain management at [facility]. In July of 2020 the patient saw neurology for headaches. An MRI of the brain September of 2020 at [facility] showed no acute changes or stroke. He had no significant small vessel ischemic disease either. The patient had removal of instrumentation and decompression and fusion in the upper to mid thoracic spine by Dr. Almaraz in October of 2022. he has chronic low back pain with neurogenic claudication. He has spasticity and pain to his groin and legs. Patient was brought to the emergency room November 04, after having several days of increased low back pain, weakness in general, groin pain, chills and fever with An E coli UTI CBCs have showed mild and with low to normal white counts. He has had increased monos. Chemistry profile and liver profile were largely unremarkable. CT scan of the head was unremarkable, as was a CT angiography of the chest and CT scan of the thoracic spine. An abdominal CT scan is pending. The patient was having increased spasticity and on November 06 baclofen was increased to 20 mg 3 times a day. This made him more confused. He is also on dantrolene 25 mg 3 times a day, tizanidine 4 mg 3 times a day, Lyrica 225 mg twice a day, duloxetine 60 mg at bedtime. He has been having episodes of bilateral shaking with closing his eyes arching his back from pain. He can speak and communicate during these times. The patient has a baclofen pump, refilled on October 28. Allergies Allergy/AdvReac Type Severity Reaction Status Date / Time erythromycin base Allergy Severe Anaphylaxis Verified 10/07/22 09:38 Fish Containing Products Allergy Severe THROAT Verified 10/07/22 09:38 SWELLS loratadine Allergy Severe BREATHING Verified 10/07/22 09:38 DIFFICULTY shellfish derived Allergy Severe throat Verified 10/07/22 09:38 gets scratchy diphenhydramine Allergy Intermediate HIVES Verified 10/07/22 09:38 Macrolide Antibiotics Allergy Intermediate E-MYCIN=HIVES; Verified 10/07/22 09:38 "MYCINS"--JAUNDICE rofecoxib AdvReac Severe CHEST PAIN Verified 10/07/22 09:38 zolpidem AdvReac Severe NIGHTMARES Verified 10/07/22 09:38 oxycodone AdvReac Intermediate TERRIBLE Verified 10/07/22 09:38 DREAMS,DISORIENTATION Home Medications Medication Instructions Recorded Confirmed Type calcium carbonate 500 mg-vitamin 1 tab PO BID 12/05/18 11/04/22 History D3 5 mcg (200 unit) tablet (Calcium 500 + D) clopidogrel 75 mg tablet (Plavix) 75 mg PO QAM 12/05/18 11/04/22 History coenzyme Q10 100 mg capsule 100 mg PO HS 12/05/18 11/04/22 History (CoQ-10) docusate sodium 100 mg tablet 100 mg PO TID 12/05/18 11/04/22 History fluticasone propionate 50 1 spray intranasal QAM PRN Nasal 12/05/18 11/04/22 History mcg/actuation nasal Congestion spray,suspension (Flonase Allergy Relief) multivitamin 1 tab PO QAM 12/05/18 11/04/22 History nitroglycerin 0.4 mg sublingual 1 tab sublingual UD PRN Chest Pain 12/05/18 11/04/22 History tablet (Nitrostat) duloxetine 60 mg capsule,delayed 60 mg PO HS 12/06/18 11/04/22 History release sennosides 8.6 mg tablet 8.6 mg PO BID 12/06/18 11/04/22 History trazodone 50 mg tablet 25 mg PO HS 12/06/18 11/04/22 History omeprazole 20 mg capsule,delayed 20 mg PO BID 04/15/20 11/04/22 History release metformin 1,000 mg tablet 1,000 mg PO BID 07/02/20 11/04/22 History lidocaine 5 % topical ointment 1 applic topical Q6H FOOT & BACK 07/10/20 3 History PAIN mirabegron 50 mg tablet,extended 50 mg PO QAM 07/10/20 11/04/22 History release 24 hr (Myrbetriq) bisacodyl 10 mg rectal suppository 10 mg CO QAM PRN Constipation 09/24/20 11/04/22 History (Dulcolax (bisacodyl)) polyethylene glycol 3350 17 17 g PO HS 09/24/20 11/04/22 History gram/dose oral powder (Miralax) tizanidine 4 mg capsule 4 mg PO TID 09/24/20 11/04/22 History aspirin 81 mg tablet,delayed 81 mg PO HS 10/30/20 11/04/22 History release alendronate 70 mg tablet 70 mg PO WK 02/13/22 11/04/22 History bacitracin zinc 500 unit/gram 1 applic topical QAM PRN Skin 02/13/22 11/04/22 History topical ointment Irritation carvedilol 12.5 mg tablet 6.25 mg PO BID 02/13/22 11/04/22 History cholecalciferol (vitamin D3) 25 50 mcg PO QDL 02/13/22 11/04/22 History mcg (1,000 unit) capsule (Vitamin D3) clotrimazole 1 % topical cream 1 applic topical BID PRN SKIN 02/13/22 11/04/22 History IRRITATION ON CHEST cyanocobalamin (vitamin B-12) 500 1,000 mcg PO DAILY 02/13/22 11/04/22 History mcg tablet (Vitamin B-12) furosemide 40 mg tablet 40 mg PO QAM 02/13/22 11/04/22 History lidocaine 5 % topical patch 1 patch transdermal ONAMOFFPM PRN 02/13/22 11/04/22 History Back Pain lidocaine HCl 2 % mucosal jelly 1 applic topical DIRECTED PRN 02/13/22 11/04/22 History BOWEL PROGRAM nitroglycerin 400 mcg/spray 1 spray translingual UD PRN Chest 02/13/22 11/04/22 History translingual Pain nystatin 100,000 unit/gram topical 1 applic topical BID PRN Skin 02/13/22 11/04/22 History powder Irritation ramipril 10 mg capsule 10 mg PO BID 02/13/22 11/04/22 History spironolactone 25 mg tablet 25 mg PO QAM 02/13/22 11/04/22 History baclofen 10 mg tablet 10 mg PO QID PRN MUSCLE SPASMS 02/14/22 11/04/22 History pregabalin 225 mg capsule 225 mg PO BID 02/14/22 11/04/22 History benzonatate 100 mg capsule 100 mg PO TID PRN cough #15 caps 04/22/22 11/04/22 Rx carboxymethylcellulose sodium 0.5 1 drp OPL QID 04/22/22 11/04/22 History % eye drops cetirizine 10 mg tablet (Zyrtec) 10 mg PO QAM 04/22/22 11/04/22 History citric ac 1980.6 mg-glucono 59.4 30 ml irrigation DAILY PRN 04/22/22 11/04/22 History mg-mag carb 980.4 mg/30 mL NEEDED irrig.soln (Renacidin) clobetasol 0.05 % scalp solution 1 applic topical BID PRN EAR 04/22/22 11/04/22 History DERMATITIS dantrolene 25 mg capsule 25 mg PO TID 04/22/22 11/04/22 History desonide 0.05 % topical cream 1 applic topical BID PRN SKIN 04/22/22 11/04/22 History IRRITATION ON FACE magnesium oxide 420 mg tablet 420 mg PO DAILY 04/22/22 11/04/22 History phenylephrine 0.25 %-pramoxine 1 1 applic CO HS PRN Hemorrhoids 04/22/22 11/04/22 History %-glycerin-wh.petrolatum rectal cream (Hemorrhoidal Cream) pitavastatin magnesium 4 mg tablet 4 mg PO HS 04/22/22 11/04/22 History sodium chloride 0.65 % nasal spray 1 spray intranasal Q2H PRN NASAL 04/22/22 11/04/22 History aerosol (Saline Nasal) DRYNESS Minie Ememez Plus 1 dose CO QAM 09/02/22 11/04/22 History hydrocodone 10 mg-acetaminophen 1 tab PO Q4 PRN Pain 11/04/22 11/04/22 History 325 mg tablet semaglutide 1 mg/dose (2 mg/1.5 1 mg subcut WK 11/04/22 11/04/22 History mL) subcutaneous pen injector (Ozempic) Patient History Medical History Aortic aneurysm UNDER SURVEILLANCE BY VASCULAR (TESSIE) Aortic insufficiency mild on 05/2022 echo Aortic stenosis mild to moderate, 05/2022 echo Atrial fibrillation CAD (coronary artery disease) s/p 6 stents, most recent in 2011 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 Depression Diabetes mellitus, type 2 NIDDM 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 moderately enlarged 4.4 cm GERD (gastroesophageal reflux disease) controlled, stable per pt History of COVID-19 10/18/20>hospitalized for SBO, COVID symptoms resolved History of intestinal obstruction NO SURGERY REQUIRED History of pressure ulcer NOTHING CURRENT NOW>"NOTHING OPENED, REDNESS ONLY" Hyperlipidemia Hypertension controlled, stable per pt Morbid obesity Myocardial Infarction X4 - LAST WAS 2011 Neurogenic bladder indwelling supra-pubic catheter Neurogenic bowel see med list for bowel regimen Pacemaker MEDTRONIC; 2/2 SYMPTOMATIC BRADYCARDIA- LAST PACER CHECK/STACY 08/13/22 Paralysis PARLYSIS/PARATHESIA OF B/L LOWER EXTREMITIES FOLLOWING LOWER THORACIC INTERBODY FUSION 11/2017 Renal lesion new 1.6 cm enhancing cortical lesion suggested in the interpolar left kidney. This is highly suspicious for renal cell carcinoma, and follow-up with urology is recommended-they report monitoring CT in [address] Bran Nova with [facility] Rotator cuff tear rt Sleep apnea CPAP RECALLED>USING O2 AT 2L HS 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 Suprapubic catheter Surgical History Fusion of spine T9-T11 Removal of Hardware, T5-T11 Decompression and Fusion: 12/13/18: Grade view 1, MAC#3, ETT 8.5 at [facility] "fused from T6-S1" T9-T12 Grade 1 view, MAC 3, ETT 8 11/22/17: "...no voluntary movement in his lower extremities...no sensation noted below approx inguinal ligament bilat...to be monitored on med-surgical floor...Dr. Almaraz will start...steroid protocol..." H/O sinus surgery History of arthroscopic surgery of shoulder X2 (LEFT) 09/20/15 LMA 5 + PNB. Post-op note: "...in the PACU he was initially hypertensive with BP 170s/110s...given labetalol and hydralazine...now 140s/80s...HR remained in the 60s to 70s...SpO2 has been in the high 90s..." History of back surgery X4 History of cardiac cath X15; TOTAL OF 6 STENTS (STENT PLACED LAST 2011) History of cardiac pacemaker History of cholecystectomy History of cystoscopy History of gastric bypass GASTRIC SLEEVE PROCEDURE History of tonsillectomy and adenoidectomy History of tooth extraction History of total knee replacement B/L S/P cervical spinal fusion C5-6 limited rom S/P UPPP (uvulopalatopharyngoplasty) Status post insertion of intrathecal baclofen pump May 2020-Prometra pump at [facility] Family History Other No family history of adverse response to anesthesia Social History Smoking Status: Former smoker Tobacco Type: Cigarettes Second Hand Exposure: Yes ( A CHILD); Do You Dip or Chew Tobacco: No; Hx Alcohol Use: No Hx Substance Use: No Preferred Language: Swedish Communication Ability: Effective Visual Impairment: No Limitations Hearing Ability: Normal Golf Course Assistant Required: No Beliefs That Will Affect Care: Nondenominational Nondenominational Beliefs: MORMON marital status: Current Living Situation: Spouse Current Living Situation Comment: is memory care program resident current occupational status: retired Feels Safe at Home: Yes Safety Concerns: Feels Safe At This Time Assistive Devices: Mechanical Lift, Oxygen - at Night and Wheelchair Review of Systems Review of Systems: Review of systems is limited due to his tense pain. He has pain in his groin and is back. He feels that he can help shaking. He has no vision problems or new numbness. His arms are uninvolved. Exam (Neuro) Physical Exam: The patient is right-handed. Although somewhat sleepy, the patient is awake and alert and orient with voice. He knows his name, age, month, year, and place. He tries to cooperate with one-step commands fairly well. At 1 point, he went into an episode where he closes eyes and started shaking both hands uncontrollably. He would talk and follow commands during this episode. the shaking was variable on lasted seconds. Mood is reasonable and affect is appropriate. Pupils are 4 mm bilaterally and reactive to light. Extraocular eye muscles are intact without nystagmus. Visual acuity and visual reyes seem normal grossly to confrontation. There are no deficits to sensation in the face in all 3 distributions of the fifth cranial nerve bilaterally. Corneal reflexes are positive bilaterally. Facial strength and symmetry was normal bilaterally. Hearing seems normal bilaterally. Palate moves well without asymmetry. There is normal sternocleidomastoid and trapezius (shoulder shrug) strength bilaterally. Tongue is midline with good strength bilaterally. Neck has a full range of motion without discomfort. There are no cervical bruits bilaterally. There are no cranial or ocular bruits. Heart is without murmur. There is a regular rhythm and rate. Cervical spine are nontender to palpation. Gait and stance cannot be tested as he is bed bound. With outstretched arms there is no drift. There are no resting, postural, or action tremors. There is no ataxia with finger to nose testing. There is good facility in the hands. No other abnormal involuntary movements are noted. Motor strength is 5/5 diffusely in the arms bilaterally including deltoids, biceps, triceps, brachioradialis, wrist flexors and extensors, paving rammer, and intrinsic hand muscles. Motor strength is 0/5 diffusely in the legs bilaterally both proximally distally, except for 1/5 in the foot on the left ( not the right). The arms have good tone without spasticity. The legs have decreased tone. Sensory examination is intact to touch and pin In the arms. Patient does feel deep pain in the feet bilaterally. Reflexes are 1/4 in the biceps, triceps,and brachioradialis tendons bilaterally. Quadriceps and Achilles tendon reflexes were absent bilaterally. Toes were neutral with plantar stimulation bilaterally. There is no clonus bilaterally. Results & Data ([facility]) Vital Signs (Past 12 Hours) Vital Signs Temp Pulse Resp BP Pulse Ox O2 Del Method O2 Del Method 11/07/22 11:49 36.3 C L 73 18 158/88 H 97 Room Air 11/07/22 10:08 74 158/88 H 96 Room Air 11/07/22 06:26 36.5 C 70 16 156/90 H 97 Nasal Cannula 11/07/22 02:00 Room Air O2 Flow Rate 11/07/22 11:49 11/07/22 10:08 11/07/22 06:26 2 11/07/22 02:00 PG Care Time/CCT Total # of Minutes Spent Total Time Spent with Patient: Total time spent is greater than 50% in coordination of care (as documented) at patient's floor/unit and/or counseling patient: Coding Level of Care Code INP/OBS CONSULT LVL 5, 80 MIN Diagnoses Altered mental status R41.82 Spastic paraparesis Back pain M54.6 Back pain laterality: bilateral Back pain location: thoracic back pain Chronicity: acute Thoracic spinal stenosis M48.04 Neurogenic bladder N31.9 Status post insertion of intrathecal baclofen pump Z97.8 Pacemaker Z95.0 Time Spent (min) 100 (1) Back pain Back pain laterality: bilateral Back pain location: thoracic back pain Chronicity: acute Qualified Code(s): M54.6 - Pain in thoracic spine
[2022-11-07] MEDS ORDERED: LORazepam 2 MG/1 ML VIAL IV STA (13:25)
[2022-11-07] MEDS ORDERED: diazePAM 2 MG TABLET PO PRN (13:33)
--- NOTE | 2022-11-07 14:44 | CT Scan Report ---
CT abdomen wo/w con HISTORY: 67 years-old Male renal mass protocol per Urology follow up study in a patient with a left renal mass COMPARISON: CT abdomen and pelvis 02/13/2022, CTA chest November 04, 2022 TECHNIQUE: Multiple axial CT images of the abdomen were obtained both with and without the use of 113 mL Optiray. A dose lowering technique was used consistent with the principals of CAMERON. FINDINGS: Cardiomegaly with partially imaged pacer leads and coronary artery calcifications. Unremarkable pancr eas and adrenal glands. Cholecystectomy. Mild hepatomegaly. No hepatic mass identified. Patency of th e hepatic and portal veins. Spleen is enlarged measuring up to 16.6 cm in length. The study is degrad ed by patient body habitus, respiratory motion artifact and upper extremity positioning. Noncontrast scan demonstrates no renal or ureteral calculi or hydronephrosis. Enhancing partially ex ophytic mass of the lateral interpolar left kidney redemonstrated which measures 2.2 x 1.6 x 1.6 cm o n image 229 series 5. No additional enhancing renal mass lesions identified. No urothelial mass lesio n identified. Atherosclerosis of the aorta. Unremarkable IVC. No lymphadenopathy. Small hiatal hernia. Postoperative changes of the stomach. No bowel obstruction or bowel wall thicken ing identified. Moderate colonic fecal retention. Normal appendix. Partially imaged spinal stimulator lead. Extensive posterior interbody marquise and screw fusion hardware of the thoracolumbar spine with di scectomy changes. Mild nonspecific paravertebral edema within the midthoracic spine, unchanged. Groun dglass densities of the lungs suggestive of atelectasis. Several thoracic pedicle screws extend later al to the pedicles into the vertebrocostal junctions. IMPRESSION: 1. Enhancing 2.2 cm lesion of the interpolar left kidney appears stable in size when measured in a si milar fashion compared to the 02/13/2022 exam. Renal cell carcinoma is the diagnosis of exclusion. 2. No bowel obstruction or bowel wall thickening. 3. Extensive posterior interbody marquise and screw fusion hardware of the thoracolumbar spine. Partially imaged paravertebral edema of the upper to midthoracic spine appears similar to the study from 2022 which also showed endplate irregularity at T4-T5 with the left T5 pedicle screw extending into the T4-T5 intervertebral disc space. Findings should be correlated clinically to exclude disciti s/osteomyelitis. 4. Additional findings as above. ACT 112: Negative or not required by law. The above report was generated using voice recognition software. It may contain grammatical, syntax o r spelling errors. Dictated: 11/07/2022 12:43 PM Transcribed: 11/07/2022 1:55 PM [place] [id number] [email or web address] Electronically signed by: Sg Dias M.D. 11/07/2022 2:43 PM
[2022-11-07] MEDS: RENACIDIN IR SCH (16:17)
[2022-11-07] MEDS ORDERED: VANCOMYCIN HCL 2,500 MG in SODIUM CHLORIDE 0.9% 500 ML IV ONE (21:54)
[2022-11-07] MEDS ORDERED: VANCOMYCIN CONSULT ACTIVE PRN (21:54)
[2022-11-07] MEDS: ASPIRIN 81 MG ECTAB PO SCH (22:08)
[2022-11-07] MEDS: DULoxetine HCL 60 MG CAP PO SCH (22:11)
[2022-11-07] MEDS: POLYETHYLENE (MIRALAX) 17 GM PACK PO SCH ×2 (22:12→22:29)
[2022-11-07] MEDS: traZODone HCL 50 MG TAB PO SCH (22:14)
[2022-11-07] MEDS ORDERED: PIPERACILLIN/TAZOBACTAM 4.5 GM in DEXTROSE 5% 100 ML IV ONE (22:15)
[2022-11-07] MEDS: [UNRECOGNIZED DRUG - OTHER] PO SCH (22:54)
[2022-11-07] MEDS: DAPTOmycin 525 MG in SYRINGE 0 ML IV SCH (22:57)
[2022-11-08] MEDS: HYDROcodone/ACETAMINOPHEN 10/325 TAB PO PRN ×3 (02:16→16:15)
[2022-11-08] MEDS: PIPERACILLIN/TAZOBACTAM 4.5 GM in DEXTROSE 5% 100 ML IV SCH ×3 (04:55→20:07)
[2022-11-08] MEDS: LIDOCAINE 5% OINT 30 GM TUBE TOP SCH ×3 (06:15→18:01)
--- NOTE | 2022-11-08 07:13 | Hospitalist Progress Note ---
Date of Service November 08, 2022 Assessment & Plan (1) Paralysis: Plan: - Continue home medications for pain, muscle spasms. - Baclofen 10mg q6h due to worsening confusion overnight, with prn dosing if spasms not controlled. - Neurology consulted and appreciate recommendations, case discussed with Dr. Nguyen: Suspect pain is triggering spasms, consider Ativan q8h as needed for spasms/pain. Some concern about functioning of intrathecal baclofen pump given increased spasms. Pain Management consulted. - On CTAP for different cause patient noted to have T4-5 findings possibly suggestive of discitis/osteomyelitis. Patient did have fevers on admission but no fevers since on 3rd gen cephalosporins. No septic signs. WBC count normal. Unfortunately cannot get MRI as patient's baclofen pump was refilled on 10/28. - Dapto/Zosyn started evening 11/07; Ortho Spine consulted and patient made NPO at midnight for I+D and possible hardware removal 11/[address] Almaraz. Start on NSS at 150cc/hr to continue until late morning 11/09. Case discussed with Dr. Almaraz. (2) Discitis of thoracic region: Plan: - See Abx above, Ortho Spine consulted. (3) UTI (urinary tract infection): Plan: - Initially started on ceftriaxone after blood and urine cultures collected. - E. coli and Morganella morganii susceptible to ceftriaxone, Abx escalated for possible discitis/osteomyelitis as above. (4) Type 2 diabetes mellitus: Plan: - Home meds--> metformin, Ozempic. Hold while inpatient. - Weight based SSI, Accuchecks ACHS. (5) CAD (coronary artery disease): Plan: - History of multiple ZOFIA placement including PCI of the LAD, unstable angina 2002 s/p PCI to RCA, and catheterization August 2012 with PCI to LAD. - Negative dobutamine stress echo/EKG in September. - Continue Plavix + ASA. - Continue amlodipine, HCTZ, metoprolol, spironolactone. - Ramipril switched to enalapril per hospital formulary. (6) A-fib: Plan: - Atrial paced, not on anticoagulation as outpatient. ChadsVasc score of 4. - Continue metoprolol. - Currently rate controlled. (7) Hypertension: Plan: - Continue carvedilol, spironolactone; switched ramipril to lisinopril per hospital formulary. (8) Aortic insufficiency: Plan: - Noted, stable. (9) Aortic aneurysm: Plan: - Noted, stable. Follows with Vascular Surgery. (10) Neurogenic bladder: Plan: - Suprapubic catheter. - UTI management as above. (11) GERD (gastroesophageal reflux disease): Plan: - Continue PPI, omeprazole switched to pantoprazole per hospital formulary. (12) DENICE (obstructive sleep apnea): Plan: - Patient refuses CPAP at night, prefers 2LNC with sleep. - Hypercapnic on ABG, discussed BIPAP use with patient to improve this (may also be contributing to his episodes of confusion). (13) Depression: Plan: - Continue duloxetine at night (increased dose after discussing with Neurology), trazodone at night. Plan DNR/DNI in non-surgical circumstances DM2 diet, IVF 150cc/hr Holding chemoppx for impending procedure in AM; SCDs Medical status for now; if shows signs of sepsis transfer Admission and Anticipated Discharge Date Admission Date: November 04, 2022 Subjective Had episode of emesis during a spasm overnight, given Zofran with relief. Per having continued abdominal spasms, very painful and distressing. Given baclofen 10mg PO x1 extra dose and also offered his PRN oxycodone. Otherwise no complaints. No fevers overnight. Review of Systems Review of Systems: All systems reviewed & are unremarkable except as noted in Subjective Physical Exam Constitutional: WD/WN, vitals as above Respiratory: normal respiratory effort, lungs clear to auscultation Cardiovascular: RRR, no murmur, no edema Gastrointestinal (Abdomen): normal bowel sounds, soft, nontender, no hepatosplenomegaly Skin: no rashes, warm and dry Neurologic: witnessed episodes of shaking in both arms with the ability to speak and follow commands, no seizure activity paraplegic Psychiatric: A+Ox3, euthymic affect Results & Data Results & Data ([facility]) Vital Signs (Past 12 Hours) Vital Signs Temp Pulse Resp BP Pulse Ox O2 Del Method O2 Flow Rate 11/07/22 19:17 Room Air 11/07/22 20:29 36.2 C L 76 18 143/96 H 97 Nasal Cannula 2 PG Care Time/CCT Total # of Minutes Spent Total Time Spent with Patient: Total time spent is greater than 50% in coordination of care (as documented) at patient's floor/unit and/or counseling patient: Coding Level of Care Code 80697 SUB INP/OBS CARE 50MIN Diagnoses Paralysis G83.9 Discitis of thoracic region M46.44 UTI (urinary tract infection) T83.511D; N39.0 Encounter type: subsequent encounter Indwelling urinary catheter type: unspecified Urinary tract infection type: catheter-associated UTI Type 2 diabetes mellitus E11.9 CAD (coronary artery disease) I25.10 A-fib I48.0 Atrial fibrillation type: paroxysmal Hypertension I10 Hypertension type: essential hypertension Aortic insufficiency I35.1 Aortic aneurysm I71.9 Neurogenic bladder N31.9 GERD (gastroesophageal reflux disease) K21.9 DENICE (obstructive sleep apnea) G47.33 Depression F32.9 (1) UTI (urinary tract infection) Encounter type: subsequent encounter Indwelling urinary catheter type: unspecified Urinary tract infection type: catheter-associated UTI Qualified Code(s): T83.511D - Infection and inflammatory reaction due to indwelling urethral catheter, subsequent encounter; N39.0 - Urinary tract infection, site not specified (2) A-fib Atrial fibrillation type: paroxysmal Qualified Code(s): I48.0 - Paroxysmal atrial fibrillation (3) Hypertension Hypertension type: essential hypertension Qualified Code(s): I10 - Essential (primary) hypertension
[2022-11-08 07:17] LABS: Hematocrit (blood only) 36.1 % (40.1-51.0); Mean Corpuscular Hemoglobin 29.2 pg (25.0-34.0); Mean Corpuscular Hgb Conc 33.2 g/dL (32.0-36.0); Mean Corpuscular Volume 87.8 fL (80.0-100.0); Mean Platelet Volume 11.4 fL (9.4-12.4); Platelet Count 330 K/uL (130-400); RDW Coefficient of Variation 15.1 % (11.5-14.5); RDW Standard Deviation 48.3 fL (36.4-46.3); Red Blood Count 4.11 M/uL (4.63-6.08); White Blood Count 10.32 K/ul (4.8-10.8)
[2022-11-08 07:42] LABS: BUN Creatinine Ratio 23.1 (10-20); C Reactive Protein 2.24 mg/dl (0-0.5); Calcium 9.3 mg/dl (8.5-10.1); Creatinine Clr Calc Pharmacy 97.5 ml/min; Est GFR (African American) 100.7 ml/min; Est GFR (Non-African American) 86.9 ml/min
[2022-11-08 07:52] LABS: Basophils # (auto) 0.05 K/uL (0-0.2); Basophils % (auto) 0.5 %; Eosinophils # (auto) 0.08 K/uL (0-0.50); Eosinophils % (auto) 0.8 %; Immature Granulocytes # (auto) 0.16 K/uL (0.00-0.02); Immature Granulocytes % (auto) 1.6 %; Lymphocytes % (auto) 23.3 %; Monocytes # (auto) 1.14 K/uL (0.24-0.82); Neutrophils # (auto) 6.49 K/uL (1.4-6.5); Neutrophils % (auto) 62.8 %
[2022-11-08] MEDS: CLOBETASOL 0.05% SCH ×2 (08:27→15:34)
[2022-11-08] MEDS: carvediloL 6.25 MG TAB PO SCH ×2 (09:46→21:42)
[2022-11-08] MEDS: ENALAPRIL MALEATE 10 MG TAB PO SCH ×2 (09:46→21:42)
[2022-11-08] MEDS: BACLOFEN 10 MG TAB PO SCH ×5 (09:46→21:41)
[2022-11-08] MEDS: SENNA 8.6 MG TAB PO SCH ×2 (09:46→21:43)
[2022-11-08] MEDS: PANTOprazole 40 MG TAB PO SCH ×2 (09:46→21:42)
[2022-11-08] MEDS: DOCUSATE SODIUM 100 MG CAP PO SCH ×3 (09:47→21:42)
[2022-11-08] MEDS: CLOPIDOGREL BISULFATE 75 MG TAB PO SCH (09:47)
[2022-11-08] MEDS: CALCIUM 600MG + VIT D 400 IU TAB PO SCH ×2 (09:47→21:41)
[2022-11-08] MEDS: tiZANidine HCL 4 MG TABLET PO SCH ×3 (09:47→21:43)
[2022-11-08] MEDS: MIRABEGRON ER 25 MG TAB PO SCH (09:47)
[2022-11-08] MEDS: LIDOCAINE 5% 1 PATCH TD SCH (09:48)
[2022-11-08] MEDS: CETIRIZINE HCL 10 MG TABLET PO SCH (09:48)
[2022-11-08] MEDS: FUROSEMIDE 40 MG TAB PO SCH (09:48)
[2022-11-08] MEDS: ENEMEEZ PR SCH (09:48)
[2022-11-08] MEDS: SPIRONOLACTONE 25 MG TAB PO SCH (09:48)
[2022-11-08] MEDS: MAGNESIUM OXIDE 400 MG TAB PO SCH (09:48)
[2022-11-08] MEDS: ENOXAPARIN INJ 40 MG/0.4 ML SYR SQ SCH (09:48)
[2022-11-08] MEDS: DANTROLENE SODIUM 25 MG CAP PO SCH ×3 (09:48→21:42)
[2022-11-08] MEDS: INSULIN ASPART PER UNIT SC SCH ×4 (09:55→20:32)
[2022-11-08] MEDS: PREGABALIN 75 MG CAP PO SCH ×2 (09:55→21:42)
[2022-11-08] MEDS: ARTIFICIAL TEARS OP SCH ×4 (09:55→22:22)
--- NOTE | 2022-11-08 09:55 | Neurology Progress Note ---
Date of Service November 08, 2022 Assessment & Plan (1) Altered mental status: (2) Spastic paraparesis: (3) Back pain: (4) Thoracic spinal stenosis: (5) Neurogenic bladder: (6) Status post insertion of intrathecal baclofen pump: (7) Pacemaker: Plan This patient has a history of paraplegia with sensory and motor dysfunction at a T11 level, since 2018. He was admitted recently with the UTI and increased pain and spasms. He is on multiple medications for pain and spasms and has an intrathecal baclofen pump. He also has a pacemaker and we cannot get MRIs. He continues to have thoracic and lumbar spine pain with pain radiating into the groin centrally . CT scan of the abdomen showed changes in the thoracic spine which could signal diskitis. He may have a spine infection which would add to his pain and spasticity. On November 07I witnessed episodes of shaking in both arms ( from pain) with the ability to speak and follow commands. I do not believe these represented seizures. there are no Shaking episodes or spasms that can see this morning nor reported by nursing. Recommendations: 1. Continue baclofen 10 milligrams 4 times a day. 2. See if pain management can tell if the baclofen pump is working correctly. 3. Continue dantrolene, tizanidine, Lyrica, at usual doses. 4. continue duloxetine 120 mg each evening. 5. consider low-dose benzodiazepines ( for example, diazepam, 2 mg 3 times a day, as needed) to help with pain and spasms. This will make him sleepy, but if we are careful in dosing, we can control this. Besides, a little rest/sleepiness may help his pain and recovery). 6. Consider pain management consultation to evaluate the functioning of the baclofen pump and additional ideas for pain and spasm control. 7. Agree with antibiotics to treat possible diskitis as well as his urinary tract infection. Overall, I spent a total of 35 minutes with this case including review of records, review of CT films, direct evaluation patient bedside, and discussion of the case with the patient and RN at bedside, and Dr. Pacheco including differential diagnosis and treatment options. Admission and Anticipated Discharge Date Admission Date: November 04, 2022 Subjective Patient denies any cervical spine pain but does have thoracic, lumbar, and sacral spine pain. Nursing reports less shaking and spasms compared to yesterday. He also feel he is more alert today than he was yesterday afternoon. blood pressure is 141/86. CT scan of the abdomen revealed changes in the thoracic spine which could re flect an inflammatory/infectious condition -diskitis. He also has an E coli UTI. Patient currently is on piperacillin /tazobactam daptomycin. CT scan of the abdomen also shows a 2 centimeter left renal mass, possibly renal cell carcinoma. Duloxetine was increased to 120 milligrams in the evening and his other pain medicines/muscle relaxers were kept the same as baseline. Results & Data ([facility]) Vital Signs (Past 12 Hours) Vital Signs Temp Pulse Resp BP Pulse Ox O2 Del Method 11/08/22 07:11 36.8 C 85 16 141/86 H 97 Room Air Exam (Neuro) Physical Exam: Patient is sleepy but arousable with voice. Speech is without any obvious aphasia or dysarthria. He follows one-step commands very well. Extraocular eye muscles seem intact without nystagmus. There is no facial droop. No abnormal involuntary movements are noted and there are no shaking episodes. Arms have good tone and 5/5 strength diffusely. legs are without involuntary weak as before. Neck is supple good range of motion and no tenderness or discomfort. PG Care Time/CCT Total # of Minutes Spent Total Time Spent with Patient: Total time spent is greater than 50% in coordination of care (as documented) at patient's floor/unit and/or counseling patient: Coding Level of Care Code 76347 SUB INP/OBS CARE 2/35MIN Diagnoses Altered mental status R41.82 Spastic paraparesis Back pain M54.6 Back pain laterality: bilateral Back pain location: thoracic back pain Chronicity: acute Thoracic spinal stenosis M48.04 Neurogenic bladder N31.9 Status post insertion of intrathecal baclofen pump Z97.8 Pacemaker Z95.0 (1) Back pain Back pain laterality: bilateral Back pain location: thoracic back pain Chronicity: acute Qualified Code(s): M54.6 - Pain in thoracic spine
[2022-11-08] MEDS ORDERED: BACLOFEN 10 MG TAB PO ONE (10:44)
--- NOTE | 2022-11-08 12:00 | Orthopedic Consultation ---
Date of Consultation November 08, 2022 Assessment & Plan (1) Discitis of thoracic region: Assessment possible T4 discitis. Plan at this time he is certainly high risk for infection. I have discussed this with the patient and his . I am going to plan for an I&D of the thoracic spine tomorrow with possible hardware removal. We will make him n.p.o. after midnight. History of Present Illness Reason for Consultation: Worsening thoracic back pain Attending Physician: Jenny Triplett DO History of Present Illness This is a 60 7M male known to me the presents with fevers chills and worsening thoracic back pain. Is been diagnosed with a UTI and is certainly at risk for seeding his thoracic surgery. This morning his is at the bedside. He is noted worsening pain across the thoracic region. Allergies Allergy/AdvReac Type Severity Reaction Status Date / Time erythromycin base Allergy Severe Anaphylaxis Verified 10/07/22 09:38 Fish Containing Products Allergy Severe THROAT Verified 10/07/22 09:38 SWELLS loratadine Allergy Severe BREATHING Verified 10/07/22 09:38 DIFFICULTY shellfish derived Allergy Severe throat Verified 10/07/22 09:38 gets scratchy diphenhydramine Allergy Intermediate HIVES Verified 10/07/22 09:38 Macrolide Antibiotics Allergy Intermediate E-MYCIN=HIVES; Verified 10/07/22 09:38 "MYCINS"--JAUNDICE rofecoxib AdvReac Severe CHEST PAIN Verified 10/07/22 09:38 zolpidem AdvReac Severe NIGHTMARES Verified 10/07/22 09:38 oxycodone AdvReac Intermediate TERRIBLE Verified 10/07/22 09:38 DREAMS,DISORIENTATION Home Medications Medication Instructions Recorded Confirmed Type calcium carbonate 500 mg-vitamin 1 tab PO BID 12/05/18 11/04/22 History D3 5 mcg (200 unit) tablet (Calcium 500 + D) clopidogrel 75 mg tablet (Plavix) 75 mg PO QAM 12/05/18 11/04/22 History coenzyme Q10 100 mg capsule 100 mg PO HS 12/05/18 11/04/22 History (CoQ-10) docusate sodium 100 mg tablet 100 mg PO TID 12/05/18 11/04/22 History fluticasone propionate 50 1 spray intranasal QAM PRN Nasal 12/05/18 11/04/22 History mcg/actuation nasal Congestion spray,suspension (Flonase Allergy Relief) multivitamin 1 tab PO QAM 12/05/18 11/04/22 History nitroglycerin 0.4 mg sublingual 1 tab sublingual UD PRN Chest Pain 12/05/18 11/04/22 History tablet (Nitrostat) duloxetine 60 mg capsule,delayed 60 mg PO HS 12/06/18 11/04/22 History release sennosides 8.6 mg tablet 8.6 mg PO BID 12/06/18 11/04/22 History trazodone 50 mg tablet 25 mg PO HS 12/06/18 11/04/22 History omeprazole 20 mg capsule,delayed 20 mg PO BID 04/15/20 11/04/22 History release metformin 1,000 mg tablet 1,000 mg PO BID 07/02/20 11/04/22 History lidocaine 5 % topical ointment 1 applic topical Q6H FOOT & BACK 07/10/20 11/04/22 History PAIN mirabegron 50 mg tablet,extended 50 mg PO QAM 07/10/20 11/04/22 History release 24 hr (Myrbetriq) bisacodyl 10 mg rectal suppository 10 mg AZ QAM PRN Constipation 09/24/20 11/04/22 History (Dulcolax (bisacodyl)) polyethylene glycol 3350 17 17 g PO HS 09/24/20 11/04/22 History gram/dose oral powder (Miralax) tizanidine 4 mg capsule 4 mg PO TID 09/24/20 11/04/22 History aspirin 81 mg tablet,delayed 81 mg PO HS 10/30/20 11/04/22 History release alendronate 70 mg tablet 70 mg PO WK 02/13/22 11/04/22 History bacitracin zinc 500 unit/gram 1 applic topical QAM PRN Skin 02/13/22 11/04/22 History topical ointment Irritation carvedilol 12.5 mg tablet 6.25 mg PO BID 02/13/22 11/04/22 History cholecalciferol (vitamin D3) 25 50 mcg PO QDL 02/13/22 11/04/22 History mcg (1,000 unit) capsule (Vitamin D3) clotrimazole 1 % topical cream 1 applic topical BID PRN SKIN 02/13/22 11/04/22 History IRRITATION ON CHEST cyanocobalamin (vitamin B-12) 500 1,000 mcg PO DAILY 02/13/22 11/04/22 History mcg tablet (Vitamin B-12) furosemide 40 mg tablet 40 mg PO QAM 02/13/22 11/04/22 History lidocaine 5 % topical patch 1 patch transdermal ONAMOFFPM PRN 02/13/22 11/04/22 History Back Pain lidocaine HCl 2 % mucosal jelly 1 applic topical DIRECTED PRN 02/13/22 11/04/22 History BOWEL PROGRAM nitroglycerin 400 mcg/spray 1 spray translingual UD PRN Chest 02/13/22 11/04/22 History translingual Pain nystatin 100,000 unit/gram topical 1 applic topical BID PRN Skin 02/13/22 11/04/22 History powder Irritation ramipril 10 mg capsule 10 mg PO BID 02/13/22 11/04/22 History spironolactone 25 mg tablet 25 mg PO QAM 02/13/22 11/04/22 History baclofen 10 mg tablet 10 mg PO QID PRN MUSCLE SPASMS 02/14/22 11/04/22 History pregabalin 225 mg capsule 225 mg PO BID 02/14/22 11/04/22 History benzonatate 100 mg capsule 100 mg PO TID PRN cough #15 caps 04/22/22 11/04/22 Rx carboxymethylcellulose sodium 0.5 1 drp OPL QID 04/22/22 11/04/22 History % eye drops cetirizine 10 mg tablet (Zyrtec) 10 mg PO QAM 04/22/22 11/04/22 History citric ac 1980.6 mg-glucono 59.4 30 ml irrigation DAILY PRN 04/22/22 11/04/22 History mg-mag carb 980.4 mg/30 mL NEEDED irrig.soln (Renacidin) clobetasol 0.05 % scalp solution 1 applic topical BID PRN EAR 04/22/22 11/04/22 History DERMATITIS dantrolene 25 mg capsule 25 mg PO TID 04/22/22 11/04/22 History desonide 0.05 % topical cream 1 applic topical BID PRN SKIN 04/22/22 11/04/22 History IRRITATION ON FACE magnesium oxide 420 mg tablet 420 mg PO DAILY 04/22/22 11/04/22 History phenylephrine 0.25 %-pramoxine 1 1 applic AZ HS PRN Hemorrhoids 04/22/22 11/04/22 History %-glycerin-wh.petrolatum rectal cream (Hemorrhoidal Cream) pitavastatin magnesium 4 mg tablet 4 mg PO HS 04/22/22 11/04/22 History sodium chloride 0.65 % nasal spray 1 spray intranasal Q2H PRN NASAL 04/22/22 11/04/22 History aerosol (Saline Nasal) DRYNESS Minie Ememez Plus 1 dose AZ QAM 09/02/22 11/04/22 History hydrocodone 10 mg-acetaminophen 1 tab PO Q4 PRN Pain 11/04/22 11/04/22 History 325 mg tablet semaglutide 1 mg/dose (2 mg/1.5 1 mg subcut WK 11/04/22 11/04/22 History mL) subcutaneous pen injector (Ozempic) Patient History Medical History Aortic aneurysm UNDER SURVEILLANCE BY VASCULAR (TESSIE) Aortic insufficiency mild on 05/2022 echo Aortic stenosis mild to moderate, 05/2022 echo Atrial fibrillation CAD (coronary artery disease) s/p 6 stents, most recent in 2011 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 Depression Diabetes mellitus, type 2 NIDDM 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 moderately enlarged 4.4 cm GERD (gastroesophageal reflux disease) controlled, stable per pt History of COVID-19 10/18/20>hospitalized for SBO, COVID symptoms resolved History of intestinal obstruction NO SURGERY REQUIRED History of pressure ulcer NOTHING CURRENT NOW>"NOTHING OPENED, REDNESS ONLY" Hyperlipidemia Hypertension controlled, stable per pt Morbid obesity Myocardial Infarction X4 - LAST WAS 2011 Neurogenic bladder indwelling supra-pubic catheter Neurogenic bowel see med list for bowel regimen Pacemaker MEDTRONIC; 2/2 SYMPTOMATIC BRADYCARDIA- LAST PACER CHECK/STACY 08/13/22 Paralysis PARLYSIS/PARATHESIA OF B/L LOWER EXTREMITIES FOLLOWING LOWER THORACIC INTERBODY FUSION 11/2017 Renal lesion new 1.6 cm enhancing cortical lesion suggested in the interpolar left kidney. This is highly suspicious for renal cell carcinoma, and follow-up with urology is recommended-they report monitoring CT in [address] Bran Nova with [facility] Rotator cuff tear rt Sleep apnea CPAP RECALLED>USING O2 AT 2L HS 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 Suprapubic catheter Surgical History Fusion of spine T9-T11 Removal of Hardware, T5-T11 Decompression and Fusion: 12/13/18: Grade view 1, MAC#3, ETT 8.5 at [facility] "fused from T6-S1" T9-T12 Grade 1 view, MAC 3, ETT 8 11/22/17: "...no voluntary movement in his lower extremities...no sensation noted below approx inguinal ligament bilat...to be monitored on med-surgical floor...Dr. Almaraz will start...steroid protocol..." H/O sinus surgery History of arthroscopic surgery of shoulder X2 (LEFT) 09/20/15 LMA 5 + PNB. Post-op note: "...in the PACU he was initially hypertensive with BP 170s/110s...given labetalol and hydralazine...now 140s/80s...HR remained in the 60s to 70s...SpO2 has been in the high 90s..." History of back surgery X4 History of cardiac cath X15; TOTAL OF 6 STENTS (STENT PLACED LAST 2011) History of cardiac pacemaker History of cholecystectomy History of cystoscopy History of gastric bypass GASTRIC SLEEVE PROCEDURE History of tonsillectomy and adenoidectomy History of tooth extraction History of total knee replacement B/L S/P cervical spinal fusion C5-6 limited rom S/P UPPP (uvulopalatopharyngoplasty) Status post insertion of intrathecal baclofen pump May 2020-Prometra pump at [facility] Family History Other No family history of adverse response to anesthesia Social History Smoking Status: Former smoker Tobacco Type: Cigarettes Second Hand Exposure: Yes ( A CHILD); Do You Dip or Chew Tobacco: No; Hx Alcohol Use: No Hx Substance Use: No Preferred Language: Kinyarwanda Communication Ability: Effective Visual Impairment: No Limitations Hearing Ability: Normal Continuous Conveyor Screen Drier Required: No Beliefs That Will Affect Care: Confucianism Confucianism Beliefs: PRESYBETERIAN marital status: Current Living Situation: Spouse 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 I was able to have him sit up with assistance. Incision appears to be well-healed. There is no erythema no drainage. Results & Data ([facility]) Vital Signs (Past 12 Hours) Vital Signs Temp Pulse Resp BP Pulse Ox O2 Del Method 11/08/22 07:11 36.8 C 85 16 141/86 H 97 Room Air
[2022-11-08] MEDS: SODIUM CHLORIDE 0.9% 1000ML 1,000 ML IV SCH ×2 (12:02→18:40)
[2022-11-08] MEDS: CYANOCOBALAMIN (B-12) 500 MCG TABLET PO SCH (12:03)
[2022-11-08] MEDS: CHOLECALCIFEROL 1,000 UNITS 25 MCG TAB PO SCH (12:03)
[2022-11-08] MEDS: ONDANSETRON INJ 2 MG/ML 2 ML VIAL IV PRN (13:33)
[2022-11-08] MEDS: RENACIDIN IR SCH (15:51)
[2022-11-08 19:11] LABS: Base Excess ABG 8.1 mEq/L (-9-1.8); HCO3 ABG 35 mmol/L (19-24); Oxygen Saturation ABG 91.7 % (90-95); PCO2 ABG 58 mmHg (35-46); PO2 ABG 62 mmHg (80-95); pH ABG 7.39 (7.35-7.45)
[2022-11-08 19:35] LABS: Allen Test POS (Pos)
--- NOTE | 2022-11-08 19:54 | Communication Note ---
Date of Service: November 08, 2022 Asked to evaluate due to poor responsiveness. Case had been signed out to me by primary hospitalist as I was cross covering. ABG ordered based on history given by nursing, and baseline information of the patient's situation. Seen and examinedno meaningful HPI or review of systems obtainable from patient. He alternates between being very somnolent and to a degree apneic, and then having regular respiratory rate eyes open/glazed over, and will say things such as "are you listening to me". notes that he has really been strugglinghe has had significant pain and spasms, and whenever medications wear off, he is in tremendous painhas had a lot of pain over the last 5 years, but the last week or so has been the worst. In discussing my suspicion that it is probably largely a polypharmacy situation, she concursdiscussed that with his vitals being stable, the main concern would be hypercapnia, and with his apneic periods, I suspect BiPAP would be of benefit while we are waiting out the effects of his medications. We discussed the risks and benefits of medications such as Narcan and flumazenil, we both agreed that unless it was truly necessary (such as to stave off the need for mechanical ventilation), the harm inflicted by creating a degree of immediate withdrawal/amplification of pain would far outweigh the benefit of a more quick "wearing off" of medicines. Vitals noted, mental status as above. Lungs clear but quiet, his breathing is probably about 20 seconds of normal breathing followed by 5 seconds or so of apnea, his m entation is degree of conversational disorientation where he notes "did you hear me" and other times when he is apneic he is essentially asleep/minimally to nonresponsive. Neurologically he is symmetric. Cardio regular. Polypharmacyexceedingly difficult situation given his tremendous pain. For now plan as aboveclose vigilance, serial ABGs if needed, BiPAP, supportive care. Reversal agents only if he is not responding to the plan. Case signed out to overnight coverage [id number].
[2022-11-08] MEDS: ASPIRIN 81 MG ECTAB PO SCH (21:41)
[2022-11-08] MEDS: POLYETHYLENE (MIRALAX) 17 GM PACK PO SCH (21:42)
[2022-11-08] MEDS: DULoxetine HCL 60 MG CAP PO SCH (21:42)
[2022-11-08] MEDS: traZODone HCL 50 MG TAB PO SCH (21:43)
--- NOTE | 2022-11-08 22:09 | Electrocardiogram Report ---
Test Reason : Blood Pressure : / mmHG Vent. Rate : 074 BPM Atrial Rate : 074 BPM P-R Int : 208 ms QRS Dur : 106 ms QT Int : 414 ms P-R-T Axes : 022 -13 008 degrees QTc Int : 459 ms Atrial-paced rhythm Inferior infarct , age undetermined Abnormal ECG When compared with ECG of 04-NOV-2022 17:04, Electronic atrial pacemaker has replaced Sinus rhythm Confirmed by Pedro Burks ([id number]) on 11/08/2022 10:08:50 PM Referred By: REFERRED SELF Confirmed By:Pedro Burks
[2022-11-08] MEDS: DAPTOmycin 525 MG in SYRINGE 0 ML IV SCH (22:22)
[2022-11-08 23:26] LABS: Base Excess ABG 5.8 mEq/L (-9-1.8); HCO3 ABG 31 mmol/L (19-24); Oxygen Saturation ABG 99.2 % (90-95); PCO2 ABG 47 mmHg (35-46); PO2 ABG 96 mmHg (80-95); pH ABG 7.43 (7.35-7.45)
[2022-11-08 23:33] LABS: Allen Test Pos (Pos)
[2022-11-09] MEDS: CLOBETASOL 0.05% SCH ×2 (00:17→10:33)
[2022-11-09] MEDS: SODIUM CHLORIDE 0.9% 1000ML 1,000 ML IV SCH ×4 (00:59→20:56)
[2022-11-09] MEDS: LIDOCAINE 5% OINT 30 GM TUBE TOP SCH ×4 (00:59→20:21)
[2022-11-09] MEDS: PIPERACILLIN/TAZOBACTAM 4.5 GM in DEXTROSE 5% 100 ML IV SCH ×3 (04:19→20:53)
--- NOTE | 2022-11-09 07:17 | Anesthesiology Consultation ---
Date of Service November 09, 2022 Assessment & Plan (1) Encounter for pre-operative examination: Chart Review Chart Review: Acceptable Risk for Surgery and Patient NOT seen in Pre Admission Testing Consults Requested none History Surgery Operation Date: 11/09/22 09:40 Proposed Procedures p Incision and Drainage Lumbar - Barry Almaraz DO s Possible Removal Hardware Thoracic Spine - Barry Almaraz DO Height/Weight Height: 5 ft 6 in Weight: 125.5 kg Allergies Allergy/AdvReac Type Severity Reaction Status Date / Time erythromycin base Allergy Severe Anaphylaxis Verified 10/07/22 09:38 Fish Containing Products Allergy Severe THROAT Verified 10/07/22 09:38 SWELLS loratadine Allergy Severe BREATHING Verified 10/07/22 09:38 DIFFICULTY shellfish derived Allergy Severe throat Verified 10/07/22 09:38 gets scratchy diphenhydramine Allergy Intermediate HIVES Verified 10/07/22 09:38 Macrolide Antibiotics Allergy Intermediate E-MYCIN=HIVES; Verified 10/07/22 09:38 "MYCINS"--JAUNDICE rofecoxib AdvReac Severe CHEST PAIN Verified 10/07/22 09:38 zolpidem AdvReac Severe NIGHTMARES Verified 10/07/22 09:38 oxycodone AdvReac Intermediate TERRIBLE Verified 10/07/22 09:38 DREAMS,DISORIENTATION Medications Home Medications Medication Instructions Recorded Confirmed Last Taken calcium carbonate 500 mg-vitamin 1 tab PO BID 12/05/18 11/04/22 11/04/22 D3 5 mcg (200 unit) tablet (Calcium 500 + D) clopidogrel 75 mg tablet (Plavix) 75 mg PO QAM 12/05/18 11/04/22 11/04/22 coenzyme Q10 100 mg capsule 100 mg PO HS 12/05/18 11/04/22 11/03/22 (CoQ-10) docusate sodium 100 mg tablet 100 mg PO TID 12/05/18 11/04/22 11/04/22 fluticasone propionate 50 1 spray intranasal QAM PRN Nasal 12/05/18 11/04/22 10/07/22 06:30 mcg/actuation nasal Congestion spray,suspension (Flonase Allergy Relief) multivitamin 1 tab PO QAM 12/05/18 11/04/22 11/04/22 nitroglycerin 0.4 mg sublingual 1 tab sublingual UD PRN Chest Pain 12/05/18 11/04/22 Unknown tablet (Nitrostat) duloxetine 60 mg capsule,delayed 60 mg PO HS 12/06/18 11/04/22 11/03/22 release sennosides 8.6 mg tablet 8.6 mg PO BID 12/06/18 11/04/22 11/04/22 trazodone 50 mg tablet 25 mg PO HS 12/06/18 11/04/22 11/03/22 omeprazole 20 mg capsule,delayed 20 mg PO BID 04/15/20 11/04/22 11/04/22 release metformin 1,000 mg tablet 1,000 mg PO BID 07/02/20 11/04/22 11/04/22 lidocaine 5 % topical ointment 1 applic topical Q6H FOOT & BACK 07/10/20 11/04/22 11/04/22 PAIN mirabegron 50 mg tablet,extended 50 mg PO QAM 07/10/20 11/04/22 11/04/22 release 24 hr (Myrbetriq) bisacodyl 10 mg rectal suppository 10 mg GA QAM PRN Constipation 09/24/20 11/04/22 02/13/22 (Dulcolax (bisacodyl)) polyethylene glycol 3350 17 17 g PO HS 09/24/20 11/04/22 11/03/22 gram/dose oral powder (Miralax) tizanidine 4 mg capsule 4 mg PO TID 09/24/20 11/04/22 11/04/22 aspirin 81 mg tablet,delayed 81 mg PO HS 10/30/20 11/04/22 11/03/22 release alendronate 70 mg tablet 70 mg PO WK 02/13/22 11/04/22 11/01/22 bacitracin zinc 500 unit/gram 1 applic topical QAM PRN Skin 02/13/22 11/04/22 10/06/22 11:00 topical ointment Irritation carvedilol 12.5 mg tablet 6.25 mg PO BID 02/13/22 11/04/22 11/04/22 cholecalciferol (vitamin D3) 25 50 mcg PO QDL 02/13/22 11/04/22 11/04/22 mcg (1,000 unit) capsule (Vitamin D3) clotrimazole 1 % topical cream 1 applic topical BID PRN SKIN 02/13/22 11/04/22 02/13/22 IRRITATION ON CHEST cyanocobalamin (vitamin B-12) 500 1,000 mcg PO DAILY 02/13/22 11/04/22 11/04/22 mcg tablet (Vitamin B-12) furosemide 40 mg tablet 40 mg PO QAM 02/13/22 11/04/22 11/04/22 lidocaine 5 % topical patch 1 patch transdermal ONAMOFFPM PRN 02/13/22 11/04/22 02/11/22 Back Pain lidocaine HCl 2 % mucosal jelly 1 applic topical DIRECTED PRN 02/13/22 11/04/22 10/06/22 10:00 BOWEL PROGRAM nitroglycerin 400 mcg/spray 1 spray translingual UD PRN Chest 02/13/22 11/04/22 Unknown translingual Pain nystatin 100,000 unit/gram topical 1 applic topical BID PRN Skin 02/13/22 11/04/22 10/06/22 12:00 powder Irritation ramipril 10 mg capsule 10 mg PO BID 02/13/22 11/04/22 11/04/22 spironolactone 25 mg tablet 25 mg PO QAM 02/13/22 11/04/22 11/04/22 baclofen 10 mg tablet 10 mg PO QID PRN MUSCLE SPASMS 02/14/22 11/04/22 10/05/22 14:00 pregabalin 225 mg capsule 225 mg PO BID 02/14/22 11/04/22 11/04/22 benzonatate 100 mg capsule 100 mg PO TID PRN cough #15 caps 04/22/22 11/04/22 Unknown carboxymethylcellulose sodium 0.5 1 drp OPL QID 04/22/22 11/04/22 11/04/22 % eye drops cetirizine 10 mg tablet (Zyrtec) 10 mg PO QAM 04/22/22 11/04/22 11/04/22 citric ac 1980.6 mg-glucono 59.4 30 ml irrigation DAILY PRN 04/22/22 11/04/22 10/06/22 11:30 mg-mag carb 980.4 mg/30 mL NEEDED irrig.soln (Renacidin) clobetasol 0.05 % scalp solution 1 applic topical BID PRN EAR 04/22/22 11/04/22 Unknown DERMATITIS dantrolene 25 mg capsule 25 mg PO TID 04/22/22 11/04/22 11/04/22 desonide 0.05 % topical cream 1 applic topical BID PRN SKIN 04/22/22 11/04/22 Unknown IRRITATION ON FACE magnesium oxide 420 mg tablet 420 mg PO DAILY 04/22/22 11/04/22 11/04/22 phenylephrine 0.25 %-pramoxine 1 1 applic GA HS PRN Hemorrhoids 04/22/22 11/04/22 Unknown %-glycerin-wh.petrolatum rectal cream (Hemorrhoidal Cream) pitavastatin magnesium 4 mg tablet 4 mg PO HS 04/22/22 11/04/22 11/03/22 sodium chloride 0.65 % nasal spray 1 spray intranasal Q2H PRN NASAL 04/22/22 11/04/22 Unknown aerosol (Saline Nasal) DRYNESS Minie Ememez Plus 1 dose GA QAM 09/02/22 11/04/22 11/04/22 hydrocodone 10 mg-acetaminophen 1 tab PO Q4 PRN Pain 11/04/22 11/04/22 11/03/22 325 mg tablet semaglutide 1 mg/dose (2 mg/1.5 1 mg subcut WK 11/04/22 11/04/22 11/04/22 mL) subcutaneous pen injector 1 day late (Ozempic) Active Medications Generic Name Dose Route Start Last Admin Trade Name Freq PRN Reason Stop Dose Admin Acetaminophen 650 mg 11/04/22 22:01 11/06/22 21:06 Acetaminophen 325 Mg Tab PO 12/04/22 22:00 650 mg Q4H PRN Administration Pain or Fever Hydrocodone Bitart/Acetaminophen 1 tab 11/04/22 22:01 11/08/22 16:15 Hydrocodone/Acetaminophen 10/325 Tab PO 11/18/22 22:00 1 tab Q4 PRN Administration Pain Artificial Tears 1 drops 11/05/22 09:00 11/08/22 22:22 Artificial Tears OP 12/05/22 08:59 1 drops QID JANET Administration Aspirin 81 mg 11/05/22 21:00 11/08/22 21:41 Aspirin 81 Mg Ectab PO 12/05/22 20:59 Not Given HS JANET Baclofen 10 mg 11/07/22 09:00 01/08/23 21:41 Baclofen 10 Mg Tab PO 12/07/22 08:59 Not Given QID JANET Calcium/Vitamin D 1 tab 11/05/22 09:00 11/08/22 21:41 Calcium 600mg + Vit D 400 Iu Tab PO 12/05/22 08:59 Not Given BID JANET Carvedilol 6.25 mg 11/05/22 09:00 11/08/22 21:42 Carvedilol 6.25 Mg Tab PO 12/05/22 08:59 Not Given BID JANET Cetirizine HCl 10 mg 11/05/22 09:00 11/08/22 09:48 Cetirizine Hcl 10 Mg Tablet PO 12/05/22 08:59 10 mg QAM JANET Administration Clopidogrel Bisulfate 75 mg 11/05/22 09:00 11/08/22 09:47 Clopidogrel Bisulfate 75 Mg Tab PO 12/05/22 08:59 75 mg QAM JANET Administration Cyanocobalamin 1,000 mcg 11/05/22 12:00 11/08/22 12:03 Cyanocobalamin (B-12) 500 Mcg Tablet PO 12/05/22 11:59 1,000 mcg DAILY@1200 JANET Administration Dantrolene Sodium 25 mg 11/05/22 09:00 11/08/22 21:42 Dantrolene Sodium 25 Mg Cap PO 12/05/22 08:59 Not Given TID JANET Docusate Sodium 100 mg 11/05/22 09:00 11/08/22 21:42 Docusate Sodium 100 Mg Cap PO 12/05/22 08:59 Not Given TID JANET Duloxetine HCl 120 mg 11/07/22 21:00 11/08/22 21:42 Duloxetine Hcl 60 Mg Cap PO 12/07/22 20:59 Not Given HS JANET Enalapril Maleate 20 mg 11/05/22 09:00 11/08/22 21:42 Enalapril Maleate 10 Mg Tab PO 12/05/22 08:59 Not Given BID [facility] Enoxaparin Sodium 40 mg 11/05/22 00:00 11/08/22 09:48 Enoxaparin Inj 40 Mg/0.4 Ml Syr SQ 12/05/22 00:00 40 mg Q12 JANET Administration Furosemide 40 mg 11/05/22 09:00 11/08/22 09:48 Furosemide 40 Mg Tab PO 12/05/22 08:59 40 mg QAM JANET Administration Piperacillin Sod/Tazobactam 120 mls @ 30 mls/hr 11/08/22 04:00 11/09/22 04:19 Sod 4.5 gm/ Dextrose IV 12/20/22 03:59 30 mls/hr Q8H JANET Administration Protocol Daptomycin 525 mg/ Syringe 10.5 mls @ 5.25 mls/min 11/07/22 22:00 11/08/22 22:22 IV 12/19/22 21:59 5.25 mls/min Q24H JANET Administration Protocol Sodium Chloride 1,000 mls @ 150 mls/hr 11/08/22 11:15 11/09/22 00:59 Nss 1000ml IV 11/09/22 11:14 150 mls/hr .Q6H40M JANET Administration Insulin Aspart 0 units 11/05/22 07:30 11/08/22 20:32 Insulin Aspart Per Unit SC 12/05/22 07:29 Not Given ACHS JANET Lidocaine 1 appln 11/05/22 06:00 11/09/22 06:41 Lidocaine 5% Oint 30 Gm Tube TOP 12/05/22 05:59 1 appln Q6 JANET Administration Lidocaine 1 patch 11/05/22 09:00 11/08/22 09:48 Lidocaine 5% 1 Patch TD 12/05/22 08:59 1 patch DAILY JANET Administration Magnesium Oxide 400 mg 11/05/22 09:00 11/08/22 09:48 Magnesium Oxide 400 Mg Tab PO 12/05/22 08:59 400 mg DAILY JANET Administration Mirabegron 50 mg 11/05/22 09:00 11/08/22 09:47 Mirabegron Er 25 Mg Tab PO 12/05/22 08:59 50 mg QAM JANET Administration Miscellaneous 1 each 11/05/22 00:00 11/09/22 00:17 Clobetasol 0.05 % Solution - Order Awaiting Action N/A 12/05/22 00:00 Not Given QS JANET Miscellaneous 1 each 11/04/22 23:30 11/08/22 21:43 Remove Lidoderm Patch N/A 12/04/22 23:29 1 each DAILY@2100 JANET Administration Miscellaneous 1 each 11/05/22 08:00 11/09/22 00:17 Lidocaine 2% Jelly - Order Awaiting Action N/A 12/05/22 07:59 Not Given QS JANET Renacidin ~ Non- 1 each 11/05/22 15:30 11/08/22 15:51 Formulary Patient's IR 12/05/22 15:29 30 ml Own Med PRN JANET Administration Enemeez ~ Non- 1 each 11/06/22 09:00 11/08/22 09:48 Formulary Patient's GA 12/06/22 08:59 5 ml Own Med QAM JANET Administration Ondansetron HCl 4 mg 11/07/22 20:58 11/08/22 13:33 Ondansetron Inj 2 Mg/Ml 2 Ml Vial IV 12/04/22 22:00 4 mg Q4H PRN Administration Nausea Pantoprazole Sodium 40 mg 11/05/22 09:00 11/08/22 21:42 Pantoprazole 40 Mg Tab PO 12/05/22 08:59 Not Given BID JANET Polyethylene Glycol 17 gm 11/05/22 21:00 11/08/22 21:42 Polyethylene (Miralax) 17 Gm Pack PO 12/05/22 20:59 Not Given HS JANET Pregabalin 225 mg 11/05/22 09:00 11/08/22 21:42 Pregabalin 75 Mg Cap PO 12/05/22 08:59 Not Given BID JANET Sennosides 8.6 mg 11/05/22 09:00 11/08/22 21:43 Senna 8.6 Mg Tab PO 12/05/22 08:59 Not Given BID JANET Spironolactone 25 mg 11/05/22 09:00 11/08/22 09:48 Spironolactone 25 Mg Tab PO 12/05/22 08:59 25 mg QAM JANET Administration Tizanidine HCl 4 mg 11/05/22 09:00 11/08/22 21:43 Tizanidine Hcl 4 Mg Tablet PO 12/05/22 08:59 Not Given TID JANET Trazodone HCl 25 mg 11/05/22 21:00 11/08/22 21:43 Trazodone Hcl 50 Mg Tab PO 12/05/22 20:59 Not Given HS JANET Vitamin D 2,000 units 11/05/22 11:30 11/08/22 12:03 Cholecalciferol 1,000 Units 25 Mcg Tab PO 12/05/22 11:29 2,000 units QDL JANET Administration Past Medical History Medical History Aortic aneurysm UNDER SURVEILLANCE BY VASCULAR (TESSIE) Aortic insufficiency mild on 05/2022 echo Aortic stenosis mild to moderate, 05/2022 echo Atrial fibrillation CAD (coronary artery disease) s/p 6 stents, most recent in 2011 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 Depression Diabetes mellitus, type 2 NIDDM 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 moderately enlarged 4.4 cm GERD (gastroesophageal reflux disease) controlled, stable per pt History of COVID-19 10/18/20>hospitalized for SBO, COVID symptoms resolved History of intestinal obstruction NO SURGERY REQUIRED History of pressure ulcer NOTHING CURRENT NOW>"NOTHING OPENED, REDNESS ONLY" Hyperlipidemia Hypertension controlled, stable per pt Morbid obesity Myocardial Infarction X4 - LAST WAS 2011 Neurogenic bladder indwelling supra-pubic catheter Neurogenic bowel see med list for bowel regimen Pacemaker MEDTRONIC; 2/ SYMPTOMATIC BRADYCARDIA- LAST PACER CHECK/STACY 08/13/22 Paralysis PARLYSIS/PARATHESIA OF B/L LOWER EXTREMITIES FOLLOWING LOWER THORACIC INTERBODY FUSION 11/2017 Renal lesion new 1.6 cm enhancing cortical lesion suggested in the interpolar left kidney. 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 - Baclofen 10mg q6h due to worsening confusion overnight, with prn dosing if spasms not controlled. - Neurology consulted and appreciate recommendations, case discussed with Dr. Nguyen: Suspect pain is triggering spasms, consider Ativan q8h as needed for spasms/pain. Some concern about functioning of intrathecal baclofen pump given increased spasms. Pain Management consulted. - On CTAP for different cause patient noted to have T4-5 findings possibly suggestive of discitis/osteomyelitis. Patient did have fevers on admission but no fevers since on 3rd gen cephalosporins. No septic signs. WBC count normal. Unfortunately cannot get MRI as patient's baclofen pump was refilled on 10/28. - Dapto/Zosyn started evening 11/07; Ortho Spine consulted and patient made NPO at midnight for I+D and possible hardware removal 11/[address] Almaraz. Start on NSS at 150cc/hr to continue until late morning 11/09. Case discussed with Dr. Almaraz. (5) CAD (coronary artery disease): Plan: - History of multiple ZOFIA placement including PCI of the LAD, unstable angina 2002 s/p PCI to RCA, and catheterization August 2012 with PCI to LAD. - Negative dobutamine stress echo/EKG in September. Past Family History Family History Other No family history of adverse response to anesthesia Past Surgical History Surgical History Fusion of spine T9-T11 Removal of Hardware, T5-T11 Decompression and Fusion: 12/13/18: Grade view 1, MAC#3, ETT 8.5 at [facility] "fused from T6-S1" T9-T12 Grade 1 view, MAC 3, ETT 8 11/22/17: "...no voluntary movement in his lower extremities...no sensation noted below approx inguinal ligament bilat...to be monitored on med-surgical floor...Dr. Almaraz will start...steroid protocol..." H/O sinus surgery History of arthroscopic surgery of shoulder X2 (LEFT) 09/20/15 LMA 5 + PNB. Post-op note: "...in the PACU he was initially hypertensive with BP 170s/110s...given labetalol and hydralazine...now 140s/80s...HR remained in the 60s to 70s...SpO2 has been in the high 90s..." History of back surgery X4 History of cardiac cath X15; TOTAL OF 6 STENTS (STENT PLACED LAST 2011) History of cardiac pacemaker History of cholecystectomy History of cystoscopy History of gastric bypass GASTRIC SLEEVE PROCEDURE History of tonsillectomy and adenoidectomy History of tooth extraction History of total knee replacement B/L S/P cervical spinal fusion C5-6 limited rom S/P UPPP (uvulopalatopharyngoplasty) Status post insertion of intrathecal baclofen pump May 2020-Prometra pump at [facility] Social History Smoking Status: Former smoker tobacco type: cigarettes Do You Dip or Chew Tobacco: No Hx Alcohol Use: No Alcohol type: hard liquor alcohol intake frequency: a few times a month Hx Substance Use: No substance use type: does not use Physical Exam Vital Signs Last Vital Signs Temp 36.5 C 11/09/22 06:43 Pulse 81 11/09/22 06:43 Resp 18 11/09/22 06:43 BP 164/78 H 11/09/22 06:43 Pulse Ox 96 11/09/22 06:43 O2 Del Method 11/09/22 06:43 O2 Flow Rate 2 11/07/22 20:29 FiO2 30 11/09/22 03:22 Testing Laboratory Results 11/08/22 06:20 11/08/22 06:20 Urine Color Yellow 11/04/22 Unknown Urine Appearance Cloudy (Clear) A 11/04/22 Unknown Urine pH 8.0 (4.5-7.5) H 11/04/22 Unknown Ur Specific [place] > 1.045 (1.000-1.030) H 11/04/22 Unknown Urine Protein Negative (Negative) 11/04/22 Unknown Urine Glucose (UA) Negative (Negative) 11/04/22 Unknown Urine Ketones Negative (Negative) 11/04/22 Unknown Urine Nitrite Positive (Negative) A 11/04/22 Unknown Ur Leukocyte Esterase 3+ (Negative) H 11/04/22 Unknown Urine WBC (Auto) >30 /hpf (0-5) H 11/04/22 Unknown Urine RBC (Auto) 5-10 /hpf (0-4) H 11/04/22 Unknown U Hyaline Cast (Auto) 5-10 /lpf (0-5) H 11/04/22 Unknown U Epithel Cells (Auto) 10-20 /lpf (0-5) H 11/04/22 Unknown Urine Bacteria (Auto) 2+ (Negative) H 11/04/22 Unknown 11/04/22 Unknown Urine Culture - Final Urine,Straight Cath Morganella morganii Escherichia coli 11/04/22 17:06 Aerobic Blood Culture - Final Blood Coag neg staph not lugdunensis Anaerobic Blood Culture - Final 11/04/22 23:23 Aerobic Blood Culture - Preliminary Blood No growth in Aerobic bottle after 48 hours. Anaerobic Blood Culture - Preliminary No growth in Anaerobic bottle after 48 hours. 11/08/22 20:25 POC Glucose 131 H Electrocardiogram Date: 11/04/22 DICTATED BY:Pedro Burks MD Test Reason : Blood Pressure : / mmHG Vent. Rate : 074 BPM Atrial Rate : 074 BPM P-R Int : 208 ms QRS Dur : 106 ms QT Int : 414 ms P-R-T Axes : 022 -13 008 degrees QTc Int : 459 ms Atrial-paced rhythm Inferior infarct , age undetermined Abnormal ECG When compared with ECG of 04-NOV-2022 17:04, Electronic atrial pacemaker has replaced Sinus rhythm Confirmed by Pedro Burks ([id number]) on 11/08/2022 10:08:50 PM Chest X-Ray Date: 10/07/22 XR chest 1V portable HISTORY: Possible aspiration. Assess for pneumonia. Aspiration? COMPARISON: Chest 10/10/2022. FINDINGS: No pneumothorax. No pleural effusions. The heart remains mildly enlarged. Is left-sided dual-chamber pacemaker. Cervical and thoracic spinal fusion hardware is noted. No evidence for pulmonary edema. Patchy right middle lobe airspace opacities are new from the prior study. This could be due to an aspiration pneumonitis. IMPRESSION: There are new patchy right middle lobe airspace opacities. This may represent an aspiration pneumonitis. Other Testing Dobutamine stress echo: Negative for inducible ischemia. EKG showed no evidence of ischemia LV wall motion is normal LV wall motion with stress is normal EF 60-64% Mild present
--- NOTE | 2022-11-09 08:34 | Pain Management Consultation ---
Date of Consultation November 09, 2022 Assessment & Plan (1) Discitis of thoracic region: (2) Altered mental status: (3) Sepsis secondary to UTI: (4) Hallucinations: (5) Paralysis: (6) Neurogenic bladder: (7) Spastic paraparesis: (8) Status post insertion of intrathecal baclofen pump: Plan 1. Unable to interrogate intrathecal pump as the pump is Prometra brand, not Medtronic. Patient's will have his recent pump refill information uploaded onto the patient portal for review. There is no alarming from the pump and clinically he does not appear in Baclofen withdrawal. 2. Recommend continuation of current medications of dantrolene, Lyrica, tizanidine, baclofen, Cymbalta, hydrocodone. There is concern for polypharmacy given confusion and respiratory depression. As infection improves, his spasms should improve and could then consider weaning down on muscle relaxers. 3. Patient is going to the OR today for thoracic spine I&D. Please contact with any questions or concerns. History of Present Illness Reason for Consultation: Pain and spasm Attending Physician: Salas Gan MD History of Present Illness Mr. Snyder is a 67 year old male with spinal cord injury, spastic paraparesis, and diabetes mellitus. He is found to have UTI and T4-5 discitis requiring I&D of the thoracic spine which is scheduled for today. He has been struggling with thoracic back pain and lower extremity spasms. He does have a Prometra baclofen pump that is managed by Dr. Crocker at [facility] - last filled 10/28/22 by [facility]. Patient and his deny hearing any alarming from the pump. Patient's will have his last pump report sent for review. Orally he is receiving dantrolene 25 mg 3 times daily, tizanidine 4mg 3 times daily, baclofen 10 mg 4 times daily. For pain he is on Lyrica 225 mg twice daily, Cymbalta 120 mg daily, and hydrocodone 10/325 every 4 hours if needed. Case discussed with Dr. Kecia Ruiz Allergies Allergy/AdvReac Type Severity Reaction Status Date / Time erythromycin base Allergy Severe Anaphylaxis Verified 10/07/22 09:38 Fish Containing Products Allergy Severe THROAT Verified 10/07/22 09:38 SWELLS loratadine Allergy Severe BREATHING Verified 10/07/22 09:38 DIFFICULTY shellfish derived Allergy Severe throat Verified 10/07/22 09:38 gets scratchy diphenhydramine Allergy Intermediate HIVES Verified 10/07/22 09:38 Macrolide Antibiotics Allergy Intermediate E-MYCIN=HIVES; Verified 10/07/22 09:38 "MYCINS"--JAUNDICE rofecoxib AdvReac Severe CHEST PAIN Verified 10/07/22 09:38 zolpidem AdvReac Severe NIGHTMARES Verified 10/07/22 09:38 oxycodone AdvReac Intermediate TERRIBLE Verified 10/07/22 09:38 DREAMS,DISORIENTATION Home Medications Medication Instructions Recorded Confirmed Type calcium carbonate 500 mg-vitamin 1 tab PO BID 12/05/18 11/04/22 History D3 5 mcg (200 unit) tablet (Calcium 500 + D) clopidogrel 75 mg tablet (Plavix) 75 mg PO QAM 12/05/18 11/04/22 History coenzyme Q10 100 mg capsule 100 mg PO HS 12/05/18 11/04/22 History (CoQ-10) docusate sodium 100 mg tablet 100 mg PO TID 12/05/18 11/04/22 History fluticasone propionate 50 1 spray intranasal QAM PRN Nasal 12/05/18 11/04/22 History mcg/actuation nasal Congestion spray,suspension (Flonase Allergy Relief) multivitamin 1 tab PO QAM 12/05/18 11/04/22 History nitroglycerin 0.4 mg sublingual 1 tab sublingual UD PRN Chest Pain 12/05/18 11/04/22 History tablet (Nitrostat) duloxetine 60 mg capsule,delayed 60 mg PO HS 12/06/18 11/04/22 History release sennosides 8.6 mg tablet 8.6 mg PO BID 12/06/18 11/04/22 History trazodone 50 mg tablet 25 mg PO HS 12/06/18 11/04/22 History omeprazole 20 mg capsule,delayed 20 mg PO BID 04/15/20 11/04/22 History release metformin 1,000 mg tablet 1,000 mg PO BID 07/02/20 11/04/22 History lidocaine 5 % topical ointment 1 applic topical Q6H FOOT & BACK 07/10/20 3 History PAIN mirabegron 50 mg tablet,extended 50 mg PO QAM 07/10/20 11/04/22 History release 24 hr (Myrbetriq) bisacodyl 10 mg rectal suppository 10 mg LA QAM PRN Constipation 09/24/20 11/04/22 History (Dulcolax (bisacodyl)) polyethylene glycol 3350 17 17 g PO HS 09/24/20 11/04/22 History gram/dose oral powder (Miralax) tizanidine 4 mg capsule 4 mg PO TID 09/24/20 11/04/22 History aspirin 81 mg tablet,delayed 81 mg PO HS 10/30/20 11/04/22 History release alendronate 70 mg tablet 70 mg PO WK 02/13/22 11/04/22 History bacitracin zinc 500 unit/gram 1 applic topical QAM PRN Skin 02/13/22 11/04/22 History topical ointment Irritation carvedilol 12.5 mg tablet 6.25 mg PO BID 02/13/22 11/04/22 History cholecalciferol (vitamin D3) 25 50 mcg PO QDL 02/13/22 11/04/22 History mcg (1,000 unit) capsule (Vitamin D3) clotrimazole 1 % topical cream 1 applic topical BID PRN SKIN 02/13/22 11/04/22 History IRRITATION ON CHEST cyanocobalamin (vitamin B-12) 500 1,000 mcg PO DAILY 02/13/22 11/04/22 History mcg tablet (Vitamin B-12) furosemide 40 mg tablet 40 mg PO QAM 02/13/22 11/04/22 History lidocaine 5 % topical patch 1 patch transdermal ONAMOFFPM PRN 02/13/22 11/04/22 History Back Pain lidocaine HCl 2 % mucosal jelly 1 applic topical DIRECTED PRN 02/13/22 11/04/22 History BOWEL PROGRAM nitroglycerin 400 mcg/spray 1 spray translingual UD PRN Chest 02/13/22 11/04/22 History translingual Pain nystatin 100,000 unit/gram topical 1 applic topical BID PRN Skin 02/13/22 11/04/22 History powder Irritation ramipril 10 mg capsule 10 mg PO BID 02/13/22 11/04/22 History spironolactone 25 mg tablet 25 mg PO QAM 02/13/22 11/04/22 History baclofen 10 mg tablet 10 mg PO QID PRN MUSCLE SPASMS 02/14/22 11/04/22 History pregabalin 225 mg capsule 225 mg PO BID 02/14/22 11/04/22 History benzonatate 100 mg capsule 100 mg PO TID PRN cough #15 caps 04/22/22 11/04/22 Rx carboxymethylcellulose sodium 0.5 1 drp OPL QID 04/22/22 11/04/22 History % eye drops cetirizine 10 mg tablet (Zyrtec) 10 mg PO QAM 04/22/22 11/04/22 History citric ac 1980.6 mg-glucono 59.4 30 ml irrigation DAILY PRN 04/22/22 11/04/22 History mg-mag carb 980.4 mg/30 mL NEEDED irrig.soln (Renacidin) clobetasol 0.05 % scalp solution 1 applic topical BID PRN EAR 04/22/22 11/04/22 History DERMATITIS dantrolene 25 mg capsule 25 mg PO TID 04/22/22 11/04/22 History desonide 0.05 % topical cream 1 applic topical BID PRN SKIN 04/22/22 11/04/22 History IRRITATION ON FACE magnesium oxide 420 mg tablet 420 mg PO DAILY 04/22/22 11/04/22 History phenylephrine 0.25 %-pramoxine 1 1 applic LA HS PRN Hemorrhoids 04/22/22 11/04/22 History %-glycerin-wh.petrolatum rectal cream (Hemorrhoidal Cream) pitavastatin magnesium 4 mg tablet 4 mg PO HS 04/22/22 11/04/22 History sodium chloride 0.65 % nasal spray 1 spray intranasal Q2H PRN NASAL 04/22/22 11/04/22 History aerosol (Saline Nasal) DRYNESS Minie Ememez Plus 1 dose LA QAM 09/02/22 11/04/22 History hydrocodone 10 mg-acetaminophen 1 tab PO Q4 PRN Pain 11/04/22 11/04/22 History 325 mg tablet semaglutide 1 mg/dose (2 mg/1.5 1 mg subcut WK 11/04/22 11/04/22 History mL) subcutaneous pen injector (Ozempic) Patient History Medical History Aortic aneurysm UNDER SURVEILLANCE BY VASCULAR (TESSIE) Aortic insufficiency mild on 05/2022 echo Aortic stenosis mild to moderate, 05/2022 echo Atrial fibrillation CAD (coronary artery disease) s/p 6 stents, most recent in 2011 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 Depression Diabetes mellitus, type 2 NIDDM 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 moderately enlarged 4.4 cm GERD (gastroesophageal reflux disease) controlled, stable per pt History of COVID-19 10/18/20>hospitalized for SBO, COVID symptoms resolved History of intestinal obstruction NO SURGERY REQUIRED History of pressure ulcer NOTHING CURRENT NOW>"NOTHING OPENED, REDNESS ONLY" Hyperlipidemia Hypertension controlled, stable per pt Morbid obesity Myocardial Infarction X4 - LAST WAS 2011 Neurogenic bladder indwelling supra-pubic catheter Neurogenic bowel see med list for bowel regimen Pacemaker MEDTRONIC; 12/03 SYMPTOMATIC BRADYCARDIA- LAST PACER CHECK/STACY 08/13/22 Paralysis PARLYSIS/PARATHESIA OF B/L LOWER EXTREMITIES FOLLOWING LOWER THORACIC INTERBODY FUSION 11/2017 Renal lesion new 1.6 cm enhancing cortical lesion suggested in the interpolar left kidney. This is highly suspicious for renal cell carcinoma, and follow-up with urology is recommended-they report monitoring CT in [address] Bran Nova with [facility] Rotator cuff tear rt Sleep apnea CPAP RECALLED>USING O2 AT 2L HS 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 Suprapubic catheter Surgical History Fusion of spine T9-T11 Removal of Hardware, T5-T11 Decompression and Fusion: 12/13/18: Grade view 1, MAC#3, ETT 8.5 at [facility] "fused from T6-S1" T9-T12 Grade 1 view, MAC 3, ETT 8 11/22/17: "...no voluntary movement in his lower extremities...no sensation noted below approx inguinal ligament bilat...to be monitored on med-surgical floor...Dr. Almaraz will start...steroid protocol..." H/O sinus surgery History of arthroscopic surgery of shoulder X2 (LEFT) 09/20/15 LMA 5 + PNB. Post-op note: "...in the PACU he was initially hypertensive with BP 170s/110s...given labetalol and hydralazine...now 140s/80s...HR remained in the 60s to 70s...SpO2 has been in the high 90s..." History of back surgery X4 History of cardiac cath X15; TOTAL OF 6 STENTS (STENT PLACED LAST 2011) History of cardiac pacemaker History of cholecystectomy History of cystoscopy History of gastric bypass GASTRIC SLEEVE PROCEDURE History of tonsillectomy and adenoidectomy History of tooth extraction History of total knee replacement B/L S/P cervical spinal fusion C5-6 limited rom S/P UPPP (uvulopalatopharyngoplasty) Status post insertion of intrathecal baclofen pump May 2020-Prometra pump at [facility] Family History Other No family history of adverse response to anesthesia Social History Smoking Status: Former smoker Tobacco Type: Cigarettes Second Hand Exposure: Yes ( A CHILD); Do You Dip or Chew Tobacco: No; Hx Alcohol Use: No Hx Substance Use: No Preferred Language: Pashto Communication Ability: Effective Visual Impairment: No Limitations Hearing Ability: Normal Molding Line Assistant Required: No Beliefs That Will Affect Care: Jain Jain Beliefs: SHINTO marital status: Current Living Situation: Spouse Current Living Situation Comment: 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 Accompanied by his . HEAD/FACE: Normocephalic and atraumatic. EYES: No drainage or conjunctival injection. ENT: Nose without bleeding or discharge. Oral mucosa moist. NECK: Full ROM without apparent pain. No swelling or masses noted. RESPIRATORY: Patient with unlabored breathing. No signs of respiratory distress. CHEST/AXILLA: Chest movement symmetrical. No deformities noted. CARDIOVASCULAR: Patients heart rate is regular, with pulse rate as documented. No edema noted. ABDOMEN/GI: No distension. Intrathecal pump is located in the right abdomen. No mobility noted. BACK: Moves without difficulty SKIN: [place], warm and dry. No rash noted. MS/EXTREMITY: No spontaneous spasticity of the lower extremities noted during visit. NEURO: Alert. He is frequently repeating himself. Difficulty answering questions - provides answers. PSYCH: Alert, pleasant, affect is calm
[2022-11-09] MEDS: INSULIN ASPART PER UNIT SC SCH ×4 (09:22→20:31)
[2022-11-09] MEDS: ENEMEEZ PR SCH (09:58)
[2022-11-09] MEDS: LIDOCAINE 5% 1 PATCH TD SCH (10:01)
[2022-11-09] MEDS: CALCIUM 600MG + VIT D 400 IU TAB PO SCH ×2 (10:02→20:20)
[2022-11-09] MEDS: ARTIFICIAL TEARS OP SCH ×4 (10:02→20:21)
[2022-11-09] MEDS: MAGNESIUM OXIDE 400 MG TAB PO SCH (10:02)
[2022-11-09] MEDS: FUROSEMIDE 40 MG TAB PO SCH (10:02)
[2022-11-09] MEDS: carvediloL 6.25 MG TAB PO SCH ×2 (10:02→20:19)
[2022-11-09] MEDS: SPIRONOLACTONE 25 MG TAB PO SCH (10:03)
[2022-11-09] MEDS: CETIRIZINE HCL 10 MG TABLET PO SCH (10:03)
[2022-11-09] MEDS: ENALAPRIL MALEATE 10 MG TAB PO SCH ×2 (10:03→20:19)
[2022-11-09] MEDS: CHOLECALCIFEROL 1,000 UNITS 25 MCG TAB PO SCH (10:04)
[2022-11-09] MEDS: DOCUSATE SODIUM 100 MG CAP PO SCH ×3 (10:04→20:26)
[2022-11-09] MEDS: SENNA 8.6 MG TAB PO SCH ×2 (10:05→20:51)
[2022-11-09] MEDS: PANTOprazole 40 MG TAB PO SCH ×2 (10:05→20:20)
[2022-11-09] MEDS: MIRABEGRON ER 25 MG TAB PO SCH (10:06)
[2022-11-09] MEDS: DANTROLENE SODIUM 25 MG CAP PO SCH ×3 (10:39→20:20)
[2022-11-09] MEDS: tiZANidine HCL 4 MG TABLET PO SCH ×3 (10:39→20:18)
[2022-11-09] MEDS: BACLOFEN 10 MG TAB PO SCH ×4 (10:39→20:51)
[2022-11-09] MEDS: PREGABALIN 75 MG CAP PO SCH ×2 (10:39→20:25)
[2022-11-09] MEDS ORDERED: ONDANSETRON INJ 2 MG/ML 2 ML VIAL ONE (12:30)
[2022-11-09] MEDS ORDERED: ROCURONIUM BROMIDE 10 MG/ML 5 ML VIAL IV ONE (12:30)
[2022-11-09] MEDS ORDERED: PROPOFOL IV EMULSION 10 MG/ML 20 ML VIAL IV ONE (12:30)
[2022-11-09] MEDS ORDERED: LIDOCAINE 2% MPF LOCAL 5 ML VIAL INFIL ONE (12:30)
[2022-11-09] MEDS ORDERED: fentaNYL citrate 100 MCG/2 ML VIAL ONE (12:31)
[2022-11-09] MEDS ORDERED: MIDAZOLAM HCL 1 MG/ML 2ML VIAL ONE (12:31)
[2022-11-09] MEDS ORDERED: PHENYLEPHRINE HCL 10 MG/ML VIAL ONE (13:38)
[2022-11-09] MEDS ORDERED: SODIUM CHLORIDE 0.9% 250 ML IV PRN (13:44)
--- NOTE | 2022-11-09 14:03 | History & Physical Bridge Note ---
Date of Service November 09, 2022 History & Physical Bridge Note I have examined the patient, reviewed the History & Physical and in the interval since the performance of the History & Physical I have noted the following changes of clinical significance: no changes noted Irrigation debridement thoracic spine possible hardware removal T4 and T5
[2022-11-09] MEDS ORDERED: VANCOMYCIN HCL 1000MG/20ML VIAL ONE (14:24)
[2022-11-09] MEDS ORDERED: BUPIVACAINE/EPINEPHRINE 0.25% 1:200,000 30 ML VIAL ONE (14:24)
[2022-11-09] MEDS ORDERED: GENTAMICIN SULFATE 40 MG/ML 2 ML VIAL ONE (14:24)
[2022-11-09] MEDS ORDERED: ceFAZolin 330 MG/ML 1 GM VIAL ONE (14:25)
[2022-11-09 14:58] LABS: HCO3 ABG 31 mmol/L (19-24); Oxygen Saturation ABG 98.9 % (90-95); PCO2 ABG 50 mmHg (35-46); PO2 ABG 91 mmHg (80-95)
[2022-11-09 14:59] LABS: Allen Test Pos (Pos)
--- NOTE | 2022-11-09 15:55 | Operative Report ---
Post Operative Report Pre & Post Diagnosis Operation Date: 11/09/22 09:40 Pre-Op Diagnosis: Discitis of thoracic region Post-Op Diagnosis: Loose hardware T5 and T7. No evidence of gross discitis. I identified the patient and participated in the time-out.: Yes Procedure Operation Date: 11/09/22 09:40 Actual Procedures #1 I&D of the thoracic spine with evacuation of seroma. #2 removal of T5 and T7 pedicle screws. #3 placement of antibiotic beads. Surgeon Barry Almaraz, Ui Architect Elham Choudhary Estimated Blood Loss 25 Findings See Below Patient had evidence of a clear seroma in the perioperative bed. Is very small in nature. There is no evidence of gross purulence or avascular tissue. Specimens Cultures of the T4-5 disc space Indications This is a 67-year-old male known to me status post thoracic decompression fusion. He presents with evidence of possible sepsis and concern for discitis at T4-T5. Description of Procedure Patient was met with identified informed consent obtained. Patient was then taken to the operative suite underwent a patient placed in a prone position on the Aldrich table top Montez frame. All bony prominences well-padded eyes inspected to ensure no external pressure placed upon. This point the thoracic spine was prepped and draped no sterile fashion. Sharp dissection with assistance of Bovie cautery performed down to and exposing the upper thoracic spine I did identify 2 small areas of a clear seroma in the perioperative bed. No gross purulence was noted. I then proceeded move the pedicle screws at T5 bilaterally and T7 on the left. I then approached the T4-5 pedicle screws and probed into the disc space and included a direct culture of the disc space at T4 T7. Again no evidence of gross infection was noted. After this complete approximately 5 cc of stimuli and antibiotic beads impregnated with gentamicin vancomycin were placed throughout the incision. There is 15 round ROME drain was then inserted. Incision was closed with 1 Vicryl the fascia 2-0 Vicryl subcutaneously and eloy for final skin closure. Patient was awakened and taken to ICU postoperatively in stable condition. I attest to the content of the Intraoperative Record and any orders documented therein. Any exceptions are noted below.
--- NOTE | 2022-11-09 15:58 | Communication Note ---
Date of Service: November 09, 2022 Patient is an ASA 4E
--- NOTE | 2022-11-09 16:05 | Communication Note ---
Date of Service: November 09, 2022 I have discussed w/ Dr Durbin keeping patient intubated and mechanically ventilated due to his multiple medical co-morbidities, especially DENICE with somnolence requiring BiPap.
--- NOTE | 2022-11-09 16:32 | Fluoroscopy Report ---
INTRAOPERATIVE RADIOGRAPHS CLINICAL HISTORY: Hardware removal. Fluoroscopy time: 8 seconds. FINDINGS: 6 spot fluoroscopic views of the thoracic spine are presented. There is extensive fusion h ardware seen throughout the thoracic spine. Interpedicular screws are present at multiple levels with spinal rods in place. The precise levels cannot be delineated on these spot images. The image of the hardware appears intact. IMPRESSION: Intraoperative images of the thoracic spine as above. Electronically signed by: Viraj Palacios M.D. 11/09/2022 4:31 PM
--- NOTE | 2022-11-09 16:38 | Hospitalist Progress Note ---
Date of Service November 09, 2022 Assessment & Plan (1) Paralysis: Plan: Chronic lower extremity paraplegia related to previous spine surgeries. Supportive care. He has a suprapubic catheter in place. Neurology consult and recommendations appreciated. Pain Management also consulted. Supportive care (2) Discitis of thoracic region: Plan: He has been treated with daptomycin and Zosyn. Discitis ruled out during intraoperative evaluation today, November 09. (3) UTI (urinary tract infection): Plan: Initially started on ceftriaxone after blood and urine cultures collected. E. coli and Morganella morganii isolated. Currently on daptomycin and Zosyn (4) Type 2 diabetes mellitus: Plan: Home meds include metformin, Ozempic. Hold while inpatient. Weight based SSI, Accuchecks ACHS. (5) CAD (coronary artery disease): Plan: - History of multiple ZOFIA placement including PCI of the LAD. Episode of unstable angina 2002. Also s/p PCI to RCA, and catheterization August 2012 with PCI to LAD. Negative dobutamine stress echo/EKG in September. Continue Plavix + ASA. Continue amlodipine, HCTZ, metoprolol, spironolactone. Ramipril switched to enalapril per hospital formulary. (6) A-fib: Plan: Atrial paced, not on anticoagulation as outpatient. ChadsVasc score of 4. Continue metoprolol. (7) Hypertension: Plan: Treated with carvedilol, spironolactone, lisinopril. Switched to ramipril per hospital formulary. (8) Aortic insufficiency: Plan: Noted, stable. (9) Aortic aneurysm: Plan: - Noted, stable. Follows with Vascular Surgery. (10) Neurogenic bladder: Plan: Has a chronic suprapubic catheter. Local care. (11) GERD (gastroesophageal reflux disease): Plan: Continue PPI therapy. Omeprazole switched to pantoprazole per hospital formulary. (12) DENICE (obstructive sleep apnea): Plan: Patient refuses CPAP at night, prefers 2LNC with sleep. Mild hypercapnea noted on ABG. (13) Depression: Plan: Continue duloxetine and trazodone at night. Plan DNR/DNI in non-surgical circumstances Disposition: To be determined Admission and Anticipated Discharge Date Admission Date: November 04, 2022 Subjective The patient was seen preoperatively today, November 09. ABGs were obtained and PCO2 is 50. Postoperatively he remains unabated and now in the intensive care unit. He had surgery with removal of T5 and T7 pedicle screws. Evacuation of seroma. Placement of antibiotic beads. No evidence of thoracic discitis. Review of Systems Review of Systems: The patient is intubated postoperatively. Unable to assess Physical Exam Physical Exam: General-intubated postoperatively. Obese. HEENT-head atraumatic and normocephalic, orotracheal tube in place with ve ntilator support. Neck- trachea midline Chest-clear anteriorly. No rales wheezing or rhonchi Cardiac-regular rate and rhythm, normal S1 and S2 Abdomen-normal bowel sounds, obese Extremities-no cyanosis, clubbing. Bilateral chronic venous stasis changes Neuro-cannot assess due to intubation and somnolent status Psych-cannot assess at this time Results & Data Results & Data ([facility]) Vital Signs (Past 12 Hours) Vital Signs Temp Pulse Pulse Pulse Resp BP BP 11/09/22 13:52 36.8 C 71 14 160/80 H 11/09/22 12:31 36.5 C 69 18 163/90 H 11/09/22 11:31 81 19 11/09/22 09:15 11/09/22 05:55 70 11/09/22 06:43 36.5 C 81 18 164/78 H Pulse Ox O2 Del Method FiO2 11/09/22 13:52 97 BiPAP 11/09/22 12:31 95 BiPAP 11/09/22 11:31 98 25 11/09/22 09:15 BiPAP 11/09/22 05:55 11/09/22 06:43 96 BiPAP Laboratory Results 11/08/22 06:20 11/08/22 06:20 PG Care Time/CCT Total # of Minutes Spent Total Time Spent with Patient: Total time spent is greater than 50% in coordination of care (as documented) at patient's floor/unit and/or counseling patient: Coding Level of Care Code 50326 SUB INP/OBS CARE 3/50MIN Diagnoses Paralysis G83.9 Discitis of thoracic region M46.44 UTI (urinary tract infection) T83.511D; N39.0 Urinary tract infection type: catheter-associated UTI Indwelling urinary catheter type: unspecified Encounter type: subsequent encounter Type 2 diabetes mellitus E11.9 CAD (coronary artery disease) I25.10 A-fib I48.0 Atrial fibrillation type: paroxysmal Hypertension I10 Hypertension type: essential hypertension Aortic insufficiency I35.1 Aortic aneurysm I71.9 Neurogenic bladder N31.9 GERD (gastroesophageal reflux disease) K21.9 DENICE (obstructive sleep apnea) G47.33 Depression F32.9 (1) UTI (urinary tract infection) Urinary tract infection type: catheter-associated UTI Indwelling urinary catheter type: unspecified Encounter type: subsequent encounter Qualified Cod e(s): T83.511D - Infection and inflammatory reaction due to indwelling urethral catheter, subsequent encounter; N39.0 - Urinary tract infection, site not specified (2) A-fib Atrial fibrillation type: paroxysmal Qualified Code(s): I48.0 - Paroxysmal atrial fibrillation (3) Hypertension Hypertension type: essential hypertension Qualified Code(s): I10 - Essential (primary) hypertension
[2022-11-09] MEDS ORDERED: ATROPINE SULFATE 0.1 MG/ML 10ML SYR IV PRN (16:46)
[2022-11-09] MEDS ORDERED: ePHEDrine sulfate 50 MG/ML AMP IV PRN (16:46)
--- NOTE | 2022-11-09 16:52 | Anesthesiology Progress Note ---
Date of Service November 09, 2022 Anesthesia Post Procedure Vital Signs Vital Signs: Temp Pulse Pulse Pulse Resp BP BP 11/09/22 13:52 36.8 C 71 14 160/80 H 11/09/22 12:31 36.5 C 69 18 163/90 H 11/09/22 11:31 81 19 11/09/22 09:15 11/09/22 05:55 70 11/09/22 06:43 36.5 C 81 18 164/78 H 11/09/22 03:22 69 21 11/09/22 02:35 36.4 C L 72 19 178/91 H 11/09/22 02:00 11/08/22 22:36 36.7 C 70 18 143/82 H 11/08/22 23:49 65 11/08/22 21:15 72 11/08/22 22:00 11/08/22 21:07 36.7 C 70 16 129/72 11/08/22 21:03 71 11/08/22 19:25 71 14 11/08/22 18:23 74 18 144/76 H 11/08/22 17:05 36.5 C 71 18 136/74 Pulse Ox Pulse Ox O2 Del Method O2 Del Method FiO2 11/09/22 13:52 97 BiPAP 11/09/22 12:31 95 BiPAP 11/09/22 11:31 98 25 11/09/22 09:15 BiPAP 11/09/22 05:55 11/09/22 06:43 96 BiPAP 11/09/22 03:22 98 30 11/09/22 02:35 98 BiPAP 11/09/22 02:00 96 BiPAP 11/08/22 22:36 97 BiPAP 30 11/08/22 23:49 11/08/22 21:15 11/08/22 22:00 BiPAP 30 11/08/22 21:07 96 BiPAP 30 11/08/22 21:03 97 30 11/08/22 19:25 97 40 11/08/22 18:23 94 Room Air 11/08/22 17:05 96 Room Air Pain Intensity Generalized: Pain Intensity: 4 Bilateral Buttock: Pain Intensity: 5 Pelvic: Pain Intensity: 6 Transfer of Care Handoff Completed per policy Notes Mental Status: alert / awake / arousable Patient Amnestic to Procedure: Yes Nausea / Vomiting: adequately controlled Pain: adequately controlled Airway Patency, RR, SpO2: stable & adequate BP & HR: stable & adequate Hydration State: stable & adequate Anesthetic Complications: no major complications apparent Notes: Patient was extubsted ,placed on BiPap and brought to ICU,report given.
[2022-11-09] MEDS: CLOPIDOGREL BISULFATE 75 MG TAB PO SCH (17:49)
--- NOTE | 2022-11-09 17:55 | Critical Care Consultation ---
Date of Consultation November 09, 2022 Assessment & Plan (1) Back pain: (2) Acute UTI: (3) Fever: Plan Impression: 67-year-old male brought to ICU post thoracic spine evaluation. There was concern about ability to liberate the patient from the ventilator but he appears to be doing well and is on BiPAP currently. Recommendations: 1. Chronic hypercarbic respiratory failure: The patient has a longstanding history of sleep disordered breathing as well as hypercarbic respiratory fa ilure. This may be consistent with obesity hypoventilation syndrome. Would recommend CPAP/BiPAP at night when sleeping and as needed for altered mental status. 2. UTI: Urine growing Morganella as well as E. coli. Resistant to Unasyn Bactrim and ampicillin. Patient currently on Cubicin and Zosyn which should be more than adequate to cover these pathogens. Defer additional antibiotics to the patient's primary service. 3. Diabetes: Continue glycemic control per protocol. 4. Patient is hemodynamically stable at this point time. As the patient's respiratory issues appear to be stable and at his baseline, I think he can likely be transferred out of the ICU to a lower level of care. Will defer ultimate disposition to orthopedic surgery and the patient's primary hospitalist service. Feel free to contact us with additional critical care questions or issues. History of Present Illness Attending Physician: Salas Gan MD History of Present Illness Asked by anesthesia and orthospine to assist in evaluation management of this patient after thoracic spine exploration today. History is obtained from discussion with anesthesia as well as review the electronic medical record. Patient is a 67-year-old male who was admitted to the facility 11/04/2022. He presented with fevers, groin pain and hallucinations. He has a history of paralysis with neurogenic bladder and has a suprapubic catheter in place. He had back surgery performed 10/07. He was seen in consultation by urology, neurology, and orthopedic surgery. Imaging studies showed possible thoracic discitis. He was taken to the OR today for I&D of thoracic spine with possible hardware removal. Examination at the time of surgery showed no evidence of discitis. Some of the pedicle screws were slightly loose but not removed. There was concern about the patient being extubated and initial plans were to bring him to the ICU intubated however the patient was able to be extubated in the OR was placed on BiPAP and brought to the ICU. He has a history of sleep disordered breathing. On arrival to the ICU I assessed the patient. He is currently awake and alert. He is communicating. He is on full face BiPAP. He is hemodynamically stable. Allergies Allergy/AdvReac Type Severity Reaction Status Date / Time erythromycin base Allergy Severe Anaphylaxis Verified 10/07/22 09:38 Fish Containing Products Allergy Severe THROAT Verified 10/07/22 09:38 SWELLS loratadine Allergy Severe BREATHING Verified 10/07/22 09:38 DIFFICULTY shellfish derived Allergy Severe throat Verified 10/07/22 09:38 gets scratchy diphenhydramine Allergy Intermediate HIVES Verified 10/07/22 09:38 Macrolide Antibiotics Allergy Intermediate E-MYCIN=HIVES; Verified 10/07/22 09:38 "MYCINS"--JAUNDICE rofecoxib AdvReac Severe CHEST PAIN Verified 10/07/22 09:38 zolpidem AdvReac Severe NIGHTMARES Verified 10/07/22 09:38 oxycodone AdvReac Intermediate TERRIBLE Verified 10/07/22 09:38 DREAMS,DISORIENTATION Home Medications Medication Instructions Recorded Confirmed Type calcium carbonate 500 mg-vitamin 1 tab PO BID 12/05/18 11/04/22 History D3 5 mcg (200 unit) tablet (Calcium 500 + D) clopidogrel 75 mg tablet (Plavix) 75 mg PO QAM 12/05/18 11/04/22 History coenzyme Q10 100 mg capsule 100 mg PO HS 12/05/18 11/04/22 History (CoQ-10) docusate sodium 100 mg tablet 100 mg PO TID 12/05/18 11/04/22 History fluticasone propionate 50 1 spray intranasal QAM PRN Nasal 12/05/18 11/04/22 History mcg/actuation nasal Congestion spray,suspension (Flonase Allergy Relief) multivitamin 1 tab PO QAM 12/05/18 11/04/22 History nitroglycerin 0.4 mg sublingual 1 tab sublingual UD PRN Chest Pain 12/05/18 11/04/22 History tablet (Nitrostat) duloxetine 60 mg capsule,delayed 60 mg PO HS 12/06/18 11/04/22 History release sennosides 8.6 mg tablet 8.6 mg PO BID 12/06/18 11/04/22 History trazodone 50 mg tablet 25 mg PO HS 12/06/18 11/04/22 History omeprazole 20 mg capsule,delayed 20 mg PO BID 04/15/20 11/04/22 History release metformin 1,000 mg tablet 1,000 mg PO BID 07/02/20 11/04/22 History lidocaine 5 % topical ointment 1 applic topical Q6H FOOT & BACK 07/10/20 11/04/22 History PAIN mirabegron 50 mg tablet,extended 50 mg PO QAM 07/10/20 11/04/22 History release 24 hr (Myrbetriq) bisacodyl 10 mg rectal suppository 10 mg PA QAM PRN Constipation 09/24/20 11/04/22 History (Dulcolax (bisacodyl)) polyethylene glycol 3350 17 17 g PO HS 09/24/20 11/04/22 History gram/dose oral powder (Miralax) tizanidine 4 mg capsule 4 mg PO TID 09/24/20 11/04/22 History aspirin 81 mg tablet,delayed 81 mg PO HS 10/30/20 11/04/22 History release alendronate 70 mg tablet 70 mg PO WK 02/13/22 11/04/22 History bacitracin zinc 500 unit/gram 1 applic topical QAM PRN Skin 02/13/22 11/04/22 History topical ointment Irritation carvedilol 12.5 mg tablet 6.25 mg PO BID 02/13/22 11/04/22 History cholecalciferol (vitamin D3) 25 50 mcg PO QDL 02/13/22 11/04/22 History mcg (1,000 unit) capsule (Vitamin D3) clotrimazole 1 % topical cream 1 applic topical BID PRN SKIN 02/13/22 11/04/22 History IRRITATION ON CHEST cyanocobalamin (vitamin B-12) 500 1,000 mcg PO DAILY 02/13/22 11/04/22 History mcg tablet (Vitamin B-12) furosemide 40 mg tablet 40 mg PO QAM 02/13/22 11/04/22 History lidocaine 5 % topical patch 1 patch transdermal ONAMOFFPM PRN 02/13/22 11/04/22 History Back Pain lidocaine HCl 2 % mucosal jelly 1 applic topical DIRECTED PRN 02/13/22 11/04/22 History BOWEL PROGRAM nitroglycerin 400 mcg/spray 1 spray translingual UD PRN Chest 02/13/22 11/04/22 History translingual Pain nystatin 100,000 unit/gram topical 1 applic topical BID PRN Skin 02/13/22 11/04/22 History powder Irritation ramipril 10 mg capsule 10 mg PO BID 02/13/22 11/04/22 History spironolactone 25 mg tablet 25 mg PO QAM 02/13/22 11/04/22 History baclofen 10 mg tablet 10 mg PO QID PRN MUSCLE SPASMS 02/14/22 11/04/22 History pregabalin 225 mg capsule 225 mg PO BID 02/14/22 11/04/22 History benzonatate 100 mg capsule 100 mg PO TID PRN cough #15 caps 04/22/22 11/04/22 Rx carboxymethylcellulose sodium 0.5 1 drp OPL QID 04/22/22 11/04/22 History % eye drops cetirizine 10 mg tablet (Zyrtec) 10 mg PO QAM 04/22/22 11/04/22 History citric ac 1980.6 mg-glucono 59.4 30 ml irrigation DAILY PRN 04/22/22 11/04/22 History mg-mag carb 980.4 mg/30 mL NEEDED irrig.soln (Renacidin) clobetasol 0.05 % scalp solution 1 applic topical BID PRN EAR 04/22/22 11/04/22 History DERMATITIS dantrolene 25 mg capsule 25 mg PO TID 04/22/22 11/04/22 History desonide 0.05 % topical cream 1 applic topical BID PRN SKIN 04/22/22 11/04/22 History IRRITATION ON FACE magnesium oxide 420 mg tablet 420 mg PO DAILY 04/22/22 11/04/22 History phenylephrine 0.25 %-pramoxine 1 1 applic PA HS PRN Hemorrhoids 04/22/22 11/04/22 History %-glycerin-wh.petrolatum rectal cream (Hemorrhoidal Cream) pitavastatin magnesium 4 mg tablet 4 mg PO HS 04/22/22 11/04/22 History sodium chloride 0.65 % nasal spray 1 spray intranasal Q2H PRN NASAL 04/22/22 11/04/22 History aerosol (Saline Nasal) DRYNESS Minie Ememez Plus 1 dose PA QAM 09/02/22 11/04/22 History hydrocodone 10 mg-acetaminophen 1 tab PO Q4 PRN Pain 11/04/22 11/04/22 History 325 mg tablet semaglutide 1 mg/dose (2 mg/1.5 1 mg subcut WK 11/04/22 11/04/22 History mL) subcutaneous pen injector (Ozempic) Patient History Medical History Aortic aneurysm UNDER SURVEILLANCE BY VASCULAR (TESSIE) Aortic insufficiency mild on 05/2022 echo Aortic stenosis mild to moderate, 05/2022 echo Atrial fibrillation CAD (coronary artery disease) s/p 6 stents, most recent in 2011 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 Depression Diabetes mellitus, type 2 NIDDM 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 moderately enlarged 4.4 cm GERD (gastroesophageal reflux disease) controlled, stable per pt History of COVID-19 10/18/20>hospitalized for SBO, COVID symptoms resolved History of intestinal obstruction NO SURGERY REQUIRED History of pressure ulcer NOTHING CURRENT NOW>"NOTHING OPENED, REDNESS ONLY" Hyperlipidemia Hypertension controlled, stable per pt Morbid obesity Myocardial Infarction X4 - LAST WAS 2011 Neurogenic bladder indwelling supra-pubic catheter Neurogenic bowel see med list for bowel regimen Pacemaker MEDTRONIC; 2/2 SYMPTOMATIC BRADYCARDIA- LAST PACER CHECK/STACY 08/13/22 Paralysis PARLYSIS/PARATHESIA OF B/L LOWER EXTREMITIES FOLLOWING LOWER THORACIC INTERBODY FUSION 11/2017 Renal lesion new 1.6 cm enhancing cortical lesion suggested in the interpolar left kidney. This is highly suspicious for renal cell carcinoma, and follow-up with urology is recommended-they report monitoring CT in [address] Bran Nova with [facility] Rotator cuff tear rt Sleep apnea CPAP RECALLED>USING O2 AT 2L HS 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 Suprapubic catheter Surgical History Fusion of spine T9-T11 Removal of Hardware, T5-T11 Decompression and Fusion: 12/13/18: Grade view 1, MAC#3, ETT 8.5 at [facility] "fused from T6-S1" T9-T12 Grade 1 view, MAC 3, ETT 8 11/22/17: "...no voluntary movement in his lower extremities...no sensation noted below approx inguinal ligament bilat...to be monitored on med-surgical floor...Dr. Almaraz will start...steroid protocol..." H/O sinus surgery History of arthroscopic surgery of shoulder X2 (LEFT) 09/20/15 LMA 5 + PNB. Post-op note: "...in the PACU he was initially hypertensive with BP 170s/110s...given labetalol and hydralazine...now 140s/80s...HR remained in the 60s to 70s...SpO2 has been in the high 90s..." History of back surgery X4 History of cardiac cath X15; TOTAL OF 6 STENTS (STENT PLACED LAST 2011) History of cardiac pacemaker History of cholecystectomy History of cystoscopy History of gastric bypass GASTRIC SLEEVE PROCEDURE History of tonsillectomy and adenoidectomy History of tooth extraction History of total knee replacement B/L S/P cervical spinal fusion C5-6 limited rom S/P UPPP (uvulopalatopharyngoplasty) Status post insertion of intrathecal baclofen pump May 2020-Prometra pump at [facility] Family History Other No family history of adverse response to anesthesia Social History Smoking Status: Former smoker Tobacco Type: Cigarettes Second Hand Exposure: Yes ( A CHILD); Do You Dip or Chew Tobacco: No; Hx Alcohol Use: No Hx Substance Use: No Preferred Language: Tanzanian Communication Ability: Effective Visual Impairment: No Limitations Hearing Ability: Normal Online Merchandising Coordinator Required: No Beliefs That Will Affect Care: Faith Faith Beliefs: CONFUCIANIST marital status: Current Living Situation: Spouse Current Living Situation 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 Feels Safe at Home: Yes Safety Concerns: Feels Safe At This Time Assistive Devices: Mechanical Lift, Oxygen - at Night and Wheelchair Review of Systems Review of Systems: Limited due to the patient being on full face BiPAP Physical Exam Constitutional: WD/WN, vitals as above Respiratory: normal respiratory effort, lungs clear to auscultation Cardiovascular: RRR, no murmur, no edema Gastrointestinal (Abdomen): normal bowel sounds, soft, nontender, no hepatosplenomegaly Skin: no rashes, warm and dry Neurologic: witnessed episodes of shaking in both arms with the ability to speak and follow commands, no seizure activity paraplegic Psychiatric: A+Ox3, euthymic affect Results & Data Results & Data ([facility]) Vital Signs (Past 12 Hours) Vital Signs Temp Pulse Pulse Pulse Resp BP BP 11/09/22 17:30 71 19 11/09/22 17:19 36.6 C 71 71 16 132/42 L 11/09/22 16:45 16 11/09/22 16:57 83 22 11/09/22 13:52 36.8 C 71 14 160/80 H 11/09/22 12:31 36.5 C 69 18 163/90 H 11/09/22 11:31 81 19 11/09/22 09:15 11/09/22 05:55 70 11/09/22 06:43 36.5 C 81 18 164/78 H BP Pulse Ox O2 Del Method FiO2 11/09/22 17:30 100 Nasal Cannula 2 11/09/22 17:19 128/44 L 100 BiPAP 11/09/22 16:45 BiPAP 11/09/22 16:57 100 40 11/09/22 13:52 97 BiPAP 11/09/22 12:31 95 BiPAP 11/09/22 11:31 98 25 11/09/22 09:15 BiPAP 11/09/22 05:55 11/09/22 06:43 96 BiPAP Critical Care Results & Data Vital Signs (Past 12 Hours) Vital Signs Temp Pulse Pulse Pulse Resp BP BP 11/09/22 17:30 71 19 11/09/22 17:19 36.6 C 71 71 16 132/42 L 11/09/22 16:45 16 11/09/22 16:57 83 22 11/09/22 13:52 36.8 C 71 14 160/80 H 11/09/22 12:31 36.5 C 69 18 163/90 H 11/09/22 11:31 81 19 11/09/22 09:15 11/09/22 05:55 70 11/09/22 06:43 36.5 C 81 18 164/78 H BP Pulse Ox O2 Del Method FiO2 11/09/22 17:30 100 Nasal Cannula 2 11/09/22 17:19 128/44 L 100 BiPAP 11/09/22 16:45 BiPAP 11/09/22 16:57 100 40 11/09/22 13:52 97 BiPAP 11/09/22 12:31 95 BiPAP 11/09/22 11:31 98 25 11/09/22 09:15 BiPAP 11/09/22 05:55 11/09/22 06:43 96 BiPAP Lab & Micro Results (Past 24 Hours) No Data to Display No Data to Display Arterial Blood pH 7.40 (7.35-7.45) 11/09/22 14:44 Arterial Blood Partial Pressure CO2 50 mmHg (35-46) H 11/09/22 14:44 Arterial Blood Partial Pressure O2 91 mmHg (80-95) 11/09/22 14: 44 Arterial Blood HCO3 31 mmol/L (19-24) H 11/09/22 14:44 Arterial Blood Base Excess 5.0 mEq/L (-9-1.8) H 11/09/22 14:44 Arterial Blood Oxygen Saturation 98.9 % (90-95) H 11/09/22 14:4 4 Blood Gas Oxygen Given 2L 11/09/22 14:44 Shabbir Test Pos (Pos) 11/09/22 14:44 Diagnostic Findings (Past 24 Hours) Thoracic Spine X-Ray 11/09/22 11:00 INTRAOPERATIVE RADIOGRAPHS CLINICAL HISTORY: Hardware removal. Fluoroscopy time: 8 seconds. FINDINGS: 6 spot fluoroscopic views of the thoracic spine are presented. There is extensive fusion hardware seen throughout the thoracic spine. Interpedicular screws are present at multiple levels with spinal rods in place. The precise levels cannot be delineated on these spot images. The image of the hardware appears intact. IMPRESSION: Intraoperative images of the thoracic spine as above. Electronically signed by: Viraj Palacios M.D. 11/09/2022 4:31 PM I & O Totals 24 Hours 11/08/22 11/09/22 11/10/22 06:59 06:59 06:59 Intake Total 120 / 120 2652.5 / 2652.5 1240 / 1240 Output Total 1750 / 1750 1050 / 1050 Balance -1630 / -1630 1602.5 / 1602.5 1240 / 1240 Cumulative 11/04/22 16:08 thru 11/09/22 17:50 Intake Total 7102.5 Output Total 8325 Balance -1222.5 RT Ventilator Mngmt (Last Documented) Ventilator Ordered Settings Respiratory Rate 19 11/09/22 17:30 Fraction of Inspired Oxygen 2 11/09/22 17:30 Ventilator - PT Measurements Respiratory Rate 19 Coding Level of Care Code INP/OBS CONSULT LVL 4, 60 MIN Diagnoses Back pain M54.6 Back pain laterality: bilateral Back pain location: thoracic back pain Chronicity: acute Acute UTI N39.0 Fever R50.9 Fever type: unspecified (1) Back pain Back pain laterality: bilateral Back pain location: thoracic back pain Chronicity: acute Qualified Code(s): M54.6 - Pain in thoracic spine (2) Fever Fever type: unspecified Qualified Code(s): R50.9 - Fever, unspecified
[2022-11-09] MEDS: CYANOCOBALAMIN (B-12) 500 MCG TABLET PO SCH (18:45)
[2022-11-09] MEDS: RENACIDIN IR SCH (18:46)
[2022-11-09] MEDS: ASPIRIN 81 MG ECTAB PO SCH (20:18)
[2022-11-09] MEDS: DULoxetine HCL 60 MG CAP PO SCH (20:20)
[2022-11-09] MEDS: POLYETHYLENE (MIRALAX) 17 GM PACK PO SCH (20:22)
[2022-11-09] MEDS: traZODone HCL 50 MG TAB PO SCH (20:25)
[2022-11-09] MEDS: DAPTOmycin 525 MG in SYRINGE 0 ML IV SCH (20:54)
[2022-11-10] MEDS: LIDOCAINE 5% OINT 30 GM TUBE TOP SCH ×5 (00:55→23:01)
[2022-11-10] MEDS: PIPERACILLIN/TAZOBACTAM 4.5 GM in DEXTROSE 5% 100 ML IV SCH ×2 (03:45→11:33)
[2022-11-10 05:09] LABS: Basophils # (auto) 0.03 K/uL (0-0.2); Basophils % (auto) 0.3 %; Eosinophils # (auto) 0.13 K/uL (0-0.50); Eosinophils % (auto) 1.3 %; Hematocrit (blood only) 29.6 % (40.1-51.0); Hemoglobin 9.6 g/dl (14.0-18.0); Immature Granulocytes # (auto) 0.09 K/uL (0.00-0.02); Immature Granulocytes % (auto) 0.9 %; Lymphocytes # (auto) 1.68 K/uL (1.2-3.4); Lymphocytes % (auto) 16.3 %; Mean Corpuscular Hemoglobin 29.1 pg (25.0-34.0); Mean Corpuscular Hgb Conc 32.4 g/dL (32.0-36.0); Mean Corpuscular Volume 89.7 fL (80.0-100.0); Mean Platelet Volume 10.6 fL (9.4-12.4); Monocytes # (auto) 0.87 K/uL (0.24-0.82); Monocytes % (auto) 8.5 %; Neutrophils # (auto) 7.49 K/uL (1.4-6.5); Neutrophils % (auto) 72.7 %; Platelet Count 262 K/uL (130-400); RDW Coefficient of Variation 15.4 % (11.5-14.5); RDW Standard Deviation 49.2 fL (36.4-46.3); White Blood Count 10.29 K/ul (4.8-10.8)
[2022-11-10 05:39] LABS: BUN Creatinine Ratio 22.6 (10-20); Calcium 8.4 mg/dl (8.5-10.1); Creatinine Clr Calc Pharmacy 144.7 ml/min; Est GFR (Non-African American) 102.7 ml/min; Potassium 3.5 mmol/L (3.5-5.1)
[2022-11-10] MEDS: INSULIN ASPART PER UNIT SC SCH ×4 (07:30→21:45)
--- NOTE | 2022-11-10 08:12 | Critical Care Progress Note ---
Date of Service November 10, 2022 Assessment & Plan (1) Back pain: (2) Acute UTI: (3) Fever: Plan Impression: 67-year-old male brought to ICU post thoracic spine exploration. He has sleep disordered breathing and was extubated to BiPAP but is doing well clinically now. Recommendations: 1. Chronic hypercarbic respiratory failure: Recommend the patient continue to use BiPAP at night when sleeping or as needed during the day. His home machine is not available to use as the patient states its been recalled and has not yet been replaced. His sleep study has been archived and is not available to review. Would be reasonable in the outpatient setting to repeat polysomnography to ensure appropriate settings and see if we can get the patient an updated machine. 2. UTI: Urine growing Morganella as well as E. coli. Resistant to Unasyn Bactrim and ampicillin. Patient currently on Cubicin and Zosyn which should be more than adequate to cover these pathogens. Defer additional antibiotics to the patient's primary service. 3. Diabetes: Continue glycemic control per protocol. 4. Patient is hemodynamically stable at this point time. Okay to transfer back to the floor under the care of hospitalist. Critical care will sign off. Feel free to contact us with questions or concerns Admission and Anticipated Discharge Date Admission Date: November 04, 2022 Subjective Patient seen and examined. EMR reviewed. Discussed with critical care nurse patient and at bedside. Patient is doing well clinically. His biggest complaint is wanting to eat. He is having some mild tenderness in his back but this appears appropriate for the procedure that he underwent yesterday. He did not use CPAP last night. He states he has a CPAP machine at home and is not been using it due to the recall. He states he has frequent sinus infections associated with machine and is reluctant to use CPAP until he gets replacement machine. Review of Systems Review of Systems: Negative except as noted in HPI Physical Exam Constitutional: WD/WN, vitals as above Respiratory: normal respiratory effort, lungs clear to auscultation Cardiovascular: RRR, no murmur, no edema Gastrointestinal (Abdomen): normal bowel sounds, soft, nontender, no hepatosplenomegaly Skin: no rashes, warm and dry Psychiatric: A+Ox3, euthymic affect Results & Data Results & Data ([facility]) Vital Signs (Past 12 Hours) Vital Signs Temp Pulse Resp BP Pulse Ox Pulse Ox O2 Del Method 01/10/23 07:30 88 11/10/22 07:34 86 17 146/75 H 92 Room Air 11/10/22 07:34 36.6 C 11/10/22 07:00 82 17 91 11/10/22 07:00 137/73 11/10/22 06:01 112/74 11/10/22 06:01 88 15 93 11/10/22 06:00 86 16 91 11/10/22 05:00 80 7 L 91 11/10/22 05:00 133/64 11/10/22 04:00 74 8 L 94 11/10/22 04:00 122/72 11/10/22 03:01 89 9 L 94 11/10/22 03:01 130/74 11/10/22 03:00 73 5 L 95 11/10/22 02:01 70 15 99 11/10/22 02:01 82/52 L 11/10/22 02:00 69 14 97 11/10/22 01:05 70 15 97 11/10/22 01:05 84/58 L 11/10/22 01:00 75 16 98 11/10/22 00:00 82 13 94 11/10/22 04:00 80 133/64 11/10/22 03:00 37.0 C 11/10/22 00:00 96 11/10/22 00:00 73 51/14 L 11/10/22 00:00 72 11/09/22 23:41 Nasal Cannula 11/09/22 23:00 73 10 L 100 11/09/22 22:00 77 27 H 99 11/09/22 21:00 98 11/09/22 22:47 36.8 C O2 Del Method O2 Flow Rate O2 Flow Rate 11/10/22 07:30 11/10/22 07:34 11/10/22 07:34 11/10/22 07:00 11/10/22 07:00 11/10/22 06:01 11/10/22 06:01 11/10/22 06:00 11/10/22 05:00 11/10/22 05:00 11/10/22 04:00 11/10/22 04:00 11/10/22 03:01 11/10/22 03:01 11/10/22 03:00 11/10/22 02:01 11/10/22 02:01 11/10/22 02:00 11/10/22 01:05 11/10/22 01:05 11/10/22 01:00 11/10/22 00:00 11/10/22 04:00 11/10/22 03:00 11/10/22 00:00 Nasal Cannula 2 11/10/22 00:00 11/10/22 00:00 11/09/22 23:41 2 11/09/22 23:00 11/09/22 22:00 11/09/22 21:00 11/09/22 22:47 Critical Care Results & Data Vital Signs (Past 12 Hours) Vital Signs Temp Pulse Resp BP Pulse Ox Pulse Ox O2 Del Method 11/10/22 07:30 88 11/10/22 07:34 86 17 146/75 H 92 Room Air 11/10/22 07:34 36.6 C 11/10/22 07:00 82 17 91 11/10/22 07:00 137/73 11/10/22 06:01 112/74 11/10/22 06:01 88 15 93 11/10/22 06:00 86 16 91 11/10/22 05:00 80 7 L 91 11/10/22 05:00 133/64 11/10/22 04:00 74 8 L 94 11/10/22 04:00 122/72 11/10/22 03:01 89 9 L 94 11/10/22 03:01 130/74 11/10/22 03:00 73 5 L 95 11/10/22 02:01 70 15 99 11/10/22 02:01 82/52 L 11/10/22 02:00 69 14 97 11/10/22 01:05 70 15 97 11/10/22 01:05 84/58 L 11/10/22 01:00 75 16 98 11/10/22 00:00 82 13 94 11/10/22 04:00 80 133/64 11/10/22 03:00 37.0 C 11/10/22 00:00 96 11/10/22 00:00 73 51/14 L 11/10/22 00:00 72 11/09/22 23:41 Nasal Cannula 11/09/22 23:00 73 10 L 100 11/09/22 22:00 77 27 H 99 11/09/22 21:00 98 11/09/22 22:47 36.8 C O2 Del Method O2 Flow Rate O2 Flow Rate 11/10/22 07:30 11/10/22 07:34 11/10/22 07:34 11/10/22 07:00 11/10/22 07:00 11/10/22 06:01 11/10/22 06:01 11/10/22 06:00 11/10/22 05:00 11/10/22 05:00 11/10/22 04:00 11/10/22 04:00 11/10/22 03:01 11/10/22 03:01 11/10/22 03:00 11/10/22 02:01 11/10/22 02:01 11/10/22 02:00 11/10/22 01:05 11/10/22 01:05 11/10/22 01:00 11/10/22 00:00 11/10/22 04:00 11/10/22 03:00 11/10/22 00:00 Nasal Cannula 2 11/10/22 00:00 11/10/22 00:00 11/09/22 23:41 2 11/09/22 23:00 11/09/22 22:00 11/09/22 21:00 11/09/22 22:47 Lab & Micro Results (Past 24 Hours) RBC 3.30 M/uL (4.63-6.08) L 11/10/22 WBC 10.29 K/ul (4.8-10.8) 11/10/22 Hgb 9.6 g/dl (14.0-18.0) L 11/10/22 Hct 29.6 % (40.1-51.0) L 11/10/22 MCV 89.7 fL (80.0-100.0) 11/10/22 MCH 29.1 pg (25.0-34.0) 11/10/22 MCHC 32.4 g/dL (32.0-36.0) 11/10/22 RDW Standard Deviation 49.2 fL (36.4-46.3) H 11/10/22 RDW Coefficient of Variation 15.4 % (11.5-14.5) H 11/10/22 Plt Count 262 K/uL (130-400) 11/10/22 MPV 10.6 fL (9.4-12.4) 11/10/22 Neutrophils (%) (Auto) 72.7 % 11/10/22 Lymphocytes (%) (Auto) 16.3 % 11/10/22 Monocytes # (Auto) 0.87 K/uL (0.24-0.82) H 11/10/22 Eosinophils # (Auto) 0.13 K/uL (0-0.50) 11/10/22 Immature Granulocyte % (Auto) 0.9 % 11/10/22 Neutrophils # (Auto) 7.49 K/uL (1.4-6.5) H 11/10/22 Lymphocytes # (Auto) 1.68 K/uL (1.2-3.4) 11/10/22 Monocytes # (Auto) 0.87 K/uL (0.24-0.82) H 11/10/22 Eosinophils # (Auto) 0.13 K/uL (0-0.50) 11/10/22 Basophils # (Auto) 0.03 K/uL (0-0.2) 11/10/22 Immature Granulocyte # (Auto) 0.09 K/uL (0.00-0.02) H 11/10 Na 142 mmol/L (136-145) 11/10/22 K 3.5 mmol/L (3.5-5.1) 11/10/22 Cl 107 mmol/L (98-107) 11/10/22 CO2 28 mmol/L (21-32) 11/10/22 Anion Gap 7 (3-11) 11/10/22 BUN 14 mg/dl (6-23) 11/10/22 Creatinine 0.62 mg/dl (0.6-1.4) 11/10/22 Estimated GFR ( Amer) 119.0 ml/min 11/10/22 Estimated GFR (Non-Af Amer) 102.7 ml/min 11/10/22 BUN/Creatinine Ratio 22.6 (10-20) H 11/10/22 Glu 114 mg/dl (70-99(Fasting)) H 11/10/22 Ca 8.4 mg/dl (8.5-10.1) L 11/10/22 Calcium Level 8.4 mg/dl (8.5-10.1) L 11/10/22 04:51 Arterial Blood pH 7.40 (7.35-7.45) 11/09/22 14:44 Arterial Blood Partial Pressure CO2 50 mmHg (35-46) H 11/09/22 14:44 Arterial Blood Partial Pressure O2 91 mmHg (80-95) 11/09/22 14: 44 Arterial Blood HCO3 31 mmol/L (19-24) H 11/09/22 14:44 Arterial Blood Base Excess 5.0 mEq/L (-9-1.8) H 11/09/22 14:44 Arterial Blood Oxygen Saturation 98.9 % (90-95) H 11/09/22 14:4 4 Blood Gas Oxygen Given 2L 11/09/22 14:44 Shabbir Test Pos (Pos) 11/09/22 14:44 Microbiology 11/04/22 23:23 Aerobic Blood Culture - Final Blood No growth in Aerobic bottle after 5 days. Anaerobic Blood Culture - Final No growth in Anaerobic bottle after 5 days. 11/09/22 15:45 Gram Stain - Final Back Diagnostic Findings (Past 24 Hours) Thoracic Spine X-Ray 11/09/22 11:00 INTRAOPERATIVE RADIOGRAPHS CLINICAL HISTORY: Hardware removal. Fluoroscopy time: 8 seconds. FINDINGS: 6 spot fluoroscopic views of the thoracic spine are presented. There is extensive fusion hardware seen throughout the thoracic spine. Interpedicular screws are present at multiple levels with spinal rods in place. The precise levels cannot be delineated on these spot images. The image of the hardware appears intact. IMPRESSION: Intraoperative images of the thoracic spine as above. Electronically signed by: Viraj Palacios M.D. 11/09/2022 4:31 PM I & O Totals 24 Hours 11/09/22 11/10/22 11/11/22 06:59 06:59 06:59 Intake Total 2652.5 / 2652.5 3302.667 / 3302.667 120 / 120 Output Total 1050 / 1050 725 / 725 Balance 1602.5 / 1602.5 2577.667 / 2577.667 120 / 120 Cumulative 11/04/22 16:08 thru 11/10/22 07:37 Intake Total 9285.167 Output Total 9050 Balance 235.167 RT Ventilator Mngmt (Last Documented) Ventilator Ordered Settings Respiratory Rate 17 11/10/22 07:34 Fraction of Inspired Oxygen 2 11/09/22 17:30 Ventilator - PT Measurements Respiratory Rate 17 Coding Level of Care Code 26025 SUB INP/OBS CARE 2/35MIN Diagnoses Back pain M54.6 Back pain laterality: bilateral Back pain location: thoracic back pain Chronicity: acute Acute UTI N39.0 Fever R50.9 Fever type: unspecified (1) Back pain Back pain laterality: bilateral Back pain location: thoracic back pain Chronicity: acute Qualified Code(s): M54.6 - Pain in thoracic spine (2) Fever Fever type: unspecified Qualified Code(s): R50.9 - Fever, unspecified
[2022-11-10] MEDS: BACLOFEN 10 MG TAB PO SCH ×4 (08:27→21:44)
[2022-11-10] MEDS: carvediloL 6.25 MG TAB PO SCH ×2 (08:27→21:32)
[2022-11-10] MEDS: CALCIUM 600MG + VIT D 400 IU TAB PO SCH ×2 (08:27→21:32)
[2022-11-10] MEDS: ENALAPRIL MALEATE 10 MG TAB PO SCH ×2 (08:28→21:33)
[2022-11-10] MEDS: DANTROLENE SODIUM 25 MG CAP PO SCH (08:28)
[2022-11-10] MEDS: CETIRIZINE HCL 10 MG TABLET PO SCH (08:28)
[2022-11-10] MEDS: FUROSEMIDE 40 MG TAB PO SCH (08:29)
[2022-11-10] MEDS: LIDOCAINE 5% 1 PATCH TD SCH (08:29)
[2022-11-10] MEDS: MAGNESIUM OXIDE 400 MG TAB PO SCH (08:30)
[2022-11-10] MEDS: MIRABEGRON ER 25 MG TAB PO SCH (08:31)
[2022-11-10] MEDS: PANTOprazole 40 MG TAB PO SCH ×2 (08:31→21:34)
[2022-11-10] MEDS: SENNA 8.6 MG TAB PO SCH ×2 (08:31→21:35)
[2022-11-10] MEDS: SPIRONOLACTONE 25 MG TAB PO SCH (08:32)
[2022-11-10] MEDS: tiZANidine HCL 4 MG TABLET PO SCH ×3 (08:32→21:35)
[2022-11-10] MEDS: PREGABALIN 75 MG CAP PO SCH ×2 (08:34→21:34)
[2022-11-10] MEDS: DOCUSATE SODIUM 100 MG CAP PO SCH ×3 (08:34→21:44)
[2022-11-10] MEDS ORDERED: POTASSIUM CHLORIDE 20 MEQ/15 ML UDC PO STA (08:36)
[2022-11-10] MEDS: ARTIFICIAL TEARS OP SCH ×4 (08:36→21:31)
--- NOTE | 2022-11-10 08:42 | Orthopedic Progress Note ---
Date of Service November 10, 2022 Assessment & Plan (1) Back pain: Plan: I did explain the patient this morning I found no evidence of infection. Does at this time the cultures are negative and a Gram stain benign. It does not appear that the source of his infection is related to his thoracic spine. Admission and Anticipated Discharge Date Admission Date: November 04, 2022 Subjective Patient's pain is controlled. He has no complaints this morning. Physical Exam Physical Exam: On exam this morning he is alert and oriented to place and time. Results & Data ([facility]) Vital Signs (Past 12 Hours) Vital Signs Temp Pulse Resp BP Pulse Ox Pulse Ox O2 Del Method 11/10/22 07:30 88 11/10/22 07:34 86 17 146/75 H 92 Room Air 11/10/22 07:34 36.6 C 11/10/22 07:00 82 17 91 11/10/22 07:00 137/73 11/10/22 06:01 112/74 11/10/22 06:01 88 15 93 11/10/22 06:00 86 16 91 11/10/22 05:00 80 7 L 91 11/10/22 05:00 133/64 11/10/22 04:00 74 8 L 94 11/10/22 04:00 122/72 11/10/22 03:01 89 9 L 94 11/10/22 03:01 130/74 11/10/22 03:00 73 5 L 95 11/10/22 02:01 70 15 99 11/10/22 02:01 82/52 L 11/10/22 02:00 69 14 97 11/10/22 01:05 70 15 97 11/10/22 01:05 84/58 L 11/10/22 01:00 75 16 98 11/10/22 00:00 82 13 94 11/10/22 04:00 80 133/64 11/10/22 03:00 37.0 C 11/10/22 00:00 96 11/10/22 00:00 73 51/14 L 11/10/22 00:00 72 11/09/22 23:41 Nasal Cannula 11/09/22 23:00 73 10 L 100 11/09/22 22:00 77 27 H 99 11/09/22 21:00 98 11/09/22 22:47 36.8 C O2 Del Method O2 Flow Rate O2 Flow Rate 11/10/22 07:30 11/10/22 07:34 11/10/22 07:34 11/10/22 07:00 11/10/22 07:00 11/10/22 06:01 11/10/22 06:01 11/10/22 06:00 11/10/22 05:00 11/10/22 05:00 11/10/22 04:00 11/10/22 04:00 11/10/22 03:01 11/10/22 03:01 11/10/22 03:00 11/10/22 02:01 11/10/22 02:01 11/10/22 02:00 11/10/22 01:05 11/10/22 01:05 11/10/22 01:00 11/10/22 00:00 11/10/22 04:00 11/10/22 03:00 11/10/22 00:00 Nasal Cannula 2 11/10/22 00:00 11/10/22 00:00 11/09/22 23:41 2 11/09/22 23:00 11/09/22 22:00 11/09/22 21:00 11/09/22 22:47 (1) Back pain Back pain laterality: bilateral Back pain location: thoracic back pain Chronicity: acute Qualified Code(s): M54.6 - Pain in thoracic spine
[2022-11-10] MEDS: ENEMEEZ PR SCH (10:13)
[2022-11-10] MEDS: SODIUM CHLORIDE 0.9% 1000ML 1,000 ML IV SCH ×2 (10:13→23:00)
[2022-11-10] MEDS: CYANOCOBALAMIN (B-12) 500 MCG TABLET PO SCH (11:32)
[2022-11-10] MEDS: CHOLECALCIFEROL 1,000 UNITS 25 MCG TAB PO SCH (11:32)
[2022-11-10] MEDS: HYDROcodone/ACETAMINOPHEN 10/325 TAB PO PRN ×3 (11:33→21:34)
--- NOTE | 2022-11-10 11:55 | Hospitalist Progress Note ---
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 Supportive care. He has a suprapubic catheter in place. Neurology consult and recommendations appreciated. Pain Management also consulted. Supportive care (2) Discitis of thoracic region: Plan: Ruled out. Gram stain is negative. Antibiotics have been discontinued. Discitis ruled out during intraoperative evaluation on November 09. (3) UTI (urinary tract infection): Plan: Initially started on ceftriaxone after blood and urine cultures collected. E. coli and Morganella morganii isolated. Treated with daptomycin and Zosyn. Antibiotics have now been discontinued (4) Type 2 diabetes mellitus: Plan: Home meds include metformin, Ozempic. Hold while inpatient. Weight based SSI, Accuchecks ACHS. (5) CAD (coronary artery disease): Plan: - History of multiple ZOFIA placement including PCI of the LAD. Episode of unstable angina 2002. Also s/p PCI to RCA, and catheterization August 2012 with PCI to LAD. Negative dobutamine stress echo/EKG in September. Continue Plavix + ASA. Continue amlodipine, HCTZ, metoprolol, spironolactone. Ramipril switched to enalapril per hospital formulary. (6) A-fib: Plan: Atrial paced, not on anticoagulation as outpatient. ChadsVasc score of 4. Continue metoprolol. (7) Hypertension: Plan: Treated with carvedilol, spironolactone, lisinopril. Switched to ramipril per hospital formulary. (8) Aortic insufficiency: Plan: Noted, stable. (9) Aortic aneurysm: Plan: Noted, stable. Follows with Vascular Surgery. (10) Neurogenic bladder: Plan: Has a chronic suprapubic catheter. Local care. (11) GERD (gastroesophageal reflux disease): Plan: Continue PPI therapy. Omeprazole switched to pantoprazole per hospital formulary. (12) DENICE (obstructive sleep apnea): Plan: Patient refuses CPAP at night, prefers 2LNC with sleep. Mild hypercapnea noted on ABG. (13) Depression: Plan: Continue duloxetine and trazodone at night. Plan DNR/DNI in non-surgical circumstances Disposition: Transfer out of intensive care unit today, November 10. Hopefully home soon Admission and Anticipated Discharge Date Admission Date: November 04, 2022 Subjective Alert and oriented. He has been extubated. No acute problems. Antibiotics have been discontinued. T4 pedicle screws were removed intraoperatively yesterday. Postoperative day #1. Gram stain from wound sample is negative. Hemoglobin is down to 9.6 consistent with acute blood loss anemia. Serial labs ordered. We will transfer out of the ICU today. Review of Systems Review of Systems: Constitutional-no fever or chills ENT-no blurred vision, no double vision, no epistaxis, no sore throat Respiratory-no cough, no wheezing, no shortness of breath Cardiac-no palpitations, no chest pain, no syncope GI-no nausea, vomiting, diarrhea, melena, hematochezia -no urinary retention, no urinary incontinence, no dysuria, no hematuria Musculoskeletal-no joint pain, no muscle tenderness Skin-no bruising, no rashes, no pruritus Neuro-no isolated weakness, no paresthesia, no weakness Psych-no depression, no anxiety Physical Exam Physical Exam: General-alert and oriented. No acute problems obese. HEENT-head atraumatic and normocephalic Neck- trachea midline Chest-clear anteriorly. No rales wheezing or rhonchi Cardiac-regular rate and rhythm, normal S1 and S2 Abdomen-normal bowel sounds, obese Extremities-no cyanosis, clubbing. Bilateral chronic venous stasis changes Neuro-lower extremity paraplegia from old spinal cord injury Psych-unremarkable Results & Data Results & Data ([facility]) Vital Signs (Past 12 Hours) Vital Signs Temp Pulse Resp BP Pulse Ox Pulse Ox O2 Del Method 11/10/22 10:01 84 24 122/75 94 Room Air 11/10/22 09:00 82 15 152/87 H 91 Room Air 11/10/22 08:01 82 18 124/77 92 Room Air 11/10/22 07:30 Room Air 11/10/22 07:30 88 11/10/22 07:34 86 17 146/75 H 92 Room Air 11/10/22 07:34 36.6 C 11/10/22 07:00 82 17 91 11/10/22 07:00 137/73 11/10/22 06:01 112/74 11/10/22 06:01 88 15 93 11/10/22 06:00 86 16 91 11/10/22 05:00 80 7 L 91 11/10/22 05:00 133/64 11/10/22 04:00 74 8 L 94 11/10/22 04:00 122/72 11/10/22 03:01 89 9 L 94 11/10/22 03:01 130/74 11/10/22 03:00 73 5 L 95 11/10/22 02:01 70 15 99 11/10/22 02:01 82/52 L 11/10/22 02:00 69 14 97 11/10/22 01:05 70 15 97 11/10/22 01:05 84/58 L 11/10/22 01:00 75 16 98 11/10/22 00:00 82 13 94 11/10/22 04:00 80 133/64 11/10/22 03:00 37.0 C 11/10/22 00:00 96 11/10/22 00:00 73 51/14 L 11/10/22 00:00 72 O2 Del Method O2 Flow Rate 11/10/22 10:01 11/10/22 09:00 11/10/22 08:01 11/10/22 07:30 11/10/22 07:30 11/10/22 07:34 11/10/22 07:34 11/10/22 07:00 11/10/22 07:00 11/10/22 06:01 11/10/22 06:01 11/10/22 06:00 11/10/22 05:00 11/10/22 05:00 11/10/22 04:00 11/10/22 04:00 11/10/22 03:01 11/10/22 03:01 11/10/22 03:00 11/10/22 02:01 11/10/22 02:01 11/10/22 02:00 11/10/22 01:05 11/10/22 01:05 11/10/22 01:00 11/10/22 00:00 11/10/22 04:00 11/10/22 03:00 11/10/22 00:00 Nasal Cannula 2 11/10/22 00:00 11/10/22 00:00 Laboratory Results 11/10/22 04:51 11/10/22 04:51 PG Care Time/CCT Total # of Minutes Spent Total Time Spent with Patient: Total time spent is greater than 50% in coordination of care (as documented) at patient's floor/unit and/or counseling patient: Coding Level of Care Code 66503 SUB INP/OBS CARE MIN Diagnoses Paralysis G83.9 Discitis of thoracic region M46.44 UTI (urinary tract infection) T83.511D; N39.0 Urinary tract infection type: catheter-associated UTI Indwelling urinary catheter type: unspecified Encounter type: subsequent encounter Type 2 diabetes mellitus E11.9 CAD (coronary artery disease) I25.10 A-fib I48.0 Atrial fibrillation type: paroxysmal Hypertension I10 Hypertension type: essential hypertension Aortic insufficiency I35.1 Aortic aneurysm I71.9 Neurogenic bladder N31.9 GERD (gastroesophageal reflux disease) K21.9 DENICE (obstructive sleep apnea) G47.33 Depression F32.9 (1) UTI (urinary tract infection) Urinary tract infection type: catheter-associated UTI Indwelling urinary catheter type: unspecified Encounter type: subsequent encounter Qualified Code(s): T83.511D - Infection and inflammatory reaction due to indwelling urethral catheter, subsequent encounter; N39.0 - Urinary tract infection, site not specified (2) A-fib Atrial fibrillation type: paroxysmal Qualified Code(s): I48.0 - Paroxysmal atrial fibrillation (3) Hypertension Hypertension type: essential hypertension Qualified Code(s): I10 - Essential (primary) hypertension
[2022-11-10] MEDS: RENACIDIN IR SCH (15:16)
[2022-11-10] MEDS: ACETAMINOPHEN 325 MG TAB PO PRN (19:40)
[2022-11-10] MEDS: ASPIRIN 81 MG ECTAB PO SCH (21:31)
[2022-11-10] MEDS: DULoxetine HCL 60 MG CAP PO SCH (21:33)
[2022-11-10] MEDS: POLYETHYLENE (MIRALAX) 17 GM PACK PO SCH (21:34)
[2022-11-10] MEDS: traZODone HCL 50 MG TAB PO SCH (21:44)
[2022-11-11] MEDS: HYDROcodone/ACETAMINOPHEN 10/325 TAB PO PRN ×3 (02:51→12:10)
[2022-11-11] MEDS: LIDOCAINE 5% OINT 30 GM TUBE TOP SCH ×3 (04:46→17:39)
[2022-11-11] MEDS: ONDANSETRON INJ 2 MG/ML 2 ML VIAL IV PRN (04:50)
[2022-11-11 07:20] LABS: Basophils # (auto) 0.03 K/uL (0-0.2); Basophils % (auto) 0.4 %; Eosinophils # (auto) 0.22 K/uL (0-0.50); Hematocrit (blood only) 28.7 % (40.1-51.0); Hemoglobin 9.1 g/dl (14.0-18.0); Immature Granulocytes # (auto) 0.08 K/uL (0.00-0.02); Immature Granulocytes % (auto) 1.1 %; Lymphocytes # (auto) 2.02 K/uL (1.2-3.4); Lymphocytes % (auto) 27.7 %; Mean Corpuscular Hemoglobin 29.1 pg (25.0-34.0); Mean Corpuscular Hgb Conc 31.7 g/dL (32.0-36.0); Mean Corpuscular Volume 91.7 fL (80.0-100.0); Mean Platelet Volume 10.5 fL (9.4-12.4); Monocytes # (auto) 0.64 K/uL (0.24-0.82); Monocytes % (auto) 8.8 %; Platelet Count 243 K/uL (130-400); RDW Coefficient of Variation 15.9 % (11.5-14.5); RDW Standard Deviation 51.3 fL (36.4-46.3); Red Blood Count 3.13 M/uL (4.63-6.08); White Blood Count 7.29 K/ul (4.8-10.8)
[2022-11-11 07:44] LABS: BUN Creatinine Ratio 20.7 (10-20); Calcium 8.4 mg/dl (8.5-10.1); Creatinine Clr Calc Pharmacy 158.4 ml/min; Est GFR (African American) 122.3 ml/min; Est GFR (Non-African American) 105.5 ml/min; Potassium 3.8 mmol/L (3.5-5.1)
[2022-11-11] MEDS: PREGABALIN 75 MG CAP PO SCH ×2 (07:51→20:45)
[2022-11-11] MEDS: ENALAPRIL MALEATE 10 MG TAB PO SCH ×2 (07:52→20:52)
[2022-11-11] MEDS: carvediloL 6.25 MG TAB PO SCH ×2 (07:52→20:47)
[2022-11-11] MEDS: CALCIUM 600MG + VIT D 400 IU TAB PO SCH ×2 (07:52→20:49)
[2022-11-11] MEDS: DOCUSATE SODIUM 100 MG CAP PO SCH ×3 (07:52→21:21)
[2022-11-11] MEDS: MIRABEGRON ER 25 MG TAB PO SCH (07:53)
[2022-11-11] MEDS: SENNA 8.6 MG TAB PO SCH ×2 (07:53→20:48)
[2022-11-11] MEDS: PANTOprazole 40 MG TAB PO SCH ×2 (07:53→20:50)
[2022-11-11] MEDS: tiZANidine HCL 4 MG TABLET PO SCH ×3 (07:53→20:51)
[2022-11-11] MEDS: CETIRIZINE HCL 10 MG TABLET PO SCH (07:54)
[2022-11-11] MEDS: FUROSEMIDE 40 MG TAB PO SCH (07:54)
[2022-11-11] MEDS: CLOPIDOGREL BISULFATE 75 MG TAB PO SCH (07:54)
[2022-11-11] MEDS: SPIRONOLACTONE 25 MG TAB PO SCH (07:54)
[2022-11-11] MEDS: MAGNESIUM OXIDE 400 MG TAB PO SCH (07:55)
[2022-11-11] MEDS: BACLOFEN 10 MG TAB PO SCH ×4 (07:59→21:09)
[2022-11-11] MEDS: LIDOCAINE 5% 1 PATCH TD SCH (08:01)
[2022-11-11] MEDS: ARTIFICIAL TEARS OP SCH ×4 (08:02→20:46)
[2022-11-11] MEDS: ENEMEEZ PR SCH (08:03)
[2022-11-11] MEDS: INSULIN ASPART PER UNIT SC SCH ×4 (08:43→20:53)
[2022-11-11] MEDS: CHOLECALCIFEROL 1,000 UNITS 25 MCG TAB PO SCH (12:11)
[2022-11-11] MEDS: CYANOCOBALAMIN (B-12) 500 MCG TABLET PO SCH (12:11)
--- NOTE | 2022-11-11 12:50 | Orthopedic Progress Note ---
Date of Service November 11, 2022 Assessment & Plan (1) Altered mental status: Plan: At this time patient seems to be improving dramatically. He is quite comfortable. From orthopedic standpoint I am comfortable with him transferring from bed to chair. Admission and Anticipated Discharge Date Admission Date: November 04, 2022 Subjective Patient's back pain is controlled. Physical Exam Physical Exam: On exam he is up in bed. He is comfortable. He is alert and oriented. Results & Data ([facility]) Vital Signs (Past 12 Hours) Vital Signs Temp Pulse Pulse Pulse Resp BP Pulse Ox 11/11/22 10:38 36.4 C L 70 18 126/84 93 11/11/22 08:00 11/11/22 07:48 36.5 C 70 18 149/94 H 96 11/11/22 06:59 73 11/11/22 03:03 36.5 C 69 20 152/84 H 95 O2 Del Method O2 Flow Rate 11/11/22 10:38 Room Air 11/11/22 08:00 Room Air 11/11/22 07:48 Room Air 11/11/22 06:59 11/11/22 03:03 Nasal Cannula 2
--- NOTE | 2022-11-11 14:18 | Hospitalist Progress Note ---
Date of Service November 11, 2022 Assessment & Plan (1) Paralysis: Plan: Chronic lower extremity paraplegia related to previous spine surgeries. Supportive care. He has a suprapubic catheter in place. Neurology consult and recommendations appreciated. Pain Management also consulted. Supportive care (2) Discitis of thoracic region: Plan: Ruled out. Gram stain is negative. Antibiotics have been discontinued. Discitis ruled out during intraoperative evaluation on November 09. (3) UTI (urinary tract infection): Plan: Initially started on ceftriaxone after blood and urine cultures collected. E. coli and Morganella morganii isolated. Treated with daptomycin and Zosyn. Antibiotics have now been discontinued (4) Type 2 diabetes mellitus: Plan: Home meds include metformin, Ozempic. Hold while inpatient. Weight based SSI, Accuchecks ACHS. (5) CAD (coronary artery disease): Plan: - History of multiple ZOFIA placement including PCI of the LAD. Episode of unstable angina 2002. Also s/p PCI to RCA, and catheterization August 2012 with PCI to LAD. Negative dobutamine stress echo/EKG in September. Continue Plavix + ASA. Continue amlodipine, HCTZ, metoprolol, spironolactone. Ramipril switched to enalapril per hospital formulary. (6) A-fib: Plan: Atrial paced, not on anticoagulation as outpatient. ChadsVasc score of 4. Continue metoprolol. (7) Hypertension: Plan: Treated with carvedilol, spironolactone, lisinopril. Switched to ramipril per hospital formulary. (8) Aortic insufficiency: Plan: Noted, stable. (9) Aortic aneurysm: Plan: Noted, stable. Follows with Vascular Surgery. (10) Neurogenic bladder: Plan: Has a chronic suprapubic catheter. Local care. (11) GERD (gastroesophageal reflux disease): Plan: Continue PPI therapy. Omeprazole switched to pantoprazole per hospital formulary. (12) DENICE (obstructive sleep apnea): Plan: Patient refuses CPAP at night, prefers 2LNC with sleep. Mild hypercapnea noted on ABG. (13) Depression: Plan: Continue duloxetine and trazodone at night. Plan DNR/DNI in non-surgical circumstances Disposition: OT and PT assessments requested. To be determined. Admission and Anticipated Discharge Date Admission Date: November 04, 2022 Subjective Somewhat lethargic this morning from lack of sleep last night and possibly from pain medication. I do not think he has CO2 narcosis. Orthopedic entry noted. 96% saturation on room air. Hemoglobin stable at 9. Postoperative day #2 after removal of loose pedicle screws at T4. Appreciate orthopedic spine follow-up Review of Systems Review of Systems: Constitutional-no fever or chills ENT-no blurred vision, no double vision, no epistaxis, no sore throat Respiratory-no cough, no wheezing, no shortness of breath Cardiac-no palpitations, no chest pain, no syncope GI-no nausea, vomiting, diarrhea, melena, hematochezia -no urinary retention, no urinary incontinence, no dysuria, no hematuria Musculoskeletal-thoracic spine pain postoperatively as expected Skin-no bruising, no rashes, no pruritus Neuro-no isolated weakness, no paresthesia, no weakness Psych-no depression, no anxiety Physical Exam Physical Exam: General-somewhat lethargic this morning. Obese. HEENT-head atraumatic and normocephalic Neck- trachea midline Chest-clear anteriorly. No rales wheezing or rhonchi Cardiac-regular rate and rhythm, normal S1 and S2 Abdomen-normal bowel sounds, obese . Suprapubic catheter in place Extremities-no cyanosis, clubbing. Bilateral chronic venous stasis changes Neuro-lower extremity paraplegia from old spinal cord injury Psych-unremarkable Results & Data Results & Data ([facility]) Vital Signs (Past 12 Hours) Vital Signs Temp Pulse Pulse Pulse Resp BP Pulse Ox 11/11/22 10:38 36.4 C L 70 18 126/84 93 11/11/22 08:00 11/11/22 07:48 36.5 C 70 18 149/94 H 96 11/11/22 06:59 73 11/11/22 03:03 36.5 C 69 20 152/84 H 95 O2 Del Method O2 Flow Rate 11/11/22 10:38 Room Air 11/11/22 08:00 Room Air 11/11/22 07:48 Room Air 11/11/22 06:59 11/11/22 03:03 Nasal Cannula 2 Laboratory Results 11/11/22 07:03 11/11/22 07:03 PG Care Time/CCT Total # of Minutes Spent Total Time Spent with Patient: Total time spent is greater than 50% in coordination of care (as documented) at patient's floor/unit and/or counseling patient: Coding Level of Care Code 70825 SUB INP/OBS CARE MIN Diagnoses Paralysis G83.9 Discitis of thoracic region M46.44 UTI (urinary tract infection) T83.511D; N39.0 Urinary tract infection type: catheter-associated UTI Indwelling urinary catheter type: unspecified Encounter type: subsequent encounter Type 2 diabetes mellitus E11.9 CAD (coronary artery disease) I25.10 A-fib I48.0 Atrial fibrillation type: paroxysmal Hypertension I10 Hypertension type: essential hypertension Aortic insufficiency I35.1 Aortic aneurysm I71.9 Neurogenic bladder N31.9 GERD (gastroesophageal reflux disease) K21.9 DENICE (obstructive sleep apnea) G47.33 Depression F32.9 (1) UTI (urinary tract infection) Urinary tract infection type: catheter-associated UTI Indwelling urinary catheter type: unspecified Encounter type: subsequent encounter Qualified Code(s): T83.511D - Infection and inflammatory reaction due to indwelling urethral catheter, subsequent encounter; N39.0 - Urinary tract infection, site not specified (2) A-fib Atrial fibrillation type: paroxysmal Qualified Code(s): I48.0 - Paroxysmal atrial fibrillation (3) Hypertension Hypertension type: essential hypertension Qualified Code(s): I10 - Essential (primary) hypertension
[2022-11-11] MEDS: RENACIDIN IR SCH (14:35)
[2022-11-11] MEDS: ASPIRIN 81 MG ECTAB PO SCH (20:49)
[2022-11-11] MEDS: DULoxetine HCL 60 MG CAP PO SCH (20:50)
[2022-11-11] MEDS: POLYETHYLENE (MIRALAX) 17 GM PACK PO SCH (21:09)
[2022-11-11] MEDS: traZODone HCL 50 MG TAB PO SCH (21:09)
[2022-11-11] MEDS: ACETAMINOPHEN 325 MG TAB PO PRN (23:48)
[2022-11-12] MEDS: LIDOCAINE 5% OINT 30 GM TUBE TOP SCH ×4 (00:39→18:03)
[2022-11-12] MEDS: ACETAMINOPHEN 325 MG TAB PO PRN ×2 (04:20→21:53)
[2022-11-12] MEDS: HYDROcodone/ACETAMINOPHEN 10/325 TAB PO PRN (06:23)
[2022-11-12 07:01] LABS: Basophils # (auto) 0.02 K/uL (0-0.2); Basophils % (auto) 0.3 %; Eosinophils # (auto) 0.18 K/uL (0-0.50); Eosinophils % (auto) 2.8 %; Hematocrit (blood only) 27.3 % (40.1-51.0); Immature Granulocytes # (auto) 0.06 K/uL (0.00-0.02); Immature Granulocytes % (auto) 0.9 %; Lymphocytes # (auto) 1.48 K/uL (1.2-3.4); Lymphocytes % (auto) 23.4 %; Mean Corpuscular Hemoglobin 29.3 pg (25.0-34.0); Mean Corpuscular Volume 88.9 fL (80.0-100.0); Mean Platelet Volume 10.8 fL (9.4-12.4); Monocytes # (auto) 0.46 K/uL (0.24-0.82); Monocytes % (auto) 7.3 %; Neutrophils # (auto) 4.13 K/uL (1.4-6.5); Neutrophils % (auto) 65.3 %; Platelet Count 228 K/uL (130-400); RDW Coefficient of Variation 15.9 % (11.5-14.5); RDW Standard Deviation 49.5 fL (36.4-46.3); Red Blood Count 3.07 M/uL (4.63-6.08); White Blood Count 6.33 K/ul (4.8-10.8)
--- NOTE | 2022-11-12 08:33 | Hospitalist Progress Note ---
Date of Service November 12, 2022 Assessment & Plan (1) Paralysis: Plan: Chronic lower extremity paraplegia related to previous spine surgeries. He has a suprapubic catheter in place. Neurology consulted and recommended a pain management consult to check the baclofen pump. Neurology recommended Continue baclofen 10 milligrams 4 times a day. Continue duloxetine 120 mg each evening Continue dantrolene, tizanidine, Lyrica, at usual doses. Could consider low-dose benzodiazepines ( for example, diazepam, 2 mg 3 times a day, as needed) to help with pain and spasms. This will make him sleepy, but if we are careful in dosing, we can control this. Besides, a little rest/sleepiness may help his pain and recovery). Pain Management also consulted and were unable to interrogate the baclofen pump due to the brand not being [employer]. The was to have his recent pump refill information uploaded into the portal for review. Per Pain Management patient did not appear to be in baclofen withdrawal. Supportive care OT evaluated and discharged from OT services Patient is able to return home with his spouse and resume their regular routine of care. (2) Acute UTI: Plan: Initially started on ceftriaxone after blood and urine cultures collected. E. coli and Morganella morganii isolated. Treated with daptomycin and Zosyn. Antibiotics have now been discontinued (3) Type 2 diabetes mellitus: Plan: Home meds include metformin, Ozempic. Hold while inpatient. Weight based SSI, Accuchecks ACHS. (4) Hypertension: Plan: Treated with carvedilol, spironolactone, lisinopril. Switched to ramipril per hospital formulary. (5) A-fib: Plan: Atrial paced, not on anticoagulation as outpatient. ChadsVasc score of 4. Continue metoprolol. (6) GERD (gastroesophageal reflux disease): Plan: Continue PPI therapy with pantoprazole. (7) CAD (coronary artery disease): Plan: History of multiple ZOFIA placement including PCI of the LAD. Episode of unstable angina 2002. Also s/p PCI to RCA, and catheterization August 2012 with PCI to LAD. Negative dobutamine stress echo/EKG in September 2022. Continue Plavix + ASA. Continue amlodipine, HCTZ, metoprolol, spironolactone. Ramipril switched to enalapril per hospital formulary. (8) DENICE (obstructive sleep apnea): Plan: Patient refuses CPAP at night, prefers 2LNC with sleep. Mild hypercapnea noted on ABG. (9) Neurogenic bladder: Plan: Has a chronic suprapubic catheter. Local care. (10) Depression: Plan: Continue duloxetine and trazodone at night. Plan DNR/DNI in non-surgical circumstances Disposition: OT and PT assessments requested. Awaiting PT evaluation Admission and Anticipated Discharge Date Admission Date: November 04, 2022 Subjective Patient is sitting up in bed eating lunch. Patient is 97% saturation on room air. Hemoglobin stable at 9. Postoperative day #3 after removal of loose pedicle screws at T4. Appreciate orthopedic spine follow-up. Ortho stated ok for patient to go from bed to chair. Patient states he wants to get into the chair after he finishes his lunch. He states he is feeling well today. Review of Systems Constitutional: no fever, no chills, no sweats and no insomnia Cardiovascular: no chest pain, no dyspnea and no palpitations Gastrointestinal: no abdominal pain, no nausea, no vomiting, no change in bowel habits and no diarrhea/loose stools Musculoskeletal: Has suprapubic catheter, no complaints Integumentary: no rash, no lesions, no new lesions and no sores Neurologic: + paralysis; no falls, no seizure-like activity and no headache(s) Psychiatric: no depression, no irritability and no anxiety Hematologic / Lymphatic: no easy bleeding, no easy bruising and no night sweats Allergy / Immunological: no tongue swelling, no urticaria and no cough Physical Exam Constitutional: WD/WN, vitals as above Neck: trachea midline, no thyromegaly Respiratory: normal respiratory effort, lungs clear to auscultation Cardiovascular: RRR, no murmur, no edema Extremities: + edema Gastrointestinal (Abdomen): normal bowel sounds, soft, nontender, no hepatosplenomegaly Suprapubic catheter Psychiatric: A+Ox3, euthymic affect Results & Data Results & Data ([facility]) Vital Signs (Past 12 Hours) Vital Signs Temp Pulse Pulse Resp BP BP Pulse Ox 11/12/22 07:50 36.6 C 69 19 170/81 H 96 11/12/22 07:47 70 11/12/22 03:52 36.5 C 86 20 149/89 H 94 11/12/22 01:59 70 11/11/22 23:00 36.6 C 72 18 111/73 92 O2 Del Method O2 Flow Rate 11/12/22 07:50 Nasal Cannula 2 11/12/22 07:47 11/12/22 03:52 Room Air 11/12/22 01:59 11/11/22 23:00 Room Air Laboratory Results Abnormal lab results 11/09/22 11/11/22 11/11/22 Range/Units 14:44 16:35 19:47 RBC (4.63-6.08) M/uL Hgb (14.0-18.0) g/dl Hct (40.1-51.0) % RDW Std Deviation (36.4-46.3) fL RDW Coeff of Jimi (11.5-14.5) % Immature Gran # (Auto) (0.00-0.02) K/uL Creatinine (0.6-1.4) mg/dl BUN/Creatinine Ratio (10-20) POC Glucose 102 H 172 H (70-99) mg/dl Crossmatch See Detail 11/12/22 11/12/22 11/12/22 Range/Units 06:38 06:38 11:34 RBC 3.07 L (4.63-6.08) M/uL Hgb 9.0 L (14.0-18.0) g/dl Hct 27.3 L (40.1-51.0) % RDW Std Deviation 49.5 H (36.4-46.3) fL RDW Coeff of Jimi 15.9 H (11.5-14.5) % Immature Gran # (Auto) 0.06 H (0.00-0.02) K/uL Creatinine 0.56 L (0.6-1.4) mg/dl BUN/Creatinine Ratio 23.2 H (10-20) POC Glucose 120 H (70-99) mg/dl Crossmatch PG Care Time/CCT Total # of Minutes Spent Total Time Spent with Patient: Total time spent is greater than 50% in coordination of care (as documented) at patient's floor/unit and/or counseling patient: Coding Level of Care Code 22806 SUB INP/OBS CARE 25MIN Diagnoses Paralysis G83.9 Acute UTI N39.0 Type 2 diabetes mellitus E11.9 Hypertension I10 Hypertension type: essential hypertension A-fib I48.0 Atrial fibrillation type: paroxysmal GERD (gastroesophageal reflux disease) K21.9 CAD (coronary artery disease) I25.10 DENICE (obstructive sleep apnea) G47.33 Neurogenic bladder N31.9 Depression F32.9 (1) A-fib Atrial fibrillation type: paroxysmal Qualified Code(s): I48.0 - Paroxysmal atrial fibrillation (2) Hypertension Hypertension type: essential hypertension Qualified Code(s): I10 - Essential (primary) hypertension
[2022-11-12] MEDS: ARTIFICIAL TEARS OP SCH ×4 (08:36→21:52)
[2022-11-12] MEDS: INSULIN ASPART PER UNIT SC SCH ×4 (08:36→21:59)
[2022-11-12] MEDS: ENALAPRIL MALEATE 10 MG TAB PO SCH ×2 (08:37→21:56)
[2022-11-12] MEDS: MAGNESIUM OXIDE 400 MG TAB PO SCH (08:37)
[2022-11-12] MEDS: CETIRIZINE HCL 10 MG TABLET PO SCH (08:37)
[2022-11-12] MEDS: SPIRONOLACTONE 25 MG TAB PO SCH (08:37)
[2022-11-12] MEDS: PANTOprazole 40 MG TAB PO SCH ×2 (08:37→21:55)
[2022-11-12] MEDS: tiZANidine HCL 4 MG TABLET PO SCH ×3 (08:37→21:55)
[2022-11-12] MEDS: MIRABEGRON ER 25 MG TAB PO SCH (08:37)
[2022-11-12] MEDS: CLOPIDOGREL BISULFATE 75 MG TAB PO SCH (08:38)
[2022-11-12] MEDS: SENNA 8.6 MG TAB PO SCH ×2 (08:38→21:57)
[2022-11-12] MEDS: carvediloL 6.25 MG TAB PO SCH ×2 (08:38→21:58)
[2022-11-12] MEDS: FUROSEMIDE 40 MG TAB PO SCH (08:38)
[2022-11-12] MEDS: CALCIUM 600MG + VIT D 400 IU TAB PO SCH ×2 (08:38→21:58)
[2022-11-12 08:50] LABS: BUN Creatinine Ratio 23.2 (10-20); Calcium 8.9 mg/dl (8.5-10.1); Creatinine Clr Calc Pharmacy 164.5 ml/min; Est GFR (African American) 124.1 ml/min; Potassium 4.1 mmol/L (3.5-5.1)
[2022-11-12] MEDS: LIDOCAINE 5% 1 PATCH TD SCH (08:50)
[2022-11-12] MEDS: DOCUSATE SODIUM 100 MG CAP PO SCH ×3 (08:50→21:53)
[2022-11-12] MEDS: BACLOFEN 10 MG TAB PO SCH ×4 (08:50→21:53)
[2022-11-12] MEDS: PREGABALIN 75 MG CAP PO SCH ×2 (08:50→21:53)
[2022-11-12] MEDS: ENEMEEZ PR SCH (08:51)
[2022-11-12] MEDS: CHOLECALCIFEROL 1,000 UNITS 25 MCG TAB PO SCH (12:42)
[2022-11-12] MEDS: CYANOCOBALAMIN (B-12) 500 MCG TABLET PO SCH (12:42)
[2022-11-12] MEDS: RENACIDIN IR SCH (16:51)
[2022-11-12] MEDS: traZODone HCL 50 MG TAB PO SCH (21:53)
[2022-11-12] MEDS: POLYETHYLENE (MIRALAX) 17 GM PACK PO SCH (21:53)
[2022-11-12] MEDS: ASPIRIN 81 MG ECTAB PO SCH (21:55)
[2022-11-12] MEDS: DULoxetine HCL 60 MG CAP PO SCH (21:59)
[2022-11-13] MEDS: LIDOCAINE 5% OINT 30 GM TUBE TOP SCH ×4 (00:30→17:27)
[2022-11-13 06:56] LABS: Hematocrit (blood only) 29.1 % (40.1-51.0); Hemoglobin 9.4 g/dl (14.0-18.0); Mean Corpuscular Hgb Conc 32.3 g/dL (32.0-36.0); Mean Corpuscular Volume 89.8 fL (80.0-100.0); Mean Platelet Volume 10.8 fL (9.4-12.4); Platelet Count 271 K/uL (130-400); RDW Coefficient of Variation 16.1 % (11.5-14.5); RDW Standard Deviation 50.4 fL (36.4-46.3); Red Blood Count 3.24 M/uL (4.63-6.08); White Blood Count 5.87 K/ul (4.8-10.8)
[2022-11-13 07:20] LABS: Calcium 9.3 mg/dl (8.5-10.1); Creatinine Clr Calc Pharmacy 162.4 ml/min; Est GFR (African American) 124.1 ml/min; Potassium 3.9 mmol/L (3.5-5.1)
--- NOTE | 2022-11-13 07:51 | Hospitalist Progress Note ---
Date of Service November 13, 2022 Assessment & Plan (1) Paralysis: Plan: Chronic lower extremity paraplegia related to previous spine surgeries. He has a suprapubic catheter in place. Neurology consulted and recommended a pain management consult to check the baclofen pump. Neurology recommended Continue baclofen 10 milligrams 4 times a day. Continue duloxetine 120 mg each evening Continue dantrolene, tizanidine, Lyrica, at usual doses. (Could consider low-dose benzodiazepines ( for example, diazepam, 2 mg 3 times a day, as needed) to help with pain and spasms. This will make him sleepy, but if we are careful in dosing, we can control this. Besides, a little rest/sleepiness may help his pain and recovery). Pain Management also consulted and were unable to interrogate the baclofen pump due to the brand not being [employer]. The was to have his recent pump refill information uploaded into the portal for review. Per Pain Management patient did not appear to be in baclofen withdrawal. Supportive care OT evaluated and discharged from OT services Patient is able to return home with his spouse and resume their regular routine of care. (2) Acute UTI: Plan: Initially started on ceftriaxone after blood and urine cultures collected. E. coli and Morganella morganii isolated. Treated with daptomycin and Zosyn. Antibiotics have now been discontinued (3) Type 2 diabetes mellitus: Plan: Home meds include metformin, Ozempic. Hold while inpatient. Weight based SSI, Accuchecks ACHS. (4) Hypertension: Plan: Treated with carvedilol, spironolactone, lisinopril. Switched to ramipril per hospital formulary. BP stable (5) A-fib: Plan: Atrial paced, not on anticoagulation as outpatient. ChadsVasc score of 4. Continue metoprolol. (6) GERD (gastroesophageal reflux disease): Plan: Continue PPI therapy with pantoprazole. (7) CAD (coronary artery disease): Plan: History of multiple ZOFIA placement including PCI of the LAD. Episode of unstable angina 2002. Also s/p PCI to RCA, and catheterization August 2012 with PCI to LAD. Negative dobutamine stress echo/EKG in September 2022. Continue Plavix + ASA. Continue amlodipine, HCTZ, metoprolol, spironolactone. Ramipril switched to enalapril per hospital formulary. (8) DENICE (obstructive sleep apnea): Plan: Patient refuses CPAP at night, prefers 2LNC with sleep. Mild hypercapnea noted on ABG. (9) Neurogenic bladder: Plan: Has a chronic suprapubic catheter. Local care. (10) Depression: Plan: Continue duloxetine and trazodone at night. Plan DNR/DNI in non-surgical circumstances Disposition: OT and PT assessments requested. Awaiting PT evaluation Admission and Anticipated Discharge Date Admission Date: November 04, 2022 Subjective Patient rick no new complaints today. He is anxious to get home. His stated she didn't want him to come home too early. I left a message for ortho regar ding his drain. Review of Systems Constitutional: no fever, no chills, no sweats and no insomnia Cardiovascular: no chest pain, no dyspnea and no palpitations Gastrointestinal: no abdominal pain, no nausea, no vomiting, no change in bowel habits and no diarrhea/loose stools Musculoskeletal: Has suprapubic catheter, no complaints Integumentary: no rash, no lesions, no new lesions and no sores Neurologic: + paralysis; no falls, no seizure-like activity and no headache(s) Psychiatric: no depression, no irritability and no anxiety Hematologic / Lymphatic: no easy bleeding, no easy bruising and no night sweats Allergy / Immunological: no tongue swelling, no urticaria and no cough Physical Exam Constitutional: WD/WN, vitals as above Neck: trachea midline, no thyromegaly Respiratory: normal respiratory effort, lungs clear to auscultation Cardiovascular: RRR, no murmur, no edema Extremities: + edema Gastrointestinal (Abdomen): normal bowel sounds, soft, nontender, no hepatosplenomegaly suprapubic catheter Musculoskeletal: patient in bed, lower extremity paraplegia Psychiatric: A+Ox3, euthymic affect Results & Data Results & Data ([facility]) Vital Signs (Past 12 Hours) Vital Signs Temp Pulse Pulse Resp BP Pulse Ox O2 Del Method 11/13/22 07:36 36.7 C 71 18 162/84 H Room Air 11/13/22 03:29 36.6 C 72 18 143/88 H 91 Room Air 11/13/22 00:01 36.5 C 78 18 142/85 H 92 Room Air 11/12/22 23:47 77 11/12/22 19:58 36.6 C 75 18 135/75 95 Room Air Laboratory Results Abnormal lab results 11/09/22 11/12/22 11/12/22 Range/Units 14:44 06:38 11:34 RBC (4.63-6.08) M/uL Hgb (14.0-18.0) g/dl Hct (40.1-51.0) % RDW Std Deviation (36.4-46.3) fL RDW Coeff of Jimi (11.5-14.5) % Creatinine 0.56 L (0.6-1.4) mg/dl BUN/Creatinine Ratio 23.2 H (10-20) POC Glucose 120 H (70-99) mg/dl Crossmatch See Detail 11/12/22 11/12/22 11/13/22 Range/Units 16:45 20:37 06:18 RBC 3.24 L (4.63-6.08) M/uL Hgb 9.4 L (14.0-18.0) g/dl Hct 29.1 L (40.1-51.0) % RDW Std Deviation 50.4 H (36.4-46.3) fL RDW Coeff of Jimi 16.1 H (11.5-14.5) % Creatinine (0.6-1.4) mg/dl BUN/Creatinine Ratio (10-20) POC Glucose 109 H 125 H (70-99) mg/dl Crossmatch 11/13/22 Range/Units 06:18 RBC (4.63-6.08) M/uL Hgb (14.0-18.0) g/dl Hct (40.1-51.0) % RDW Std Deviation (36.4-46.3) fL RDW Coeff of Jimi (11.5-14.5) % Creatinine 0.56 L (0.6-1.4) mg/dl BUN/Creatinine Ratio 25.0 H (10-20) POC Glucose (70-99) mg/dl Crossmatch PG Care Time/CCT Total # of Minutes Spent Total Time Spent with Patient: Total time spent is greater than 50% in coordination of care (as documented) at patient's floor/unit and/or counseling patient: Coding Level of Care Code 34684 SUB INP/OBS CARE 1/25MIN Diagnoses Paralysis G83.9 Acute UTI N39.0 Type 2 diabetes mellitus E11.9 Hypertension I10 Hypertension type: essential hypertension A-fib I48.0 Atrial fibrillation type: paroxysmal GERD (gastroesophageal reflux disease) K21.9 CAD (coronary artery disease) I25.10 DENICE (obstructive sleep apnea) G47.33 Neurogenic bladder N31.9 Depression F32.9 (1) A-fib Atrial fibrillation type: paroxysmal Qualified Code(s): I48.0 - Paroxysmal atrial fibrillation (2) Hypertension Hypertension type: essential hypertension Qualified Code(s): I10 - Essential (primary) hypertension
[2022-11-13] MEDS: FUROSEMIDE 40 MG TAB PO SCH (08:26)
[2022-11-13] MEDS: SPIRONOLACTONE 25 MG TAB PO SCH (08:26)
[2022-11-13] MEDS: CETIRIZINE HCL 10 MG TABLET PO SCH (08:26)
[2022-11-13] MEDS: carvediloL 6.25 MG TAB PO SCH ×2 (08:27→20:06)
[2022-11-13] MEDS: CLOPIDOGREL BISULFATE 75 MG TAB PO SCH (08:27)
[2022-11-13] MEDS: SENNA 8.6 MG TAB PO SCH ×2 (08:27→20:04)
[2022-11-13] MEDS: CALCIUM 600MG + VIT D 400 IU TAB PO SCH ×2 (08:27→20:04)
[2022-11-13] MEDS: ENALAPRIL MALEATE 10 MG TAB PO SCH ×2 (08:27→20:05)
[2022-11-13] MEDS: MAGNESIUM OXIDE 400 MG TAB PO SCH (08:27)
[2022-11-13] MEDS: MIRABEGRON ER 25 MG TAB PO SCH (08:27)
[2022-11-13] MEDS: tiZANidine HCL 4 MG TABLET PO SCH ×3 (08:28→20:05)
[2022-11-13] MEDS: PANTOprazole 40 MG TAB PO SCH ×2 (08:28→20:05)
[2022-11-13] MEDS: ARTIFICIAL TEARS OP SCH ×4 (08:28→20:04)
[2022-11-13] MEDS: LIDOCAINE 5% 1 PATCH TD SCH (08:29)
[2022-11-13] MEDS: DOCUSATE SODIUM 100 MG CAP PO SCH ×3 (08:31→20:27)
[2022-11-13] MEDS: ENEMEEZ PR SCH (08:31)
[2022-11-13] MEDS: BACLOFEN 10 MG TAB PO SCH ×4 (08:44→20:27)
[2022-11-13] MEDS: PREGABALIN 75 MG CAP PO SCH ×2 (08:44→20:26)
[2022-11-13] MEDS: INSULIN ASPART PER UNIT SC SCH ×4 (08:44→20:11)
[2022-11-13] MEDS: HYDROcodone/ACETAMINOPHEN 10/325 TAB PO PRN ×2 (12:43→20:27)
[2022-11-13] MEDS: CYANOCOBALAMIN (B-12) 500 MCG TABLET PO SCH (12:44)
[2022-11-13] MEDS: CHOLECALCIFEROL 1,000 UNITS 25 MCG TAB PO SCH (12:44)
[2022-11-13] MEDS: RENACIDIN IR SCH (15:37)
[2022-11-13] MEDS: DULoxetine HCL 60 MG CAP PO SCH (20:04)
[2022-11-13] MEDS: ASPIRIN 81 MG ECTAB PO SCH (20:05)
[2022-11-13] MEDS: traZODone HCL 50 MG TAB PO SCH (20:27)
[2022-11-13] MEDS: POLYETHYLENE (MIRALAX) 17 GM PACK PO SCH (20:28)
[2022-11-14] MEDS: LIDOCAINE 5% OINT 30 GM TUBE TOP SCH ×3 (01:26→12:37)
[2022-11-14 07:11] LABS: BUN Creatinine Ratio 25.8 (10-20); Calcium 9.2 mg/dl (8.5-10.1); Est GFR (Non-African American) 102.7 ml/min
[2022-11-14] MEDS: carvediloL 6.25 MG TAB PO SCH (08:40)
[2022-11-14] MEDS: PANTOprazole 40 MG TAB PO SCH (08:41)
[2022-11-14] MEDS: ENALAPRIL MALEATE 10 MG TAB PO SCH (08:41)
[2022-11-14] MEDS: FUROSEMIDE 40 MG TAB PO SCH (08:42)
[2022-11-14] MEDS: MIRABEGRON ER 25 MG TAB PO SCH (08:42)
[2022-11-14] MEDS: CALCIUM 600MG + VIT D 400 IU TAB PO SCH (08:42)
[2022-11-14] MEDS: SENNA 8.6 MG TAB PO SCH (08:42)
[2022-11-14] MEDS: CETIRIZINE HCL 10 MG TABLET PO SCH (08:42)
[2022-11-14] MEDS: MAGNESIUM OXIDE 400 MG TAB PO SCH (08:43)
[2022-11-14] MEDS: CLOPIDOGREL BISULFATE 75 MG TAB PO SCH (08:43)
[2022-11-14] MEDS: ARTIFICIAL TEARS OP SCH ×2 (08:43→12:37)
[2022-11-14] MEDS: LIDOCAINE 5% 1 PATCH TD SCH (08:43)
[2022-11-14] MEDS: SPIRONOLACTONE 25 MG TAB PO SCH (08:43)
[2022-11-14] MEDS: tiZANidine HCL 4 MG TABLET PO SCH ×2 (08:44→12:37)
[2022-11-14] MEDS: DOCUSATE SODIUM 100 MG CAP PO SCH ×2 (08:57→12:37)
[2022-11-14] MEDS: PREGABALIN 75 MG CAP PO SCH (08:57)
[2022-11-14] MEDS: ACETAMINOPHEN 325 MG TAB PO PRN (08:57)
[2022-11-14] MEDS: BACLOFEN 10 MG TAB PO SCH ×2 (08:58→12:45)
[2022-11-14] MEDS: ENEMEEZ PR SCH (08:58)
[2022-11-14] MEDS: INSULIN ASPART PER UNIT SC SCH ×2 (08:59→12:45)
--- NOTE | 2022-11-14 11:05 | Orthopedic Progress Note ---
Date of Service November 14, 2022 Assessment & Plan (1) Sepsis secondary to UTI: Plan: At this time from an orthopedic standpoint he is safe to return home. The drain may be discontinued if he is discharged today. Admission and Anticipated Discharge Date Admission Date: November 04, 2022 Subjective Back pain is controlled feels improved from his preoperative status. Physical Exam Physical Exam: On exam is alert and oriented. He is very comfortable. Results & Data ([facility]) Vital Signs (Past 12 Hours) Vital Signs Temp Pulse Pulse Resp BP BP Pulse Ox 11/14/22 07:46 70 11/14/22 07:32 36.5 C 70 19 137/82 96 11/14/22 02:44 36.6 C 84 20 123/83 96 O2 Del Method O2 Flow Rate 11/14/22 07:46 11/14/22 07:32 Nasal Cannula 2 11/14/22 02:44 Nasal Cannula 2
--- NOTE | 2022-11-14 11:28 | Discharge Summary ---
Date of Service November 14, 2022 Admission HPI Per Admitting Provider Chuck Snyder is a 67-year-old male with past medical history significant for thoracic spinal stenosis s/p surgery 10/11, paralysis, neurogenic bladder, DENICE, CAD, A. fib, aortic insufficiency, aortic aneurysm, pacemaker placement, DM2, hyperlipidemia, GERD, hypertension, depression who is presenting today with groin pain and fever over the past week. Patient had back surgery with Dr. Almaraz 10/07 and reports night sweats since discharge, had been worse over the past week since around New Year's. He has not had any reported fevers at home but is having some night sweats soaking his clothes, with intermittent chills. He is also complaining of bilateral groin pain. He has home health nurses, he recently noted that his urine had a foul odor and had sediment. He changed his suprapubic catheter and collected a urinalysis, which apparently was thought suspicious for infection. He is presenting today as the groin pain, night sweats, and chills have continued and he is starting to have acute exacerbation of his chronic auditory hallucinations. On presentation to ED, he had a temperature of 100.5 F, otherwise vital signs within normal limits and stable. UA appears infected with nitrites, leuk esterase, WBCs, and bacteria. Labs notable for leukopenia and chronic, stable anemia. Sodium 132, calcium 8.3. No other electrolyte abnormalities. Renal and hepatic function at baseline. COVID/flu/RSV negative. Chest CTA, head CT, thoracic spine CT all unremarkable. Admission Exam Per Admitting Provider General: awake, alert, no apparent distress Head: Normocephalic, atraumatic ENT: PERRL, EOMI, no pharyngeal exudate, mucous membranes moist Chest: Clear to auscultation, on room air, no adventitious breath sounds Cardiac: Regular rate and rhythm, no murmur, no JVD, normal peripheral pulses, good capillary refill Abdominal: mild suprapubic pain with palpation; no rebound or guarding; NABS x 4 quadrants, soft Extremities: Normal inspection, no peripheral edema or erythema, calfs nontender to palpation Psych: Normal mood and affect Neuro: AAO x 3, strength intact bilaterally and rated 5/5, no motor deficits, speech is clear, no peripheral sensory deficits Skin: no rash or erythema Principal Diagnosis UTI Discharge Exam Constitutional WD/WN, vitals as above Neck trachea midline, no thyromegaly Respiratory normal respiratory effort, lungs clear to auscultation Cardiovascular Rate/Rhythm: regular rate and regular rhythm Heart Sounds: normal S1, normal S2 and + murmur Extremities: + edema +2/6 systolic murmur Gastrointestinal (Abdomen) normal bowel sounds, soft, nontender, no hepatosplenomegaly Obese Skin no rashes, warm and dry Drain pulled this AM surgical dressing site clean and dry Neurologic lower extremity paraplegia Psychiatric A+Ox3, euthymic affect Discharge Data Allergies Allergy/AdvReac Type Severity Reaction Status Date / Time erythromycin base Allergy Severe Anaphylaxis Verified 10/07/22 09:38 Fish Containing Products Allergy Severe THROAT Verified 10/07/22 09:38 SWELLS loratadine Allergy Severe BREATHING Verified 10/07/22 09:38 DIFFICULTY shellfish derived Allergy Severe throat Verified 10/07/22 09:38 gets scratchy diphenhydramine Allergy Intermediate HIVES Verified 10/07/22 09:38 Macrolide Antibiotics Allergy Intermediate E-MYCIN=HIVES; Verified 10/07/22 09:38 "MYCINS"--JAUNDICE pork derived (porcine) Allergy Verified 11/10/22 15:12 Pork/Porcine Containing Allergy Verified 11/10/22 15:12 Products rofecoxib AdvReac Severe CHEST PAIN Verified 10/07/22 09:38 zolpidem AdvReac Severe NIGHTMARES Verified 10/07/22 09:38 oxycodone AdvReac Intermediate TERRIBLE Verified 10/07/22 09:38 DREAMS,DISORIENTATION Consultations 11/04/22 21:12 ED Decision to Admit Stat 11/06/22 09:48 Consult Urology Routine 11/07/22 11:58 Consult Neurology Routine 11/07/22 16:41 Consult Pain Management Routine 11/07/22 21:17 Consult Orthopedic Surgery Routine Procedures Performed Operation Date: 11/09/22 09:40 Actual Procedures p Incision and drainage thoracic spine with evacuation of seroma, placement of antibiotic beads - Barry Almaraz DO s removal of T5 and T7 pedicle screws, - Barry Almaraz DO Ordered Studies 11/04/22 18:08 CT angio chest PE protocol Stat CT head/brain wo con Stat CT thoracic spine w con Stat 11/07/22 12:00 CT abdomen wo/w con Routine 11/09/22 11:00 FL thoracic spine 2V Routine Hospital Course (1) Paralysis: Chronic lower extremity paraplegia related to previous spine surgeries. He has a suprapubic catheter in place. Neurology consulted and recommended a pain management consult to check the baclofen pump. Neurology recommended Continue baclofen 10 milligrams 4 times a day. Continue duloxetine 120 mg each evening Continue dantrolene, tizanidine, Lyrica, at usual doses. Pain Management also consulted and were unable to interrogate the baclofen pump due to the brand not being [employer]. The was to have his recent pump refill information uploaded into the portal for review. Per Pain Management patient did not appear to be in baclofen withdrawal. Supportive care OT evaluated and discharged from OT services Patient is able to return home with his spouse and resume their regular routine of care. (2) Acute UTI: Initially started on ceftriaxone after blood and urine cultures collected. E. coli and Morganella morganii isolated. Treated with daptomycin and Zosyn. Antibiotics have now been discontinued (3) Type 2 diabetes mellitus: Home meds include metformin, Ozempic. Hold while inpatient. Weight based SSI, Accuchecks ACHS. (4) Hypertension: Treated with carvedilol, spironolactone, lisinopril. Switched to ramipril per hospital formulary. BP stable (5) A-fib: Atrial paced, not on anticoagulation as outpatient. ChadsVasc score of 4. Continue metoprolol. (6) GERD (gastroesophageal reflux disease): Continue PPI therapy with pantoprazole. (7) CAD (coronary artery disease): History of multiple ZOFIA placement including PCI of the LAD. Episode of unstable angina 2002. Also s/p PCI to RCA, and catheterization August 2012 with PCI to LAD. Negative dobutamine stress echo/EKG in September 2022. Continue Plavix + ASA. Continue amlodipine, HCTZ, metoprolol, spironolactone. Ramipril switched to enalapril per hospital formulary. (8) DENICE (obstructive sleep apnea): Patient refuses CPAP at night, prefers 2LNC with sleep. Mild hypercapnea noted on ABG. (9) Neurogenic bladder: Has a chronic suprapubic catheter. Local care. (10) Depression: Continue duloxetine and trazodone at night. Plan DNR/DNI in non-surgical circumstances Disposition: discharge to home today with 24/7 care from spouse Total Time Total Time Spent Total Time Spent (In Minutes): 35 Discharge Plan Discharge Items Patient Disposition: Home - Self-Care Reason For Visit: UTI Discharge Diagnosis: Paralysis Complicated UTI - resolved Incision and drainage thoracic spine with evacuation of seroma, placement of antibiotic beads - Barry Almaraz, DO Loose hardware - removal of T5 and T7 pedicle screws, - Barry Almaraz, DO Condition on Discharge: Good Activity: Resume your previous activity Lifting: None Weightbearing Comment: lowere extremity paraplegia Non-emergency contact: Primary Care Provider and Surgeon Call non-emergency contact if: you have any medication questions, your temperature is above 101.5, your wound has increased redness and your wound has increased drainage Follow-up/Referrals: Fransico Mccoy MD [Primary Care Provider] - (PLEASE CALL YOUR PRIMARY CARE PROVIDER TO SCHEDULE A DISCHARGE FOLLOW-UP APPOINTMENT WITHIN 7-10 DAYS) Diet: Carb Consistent or DM2 Diet Texture: Easy to Chew Diet Comment: minced and moist diet Addtl Attending Provider Instructions: You were admitted with fever and groin pain and found to have a urinary tract infection and were treated with appropriate antibiotics. You also were evaluated by Dr Almaraz, since you had recent back surgery with him last month. You were taken to the OR with Dr Almaraz to rule out discitis. You were found to have a collection of fluid and loose hardware. The loose hardware was removed and the pocket of fluid was drained. Antibiotic beads were placed during the surgery and also a drain was placed. The surgeon stated that the drain was able to be removed today and you could be discharged home. The surgeon also placed recommendations in your chart regarding instructions. You were having back pain and neurology and pain management were consulted as well during your admission. Neurology recommended to Continue baclofen 10 milligrams 4 times a day. Continue duloxetine 120 mg each evening. Continue dantrolene, tizanidine, Lyrica, at usual doses. And they recommended the pain management consult to check your baclofen pump. They were unable to interrogate or test your pump due to the brand not being [employer]. But they stated that you did not appear to have baclofen withdrawal. Physical and occupational therapy continued to work with you also and stated your are able to return home safely under the care of your spouse. Addtl Manager Animal Provider Instructions: ACTIVITY RECOMMENDATIONS: SELF CARE INSTRUCTIONS AFTER THORACIC/LUMBAR FUSIONS 1. You may walk to your tolerance. It is good exercise for your legs and back. Expect some back and intermittent leg aches and pains. 2. You may perform "counter-top" level activities (make a sandwich, antonio with a project, etc.). 3. No bending or lifting of more than 10 pounds or back twisting of any nature (roll like a log when turning in bed). 4. You may ride in a car for 20-30 minutes at a time. No driving until after your first visit with your doctor. 5. Frequent changes of position and restricting sitting to 30 minutes at a time will help limit the amount of back spasms and stiffness you may experience. 6. You may discontinue the use of ambulatory aids (cane, crutches, etc.) once your strength and confidence allow. 7. You may senior bioinformatics specialist the shower and let water strike your incision when you arrive home at least once daily. Do not take a tub bath, sit in a hot tub or go into a swimming pool until after your first recheck in the office. SPECIAL CARE INSTRUCTIONS: VERY IMPORTANT TO READ AND REVIEW A. Your surgical incision has been closed with a cosmetic suture under the skin that will dissolve in about 6 weeks. In 14 days, you can use a pair of clean scissors and cut the suture that is left outside of the skin at the ends of your incision. 1. The small skin tapes can be removed 7 days after surgery if they have not fallen off by that point. 2. You may keep the wound open to air as much as possible to promote healing after post-op day number 5 unless told otherwise by your doctor. 3. If you think the wound looks like it is becoming infected (redness or worsening drainage) and/or you are experiencing fever, chill or worsening back pain and muscle spasms, contact the office so that we may evaluate you as soon as possible. B. Complications are uncommon, but please contact us if you have any signs or symptoms of: 1. wound infection (fever higher than 102.5 degrees F, redness, separation of wound, drainage, or increasing pain from the incision) 2. blood clots in legs (pain, swelling, redness and warmth in legs) 3. urinary tract infection (fever higher than 102.5 degrees F, burning upon urination or increased frequency of urination) 4. nerve problems (inability to walk on your toes or heels, numbness, loss of bowel or bladder control) 5. any other symptoms that concern you C. Please call the office at if you have any concerns or questions about your operation or recovery. D. No smoking! Smoking drastically decreases the chance of a solid fusion. E. Do not take any anti-inflammatory medications (Indocin, Advil, Motrin, Aspirin, Naprosyn, etc.) as these may inhibit the chance of a solid fusion. Tylenol is okay to take for pain. MANAGING PAIN AFTER SPINAL SURGERY 1. Narcotic medication is intended for short-term use and will be provided for surgical pain. Surgical pain usually lasts for a period of 4-6 weeks. Narcotic medication includes Percocet, Vicodin, Darvocet, Tylenol #3 or Lortab. 2. Longer-term pain is more appropriately treated with non-narcotic medication such as Tylenol ES. 3. Muscle spasm is not appropriately treated with narcotics. Muscle relaxers such as Soma, Flexeril or Skelaxin can be used along with Tylenol ES. 4. Remember that we all live with some "aches and pains". This is not unusual or uncommon after an injury or as we get older. a. Back pain is expected and may include muscle spasms for 4 to 6 weeks after surgery. The pain should gradually improve. If the pain worsens for no apparent reason, please contact the office. b. Intermittent leg pain may also be experienced and should not be concerned about unless it worsens for no apparent reason. If so, please contact the office. 5. We will provide appropriate medication within the normal guidelines of their prescribed use. We will also be very cautious and aware of potential abuse and extended duration of patients' medication needs. a. Pain medications are for your comfort and to assist with sleep and rest so that the tissue can heal. They are not provided in order to return to normal activity and should not be used through the day. To do so or worsening pain at night can result from ongoing tissue damage and development of tolerance to the prescribed medicine. 6. Please allow 2-3 days to process refills. Prescriptions will not be mailed but must be picked up at the office. FOLLOW UP VISIT: Keep your scheduled follow-up appointment. Any questions, please call the office at . Pending Studies at Discharge: No Stand-Alone Forms: My [facility] Medications and DC Order Prescriptions: Continued tizanidine 4 mg capsule 4 mg PO TID polyethylene glycol 3350 [Miralax] 17 gram/dose powder 17 g PO HS bisacodyl [Dulcolax (bisacodyl)] 10 mg suppository 10 mg NV QAM PRN (Reason: Constipation) metformin 1,000 mg tablet 1,000 mg PO BID lidocaine 5 % ointment 1 applic topical Q6H Myrbetriq 50 mg tablet extended release 24 hr 50 mg PO QAM omeprazole 20 mg capsule,delayed release(DR/EC) 20 mg PO BID multivitamin Tablet 1 tab PO QAM clopidogrel [Plavix] 75 mg Tablet 75 mg PO QAM nitroglycerin [Nitrostat] 0.4 mg Tablet, Sublingual 1 tab Sublingual UD PRN (Reason: Chest Pain) fluticasone propionate [Flonase Allergy Relief] 50 mcg/actuation [place],Suspension 1 spray INTRANASAL QAM PRN (Reason: Nasal Congestion) docusate sodium 100 mg Tablet 100 mg PO TID coenzyme Q10 [CoQ-10] 100 mg Capsule 100 mg PO HS calcium carbonate-vitamin D3 [Calcium 500 + D] 500 mg(1,250mg) -200 unit Tablet 1 tab PO BID trazodone 50 mg Tablet 25 mg PO HS duloxetine 60 mg Capsule,Delayed Release(Dr/Ec) 60 mg PO HS sennosides 8.6 mg Tablet 8.6 mg PO BID aspirin 81 mg Tablet,Delayed Release (Dr/Ec) 81 mg PO HS carvedilol 12.5 mg tablet 6.25 mg PO BID alendronate 70 mg tablet 70 mg PO WK Rx Instructions: Wednesday bacitracin zinc 500 unit/gram ointment 1 applic TOPICAL QAM PRN (Reason: Skin Irritation) cyanocobalamin (vitamin B-12) [Vitamin B-12] 500 mcg Tablet 1,000 mcg PO DAILY Rx Instructions: 1200 clotrimazole 1 % cream 1 applic TOPICAL BID PRN (Reason: SKIN IRRITATION ON CHEST) cholecalciferol (vitamin D3) [Vitamin D3] 25 mcg (1,000 unit) Capsule 50 mcg PO QDL furosemide 40 mg tablet 40 mg PO QAM lidocaine HCl 2 % jelly 1 applic topical DIRECTED PRN (Reason: BOWEL PROGRAM) spironolactone 25 mg tablet 25 mg PO QAM lidocaine 5 % adhesive patch,medicated 1 patch transdermal ONAMOFFPM PRN (Reason: Back Pain) nitroglycerin 400 mcg/spray spray,non-aerosol 1 spray translingual UD PRN (Reason: Chest Pain) nystatin 100,000 unit/gram powder 1 applic TOPICAL BID PRN (Reason: Skin Irritation) ramipril 10 mg capsule 10 mg PO BID baclofen 10 mg tablet 10 mg PO QID PRN (Reason: MUSCLE SPASMS) pregabalin 225 mg capsule 225 mg PO BID desonide 0.05 % Cream 1 applic TOPICAL BID PRN (Reason: SKIN IRRITATION ON FACE) magnesium oxide 420 mg Tablet 420 mg PO DAILY Label Comments: 1200 dantrolene 25 mg Capsule 25 mg PO TID cetirizine [Zyrtec] 10 mg Tablet 10 mg PO QAM carboxymethylcellulose sodium 0.5 % Drops 1 drp OPL QID clobetasol 0.05 % Solution 1 applic TOPICAL BID PRN (Reason: EAR DERMATITIS) Hemorrhoidal Cream 0.25-1 % Cream 1 applic NV HS PRN (Reason: Hemorrhoids) Renacidin 1,980.6 mg-59.4 mg-980.4mg/30mL Solution 30 ml irrigation DAILY PRN (Reason: NEEDED) Rx Instructions: IRRIGATE BLADDER AND CLAMP CATH FOR 15-20 MIN. pitavastatin magnesium 4 mg Tablet 4 mg PO HS Saline Nasal 0.65 % Aerosol,[place] 1 spray INTRANASAL Q2H PRN (Reason: NASAL DRYNESS) benzonatate 100 mg capsule 100 mg PO TID PRN (Reason: cough) Qty: 15 0RF Minie Ememez Plus 1 dose NV QAM hydrocodone-acetaminophen 10-325 mg Tablet 1 tab PO Q4 PRN (Reason: Pain) Ozempic 1 mg/dose (2 mg/1.5 mL) Pen Injector 1 mg SUBCUT WK Rx Instructions: tuesdays Discharge Orders: Discharge Order (Routine); Ordered 11/14/22 Ordered By: Cassandra Chaudhari Admission Data Admit Date/Time: 11/04/22 21:15 Attending Provider: Michael Maldonado Admit Provider: Corona Gordon Primary Care Provider: Fransico Mccoy Other Providers: [facility] ; Corona Gordon ; Esdras Ho ; Yariel Oneil ; Freddy Galindo ; Arlyn Turner ; Wisam Lawler ; Uma Black ; Claudia Mendoza ; Yordy Manning ; Meghna Medeiros ; Zayda Abraham ; Robert Wheat ; Channing Mock ; Royce Nguyen ; Kecia Ruiz ; Barry Almaraz Other Interventions: Discharge Summary Assessment (RN) Last Done: 11/14/22 12:59 Supervising Physician Co-Signing Physician Notes Patient seen and examined at bedside. During face to face encounter, I obtained a history of her hospital stay, and obtained a physical examination. I discussed discharge plan with patient and ALBA Chaudhari. I reviewed above note and agree with it. Patient was seen and examined for UTI. Patient was treated with antibiotics as above. Coding Level of Care Code HOSP INP/OBS DISCH >30 MIN Diagnoses Paralysis G83.9 Acute UTI N39.0 Type 2 diabetes mellitus E11.9 Hypertension I10 Hypertension type: essential hypertension A-fib I48.0 Atrial fibrillation type: paroxysmal GERD (gastroesophageal reflux disease) K21.9 CAD (coronary artery disease) I25.10 DENICE (obstructive sleep apnea) G47.33 Neurogenic bladder N31.9 Depression F32.9 Time Spent (min) 35
[2022-11-14] MEDS: CHOLECALCIFEROL 1,000 UNITS 25 MCG TAB PO SCH (12:36)
[2022-11-14] MEDS: CYANOCOBALAMIN (B-12) 500 MCG TABLET PO SCH (12:37)
[2022-11-14] MEDS: HYDROcodone/ACETAMINOPHEN 10/325 TAB PO PRN (12:45)
== END 2022-11-14 14:00 | disposition home or self-care (01) | DRG 987 ==
LOC: ED 16:08 → SUATTDRO 21:15 → EDINP 21:15 → 3E 11-05 00:17 → 4W 11-08 19:03 → 1E 11-09 16:01 → 2N 11-10 15:40